=== PATIENT | male | born 1950 | race African-American/Black ===

== ENCOUNTER 2018-08-10 04:00 | Inpatient (IN) | payer MEDICARE, OTHER ==
[~2018-08-10] VITALS: Ht 167.6 cm; Wt 51.9 kg
[2018-08-10 04:01] VITALS: BP 105/83
--- NOTE | 2018-08-10 04:12 | NUR ---
ED Nurse Note: pt was brought in by [facility] from [facility] c/o decrease appetite, per ems, pt loss 5lbs in a month. pt neuro assessment is pt is alert and oriented times 1, however, pt is able to follow simple commands such as "Turn to side". pt pupiles are round and reactive to light and accomodating. pt cardicac assessment is within normal limits except for HR of 106 in initial assessment. S1 and S2 are noted. pulse and sensaton is noted on all 4 extremities. pt has both legs amputated. pt resperation assessment is within normal limits, all lung sounds are clear on ascultation, no SOB noted, pt O2 is 95 %.
[2018-08-10] MEDS ORDERED: DOCUSATE SODIU100 MG ORAL (04:43)
[2018-08-10] MEDS ORDERED: MEGESTROL ACETA40 MG PO (04:43)
[2018-08-10] MEDS ORDERED: PLAVIX75 MG ORAL (04:43)
[2018-08-10] MEDS ORDERED: EMERGEN-C 500500 MG PO (04:43)
[2018-08-10] MEDS ORDERED: ATORVASTATIN CA80 MG ORAL (04:43)
[2018-08-10] MEDS ORDERED: MILK OF MA2400 MG/10 ORAL (04:43)
[2018-08-10] MEDS ORDERED: ASPIR 8181 MG ORAL (04:43)
[2018-08-10] MEDS ORDERED: TRAMADOL HCL50 MG ORAL (04:43)
[2018-08-10] MEDS ORDERED: PRO-STAT LIQUID30 ML ORAL (04:43)
[2018-08-10] MEDS ORDERED: ACETAMINOPHEN325 M1 ORAL (04:43)
[2018-08-10] MEDS ORDERED: MELATONIN3 MG ORAL (04:43)
--- NOTE | 2018-08-10 05:14 | Emergency Room Report ---
History of Present Illness General Chief Complaint: General Complaint Source: Patient Present Illness HPI This is a 67-year-old male with a history of CVA, diabetes with bilateral BKA. He presents with altered mental status with decreased appetite. Also with a 5 pound weight loss in the last month. Unable to get any history because of patient condition. Allergies: Coded Allergies: No Known Allergies (Unverified , 08/10/18) Patient History Past Medical History: see triage record, old chart reviewed Past Surgical History: other - Bilateral AKA Pertinent Family History: none Social History: Denies: smoking Immunizations: other Reviewed Nursing Documentation: PMH: Agreed; PSxH: Agreed Nursing Documentation-PMH Hx Hypertension: Yes Hx Diabetes: Yes Review of Systems Constitutional: Reports: weakness All Other Systems: limited - Patient is nonverbal Physical Exam Vital Signs Date Time Temp Pulse Resp B/P (MAP) Pulse Ox O2 Delivery O2 Flow Rate FiO2 08/10/18 03:52 98.2 59 20 105/83 99 08/10/18 04:01 Room Air 98 vitals unremarkable Sp02 EP Interpretation: reviewed, normal General Appearance: cachetic, thin, Chronically Ill Head: normocephalic, atraumatic Eyes: bilateral eye PERRL, bilateral eye EOMI ENT: hearing grossly normal, dry mucus membranes Neck: full range of motion, supple, no meningismus Respiratory: chest non-tender, lungs clear, normal breath sounds Cardiovascular #1: regular rate, rhythm, no murmur Gastrointestinal: normal bowel sounds, non tender, no mass, no organomegaly, no bruit, non-distended Musculoskeletal: back normal, other - Contracted, bilateral AKA Psychiatric: mood/affect normal Skin: warm/dry Medical Decision Making Diagnostic Impression: Primary Impression: UTI (urinary tract infection) Qualified Codes: N30.00 - Acute cystitis without hematuria Additional Impressions: ARF (acute renal failure) Qualified Codes: N17.9 - Acute kidney failure, unspecified Severe dehydration FTT (failure to thrive) in adult Anemia, unspecified Qualified Codes: D64.9 - Anemia, unspecified Proteinuria Qualified Codes: R80.9 - Proteinuria, unspecified ER Course Patient presents with generalize weakness. He is very dehydrated. Urine was just very purulent-looking. Antibiotic started. IV fluid given. Patient is perking up more and more alert. Patient will be admitted for IV antibiotics and IV fluid. I discussed the case with Dr. Marshall who will admit. Lab Results Impression labs with leukocytosis and renal failure Last Vital Signs Date Time Temp Pulse Resp B/P (MAP) Pulse Ox O2 Delivery O2 Flow Rate FiO2 08/10/18 04:01 59 20 Room Air 98 08/10/18 04:01 98.2 105/83 99 Status: improved Disposition: ADMITTED INPATIENT Condition: Serious Konstantin Galdamez MD Aug 10, 2018 05:14
[2018-08-10] MEDS ORDERED: Cefepime HCl 1 GM in D5W 55 ML IVPB ONE (05:15)
[2018-08-10 05:33] LABS: HEMATOCRIT 36.9 % (42.0-52.0); HEMOGLOBIN 11.8 G/DL (14.2-18.0); MEAN CORPUSCULAR VOLUME 86 FL (80-99); PLATELET COUNT 434 K/UL (150-450); RED BLOOD COUNT 4.29 M/UL (4.70-6.10); RED CELL DISTRIBUTION WIDTH 15.5 % (11.6-14.8); WHITE BLOOD COUNT 18.5 K/UL (4.8-10.8)
[2018-08-10 05:34] LABS: APPEARANCE,URINE VERY CLOUDY; BILIRUBIN, URINE NEGATIVE (NEGATIVE); COLOR,URINE PALE YELLOW; GLUCOSE, URINE (UA) NEGATIVE (NEGATIVE); KETONES,URINE 1+ (NEGATIVE); LEUKOCYTE ESTERASE ,URINE 3+ (NEGATIVE); NITRITE,URINE NEGATIVE (NEGATIVE); PH,URINE 8 (4.5-8.0); PROTEIN,URINE 3+ (NEGATIVE); UROBILINOGEN,URINE 1 MG/DL (0.0-1.0)
[2018-08-10 05:48] LABS: ANION GAP 17 mmol/L (5-15); BLOOD UREA NITROGEN 107 mg/dL (7-18); CALCIUM 9.5 MG/DL (8.5-10.1); CARBON DIOXIDE 16 MMOL/L (21-32); CHLORIDE 110 MMOL/L (98-107); CREATININE 3.1 MG/DL (0.55-1.30); POTASSIUM 4.6 MMOL/L (3.5-5.1); SODIUM 143 MMOL/L (136-145)
[2018-08-10 05:58] LABS: ALANINE AMINOTRANSFERASE 13 U/L (12-78); ALBUMIN 2.4 G/DL (3.4-5.0); ALBUMIN/GLOBULIN RATIO 0.4 (1.0-2.7); ALKALINE PHOSPHATASE 91 U/L (46-116); ASPARTATE AMINO TRANSFERASE 14 U/L (15-37); BILIRUBIN,TOTAL 1.3 MG/DL (0.2-1.0)
[2018-08-10 06:00] VITALS: BP 142/75
[2018-08-10 06:00] LABS: BILIRUBIN,DIRECT 0.8 MG/DL (0.0-0.3)
--- NOTE | 2018-08-10 06:06 | NUR ---
ED Nurse Note: nurse on the snf phone number nurse maurisio [phone]. rehab address, [address] [place] [address]
--- NOTE | 2018-08-10 07:20 | NUR ---
HAND-OFF: Report given to EFFIE SMITH.
[2018-08-10 08:00] VITALS: BP 122/73
--- NOTE | 2018-08-10 08:46 | NUR ---
ED Nurse Note: Report given to Renetta SMITH of Med Surg unit.
[2018-08-10] MEDS ORDERED: D5 1/2NS 1,000 ML IV SCH (14:00)
--- NOTE | 2018-08-10 14:01 | Consultation ---
Consult Note Consult Note Asked to eval at the request of Dr Marshall for renal failure This is a 67-year-old male with a history of CVA, diabetes with bilateral BKA. He presents with altered mental status with decreased appetite. Also with a 5 pound weight loss in the last month. Unable to get any history because of patient condition. No Known Allergies (Unverified , 08/10/18) Past Surgical History: other - Bilateral AKA Hx Hypertension: Yes Hx Diabetes: Yes examined Poor historian data reviewed Assessment/Plan Acute Renal Failure Likely Underlying CKD Dehydration FTT , HypoAlbuminemia UTI Anemia DM , ? Nephropathy CAD Reocephin IV fluids Anemia jorge Monitor I&O and renal parameters Per orders Gennaro Cagle MD Aug 10, 2018 14:01
[2018-08-10 16:00] VITALS: BP 93/70
[2018-08-10] MEDS ORDERED: cefTRIAXone 1 GM in D5W 55 ML IVPB SCH (16:00)
[2018-08-10] MEDS: Pantoprazole Inj IVP SCH ×2 (16:15→21:12)
[2018-08-10] MEDS: Heparin 5000 units/ml inj SUBQ SCH ×2 (16:17→21:13)
[2018-08-10] MEDS ORDERED: traMADol 50mg tab ORAL PRN (16:30)
[2018-08-10] MEDS ORDERED: Acetaminophen 500mg (ES) tab ORAL PRN (16:30)
--- NOTE | 2018-08-10 16:31 | History & Physical ---
History and Physical History & Physicial JoB # [id number] Yannick Marshall MD Aug 10, 2018 16:31
--- NOTE | 2018-08-10 17:00 | NUR ---
NURSE NOTES: placed Pelayo catheter Fr 16, return of small amount of cloudy dark yellow urine noted.
--- NOTE | 2018-08-10 17:12 | Consultation ---
History of Present Illness General Date patient seen: Aug 10, 2018 Chief Complaint: General Complaint Present Illness HPI 67-year-old male with a history of CVA, diabetes with bilateral BKA, dementia, half-way resident brought in for evaluation of altered mental status with decreased appetite. . Unable to get any history because of patient condition. Pt was found to be in renal failure and septic. He is admitted for further management. Allergies: Coded Allergies: No Known Allergies (Unverified , 08/10/18) Medication History Scheduled Amino Acids/Protein Hydrolys (Pro-Stat Liquid), 30 ML ORAL TWICE A DAY, ( Reported) Aspirin* (Aspir 81*), 81 MG ORAL DAILY, (Reported) Atorvastatin Calcium* (Lipitor*), 80 MG ORAL BEDTIME, (Reported) Clopidogrel Bisulfate* (Plavix*), 75 MG ORAL DAILY, (Reported) Docusate Sodium* (Docusate Sodium*), 100 MG ORAL TWICE A DAY, (Reported) Magnesium Hydroxide* (Milk Of Magnesia*), 30 ML ORAL DAILY, (Reported) Scheduled PRN Acetaminophen* (Acetaminophen 325MG Tablet*), 500 MG ORAL Q4H PRN for Moderate Pain (Pain Scale 4-6), (Reported) Melatonin (Melatonin), 4 MG ORAL BEDTIME PRN for Insomnia, (Reported) Tramadol Hcl* (Ultram*), 50 MG ORAL Q6H PRN for For Pain, (Reported) Miscellaneous Medications Megestrol Acetate (Megestrol Acetate), 40 MG PO, (Reported) Vit C/Ascorb Sod/Multivit-Min (Emergen-C 500 mg Chewable Tab), 500 MG PO, ( Reported) Patient History Healthcare decision maker Resuscitation status Advanced Directive on File Past Medical/Surgical History Past Medical/Surgical History: (1) DM (2) CVA (cerebral vascular accident) (3) Proteinuria (4) S/P AKA (above knee amputation) bilateral Review of Systems All Other Systems: negative except mentioned in HPI Physical Exam General Appearance: cachetic Lines, tubes and drains: peripheral HEENT: normocephalic, atraumatic Neck: non-tender, supple Respiratory/Chest: chest wall non-tender, lungs clear Cardiovascular/Chest: normal peripheral pulses Abdomen: normal bowel sounds Genitourinary/Rectal: normal genital exam Extremities: normal range of motion Last 24 Hour Vital Signs Date Time Temp Pulse Resp B/P (MAP) Pulse Ox O2 Delivery O2 Flow Rate FiO2 08/10/18 08:55 98.5 113 16 122/73 100 Room Air 08/10/18 08:00 98.5 113 16 122/73 100 Room Air 08/10/18 06:00 98.2 65 16 142/75 99 08/10/18 04:01 59 20 Room Air 98 08/10/18 04:01 98.2 61 20 105/83 99 08/10/18 03:52 98.2 59 20 105/83 99 Laboratory Tests Test 08/10/18 05:01 White Blood Count 18.5 K/UL (4.8-10.8) H Red Blood Count 4.29 M/UL (4.70-6.10) L Hemoglobin 11.8 G/DL (14.2-18.0) L Hematocrit 36.9 % (42.0-52.0) L Mean Corpuscular Volume 86 FL (80-99) Mean Corpuscular Hemoglobin 27.5 PG (27.0-31.0) Mean Corpuscular Hemoglobin Concent 32.0 G/DL (32.0-36.0) Red Cell Distribution Width 15.5 % (11.6-14.8) H Platelet Count 434 K/UL (150-450) Mean Platelet Volume 5.5 FL (6.5-10.1) L Neutrophils (%) (Auto) % (45.0-75.0) Lymphocytes (%) (Auto) % (20.0-45.0) Monocytes (%) (Auto) % (1.0-10.0) Eosinophils (%) (Auto) % (0.0-3.0) Basophils (%) (Auto) % (0.0-2.0) Differential Total Cells Counted 100 Neutrophils % (Manual) 72 % (45-75) Lymphocytes % (Manual) 21 % (20-45) Monocytes % (Manual) 7 % (1-10) Eosinophils % (Manual) 0 % (0-3) Basophils % (Manual) 0 % (0-2) Band Neutrophils 0 % (0-8) Platelet Estimate Adequate Platelet Morphology Normal Red Blood Cell Morphology Normal Urine Color Pale yellow Urine Appearance Very cloudy Urine pH 8 (4.5-8.0) Urine Specific Garrison 1.010 (1.005-1.035) Urine Protein 3+ (NEGATIVE) H Urine Glucose (UA) Negative (NEGATIVE) Urine Ketones 1+ (NEGATIVE) H Urine Blood 5+ (NEGATIVE) H Urine Nitrite Negative (NEGATIVE) Urine Bilirubin Negative (NEGATIVE) Urine Urobilinogen 1 MG/DL (0.0-1.0) H Urine Leukocyte Esterase 3+ (NEGATIVE) H Urine RBC Tntc /HPF (0 - 0) H Urine WBC Tntc /HPF (0 - 0) H Urine Squamous Epithelial Cells Occasional /LPF Urine Bacteria Many /HPF (NONE) H Sodium Level 143 MMOL/L (136-145) Potassium Level 4.6 MMOL/L (3.5-5.1) Chloride Level 110 MMOL/L (98-107) H Carbon Dioxide Level 16 MMOL/L (21-32) L Anion Gap 17 mmol/L (5-15) H Blood Urea Nitrogen 107 mg/dL (7-18) H Creatinine 3.1 MG/DL (0.55-1.30) H Estimat Glomerular Filtration Rate 24.4 mL/min (>60) Glucose Level 123 MG/DL (74-106) H Calcium Level 9.5 MG/DL (8.5-10.1) Total Bilirubin 1.3 MG/DL (0.2-1.0) H Direct Bilirubin 0.8 MG/DL (0.0-0.3) H Aspartate Amino Transf (AST/SGOT) 14 U/L (15-37) L Alanine Aminotransferase (ALT/SGPT) 13 U/L (12-78) Alkaline Phosphatase 91 U/L (46-116) Troponin I 0.015 ng/mL (0.000-0.056) C-Reactive Protein, Quantitative 8.0 mg/dL (0.00-0.90) H Total Protein 9.2 G/DL (6.4-8.2) H Albumin 2.4 G/DL (3.4-5.0) L Globulin 6.8 g/dL Albumin/Globulin Ratio 0.4 (1.0-2.7) L Microbiology Date/Time Source Procedure Growth Status 08/10/18 07:12 Rectum Received Height (Feet): 4 Weight (Pounds): 123 Medications Current Medications Medications (Trade) Dose Ordered Sig/Jennifer Route PRN Reason Start Time Stop Time Status Last Admin Dose Admin Acetaminophen (Tylenol) 500 mg Q4H PRN ORAL Moderate Pain (Pain Scale 4-6) 08/10/18 16:30 09/09/18 16:29 Aspirin (Ecotrin) 81 mg DAILY ORAL 08/11/18 09:00 09/10/18 08:59 Atorvastatin Calcium (Lipitor) 80 mg BEDTIME ORAL 08/10/18 21:00 09/09/18 20:59 Ceftriaxone Sodium 1 gm/ Dextrose 55 ml @ 110 mls/hr Q24H IVPB 08/10/18 16:00 08/17/18 15:59 08/10/18 16:11 Clopidogrel Bisulfate (Plavix) 75 mg DAILY ORAL 08/11/18 09:00 09/10/18 08:59 Dextrose (Dextrose 50%) 25 ml Q30M PRN IV Hypoglycemia 08/10/18 16:30 09/09/18 16:29 Dextrose (Dextrose 50%) 50 ml Q30M PRN IV Hypoglycemia 08/10/18 16:30 09/09/18 16:29 Dextrose/Sodium Chloride 1,000 ml @ 150 mls/hr Q6H40M IV 08/11/18 14:00 09/09/18 13:59 UNV Heparin Sodium (Porcine) (Heparin 5000 units/ml) 5,000 units EVERY 8 HOURS SUBQ 08/10/18 14:00 09/09/18 13:59 08/10/18 16:17 Insulin Aspart (NovoLOG) BEFORE MEALS AND HS SUBQ 08/10/18 16:30 09/09/18 16:29 Magnesium Hydroxide (Mom) 30 ml DAILY ORAL 08/11/18 09:00 09/10/18 08:59 Megestrol Acetate (Megace) 40 mg BID ORAL 08/10/18 18:00 08/15/18 17:59 Pantoprazole (Protonix) 40 mg EVERY 12 HOURS IVP 08/10/18 14:00 09/09/18 13:59 08/10/18 16:15 Tramadol HCl (Ultram) 50 mg Q6H PRN ORAL severe pain 08/10/18 16:30 08/17/18 16:29 Assessment/Plan Problem List: (1) ARF (acute renal failure) ICD Codes: N17.9 - Acute kidney failure, unspecified SNOMED: 32638566 Qualifiers: Qualified Codes: N17.9 - Acute kidney failure, unspecified (2) Severe dehydration ICD Codes: E86.0 - Dehydration SNOMED: 840156606 (3) UTI (urinary tract infection) ICD Codes: N39.0 - Urinary tract infection, site not specified SNOMED: 77053104 Qualifiers: Qualified Codes: N30.00 - Acute cystitis without hematuria (4) FTT (failure to thrive) in adult ICD Codes: R62.7 - Adult failure to thrive SNOMED: 868649377 Assessment/Plan IV fluids check electrolytes renal studies urine electrolytes might need PEG. dvt prophylaxis Jaylin Dickson MD Aug 10, 2018 17:12
[2018-08-10] MEDS: D5 1/2NS 1,000 ML IV SCH ×2 (17:24→23:48)
[2018-08-10] MEDS: NovoLOG Insulin Flexpen SUBQ SCH ×2 (17:26→21:13)
--- NOTE | 2018-08-10 18:40 | Diagnostic Imaging Report ---
EXAM: XR Chest, 1 View CLINICAL HISTORY: Fatigue, shortness of breath. TECHNIQUE: Frontal view of the chest. COMPARISON: None available FINDINGS: Lungs: Right lung is clear. Left lung shows linear atelectatic changes in the setting of left diaphragmatic elevation. Pleural space: No pneumothorax or pleural effusion. Heart: Normal heart and mediastinal contours with mild tortuosity of the thoracic aorta are noted. No widening or shift. Mediastinum: Unremarkable. Bones/joints: No acute or aggressive osseous lesions. Soft tissues: Surgical clips in the right axilla are incidentally noted. IMPRESSION: Linear atelectasis at the left lung base and left diaphragmatic elevation.
--- NOTE | 2018-08-10 19:00 | NUR ---
HAND-OFF: Report given to SARAH Lee.
[2018-08-10 20:00] VITALS: BP 157/72
--- NOTE | 2018-08-10 20:00 | NUR ---
NURSE NOTES: Patient received in bed, awake. Bed is locked in low position. IV infusing on MAHNAZ. FC draining light ramesh urine via gravity. Will continue to monitor.
[2018-08-10] MEDS ORDERED: Atorvastatin 80mg tab ORAL SCH (21:00)
--- NOTE | 2018-08-10 22:00 | History and Physical Report ---
DATE OF ADMISSION: 08/10/2018 CHIEF COMPLAINT: Transferred from the nursing facility after decreased oral intake. 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 Shortly after initial evaluation, the patient was admitted to the hospital with acute kidney infection on chronic renal insufficiency as well as UTI, severe dehydration. PAST MEDICAL HISTORY/PAST SURGICAL HISTORY: As above. History of DVT of lower extremity, bilateral lower extremity AKA due to the severe infection, sepsis, diabetes type 2, hypertension, prior history of stroke x2, dysphagia, advanced dementia, history of chronic smoker in the past, alcohol abuse, and heroin abuse. MEDICATIONS: Please refer to medication reconciliation. ALLERGIES: No known drug allergies. SOCIAL HISTORY: The patient at this time is not smoking or alcohol abuse. longterm resident, however, history of smoking, alcohol abuse, and heroin abuse in the past. FAMILY HISTORY: Noncontributory. REVIEW OF SYSTEMS: Very limited secondary to the patient's status. The patient is nonverbal. Most of the history is taken from the custodial documentation as well as the ER note. No fever or chills was recorded. No loss of consciousness, however, decreased oral intake. PHYSICAL EXAMINATION: VITAL SIGNS: On admission, temperature 98.2, pulse of 59, respirations 20, and blood pressure 105/83. GENERAL: The patient is awake and responsive, but not verbal. HEAD AND NECK: Pupils equal and reactive to light. Extraocular movements intact. NECK: Supple. No JVD. LUNGS: air entry, poor inspiratory effort. No wheeze or rhonchi. HEART: S1, S2. Distant heart sounds. No murmur or gallops. ABDOMEN: Soft, nondistended, nontender. Positive bowel sounds. EXTREMITIES: No cyanosis or clubbing. The patient has bilateral AKA, contracted. NEUROLOGIC: Cranial nerves II through XII are grossly intact. The patient is moving all the extremities spontaneously. Gait was not assessed due to the patient's status. LABORATORY DATA: On admission from the ER, WBC of 18.5, hemoglobin 11, hematocrit 36, and platelet is 434,000. Sodium 143, potassium 4.6, chloride 110, bicarbonate 16, BUN 107, creatinine 3.1, GFR is 24, glucose is 123, AST of 14, ALT of 13. is 0.015. CRP is 8.0. Total protein is 9.2, albumin is 2.4. Urinalysis is +3 protein, +1 ketone, +5 blood, negative nitrite, +3 leukocyte tainted, rbc tainted, wbc , many bacteria. ASSESSMENT: 1. Acute kidney injury on chronic renal insufficiency. 2. Failure to thrive. 3. Severe dehydration. 4. Decreased oral intake. 5. Diabetes type 2. 6. Status post bilateral lower extremity AKA. 7. Hypertension, presently normotensive. 8. Advanced dementia. 9. Prior history of stroke x2. 10. Ex-smoker. 11. History of alcohol abuse. 12. History of heroin abuse. 13. Severe protein-calorie malnutrition. PLAN: We will continue broad-spectrum antibiotic, Rocephin. Follow up with cultures and laboratory. IV hydration. Accu-Chek with sliding scale. We will continue to get nutritional consultation. Code status at this time is Full Code and for DVT prophylaxis, heparin subcutaneous. Discussed with Dr. Dickson from Pulmonary/Critical Care and Dr. Cagle from Nephrology. Yannick Marshall M.D. DR: Hien JOB#: [id number] CC:
[2018-08-11] VITALS: BP 134/73
--- NOTE | 2018-08-11 02:13 | NUR ---
NURSE NOTES: Noted patient muro cath bag draining pinkish urine now from light ramesh urine earlier. Message left to Dr. Marshall.
[2018-08-11 04:00] VITALS: BP 145/78
[2018-08-11] MEDS: Heparin 5000 units/ml inj SUBQ SCH (05:15)
[2018-08-11] MEDS: D5 1/2NS 1,000 ML IV SCH ×3 (05:23→18:22)
[2018-08-11] MEDS: NovoLOG Insulin Flexpen SUBQ SCH ×4 (05:25→21:00)
[2018-08-11] MEDS ORDERED: cefTRIAXone 1 GM in D5W 55 ML IVPB SCH (06:00)
[2018-08-11 06:45] LABS: BASOPHILS % (AUTO) 0.2 % (0.0-2.0); EOSINOPHILS % (AUTO) 0.1 % (0.0-3.0); HEMATOCRIT 30.5 % (42.0-52.0); HEMOGLOBIN 9.7 G/DL (14.2-18.0); LYMPHOCYTES % (AUTO) 14.5 % (20.0-45.0); MEAN CORPUSCULAR VOLUME 87 FL (80-99); MONOCYTES % (AUTO) 7.6 % (1.0-10.0); NEUTROPHILS % (AUTO) 77.5 % (45.0-75.0); PLATELET COUNT 316 K/UL (150-450); RED BLOOD COUNT 3.53 M/UL (4.70-6.10); RED CELL DISTRIBUTION WIDTH 15.7 % (11.6-14.8); WHITE BLOOD COUNT 10.2 K/UL (4.8-10.8)
[2018-08-11 07:18] LABS: ALANINE AMINOTRANSFERASE 9 U/L (12-78); ALBUMIN 1.9 G/DL (3.4-5.0); ALBUMIN/GLOBULIN RATIO 0.3 (1.0-2.7); ALKALINE PHOSPHATASE 75 U/L (46-116); ANION GAP 13 mmol/L (5-15); ASPARTATE AMINO TRANSFERASE 17 U/L (15-37); BILIRUBIN,TOTAL 0.7 MG/DL (0.2-1.0); BLOOD UREA NITROGEN 80 mg/dL (7-18); CALCIUM 8.5 MG/DL (8.5-10.1); CARBON DIOXIDE 17 MMOL/L (21-32); CHLORIDE 119 MMOL/L (98-107); CHOLESTEROL 88 MG/DL (< 200); CREATININE 2.2 MG/DL (0.55-1.30); FERRITIN 1236 NG/ML (8-388); GAMMA GLUTAMYL TRANSPEPTIDASE 20 U/L (5-85); HDL CHOLESTEROL 30 MG/DL (40-60); PHOSPHORUS 3.2 MG/DL (2.5-4.9); POTASSIUM 3.1 MMOL/L (3.5-5.1); SODIUM 149 MMOL/L (136-145); TRIGLYCERIDES 68 MG/DL (30-150)
--- NOTE | 2018-08-11 07:18 | NUR ---
NURSE NOTES: Received call from Lab re critical troponin 0.201. Message left to Dr. Marshall.
--- NOTE | 2018-08-11 07:36 | NUR ---
HAND-OFF: Report given to Renetta SMITH. Addendum: 08/11/18 at 0739 by CESILIA BOWSER RN RN Endorsed re: critical lab troponin 0.201
[2018-08-11 07:46] LABS: % IRON SATURATION 12 % (15-50); IRON 13 ug/dL (50-175); TOTAL IRON BINDING CAPACITY 111 ug/dL (250-450)
--- NOTE | 2018-08-11 08:10 | NUR ---
NURSE NOTES: received pt in bed, awake, no sign of pain or discomfort. Patient is aphasic, unable to assess orientation but he complies when asked to turn to sides. Pelayo catheter in place, draining dark yellow urine. IV access at MAHNAZ, saline locked. Bed in the lowest position possible, call light within easy reach, siderails up x3. Will continue to monitor patient and follow up with the plan of care. Received call from dr. Marshall regarding Trop 0.201 and Pinkish urination following last night heparin administration. Got order of d/c heparin, order has been carried out. Addendum: 08/11/18 at 0835 by MONROE BOSCH RN MAHNAZ access, being infused IVF.
[2018-08-11] MEDS: Pantoprazole Inj IVP SCH ×2 (08:14→19:03)
[2018-08-11] MEDS: Milk of Magnesia 30ml Ud ORAL SCH ×2 (08:14→08:55)
[2018-08-11] MEDS: Aspirin EC 81mg tab ORAL SCH ×2 (08:15→08:54)
--- NOTE | 2018-08-11 08:55 | NUR ---
NURSE NOTES: nurse crushed pt's meds and tried to give it to patient with MOM liquid, but patient refused, with a sudden movement, almost hitting the nurse. Nurse explained the need for him to take those meds, pt still refused.
--- NOTE | 2018-08-11 09:19 | NUR ---
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 UTI VS: BP 142/75, P 113, T 98.3, RR 20, SpO2 99 WBC 18.5, RBC 4.29, Hgb 11.8, Hct 36.9, TROPONIN I 0.201, Urine Protein 3+, Urine Ketones 1+, Urine Blood 5+ CXR IMPRESSION: Linear atelectasis at the left lung base and left diaphragmatic elevation. IS:NS x1L IV CEFEPIME HCI 55ml IVPB HEPARIN SUBQ PROTONIX 40mg D5 NS x1L IV CEFTRIAXONE 55ml LIPITOR 80mg ADMITTED TO MED/SURG DC PLAN: RETURN TO [facility]
--- NOTE | 2018-08-11 11:00 | NUR ---
NURSE NOTES: patient refused am meds, only given Protonix IV. Dr. Marshall notified.
[2018-08-11 11:34] VITALS: BP 94/49
--- NOTE | 2018-08-11 12:13 | NUR ---
RD ASSESSMENT & RECOMMENDATIONS SEE CARE ACTIVITY FOR COMPLETE ASSESSMENT DAILY ESTIMATED NEEDS: Needs based on DM, renal 55.9kg 25-30 kcals/kg 7754-2402 total kcals 1-1.5 g protein/kg 56-84 g total protein 25-30 mL/kg 9977-2131 total fluid mLs NUTRITION DIAGNOSIS: Altered nutrition related lab values r/t clinical status as evidenced by elev NA (149), low K (3.1), elev BUN (80) and creat (2.2), elev BNP (3831). CURRENT DIET: NPO PO DIET RECOMMENDATIONS: W/ POOR PO INTAKE, rec LOW NA diet (texture per PICTURE ENLARGER) ADDITIONAL RECOMMENDATIONS: 1) PICTURE ENLARGER eval for appropriate texture 2) Pt adm w/ WT LOSS-> PLEASE TXR PT TO BED W/ SCALE 3) Monitor po intake and BG/ need for carb restriction 4) Add GLUCERNA 1 tetra tiago TID w/ all meals 5) Obtain weekly wts
--- NOTE | 2018-08-11 15:13 | Internal Med Progress Note ---
Subjective Physician Name Yannick Marshall Attending Physician Yannick Marshall MD Current Medications Medications (Trade) Dose Ordered Sig/Jennifer Route PRN Reason Start Time Stop Time Status Last Admin Dose Admin Acetaminophen (Tylenol) 500 mg Q4H PRN ORAL Moderate Pain (Pain Scale 4-6) 08/10/18 16:30 09/09/18 16:29 Aspirin (Ecotrin) 81 mg DAILY ORAL 08/11/18 09:00 09/10/18 08:59 Atorvastatin Calcium (Lipitor) 10 mg BEDTIME ORAL 08/11/18 21:00 09/09/18 20:59 Ceftriaxone Sodium 1 gm/ Dextrose 55 ml @ 110 mls/hr Q24H IVPB 08/10/18 16:00 08/17/18 15:59 08/10/18 16:11 Clopidogrel Bisulfate (Plavix) 75 mg DAILY ORAL 08/11/18 09:00 09/10/18 08:59 Dextrose (Dextrose 50%) 25 ml Q30M PRN IV Hypoglycemia 08/10/18 16:30 09/09/18 16:29 Dextrose (Dextrose 50%) 50 ml Q30M PRN IV Hypoglycemia 08/10/18 16:30 09/09/18 16:29 Dextrose/Sodium Chloride 1,000 ml @ 100 mls/hr Q10H IV 08/11/18 17:08 09/09/18 17:07 Insulin Aspart (NovoLOG) BEFORE MEALS AND HS SUBQ 08/10/18 16:30 09/09/18 16:29 08/11/18 13:53 Megestrol Acetate (Megace) 40 mg BID ORAL 08/10/18 18:00 08/15/18 17:59 08/10/18 17:24 Pantoprazole (Protonix) 40 mg EVERY 12 HOURS IVP 08/10/18 14:00 09/09/18 13:59 08/11/18 08:14 Tramadol HCl (Ultram) 50 mg Q6H PRN ORAL severe pain 08/10/18 16:30 08/17/18 16:29 Allergies: Coded Allergies: No Known Allergies (Unverified , 08/10/18) Subjective awake, responsive, not verbal. BUN/CR: 80/2.2.2 Objective Last Vital Signs Date Time Temp Pulse Resp B/P (MAP) Pulse Ox O2 Delivery O2 Flow Rate FiO2 08/11/18 11:34 98.0 91 18 94/49 (64) 98 08/10/18 12:00 Room Air 08/10/18 04:01 98 Laboratory Tests Test 08/11/18 05:45 White Blood Count 10.2 K/UL (4.8-10.8) Red Blood Count 3.53 M/UL (4.70-6.10) L Hemoglobin 9.7 G/DL (14.2-18.0) L Hematocrit 30.5 % (42.0-52.0) L Mean Corpuscular Volume 87 FL (80-99) Mean Corpuscular Hemoglobin 27.4 PG (27.0-31.0) Mean Corpuscular Hemoglobin Concent 31.7 G/DL (32.0-36.0) L Red Cell Distribution Width 15.7 % (11.6-14.8) H Platelet Count 316 K/UL (150-450) Mean Platelet Volume 6.1 FL (6.5-10.1) L Neutrophils (%) (Auto) 77.5 % (45.0-75.0) H Lymphocytes (%) (Auto) 14.5 % (20.0-45.0) L Monocytes (%) (Auto) 7.6 % (1.0-10.0) Eosinophils (%) (Auto) 0.1 % (0.0-3.0) Basophils (%) (Auto) 0.2 % (0.0-2.0) Sodium Level 149 MMOL/L (136-145) H Potassium Level 3.1 MMOL/L (3.5-5.1) L Chloride Level 119 MMOL/L (98-107) H Carbon Dioxide Level 17 MMOL/L (21-32) L Anion Gap 13 mmol/L (5-15) Blood Urea Nitrogen 80 mg/dL (7-18) H Creatinine 2.2 MG/DL (0.55-1.30) H Estimat Glomerular Filtration Rate 36.1 mL/min (>60) Glucose Level 141 MG/DL (74-106) H Hemoglobin A1c 5.5 % (4.3-6.0) Uric Acid 12.7 MG/DL (2.6-7.2) H Calcium Level 8.5 MG/DL (8.5-10.1) Phosphorus Level 3.2 MG/DL (2.5-4.9) Magnesium Level 2.1 MG/DL (1.8-2.4) Iron Level 13 ug/dL (50-175) L Total Iron Binding Capacity 111 ug/dL (250-450) L Percent Iron Saturation 12 % (15-50) L Unsaturated Iron Binding 98 ug/dL (112-346) L Ferritin 1236 NG/ML (8-388) H Total Bilirubin 0.7 MG/DL (0.2-1.0) Gamma Glutamyl Transpeptidase 20 U/L (5-85) Aspartate Amino Transf (AST/SGOT) 17 U/L (15-37) Alanine Aminotransferase (ALT/SGPT) 9 U/L (12-78) L Alkaline Phosphatase 75 U/L (46-116) Troponin I 0.201 ng/mL (0.000-0.056) Pro-B-Type Natriuretic Peptide 3831 pg/mL (0-125) H Total Protein 7.6 G/DL (6.4-8.2) Albumin 1.9 G/DL (3.4-5.0) L Globulin 5.7 g/dL Albumin/Globulin Ratio 0.3 (1.0-2.7) L Triglycerides Level 68 MG/DL (30-150) Cholesterol Level 88 MG/DL (< 200) LDL Cholesterol 47 mg/dL (<100) HDL Cholesterol 30 MG/DL (40-60) L Cholesterol/HDL Ratio 2.9 (3.3-4.4) L Lipase 150 U/L (73-393) Vitamin B12 Level 504 PG/ML (193-986) Folate 4.4 NG/ML (8.6-58.9) L Thyroid Stimulating Hormone (TSH) 0.525 uiU/mL (0.358-3.740) Cortisol AM Sample Pending Microbiology Date/Time Source Procedure Growth Status 08/10/18 05:01 Urine,Clean Catch Urine Culture - Preliminary Gram Negative Alin Resulted 08/10/18 07:12 Rectum Received Intake and Output 08/10/18 08/11/18 19:00 07:00 Intake Total 150 ml 1500 ml Output Total 900 ml Balance 150 ml 600 ml Intake IV Total 150 ml 1500 ml Output Urine Total 900 ml Objective GENERAL: The patient is awake and responsive, but not verbal. HEAD AND NECK: Pupils equal and reactive to light. Extraocular movements intact. NECK: Supple. No JVD. LUNGS: air entry, poor inspiratory effort. No wheeze or rhonchi. HEART: S1, S2. Distant heart sounds. No murmur or gallops. ABDOMEN: Soft, nondistended, nontender. Positive bowel sounds. : Pel[place]o cath EXTREMITIES: No cyanosis or clubbing. The patient has bilateral AKA, contracted. NEUROLOGIC: Cranial nerves II through XII are grossly intact. The patient is moving all the extremities spontaneously. Gait was not assessed due to the patient's status. Assessment/Plan Assessment/Plan ASSESSMENT: 1. Acute kidney injury on chronic renal insufficiency. 2. Failure to thrive. 3. Severe dehydration. 4. Decreased oral intake. 5. Diabetes type 2. 6. Status post bilateral lower extremity AKA. 7. Hypertension, presently normotensive. 8. Advanced dementia. 9. Prior history of stroke x2. 10. Ex-smoker. 11. History of alcohol abuse. 12. History of heroin abuse. 13. Severe protein-calorie malnutrition. 14. CNR UTI. PLAN: Broad-spectrum antibiotic: Rocephin. Monitor cultures and laboratory. IV hydration Accu-Chek with sliding scale. Code status: Full Code DVT prophylaxis: heparin subcutaneous. Discussed with Dr. Dickson from Pulmonary/Critical Care and Dr. Cagle from Nephrology. Consider GI consult for PEG placement due to severe malnutrition. Yannick Marshall MD Aug 11, 2018 15:13
--- NOTE | 2018-08-11 15:31 | Infectious Diseases Prog Note ---
Assessment/Plan Problems: (1) Sepsis Assessment & Plan: with leukocytosis , source most likely his UTI, will start cefepime empirically and send blood culture x2. stop ceftriaxone (2) UTI (urinary tract infection) Assessment & Plan: will start cefepime empirically pending cultures (3) FTT (failure to thrive) in adult Assessment & Plan: may benefit from PEG tube , dietitian consult (4) Severe dehydration Assessment & Plan: continue ivf (5) ARF (acute renal failure) Assessment & Plan: continue IVF for hydration (6) Anemia, unspecified Subjective Allergies: Coded Allergies: No Known Allergies (Unverified , 08/10/18) Objective Vital Signs Last 24 Hour Vital Signs Date Time Temp Pulse Resp B/P (MAP) Pulse Ox O2 Delivery O2 Flow Rate FiO2 08/11/18 11:34 98.0 91 18 94/49 (64) 98 08/11/18 04:00 98.5 101 17 145/78 (100) 98 08/11/18 00:00 98.5 110 15 134/73 (93) 98 08/10/18 20:00 98.0 111 16 157/72 (100) 96 08/10/18 16:00 97.9 101 20 93/70 (78) 99 Height (Feet): 4 Height (Inches): 0.00 Weight (Pounds): 123 Microbiology Date/Time Source Procedure Growth Status 08/10/18 05:01 Urine,Clean Catch Urine Culture - Preliminary Gram Negative Alin Resulted 08/10/18 07:12 Rectum Received Laboratory Tests Test 08/11/18 05:45 White Blood Count 10.2 K/UL (4.8-10.8) Red Blood Count 3.53 M/UL (4.70-6.10) L Hemoglobin 9.7 G/DL (14.2-18.0) L Hematocrit 30.5 % (42.0-52.0) L Mean Corpuscular Volume 87 FL (80-99) Mean Corpuscular Hemoglobin 27.4 PG (27.0-31.0) Mean Corpuscular Hemoglobin Concent 31.7 G/DL (32.0-36.0) L Red Cell Distribution Width 15.7 % (11.6-14.8) H Platelet Count 316 K/UL (150-450) Mean Platelet Volume 6.1 FL (6.5-10.1) L Neutrophils (%) (Auto) 77.5 % (45.0-75.0) H Lymphocytes (%) (Auto) 14.5 % (20.0-45.0) L Monocytes (%) (Auto) 7.6 % (1.0-10.0) Eosinophils (%) (Auto) 0.1 % (0.0-3.0) Basophils (%) (Auto) 0.2 % (0.0-2.0) Sodium Level 149 MMOL/L (136-145) H Potassium Level 3.1 MMOL/L (3.5-5.1) L Chloride Level 119 MMOL/L (98-107) H Carbon Dioxide Level 17 MMOL/L (21-32) L Anion Gap 13 mmol/L (5-15) Blood Urea Nitrogen 80 mg/dL (7-18) H Creatinine 2.2 MG/DL (0.55-1.30) H Estimat Glomerular Filtration Rate 36.1 mL/min (>60) Glucose Level 141 MG/DL (74-106) H Hemoglobin A1c 5.5 % (4.3-6.0) Uric Acid 12.7 MG/DL (2.6-7.2) H Calcium Level 8.5 MG/DL (8.5-10.1) Phosphorus Level 3.2 MG/DL (2.5-4.9) Magnesium Level 2.1 MG/DL (1.8-2.4) Iron Level 13 ug/dL (50-175) L Total Iron Binding Capacity 111 ug/dL (250-450) L Percent Iron Saturation 12 % (15-50) L Unsaturated Iron Binding 98 ug/dL (112-346) L Ferritin 1236 NG/ML (8-388) H Total Bilirubin 0.7 MG/DL (0.2-1.0) Gamma Glutamyl Transpeptidase 20 U/L (5-85) Aspartate Amino Transf (AST/SGOT) 17 U/L (15-37) Alanine Aminotransferase (ALT/SGPT) 9 U/L (12-78) L Alkaline Phosphatase 75 U/L (46-116) Troponin I 0.201 ng/mL (0.000-0.056) Pro-B-Type Natriuretic Peptide 3831 pg/mL (0-125) H Total Protein 7.6 G/DL (6.4-8.2) Albumin 1.9 G/DL (3.4-5.0) L Globulin 5.7 g/dL Albumin/Globulin Ratio 0.3 (1.0-2.7) L Triglycerides Level 68 MG/DL (30-150) Cholesterol Level 88 MG/DL (< 200) LDL Cholesterol 47 mg/dL (<100) HDL Cholesterol 30 MG/DL (40-60) L Cholesterol/HDL Ratio 2.9 (3.3-4.4) L Lipase 150 U/L (73-393) Vitamin B12 Level 504 PG/ML (193-986) Folate 4.4 NG/ML (8.6-58.9) L Thyroid Stimulating Hormone (TSH) 0.525 uiU/mL (0.358-3.740) Cortisol AM Sample Pending Current Medications Medications (Trade) Dose Ordered Sig/Jennifer Route PRN Reason Start Time Stop Time Status Last Admin Dose Admin Acetaminophen (Tylenol) 500 mg Q4H PRN ORAL Moderate Pain (Pain Scale 4-6) 08/10/18 16:30 09/09/18 16:29 Aspirin (Ecotrin) 81 mg DAILY ORAL 08/11/18 09:00 09/10/18 08:59 Atorvastatin Calcium (Lipitor) 10 mg BEDTIME ORAL 08/11/18 21:00 09/09/18 20:59 Ceftriaxone Sodium 1 gm/ Dextrose 55 ml @ 110 mls/hr Q24H IVPB 08/10/18 16:00 08/17/18 15:59 08/10/18 16:11 Clopidogrel Bisulfate (Plavix) 75 mg DAILY ORAL 08/11/18 09:00 09/10/18 08:59 Dextrose (Dextrose 50%) 25 ml Q30M PRN IV Hypoglycemia 08/10/18 16:30 09/09/18 16:29 Dextrose (Dextrose 50%) 50 ml Q30M PRN IV Hypoglycemia 08/10/18 16:30 09/09/18 16:29 Dextrose/Sodium Chloride 1,000 ml @ 100 mls/hr Q10H IV 08/11/18 17:08 09/09/18 17:07 Insulin Aspart (NovoLOG) BEFORE MEALS AND HS SUBQ 08/10/18 16:30 09/09/18 16:29 08/11/18 13:53 Megestrol Acetate (Megace) 40 mg BID ORAL 08/10/18 18:00 08/15/18 17:59 08/10/18 17:24 Pantoprazole (Protonix) 40 mg EVERY 12 HOURS IVP 08/10/18 14:00 09/09/18 13:59 08/11/18 08:14 Tramadol HCl (Ultram) 50 mg Q6H PRN ORAL severe pain 08/10/18 16:30 08/17/18 16:29 Robert Massey M.D. Aug 11, 2018 15:31
[2018-08-11 16:00] VITALS: BP 116/60
--- NOTE | 2018-08-11 17:04 | Pulmonology Progress Note ---
Assessment/Plan Problems: (1) ARF (acute renal failure) (2) Severe dehydration (3) UTI (urinary tract infection) (4) FTT (failure to thrive) in adult Assessment/Plan continue iv fluids check electrolytes psych evaluation check cultures dvt prophylaxis symptomatic treatment Subjective ROS Limited/Unobtainable: No Interval Events: not talking, looks awake Allergies: Coded Allergies: No Known Allergies (Unverified , 08/10/18) Objective Last 24 Hour Vital Signs Date Time Temp Pulse Resp B/P (MAP) Pulse Ox O2 Delivery O2 Flow Rate FiO2 08/11/18 11:34 98.0 91 18 94/49 (64) 98 08/11/18 04:00 98.5 101 17 145/78 (100) 98 08/11/18 00:00 98.5 110 15 134/73 (93) 98 08/10/18 20:00 98.0 111 16 157/72 (100) 96 Intake and Output 08/10/18 08/11/18 19:00 07:00 Intake Total 150 ml 1500 ml Output Total 900 ml Balance 150 ml 600 ml Intake IV Total 150 ml 1500 ml Output Urine Total 900 ml General Appearance: cachetic HEENT: normocephalic, atraumatic Respiratory/Chest: chest wall non-tender, lungs clear Cardiovascular: normal peripheral pulses, normal rate Abdomen: normal bowel sounds, no organomegaly Genitourinary: normal external genitalia Extremities: no clubbing Microbiology Date/Time Source Procedure Growth Status 08/10/18 05:01 Urine,Clean Catch Urine Culture - Preliminary Gram Negative Alin Resulted 08/10/18 07:12 Rectum Received Laboratory Tests 08/11/18 05:45: White Blood Count 10.2, Red Blood Count 3.53L, Hemoglobin 9.7L, Hematocrit 30.5L , Mean Corpuscular Volume 87, Mean Corpuscular Hemoglobin 27.4, Mean Corpuscular Hemoglobin Concent 31.7L, Red Cell Distribution Width 15.7H, Platelet Count 316, Mean Platelet Volume 6.1L, Neutrophils (%) (Auto) 77.5H, Lymphocytes (%) (Auto) 14.5L, Monocytes (%) (Auto) 7.6, Eosinophils (%) (Auto) 0.1, Basophils (%) (Auto) 0.2, Sodium Level 149H, Potassium Level 3.1L, Chloride Level 119H, Carbon Dioxide Level 17L, Anion Gap 13, Blood Urea Nitrogen 80H, Creatinine 2.2H, Estimat Glomerular Filtration Rate 36.1, Glucose Level 141H, Hemoglobin A1c 5.5, Uric Acid 12.7H, Calcium Level 8.5, Phosphorus Level 3.2, Magnesium Level 2.1, Iron Level 13L, Total Iron Binding Capacity 111L , Percent Iron Saturation 12L, Unsaturated Iron Binding 98L, Ferritin 1236H, Total Bilirubin 0.7, Gamma Glutamyl Transpeptidase 20, Aspartate Amino Transf ( AST/SGOT) 17, Alanine Aminotransferase (ALT/SGPT) 9L, Alkaline Phosphatase 75, Troponin I 0.201H, Pro-B-Type Natriuretic Peptide 3831H, Total Protein 7.6, Albumin 1.9L, Globulin 5.7, Albumin/Globulin Ratio 0.3L, Triglycerides Level 68 , Cholesterol Level 88, LDL Cholesterol 47, HDL Cholesterol 30L, Cholesterol/ HDL Ratio 2.9L, Lipase 150, Vitamin B12 Level 504, Folate 4.4L, Thyroid Stimulating Hormone (TSH) 0.525, Cortisol AM Sample [Pending] Current Medications Medications (Trade) Dose Ordered Sig/Jennifer Route PRN Reason Start Time Stop Time Status Last Admin Dose Admin Acetaminophen (Tylenol) 500 mg Q4H PRN ORAL Moderate Pain (Pain Scale 4-6) 08/10/18 16:30 09/09/18 16:29 Aspirin (Ecotrin) 81 mg DAILY ORAL 08/11/18 09:00 09/10/18 08:59 Atorvastatin Calcium (Lipitor) 10 mg BEDTIME ORAL 08/11/18 21:00 09/09/18 20:59 Clopidogrel Bisulfate (Plavix) 75 mg DAILY ORAL 08/11/18 09:00 09/10/18 08:59 Dextrose (Dextrose 50%) 25 ml Q30M PRN IV Hypoglycemia 08/10/18 16:30 09/09/18 16:29 Dextrose (Dextrose 50%) 50 ml Q30M PRN IV Hypoglycemia 08/10/18 16:30 09/09/18 16:29 Dextrose/Sodium Chloride 1,000 ml @ 100 mls/hr Q10H IV 08/11/18 17:08 09/09/18 17:07 Folic Acid (Folate) 2 mg DAILY ORAL 08/11/18 17:15 09/10/18 17:14 UNV Insulin Aspart (NovoLOG) BEFORE MEALS AND HS SUBQ 08/10/18 16:30 09/09/18 16:29 08/11/18 13:53 Megestrol Acetate (Megace) 40 mg BID ORAL 08/10/18 18:00 08/15/18 17:59 08/10/18 17:24 Pantoprazole (Protonix) 40 mg DAILY IVP 08/11/18 17:00 09/10/18 16:59 UNV Tramadol HCl (Ultram) 50 mg Q6H PRN ORAL severe pain 08/10/18 16:30 08/17/18 16:29 Jaylin Dickson MD Aug 11, 2018 17:04
--- NOTE | 2018-08-11 17:05 | Nephrology Progress Note ---
Assessment/Plan Problem List: (1) ARF (acute renal failure) (2) UTI (urinary tract infection) (3) FTT (failure to thrive) in adult (4) Anemia, unspecified (5) Severe dehydration (6) Proteinuria Assessment Acute Renal Failure Likely Underlying CKD Dehydration FTT , HypoAlbuminemia UTI Anemia DM , ? Nephropathy CAD Plan Reocephin IV fluids Anemia jorge Monitor I&O and renal parameters folic acid Per orders Subjective ROS Limited/Unobtainable: No Constitutional: Reports: malaise Objective Objective Last 24 Hour Vital Signs Date Time Temp Pulse Resp B/P (MAP) Pulse Ox O2 Delivery O2 Flow Rate FiO2 08/11/18 11:34 98.0 91 18 94/49 (64) 98 08/11/18 04:00 98.5 101 17 145/78 (100) 98 08/11/18 00:00 98.5 110 15 134/73 (93) 98 08/10/18 20:00 98.0 111 16 157/72 (100) 96 Intake and Output 08/10/18 08/11/18 19:00 07:00 Intake Total 150 ml 1500 ml Output Total 900 ml Balance 150 ml 600 ml Intake IV Total 150 ml 1500 ml Output Urine Total 900 ml Laboratory Tests 08/11/18 05:45: White Blood Count 10.2, Red Blood Count 3.53L, Hemoglobin 9.7L, Hematocrit 30.5L , Mean Corpuscular Volume 87, Mean Corpuscular Hemoglobin 27.4, Mean Corpuscular Hemoglobin Concent 31.7L, Red Cell Distribution Width 15.7H, Platelet Count 316, Mean Platelet Volume 6.1L, Neutrophils (%) (Auto) 77.5H, Lymphocytes (%) (Auto) 14.5L, Monocytes (%) (Auto) 7.6, Eosinophils (%) (Auto) 0.1, Basophils (%) (Auto) 0.2, Sodium Level 149H, Potassium Level 3.1L, Chloride Level 119H, Carbon Dioxide Level 17L, Anion Gap 13, Blood Urea Nitrogen 80H, Creatinine 2.2H, Estimat Glomerular Filtration Rate 36.1, Glucose Level 141H, Hemoglobin A1c 5.5, Uric Acid 12.7H, Calcium Level 8.5, Phosphorus Level 3.2, Magnesium Level 2.1, Iron Level 13L, Total Iron Binding Capacity 111L , Percent Iron Saturation 12L, Unsaturated Iron Binding 98L, Ferritin 1236H, Total Bilirubin 0.7, Gamma Glutamyl Transpeptidase 20, Aspartate Amino Transf ( AST/SGOT) 17, Alanine Aminotransferase (ALT/SGPT) 9L, Alkaline Phosphatase 75, Troponin I 0.201H, Pro-B-Type Natriuretic Peptide 3831H, Total Protein 7.6, Albumin 1.9L, Globulin 5.7, Albumin/Globulin Ratio 0.3L, Triglycerides Level 68 , Cholesterol Level 88, LDL Cholesterol 47, HDL Cholesterol 30L, Cholesterol/ HDL Ratio 2.9L, Lipase 150, Vitamin B12 Level 504, Folate 4.4L, Thyroid Stimulating Hormone (TSH) 0.525, Cortisol AM Sample [Pending] Height (Feet): 4 Height (Inches): 0.00 Weight (Pounds): 123 General Appearance: no apparent distress Cardiovascular: tachycardia Respiratory/Chest: decreased breath sounds Abdomen: soft Objective no change Gennaro Cagle MD Aug 11, 2018 17:04
[2018-08-11] MEDS ORDERED: Tubing IV Secondary IV ONE (17:10)
--- NOTE | 2018-08-11 17:30 | Consultation ---
DATE OF CONSULTATION: 08/11/2018 INFECTIOUS DISEASES CONSULTATION CONSULTING PHYSICIAN: Robert Massey M.D. REQUESTING PHYSICIAN: Yannick Marshall M.D. REASON FOR CONSULTATION: Urinary tract infection, possible sepsis with leukocytosis. Recommendation for antimicrobial treatment. HISTORY OF PRESENT ILLNESS: The patient is a 67-year-old male with past medical history of DVT of the lower extremity, bilateral lower extremity [id number] amputation due to infection, history of sepsis, diabetes type 2, hypertension, CVA, dysphagia, advanced dementia was sent to [facility] emergency room for weakness, poor oral intake, and dehydration. The patient was found to have worsening renal failure, significant leukocytosis, concerning for sepsis. Urinalysis showed evidence of infection so he was started on ceftriaxone empirically and Infectious Diseases consultation was requested for antibiotics treatment and further management. As of note, the patient is poor historian, cannot provide any history. History was mainly obtained from the medical record. REVIEW OF SYSTEMS: Unable to obtain. The patient is poor historian. PAST MEDICAL HISTORY: Significant for DVT of the lower extremity and bilateral lower extremity severe infection status post [id number] amputation, sepsis, diabetes, hypertension, CVA twice, dysphagia, advanced dementia. SOCIAL HISTORY: [place]. Former smoker, alcohol abuser, and heroin abuser but not any more. ALLERGIES: No known drug allergy. FAMILY HISTORY: Unable to obtain. MEDICATIONS: He is on ceftriaxone. For the rest of his medications, please refer to MAR. LABORATORY DATA: White count 18.5, hemoglobin 11.8, platelet count of 434. BUN of 80 and creatinine of 2.2. Urinalysis showed +3 leukocyte esterase, wbc's too numerous to count, and many bacteria. Microbiology, urine culture is growing more than 100,000 colony gram-negative rods. IMAGING: Chest x-ray showed linear atelectases at the left lung base and left diaphragmatic elevation. PHYSICAL EXAMINATION: VITAL SIGNS: Temperature 98, pulse 91, respirations 18, blood pressure 94/49. GENERAL: Elderly male, lying in bed, alert, unresponsive, does not follow commands, not in acute distress. HEENT: Normocephalic and atraumatic. Pupils are reactive to light. Pale sclerae. Unable to assess oral mucosa. NECK: Supple. No lymphadenopathy. CARDIOVASCULAR: Regular rate and rhythm. No murmur or gallop. LUNGS: Clear bilaterally. Diminished breathing sounds at the bases. ABDOMEN: Soft, nontender, and nondistended. Normal bowel sounds. No hepatosplenomegaly or ascites. EXTREMITIES: No edema or cyanosis. SKIN: No rash or hives. MUSCULOSKELETAL: He has muscle atrophy in the lower extremity. No joint swelling. SKIN: No rash. No hives. No ulceration. ASSESSMENT AND RECOMMENDATION: 1. Sepsis with leukocytosis, source suspect urine tract infection. We will send blood culture x2 and start the patient on cefepime empiric coverage, pending culture. 2. Urinary tract infection. We will start cefepime empiric coverage, pending urine culture. 3. Failure to thrive due to dysphagia and CVA, may benefit from PEG tube placement. Consult dietitian and GI. 4. Severe dehydration. Continue IV fluids. Replace electrolytes as needed. 5. Acute renal failure due to dehydration and poor oral intake. Continue IV fluid for hydration. 6. Monitor urine output and electrolytes. Thank you for the consult. ID will continue to follow. Please feel free to call with any question. Robert Massey M.D. DR: Jayla JOB#: [id number] CC:
[2018-08-11] MEDS ORDERED: Albumin Human 5% 250ml IV SCH (18:00)
--- NOTE | 2018-08-11 19:30 | NUR ---
HAND-OFF: Report given to SARAH Wagner.
[2018-08-11 20:16] VITALS: BP 117/63
--- NOTE | 2018-08-11 20:30 | NUR ---
NURSE NOTES: PATIENT IN BED, AWAKE, NONVERBAL. IV IN PLACE, PATENT. NO S/S DISTRESS OR PAIN PER FLACC SCALE NOTED. BED IN LOWEST POSITION, CALL LIGHT WITHIN REACH. WILL CONTINUE TO MONITOR.
--- NOTE | 2018-08-11 21:30 | NUR ---
NURSE NOTES: PATIENT REFUSED 2100 LIPITOR, WHEN NURSE OFFERED THE MEDICATION, PATIENT SHOOK HIS HEAD AND WOULD NOT OPEN HIS MOUTH.
[2018-08-12 00:22] VITALS: BP 106/60
[2018-08-12] MEDS: D5 1/2NS 1,000 ML IV SCH (03:08)
[2018-08-12 04:35] VITALS: BP 142/62
[2018-08-12] MEDS: NovoLOG Insulin Flexpen SUBQ SCH ×4 (05:27→21:00)
--- NOTE | 2018-08-12 06:00 | NUR ---
NURSE NOTES: PATIENT IV ACCESS ON LEFT UPPER ARM INFILTRATED AND PUFFY, IV REMOVED. CHARGE NURSE AND ANOTHER RN TRIED TO GET NEW IV ACCESS BUT WAS UNSUCCESSFUL. LEFT ARM ELEVATED AND ICE PACK PUT ON. WILL ENDORSE TO AM NURSE.
[2018-08-12 06:38] LABS: BASOPHILS % (AUTO) 0.3 % (0.0-2.0); EOSINOPHILS % (AUTO) 0.4 % (0.0-3.0); HEMATOCRIT 30.1 % (42.0-52.0); HEMOGLOBIN 9.4 G/DL (14.2-18.0); LYMPHOCYTES % (AUTO) 27.4 % (20.0-45.0); MEAN CORPUSCULAR VOLUME 88 FL (80-99); MONOCYTES % (AUTO) 6.7 % (1.0-10.0); NEUTROPHILS % (AUTO) 65.2 % (45.0-75.0); PLATELET COUNT 279 K/UL (150-450); RED BLOOD COUNT 3.41 M/UL (4.70-6.10); RED CELL DISTRIBUTION WIDTH 15.7 % (11.6-14.8); WHITE BLOOD COUNT 9.4 K/UL (4.8-10.8)
[2018-08-12 07:02] LABS: ALANINE AMINOTRANSFERASE 12 U/L (12-78); ALBUMIN 2.5 G/DL (3.4-5.0); ALBUMIN/GLOBULIN RATIO 0.5 (1.0-2.7); ALKALINE PHOSPHATASE 68 U/L (46-116); ANION GAP 14 mmol/L (5-15); ASPARTATE AMINO TRANSFERASE 25 U/L (15-37); BLOOD UREA NITROGEN 60 mg/dL (7-18); CALCIUM 9.3 MG/DL (8.5-10.1); CARBON DIOXIDE 19 MMOL/L (21-32); CHLORIDE 121 MMOL/L (98-107); PHOSPHORUS 2.6 MG/DL (2.5-4.9); POTASSIUM 3.8 MMOL/L (3.5-5.1); SODIUM 154 MMOL/L (136-145)
--- NOTE | 2018-08-12 07:27 | NUR ---
HAND-OFF: Report given to MONROE BOSCH RN. ENDORSED TO AM NURSE REGARDING PATIENT HAVING NO IV SITE.
--- NOTE | 2018-08-12 07:57 | NUR ---
NURSE NOTES: received patient in bed, no sign of pain or discomfort. No IV access on patient. Call light within easy reach, siderails up x3, bed locked at htee lowest position possible. Will continue to monitor patient and follow up with the POC.
[2018-08-12 08:00] VITALS: BP 139/78
[2018-08-12] MEDS: Aspirin EC 81mg tab ORAL SCH (09:00)
[2018-08-12] MEDS: Pantoprazole Inj IVP SCH (09:00)
--- NOTE | 2018-08-12 09:34 | NUR ---
ST NOTE: BEDSIDE SWALLOW EVAL/CONSULT RECEIVED BEDSIDE SWALLOW EVAL ORDER CHART REVIEWED PRIOR THE EVALUATION COMPLETED SWALLOW CONSULT. PT IS A 67-YEAR-OLD MALE WHO WAS ADMITTED DUE TO FAILURE TO THRIVE AND UTI. DYSPHAGIA RISK FACTORS: CVAs X 2, H/O DYSPHAGIA, DMII, ADVANCED DEMENTIA, UTI, RENAL FAILURE, H/O ALCOHOLIC ABUSE, HEROIN ABUSE AND FORMER SMOKER, BILATERAL LOWER EXTREMITY AMPUTATION. PER CXR: Linear atelectasis at the left lung base and left diaphragmatic elevation. PLOF: PT RESIDES AT SNF. PER CHART, PT IS ON CCHO REGULAR WITH THIN LIQUIDS DIET. PT IS FULL CODE. PER NOTE FROM SENIOR CARE, OKAY WITH TUBE FEEDING IF NEEDED(PER POA) NEEDS TO CONTACT THE SOCIAL SERVICE. CURRENT STATUS: PT SEEN AT BEDSIDE IN AM. ALERT, NONVERBAL, DID NOT FOLLOW DIRECTIONS. ATTEMPTED TO GIVE PO TRIALS. PT REFUSED BY PUSHING IT AWAY. 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 PT IS AT HIGH RISK FOR MALNUTRITION AND DEHYDRATION COMPOUNDED OF SIGNIFICANT COGNITIVE DEFICITS. RECOMMENDATIONS: 1. CONTINUE NPO 2. PT PROBABLY IS A GOOD CANDIDATE FOR LONG-TERM NONORAL FEEDING MEANS TO MEET NUTRITION AND HYDRATION NEEDS. 3. ORAL CARE IF ABLE. 4. SKILLED ST SERVICE X 2 TIMES RE POSSIBLE PO TRIALS. D/W RNMONROE AND INFORMED MD, DR. READ.
--- NOTE | 2018-08-12 09:36 | NUR ---
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 UTI VS: BP 142/62, P 107, T 98.8, RR 98, SpO2 95 RBC 3.41, Hgb 9.4, Hct 30.1, Na 154, BUN 60, CR 2.0 IS:INDIA-HEX 2% 1 APPLIC CEFTRIAXONE 55ml IVPB MED/SURG STATUS
--- NOTE | 2018-08-12 09:43 | General Progress Note ---
Assessment/Plan Problem List: (1) Iron deficiency anemia ICD Codes: D50.9 - Iron deficiency anemia, unspecified SNOMED: 72353352 (2) PVD (peripheral vascular disease) ICD Codes: I73.9 - Peripheral vascular disease, unspecified SNOMED: 731899682 (3) DM (4) CVA (cerebral vascular accident) ICD Codes: I63.9 - Cerebral infarction, unspecified SNOMED: 510244986 (5) S/P AKA (above knee amputation) bilateral ICD Codes: Z89.611 - Acquired absence of right leg above knee; Z89.612 - Acquired absence of left leg above knee SNOMED: 19897754, 031396433 (6) FTT (failure to thrive) in adult ICD Codes: R62.7 - Adult failure to thrive SNOMED: 577474829 (7) Anemia, unspecified ICD Codes: D64.9 - Anemia, unspecified SNOMED: 992698889 Qualifiers: Qualified Codes: D64.9 - Anemia, unspecified Assessment/Plan failed swallow evaluation pending consent for PEG iv iron fu labs Subjective ROS Limited/Unobtainable: No Allergies: Coded Allergies: No Known Allergies (Unverified , 08/10/18) Objective Last 24 Hour Vital Signs Date Time Temp Pulse Resp B/P (MAP) Pulse Ox O2 Delivery O2 Flow Rate FiO2 08/12/18 08:00 98.6 81 20 139/78 (98) 97 08/12/18 04:35 98.3 93 18 142/62 (88) 98 08/12/18 00:22 97.7 93 18 106/60 (75) 97 08/11/18 21:00 Room Air 08/11/18 20:16 97.9 83 18 117/63 (81) 99 08/11/18 16:00 97.6 96 19 116/60 (78) 99 08/11/18 11:34 98.0 91 18 94/49 (64) 98 Intake and Output 08/11/18 08/12/18 19:00 07:00 Intake Total 800 ml Output Total 850 ml Balance -850 ml 800 ml Intake IV Total 800 ml Output Urine Total 850 ml Laboratory Tests 08/12/18 05:50: White Blood Count 9.4, Red Blood Count 3.41L, Hemoglobin 9.4L, Hematocrit 30.1L , Mean Corpuscular Volume 88, Mean Corpuscular Hemoglobin 27.5, Mean Corpuscular Hemoglobin Concent 31.2L, Red Cell Distribution Width 15.7H, Platelet Count 279, Mean Platelet Volume 5.9L, Neutrophils (%) (Auto) 65.2, Lymphocytes (%) (Auto) 27.4, Monocytes (%) (Auto) 6.7, Eosinophils (%) (Auto) 0.4, Basophils (%) (Auto) 0.3, Sodium Level 154H, Potassium Level 3.8, Chloride Level 121H, Carbon Dioxide Level 19L, Anion Gap 14, Blood Urea Nitrogen 60H, Creatinine 2.0H, Estimat Glomerular Filtration Rate 40.4, Glucose Level 101, Uric Acid 11.4H, Calcium Level 9.3, Phosphorus Level 2.6, Magnesium Level 1.9, Total Bilirubin 1.0, Aspartate Amino Transf (AST/SGOT) 25, Alanine Aminotransferase (ALT/SGPT) 12, Alkaline Phosphatase 68, Total Protein 8.0, Albumin 2.5L, Globulin 5.5, Albumin/Globulin Ratio 0.5L Height (Feet): 4 Height (Inches): 0.00 Weight (Pounds): 123 General Appearance: confused EENT: normal ENT inspection Neck: supple Cardiovascular: normal rate Respiratory/Chest: decreased breath sounds Abdomen: normal bowel sounds, non tender, soft Extremities: non-tender Gallo Loya MD Aug 12, 2018 09:42
[2018-08-12 12:00] VITALS: BP 130/80
--- NOTE | 2018-08-12 12:00 | NUR ---
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 Patient has no IV access, and refused tyo let nurse start another IV access. Dr. Massey communicated to nurse that it's imperative that pt gets an IV access.
--- NOTE | 2018-08-12 12:43 | NUR ---
Social Work This SW received a consult to assist with decision making for patient (will need a new POLST). This Sw met with patient who is confused, non-verbal. This SW spoke with sister, Rere ([phone]) who requested full treatment, while stating she is not the primary decision maker. Cydney lukasz' is the decisions maker: Margaux ([phone] unable to leave a message, home home: [phone] gives busy signal with several attempts, [phone] left message). Awaiting return call from cydney lal at this time. This SW spoke with [facility] [address], who will fax an updated POLST.
--- NOTE | 2018-08-12 15:35 | NUR ---
*-* INSURANCE *--* ALL CLINICALS HAVE BEEN FAXED TO: JAZMIN RAHMAN: [place] P- [phone] X [phone] F- [phone]
[2018-08-12] MEDS ORDERED: Haloperidol 5mg/ml Inj IM PRN (16:00)
--- NOTE | 2018-08-12 16:02 | Nephrology Progress Note ---
Assessment/Plan Problem List: (1) ARF (acute renal failure) (2) UTI (urinary tract infection) (3) FTT (failure to thrive) in adult (4) Anemia, unspecified (5) Severe dehydration (6) Proteinuria Assessment Acute Renal Failure Likely Underlying CKD Dehydration FTT , HypoAlbuminemia UTI Anemia DM , ? Nephropathy CAD Plan uncooperative PRN Haldol PO Seroquel consider PEG Reocephin IV fluids- not been getting it due to being uncooperative Anemia jorge Monitor I&O and renal parameters folic acid Per orders Subjective ROS Limited/Unobtainable: No Constitutional: Reports: malaise, other - uncoaporative Objective Objective Last 24 Hour Vital Signs Date Time Temp Pulse Resp B/P (MAP) Pulse Ox O2 Delivery O2 Flow Rate FiO2 08/12/18 12:00 98.3 79 19 130/80 (97) 98 08/12/18 09:00 Room Air 08/12/18 08:00 98.6 81 20 139/78 (98) 97 08/12/18 04:35 98.3 93 18 142/62 (88) 98 08/12/18 00:22 97.7 93 18 106/60 (75) 97 08/11/18 21:00 Room Air 08/11/18 20:16 97.9 83 18 117/63 (81) 99 Intake and Output 08/11/18 08/12/18 19:00 07:00 Intake Total 800 ml Output Total 850 ml Balance -850 ml 800 ml Intake IV Total 800 ml Output Urine Total 850 ml Laboratory Tests 08/12/18 05:50: White Blood Count 9.4, Red Blood Count 3.41L, Hemoglobin 9.4L, Hematocrit 30.1L , Mean Corpuscular Volume 88, Mean Corpuscular Hemoglobin 27.5, Mean Corpuscular Hemoglobin Concent 31.2L, Red Cell Distribution Width 15.7H, Platelet Count 279, Mean Platelet Volume 5.9L, Neutrophils (%) (Auto) 65.2, Lymphocytes (%) (Auto) 27.4, Monocytes (%) (Auto) 6.7, Eosinophils (%) (Auto) 0.4, Basophils (%) (Auto) 0.3, Sodium Level 154H, Potassium Level 3.8, Chloride Level 121H, Carbon Dioxide Level 19L, Anion Gap 14, Blood Urea Nitrogen 60H, Creatinine 2.0H, Estimat Glomerular Filtration Rate 40.4, Glucose Level 101, Uric Acid 11.4H, Calcium Level 9.3, Phosphorus Level 2.6, Magnesium Level 1.9, Total Bilirubin 1.0, Aspartate Amino Transf (AST/SGOT) 25, Alanine Aminotransferase (ALT/SGPT) 12, Alkaline Phosphatase 68, Total Protein 8.0, Albumin 2.5L, Globulin 5.5, Albumin/Globulin Ratio 0.5L Height (Feet): 4 Height (Inches): 0.00 Weight (Pounds): 123 General Appearance: agitated Cardiovascular: normal rate Respiratory/Chest: decreased breath sounds Abdomen: soft Objective no change Gennaro Cagle MD Aug 12, 2018 16:02
[2018-08-12] MEDS ORDERED: Heparin1,000 units/500ml Premix(Conc:2 units/ml) IV PRN (17:00)
[2018-08-12] MEDS ORDERED: Lidocaine 1% Plain 30 ml INJ PRN (17:00)
--- NOTE | 2018-08-12 17:46 | Internal Med Progress Note ---
Subjective Physician Name Yannick Marshall Attending Physician Yannick Marshall MD Current Medications Medications (Trade) Dose Ordered Sig/Jennifer Route PRN Reason Start Time Stop Time Status Last Admin Dose Admin Acetaminophen (Tylenol) 500 mg Q4H PRN ORAL Moderate Pain (Pain Scale 4-6) 08/10/18 16:30 09/09/18 16:29 Aspirin (Ecotrin) 81 mg DAILY ORAL 08/11/18 09:00 09/10/18 08:59 Atorvastatin Calcium (Lipitor) 10 mg BEDTIME ORAL 08/11/18 21:00 09/09/18 20:59 Chlorhexidine Gluconate (Rani-Hex 2%) 1 applic DAILY@2000 TOPIC 08/12/18 20:00 09/11/18 19:59 Clopidogrel Bisulfate (Plavix) 75 mg DAILY ORAL 08/11/18 09:00 09/10/18 08:59 Dextrose 1,000 ml @ 100 mls/hr Q10H IV 08/12/18 10:30 09/11/18 10:29 Dextrose (Dextrose 50%) 25 ml Q30M PRN IV Hypoglycemia 08/10/18 16:30 09/09/18 16:29 Dextrose (Dextrose 50%) 50 ml Q30M PRN IV Hypoglycemia 08/10/18 16:30 09/09/18 16:29 Folic Acid (Folate) 2 mg DAILY ORAL 08/11/18 17:15 09/10/18 17:14 Haloperidol Lactate (Haldol) 2 mg Q4H PRN IM Agitation 08/12/18 16:00 09/11/18 15:59 Heparin Sodium/ Sodium Chloride (Heparin 1000 units/500ml Premix) 1,000 unit ONCE PRN IV PICC PLACEMENT 08/12/18 17:00 08/13/18 23:59 Insulin Aspart (NovoLOG) BEFORE MEALS AND HS SUBQ 08/10/18 16:30 09/09/18 16:29 08/12/18 05:27 Lidocaine HCl (Xylocaine 1% 30ml) 30 ml ONCE PRN INJ picc placement 08/12/18 17:00 08/13/18 23:59 Megestrol Acetate (Megace) 40 mg BID ORAL 08/10/18 18:00 08/15/18 17:59 08/10/18 17:24 Pantoprazole (Protonix) 40 mg DAILY IVP 08/11/18 17:00 09/10/18 16:59 08/11/18 19:03 Quetiapine Fumarate (SEROquel) 12.5 mg BID ORAL 08/12/18 16:00 09/11/18 15:59 Tramadol HCl (Ultram) 50 mg Q6H PRN ORAL severe pain 08/10/18 16:30 08/17/18 16:29 Allergies: Coded Allergies: No Known Allergies (Unverified , 08/10/18) Subjective awake, responsive, not verbal. BUN/CR: 60/2.2.0, refusing IVF, Objective Last Vital Signs Date Time Temp Pulse Resp B/P (MAP) Pulse Ox O2 Delivery O2 Flow Rate FiO2 08/12/18 12:00 98.3 79 19 130/80 (97) 98 08/12/18 09:00 Room Air 08/10/18 04:01 98 Laboratory Tests Test 08/12/18 05:50 White Blood Count 9.4 K/UL (4.8-10.8) Red Blood Count 3.41 M/UL (4.70-6.10) L Hemoglobin 9.4 G/DL (14.2-18.0) L Hematocrit 30.1 % (42.0-52.0) L Mean Corpuscular Volume 88 FL (80-99) Mean Corpuscular Hemoglobin 27.5 PG (27.0-31.0) Mean Corpuscular Hemoglobin Concent 31.2 G/DL (32.0-36.0) L Red Cell Distribution Width 15.7 % (11.6-14.8) H Platelet Count 279 K/UL (150-450) Mean Platelet Volume 5.9 FL (6.5-10.1) L Neutrophils (%) (Auto) 65.2 % (45.0-75.0) Lymphocytes (%) (Auto) 27.4 % (20.0-45.0) Monocytes (%) (Auto) 6.7 % (1.0-10.0) Eosinophils (%) (Auto) 0.4 % (0.0-3.0) Basophils (%) (Auto) 0.3 % (0.0-2.0) Sodium Level 154 MMOL/L (136-145) H Potassium Level 3.8 MMOL/L (3.5-5.1) Chloride Level 121 MMOL/L (98-107) H Carbon Dioxide Level 19 MMOL/L (21-32) L Anion Gap 14 mmol/L (5-15) Blood Urea Nitrogen 60 mg/dL (7-18) H Creatinine 2.0 MG/DL (0.55-1.30) H Estimat Glomerular Filtration Rate 40.4 mL/min (>60) Glucose Level 101 MG/DL (74-106) Uric Acid 11.4 MG/DL (2.6-7.2) H Calcium Level 9.3 MG/DL (8.5-10.1) Phosphorus Level 2.6 MG/DL (2.5-4.9) Magnesium Level 1.9 MG/DL (1.8-2.4) Total Bilirubin 1.0 MG/DL (0.2-1.0) Aspartate Amino Transf (AST/SGOT) 25 U/L (15-37) Alanine Aminotransferase (ALT/SGPT) 12 U/L (12-78) Alkaline Phosphatase 68 U/L (46-116) Total Protein 8.0 G/DL (6.4-8.2) Albumin 2.5 G/DL (3.4-5.0) L Globulin 5.5 g/dL Albumin/Globulin Ratio 0.5 (1.0-2.7) L Microbiology Date/Time Source Procedure Growth Status 08/10/18 05:01 Urine,Clean Catch Urine Culture - Final Proteus Mirabilis Complete 08/10/18 07:12 Rectum VRE Culture - Final Enterococcus Faecalis - Vre Complete Intake and Output 08/11/18 08/12/18 19:00 07:00 Intake Total 800 ml Output Total 850 ml Balance -850 ml 800 ml Intake IV Total 800 ml Output Urine Total 850 ml Objective GENERAL: The patient is awake and responsive, but not verbal. HEAD AND NECK: Pupils equal and reactive to light. Extraocular movements intact. NECK: Supple. No JVD. LUNGS: air entry, poor inspiratory effort. No wheeze or rhonchi. HEART: S1, S2. Distant heart sounds. No murmur or gallops. ABDOMEN: Soft, nondistended, nontender. Positive bowel sounds. : Pelayo cath EXTREMITIES: No cyanosis or clubbing. The patient has bilateral AKA, contracted. NEUROLOGIC: Cranial nerves II through XII are grossly intact. The patient is moving all the extremities spontaneously. Gait was not assessed due to the patient's status. Assessment/Plan Assessment/Plan ASSESSMENT: 1. Acute kidney injury on chronic renal insufficiency. 2. Failure to thrive. 3. Severe dehydration. 4. Decreased oral intake. 5. Diabetes type 2. 6. Status post bilateral lower extremity AKA. 7. Hypertension, presently normotensive. 8. Advanced dementia. 9. Prior history of stroke x2. 10. Ex-smoker. 11. History of alcohol abuse. 12. History of heroin abuse. 13. Severe protein-calorie malnutrition. 14. CNR UTI. PLAN: Broad-spectrum antibiotic: Rocephin. Monitor cultures and laboratory. IV hydration Accu-Chek with sliding scale. Code status: Full Code DVT prophylaxis: heparin subcutaneous. Discussed with Dr. Dickson from Pulmonary/Critical Care and Dr. Cagle from Nephrology. Consider GI consult for PEG placement after consent obtain. Yannick Marshall MD Aug 12, 2018 17:46
--- NOTE | 2018-08-12 19:09 | Infectious Diseases Prog Note ---
Assessment/Plan Problems: (1) Sepsis Assessment & Plan: with leukocytosis , source most likely his UTI due to proteus mirabilis , will start ceftriaxone and treat him for 7 days , await blood culture x2. (2) UTI (urinary tract infection) Assessment & Plan: will start ceftriaxone and treat him for 7 days (3) FTT (failure to thrive) in adult Assessment & Plan: may benefit from PEG tube , dietitian consult (4) Severe dehydration Assessment & Plan: continue ivf (5) ARF (acute renal failure) Assessment & Plan: continue IVF for hydration (6) Anemia, unspecified Subjective ROS Limited/Unobtainable: Yes Allergies: Coded Allergies: No Known Allergies (Unverified , 08/10/18) Subjective he was lying in bed, alert, not responsive, afebrile, not verbal Objective Vital Signs Last 24 Hour Vital Signs Date Time Temp Pulse Resp B/P (MAP) Pulse Ox O2 Delivery O2 Flow Rate FiO2 08/12/18 12:00 98.3 79 19 130/80 (97) 98 08/12/18 09:00 Room Air 08/12/18 08:00 98.6 81 20 139/78 (98) 97 08/12/18 04:35 98.3 93 18 142/62 (88) 98 08/12/18 00:22 97.7 93 18 106/60 (75) 97 08/11/18 21:00 Room Air 08/11/18 20:16 97.9 83 18 117/63 (81) 99 Height (Feet): 4 Height (Inches): 0.00 Weight (Pounds): 123 General Appearance: WD/WN, no acute distress HEENT: normocephalic, atraumatic, anicteric, mucous membranes moist, PERRL Respiratory/Chest: chest wall non-tender, lungs clear, normal breath sounds, no respiratory distress, no accessory muscle use Cardiovascular: normal peripheral pulses, normal rate, regular rhythm, no gallop/murmur, no JVD Abdomen: normal bowel sounds, soft, non tender, no organomegaly, non distended , no mass, no scars Genitourinary: normal external genitalia Extremities: no cyanosis, no clubbing Skin: no rash, no lesions, no ulcers Neurologic/Psychiatric: alert, unresponsiveness Lymphatic: no neck adenopathy, no groin adenopathy Musculoskeletal: normal muscle bulk, no effusion Microbiology Date/Time Source Procedure Growth Status 08/10/18 05:01 Urine,Clean Catch Urine Culture - Final Proteus Mirabilis Complete 08/10/18 07:12 Rectum VRE Culture - Final Enterococcus Faecalis - Vre Complete Laboratory Tests Test 08/12/18 05:50 White Blood Count 9.4 K/UL (4.8-10.8) Red Blood Count 3.41 M/UL (4.70-6.10) L Hemoglobin 9.4 G/DL (14.2-18.0) L Hematocrit 30.1 % (42.0-52.0) L Mean Corpuscular Volume 88 FL (80-99) Mean Corpuscular Hemoglobin 27.5 PG (27.0-31.0) Mean Corpuscular Hemoglobin Concent 31.2 G/DL (32.0-36.0) L Red Cell Distribution Width 15.7 % (11.6-14.8) H Platelet Count 279 K/UL (150-450) Mean Platelet Volume 5.9 FL (6.5-10.1) L Neutrophils (%) (Auto) 65.2 % (45.0-75.0) Lymphocytes (%) (Auto) 27.4 % (20.0-45.0) Monocytes (%) (Auto) 6.7 % (1.0-10.0) Eosinophils (%) (Auto) 0.4 % (0.0-3.0) Basophils (%) (Auto) 0.3 % (0.0-2.0) Sodium Level 154 MMOL/L (136-145) H Potassium Level 3.8 MMOL/L (3.5-5.1) Chloride Level 121 MMOL/L (98-107) H Carbon Dioxide Level 19 MMOL/L (21-32) L Anion Gap 14 mmol/L (5-15) Blood Urea Nitrogen 60 mg/dL (7-18) H Creatinine 2.0 MG/DL (0.55-1.30) H Estimat Glomerular Filtration Rate 40.4 mL/min (>60) Glucose Level 101 MG/DL (74-106) Uric Acid 11.4 MG/DL (2.6-7.2) H Calcium Level 9.3 MG/DL (8.5-10.1) Phosphorus Level 2.6 MG/DL (2.5-4.9) Magnesium Level 1.9 MG/DL (1.8-2.4) Total Bilirubin 1.0 MG/DL (0.2-1.0) Aspartate Amino Transf (AST/SGOT) 25 U/L (15-37) Alanine Aminotransferase (ALT/SGPT) 12 U/L (12-78) Alkaline Phosphatase 68 U/L (46-116) Total Protein 8.0 G/DL (6.4-8.2) Albumin 2.5 G/DL (3.4-5.0) L Globulin 5.5 g/dL Albumin/Globulin Ratio 0.5 (1.0-2.7) L Current Medications Medications (Trade) Dose Ordered Sig/Jennifer Route PRN Reason Start Time Stop Time Status Last Admin Dose Admin Acetaminophen (Tylenol) 500 mg Q4H PRN ORAL Moderate Pain (Pain Scale 4-6) 08/10/18 16:30 09/09/18 16:29 Aspirin (Ecotrin) 81 mg DAILY ORAL 08/11/18 09:00 09/10/18 08:59 Atorvastatin Calcium (Lipitor) 10 mg BEDTIME ORAL 08/11/18 21:00 09/09/18 20:59 Chlorhexidine Gluconate (Rani-Hex 2%) 1 applic DAILY@2000 TOPIC 08/12/18 20:00 09/11/18 19:59 Clopidogrel Bisulfate (Plavix) 75 mg DAILY ORAL 08/11/18 09:00 09/10/18 08:59 Dextrose 1,000 ml @ 100 mls/hr Q10H IV 08/12/18 10:30 09/11/18 10:29 Dextrose (Dextrose 50%) 25 ml Q30M PRN IV Hypoglycemia 08/10/18 16:30 09/09/18 16:29 Dextrose (Dextrose 50%) 50 ml Q30M PRN IV Hypoglycemia 08/10/18 16:30 09/09/18 16:29 Folic Acid (Folate) 2 mg DAILY ORAL 08/11/18 17:15 09/10/18 17:14 Haloperidol Lactate (Haldol) 2 mg Q4H PRN IM Agitation 08/12/18 16:00 09/11/18 15:59 Heparin Sodium/ Sodium Chloride (Heparin 1000 units/500ml Premix) 1,000 unit ONCE PRN IV PICC PLACEMENT 08/12/18 17:00 08/13/18 23:59 Insulin Aspart (NovoLOG) BEFORE MEALS AND HS SUBQ 08/10/18 16:30 09/09/18 16:29 08/12/18 05:27 Lidocaine HCl (Xylocaine 1% 30ml) 30 ml ONCE PRN INJ picc placement 08/12/18 17:00 08/13/18 23:59 Megestrol Acetate (Megace) 40 mg BID ORAL 08/10/18 18:00 08/15/18 17:59 08/10/18 17:24 Pantoprazole (Protonix) 40 mg DAILY IVP 08/11/18 17:00 09/10/18 16:59 08/11/18 19:03 Quetiapine Fumarate (SEROquel) 12.5 mg BID ORAL 08/12/18 16:00 09/11/18 15:59 Tramadol HCl (Ultram) 50 mg Q6H PRN ORAL severe pain 08/10/18 16:30 08/17/18 16:29 Robert Massey M.D. Aug 12, 2018 19:09
--- NOTE | 2018-08-12 19:30 | NUR ---
HAND-OFF: Report given to SARAH Winters.
[2018-08-12 20:00] VITALS: BP 101/62
[2018-08-12] MEDS: cefTRIAXone 1 GM in D5W 55 ML IVPB SCH ×2 (20:00→23:10)
--- NOTE | 2018-08-12 20:01 | NUR ---
NURSE NOTES: Patient in bed, awake, confused, nonverbal. Unable to make simple needs known. No s/s of distress noted. Kept clean and comfortable. Respiration is even and unlabored. Skin is warm and dry to touch. NO IV site noted, charge nurse made aware. Abdomen is soft. Renato light is at bedside.Kept clean and comfortable. Will attempt IV insertion. Will continue plan of care.
[2018-08-12] MEDS: Dyna-Hex 2% Top Sol 2oz TOPIC SCH (22:16)
--- NOTE | 2018-08-12 23:30 | NUR ---
NURSE NOTES: Patient in bed. IV site reinserted. Patent, iv fluid continued.
[2018-08-13] VITALS (8 sets, daily range): BP systolic 93–117; BP diastolic 54–75
[2018-08-13] MEDS: NovoLOG Insulin Flexpen SUBQ SCH ×4 (06:27→23:13)
[2018-08-13 06:42] LABS: BASOPHILS % (AUTO) 0.6 % (0.0-2.0); EOSINOPHILS % (AUTO) 0.3 % (0.0-3.0); HEMATOCRIT 35.2 % (42.0-52.0); HEMOGLOBIN 10.8 G/DL (14.2-18.0); LYMPHOCYTES % (AUTO) 30.8 % (20.0-45.0); MEAN CORPUSCULAR VOLUME 89 FL (80-99); MONOCYTES % (AUTO) 5.1 % (1.0-10.0); NEUTROPHILS % (AUTO) 63.2 % (45.0-75.0); PLATELET COUNT 325 K/UL (150-450); RED BLOOD COUNT 3.95 M/UL (4.70-6.10); RED CELL DISTRIBUTION WIDTH 16.4 % (11.6-14.8); WHITE BLOOD COUNT 10.8 K/UL (4.8-10.8)
[2018-08-13 06:50] LABS: INR 1.1 (0.9-1.1)
--- NOTE | 2018-08-13 07:07 | NUR ---
HAND-OFF: Report given to Phoebe Appiah.
[2018-08-13 07:16] LABS: ANION GAP 14 mmol/L (5-15); BLOOD UREA NITROGEN 52 mg/dL (7-18); CALCIUM 9.4 MG/DL (8.5-10.1); CARBON DIOXIDE 18 MMOL/L (21-32); CHLORIDE 121 MMOL/L (98-107); CREATININE 1.9 MG/DL (0.55-1.30); POTASSIUM 3.5 MMOL/L (3.5-5.1); SODIUM 153 MMOL/L (136-145)
[2018-08-13 07:17] LABS: ALANINE AMINOTRANSFERASE 8 U/L (12-78); ALBUMIN 2.5 G/DL (3.4-5.0); ALKALINE PHOSPHATASE 78 U/L (46-116); ASPARTATE AMINO TRANSFERASE 30 U/L (15-37); BILIRUBIN,DIRECT 0.4 MG/DL (0.0-0.3); BILIRUBIN,TOTAL 0.9 MG/DL (0.2-1.0); PHOSPHORUS 3.3 MG/DL (2.5-4.9)
--- NOTE | 2018-08-13 07:40 | NUR ---
NURSE NOTES: Received patient on bed, awake. Non verbal. IV site intact and patent. Bed in low and locked position, call light in reach. No signs of respiratory distres or pain. Room board updated, will continue to monitor.
--- NOTE | 2018-08-13 08:00 | NUR ---
NURSE NOTES: Patient refused vitals. Will attempt again.
[2018-08-13] MEDS: Pantoprazole Inj IVP SCH (08:34)
[2018-08-13] MEDS: Aspirin EC 81mg tab ORAL SCH (08:35)
--- NOTE | 2018-08-13 09:42 | NUR ---
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 UTI . SEVERE DEHYDRATION VS:BP 97/54, P 102, T 98.8, RR 20, SpO2 98 Na 153, BUN 52, CR 1.9 DIRECT BILIRUBIN 0.4, ALT 8, RBC 3.95, Hgb 10.8, Hct 35.2 IS:PATIENT IS REFUSING IV REINSERTION AND MEDICATIONS PEG CONSULT PENDING MED/SURG STATUS
--- NOTE | 2018-08-13 12:00 | NUR ---
NURSE NOTES: Patient refused 1200 vitals.
--- NOTE | 2018-08-13 12:10 | NUR ---
NURSE NOTES: Patient off floor for EGD/PEG placement.
--- NOTE | 2018-08-13 12:30 | NUR ---
*-* DISCHARGE PLANNING *-* PATIENT HAS BEEN REFERRED BACK TO: [facility] [address] P:[phone] F:EMAILED
--- NOTE | 2018-08-13 12:32 | Pre-Procedure Note/Attestation ---
Pre-Procedure Note/Attestation Complete Prior to Procedure Planned Procedure: not applicable Procedure Narrative: esophagogastroduodenoscopy/peg Indications for Procedure Pre-Operative Diagnosis: dysphagia Attestation I attest that I discussed the nature of the procedure; its benefits; risks and complications; and alternatives (and the risks and benefits of such alternatives ), prior to the procedure, with the patient (or the patient's legal agency service representative). I attest that, if there was a reasonable possibility of needing a blood transfusion, the patient (or the patient's legal agency service representative) was given the [facility] standardized written summary, pursuant to the [place] Blood Safety Act ([place] Health and Safety Code # 1645, as amended). I attest that I re-evaluated the patient just prior to the surgery and that there has been no change in the patient's H&P, except as documented below: Gallo Loya MD Aug 13, 2018 12:32
[2018-08-13] MEDS ORDERED: NS 500ML IVPB ONE (12:35)
--- NOTE | 2018-08-13 12:37 | Endoscopy Procedure Note ---
Endoscopy Procedure Note General Indication for Procedure: dysphagia Procedures Performed: EGD, PEG Operative Findings/Diagnosis: same Specimen: yes Pt Tolerated Procedure Well: Yes Estimated Blood Loss: none Anesthesia Anesthesiologist: tia Anesthesia: MAC Inserted Devices Implant(s) used?: No GI Core Measures 50 yrs or older w/o bx or poly: Not Applicable 10yrs. F/U not recommended: Not Applicable Gallo Loya MD Aug 13, 2018 12:37
--- NOTE | 2018-08-13 12:39 | Pulmonology Progress Note ---
Assessment/Plan Problems: (1) ARF (acute renal failure) (2) Severe dehydration (3) UTI (urinary tract infection) (4) FTT (failure to thrive) in adult Assessment/Plan NPO for PEG continue iv fluids check electrolytes psych evaluation check cultures dvt prophylaxis symptomatic treatment Subjective ROS Limited/Unobtainable: Yes Interval Events: late note for 08/12 Allergies: Coded Allergies: No Known Allergies (Unverified , 08/10/18) Objective Last 24 Hour Vital Signs Date Time Temp Pulse Resp B/P (MAP) Pulse Ox O2 Delivery O2 Flow Rate FiO2 08/13/18 09:00 Room Air 08/13/18 04:00 98.8 89 19 97/54 (68) 98 08/13/18 00:00 98.5 102 20 109/64 (79) 95 08/12/18 21:00 Room Air 08/12/18 20:00 98.5 107 20 101/62 (75) 95 Intake and Output 08/12/18 08/13/18 19:00 07:00 Intake Total 655 ml Output Total 1550 ml 1000 ml Balance -1550 ml -345 ml Intake IV Total 655 ml Output Urine Total 1550 ml 1000 ml # Voids 1 Objective General Appearance: cachetic HEENT: normocephalic, atraumatic Respiratory/Chest: chest wall non-tender, lungs clear Cardiovascular: normal peripheral pulses, normal rate Abdomen: normal bowel sounds, no organomegaly Genitourinary: normal external genitalia Extremities: no clubbing Microbiology Date/Time Source Procedure Growth Status 08/11/18 16:25 Blood Blood Culture - Preliminary NO GROWTH AFTER 24 HOURS Resulted 08/11/18 16:20 Blood Blood Culture - Preliminary NO GROWTH AFTER 24 HOURS Resulted Laboratory Tests 08/13/18 05:35: White Blood Count 10.8, Red Blood Count 3.95L, Hemoglobin 10.8L, Hematocrit 35.2L, Mean Corpuscular Volume 89, Mean Corpuscular Hemoglobin 27.5, Mean Corpuscular Hemoglobin Concent 30.8L, Red Cell Distribution Width 16.4H, Platelet Count 325, Mean Platelet Volume 6.1L, Neutrophils (%) (Auto) 63.2, Lymphocytes (%) (Auto) 30.8, Monocytes (%) (Auto) 5.1, Eosinophils (%) (Auto) 0.3, Basophils (%) (Auto) 0.6, Prothrombin Time 11.8H, Prothromb Time International Ratio 1.1, Activated Partial Thromboplast Time 28, Sodium Level 153H, Potassium Level 3.5, Chloride Level 121H, Carbon Dioxide Level 18L, Anion Gap 14, Blood Urea Nitrogen 52H, Creatinine 1.9H, Estimat Glomerular Filtration Rate 42.8, Glucose Level 103, Uric Acid 11.5H, Calcium Level 9.4, Phosphorus Level 3.3, Magnesium Level 2.0, Total Bilirubin 0.9, Direct Bilirubin 0.4H, Aspartate Amino Transf (AST/SGOT) 30, Alanine Aminotransferase (ALT/SGPT) 8L, Alkaline Phosphatase 78, Total Protein 9.0H, Albumin 2.5L Current Medications Medications (Trade) Dose Ordered Sig/Jennifer Route PRN Reason Start Time Stop Time Status Last Admin Dose Admin Acetaminophen (Tylenol) 500 mg Q4H PRN ORAL Moderate Pain (Pain Scale 4-6) 08/10/18 16:30 09/09/18 16:29 Aspirin (Ecotrin) 81 mg DAILY ORAL 08/11/18 09:00 09/10/18 08:59 Atorvastatin Calcium (Lipitor) 10 mg BEDTIME ORAL 08/11/18 21:00 09/09/18 20:59 Ceftriaxone Sodium 1 gm/ Dextrose 55 ml @ 110 mls/hr Q24H IVPB 08/12/18 20:00 08/19/18 19:59 08/12/18 23:10 Chlorhexidine Gluconate (Rani-Hex 2%) 1 applic DAILY@2000 TOPIC 08/12/18 20:00 09/11/18 19:59 08/12/18 22:16 Clopidogrel Bisulfate (Plavix) 75 mg DAILY ORAL 08/11/18 09:00 09/10/18 08:59 Dextrose 1,000 ml @ 100 mls/hr Q10H IV 08/12/18 10:30 09/11/18 10:29 08/13/18 10:44 Dextrose (Dextrose 50%) 25 ml Q30M PRN IV Hypoglycemia 08/10/18 16:30 09/09/18 16:29 Dextrose (Dextrose 50%) 50 ml Q30M PRN IV Hypoglycemia 08/10/18 16:30 09/09/18 16:29 Folic Acid (Folate) 2 mg DAILY ORAL 08/11/18 17:15 09/10/18 17:14 Haloperidol Lactate (Haldol) 2 mg Q4H PRN IM Agitation 08/12/18 16:00 09/11/18 15:59 Heparin Sodium/ Sodium Chloride (Heparin 1000 units/500ml Premix) 1,000 unit ONCE PRN IV PICC PLACEMENT 08/12/18 17:00 08/13/18 23:59 Insulin Aspart (NovoLOG) BEFORE MEALS AND HS SUBQ 08/10/18 16:30 09/09/18 16:29 08/12/18 05:27 Lidocaine HCl (Xylocaine 1% 30ml) 30 ml ONCE PRN INJ picc placement 08/12/18 17:00 08/13/18 23:59 Megestrol Acetate (Megace) 40 mg BID ORAL 08/10/18 18:00 08/15/18 17:59 08/10/18 17:24 Pantoprazole (Protonix) 40 mg DAILY IVP 08/11/18 17:00 09/10/18 16:59 08/11/18 19:03 Quetiapine Fumarate (SEROquel) 12.5 mg BID ORAL 08/12/18 16:00 09/11/18 15:59 Tramadol HCl (Ultram) 50 mg Q6H PRN ORAL severe pain 08/10/18 16:30 08/17/18 16:29 Jaylin Dickson MD Aug 13, 2018 12:39
[2018-08-13] MEDS ORDERED: fentaNYL 100 mcg/2 mL IV ONE (13:00)
[2018-08-13] MEDS ORDERED: Propofol 200mg/20ml IV ONE (13:00)
[2018-08-13] MEDS ORDERED: Midazolam 2mg/2ml Inj ONE (13:00)
[2018-08-13] MEDS ORDERED: LR 1000ml ONE (13:00)
--- NOTE | 2018-08-13 13:13 | Anethesia Preoperative Eval ---
Anesthesia Pre-op PMH/ROS General Date of Evaluation: Aug 13, 2018 Time of Evaluation: 12:40 Anesthesiologist: Janina ASA Score: ASA 4 Mallampati Score Class I : Soft palate, uvula, fauces, pillars visible Class II: Soft palate, uvula, fauces visible Class III: Soft palate, base of uvula visible Class IV: Only hard plate visible Mallampati Classification: Class III Surgeon: Shalini Diagnosis: Dysphagia Surgical Procedure: EGD PEG placement Anesthesia History: none Social History: smoking, alcohol use, drug use Family History: no anesthesia problems Allergies: Coded Allergies: No Known Allergies (Unverified , 08/10/18) Patient NPO?: Yes Past Medical History Cardiovascular: Reports: HTN, arrhythmia; Denies: CAD, AR, valve dz, other Pulmonary: Reports: COPD; Denies: asthma, ANDREE, other Gastrointestinal/Genitourinary: Reports: GERD, CRI, other - dysphagia; Denies: ESRD Neurologic/Psychiatric: Reports: dementia, CVA; Denies: depression/anxiety, TIA, other Endocrine: Denies: DM, hypothyroidism, steroids, other HEENT: Denies: cataract (L), cataract (R), glaucoma, [place] (L), [place] (R), other Hematology/Immune: Reports: anemia; Denies: DVT, bleeding disorder, other Musculoskeletal/Integumentary: Reports: DJD, other - s/p bilateral BKA; Denies: OA, RA, DDD, edema Other: other - malnourished PMH Narrative: as above PSxH Narrative: see H&P Anesthesia Pre-op Phys. Exam Physician Exam Last Vital Signs Date Time Temp Pulse Resp B/P (MAP) Pulse Ox O2 Delivery O2 Flow Rate FiO2 08/13/18 09:00 Room Air 08/13/18 04:00 98.8 89 19 97/54 (68) 98 08/10/18 04:01 98 Constitutional: NAD Neurologic: other - unable to obtaine Cardiovascular: RRR Gastrointestinal: S/NT/ND Airway Exam Mallampati Score: Class III MO: limited Neck: stiff ROM: limited Teeth: missing, broken Dentures: no upper, no lower Anesthesia Pre-op A/P Labs Hematology Test 08/13/18 05:35 White Blood Count 10.8 K/UL (4.8-10.8) Red Blood Count 3.95 M/UL (4.70-6.10) L Hemoglobin 10.8 G/DL (14.2-18.0) L Hematocrit 35.2 % (42.0-52.0) L Mean Corpuscular Volume 89 FL (80-99) Mean Corpuscular Hemoglobin 27.5 PG (27.0-31.0) Mean Corpuscular Hemoglobin Concent 30.8 G/DL (32.0-36.0) L Red Cell Distribution Width 16.4 % (11.6-14.8) H Platelet Count 325 K/UL (150-450) Mean Platelet Volume 6.1 FL (6.5-10.1) L Neutrophils (%) (Auto) 63.2 % (45.0-75.0) Lymphocytes (%) (Auto) 30.8 % (20.0-45.0) Monocytes (%) (Auto) 5.1 % (1.0-10.0) Eosinophils (%) (Auto) 0.3 % (0.0-3.0) Basophils (%) (Auto) 0.6 % (0.0-2.0) Coagulation Test 08/13/18 05:35 Prothrombin Time 11.8 SEC (9.30-11.50) H Prothromb Time International Ratio 1.1 (0.9-1.1) Activated Partial Thromboplast Time 28 SEC (23-33) Chemistry Test 08/13/18 05:35 Sodium Level 153 MMOL/L (136-145) H Potassium Level 3.5 MMOL/L (3.5-5.1) Chloride Level 121 MMOL/L (98-107) H Carbon Dioxide Level 18 MMOL/L (21-32) L Anion Gap 14 mmol/L (5-15) Blood Urea Nitrogen 52 mg/dL (7-18) H Creatinine 1.9 MG/DL (0.55-1.30) H Estimat Glomerular Filtration Rate 42.8 mL/min (>60) Glucose Level 103 MG/DL (74-106) Uric Acid 11.5 MG/DL (2.6-7.2) H Calcium Level 9.4 MG/DL (8.5-10.1) Phosphorus Level 3.3 MG/DL (2.5-4.9) Magnesium Level 2.0 MG/DL (1.8-2.4) Total Bilirubin 0.9 MG/DL (0.2-1.0) Direct Bilirubin 0.4 MG/DL (0.0-0.3) H Aspartate Amino Transf (AST/SGOT) 30 U/L (15-37) Alanine Aminotransferase (ALT/SGPT) 8 U/L (12-78) L Alkaline Phosphatase 78 U/L (46-116) Total Protein 9.0 G/DL (6.4-8.2) H Albumin 2.5 G/DL (3.4-5.0) L Risk Assessment & Plan Assessment: ASA 4 Plan: MAC Status Change Before Surgery: No Pre-Antibiotics Drug: Ancef 1gr Given Within 1 Hr of Incision: Yes Time Given: 13:02 Elder Roa MD Aug 13, 2018 13:13
--- NOTE | 2018-08-13 13:14 | Immediate Post-Op Evaluation ---
Immediate Post-Op Evalulation Immediate Post-Op Evalulation Procedure: EGD PEG tube placement Date of Evaluation: Aug 13, 2018 Time of Evaluation: 13:13 IV Fluids: 300 Blood Products: none Estimated Blood Loss: min Urinary Output: none Blood Pressure Systolic: 117 Blood Pressure Diastolic: 76 Pulse Rate: 86 Respiratory Rate: 16 O2 Sat by Pulse Oximetry: 98 Temperature (Fahrenheit): 97.5 Pain Score (1-10): 1 Nausea: No Vomiting: No Complications none Patient Status: reacts, patent, none Hydration Status: adequate lEder Roa MD Aug 13, 2018 13:14
--- NOTE | 2018-08-13 13:40 | NUR ---
NURSE NOTES: Patient back on floor from EGD/PEG placement.
--- NOTE | 2018-08-13 13:45 | NUR ---
NURSE NOTES: Patient off floor for PICC placement.
--- NOTE | 2018-08-13 14:55 | NUR ---
*-* INSURANCE *--* REVIEW HAVE BEEN FAXED TO: JAZMIN LESTER: [place] P- [phone] X [phone] F- [phone]
[2018-08-13] MEDS ORDERED: D5 1/2NS 1000ml IV ONE (14:58)
--- NOTE | 2018-08-13 15:08 | NUR ---
NURSE NOTES: Patient back on floor from PICC placement.
--- NOTE | 2018-08-13 15:12 | Diagnostic Imaging Report ---
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 The right upper extremity was prepped with alcohol. All elements of maximal sterile barrier technique were followed including usage of a cap, mask, sterile gown, sterile gloves, hand hygiene and a large sterile sheet. Sonographic evaluation of the upper extremity was performed demonstrating a patent and compressible basilic vein. Access was obtained under real-time ultrasound guidance (with utilization of sterile gel and sterile probe cover) and digital image was saved and archived. An .018 wire was introduced. Needle exchanged for a 5 [place] peel-away sheath. Measurements were obtained. A 5 [place] dual-lumen Power PICC line catheter was cut to 40 cm and introduced over the wire. Peel-away sheath and wire were removed.Catheter was secured to the skin using 2-0 Prolene suture. Both ports aspirate and flush easily. A single fluoroscopic image shows the distal tip in the superior vena cava. Fluoroscopic time is 108.6 seconds. Impression: Successful placement of an upper extremity PICC line catheter
--- NOTE | 2018-08-13 15:30 | NUR ---
NURSE NOTES: Started tube feeding. Vital AF 1.2 started at 10mL/hour, with a goal of 60ml/hour. Patient tolerated. Abdominal binder on patient.
--- NOTE | 2018-08-13 15:41 | Infectious Diseases Prog Note ---
Assessment/Plan Problems: (1) Sepsis Assessment & Plan: with leukocytosis , source most likely his UTI due to proteus mirabilis , continue ceftriaxone for 7 days , await blood culture x2. (2) UTI (urinary tract infection) Assessment & Plan: on ceftriaxone for 7 days (3) FTT (failure to thrive) in adult Assessment & Plan: may benefit from PEG tube , dietitian consult (4) Severe dehydration Assessment & Plan: continue ivf (5) ARF (acute renal failure) Assessment & Plan: continue IVF for hydration (6) Anemia, unspecified Subjective ROS Limited/Unobtainable: Yes Allergies: Coded Allergies: No Known Allergies (Unverified , 08/10/18) Subjective he was lying in bed, alert, not responsive, afebrile, not verbal , had PICC line in Objective Vital Signs Last 24 Hour Vital Signs Date Time Temp Pulse Resp B/P (MAP) Pulse Ox O2 Delivery O2 Flow Rate FiO2 08/13/18 13:31 97.8 89 15 104/64 100 Nasal Cannula 3 08/13/18 13:20 105 17 102/68 100 Nasal Cannula 3 08/13/18 13:15 105 24 106/75 100 Nasal Cannula 3 08/13/18 13:14 86 16 98 08/13/18 13:10 97.1 111 22 117/64 100 Nasal Cannula 3 08/13/18 09:00 Room Air 08/13/18 04:00 98.8 89 19 97/54 (68) 98 08/13/18 00:00 98.5 102 20 109/64 (79) 95 08/12/18 21:00 Room Air 08/12/18 20:00 98.5 107 20 101/62 (75) 95 Height (Feet): 5 Height (Inches): 6.00 Weight (Pounds): 130 General Appearance: WD/WN, no acute distress HEENT: normocephalic, atraumatic, anicteric, mucous membranes moist, PERRL Respiratory/Chest: chest wall non-tender, lungs clear, normal breath sounds, no respiratory distress, no accessory muscle use Cardiovascular: normal peripheral pulses, normal rate, regular rhythm, no gallop/murmur, no JVD Abdomen: normal bowel sounds, soft, non tender, no organomegaly, non distended , no mass, no scars Extremities: no cyanosis, no clubbing Skin: no rash, no lesions, no ulcers Neurologic/Psychiatric: alert, unresponsiveness Lymphatic: no neck adenopathy, no groin adenopathy Musculoskeletal: normal muscle bulk, no effusion Microbiology Date/Time Source Procedure Growth Status 08/11/18 16:25 Blood Blood Culture - Preliminary NO GROWTH AFTER 24 HOURS Resulted 08/11/18 16:20 Blood Blood Culture - Preliminary NO GROWTH AFTER 24 HOURS Resulted Laboratory Tests Test 08/13/18 05:35 White Blood Count 10.8 K/UL (4.8-10.8) Red Blood Count 3.95 M/UL (4.70-6.10) L Hemoglobin 10.8 G/DL (14.2-18.0) L Hematocrit 35.2 % (42.0-52.0) L Mean Corpuscular Volume 89 FL (80-99) Mean Corpuscular Hemoglobin 27.5 PG (27.0-31.0) Mean Corpuscular Hemoglobin Concent 30.8 G/DL (32.0-36.0) L Red Cell Distribution Width 16.4 % (11.6-14.8) H Platelet Count 325 K/UL (150-450) Mean Platelet Volume 6.1 FL (6.5-10.1) L Neutrophils (%) (Auto) 63.2 % (45.0-75.0) Lymphocytes (%) (Auto) 30.8 % (20.0-45.0) Monocytes (%) (Auto) 5.1 % (1.0-10.0) Eosinophils (%) (Auto) 0.3 % (0.0-3.0) Basophils (%) (Auto) 0.6 % (0.0-2.0) Prothrombin Time 11.8 SEC (9.30-11.50) H Prothromb Time International Ratio 1.1 (0.9-1.1) Activated Partial Thromboplast Time 28 SEC (23-33) Sodium Level 153 MMOL/L (136-145) H Potassium Level 3.5 MMOL/L (3.5-5.1) Chloride Level 121 MMOL/L (98-107) H Carbon Dioxide Level 18 MMOL/L (21-32) L Anion Gap 14 mmol/L (5-15) Blood Urea Nitrogen 52 mg/dL (7-18) H Creatinine 1.9 MG/DL (0.55-1.30) H Estimat Glomerular Filtration Rate 42.8 mL/min (>60) Glucose Level 103 MG/DL (74-106) Uric Acid 11.5 MG/DL (2.6-7.2) H Calcium Level 9.4 MG/DL (8.5-10.1) Phosphorus Level 3.3 MG/DL (2.5-4.9) Magnesium Level 2.0 MG/DL (1.8-2.4) Total Bilirubin 0.9 MG/DL (0.2-1.0) Direct Bilirubin 0.4 MG/DL (0.0-0.3) H Aspartate Amino Transf (AST/SGOT) 30 U/L (15-37) Alanine Aminotransferase (ALT/SGPT) 8 U/L (12-78) L Alkaline Phosphatase 78 U/L (46-116) Total Protein 9.0 G/DL (6.4-8.2) H Albumin 2.5 G/DL (3.4-5.0) L Current Medications Medications (Trade) Dose Ordered Sig/Jennifer Route PRN Reason Start Time Stop Time Status Last Admin Dose Admin Acetaminophen (Tylenol) 500 mg Q4H PRN ORAL Moderate Pain (Pain Scale 4-6) 08/10/18 16:30 09/09/18 16:29 Aspirin (Ecotrin) 81 mg DAILY ORAL 08/11/18 09:00 09/10/18 08:59 Atorvastatin Calcium (Lipitor) 10 mg BEDTIME ORAL 08/11/18 21:00 09/09/18 20:59 Ceftriaxone Sodium 1 gm/ Dextrose 55 ml @ 110 mls/hr Q24H IVPB 08/12/18 20:00 08/19/18 19:59 08/12/18 23:10 Chlorhexidine Gluconate (Rani-Hex 2%) 1 applic DAILY@2000 TOPIC 08/12/18 20:00 09/11/18 19:59 08/12/18 22:16 Clopidogrel Bisulfate (Plavix) 75 mg DAILY ORAL 08/11/18 09:00 09/10/18 08:59 Dextrose 1,000 ml @ 100 mls/hr Q10H IV 08/12/18 10:30 09/11/18 10:29 08/13/18 10:44 Dextrose (Dextrose 50%) 25 ml Q30M PRN IV Hypoglycemia 08/10/18 16:30 09/09/18 16:29 Dextrose (Dextrose 50%) 50 ml Q30M PRN IV Hypoglycemia 08/10/18 16:30 09/09/18 16:29 Folic Acid (Folate) 2 mg DAILY ORAL 08/11/18 17:15 09/10/18 17:14 Haloperidol Lactate (Haldol) 2 mg Q4H PRN IM Agitation 08/12/18 16:00 09/11/18 15:59 Heparin Sodium/ Sodium Chloride (Heparin 1000 units/500ml Premix) 1,000 unit ONCE PRN IV PICC PLACEMENT 08/12/18 17:00 08/13/18 23:59 Insulin Aspart (NovoLOG) BEFORE MEALS AND HS SUBQ 08/10/18 16:30 09/09/18 16:29 08/12/18 05:27 Lidocaine HCl (Xylocaine 1% 30ml) 30 ml ONCE PRN INJ picc placement 08/12/18 17:00 08/13/18 23:59 Megestrol Acetate (Megace) 40 mg BID ORAL 08/10/18 18:00 08/15/18 17:59 08/10/18 17:24 Pantoprazole (Protonix) 40 mg DAILY IVP 08/11/18 17:00 09/10/18 16:59 08/11/18 19:03 Quetiapine Fumarate (SEROquel) 12.5 mg BID ORAL 08/12/18 16:00 09/11/18 15:59 Tramadol HCl (Ultram) 50 mg Q6H PRN ORAL severe pain 08/10/18 16:30 08/17/18 16:29 Robert Massey M.D. Aug 13, 2018 15:41
[2018-08-13] MEDS ORDERED: Dextrose 10% 1,000 ML IV PRN (15:45)
--- NOTE | 2018-08-13 16:31 | Nephrology Progress Note ---
Assessment/Plan Problem List: (1) ARF (acute renal failure) (2) UTI (urinary tract infection) (3) FTT (failure to thrive) in adult (4) Anemia, unspecified (5) Severe dehydration (6) Proteinuria Assessment Acute Renal Failure Likely Underlying CKD Dehydration FTT , HypoAlbuminemia UTI Anemia DM , ? Nephropathy CAD Plan due PEG today uncooperative PRN Haldol PO Seroquel consider PEG Reocephin IV fluids- not been getting it due to being uncooperative Anemia jorge Monitor I&O and renal parameters folic acid Per orders Subjective ROS Limited/Unobtainable: No Constitutional: Reports: malaise Objective Objective Last 24 Hour Vital Signs Date Time Temp Pulse Resp B/P (MAP) Pulse Ox O2 Delivery O2 Flow Rate FiO2 08/13/18 13:31 97.8 89 15 104/64 100 Nasal Cannula 3 08/13/18 13:20 105 17 102/68 100 Nasal Cannula 3 08/13/18 13:15 105 24 106/75 100 Nasal Cannula 3 08/13/18 13:14 86 16 98 08/13/18 13:10 97.1 111 22 117/64 100 Nasal Cannula 3 08/13/18 09:00 Room Air 08/13/18 04:00 98.8 89 19 97/54 (68) 98 08/13/18 00:00 98.5 102 20 109/64 (79) 95 08/12/18 21:00 Room Air 08/12/18 20:00 98.5 107 20 101/62 (75) 95 Intake and Output 08/12/18 08/13/18 19:00 07:00 Intake Total 655 ml Output Total 1550 ml 1000 ml Balance -1550 ml -345 ml IV Total 655 ml Output Urine Total 1550 ml 1000 ml # Voids 1 Laboratory Tests 08/13/18 05:35: White Blood Count 10.8, Red Blood Count 3.95L, Hemoglobin 10.8L, Hematocrit 35.2L, Mean Corpuscular Volume 89, Mean Corpuscular Hemoglobin 27.5, Mean Corpuscular Hemoglobin Concent 30.8L, Red Cell Distribution Width 16.4H, Platelet Count 325, Mean Platelet Volume 6.1L, Neutrophils (%) (Auto) 63.2, Lymphocytes (%) (Auto) 30.8, Monocytes (%) (Auto) 5.1, Eosinophils (%) (Auto) 0.3, Basophils (%) (Auto) 0.6, Prothrombin Time 11.8H, Prothromb Time International Ratio 1.1, Activated Partial Thromboplast Time 28, Sodium Level 153H, Potassium Level 3.5, Chloride Level 121H, Carbon Dioxide Level 18L, Anion Gap 14, Blood Urea Nitrogen 52H, Creatinine 1.9H, Estimat Glomerular Filtration Rate 42.8, Glucose Level 103, Uric Acid 11.5H, Calcium Level 9.4, Phosphorus Level 3.3, Magnesium Level 2.0, Total Bilirubin 0.9, Direct Bilirubin 0.4H, Aspartate Amino Transf (AST/SGOT) 30, Alanine Aminotransferase (ALT/SGPT) 8L, Alkaline Phosphatase 78, Total Protein 9.0H, Albumin 2.5L Height (Feet): 5 Height (Inches): 6.00 Weight (Pounds): 130 General Appearance: no apparent distress Objective no change Gennaro Cagle MD Aug 13, 2018 16:31
--- NOTE | 2018-08-13 19:16 | NUR ---
HAND-OFF: Report given to SARAH Winters.
--- NOTE | 2018-08-13 20:00 | NUR ---
NURSE NOTES: Patient in bed, awake, unable to make needs known. Respiration is even and unlabored. NO s/s of pain or discomfort noted. GT feeding noted, patent. Will increase feeding rate. Kept clean and comfortable. Provide safe environment. Pelayo catheter noted. Skin is intact, warm and dry to touch. Bed in low and locked position. Provide safe environment.
[2018-08-13] MEDS: cefTRIAXone 1 GM in D5W 55 ML IVPB SCH (20:33)
[2018-08-13] MEDS: Dyna-Hex 2% Top Sol 2oz TOPIC SCH (20:33)
--- NOTE | 2018-08-13 22:45 | Procedure Note ---
DATE OF PROCEDURE: 08/13/2018 SURGEON: Gallo Loya M.D. ANESTHESIOLOGIST: Dr. Roa. REFERRING PHYSICIAN: Yannick Marshall M.D. PROCEDURE: Upper endoscopy with biopsy and PEG placement. ANESTHESIA: Per Dr. Roa. INSTRUMENT: Olympus adult flexible upper endoscope. INDICATION: Dysphagia. The procedure, risks, benefits, and possible consequences, including hemorrhage, aspiration, perforation and infection, and alternative treatments, were explained to the patient/legal guardian by Dr. Gallo Loya and the patient/legal guardian understood and accepted these risks. DESCRIPTION OF PROCEDURE: After informed consent was obtained and the patient was adequately sedated, Olympus upper endoscope was advanced from the mouth to the second portion of duodenum and retroflexion was performed in the stomach. The patient had evidence of diffuse gastritis. Random biopsy from antrum was obtained to rule out H. pylori infection. Then, under endoscopic guidance under sterile condition, a 20-Japanese pull type of G-tube was successfully placed in the epigastric area. The distance from the tip of the tube to skin was about 2.5 cm in size. The patient tolerated the procedure very well without any complication. SUMMARY OF FINDINGS: Status post successful PEG placement. RECOMMENDATIONS: Abdominal binder. Elevate the head of the bed at all times. G-tube flush. G-tube care. Start tube feeding later today. The patient received a dose of antibiotics prior to this procedure. I want to thank Dr. Yannick Marshall for this kind referral. Gallo Loya M.D. DR: Jayjay JOB#: [id number] CC: Yannick Marshall M.D.; Fax#: [phone]
--- NOTE | 2018-08-13 23:36 | Internal Med Progress Note ---
Subjective Physician Name Yannick Marshall Attending Physician Yannick Marshall MD Current Medications Medications (Trade) Dose Ordered Sig/Jennifer Route PRN Reason Start Time Stop Time Status Last Admin Dose Admin Acetaminophen (Tylenol) 500 mg Q4H PRN ORAL Moderate Pain (Pain Scale 4-6) 08/10/18 16:30 09/09/18 16:29 Allopurinol (Allopurinol) 300 mg DAILY GT 08/14/18 09:00 09/13/18 08:59 Aspirin (Ecotrin) 81 mg DAILY ORAL 08/11/18 09:00 09/10/18 08:59 Atorvastatin Calcium (Lipitor) 10 mg BEDTIME ORAL 08/11/18 21:00 09/09/18 20:59 08/13/18 20:33 Ceftriaxone Sodium 1 gm/ Dextrose 55 ml @ 110 mls/hr Q24H IVPB 08/12/18 20:00 08/19/18 19:59 08/13/18 20:33 Chlorhexidine Gluconate (Rani-Hex 2%) 1 applic DAILY@2000 TOPIC 08/12/18 20:00 09/11/18 19:59 08/13/18 20:33 Clopidogrel Bisulfate (Plavix) 75 mg DAILY ORAL 08/11/18 09:00 09/10/18 08:59 Dextrose 1,000 ml @ 50 mls/hr Q20H IV 08/13/18 16:30 09/12/18 16:29 08/13/18 16:40 Dextrose (Dextrose 50%) 25 ml Q30M PRN IV Hypoglycemia 08/13/18 15:45 09/12/18 15:44 Dextrose (Dextrose 50%) 50 ml Q30M PRN IV Hypoglycemia 08/13/18 15:45 09/12/18 15:44 Folic Acid (Folate) 2 mg DAILY ORAL 08/11/18 17:15 09/10/18 17:14 Haloperidol Lactate (Haldol) 2 mg Q4H PRN IM Agitation 08/12/18 16:00 09/11/18 15:59 Heparin Sodium/ Sodium Chloride (Heparin 1000 units/500ml Premix) 1,000 unit ONCE PRN IV PICC PLACEMENT 08/12/18 17:00 08/13/18 23:59 Insulin Aspart (NovoLOG) Q6HR SUBQ 08/13/18 18:00 09/12/18 17:59 08/13/18 23:13 Lidocaine HCl (Xylocaine 1% 30ml) 30 ml ONCE PRN INJ picc placement 08/12/18 17:00 08/13/18 23:59 Megestrol Acetate (Megace) 40 mg BID ORAL 08/10/18 18:00 08/15/18 17:59 08/13/18 18:11 Pantoprazole (Protonix) 40 mg DAILY IVP 08/11/18 17:00 09/10/18 16:59 08/11/18 19:03 Quetiapine Fumarate (SEROquel) 12.5 mg BID ORAL 08/12/18 16:00 09/11/18 15:59 08/13/18 18:11 Tramadol HCl (Ultram) 50 mg Q6H PRN ORAL severe pain 08/10/18 16:30 08/17/18 16:29 Allergies: Coded Allergies: No Known Allergies (Unverified , 08/10/18) Subjective awake, responsive, not verbal. BUN/CR: 52/1.9,renal function improving Objective Last Vital Signs Date Time Temp Pulse Resp B/P (MAP) Pulse Ox O2 Delivery O2 Flow Rate FiO2 08/13/18 21:00 Room Air 08/13/18 20:00 97.5 105 20 93/62 (72) 98 08/13/18 13:31 3 08/10/18 04:01 98 Laboratory Tests Test 08/13/18 05:35 White Blood Count 10.8 K/UL (4.8-10.8) Red Blood Count 3.95 M/UL (4.70-6.10) L Hemoglobin 10.8 G/DL (14.2-18.0) L Hematocrit 35.2 % (42.0-52.0) L Mean Corpuscular Volume 89 FL (80-99) Mean Corpuscular Hemoglobin 27.5 PG (27.0-31.0) Mean Corpuscular Hemoglobin Concent 30.8 G/DL (32.0-36.0) L Red Cell Distribution Width 16.4 % (11.6-14.8) H Platelet Count 325 K/UL (150-450) Mean Platelet Volume 6.1 FL (6.5-10.1) L Neutrophils (%) (Auto) 63.2 % (45.0-75.0) Lymphocytes (%) (Auto) 30.8 % (20.0-45.0) Monocytes (%) (Auto) 5.1 % (1.0-10.0) Eosinophils (%) (Auto) 0.3 % (0.0-3.0) Basophils (%) (Auto) 0.6 % (0.0-2.0) Prothrombin Time 11.8 SEC (9.30-11.50) H Prothromb Time International Ratio 1.1 (0.9-1.1) Activated Partial Thromboplast Time 28 SEC (23-33) Sodium Level 153 MMOL/L (136-145) H Potassium Level 3.5 MMOL/L (3.5-5.1) Chloride Level 121 MMOL/L (98-107) H Carbon Dioxide Level 18 MMOL/L (21-32) L Anion Gap 14 mmol/L (5-15) Blood Urea Nitrogen 52 mg/dL (7-18) H Creatinine 1.9 MG/DL (0.55-1.30) H Estimat Glomerular Filtration Rate 42.8 mL/min (>60) Glucose Level 103 MG/DL (74-106) Uric Acid 11.5 MG/DL (2.6-7.2) H Calcium Level 9.4 MG/DL (8.5-10.1) Phosphorus Level 3.3 MG/DL (2.5-4.9) Magnesium Level 2.0 MG/DL (1.8-2.4) Total Bilirubin 0.9 MG/DL (0.2-1.0) Direct Bilirubin 0.4 MG/DL (0.0-0.3) H Aspartate Amino Transf (AST/SGOT) 30 U/L (15-37) Alanine Aminotransferase (ALT/SGPT) 8 U/L (12-78) L Alkaline Phosphatase 78 U/L (46-116) Total Protein 9.0 G/DL (6.4-8.2) H Albumin 2.5 G/DL (3.4-5.0) L Microbiology Date/Time Source Procedure Growth Status 08/11/18 16:25 Blood Blood Culture - Preliminary NO GROWTH AFTER 24 HOURS Resulted 08/11/18 16:20 Blood Blood Culture - Preliminary NO GROWTH AFTER 24 HOURS Resulted Intake and Output 3/18/19 3/19/19 19:00 07:00 Intake Total 655 ml Output Total 1550 ml 1000 ml Balance -1550 ml -345 ml IV Total 655 ml Output Urine Total 1550 ml 1000 ml # Voids 1 Objective GENERAL: The patient is awake and responsive, but not verbal. HEAD AND NECK: Pupils equal and reactive to light. Extraocular movements intact. NECK: Supple. No JVD. LUNGS: air entry, poor inspiratory effort. No wheeze or rhonchi. HEART: S1, S2. Distant heart sounds. No murmur or gallops. ABDOMEN: Soft, nondistended, nontender. Positive bowel sounds. : Pelayo cath EXTREMITIES: No cyanosis or clubbing. The patient has bilateral AKA, contracted. NEUROLOGIC: Cranial nerves II through XII are grossly intact. The patient is moving all the extremities spontaneously. Gait was not assessed due to the patient's status. Assessment/Plan Assessment/Plan ASSESSMENT: 1. Acute kidney injury on chronic renal insufficiency. 2. Failure to thrive. 3. Severe dehydration. 4. Decreased oral intake. 5. Diabetes type 2. 6. Status post bilateral lower extremity AKA. 7. Hypertension, presently normotensive. 8. Advanced dementia. 9. Prior history of stroke x2. 10. Ex-smoker. 11. History of alcohol abuse. 12. History of heroin abuse. 13. Severe protein-calorie malnutrition. 14. Porteous mirabilis UTI. PLAN: Broad-spectrum antibiotic: Rocephin. Monitor cultures and laboratory. IV hydration Accu-Chek with sliding scale. Code status: Full Code DVT prophylaxis: heparin subcutaneous. Discussed with Dr. Dickson from Pulmonary/Critical Care and Dr. Cagle from Nephrology. Consider GI consult for PEG placement after consent obtain. Yannick Marshall MD Aug 13, 2018 23:35
[2018-08-14] VITALS: BP 90/60
[2018-08-14 04:00] VITALS: BP 99/54
[2018-08-14] MEDS: NovoLOG Insulin Flexpen SUBQ SCH ×3 (06:14→18:27)
[2018-08-14 06:54] LABS: BASOPHILS % (AUTO) 0.3 % (0.0-2.0); EOSINOPHILS % (AUTO) 0.5 % (0.0-3.0); HEMATOCRIT 29.6 % (42.0-52.0); HEMOGLOBIN 9.1 G/DL (14.2-18.0); MEAN CORPUSCULAR VOLUME 88 FL (80-99); MONOCYTES % (AUTO) 4.2 % (1.0-10.0); PLATELET COUNT 210 K/UL (150-450); RED BLOOD COUNT 3.35 M/UL (4.70-6.10); RED CELL DISTRIBUTION WIDTH 15.8 % (11.6-14.8); WHITE BLOOD COUNT 13.6 K/UL (4.8-10.8)
--- NOTE | 2018-08-14 07:19 | NUR ---
NURSE NOTES: Unable to attain weight, patient on regular mattress.
--- NOTE | 2018-08-14 07:20 | NUR ---
HAND-OFF: Report given to SARAH Saleem.
--- NOTE | 2018-08-14 07:28 | NUR ---
NURSE NOTES: Received report from SARAH Hernandez. patient in bed. alert, non verbal. no respiratory distress noted. no facial grimacing noted. GTF intact. F/C intact and draining. bed in the lowest position. alarm on. call light in place. will continue to monitor.
[2018-08-14 07:32] LABS: ALANINE AMINOTRANSFERASE 13 U/L (12-78); ALBUMIN 2.1 G/DL (3.4-5.0); ALBUMIN/GLOBULIN RATIO 0.4 (1.0-2.7); ALKALINE PHOSPHATASE 65 U/L (46-116); ANION GAP 14 mmol/L (5-15); ASPARTATE AMINO TRANSFERASE 23 U/L (15-37); BILIRUBIN,TOTAL 0.5 MG/DL (0.2-1.0); BLOOD UREA NITROGEN 42 mg/dL (7-18); CALCIUM 8.7 MG/DL (8.5-10.1); CARBON DIOXIDE 18 MMOL/L (21-32); CHLORIDE 119 MMOL/L (98-107); CREATININE 1.5 MG/DL (0.55-1.30); POTASSIUM 3.1 MMOL/L (3.5-5.1); SODIUM 151 MMOL/L (136-145)
[2018-08-14 08:00] VITALS: BP 105/61
[2018-08-14] MEDS: Aspirin EC 81mg tab ORAL SCH (08:17)
[2018-08-14] MEDS: Pantoprazole Inj IVP SCH (08:18)
[2018-08-14] MEDS ORDERED: Potassium Phosphate 30 MM in NS 275 ML IV ONE (10:00)
--- NOTE | 2018-08-14 11:48 | NUR ---
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 UTI . SEVERE DEHYDRATION VS:BP 90/60, P 110, T 97.4, RR 22, SpO2 98 Na 151, BUN 42, CR 1.5, WBC 13.6, Hgb 9.1, Hct 29.6 IS:POTASSIUM PHOSPHATE 285ml IV ALLOPURINOL 300mg GT MAGNESIUM SULFATE 100ml IVPB NOVOLOG SUBQ SEROQUEL 12.5 mg PROTONIX 40mgPLAVIX 75mg PICC LINE INSERTED Impression: Successful placement of an upper extremity PICC line catheter MED/SURG STATUS
[2018-08-14 12:00] VITALS: BP 91/41
--- NOTE | 2018-08-14 12:09 | GI Progress Note ---
Assessment/Plan Problems: (1) Severe dehydration ICD Codes: E86.0 - Dehydration SNOMED: 034658316 (2) Anemia, unspecified ICD Codes: D64.9 - Anemia, unspecified SNOMED: 058933403 Qualifiers: Qualified Codes: D64.9 - Anemia, unspecified (3) FTT (failure to thrive) in adult ICD Codes: R62.7 - Adult failure to thrive SNOMED: 090632702 (4) DM (5) S/P AKA (above knee amputation) bilateral ICD Codes: Z89.611 - Acquired absence of right leg above knee; Z89.612 - Acquired absence of left leg above knee SNOMED: 84161393, 887311691 Status: stable Status Narrative Discussed with Dr. Loya. Assessment/Plan SUMMARY OF FINDINGS: Status post successful PEG placement. RECOMMENDATIONS: Abdominal binder. Elevate the head of the bed at all times. G-tube flush. G-tube care. GTFs per RD reglan if needed prn transfusions ppi follow labs The patient was seen and examined at bedside and all new and available data was reviewed in the patients chart. I agree with the above findings, impression and plan. (Patient seen earlier today. Signature stamp does not reflect patient encounter time.). - Gallo Loya MD Subjective Subjective limited Objective Last 24 Hour Vital Signs Date Time Temp Pulse Resp B/P (MAP) Pulse Ox O2 Delivery O2 Flow Rate FiO2 08/14/18 09:00 Room Air 08/14/18 08:00 98.2 109 22 105/61 (76) 99 08/14/18 04:00 97.6 106 20 99/54 (69) 97 08/14/18 00:00 97.4 110 20 90/60 (70) 94 08/13/18 21:00 Room Air 08/13/18 20:00 97.5 105 20 93/62 (72) 98 08/13/18 16:00 98.0 109 18 109/68 (82) 95 08/13/18 13:31 97.8 89 15 104/64 100 Nasal Cannula 3 08/13/18 13:20 105 17 102/68 100 Nasal Cannula 3 08/13/18 13:15 105 24 106/75 100 Nasal Cannula 3 08/13/18 13:14 86 16 98 08/13/18 13:10 97.1 111 22 117/64 100 Nasal Cannula 3 Intake and Output 08/13/18 08/14/18 18:59 06:59 Intake Total 920 ml 785 ml Output Total 900 ml 500 ml Balance 20 ml 285 ml Intake Free Water 380 ml IV Total 500 ml 405 ml Tube Feeding 40 ml 380 ml Output Urine Total 900 ml 500 ml Laboratory Tests Test 08/14/18 05:30 White Blood Count 13.6 K/UL (4.8-10.8) H Red Blood Count 3.35 M/UL (4.70-6.10) L Hemoglobin 9.1 G/DL (14.2-18.0) L Hematocrit 29.6 % (42.0-52.0) L Mean Corpuscular Volume 88 FL (80-99) Mean Corpuscular Hemoglobin 27.2 PG (27.0-31.0) Mean Corpuscular Hemoglobin Concent 30.8 G/DL (32.0-36.0) L Red Cell Distribution Width 15.8 % (11.6-14.8) H Platelet Count 210 K/UL (150-450) Mean Platelet Volume 5.7 FL (6.5-10.1) L Neutrophils (%) (Auto) 73.0 % (45.0-75.0) Lymphocytes (%) (Auto) 22.0 % (20.0-45.0) Monocytes (%) (Auto) 4.2 % (1.0-10.0) Eosinophils (%) (Auto) 0.5 % (0.0-3.0) Basophils (%) (Auto) 0.3 % (0.0-2.0) Sodium Level 151 MMOL/L (136-145) H Potassium Level 3.1 MMOL/L (3.5-5.1) L Chloride Level 119 MMOL/L (98-107) H Carbon Dioxide Level 18 MMOL/L (21-32) L Anion Gap 14 mmol/L (5-15) Blood Urea Nitrogen 42 mg/dL (7-18) H Creatinine 1.5 MG/DL (0.55-1.30) H Estimat Glomerular Filtration Rate 56.2 mL/min (>60) Glucose Level 158 MG/DL (74-106) H Uric Acid 10.2 MG/DL (2.6-7.2) H Calcium Level 8.7 MG/DL (8.5-10.1) Phosphorus Level 2.0 MG/DL (2.5-4.9) L Magnesium Level 1.5 MG/DL (1.8-2.4) L Total Bilirubin 0.5 MG/DL (0.2-1.0) Aspartate Amino Transf (AST/SGOT) 23 U/L (15-37) Alanine Aminotransferase (ALT/SGPT) 13 U/L (12-78) Alkaline Phosphatase 65 U/L (46-116) Total Protein 7.5 G/DL (6.4-8.2) Albumin 2.1 G/DL (3.4-5.0) L Globulin 5.4 g/dL Albumin/Globulin Ratio 0.4 (1.0-2.7) L Folate 4.0 NG/ML (8.6-58.9) L Height (Feet): 5 Height (Inches): 6.00 Weight (Pounds): 130 General Appearance: WD/WN, no apparent distress, alert Cardiovascular: normal rate Respiratory/Chest: normal breath sounds, no respiratory distress Abdominal Exam: normal bowel sounds, non tender, soft, GT site - c/d/i Extremities: normal range of motion, non-tender Bo Galdamez NP Aug 14, 2018 12:09
--- NOTE | 2018-08-14 12:47 | Pulmonology Progress Note ---
Assessment/Plan Problems: (1) ARF (acute renal failure) (2) Severe dehydration (3) UTI (urinary tract infection) (4) FTT (failure to thrive) in adult Assessment/Plan Peg done, tolerating feeding continue iv fluids check electrolytes, renal function better psych evaluation check cultures dvt prophylaxis renal function improving symptomatic treatment Subjective ROS Limited/Unobtainable: No Constitutional: Reports: no symptoms HEENT: Repors: no symptoms Respiratory: Reports: no symptoms Allergies: Coded Allergies: No Known Allergies (Unverified , 08/10/18) Objective Last 24 Hour Vital Signs Date Time Temp Pulse Resp B/P (MAP) Pulse Ox O2 Delivery O2 Flow Rate FiO2 08/14/18 09:00 Room Air 08/14/18 08:00 98.2 109 22 105/61 (76) 99 08/14/18 04:00 97.6 106 20 99/54 (69) 97 08/14/18 00:00 97.4 110 20 90/60 (70) 94 08/13/18 21:00 Room Air 08/13/18 20:00 97.5 105 20 93/62 (72) 98 08/13/18 16:00 98.0 109 18 109/68 (82) 95 08/13/18 13:31 97.8 89 15 104/64 100 Nasal Cannula 3 08/13/18 13:20 105 17 102/68 100 Nasal Cannula 3 08/13/18 13:15 105 24 106/75 100 Nasal Cannula 3 08/13/18 13:14 86 16 98 08/13/18 13:10 97.1 111 22 117/64 100 Nasal Cannula 3 Intake and Output 08/13/18 08/14/18 18:59 06:59 Intake Total 920 ml 785 ml Output Total 900 ml 500 ml Balance 20 ml 285 ml Intake Free Water 380 ml IV Total 500 ml 405 ml Tube Feeding 40 ml 380 ml Output Urine Total 900 ml 500 ml Objective General Appearance: cachetic HEENT: normocephalic, atraumatic Respiratory/Chest: chest wall non-tender, lungs clear Cardiovascular: normal peripheral pulses, normal rate Abdomen: normal bowel sounds, no organomegaly Genitourinary: normal external genitalia Extremities: no clubbing Microbiology Date/Time Source Procedure Growth Status 08/11/18 16:25 Blood Blood Culture - Preliminary NO GROWTH AFTER 48 HOURS Resulted 08/11/18 16:20 Blood Blood Culture - Preliminary NO GROWTH AFTER 48 HOURS Resulted Laboratory Tests 08/14/18 05:30: White Blood Count 13.6H, Red Blood Count 3.35L, Hemoglobin 9.1L, Hematocrit 29.6L, Mean Corpuscular Volume 88, Mean Corpuscular Hemoglobin 27.2, Mean Corpuscular Hemoglobin Concent 30.8L, Red Cell Distribution Width 15.8H, Platelet Count 210, Mean Platelet Volume 5.7L, Neutrophils (%) (Auto) 73.0, Lymphocytes (%) (Auto) 22.0, Monocytes (%) (Auto) 4.2, Eosinophils (%) (Auto) 0.5, Basophils (%) (Auto) 0.3, Sodium Level 151H, Potassium Level 3.1L, Chloride Level 119H, Carbon Dioxide Level 18L, Anion Gap 14, Blood Urea Nitrogen 42H, Creatinine 1.5H, Estimat Glomerular Filtration Rate 56.2, Glucose Level 158H, Uric Acid 10.2H, Calcium Level 8.7, Phosphorus Level 2.0L, Magnesium Level 1.5L, Total Bilirubin 0.5, Aspartate Amino Transf (AST/SGOT) 23 , Alanine Aminotransferase (ALT/SGPT) 13, Alkaline Phosphatase 65, Total Protein 7.5, Albumin 2.1L, Globulin 5.4, Albumin/Globulin Ratio 0.4L, Folate 4.0L Current Medications Medications (Trade) Dose Ordered Sig/Jennifer Route PRN Reason Start Time Stop Time Status Last Admin Dose Admin Acetaminophen (Tylenol) 500 mg Q4H PRN ORAL Moderate Pain (Pain Scale 4-6) 08/10/18 16:30 09/09/18 16:29 Allopurinol (Allopurinol) 300 mg DAILY GT 08/14/18 09:00 09/13/18 08:59 08/14/18 08:17 Aspirin (Ecotrin) 81 mg DAILY ORAL 08/11/18 09:00 09/10/18 08:59 08/14/18 08:17 Atorvastatin Calcium (Lipitor) 10 mg BEDTIME ORAL 08/11/18 21:00 09/09/18 20:59 08/13/18 20:33 Ceftriaxone Sodium 1 gm/ Dextrose 55 ml @ 110 mls/hr Q24H IVPB 08/12/18 20:00 08/19/18 19:59 08/13/18 20:33 Chlorhexidine Gluconate (Rani-Hex 2%) 1 applic DAILY@2000 TOPIC 08/12/18 20:00 09/11/18 19:59 08/13/18 20:33 Clopidogrel Bisulfate (Plavix) 75 mg DAILY ORAL 08/11/18 09:00 09/10/18 08:59 08/14/18 08:17 Dextrose 1,000 ml @ 50 mls/hr Q20H IV 08/13/18 16:30 09/12/18 16:29 08/13/18 16:40 Dextrose (Dextrose 50%) 25 ml Q30M PRN IV Hypoglycemia 08/13/18 15:45 09/12/18 15:44 Dextrose (Dextrose 50%) 50 ml Q30M PRN IV Hypoglycemia 08/13/18 15:45 09/12/18 15:44 Folic Acid (Folate) 5 mg DAILY ORAL 08/15/18 09:00 09/14/18 08:59 Haloperidol Lactate (Haldol) 2 mg Q4H PRN IM Agitation 08/12/18 16:00 09/11/18 15:59 Insulin Aspart (NovoLOG) Q6HR SUBQ 08/13/18 18:00 09/12/18 17:59 08/14/18 06:14 Pantoprazole (Protonix) 40 mg DAILY IVP 08/11/18 17:00 09/10/18 16:59 08/14/18 08:18 Potassium Phosphate 30 mm/ Sodium Chloride 285 ml @ 47.5 mls/hr ONCE ONCE IV 08/14/18 10:00 08/14/18 15:59 08/14/18 11:15 Quetiapine Fumarate (SEROquel) 12.5 mg BID ORAL 08/12/18 16:00 09/11/18 15:59 08/14/18 08:17 Tramadol HCl (Ultram) 50 mg Q6H PRN ORAL severe pain 08/10/18 16:30 08/17/18 16:29 Jaylin Dickson MD Aug 14, 2018 12:47
[2018-08-14] MEDS ORDERED: Sterile Water Irrig 1000ml IRRIG ONE (13:11)
--- NOTE | 2018-08-14 13:38 | NUR ---
RD ASSESSMENT & RECOMMENDATIONS SEE CARE ACTIVITY FOR COMPLETE ASSESSMENT DAILY ESTIMATED NEEDS: Needs based on DM 55.9kg 25-30 kcals/kg 6774-1441 total kcals 1-1.5 g protein/kg 56-84 g total protein 25-30 mL/kg 6311-4451 total fluid mLs NUTRITION DIAGNOSIS: * Swallowing difficulty R/T dysphagia as evidenced by pt is now s/p PEG placement, on TF. * Altered nutrition related lab values r/t clinical status, h/o DM as evidenced by elev NA (151), low K (3.1), elev BUN (80->42) and creat (2.2->1.5), elev BNP (3831), elev POC glu ([phone]). CURRENT TF:Vital AF 1.2 @ 60ml/hr x 24 hrs ENTERAL NUTRITION RECOMMENDATIONS: Glucerna 1.2 @ 55ml/hr x 24 hrs to provide 1320ml, 1584kcal, 79g prot, 1062ml free water * Rec TF change to Glucerna 1.2 -> elemental formula of Vital AF is not indicated, h/o DM * Initiate Glucerna 1.2 @ 25ml/hr x 6 hrs, advance 10ml q 4-6 hrs as tolerated to goal rate * HOB over 30 degrees/ water flush per MD ADDITIONAL RECOMMENDATIONS: 1) TXR pt to bed with BEDSCALE -> NOW S/P PEG PLACEMENT, ADMITTED W/ WT LOSS -> Per SNF, pt was 123 lbs on 07/30/18 2) Weekly wt monitoring 3) Monitor lytes daily, replete as needed 4) Monitor BGs closely- on TF + D5 IVF -> consider DC D5 and increase water flushes instead for hypernatremia
[2018-08-14 16:00] VITALS: BP 90/53
--- NOTE | 2018-08-14 16:04 | Nephrology Progress Note ---
Assessment/Plan Problem List: (1) ARF (acute renal failure) (2) UTI (urinary tract infection) (3) FTT (failure to thrive) in adult (4) Anemia, unspecified (5) Severe dehydration (6) Proteinuria Assessment Acute Renal Failure Likely Underlying CKD Dehydration FTT , HypoAlbuminemia UTI Anemia DM , ? Nephropathy CAD Plan due PEG today uncooperative PRN Haldol PO Seroquel consider PEG Reocephin IV fluids- not been getting it due to being uncooperative Anemia jorge Monitor I&O and renal parameters folic acid Per orders Subjective ROS Limited/Unobtainable: No Constitutional: Reports: malaise, weakness Objective Objective Last 24 Hour Vital Signs Date Time Temp Pulse Resp B/P (MAP) Pulse Ox O2 Delivery O2 Flow Rate FiO2 08/14/18 12:00 98.3 108 24 91/41 (58) 97 08/14/18 09:00 Room Air 08/14/18 08:00 98.2 109 22 105/61 (76) 99 08/14/18 04:00 97.6 106 20 99/54 (69) 97 08/14/18 00:00 97.4 110 20 90/60 (70) 94 08/13/18 21:00 Room Air 08/13/18 20:00 97.5 105 20 93/62 (72) 98 Intake and Output 08/13/18 08/14/18 19:00 07:00 Intake Total 930 ml 835 ml Output Total 900 ml 500 ml Balance 30 ml 335 ml Intake Free Water 380 ml IV Total 500 ml 405 ml Tube Feeding 50 ml 430 ml Output Urine Total 900 ml 500 ml Laboratory Tests 08/14/18 05:30: White Blood Count 13.6H, Red Blood Count 3.35L, Hemoglobin 9.1L, Hematocrit 29.6L, Mean Corpuscular Volume 88, Mean Corpuscular Hemoglobin 27.2, Mean Corpuscular Hemoglobin Concent 30.8L, Red Cell Distribution Width 15.8H, Platelet Count 210, Mean Platelet Volume 5.7L, Neutrophils (%) (Auto) 73.0, Lymphocytes (%) (Auto) 22.0, Monocytes (%) (Auto) 4.2, Eosinophils (%) (Auto) 0.5, Basophils (%) (Auto) 0.3, Sodium Level 151H, Potassium Level 3.1L, Chloride Level 119H, Carbon Dioxide Level 18L, Anion Gap 14, Blood Urea Nitrogen 42H, Creatinine 1.5H, Estimat Glomerular Filtration Rate 56.2, Glucose Level 158H, Uric Acid 10.2H, Calcium Level 8.7, Phosphorus Level 2.0L, Magnesium Level 1.5L, Total Bilirubin 0.5, Aspartate Amino Transf (AST/SGOT) 23 , Alanine Aminotransferase (ALT/SGPT) 13, Alkaline Phosphatase 65, Total Protein 7.5, Albumin 2.1L, Globulin 5.4, Albumin/Globulin Ratio 0.4L, Folate 4.0L Height (Feet): 5 Height (Inches): 6.00 Weight (Pounds): 130 General Appearance: no apparent distress, lethargic Cardiovascular: tachycardia Respiratory/Chest: decreased breath sounds Abdomen: soft Objective no change Gennaro Cagle MD Aug 14, 2018 16:04
--- NOTE | 2018-08-14 17:16 | Infectious Diseases Prog Note ---
Assessment/Plan Problems: (1) Sepsis Assessment & Plan: with leukocytosis now worse due to recent procedure , source most likely his UTI due to proteus mirabilis , continue ceftriaxone for 7 days , blood culture x2 is negative . (2) UTI (urinary tract infection) Assessment & Plan: on ceftriaxone for 7 days (3) FTT (failure to thrive) in adult Assessment & Plan: S/P PEG tube placement , dietitian is following (4) Severe dehydration Assessment & Plan: continue ivf (5) ARF (acute renal failure) Assessment & Plan: improving, continue IVF for hydration (6) Anemia, unspecified Subjective ROS Limited/Unobtainable: Yes Allergies: Coded Allergies: No Known Allergies (Unverified , 08/10/18) Subjective he was lying in bed, alert, not responsive, afebrile, not verbal , had PICC line in and PEG tube yesterday Objective Vital Signs Last 24 Hour Vital Signs Date Time Temp Pulse Resp B/P (MAP) Pulse Ox O2 Delivery O2 Flow Rate FiO2 08/14/18 16:00 97.3 98 18 90/53 (65) 97 08/14/18 12:00 98.3 108 24 91/41 (58) 97 08/14/18 09:00 Room Air 08/14/18 08:00 98.2 109 22 105/61 (76) 99 08/14/18 04:00 97.6 106 20 99/54 (69) 97 08/14/18 00:00 97.4 110 20 90/60 (70) 94 08/13/18 21:00 Room Air 08/13/18 20:00 97.5 105 20 93/62 (72) 98 Height (Feet): 5 Height (Inches): 6.00 Weight (Pounds): 114 General Appearance: WD/WN, no acute distress HEENT: normocephalic, atraumatic, anicteric, mucous membranes moist, PERRL Respiratory/Chest: chest wall non-tender, lungs clear, normal breath sounds, no respiratory distress, no accessory muscle use Cardiovascular: normal peripheral pulses, normal rate, regular rhythm, no gallop/murmur, no JVD Abdomen: normal bowel sounds, soft, non tender, no organomegaly, non distended , no mass, no scars Extremities: no cyanosis, no clubbing Skin: no rash, no lesions Neurologic/Psychiatric: alert, oriented x 3, responsive Lymphatic: no neck adenopathy, no groin adenopathy Musculoskeletal: normal muscle bulk, no effusion Laboratory Tests Test 08/14/18 05:30 White Blood Count 13.6 K/UL (4.8-10.8) H Red Blood Count 3.35 M/UL (4.70-6.10) L Hemoglobin 9.1 G/DL (14.2-18.0) L Hematocrit 29.6 % (42.0-52.0) L Mean Corpuscular Volume 88 FL (80-99) Mean Corpuscular Hemoglobin 27.2 PG (27.0-31.0) Mean Corpuscular Hemoglobin Concent 30.8 G/DL (32.0-36.0) L Red Cell Distribution Width 15.8 % (11.6-14.8) H Platelet Count 210 K/UL (150-450) Mean Platelet Volume 5.7 FL (6.5-10.1) L Neutrophils (%) (Auto) 73.0 % (45.0-75.0) Lymphocytes (%) (Auto) 22.0 % (20.0-45.0) Monocytes (%) (Auto) 4.2 % (1.0-10.0) Eosinophils (%) (Auto) 0.5 % (0.0-3.0) Basophils (%) (Auto) 0.3 % (0.0-2.0) Sodium Level 151 MMOL/L (136-145) H Potassium Level 3.1 MMOL/L (3.5-5.1) L Chloride Level 119 MMOL/L (98-107) H Carbon Dioxide Level 18 MMOL/L (21-32) L Anion Gap 14 mmol/L (5-15) Blood Urea Nitrogen 42 mg/dL (7-18) H Creatinine 1.5 MG/DL (0.55-1.30) H Estimat Glomerular Filtration Rate 56.2 mL/min (>60) Glucose Level 158 MG/DL (74-106) H Uric Acid 10.2 MG/DL (2.6-7.2) H Calcium Level 8.7 MG/DL (8.5-10.1) Phosphorus Level 2.0 MG/DL (2.5-4.9) L Magnesium Level 1.5 MG/DL (1.8-2.4) L Total Bilirubin 0.5 MG/DL (0.2-1.0) Aspartate Amino Transf (AST/SGOT) 23 U/L (15-37) Alanine Aminotransferase (ALT/SGPT) 13 U/L (12-78) Alkaline Phosphatase 65 U/L (46-116) Total Protein 7.5 G/DL (6.4-8.2) Albumin 2.1 G/DL (3.4-5.0) L Globulin 5.4 g/dL Albumin/Globulin Ratio 0.4 (1.0-2.7) L Folate 4.0 NG/ML (8.6-58.9) L Current Medications Medications (Trade) Dose Ordered Sig/Jennifer Route PRN Reason Start Time Stop Time Status Last Admin Dose Admin Acetaminophen (Tylenol) 500 mg Q4H PRN ORAL Moderate Pain (Pain Scale 4-6) 08/10/18 16:30 09/09/18 16:29 Allopurinol (Allopurinol) 300 mg DAILY GT 08/14/18 09:00 09/13/18 08:59 08/14/18 08:17 Aspirin (Ecotrin) 81 mg DAILY ORAL 08/11/18 09:00 09/10/18 08:59 08/14/18 08:17 Atorvastatin Calcium (Lipitor) 10 mg BEDTIME ORAL 08/11/18 21:00 09/09/18 20:59 08/13/18 20:33 Ceftriaxone Sodium 1 gm/ Dextrose 55 ml @ 110 mls/hr Q24H IVPB 08/12/18 20:00 08/19/18 19:59 08/13/18 20:33 Chlorhexidine Gluconate (Rani-Hex 2%) 1 applic DAILY@2000 TOPIC 08/12/18 20:00 09/11/18 19:59 08/13/18 20:33 Clopidogrel Bisulfate (Plavix) 75 mg DAILY ORAL 08/11/18 09:00 09/10/18 08:59 08/14/18 08:17 Dextrose 1,000 ml @ 50 mls/hr Q20H IV 08/13/18 16:30 09/12/18 16:29 08/14/18 12:49 Dextrose (Dextrose 50%) 25 ml Q30M PRN IV Hypoglycemia 08/13/18 15:45 09/12/18 15:44 Dextrose (Dextrose 50%) 50 ml Q30M PRN IV Hypoglycemia 08/13/18 15:45 09/12/18 15:44 Folic Acid (Folate) 5 mg DAILY ORAL 08/15/18 09:00 09/14/18 08:59 Haloperidol Lactate (Haldol) 2 mg Q4H PRN IM Agitation 08/12/18 16:00 09/11/18 15:59 Insulin Aspart (NovoLOG) Q6HR SUBQ 08/13/18 18:00 09/12/18 17:59 08/14/18 12:44 Pantoprazole (Protonix) 40 mg DAILY IVP 08/11/18 17:00 09/10/18 16:59 08/14/18 08:18 Quetiapine Fumarate (SEROquel) 12.5 mg BID ORAL 08/12/18 16:00 09/11/18 15:59 08/14/18 08:17 Tramadol HCl (Ultram) 50 mg Q6H PRN ORAL severe pain 08/10/18 16:30 08/17/18 16:29 Robert Massey M.D. Aug 14, 2018 17:16
--- NOTE | 2018-08-14 18:15 | Internal Med Progress Note ---
Subjective Physician Name Yannick Marshall Attending Physician Yannick Marshall MD Current Medications Medications (Trade) Dose Ordered Sig/Jennifer Route PRN Reason Start Time Stop Time Status Last Admin Dose Admin Acetaminophen (Tylenol) 500 mg Q4H PRN ORAL Moderate Pain (Pain Scale 4-6) 08/10/18 16:30 09/09/18 16:29 Allopurinol (Allopurinol) 300 mg DAILY GT 08/14/18 09:00 09/13/18 08:59 08/14/18 08:17 Aspirin (Ecotrin) 81 mg DAILY ORAL 08/11/18 09:00 09/10/18 08:59 08/14/18 08:17 Atorvastatin Calcium (Lipitor) 10 mg BEDTIME ORAL 08/11/18 21:00 09/09/18 20:59 08/13/18 20:33 Ceftriaxone Sodium 1 gm/ Dextrose 55 ml @ 110 mls/hr Q24H IVPB 08/12/18 20:00 08/19/18 19:59 08/13/18 20:33 Chlorhexidine Gluconate (Rani-Hex 2%) 1 applic DAILY@2000 TOPIC 08/12/18 20:00 09/11/18 19:59 08/13/18 20:33 Clopidogrel Bisulfate (Plavix) 75 mg DAILY ORAL 08/11/18 09:00 09/10/18 08:59 08/14/18 08:17 Dextrose 1,000 ml @ 50 mls/hr Q20H IV 08/13/18 16:30 09/12/18 16:29 08/14/18 12:49 Dextrose (Dextrose 50%) 25 ml Q30M PRN IV Hypoglycemia 08/13/18 15:45 09/12/18 15:44 Dextrose (Dextrose 50%) 50 ml Q30M PRN IV Hypoglycemia 08/13/18 15:45 09/12/18 15:44 Folic Acid (Folate) 5 mg DAILY ORAL 08/15/18 09:00 09/14/18 08:59 Haloperidol Lactate (Haldol) 2 mg Q4H PRN IM Agitation 08/12/18 16:00 09/11/18 15:59 Insulin Aspart (NovoLOG) Q6HR SUBQ 08/13/18 18:00 09/12/18 17:59 08/14/18 12:44 Pantoprazole (Protonix) 40 mg DAILY IVP 08/11/18 17:00 09/10/18 16:59 08/14/18 08:18 Quetiapine Fumarate (SEROquel) 12.5 mg BID ORAL 08/12/18 16:00 09/11/18 15:59 08/14/18 08:17 Tramadol HCl (Ultram) 50 mg Q6H PRN ORAL severe pain 08/10/18 16:30 08/17/18 16:29 Allergies: Coded Allergies: No Known Allergies (Unverified , 08/10/18) Subjective awake, responsive, not verbal. BUN/CR: 42/1.5,renal function improving, S/P PEG yesterday Objective Last Vital Signs Date Time Temp Pulse Resp B/P (MAP) Pulse Ox O2 Delivery O2 Flow Rate FiO2 08/14/18 16:00 97.3 98 18 90/53 (65) 97 08/14/18 09:00 Room Air 08/13/18 13:31 3 08/10/18 04:01 98 Laboratory Tests Test 08/14/18 05:30 White Blood Count 13.6 K/UL (4.8-10.8) H Red Blood Count 3.35 M/UL (4.70-6.10) L Hemoglobin 9.1 G/DL (14.2-18.0) L Hematocrit 29.6 % (42.0-52.0) L Mean Corpuscular Volume 88 FL (80-99) Mean Corpuscular Hemoglobin 27.2 PG (27.0-31.0) Mean Corpuscular Hemoglobin Concent 30.8 G/DL (32.0-36.0) L Red Cell Distribution Width 15.8 % (11.6-14.8) H Platelet Count 210 K/UL (150-450) Mean Platelet Volume 5.7 FL (6.5-10.1) L Neutrophils (%) (Auto) 73.0 % (45.0-75.0) Lymphocytes (%) (Auto) 22.0 % (20.0-45.0) Monocytes (%) (Auto) 4.2 % (1.0-10.0) Eosinophils (%) (Auto) 0.5 % (0.0-3.0) Basophils (%) (Auto) 0.3 % (0.0-2.0) Sodium Level 151 MMOL/L (136-145) H Potassium Level 3.1 MMOL/L (3.5-5.1) L Chloride Level 119 MMOL/L (98-107) H Carbon Dioxide Level 18 MMOL/L (21-32) L Anion Gap 14 mmol/L (5-15) Blood Urea Nitrogen 42 mg/dL (7-18) H Creatinine 1.5 MG/DL (0.55-1.30) H Estimat Glomerular Filtration Rate 56.2 mL/min (>60) Glucose Level 158 MG/DL (74-106) H Uric Acid 10.2 MG/DL (2.6-7.2) H Calcium Level 8.7 MG/DL (8.5-10.1) Phosphorus Level 2.0 MG/DL (2.5-4.9) L Magnesium Level 1.5 MG/DL (1.8-2.4) L Total Bilirubin 0.5 MG/DL (0.2-1.0) Aspartate Amino Transf (AST/SGOT) 23 U/L (15-37) Alanine Aminotransferase (ALT/SGPT) 13 U/L (12-78) Alkaline Phosphatase 65 U/L (46-116) Total Protein 7.5 G/DL (6.4-8.2) Albumin 2.1 G/DL (3.4-5.0) L Globulin 5.4 g/dL Albumin/Globulin Ratio 0.4 (1.0-2.7) L Folate 4.0 NG/ML (8.6-58.9) L Intake and Output 08/13/18 08/14/18 19:00 07:00 Intake Total 930 ml 835 ml Output Total 900 ml 500 ml Balance 30 ml 335 ml Intake Free Water 380 ml IV Total 500 ml 405 ml Tube Feeding 50 ml 430 ml Output Urine Total 900 ml 500 ml Objective GENERAL: The patient is awake and responsive, but not verbal. HEAD AND NECK: Pupils equal and reactive to light. Extraocular movements intact. NECK: Supple. No JVD. LUNGS: air entry, poor inspiratory effort. No wheeze or rhonchi. HEART: S1, S2. Distant heart sounds. No murmur or gallops. ABDOMEN: Soft, nondistended, nontender. Positive bowel sounds. : Pelayo cath EXTREMITIES: No cyanosis or clubbing. The patient has bilateral AKA, contracted. NEUROLOGIC: Cranial nerves II through XII are grossly intact. The patient is moving all the extremities spontaneously. Gait was not assessed due to the patient's status. Assessment/Plan Assessment/Plan ASSESSMENT: 1. Acute kidney injury on chronic renal insufficiency. 2. Failure to thrive. 3. Severe dehydration. 4. Decreased oral intake s/p PEG (08/13/2017). 5. Diabetes type 2. 6. Status post bilateral lower extremity AKA. 7. Hypertension, presently normotensive. 8. Advanced dementia. 9. Prior history of stroke x2. 10. Ex-smoker. 11. History of alcohol abuse. 12. History of heroin abuse. 13. Severe protein-calorie malnutrition. 14. Porteous mirabilis UTI. PLAN: Broad-spectrum antibiotic: Rocephin. Monitor cultures and laboratory. IV hydration Accu-Chek with sliding scale. Code status: Full Code DVT prophylaxis: heparin subcutaneous. Discussed with Dr. Dickson from Pulmonary/Critical Care and Dr. Cagle from Nephrology. Continue on the tube feeding. Discharge planning to SNF. Yannick Marshall MD Aug 14, 2018 18:15
--- NOTE | 2018-08-14 19:30 | NUR ---
HAND-OFF: Report given to SARAH Orellana.
[2018-08-14 20:00] VITALS: BP 94/63
--- NOTE | 2018-08-14 20:15 | NUR ---
NURSE NOTES: RECEIVED PATIENT IN BED, RESTING AND RESPONSIVE TO LIGHT SHAKING. IV INTACT. NO SIGNS OF RESPIRATORY DISTRESS, PATIENT ON ROOM AIR. PICC NOTED. GARG CATH NOTED. G TUBE FEEDING NOTED. BED IN LOWEST POSITION, CALL LIGHT WITHIN REACH. WILL CONTINUE TO MONITOR.
[2018-08-14] MEDS: Dyna-Hex 2% Top Sol 2oz TOPIC SCH (20:27)
[2018-08-14] MEDS: cefTRIAXone 1 GM in D5W 55 ML IVPB SCH (20:28)
[2018-08-15] VITALS: BP 105/61
[2018-08-15] MEDS: NovoLOG Insulin Flexpen SUBQ SCH ×3 (00:05→13:21)
[2018-08-15 04:00] VITALS: BP 117/65
--- NOTE | 2018-08-15 07:11 | NUR ---
HAND-OFF: Report given to SARAH Saleem.
--- NOTE | 2018-08-15 07:30 | NUR ---
NURSE NOTES: received report from SARAH Orellana. patient in bed, no respiratory distress noted. no facial grimacing. Picc line on rt upper arm. intact. GTF running. F/c intact. draining. bed in the lowest position. alarm on. will continue to monitor.
[2018-08-15 08:00] VITALS: BP 98/56
[2018-08-15 08:01] LABS: BASOPHILS % (AUTO) 0.5 % (0.0-2.0); EOSINOPHILS % (AUTO) 0.8 % (0.0-3.0); HEMATOCRIT 26.8 % (42.0-52.0); HEMOGLOBIN 8.4 G/DL (14.2-18.0); LYMPHOCYTES % (AUTO) 24.3 % (20.0-45.0); MEAN CORPUSCULAR VOLUME 87 FL (80-99); MONOCYTES % (AUTO) 4.3 % (1.0-10.0); NEUTROPHILS % (AUTO) 70.2 % (45.0-75.0); PLATELET COUNT 208 K/UL (150-450); RED BLOOD COUNT 3.07 M/UL (4.70-6.10); RED CELL DISTRIBUTION WIDTH 15.2 % (11.6-14.8); WHITE BLOOD COUNT 13.3 K/UL (4.8-10.8)
[2018-08-15 08:07] LABS: ALANINE AMINOTRANSFERASE 9 U/L (12-78); ALBUMIN 1.9 G/DL (3.4-5.0); ALBUMIN/GLOBULIN RATIO 0.4 (1.0-2.7); ALKALINE PHOSPHATASE 80 U/L (46-116); ANION GAP 13 mmol/L (5-15); ASPARTATE AMINO TRANSFERASE 24 U/L (15-37); BILIRUBIN,TOTAL 0.5 MG/DL (0.2-1.0); BLOOD UREA NITROGEN 33 mg/dL (7-18); CALCIUM 8.2 MG/DL (8.5-10.1); CARBON DIOXIDE 19 MMOL/L (21-32); CHLORIDE 119 MMOL/L (98-107); CREATININE 1.2 MG/DL (0.55-1.30); PHOSPHORUS 2.5 MG/DL (2.5-4.9); POTASSIUM 3.5 MMOL/L (3.5-5.1); SODIUM 150 MMOL/L (136-145)
[2018-08-15] MEDS: Pantoprazole Inj IVP SCH (08:40)
[2018-08-15] MEDS: Aspirin EC 81mg tab ORAL SCH (08:40)
--- NOTE | 2018-08-15 10:20 | NUR ---
*-* INSURANCE *--* CLINICALS AND REVIEW HAVE BEEN FAXED TO: JAZMIN LESTER: [place] P- [phone] X [email or web address] F- [phone]
--- NOTE | 2018-08-15 11:34 | GI Progress Note ---
Assessment/Plan Problems: (1) Severe dehydration ICD Codes: E86.0 - Dehydration SNOMED: 502729780 (2) Anemia, unspecified ICD Codes: D64.9 - Anemia, unspecified SNOMED: 054492329 Qualifiers: Qualified Codes: D64.9 - Anemia, unspecified (3) FTT (failure to thrive) in adult ICD Codes: R62.7 - Adult failure to thrive SNOMED: 213759610 (4) DM (5) S/P AKA (above knee amputation) bilateral ICD Codes: Z89.611 - Acquired absence of right leg above knee; Z89.612 - Acquired absence of left leg above knee SNOMED: 56607995, 356333502 Status: stable Status Narrative Discussed with Dr. Loya Assessment/Plan SUMMARY OF FINDINGS: Status post successful PEG placement. RECOMMENDATIONS: Abdominal binder. Elevate the head of the bed at all times. G-tube flush. G-tube care. GTFs per RD reglan if needed prn transfusions ppi follow labs dc planning The patient was seen and examined at bedside and all new and available data was reviewed in the patients chart. I agree with the above findings, impression and plan. (Patient seen earlier today. Signature stamp does not reflect patient encounter time.). - Gallo Loya MD Subjective Subjective limited Objective Last 24 Hour Vital Signs Date Time Temp Pulse Resp B/P (MAP) Pulse Ox O2 Delivery O2 Flow Rate FiO2 08/15/18 09:00 Room Air 08/15/18 08:00 97.6 97 18 98/56 (70) 96 08/15/18 04:00 97.3 96 18 117/65 (82) 99 08/15/18 00:00 97.5 96 17 105/61 (76) 99 08/14/18 21:00 Room Air 08/14/18 20:00 97.6 105 18 94/63 (73) 99 08/14/18 16:00 97.3 98 18 90/53 (65) 97 08/14/18 12:00 98.3 108 24 91/41 (58) 97 Intake and Output 08/14/18 08/15/18 19:00 07:00 Intake Total 2125.0 ml 1205 ml Output Total 500 ml Balance 1625.0 ml 1205 ml Intake Free Water 300 ml 100 ml IV Total 1185.0 ml 500 ml Tube Feeding 640 ml 605 ml Output Urine Total 500 ml Laboratory Tests Test 08/15/18 06:15 White Blood Count 13.3 K/UL (4.8-10.8) H Red Blood Count 3.07 M/UL (4.70-6.10) L Hemoglobin 8.4 G/DL (14.2-18.0) L Hematocrit 26.8 % (42.0-52.0) L Mean Corpuscular Volume 87 FL (80-99) Mean Corpuscular Hemoglobin 27.3 PG (27.0-31.0) Mean Corpuscular Hemoglobin Concent 31.2 G/DL (32.0-36.0) L Red Cell Distribution Width 15.2 % (11.6-14.8) H Platelet Count 208 K/UL (150-450) Mean Platelet Volume 6.4 FL (6.5-10.1) L Neutrophils (%) (Auto) 70.2 % (45.0-75.0) Lymphocytes (%) (Auto) 24.3 % (20.0-45.0) Monocytes (%) (Auto) 4.3 % (1.0-10.0) Eosinophils (%) (Auto) 0.8 % (0.0-3.0) Basophils (%) (Auto) 0.5 % (0.0-2.0) Sodium Level 150 MMOL/L (136-145) H Potassium Level 3.5 MMOL/L (3.5-5.1) Chloride Level 119 MMOL/L (98-107) H Carbon Dioxide Level 19 MMOL/L (21-32) L Anion Gap 13 mmol/L (5-15) Blood Urea Nitrogen 33 mg/dL (7-18) H Creatinine 1.2 MG/DL (0.55-1.30) Estimat Glomerular Filtration Rate > 60 mL/min (>60) Glucose Level 118 MG/DL (74-106) H Uric Acid 7.1 MG/DL (2.6-7.2) Calcium Level 8.2 MG/DL (8.5-10.1) L Phosphorus Level 2.5 MG/DL (2.5-4.9) Magnesium Level 1.9 MG/DL (1.8-2.4) Total Bilirubin 0.5 MG/DL (0.2-1.0) Aspartate Amino Transf (AST/SGOT) 24 U/L (15-37) Alanine Aminotransferase (ALT/SGPT) 9 U/L (12-78) L Alkaline Phosphatase 80 U/L (46-116) Total Protein 7.1 G/DL (6.4-8.2) Albumin 1.9 G/DL (3.4-5.0) L Globulin 5.2 g/dL Albumin/Globulin Ratio 0.4 (1.0-2.7) L Height (Feet): 5 Height (Inches): 6.00 Weight (Pounds): 114 General Appearance: no apparent distress Cardiovascular: normal rate Respiratory/Chest: normal breath sounds, no respiratory distress Abdominal Exam: normal bowel sounds, non tender, soft, GT site - Clean dry and intact Extremities: non-tender Bo Galdamez NP Aug 15, 2018 11:34
--- NOTE | 2018-08-15 12:08 | Nephrology Progress Note ---
Assessment/Plan Problem List: (1) ARF (acute renal failure) (2) UTI (urinary tract infection) (3) FTT (failure to thrive) in adult (4) Anemia, unspecified (5) Severe dehydration (6) Proteinuria Assessment Acute Renal Failure Likely Underlying CKD Dehydration FTT , HypoAlbuminemia UTI Anemia DM , ? Nephropathy CAD Plan Has PEG start midodrin bolus albumin Recephin Monitor I&O and renal parameters folic acid Per orders Subjective ROS Limited/Unobtainable: No Constitutional: Reports: malaise, weakness Objective Objective Last 24 Hour Vital Signs Date Time Temp Pulse Resp B/P (MAP) Pulse Ox O2 Delivery O2 Flow Rate FiO2 08/15/18 09:00 Room Air 08/15/18 08:00 97.6 97 18 98/56 (70) 96 08/15/18 04:00 97.3 96 18 117/65 (82) 99 08/15/18 00:00 97.5 96 17 105/61 (76) 99 08/14/18 21:00 Room Air 08/14/18 20:00 97.6 105 18 94/63 (73) 99 08/14/18 16:00 97.3 98 18 90/53 (65) 97 Intake and Output 08/14/18 08/15/18 18:59 06:59 Intake Total 2185.0 ml 1205 ml Output Total 500 ml Balance 1685.0 ml 1205 ml Intake Free Water 300 ml 100 ml IV Total 1185.0 ml 500 ml Tube Feeding 700 ml 605 ml Output Urine Total 500 ml Laboratory Tests 08/15/18 06:15: White Blood Count 13.3H, Red Blood Count 3.07L, Hemoglobin 8.4L, Hematocrit 26.8L, Mean Corpuscular Volume 87, Mean Corpuscular Hemoglobin 27.3, Mean Corpuscular Hemoglobin Concent 31.2L, Red Cell Distribution Width 15.2H, Platelet Count 208, Mean Platelet Volume 6.4L, Neutrophils (%) (Auto) 70.2, Lymphocytes (%) (Auto) 24.3, Monocytes (%) (Auto) 4.3, Eosinophils (%) (Auto) 0.8, Basophils (%) (Auto) 0.5, Sodium Level 150H, Potassium Level 3.5, Chloride Level 119H, Carbon Dioxide Level 19L, Anion Gap 13, Blood Urea Nitrogen 33H, Creatinine 1.2, Estimat Glomerular Filtration Rate > 60, Glucose Level 118H, Uric Acid 7.1, Calcium Level 8.2L, Phosphorus Level 2.5, Magnesium Level 1.9, Total Bilirubin 0.5, Aspartate Amino Transf (AST/SGOT) 24, Alanine Aminotransferase (ALT/SGPT) 9L, Alkaline Phosphatase 80, Total Protein 7.1, Albumin 1.9L, Globulin 5.2, Albumin/Globulin Ratio 0.4L Height (Feet): 5 Height (Inches): 6.00 Weight (Pounds): 114 General Appearance: no apparent distress Cardiovascular: normal rate Abdomen: soft, other - GT Objective no change Gennaro Cagle MD Aug 15, 2018 12:08
--- NOTE | 2018-08-15 12:21 | NUR ---
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 UTI . SEVERE DEHYDRATION VS:BP 94/63, P 105, T 97.3, RR 17, SpO2 96 Na 151, BUN 42, CR 1.5, WBC 13.3, Hgb 8.4, Hct 26.8 IS: ALLOPURINOL 300mg GT NOVOLOG SUBQ SEROQUEL 12.5 mg MED/SURG STATUS
[2018-08-15] MEDS ORDERED: ALLOPURINOL100 M1 GT (12:47)
[2018-08-15] MEDS ORDERED: SEROQUEL25 MG ORAL (12:47)
[2018-08-15] MEDS ORDERED: CEFTRIAXON1 GM/50 ML IV (12:47)
--- NOTE | 2018-08-15 12:48 | Pulmonology Progress Note ---
Assessment/Plan Problems: (1) ARF (acute renal failure) (2) Severe dehydration (3) UTI (urinary tract infection) (4) FTT (failure to thrive) in adult Assessment/Plan Peg done, tolerating feeding continue iv fluids check electrolytes, renal function better bun /creatinine better psych evaluation check cultures dvt prophylaxis renal function improving symptomatic treatment dc with three days of ceftriaxone Subjective ROS Limited/Unobtainable: No Constitutional: Reports: no symptoms HEENT: Repors: no symptoms Respiratory: Reports: no symptoms Allergies: Coded Allergies: No Known Allergies (Unverified , 08/10/18) Objective Last 24 Hour Vital Signs Date Time Temp Pulse Resp B/P (MAP) Pulse Ox O2 Delivery O2 Flow Rate FiO2 08/15/18 09:00 Room Air 08/15/18 08:00 97.6 97 18 98/56 (70) 96 08/15/18 04:00 97.3 96 18 117/65 (82) 99 08/15/18 00:00 97.5 96 17 105/61 (76) 99 08/14/18 21:00 Room Air 08/14/18 20:00 97.6 105 18 94/63 (73) 99 08/14/18 16:00 97.3 98 18 90/53 (65) 97 Intake and Output 08/14/18 08/15/18 18:59 06:59 Intake Total 2185.0 ml 1205 ml Output Total 500 ml Balance 1685.0 ml 1205 ml Intake Free Water 300 ml 100 ml IV Total 1185.0 ml 500 ml Tube Feeding 700 ml 605 ml Output Urine Total 500 ml Objective General Appearance: cachetic HEENT: normocephalic, atraumatic Respiratory/Chest: chest wall non-tender, lungs clear Cardiovascular: normal peripheral pulses, normal rate Abdomen: normal bowel sounds, no organomegaly Genitourinary: normal external genitalia Extremities: no clubbing Laboratory Tests 08/15/18 06:15: White Blood Count 13.3H, Red Blood Count 3.07L, Hemoglobin 8.4L, Hematocrit 26.8L, Mean Corpuscular Volume 87, Mean Corpuscular Hemoglobin 27.3, Mean Corpuscular Hemoglobin Concent 31.2L, Red Cell Distribution Width 15.2H, Platelet Count 208, Mean Platelet Volume 6.4L, Neutrophils (%) (Auto) 70.2, Lymphocytes (%) (Auto) 24.3, Monocytes (%) (Auto) 4.3, Eosinophils (%) (Auto) 0.8, Basophils (%) (Auto) 0.5, Sodium Level 150H, Potassium Level 3.5, Chloride Level 119H, Carbon Dioxide Level 19L, Anion Gap 13, Blood Urea Nitrogen 33H, Creatinine 1.2, Estimat Glomerular Filtration Rate > 60, Glucose Level 118H, Uric Acid 7.1, Calcium Level 8.2L, Phosphorus Level 2.5, Magnesium Level 1.9, Total Bilirubin 0.5, Aspartate Amino Transf (AST/SGOT) 24, Alanine Aminotransferase (ALT/SGPT) 9L, Alkaline Phosphatase 80, Total Protein 7.1, Albumin 1.9L, Globulin 5.2, Albumin/Globulin Ratio 0.4L Current Medications Medications (Trade) Dose Ordered Sig/Jennifer Route PRN Reason Start Time Stop Time Status Last Admin Dose Admin Acetaminophen (Tylenol) 500 mg Q4H PRN ORAL Moderate Pain (Pain Scale 4-6) 08/10/18 16:30 09/09/18 16:29 Albumin Human (Albuminar-5) 500 ml ONCE ONCE IV 08/15/18 13:00 08/15/18 13:01 Allopurinol (Zyloprim) 100 mg DAILY GT 08/16/18 09:00 09/13/18 08:59 Aspirin (Ecotrin) 81 mg DAILY ORAL 08/11/18 09:00 09/10/18 08:59 08/15/18 08:40 Atorvastatin Calcium (Lipitor) 10 mg BEDTIME ORAL 08/11/18 21:00 09/09/18 20:59 08/14/18 20:27 Ceftriaxone Sodium 1 gm/ Dextrose 55 ml @ 110 mls/hr Q24H IVPB 08/12/18 20:00 08/19/18 19:59 08/14/18 20:28 Chlorhexidine Gluconate (Rani-Hex 2%) 1 applic DAILY@2000 TOPIC 08/12/18 20:00 09/11/18 19:59 08/14/18 20:27 Clopidogrel Bisulfate (Plavix) 75 mg DAILY ORAL 08/11/18 09:00 09/10/18 08:59 08/15/18 08:40 Dextrose (Dextrose 50%) 25 ml Q30M PRN IV Hypoglycemia 08/13/18 15:45 09/12/18 15:44 Dextrose (Dextrose 50%) 50 ml Q30M PRN IV Hypoglycemia 08/13/18 15:45 09/12/18 15:44 Folic Acid (Folate) 5 mg DAILY ORAL 08/15/18 09:00 09/14/18 08:59 08/15/18 08:50 Haloperidol Lactate (Haldol) 2 mg Q4H PRN IM Agitation 08/12/18 16:00 09/11/18 15:59 Insulin Aspart (NovoLOG) Q6HR SUBQ 08/13/18 18:00 09/12/18 17:59 08/15/18 05:53 Lansoprazole (Prevacid) 30 mg BID GT 08/15/18 18:00 09/14/18 17:59 Midodrine (Pro-Amatine) 2.5 mg THREE TIMES A DAY GT 08/15/18 13:00 09/14/18 12:59 Potassium Chloride (K-Dur) 20 meq TWICE A DAY GT 08/15/18 18:00 09/14/18 17:59 Quetiapine Fumarate (SEROquel) 12.5 mg BID ORAL 08/12/18 16:00 09/11/18 15:59 08/15/18 08:40 Tramadol HCl (Ultram) 50 mg Q6H PRN ORAL severe pain 08/10/18 16:30 08/17/18 16:29 Jaylin Dickson MD Aug 15, 2018 12:48
[2018-08-15] MEDS ORDERED: Albumin Human 5% 500ml IV ONE (13:00)
--- NOTE | 2018-08-15 14:40 | NUR ---
*-* DISCHARGE PLANNED *-* PATIENT IS DISCHARGED TO: [facility] ROOM# 42-B T:[phone] FOR NURSE TO NURSE REPORT [facility] HAS BEEN ARRANGED FOR ICE CREAM MAN AT [address] [id number]
--- NOTE | 2018-08-15 15:22 | Infectious Diseases Prog Note ---
Assessment/Plan Problems: (1) Sepsis Assessment & Plan: with leukocytosis worse due to recent procedure , source most likely his UTI due to proteus mirabilis , continue ceftriaxone for 7 days , blood culture x2 is negative . (2) UTI (urinary tract infection) Assessment & Plan: on ceftriaxone for 7 days (3) FTT (failure to thrive) in adult Assessment & Plan: S/P PEG tube placement , dietitian is following (4) ARF (acute renal failure) Assessment & Plan: improving, continue IVF for hydration (5) Anemia, unspecified Assessment & Plan: monitor H/H , transfused as needed Subjective ROS Limited/Unobtainable: Yes Allergies: Coded Allergies: No Known Allergies (Unverified , 08/10/18) Subjective he was lying in bed, alert, not responsive, afebrile, not verbal , tolerated PEG tube feeding Objective Vital Signs Last 24 Hour Vital Signs Date Time Temp Pulse Resp B/P (MAP) Pulse Ox O2 Delivery O2 Flow Rate FiO2 08/15/18 09:00 Room Air 08/15/18 08:00 97.6 97 18 98/56 (70) 96 08/15/18 04:00 97.3 96 18 117/65 (82) 99 08/15/18 00:00 97.5 96 17 105/61 (76) 99 08/14/18 21:00 Room Air 08/14/18 20:00 97.6 105 18 94/63 (73) 99 08/14/18 16:00 97.3 98 18 90/53 (65) 97 Height (Feet): 5 Height (Inches): 6.00 Weight (Pounds): 114 General Appearance: WD/WN, no acute distress HEENT: normocephalic, atraumatic, anicteric, mucous membranes moist, PERRL, EOMI, pharynx normal, supple, no JVD Respiratory/Chest: chest wall non-tender, lungs clear, normal breath sounds, no respiratory distress, no accessory muscle use Cardiovascular: normal peripheral pulses, normal rate, regular rhythm, regularly irregular, no gallop/murmur, no JVD Abdomen: normal bowel sounds, soft, non tender, no organomegaly, non distended , no mass, no scars, other - PEG tube site looks good Extremities: no cyanosis, no clubbing Skin: no rash, no lesions, no ulcers Neurologic/Psychiatric: alert, unresponsiveness Lymphatic: no neck adenopathy, no groin adenopathy Musculoskeletal: normal muscle bulk, no effusion Laboratory Tests Test 08/15/18 06:15 White Blood Count 13.3 K/UL (4.8-10.8) H Red Blood Count 3.07 M/UL (4.70-6.10) L Hemoglobin 8.4 G/DL (14.2-18.0) L Hematocrit 26.8 % (42.0-52.0) L Mean Corpuscular Volume 87 FL (80-99) Mean Corpuscular Hemoglobin 27.3 PG (27.0-31.0) Mean Corpuscular Hemoglobin Concent 31.2 G/DL (32.0-36.0) L Red Cell Distribution Width 15.2 % (11.6-14.8) H Platelet Count 208 K/UL (150-450) Mean Platelet Volume 6.4 FL (6.5-10.1) L Neutrophils (%) (Auto) 70.2 % (45.0-75.0) Lymphocytes (%) (Auto) 24.3 % (20.0-45.0) Monocytes (%) (Auto) 4.3 % (1.0-10.0) Eosinophils (%) (Auto) 0.8 % (0.0-3.0) Basophils (%) (Auto) 0.5 % (0.0-2.0) Sodium Level 150 MMOL/L (136-145) H Potassium Level 3.5 MMOL/L (3.5-5.1) Chloride Level 119 MMOL/L (98-107) H Carbon Dioxide Level 19 MMOL/L (21-32) L Anion Gap 13 mmol/L (5-15) Blood Urea Nitrogen 33 mg/dL (7-18) H Creatinine 1.2 MG/DL (0.55-1.30) Estimat Glomerular Filtration Rate > 60 mL/min (>60) Glucose Level 118 MG/DL (74-106) H Uric Acid 7.1 MG/DL (2.6-7.2) Calcium Level 8.2 MG/DL (8.5-10.1) L Phosphorus Level 2.5 MG/DL (2.5-4.9) Magnesium Level 1.9 MG/DL (1.8-2.4) Total Bilirubin 0.5 MG/DL (0.2-1.0) Aspartate Amino Transf (AST/SGOT) 24 U/L (15-37) Alanine Aminotransferase (ALT/SGPT) 9 U/L (12-78) L Alkaline Phosphatase 80 U/L (46-116) Total Protein 7.1 G/DL (6.4-8.2) Albumin 1.9 G/DL (3.4-5.0) L Globulin 5.2 g/dL Albumin/Globulin Ratio 0.4 (1.0-2.7) L Current Medications Medications (Trade) Dose Ordered Sig/Jennifer Route PRN Reason Start Time Stop Time Status Last Admin Dose Admin Acetaminophen (Tylenol) 500 mg Q4H PRN ORAL Moderate Pain (Pain Scale 4-6) 08/10/18 16:30 09/09/18 16:29 Allopurinol (Zyloprim) 100 mg DAILY GT 08/16/18 09:00 09/13/18 08:59 Aspirin (Ecotrin) 81 mg DAILY ORAL 08/11/18 09:00 09/10/18 08:59 08/15/18 08:40 Atorvastatin Calcium (Lipitor) 10 mg BEDTIME ORAL 08/11/18 21:00 09/09/18 20:59 08/14/18 20:27 Ceftriaxone Sodium 1 gm/ Dextrose 55 ml @ 110 mls/hr Q24H IVPB 08/12/18 20:00 08/19/18 19:59 08/14/18 20:28 Chlorhexidine Gluconate (Rani-Hex 2%) 1 applic DAILY@2000 TOPIC 08/12/18 20:00 09/11/18 19:59 08/14/18 20:27 Clopidogrel Bisulfate (Plavix) 75 mg DAILY ORAL 08/11/18 09:00 09/10/18 08:59 08/15/18 08:40 Dextrose (Dextrose 50%) 25 ml Q30M PRN IV Hypoglycemia 08/13/18 15:45 09/12/18 15:44 Dextrose (Dextrose 50%) 50 ml Q30M PRN IV Hypoglycemia 08/13/18 15:45 09/12/18 15:44 Folic Acid (Folate) 5 mg DAILY ORAL 08/15/18 09:00 09/14/18 08:59 3/21/19 08:50 Haloperidol Lactate (Haldol) 2 mg Q4H PRN IM Agitation 08/12/18 16:00 09/11/18 15:59 Insulin Aspart (NovoLOG) Q6HR SUBQ 08/13/18 18:00 09/12/18 17:59 08/15/18 13:21 Lansoprazole (Prevacid) 30 mg BID GT 08/15/18 18:00 09/14/18 17:59 Midodrine (Pro-Amatine) 2.5 mg THREE TIMES A DAY GT 08/15/18 13:00 09/14/18 12:59 08/15/18 14:22 Potassium Chloride (K-Dur) 20 meq TWICE A DAY GT 08/15/18 18:00 09/14/18 17:59 Quetiapine Fumarate (SEROquel) 12.5 mg BID ORAL 08/12/18 16:00 09/11/18 15:59 08/15/18 08:40 Tramadol HCl (Ultram) 50 mg Q6H PRN ORAL severe pain 08/10/18 16:30 08/17/18 16:29 Robert Massey M.D. Aug 15, 2018 15:22
--- NOTE | 2018-08-15 17:13 | NUR ---
NURSE NOTES: given report to [facility]. spoke to SARAH lopez. picker/puller time @1800.
--- NOTE | 2018-08-15 18:26 | NUR ---
NURSE NOTES: patient discharged to [facility] via ambulance with fair condition. no respiratory distress noted. no c/o pain at this time. keep picc line on rt upper arm d/t cont Atb treatment. keep F/C. SNF made aware. removed ID band. discharge packet provided
[2018-08-15] MEDS ORDERED: 1/2 NS 1000ml IV ONE (18:29)
[2018-08-15] MEDS ORDERED: Tubing IV Secondary IV ONE (18:29)
--- NOTE | 2018-08-15 18:44 | Internal Med Progress Note ---
Subjective Date of Service: Aug 15, 2018 Physician Name Darrick Stout Attending Physician Yannick Marshall MD Current Medications Medications (Trade) Dose Ordered Sig/Jennifer Route PRN Reason Start Time Stop Time Status Last Admin Dose Admin Acetaminophen (Tylenol) 500 mg Q4H PRN ORAL Moderate Pain (Pain Scale 4-6) 08/10/18 16:30 09/09/18 16:29 Allopurinol (Zyloprim) 100 mg DAILY GT 08/16/18 09:00 09/13/18 08:59 Aspirin (Ecotrin) 81 mg DAILY ORAL 08/11/18 09:00 09/10/18 08:59 08/15/18 08:40 Atorvastatin Calcium (Lipitor) 10 mg BEDTIME ORAL 08/11/18 21:00 09/09/18 20:59 08/14/18 20:27 Ceftriaxone Sodium 1 gm/ Dextrose 55 ml @ 110 mls/hr Q24H IVPB 08/12/18 20:00 08/19/18 19:59 08/14/18 20:28 Chlorhexidine Gluconate (Rani-Hex 2%) 1 applic DAILY@2000 TOPIC 08/12/18 20:00 09/11/18 19:59 08/14/18 20:27 Clopidogrel Bisulfate (Plavix) 75 mg DAILY ORAL 08/11/18 09:00 09/10/18 08:59 08/15/18 08:40 Dextrose (Dextrose 50%) 25 ml Q30M PRN IV Hypoglycemia 08/13/18 15:45 09/12/18 15:44 Dextrose (Dextrose 50%) 50 ml Q30M PRN IV Hypoglycemia 08/13/18 15:45 09/12/18 15:44 Folic Acid (Folate) 5 mg DAILY ORAL 08/15/18 09:00 09/14/18 08:59 08/15/18 08:50 Haloperidol Lactate (Haldol) 2 mg Q4H PRN IM Agitation 08/12/18 16:00 09/11/18 15:59 Insulin Aspart (NovoLOG) Q6HR SUBQ 08/13/18 18:00 09/12/18 17:59 08/15/18 13:21 Lansoprazole (Prevacid) 30 mg BID GT 08/15/18 18:00 09/14/18 17:59 Midodrine (Pro-Amatine) 2.5 mg THREE TIMES A DAY GT 08/15/18 13:00 09/14/18 12:59 08/15/18 14:22 Potassium Chloride (K-Dur) 20 meq TWICE A DAY GT 08/15/18 18:00 09/14/18 17:59 Quetiapine Fumarate (SEROquel) 12.5 mg BID ORAL 08/12/18 16:00 09/11/18 15:59 08/15/18 08:40 Tramadol HCl (Ultram) 50 mg Q6H PRN ORAL severe pain 08/10/18 16:30 08/17/18 16:29 Allergies: Coded Allergies: No Known Allergies (Unverified , 08/10/18) ROS Limited/Unobtainable: Yes Subjective 67 YO M admitted with decreased oral intake. Now acute renal failure and UTI. Cover for Int Med-Dr marshall Objective Last Vital Signs Date Time Temp Pulse Resp B/P (MAP) Pulse Ox O2 Delivery O2 Flow Rate FiO2 08/15/18 09:00 Room Air 08/15/18 08:00 97.6 97 18 98/56 (70) 96 08/13/18 13:31 3 08/10/18 04:01 98 Laboratory Tests Test 08/15/18 06:15 White Blood Count 13.3 K/UL (4.8-10.8) H Red Blood Count 3.07 M/UL (4.70-6.10) L Hemoglobin 8.4 G/DL (14.2-18.0) L Hematocrit 26.8 % (42.0-52.0) L Mean Corpuscular Volume 87 FL (80-99) Mean Corpuscular Hemoglobin 27.3 PG (27.0-31.0) Mean Corpuscular Hemoglobin Concent 31.2 G/DL (32.0-36.0) L Red Cell Distribution Width 15.2 % (11.6-14.8) H Platelet Count 208 K/UL (150-450) Mean Platelet Volume 6.4 FL (6.5-10.1) L Neutrophils (%) (Auto) 70.2 % (45.0-75.0) Lymphocytes (%) (Auto) 24.3 % (20.0-45.0) Monocytes (%) (Auto) 4.3 % (1.0-10.0) Eosinophils (%) (Auto) 0.8 % (0.0-3.0) Basophils (%) (Auto) 0.5 % (0.0-2.0) Sodium Level 150 MMOL/L (136-145) H Potassium Level 3.5 MMOL/L (3.5-5.1) Chloride Level 119 MMOL/L (98-107) H Carbon Dioxide Level 19 MMOL/L (21-32) L Anion Gap 13 mmol/L (5-15) Blood Urea Nitrogen 33 mg/dL (7-18) H Creatinine 1.2 MG/DL (0.55-1.30) Estimat Glomerular Filtration Rate > 60 mL/min (>60) Glucose Level 118 MG/DL (74-106) H Uric Acid 7.1 MG/DL (2.6-7.2) Calcium Level 8.2 MG/DL (8.5-10.1) L Phosphorus Level 2.5 MG/DL (2.5-4.9) Magnesium Level 1.9 MG/DL (1.8-2.4) Total Bilirubin 0.5 MG/DL (0.2-1.0) Aspartate Amino Transf (AST/SGOT) 24 U/L (15-37) Alanine Aminotransferase (ALT/SGPT) 9 U/L (12-78) L Alkaline Phosphatase 80 U/L (46-116) Total Protein 7.1 G/DL (6.4-8.2) Albumin 1.9 G/DL (3.4-5.0) L Globulin 5.2 g/dL Albumin/Globulin Ratio 0.4 (1.0-2.7) L Intake and Output 08/14/18 08/15/18 19:00 07:00 Intake Total 2125.0 ml 1205 ml Output Total 500 ml Balance 1625.0 ml 1205 ml Intake Free Water 300 ml 100 ml IV Total 1185.0 ml 500 ml Tube Feeding 640 ml 605 ml Output Urine Total 500 ml Objective Objective GENERAL: The patient is awake and responsive, but not verbal. HEAD AND NECK: Pupils equal and reactive to light. Extraocular movements intact. NECK: Supple. No JVD. LUNGS: air entry, poor inspiratory effort. No wheeze or rhonchi. HEART: S1, S2. Distant heart sounds. No murmur or gallops. ABDOMEN: Soft, nondistended, nontender. Positive bowel sounds. : Pelayo cath EXTREMITIES: No cyanosis or clubbing. The patient has bilateral AKA, contracted. NEUROLOGIC: Cranial nerves II through XII are grossly intact. The patient is moving all the extremities spontaneously. Gait was not assessed due to the patient's status. Assessment/Plan Assessment/Plan Assessment/Plan Assessment/Plan Assessment/Plan ASSESSMENT: 1. Acute kidney injury on chronic renal insufficiency. 2. Failure to thrive. 3. Severe dehydration. 4. Decreased oral intake s/p PEG (08/13/2017). 5. Diabetes type 2. 6. Status post bilateral lower extremity AKA. 7. Hypertension, presently normotensive. 8. Advanced dementia. 9. Prior history of stroke x2. 10. Ex-smoker. 11. History of alcohol abuse. 12. History of heroin abuse. 13. Severe protein-calorie malnutrition. 14. Porteous mirabilis UTI. PLAN: Broad-spectrum antibiotic: Rocephin. Monitor cultures and laboratory. IV hydration Accu-Chek with sliding scale. Code status: Full Code DVT prophylaxis: heparin subcutaneous. Discussed with Dr. Dickson from Pulmonary/Critical Care and Dr. Cagle from Nephrology. Continue on the tube feeding. Discharge planning to SNF. Darrick Stout MD Aug 15, 2018 18:44
[2018-08-16] MEDS ORDERED: Allopurinol 100mg Tab GT SCH (09:00)
--- NOTE | 2018-08-16 11:06 | Discharge Summary ---
Discharge Summary Discharge Summary _ DATE OF ADMISSION: 08/10/2018 DATE OF DISCHARGE: 08/15/2018 ATTENDING MD: Dr. Yannick Marshall DISCHARGED BY: Dr. Jaylin Dickson CONSULTANTS: Dr. Jaylin Loya [facility] COURSE: Patient is a 67-year-old -[place] gentleman, with past medical history significant for bilateral BKA due to gangrene and ulcer of the foot, history of DVT of the lower extremity, sepsis, diabetes type 2, hypertension, history of stroke twice in April 2016 as well as on October 2016, history of dysphasia, advanced dementia, prior history of smoking, alcohol abuse and heroin abuse, who presented to the hospital from [facility] after he was found to have worsening of renal function. He was noted to have altered mental status with decreased appetite. There was 5 pound weight loss in the last month. On evaluation at ED, vital signs were on the low side, although stable. Blood work showed CBC 18, hemoglobin 12, hematocrit 37. Sodium and potassium were normal. Chloride was elevated to 110, BUN 107, creatinine 3.1. Urinalysis showed 3+ protein, 5+ blood, negative nitrite, 3+ leukocyte esterase, too many to count WBC, too many to count RBC. He was given IV fluid. He was given IV cefepime. He was then admitted to medical floor for evaluation of acute kidney injury, failure to thrive, severe dehydration, and decreased oral intake. He was given IV hydration. He was continued on broad-spectrum antibiotic Rocephin, pending culture results. He was placed on heparin for DVT prophylaxis. ID was consulted. Ceftriaxone was switched to cefepime. Patient was uncooperative and was refusing IV. He was given Seroquel and was placed on Haldol as needed. Anemia workup showed low iron and percent saturation. Ferritin was elevated. He had normal B12 however, deficient folate. Patient failed swallow evaluation. On 08/13/2018, she underwent EGD with PEG tube placement. Urine culture showed growth of Proteus mirabilis, sensitive to Ceftriaxone. Culture did not isolate any growth. She was tolerating tube feeding. She was discharged back to longterm to continue with 3 more days of antibiotics. FINAL DIAGNOSES: Acute kidney injury on chronic renal insufficiency Failure to thrive with severe protein calorie malnutrition Proteus mirabilis UTI Severe dehydration Decreased p.o. intake status post PEG (08/13/2018) Type 2 diabetes Status post bilateral lower extremity AKA Hypertension Advanced dementia Old stroke Ex smoker History of alcohol abuse Sepsis with leukocytosis, source most likely UTI due to Proteus mirabilis Anemia, unspecified History of heroin abuse DISPOSITION: Patient was discharged to a SNF. DISCHARGE MEDICATIONS: Refer to Discharge Medication List. I have been assigned to complete a discharge summary on this account, I was not involved with the patient's management. Santa James NP Aug 16, 2018 11:06
== END 2018-08-15 18:30 | DRG 871 ==
LOC: EDBD 04:00 → EMR 05:22 → 4E 05:33 → EDBEDREQ 08:04 → 4E 08-12 12:08
PROC: 0DB78ZX Excision of Stomach, Pylorus, Via Natural or Artificial Opening Endoscopic, Diagnostic (ICD-10-PCS; principal; 2018-08-13 12:43)
PROC: 02HV33Z Insertion of Infusion Device into Superior Vena Cava, Percutaneous Approach (ICD-10-PCS; principal; 2018-08-13 12:43)
PROC: 0DH63UZ Insertion of Feeding Device into Stomach, Percutaneous Approach (ICD-10-PCS; principal; 2018-08-13 12:43)
DX: A41.9 Sepsis, unspecified organism (principal); E43 Unspecified severe protein-calorie malnutrition; N17.9 Acute kidney failure, unspecified; N39.0 Urinary tract infection, site not specified; I12.9 Hypertensive chronic kidney disease with stage 1 through stage 4 chronic kidney disease, or unspecified chronic kidney disease; N18.9 Chronic kidney disease, unspecified; E86.0 Dehydration; E11.21 Type 2 diabetes mellitus with diabetic nephropathy; Z86.73 Personal history of transient ischemic attack (TIA), and cerebral infarction without residual deficits; F03.90 Unspecified dementia, unspecified severity, without behavioral disturbance, psychotic disturbance, mood disturbance, and anxiety; Z87.891 Personal history of nicotine dependence; R62.7 Adult failure to thrive; F10.21 Alcohol dependence, in remission; F11.21 Opioid dependence, in remission; Z89.512 Acquired absence of left leg below knee; Z89.511 Acquired absence of right leg below knee; R13.10 Dysphagia, unspecified; D50.9 Iron deficiency anemia, unspecified; I73.9 Peripheral vascular disease, unspecified; B96.4 Proteus (mirabilis) (morganii) as the cause of diseases classified elsewhere; Z68.21 Body mass index [BMI] 21.0-21.9, adult
CPT/HCPCS: 36415; 36569; 71045; 76937; 80048; 80053; 80061; 80076; 81001; 82248; 82533; 82607; 82728; 82746; 82962; 82977; 83036; 83540; 83550; 83690; 83735; 83880; 84100; 84443; 84484; 84550; 85007; 85025; 85610; 85730; 86140; 87040; 87081; 87086; 87181; 94003; 94150; 96361; 96365; 99285; J1815; J2250

== ENCOUNTER 2018-09-23 17:09 | Inpatient (IN) | payer OTHER ==
[~2018-09-23] VITALS: Ht 121.9 cm; Wt 40.8 kg
[~2018-09-23 17:09] MED LIST: ACETAMINOPHEN325 M1 ORAL; ALLOPURINOL100 M1 GT; ASPIR 8181 MG ORAL; ATORVASTATIN CA80 MG ORAL; CEFTRIAXON1 GM/50 ML IV; DOCUSATE SODIU100 MG ORAL; EMERGEN-C 500500 MG PO; MEGESTROL ACETA40 MG PO; MELATONIN3 MG ORAL; MILK OF MA2400 MG/10 ORAL; PLAVIX75 MG ORAL; PRO-STAT LIQUID30 ML ORAL; SEROQUEL25 MG ORAL; TRAMADOL HCL50 MG ORAL
[2018-09-23 17:40] VITALS: BP 102/64
--- NOTE | 2018-09-23 17:40 | NUR ---
ED Nurse Note: pt brought in by ambulance from [facility], c/c abnormal lab, per EMS report wbc was elevated. Pt nonverbal, noted sinus tach, warm to touch, tachypnea, o2 =2L via NC, noted gtube, noted redness, possible stg 1 wound on sacral area, noted packed wound on left leg, noted NICOLETTE ambutation. rectal temp 101.5, ERMD notified, received order for 650mg tylenol rectal. will cont monitor.
[2018-09-23 18:00] LABS: BILIRUBIN, URINE NEGATIVE (NEGATIVE); COLOR,URINE PALE YELLOW; GLUCOSE, URINE (UA) NEGATIVE (NEGATIVE); KETONES,URINE NEGATIVE (NEGATIVE); LEUKOCYTE ESTERASE ,URINE 3+ (NEGATIVE); NITRITE,URINE NEGATIVE (NEGATIVE); PH,URINE 8 (4.5-8.0); PROTEIN,URINE 3+ (NEGATIVE); UROBILINOGEN,URINE NORMAL MG/DL (0.0-1.0)
[2018-09-23 18:02] LABS: HEMATOCRIT 43.7 % (42.0-52.0); HEMOGLOBIN 13.2 G/DL (14.2-18.0); MEAN CORPUSCULAR VOLUME 94 FL (80-99); PLATELET COUNT 365 K/UL (150-450); RED BLOOD COUNT 4.64 M/UL (4.70-6.10)
[2018-09-23 18:08] LABS: APPEARANCE,URINE SLIGHTLY CLOUDY
--- NOTE | 2018-09-23 18:17 | Emergency Room Report ---
History of Present Illness General Chief Complaint: Abnormal Labs Source: Patient Present Illness HPI Patient persist with complaints of abnormal blood work including elevated white blood cell count patient upon initial arrival is tachycardic patient also himself is nonverbal cannot provide any information and put patient has bilateral [id number] amputations well unknown regarding fever patient does not have any obvious cause here however no obvious reports as well History of present illness remains limited as the patient is not able to provide any history Allergies: Coded Allergies: No Known Allergies (Unverified , 08/10/18) Patient History Past Medical History: see triage record Pertinent Family History: none Reviewed Nursing Documentation: PMH: Agreed; PSxH: Agreed Nursing Documentation-PMH Past Medical History: No History, Except For Hx Cardiac Problems: Yes Hx Hypertension: Yes Hx Diabetes: Yes Hx Cancer: No Hx Gastrointestinal Problems: Yes - dysphagia Review of Systems All Other Systems: negative except mentioned in HPI Physical Exam Vital Signs Date Time Temp Pulse Resp B/P (MAP) Pulse Ox O2 Delivery O2 Flow Rate FiO2 09/23/18 17:10 97.7 118 20 103/69 98 Nasal Cannula 4.0 Sp02 EP Interpretation: reviewed, normal General Appearance: mild distress Head: normocephalic, atraumatic Eyes: bilateral eye PERRL, bilateral eye EOMI ENT: dry mucus membranes Neck: full range of motion, supple Respiratory: lungs clear, no respiratory distress, no retraction Cardiovascular #1: tachycardia Gastrointestinal: non tender, soft Musculoskeletal: other - Bilateral [id number] amputations moves both upper extremities without focal deficit, Neurologic: responsive Skin: other - Patient is multiple scarring in the inguinal region bilaterally, upper chest and neck area as well Lymphatic: no adenopathy Procedures Critical Care Time Critical Care Time 50 minutes for multiple re-evaluations initial critical presentation speaking to O physician concern for acute respiratory arrest not including any procedural time Medical Decision Making Diagnostic Impression: Primary Impression: Sepsis Additional Impression: UTI (urinary tract infection) ER Course Patient presents tachycardic and febrile Appears in critical condition IV hydration initiated antibiotics patient's white blood cell count is 22,000 Kidney function is also elevated with elevated potassium Patient maintaining appropriate blood pressure Please note that 2 different attempts were made at Central line placement patient has significant scarring in the right femoral region after 2 separate attempts in full sterile precaution the procedure was aborted. One attempt was made in the right internal jugular region however after cannulating the artery the needle was removed and pressure was applied with appropriate compression. The attempt at this area was also terminated patient had IV access established, At this time requires admission and further inpatient care Labs Test 09/23/18 17:35 09/23/18 19:53 White Blood Count 22.0 K/UL (4.8-10.8) Red Blood Count 4.64 M/UL (4.70-6.10) Hemoglobin 13.2 G/DL (14.2-18.0) Hematocrit 43.7 % (42.0-52.0) Mean Corpuscular Volume 94 FL (80-99) Mean Corpuscular Hemoglobin 28.5 PG (27.0-31.0) Mean Corpuscular Hemoglobin Concent 30.2 G/DL (32.0-36.0) Red Cell Distribution Width 17.0 % (11.6-14.8) Platelet Count 365 K/UL (150-450) Mean Platelet Volume 6.3 FL (6.5-10.1) Neutrophils (%) (Auto) % (45.0-75.0) Lymphocytes (%) (Auto) % (20.0-45.0) Monocytes (%) (Auto) % (1.0-10.0) Eosinophils (%) (Auto) % (0.0-3.0) Basophils (%) (Auto) % (0.0-2.0) Differential Total Cells Counted 100 Neutrophils % (Manual) 73 % (45-75) Lymphocytes % (Manual) 17 % (20-45) Monocytes % (Manual) 4 % (1-10) Eosinophils % (Manual) 0 % (0-3) Basophils % (Manual) 0 % (0-2) Band Neutrophils 6 % (0-8) Platelet Estimate Adequate Platelet Morphology Normal Red Blood Cell Morphology Normal Anisocytosis Urine Color Pale yellow Urine Appearance Slightly cloudy Urine pH 8 (4.5-8.0) Urine Specific [place] 1.010 (1.005-1.035) Urine Protein 3+ (NEGATIVE) Urine Glucose (UA) Negative (NEGATIVE) Urine Ketones Negative (NEGATIVE) Urine Blood 5+ (NEGATIVE) Urine Nitrite Negative (NEGATIVE) Urine Bilirubin Negative (NEGATIVE) Urine Urobilinogen Normal MG/DL (0.0-1.0) Urine Leukocyte Esterase 3+ (NEGATIVE) Urine RBC 10-15 /HPF (0 - 0) Urine WBC 20-30 /HPF (0 - 0) Urine Squamous Epithelial Cells None /LPF (NONE/OCC) Urine Amorphous Sediment Few /LPF (NONE) Urine Bacteria Moderate /HPF (NONE) Sodium Level 169 MMOL/L (136-145) Potassium Level 5.5 MMOL/L (3.5-5.1) Chloride Level 130 MMOL/L (98-107) Carbon Dioxide Level 31 MMOL/L (21-32) Anion Gap 8 mmol/L (5-15) Blood Urea Nitrogen 162 mg/dL (7-18) Creatinine 2.9 MG/DL (0.55-1.30) Estimat Glomerular Filtration Rate 26.3 mL/min (>60) Glucose Level 174 MG/DL (74-106) Lactic Acid Level 3.30 mmol/L (0.4-2.0) 2.90 mmol/L (0.66-2.22) Calcium Level 9.3 MG/DL (8.5-10.1) Total Bilirubin 0.2 MG/DL (0.2-1.0) Aspartate Amino Transf (AST/SGOT) 38 U/L (15-37) Alanine Aminotransferase (ALT/SGPT) 37 U/L (12-78) Alkaline Phosphatase 180 U/L (46-116) Total Creatine Kinase 45 U/L (26-308) Creatine Kinase MB 0.5 NG/ML (0.0-3.6) Creatine Kinase MB Relative Index 1.1 Troponin I 0.051 ng/mL (0.000-0.056) Pro-B-Type Natriuretic Peptide 2209 pg/mL (0-125) Total Protein 9.8 G/DL (6.4-8.2) Albumin 2.3 G/DL (3.4-5.0) Globulin 7.5 g/dL Albumin/Globulin Ratio 0.3 (1.0-2.7) Lipase 163 U/L (73-393) Rhythm Strip Diag. Results EP Interpretation: yes Rate: 110 Rhythm: no PVC's, no ectopy, other - Sinus tach Chest X-Ray Diagnostic Results Chest X-Ray Diagnostic Results : Chest X-Ray Ordered: Yes # of Views/Limited/Complete: 1 View Indication: Shortness of Breath EP Interpretation: Yes Interpretation: no consolidation, no effusion, no pneumothorax, other - Left lower atelectasis Impression: No acute disease Electronically Signed by: Marcelina Fuller DO Last Vital Signs Date Time Temp Pulse Resp B/P (MAP) Pulse Ox O2 Delivery O2 Flow Rate FiO2 09/23/18 17:10 97.7 118 20 103/69 98 Nasal Cannula 4.0 Status: improved Disposition: ADMITTED INPATIENT Condition: Critical Referrals: Yannick Marshall MD (PCP) Marcelina Fuller DO Sep 23, 2018 18:17
[2018-09-23 18:21] LABS: ALANINE AMINOTRANSFERASE 37 U/L (12-78); ALBUMIN 2.3 G/DL (3.4-5.0); ALBUMIN/GLOBULIN RATIO 0.3 (1.0-2.7); ALKALINE PHOSPHATASE 180 U/L (46-116); ANION GAP 8 mmol/L (5-15); ASPARTATE AMINO TRANSFERASE 38 U/L (15-37); BILIRUBIN,TOTAL 0.2 MG/DL (0.2-1.0); BLOOD UREA NITROGEN 162 mg/dL (7-18); CALCIUM 9.3 MG/DL (8.5-10.1); CARBON DIOXIDE 31 MMOL/L (21-32); CHLORIDE 130 MMOL/L (98-107); CKMB 0.5 NG/ML (0.0-3.6); CREATINE KINASE 45 U/L (26-308); CREATININE 2.9 MG/DL (0.55-1.30); POTASSIUM 5.5 MMOL/L (3.5-5.1)
[2018-09-23 18:27] LABS: SODIUM 169 MMOL/L (136-145)
[2018-09-23] MEDS ORDERED: cefTRIAXone 1 GM in NS 55 ML IVPB ONE ×2 (18:30→19:45)
[2018-09-23 18:40] VITALS: BP 121/77
--- NOTE | 2018-09-23 18:40 | NUR ---
ED Nurse Note: unable to insert iv after multiple attempts, ERMD notified.
[2018-09-23] MEDS ORDERED: Acetaminophen 650 MG SUPP RECTAL ONE ×2 (18:42→18:45)
--- NOTE | 2018-09-23 19:00 | NUR ---
ED Nurse Note: PT VOID X 1 AND BM X1, PT CLEANED AND CHANGED INTO NEW GOWN.
[2018-09-23] MEDS ORDERED: Lidocaine 1% 10mg/ml/Epi 0.005mg/ml 30ml vial INJ ONE (19:01)
--- NOTE | 2018-09-23 19:20 | NUR ---
ED Nurse Note: called lab for lactic reflex
[2018-09-23 19:40] VITALS: BP 107/71
[2018-09-23] MEDS ORDERED: Morphine Sulfate 4mg/ml Inj (IV USE ONLY) IVP PRN (20:00)
[2018-09-23] MEDS ORDERED: Nitroglycerin Subl 0.4mg tab SL PRN (20:00)
[2018-09-23] MEDS ORDERED: Miralax 17gm pkt ORAL PRN (20:00)
[2018-09-23] MEDS ORDERED: Albuterol/Ipratropium 3ml neb HHN PRN (20:00)
--- NOTE | 2018-09-23 20:00 | NUR ---
ED Nurse Note: received verbal order for iv insertion on left scalp, verified with ermd, 24g iv inserted left scal, patent and intact.
--- NOTE | 2018-09-23 20:30 | NUR ---
ED Nurse Note: PT CLEANED AND CHANGED INTO NEW GOWN.
[2018-09-23 20:40] VITALS: BP 109/77
[2018-09-23] MEDS: Heparin 5000 units/ml inj SUBQ SCH (21:00)
--- NOTE | 2018-09-23 21:24 | NUR ---
ED Nurse Note: REPORT GIVEN TO SARAH ROQUE.
--- NOTE | 2018-09-23 21:40 | NUR ---
ED Nurse Note: PT TRANSFERRED TO TELE, ALL BELONGINGS SENT W/ PT, ENDORSED CARE TO JUDE SMITH.
[2018-09-23] MEDS ORDERED: Vancomycin 750mg/NS 275ml IVPB SCH ×2 (22:00)
[2018-09-23] MEDS ORDERED: Cefepime HCl 2 GM in D5W 110 ML IV SCH (22:00)
--- NOTE | 2018-09-23 22:15 | NUR ---
NURSE NOTES: Received report from Kristi ED RN. Pt came via poonam w/o incident. Belonging checked and chlorine cell tender was applied. ST 110, w/ PVCs. Afebrile. IV is at L. Scalp 24G was applied in ED, patent. Dressing are applied on B. Knee, B. AKA. Redness noted in sacral area and L. Knee, the amputated site. Pt is non verbal, and is able to respond to Yes-No questions by nodding and shaking his head. No distress noted in 2L NC. Addendum: 09/23/18 at 2310 by JUDE SALCEDO RN Admission order was input by Dr. Dickson. Will follow plans of care.
[2018-09-23 22:20] VITALS: BP 99/62
[2018-09-23 23:00] VITALS: BP 99/62
--- NOTE | 2018-09-23 23:11 | NUR ---
NURSE NOTES: SVT 168 in the monitor and went back to SR 96 . BP 96/68, RR 18. T 96 AX. No SOB noted. CN made aware.
[2018-09-24] VITALS (7 sets, daily range): BP systolic 82–122; BP diastolic 42–68
[2018-09-24] MEDS ORDERED: Vancomycin 1 GM in D5W 275 ML IV SCH (00:30)
--- NOTE | 2018-09-24 03:29 | NUR ---
NURSE NOTES: Pt is resting w/o distress in 2L NC. SR in the monitor.
--- NOTE | 2018-09-24 07:55 | NUR ---
HAND-OFF: Report given to Jennifer Moulton RN. Endorsed that BP 88/59 in the morning was reported. Dr. Marshall ordered 1/2 NS @75ml/h, Insulin in sliding scale, GT feeding of Glucerna 1.5, 50ml/h. Also reported to Dr. Marshall for Na 169, K. 5.5, BUN 162, Cr. 2.9, WBC 22. Order were placed.
[2018-09-24 08:13] LABS: BASOPHILS % (AUTO) 0.3 % (0.0-2.0); EOSINOPHILS % (AUTO) 0.1 % (0.0-3.0); HEMATOCRIT 35.9 % (42.0-52.0); HEMOGLOBIN 10.7 G/DL (14.2-18.0); LYMPHOCYTES % (AUTO) 16.1 % (20.0-45.0); MEAN CORPUSCULAR VOLUME 96 FL (80-99); NEUTROPHILS % (AUTO) 79.6 % (45.0-75.0); PLATELET COUNT 319 K/UL (150-450); RED BLOOD COUNT 3.73 M/UL (4.70-6.10); RED CELL DISTRIBUTION WIDTH 17.9 % (11.6-14.8); WHITE BLOOD COUNT 17.2 K/UL (4.8-10.8)
[2018-09-24 08:45] LABS: ALANINE AMINOTRANSFERASE 34 U/L (12-78); ALBUMIN 1.9 G/DL (3.4-5.0); ALBUMIN/GLOBULIN RATIO 0.3 (1.0-2.7); ALKALINE PHOSPHATASE 137 U/L (46-116); ANION GAP 12 mmol/L (5-15); ASPARTATE AMINO TRANSFERASE 35 U/L (15-37); BILIRUBIN,TOTAL 0.2 MG/DL (0.2-1.0); BLOOD UREA NITROGEN 124 mg/dL (7-18); CALCIUM 8.6 MG/DL (8.5-10.1); CARBON DIOXIDE 27 MMOL/L (21-32); CHLORIDE 140 MMOL/L (98-107); CREATININE 1.9 MG/DL (0.55-1.30)
[2018-09-24 08:53] LABS: SODIUM 179 MMOL/L (136-145)
--- NOTE | 2018-09-24 08:57 | NUR ---
CASE MANAGEMENT:REVIEW 67 YR OLD MALE BIBA FROM [facility] CC: ABNORMAL LABS. K+5.9 WBC+20.7 PMH: OZZY AKA. HTN. DM. DYSPHAGIA SI: SEPSIS.UTI 101.5 118 20 103/69 98% ON 4L/NC WBC+22.0 NA+169 K+5.5 BUN+162 CR+2.9 IS: 1L NS BOLUS IV ROCEPHIN IV VANCOMYCIN IV CEFEPIME TYLENOL AK CHEST XRAY : TO TELEMETRY DCP: RETURN TO [facility] INTERQUAL CRITERIA MET
[2018-09-24] MEDS ORDERED: Allopurinol 100mg Tab GT SCH (09:00)
[2018-09-24] MEDS: Heparin 5000 units/ml inj SUBQ SCH ×2 (09:55→20:36)
[2018-09-24] MEDS ORDERED: Cefepime 500mg in D5W 55ml IVPB SCH (10:00)
--- NOTE | 2018-09-24 10:00 | NUR ---
NURSE NOTES: Dr. Cagle made a round. Bladder scan checked and 0 cc of residual urine check in bladder scan. Ordered to continue the condor cath.
--- NOTE | 2018-09-24 10:27 | Consultation ---
History of Present Illness General Date patient seen: Sep 24, 2018 Chief Complaint: Abnormal Labs Present Illness HPI 67 year old male with hx of dementia, bilateral AKA, Gtube, long-term resident brought in by paramedics b/o persistent elevated white blood cell count. He was upon initial in ER tachycardic. He is nonverbal cannot provide any information. He was febrile and was in ATN. Pt is admitted to telemetry for further management. Allergies: Coded Allergies: No Known Allergies (Unverified , 08/10/18) Medication History Scheduled Allopurinol* (Allopurinol*), 100 MG GT DAILY Amino Acids/Protein Hydrolys (Pro-Stat Liquid), 30 ML ORAL TWICE A DAY, ( Reported) Aspirin* (Aspir 81*), 81 MG ORAL DAILY, (Reported) Atorvastatin Calcium* (Lipitor*), 80 MG ORAL BEDTIME, (Reported) Ceftriaxone Na/Dextrose,Iso (Ceftriaxone 1 Gm Piggyback), 1 GM IV DAILY Clopidogrel Bisulfate* (Plavix*), 75 MG ORAL DAILY, (Reported) Docusate Sodium* (Docusate Sodium*), 100 MG ORAL TWICE A DAY, (Reported) Magnesium Hydroxide* (Milk Of Magnesia*), 30 ML ORAL DAILY, (Reported) Quetiapine Fumarate* (Seroquel*), 12.5 MG ORAL BID Scheduled PRN Acetaminophen* (Acetaminophen 325MG Tablet*), 500 MG ORAL Q4H PRN for Moderate Pain (Pain Scale 4-6), (Reported) Melatonin (Melatonin), 4 MG ORAL BEDTIME PRN for Insomnia, (Reported) Tramadol Hcl* (Ultram*), 50 MG ORAL Q6H PRN for For Pain, (Reported) Miscellaneous Medications Megestrol Acetate (Megestrol Acetate), 40 MG PO, (Reported) Vit C/Ascorb Sod/Multivit-Min (Emergen-C 500 mg Chewable Tab), 500 MG PO, ( Reported) Patient History Healthcare decision maker Resuscitation status Full Code Advanced Directive on File No Past Medical/Surgical History Past Medical/Surgical History: (1) Alzheimer's dementia (2) Feeding by G-tube (3) S/P AKA (above knee amputation) bilateral (4) DM (5) CVA (cerebral vascular accident) Review of Systems All Other Systems: negative except mentioned in HPI Physical Exam General Appearance: WD/WN Lines, tubes and drains: peripheral HEENT: normocephalic, atraumatic Neck: non-tender, normal alignment Respiratory/Chest: chest wall non-tender, lungs clear Breasts: no masses Cardiovascular/Chest: normal peripheral pulses, normal rate Abdomen: normal bowel sounds, non tender Skin Exam: normal pigmentation Last 24 Hour Vital Signs Date Time Temp Pulse Resp B/P (MAP) Pulse Ox O2 Delivery O2 Flow Rate FiO2 09/24/18 09:26 98 Nasal Cannula 2.0 28 09/24/18 09:26 73 18 Nasal Cannula 2.0 28 09/24/18 09:26 Nasal Cannula 2.0 28 09/24/18 08:00 96.8 20 88/55 (66) 97 09/24/18 04:18 83 09/24/18 04:00 96.6 85 18 88/59 (69) 95 09/24/18 02:33 Nasal Cannula 2.0 09/24/18 00:00 96.0 104 18 96/68 (77) 100 09/23/18 23:52 103 09/23/18 22:20 96.9 106 18 99/62 (74) 100 09/23/18 21:40 100.8 108 38 123/77 100 Nasal Cannula 2.0 09/23/18 20:40 100.8 108 38 109/77 100 Nasal Cannula 2.0 09/23/18 19:40 101.5 118 38 107/71 100 Nasal Cannula 2.0 09/23/18 19:15 100.8 09/23/18 18:40 101.5 116 38 121/77 100 Nasal Cannula 2.0 09/23/18 18:00 118 38 Nasal Cannula 2.0 09/23/18 17:40 101.5 118 38 102/64 100 Nasal Cannula 2.0 09/23/18 17:10 97.7 118 20 103/69 98 Nasal Cannula 4.0 Intake and Output 09/23/18 09/24/18 18:59 06:59 Output Total 550 ml Balance -550 ml Output Urine Total 550 ml # Voids 2 2 # Bowel Movements 1 Laboratory Tests Test 09/23/18 17:35 09/23/18 19:53 09/24/18 07:40 White Blood Count 22.0 K/UL (4.8-10.8) H 17.2 K/UL (4.8-10.8) H Red Blood Count 4.64 M/UL (4.70-6.10) L 3.73 M/UL (4.70-6.10) L Hemoglobin 13.2 G/DL (14.2-18.0) L 10.7 G/DL (14.2-18.0) L Hematocrit 43.7 % (42.0-52.0) 35.9 % (42.0-52.0) L Mean Corpuscular Volume 94 FL (80-99) 96 FL (80-99) Mean Corpuscular Hemoglobin 28.5 PG (27.0-31.0) 28.8 PG (27.0-31.0) Mean Corpuscular Hemoglobin Concent 30.2 G/DL (32.0-36.0) L 29.8 G/DL (32.0-36.0) L Red Cell Distribution Width 17.0 % (11.6-14.8) H 17.9 % (11.6-14.8) H Platelet Count 365 K/UL (150-450) 319 K/UL (150-450) Mean Platelet Volume 6.3 FL (6.5-10.1) L 7.5 FL (6.5-10.1) Neutrophils (%) (Auto) % (45.0-75.0) 79.6 % (45.0-75.0) H Lymphocytes (%) (Auto) % (20.0-45.0) 16.1 % (20.0-45.0) L Monocytes (%) (Auto) % (1.0-10.0) 4.0 % (1.0-10.0) Eosinophils (%) (Auto) % (0.0-3.0) 0.1 % (0.0-3.0) Basophils (%) (Auto) % (0.0-2.0) 0.3 % (0.0-2.0) Differential Total Cells Counted 100 Neutrophils % (Manual) 73 % (45-75) Lymphocytes % (Manual) 17 % (20-45) L Monocytes % (Manual) 4 % (1-10) Eosinophils % (Manual) 0 % (0-3) Basophils % (Manual) 0 % (0-2) Band Neutrophils 6 % (0-8) Platelet Estimate Adequate Platelet Morphology Normal Red Blood Cell Morphology Normal Anisocytosis Urine Color Pale yellow Urine Appearance Slightly cloudy Urine pH 8 (4.5-8.0) Urine Specific [place] 1.010 (1.005-1.035) Urine Protein 3+ (NEGATIVE) H Urine Glucose (UA) Negative (NEGATIVE) Urine Ketones Negative (NEGATIVE) Urine Blood 5+ (NEGATIVE) H Urine Nitrite Negative (NEGATIVE) Urine Bilirubin Negative (NEGATIVE) Urine Urobilinogen Normal MG/DL (0.0-1.0) Urine Leukocyte Esterase 3+ (NEGATIVE) H Urine RBC 10-15 /HPF (0 - 0) H Urine WBC 20-30 /HPF (0 - 0) H Urine Squamous Epithelial Cells None /LPF (NONE/OCC) Urine Amorphous Sediment Few /LPF (NONE) H Urine Bacteria Moderate /HPF (NONE) H Urine Eosinophils None seen (NONE SEEN) Urine Osmolality 503 mOsm/kg (429-449) H Urine Random Creatinine Pending Urine Random Microalbumin Pending Urine Random Sodium 48 mmol/L (20-110) Urine Random Chloride 74 mmol/L (55-125) Urine Creatinine 36.7 MG/DL (30.0-125.0) Urine Microalbumin/Creatinine Ratio Pending Urine Potassium Timed 48 mmol/L (12-62) Sodium Level 169 MMOL/L (136-145) *H 179 MMOL/L (136-145) #*H Potassium Level 5.5 MMOL/L (3.5-5.1) H 4.0 MMOL/L (3.5-5.1) Chloride Level 130 MMOL/L (98-107) H 140 MMOL/L (98-107) H Carbon Dioxide Level 31 MMOL/L (21-32) 27 MMOL/L (21-32) Anion Gap 8 mmol/L (5-15) 12 mmol/L (5-15) Blood Urea Nitrogen 162 mg/dL (7-18) H 124 mg/dL (7-18) H Creatinine 2.9 MG/DL (0.55-1.30) H 1.9 MG/DL (0.55-1.30) H Estimat Glomerular Filtration Rate 26.3 mL/min (>60) 42.8 mL/min (>60) Glucose Level 174 MG/DL (74-106) H 124 MG/DL (74-106) H Lactic Acid Level 3.30 mmol/L (0.4-2.0) H 2.90 mmol/L (0.66-2.22) H Calcium Level 9.3 MG/DL (8.5-10.1) 8.6 MG/DL (8.5-10.1) Total Bilirubin 0.2 MG/DL (0.2-1.0) 0.2 MG/DL (0.2-1.0) Aspartate Amino Transf (AST/SGOT) 38 U/L (15-37) H 35 U/L (15-37) Alanine Aminotransferase (ALT/SGPT) 37 U/L (12-78) 34 U/L (12-78) Alkaline Phosphatase 180 U/L (46-116) H 137 U/L (46-116) H Total Creatine Kinase 45 U/L (26-308) Creatine Kinase MB 0.5 NG/ML (0.0-3.6) Creatine Kinase MB Relative Index 1.1 Troponin I 0.051 ng/mL (0.000-0.056) Pro-B-Type Natriuretic Peptide 2209 pg/mL (0-125) H Total Protein 9.8 G/DL (6.4-8.2) H 8.4 G/DL (6.4-8.2) H Albumin 2.3 G/DL (3.4-5.0) L 1.9 G/DL (3.4-5.0) L Globulin 7.5 g/dL 6.5 g/dL Albumin/Globulin Ratio 0.3 (1.0-2.7) L 0.3 (1.0-2.7) L Lipase 163 U/L (73-393) Uric Acid 7.5 MG/DL (2.6-7.2) H Phosphorus Level 5.0 MG/DL (2.5-4.9) H Magnesium Level 4.0 MG/DL (1.8-2.4) H Free Thyroxine 1.24 NG/DL (0.76-1.46) Microbiology Date/Time Source Procedure Growth Status 09/23/18 21:27 Rectum Received Height (Feet): 4 Height (Inches): 0.00 Weight (Pounds): 90 Medications Current Medications Medications (Trade) Dose Ordered Sig/Jennifer Route PRN Reason Start Time Stop Time Status Last Admin Dose Admin Acetaminophen (Tylenol) 650 mg Q4H PRN ORAL fever 09/23/18 20:00 10/23/18 19:59 Albuterol/ Ipratropium (Albuterol/ Ipratropium) 3 ml Q4H PRN HHN Shortness of Breath 09/23/18 20:00 09/28/18 19:59 Allopurinol (Zyloprim) 100 mg DAILY GT 09/24/18 09:00 10/24/18 08:59 09/24/18 09:51 Cefepime HCl 500 mg/Dextrose 55 ml @ 110 mls/hr Q24H IVPB 09/24/18 10:00 10/01/18 09:59 Dextrose 1,000 ml @ 150 mls/hr Q6H40M IV 09/24/18 10:30 10/24/18 10:29 UNV Dextrose (Dextrose 50%) 25 ml Q30M PRN IV Hypoglycemia 09/24/18 08:00 10/24/18 07:59 Dextrose (Dextrose 50%) 50 ml Q30M PRN IV Hypoglycemia 09/24/18 08:00 10/24/18 07:59 Heparin Sodium (Porcine) (Heparin 5000 units/ml) 5,000 units EVERY 12 HOURS SUBQ 09/23/18 21:00 10/23/18 20:59 09/24/18 09:55 Insulin Aspart (NovoLOG) BEFORE MEALS AND HS SUBQ 09/24/18 11:30 10/24/18 11:29 Morphine Sulfate (Morphine Sulfate) 2 mg Q4H PRN IVP Moderate Pain (Pain Scale 4-6) 09/23/18 20:00 09/30/18 19:59 Nitroglycerin (Ntg) 0.4 mg Q5M PRN SL Prn Chest Pain 09/23/18 20:00 10/23/18 19:59 Ondansetron HCl (Zofran) 4 mg Q6H PRN IVP Nausea & Vomiting 09/23/18 20:00 10/23/18 19:59 Polyethylene Glycol (Miralax) 17 gm DAILYPRN PRN ORAL Constipation 09/23/18 20:00 10/23/18 19:59 Quetiapine Fumarate (SEROquel) 12.5 mg BID ORAL 09/24/18 09:00 10/24/18 08:59 09/24/18 09:51 Sodium Chloride 1,000 ml @ 100 mls/hr Q10H IVLG 09/24/18 19:47 10/24/18 19:46 Temazepam (Restoril) 15 mg HSPRN PRN ORAL Insomnia 09/23/18 20:00 09/30/18 19:59 Vancomycin HCl (Vanco rx to dose) 1 ea DAILY PRN MISC Per rx protocol 09/23/18 21:30 10/23/18 21:29 Assessment/Plan Problem List: (1) Sepsis ICD Codes: A41.9 - Sepsis, unspecified organism SNOMED: 24463366 (2) ATN (acute tubular necrosis) ICD Codes: N17.0 - Acute kidney failure with tubular necrosis SNOMED: 02074770 (3) Hypernatremia ICD Codes: E87.0 - Hyperosmolality and hypernatremia (4) PVD (peripheral vascular disease) ICD Codes: I73.9 - Peripheral vascular disease, unspecified SNOMED: 547767304 (5) CVA (cerebral vascular accident) ICD Codes: I63.9 - Cerebral infarction, unspecified SNOMED: 712534962 (6) Feeding by G-tube ICD Codes: Z93.1 - Gastrostomy status SNOMED: 228433221, 239245980, 183725515 (7) Alzheimer's dementia ICD Codes: G30.9 - Alzheimer's disease, unspecified; F02.80 - Dementia in other diseases classified elsewhere without behavioral disturbance SNOMED: 59529696 (8) DM (9) S/P AKA (above knee amputation) bilateral ICD Codes: Z89.611 - Acquired absence of right leg above knee; Z89.612 - Acquired absence of left leg above knee SNOMED: 23053107, 123115406 Assessment/Plan: huggins cultures iv hydration check electrolytes iv abx ID evaluation renal studies dvt prophylaxis. Jaylin iDckson MD Sep 24, 2018 10:27
--- NOTE | 2018-09-24 10:59 | NUR ---
RD ASSESSMENT & RECOMMENDATIONS SEE CARE ACTIVITY FOR COMPLETE ASSESSMENT DAILY ESTIMATED NEEDS: Needs based on Wt loss, suspected wound/ 49kg 30-35 kcals/kg 7940-0246 total kcals 1.25-1.5 g protein/kg 61-73 g total protein 25-30 mL/kg 8388-6677 total fluid mLs NUTRITION DIAGNOSIS: * Swallowing difficulty R/T dysphagia as evidenced by pt is PEG dep. * Increased kcal/prot needs R/T wt loss, wound healing as evidenced by significant wt loss of 16lbs/ 13% in 8 weeks, possible sacral wound, pending eval. * Altered nutrition related lab values R/T dehydration, clinical condition as evidenced by critically elev Na (179), elev BUN (124), elev phos (5.0), elev mag (4.0). CURRENT TF:Glucerna 1.5 @ 50ml/hr x 20 hrs ENTERAL NUTRITION RECOMMENDATIONS: Glucerna 1.2 @ 55ml/hr x 24 hrs to provide 1320ml, 1584kcal, 79g prot, 1062ml free water * Rec TF change to Glucerna 1.2 for increased free water * Initiate Glucerna 1.2 @ 25ml/hr x 6 hrs, advance 10ml q 4-6 hrs as tolerated to goal rate * HOB over 30 degrees/ water flush per MD ADDITIONAL RECOMMENDATIONS: 1) CALIBRATED bedscale wt, weekly wt monitoring- +wt loss 2) Per SNF, pts wt= 107lbs (obtained 09/23) 3) Monitor lytes, replete as needed 4) F/up wound evaluation -> Rec Wally 1pkt BID for skin integrity .
--- NOTE | 2018-09-24 11:11 | Diagnostic Imaging Report ---
Indication: Chest pain Comparison: None A single view chest radiograph was obtained. Findings: Left hemidiaphragm is elevated which is unchanged. Heart size is normal. Aorta is calcified and mildly enlarged. Surgical clips are seen in the right upper chest. IMPRESSION: Chronic left basilar volume loss and atelectasis
[2018-09-24] MEDS ORDERED: Pantoprazole Inj IVP SCH (12:30)
--- NOTE | 2018-09-24 12:31 | Consultation ---
Consult Note Consult Note asked to eval for renal failure Patient persist with complaints of abnormal blood work including elevated white blood cell count patient upon initial arrival is tachycardic patient also himself is nonverbal cannot provide any information and put patient has bilateral ezxti-nho-aiwm amputations well unknown regarding fever patient does not have any obvious cause here however no obvious reports as well History of present illness remains limited as the patient is not able to provide any history No Known Allergies (Unverified , 08/10/18) Past Medical History: No History, Except For Hx Cardiac Problems: Yes Hx Hypertension: Yes Hx Diabetes: Yes Hx Gastrointestinal Problems: Yes - dysphagia examined data reviewed Assessment/Plan Acute renal failure ?Underlying chronic renal failure severe dehydration hypernatremia, free water deficit Anemia UTI PVD s/p AKAs Dementia PEG s/p CVA DM D5W IV fluid Anemia jorge monitor lytes and renal parameters per orders Gennaro Cagle MD Sep 24, 2018 12:31
[2018-09-24] MEDS: NovoLOG Insulin Flexpen SUBQ SCH ×3 (12:35→20:55)
--- NOTE | 2018-09-24 13:00 | NUR ---
NURSE NOTES: Telephone Report given to Daria SMITH at [facility].
--- NOTE | 2018-09-24 13:30 | NUR ---
NURSE NOTES: Dr. Marshall notified for open wound with slough around Left BKA area. A Consult of Dr. Martinez ordered for wound management.
--- NOTE | 2018-09-24 13:50 | NUR ---
NURSE NOTES: Pt transferred to [facility] and bedside report given to Daria RN. Pt remains stable
--- NOTE | 2018-09-24 15:39 | NUR ---
*-* INSURANCE *-* CLINICALS AND REVIEWS HAVE BEEN FAXED TO: ANGELA RACHEL: ROQUE P:[phone] EXT*[id number] F: [phone] TRACKING# [id number]
--- NOTE | 2018-09-24 15:41 | NUR ---
NURSE NOTES:WOUND CARE NOTES:Pt with Hx. of Chele ÁLVAREZ presented on admission with multiple wounds. Non-blanchable erythema with a small area of induration L sacrum. #2 small partial thickness wounds (R) sacrum (proximal)0.4cm x (W)0.5cm,(Inferior) (L)0.5cm x (W)0.3cm . Both wounds are moist and viable. Erythema noted to base of scrotum. NBE noted to R R hip /R trochanteric. At distal/dorsal aspect of L AKA an area of non-blanchable erythema with purulent head centrally over bony prominence. No elevation in skin temp noted. Full thickness wound noted at base of L AKA along Historical incision line.Wound exuding moderate amts of purulent exudate. Erythema noted along borders. No odor noted. Pt exhibits pain when wound is minimally palpated. Tx.Plan: Cleanse L AKA wound with Saline. Pack wound with Iodoform 1/2 packing strip. Cover with ABD Pad. Wrap with Kerlix Daily and prn. Apply Betadine to Wound dorsal aspect of L AKA. Cover with Optifoam drsg. Change every 3 days and prn. Apply Triad Paste to Sacrum. Cover with Optifoam drsg. Change every 3 days and prn. Apply Triad Paste to groin areas,Ischial areas and scrotum with each perineal care. APM/KEZIA Mattress overlay. Reposition at least every 2hours or as tolerated.
--- NOTE | 2018-09-24 15:57 | Cardiology Report ---
APPROVED REPORT EKG Measurement Heart [id number] Sinus tachycardia with occasional premature ventricular complexes Right atrial enlargement Nonspecific T wave abnormality Abnormal ECG
--- NOTE | 2018-09-24 19:10 | Consultation ---
Consult Note Consult Note [id number] Percy Connors MD Sep 24, 2018 19:10
[2018-09-24] MEDS ORDERED: Gadavist 7.5mMol/7.5ml vial IV PRN (19:15)
--- NOTE | 2018-09-24 19:22 | NUR ---
HAND-OFF: Report given to Dana SMITH.
--- NOTE | 2018-09-24 19:36 | History & Physical ---
History and Physical History & Physicial Dictated for Int Med-Dr Marshall no. [id number]. Darrick Stout MD Sep 24, 2018 19:36
--- NOTE | 2018-09-24 20:01 | NUR ---
NURSE NOTES: Received patient in bed, a/o x1, able to follow simple commands, no acute distress noted, VSS stable, afebrile, on Gtube feeding, tolerating well. Call light is within reach, bed is in low position,locked and alarm is on. Will continue to monitor for safety and comfort.
[2018-09-24] MEDS: Pantoprazole Inj IVP SCH (20:36)
[2018-09-25] VITALS: BP 94/55
--- NOTE | 2018-09-25 03:30 | History and Physical Report ---
DATE OF ADMISSION: 09/23/2018 CHIEF COMPLAINT: The patient is a 67-year-old male, who presents with a chief complaint of "abnormal laboratories." HISTORY OF PRESENT ILLNESS: The patient was admitted to [facility] from 08/10/2018 to 08/15/2018. The patient is status post PEG placement on 08/13/2018. The patient was discharged to [facility] [place] [facility]. According to staff at [facility], the patient has "abnormal laboratories." The patient was sent to [facility] for evaluation. The patient was found to have leukocytosis. The patient was admitted for leukocytosis to rule out sepsis. REVIEW OF SYSTEMS: Unable to assess secondary to the patient's mental status. PAST MEDICAL HISTORY: Significant for, 1. Deep venous thrombosis of the lower extremity. 2. Diabetes type 2. 3. Hypertension. 4. Cerebrovascular disease, status post cerebrovascular accident x2. 5. Dysphagia. 6. Alzheimer's dementia. 7. History of alcohol abuse. 8. History of heroin abuse. PAST SURGICAL HISTORY: Significant for, 1. Bilateral lower extremity [id number] amputation. 2. PEG placement on 08/13/2018 as above. CURRENT MEDICATIONS: 1. Tylenol 650 mg per G-tube q.4 hours p.r.n. 2. Allopurinol 100 mg per G-tube daily. 3. Aspirin 81 mg per G-tube daily. 4. Atorvastatin 80 mg per G-tube at bedtime. 5. Plavix 75 mg per G-tube daily. 6. Megace 40 mg per G-tube twice daily. 7. Melatonin 3 mg per G-tube at bedtime. 8. Seroquel 12.5 mg per G-tube twice daily. 9. Tramadol 50 mg per G-tube q.6 hours p.r.n. ALLERGIES: No known drug allergies. SOCIAL HISTORY: The patient is single and is a resident of [facility]. The patient denies tobacco or alcohol use. PHYSICAL EXAMINATION: VITAL SIGNS: Temperature 97.7, respirations 20, pulse 118, and blood pressure 103/69. GENERAL: The patient is a well-developed and well-nourished male in no apparent distress. HEENT: Eyes, pupils are equal and responsive to light and accommodation. Extraocular movements are intact. NECK: Supple without lymphadenopathy. CHEST: Lungs are clear to auscultation bilaterally without wheezes or rales. CARDIOVASCULAR: Tachycardic, regular rate and rhythm . S1 and S2 are normal without murmurs, rubs, or gallops. ABDOMEN: Soft, nontender, and nondistended. Positive bowel sounds. No evidence of hepatosplenomegaly. Currently, no rebound or guarding noted. EXTREMITIES: Bilateral mnxgf-zys-xwat amputation. Otherwise, without cyanosis. NEUROLOGIC: Cranial nerves II through XII are grossly intact without focal deficits. LABORATORY STUDIES: WBC 22.0, hemoglobin 13.2, hematocrit 43.7, and platelets 365,000. Sodium 169, potassium 5.5, chloride 130, CO2 31, BUN 162, creatinine 2.9, and glucose 174. BNP elevated at 2209. Urinalysis showed 3+ protein, 5+ blood, 3+ leukocyte esterase with 20 to 30 wbc's, and 10 to 15 rbc's. A chest x-ray was reported as chronic left basilar volume loss and atelectasis. ASSESSMENT: This is a 67-year-old male. 1. Leukocytosis. 2. Probable sepsis. 3. Diabetes type 2. 4. Hypertension. 5. Cerebrovascular disease. 6. Alzheimer's dementia. 7. History of polysubstance abuse. TREATMENT: 1. Leukocytosis/probable sepsis. An Infectious Disease consultation has been obtained with Dr. Connors. The patient has been placed empirically on intravenous cefepime. The patient has also been placed empirically on vancomycin for MRSA coverage. Urine and blood cultures are pending. We will follow recommendations of Infectious Disease. 2. Diabetes type 2. The patient has been placed on a NovoLog sliding scale. 3. Hypertension. The patient is currently hypotensive. Hold anti-hypertensive medication. 4. History of cerebrovascular disease. Continue aspirin as above. 5. Bilateral okovd-nvj-[id number] amputation. Darrick Stout M.D. DR: MARTA JOB#: [id number] CC:
--- NOTE | 2018-09-25 03:45 | Consultation ---
DATE OF CONSULTATION: 09/24/2018 INFECTIOUS DISEASES CONSULTATION CONSULTING PHYSICIAN: Percy Connors M.D. REFERRING PHYSICIANS: 1. Jaylin Dickson M.D. 2. Yannick Marshall M.D. REASON FOR CONSULTATION: Evaluation of the patient for sepsis, leukocytosis, and antibiotic management. HISTORY OF PRESENT ILLNESS: The patient is a 67-year-old male with multiple medical problems, who was brought to this hospital with leukocytosis and probable sepsis. The patient was found to have purulent discharge from the right lower extremity amputation site. Infectious Disease consultation has been requested for further evaluation of the patient. The patient is not able to provide information. Much of the information is gathered through the chart and speaking to staff. According to nurse, the patient has significant purulent drainage from the site of amputation of the left lower extremity. PAST MEDICAL HISTORY: 1. History of bilateral BKA. 2. History of DVT. 3. History of diabetes. 4. Hypertension. 5. History of CVA. 6. History of dysphagia. 7. Dementia. 8. History of alcohol and tobacco and heroin abuse. MEDICATIONS: The patient on IV cefepime and vancomycin. ALLERGIES: No known drug allergies. SOCIAL HISTORY: The patient is single. FAMILY HISTORY: Unavailable. REVIEW OF SYSTEMS: Unobtainable. PHYSICAL EXAMINATION: VITAL SIGNS: Temperature 97.8, blood pressure 122/59, pulse 99, and respiratory rate 18. T-max 101. HEENT: No pale conjunctivae. No icterus. NECK: No lymphadenopathy. CHEST: Coarse breathing sounds. ABDOMEN: Soft. G-tube in place. EXTREMITY: The patient has bilateral lower extremity amputation site, the patient has site of drainage over the left lower extremity amputee site. reveals no purulent discharge. NEUROLOGIC: Nonverbal. SKIN: No rash. LABORATORY AND DIAGNOSTIC DATA: White blood cells 17, hemoglobin 10, and platelets 319,000. UA, 20 to 30 white blood cells. BUN 124 and creatinine 1.9. ALT and AST are unremarkable. Alkaline phosphatase 139. Blood cultures growing gram variable rods. Chest x-ray, left base atelectasis. ASSESSMENT: The patient is a 67-year-old male with, 1. Fever. 2. Leukocytosis. 3. Bacteremia (gram-variable rods). 4. Left lower extremity amputee site wound infection, probable osteomyelitis. 5. Probable pneumonia. 6. Probable urinary tract infection. PLAN: 1. We will continue the patient on IV vancomycin and cefepime. 2. Monitor CBC. 3. Monitor BMP. 4. Monitor cultures (blood, urine, sputum, and wound). 5. MRA of the lower extremity. 6. Monitor chest x-ray. 7. We will follow surgical recommendations regarding wound care. 8. Based on the patient's clinical course and labs, we will do further recommendations. Thank you, Dr. Marshall and Dr. Dickson, for allowing me to participate in the care of this patient. I will follow the patient with you during this hospitalization. Percy Connors M.D. DR: LOCO JOB#: [id number] CC:
[2018-09-25 04:58] VITALS: BP 92/52
[2018-09-25 05:45] LABS: BASOPHILS % (AUTO) 0.6 % (0.0-2.0); EOSINOPHILS % (AUTO) 0.3 % (0.0-3.0); HEMATOCRIT 28.7 % (42.0-52.0); HEMOGLOBIN 8.5 G/DL (14.2-18.0); LYMPHOCYTES % (AUTO) 29.8 % (20.0-45.0); MEAN CORPUSCULAR VOLUME 98 FL (80-99); MONOCYTES % (AUTO) 4.3 % (1.0-10.0); NEUTROPHILS % (AUTO) 65.1 % (45.0-75.0); PLATELET COUNT 308 K/UL (150-450); RED BLOOD COUNT 2.95 M/UL (4.70-6.10); RED CELL DISTRIBUTION WIDTH 17.4 % (11.6-14.8); WHITE BLOOD COUNT 17.3 K/UL (4.8-10.8)
[2018-09-25 06:09] LABS: AMMONIA 29 umol/L (11-32)
[2018-09-25 06:10] LABS: % IRON SATURATION 27 % (15-50); IRON 32 ug/dL (50-175); TOTAL IRON BINDING CAPACITY 118 ug/dL (250-450)
[2018-09-25 06:20] LABS: CREATINE KINASE 69 U/L (26-308); GAMMA GLUTAMYL TRANSPEPTIDASE 37 U/L (5-85); PHOSPHORUS 3.8 MG/DL (2.5-4.9)
[2018-09-25 06:25] LABS: ALANINE AMINOTRANSFERASE 27 U/L (12-78); ALBUMIN 2.6 G/DL (3.4-5.0); ALBUMIN/GLOBULIN RATIO 0.4 (1.0-2.7); ALKALINE PHOSPHATASE 124 U/L (46-116); ANION GAP 10 mmol/L (5-15); ASPARTATE AMINO TRANSFERASE 35 U/L (15-37); BILIRUBIN,TOTAL 0.3 MG/DL (0.2-1.0); BLOOD UREA NITROGEN 84 mg/dL (7-18); CALCIUM 9.1 MG/DL (8.5-10.1); CARBON DIOXIDE 26 MMOL/L (21-32); CHLORIDE 137 MMOL/L (98-107); CHOLESTEROL 101 MG/DL (< 200); CREATININE 1.6 MG/DL (0.55-1.30); HDL CHOLESTEROL 30 MG/DL (40-60); TRIGLYCERIDES 127 MG/DL (30-150)
[2018-09-25 06:27] LABS: SODIUM 173 MMOL/L (136-145)
[2018-09-25] MEDS: NovoLOG Insulin Flexpen SUBQ SCH ×4 (06:30→20:50)
--- NOTE | 2018-09-25 07:11 | NUR ---
HAND-OFF: Report given to Dilip SMITH.
--- NOTE | 2018-09-25 07:30 | NUR ---
NURSE NOTES: MD is aware of NA value reported by the lab, 173, endorsed it to am nurse
--- NOTE | 2018-09-25 07:31 | NUR ---
NURSE NOTES: Patient alert x1, on nasal cannula at 2 liter, no sign of distress and shortness of breath; Tube feeding Glucerna 1.5, will continue to run it at 9 am; IV L-upper arm, D5W running at 150cc. will keep monitoring.
[2018-09-25 07:39] LABS: FERRITIN 1856 NG/ML (8-388)
[2018-09-25 08:00] VITALS: BP 91/50
[2018-09-25] MEDS: Pantoprazole Inj IVP SCH ×2 (08:48→20:41)
[2018-09-25] MEDS: Heparin 5000 units/ml inj SUBQ SCH ×2 (08:51→20:42)
[2018-09-25] MEDS ORDERED: Vancomycin 1gm/D5W 275ml IVPB ONE ×2 (09:00)
--- NOTE | 2018-09-25 10:22 | Nephrology Progress Note ---
Assessment/Plan Problem List: (1) Renal failure (ARF), acute on chronic (2) Dehydration (3) Hypernatremia (4) PVD (peripheral vascular disease) (5) DM (6) Alzheimer's dementia (7) Feeding by G-tube (8) CVA (cerebral vascular accident) Assessment Acute renal failure ?Underlying chronic renal failure severe dehydration hypernatremia, free water deficit Anemia UTI PVD s/p AKAs Dementia PEG s/p CVA DM Plan D5W IV fluid Anemia jorge monitor lytes and renal parameters antibiotics avoid nephrotoxics per orders Subjective ROS Limited/Unobtainable: No Constitutional: Reports: malaise Objective Objective Last 24 Hour Vital Signs Date Time Temp Pulse Resp B/P (MAP) Pulse Ox O2 Delivery O2 Flow Rate FiO2 09/25/18 04:58 98.3 87 20 92/52 (65) 87 09/25/18 00:00 98.1 85 20 94/55 (68) 85 09/24/18 21:50 98.3 94 24 82/42 (55) 94 09/24/18 21:00 Nasal Cannula 2.0 09/24/18 20:00 98.9 87 24 95/55 (68) 87 09/24/18 19:51 99 Nasal Cannula 2.0 28 09/24/18 19:51 Nasal Cannula 2.0 28 09/24/18 19:51 87 18 Nasal Cannula 2.0 28 09/24/18 16:00 97.8 91 18 122/59 (80) 100 09/24/18 12:00 97.1 18 96/62 (73) 96 Intake and Output 09/24/18 09/25/18 18:59 06:59 Intake Total 355 ml Output Total 1400 ml 1400 ml Balance -1045 ml -1400 ml Intake IV Total 355 ml Output Urine Total 1400 ml 1400 ml # Voids 2 # Bowel Movements 1 Laboratory Tests 09/25/18 05:00: Urine Eosinophils None seen, Urine Random Sodium 48 09/25/18 05:30: White Blood Count 17.3H, Red Blood Count 2.95L, Hemoglobin 8.5L, Hematocrit 28.7L, Mean Corpuscular Volume 98, Mean Corpuscular Hemoglobin 28.8, Mean Corpuscular Hemoglobin Concent 29.5L, Red Cell Distribution Width 17.4H, Platelet Count 308, Mean Platelet Volume 7.4, Neutrophils (%) (Auto) 65.1, Lymphocytes (%) (Auto) 29.8, Monocytes (%) (Auto) 4.3, Eosinophils (%) (Auto) 0.3, Basophils (%) (Auto) 0.6, Sodium Level 173*H, Potassium Level 4.0, Chloride Level 137H, Carbon Dioxide Level 26, Anion Gap 10, Blood Urea Nitrogen 84H, Creatinine 1.6H, Estimat Glomerular Filtration Rate 52.2, Glucose Level 92 , Hemoglobin A1c 5.7, Uric Acid 7.0, Calcium Level 9.1, Phosphorus Level 3.8, Magnesium Level 3.6H, Iron Level 32L, Total Iron Binding Capacity 118L, Percent Iron Saturation 27, Unsaturated Iron Binding 86L, Ferritin 1856H, Total Bilirubin 0.3, Gamma Glutamyl Transpeptidase 37, Aspartate Amino Transf (AST/ SGOT) 35, Alanine Aminotransferase (ALT/SGPT) 27, Alkaline Phosphatase 124H, Ammonia 29, Total Creatine Kinase 69, Troponin I 0.044, C-Reactive Protein, Quantitative 10.0H, Pro-B-Type Natriuretic Peptide 1225H, Total Protein 9.3H, Albumin 2.6L, Globulin 6.7, Albumin/Globulin Ratio 0.4L, Triglycerides Level 127 , Cholesterol Level 101, LDL Cholesterol 51, HDL Cholesterol 30L, Cholesterol/ HDL Ratio 3.4, Vitamin B12 Level 719, Folate 17.6, Thyroid Stimulating Hormone ( TSH) 1.137, Random Vancomycin Level 7.8 Height (Feet): 4 Height (Inches): 0.00 Weight (Pounds): 90 General Appearance: no apparent distress, lethargic Neck: limited range of motion Respiratory/Chest: decreased breath sounds Abdomen: soft, other - PEG Extremities: other - Gennaro Portillo MD September 25, 2018 10:22
[2018-09-25] MEDS ORDERED: LORazepam Inj 2mg/ml 1ml IV SCH ×2 (11:00→13:45)
[2018-09-25] MEDS: Cefepime HCl 1 GM in D5W 55 ML IVPB SCH (11:20)
[2018-09-25 12:00] VITALS: BP 90/50
--- NOTE | 2018-09-25 12:56 | Internal Med Progress Note ---
Subjective Date of Service: September 25, 2018 Physician Name Darrick Stout Attending Physician Yannick Marshall MD Current Medications Medications (Trade) Dose Ordered Sig/Jennifer Route PRN Reason Start Time Stop Time Status Last Admin Dose Admin Acetaminophen (Tylenol) 650 mg Q4H PRN ORAL fever 09/23/18 20:00 10/23/18 19:59 Albuterol/ Ipratropium (Albuterol/ Ipratropium) 3 ml Q4H PRN HHN Shortness of Breath 09/23/18 20:00 09/28/18 19:59 09/25/18 04:16 Cefepime HCl 1 gm/ Dextrose 55 ml @ 110 mls/hr Q24H IVPB 09/25/18 10:00 10/02/18 09:59 09/25/18 11:20 Dextrose 1,000 ml @ 150 mls/hr Q6H40M IV 09/24/18 10:30 10/24/18 10:29 09/25/18 06:01 Dextrose (Dextrose 50%) 25 ml Q30M PRN IV Hypoglycemia 09/24/18 08:00 10/24/18 07:59 Dextrose (Dextrose 50%) 50 ml Q30M PRN IV Hypoglycemia 09/24/18 08:00 10/24/18 07:59 Gadobutrol (Gadavist) 7.5 mmol NOW PRN IV Radiology Procedure 09/24/18 19:15 09/28/18 19:10 Heparin Sodium (Porcine) (Heparin 5000 units/ml) 5,000 units EVERY 12 HOURS SUBQ 09/23/18 21:00 10/23/18 20:59 09/25/18 08:51 Insulin Aspart (NovoLOG) BEFORE MEALS AND HS SUBQ 09/24/18 11:30 10/24/18 11:29 09/24/18 20:55 Lorazepam (Ativan 2mg/ml 1ml) 0.5 mg ONCE IV 09/25/18 11:00 09/25/18 13:00 Morphine Sulfate (Morphine Sulfate) 2 mg Q4H PRN IVP Moderate Pain (Pain Scale 4-6) 09/23/18 20:00 09/30/18 19:59 Nitroglycerin (Ntg) 0.4 mg Q5M PRN SL Prn Chest Pain 09/23/18 20:00 10/23/18 19:59 Ondansetron HCl (Zofran) 4 mg Q6H PRN IVP Nausea & Vomiting 09/23/18 20:00 10/23/18 19:59 Pantoprazole (Protonix) 40 mg EVERY 12 HOURS IVP 09/24/18 21:00 10/24/18 20:59 09/25/18 08:48 Polyethylene Glycol (Miralax) 17 gm DAILYPRN PRN ORAL Constipation 09/23/18 20:00 10/23/18 19:59 Quetiapine Fumarate (SEROquel) 12.5 mg BID ORAL 09/24/18 09:00 10/24/18 08:59 09/25/18 08:47 Temazepam (Restoril) 15 mg HSPRN PRN ORAL Insomnia 09/23/18 20:00 09/30/18 19:59 Vancomycin HCl (Vanco rx to dose) 1 ea DAILY PRN MISC Per rx protocol 09/23/18 21:30 10/23/18 21:29 Allergies: Coded Allergies: No Known Allergies (Unverified , 08/10/18) ROS Limited/Unobtainable: No Constitutional: Reports: no symptoms HEENT: Reports: no symptoms Cardiovascular: Reports: no symptoms Respiratory: Reports: no symptoms Gastrointestinal/Abdominal: Reports: no symptoms Genitourinary: Reports: no symptoms Neurologic/Psychiatric: Reports: no symptoms Subjective 67 YO M admitted with leukocytosis. Now UTI. Cover for Int isabella-DR Marshall Objective Last Vital Signs Date Time Temp Pulse Resp B/P (MAP) Pulse Ox O2 Delivery O2 Flow Rate FiO2 09/25/18 12:00 97.7 70 20 90/50 (63) 95 70 09/25/18 09:00 Nasal Cannula 2.0 09/24/18 19:51 28 Laboratory Tests Test 09/25/18 05:00 09/25/18 05:30 Urine Eosinophils None seen (NONE SEEN) Urine Random Sodium 48 mmol/L (20-110) White Blood Count 17.3 K/UL (4.8-10.8) H Red Blood Count 2.95 M/UL (4.70-6.10) L Hemoglobin 8.5 G/DL (14.2-18.0) L Hematocrit 28.7 % (42.0-52.0) L Mean Corpuscular Volume 98 FL (80-99) Mean Corpuscular Hemoglobin 28.8 PG (27.0-31.0) Mean Corpuscular Hemoglobin Concent 29.5 G/DL (32.0-36.0) L Red Cell Distribution Width 17.4 % (11.6-14.8) H Platelet Count 308 K/UL (150-450) Mean Platelet Volume 7.4 FL (6.5-10.1) Neutrophils (%) (Auto) 65.1 % (45.0-75.0) Lymphocytes (%) (Auto) 29.8 % (20.0-45.0) Monocytes (%) (Auto) 4.3 % (1.0-10.0) Eosinophils (%) (Auto) 0.3 % (0.0-3.0) Basophils (%) (Auto) 0.6 % (0.0-2.0) Sodium Level 173 MMOL/L (136-145) *H Potassium Level 4.0 MMOL/L (3.5-5.1) Chloride Level 137 MMOL/L (98-107) H Carbon Dioxide Level 26 MMOL/L (21-32) Anion Gap 10 mmol/L (5-15) Blood Urea Nitrogen 84 mg/dL (7-18) H Creatinine 1.6 MG/DL (0.55-1.30) H Estimat Glomerular Filtration Rate 52.2 mL/min (>60) Glucose Level 92 MG/DL (74-106) Hemoglobin A1c 5.7 % (4.3-6.0) Uric Acid 7.0 MG/DL (2.6-7.2) Calcium Level 9.1 MG/DL (8.5-10.1) Phosphorus Level 3.8 MG/DL (2.5-4.9) Magnesium Level 3.6 MG/DL (1.8-2.4) H Iron Level 32 ug/dL (50-175) L Total Iron Binding Capacity 118 ug/dL (250-450) L Percent Iron Saturation 27 % (15-50) Unsaturated Iron Binding 86 ug/dL (112-346) L Ferritin 1856 NG/ML (8-388) H Total Bilirubin 0.3 MG/DL (0.2-1.0) Gamma Glutamyl Transpeptidase 37 U/L (5-85) Aspartate Amino Transf (AST/SGOT) 35 U/L (15-37) Alanine Aminotransferase (ALT/SGPT) 27 U/L (12-78) Alkaline Phosphatase 124 U/L (46-116) H Ammonia 29 umol/L (11-32) Total Creatine Kinase 69 U/L (26-308) Troponin I 0.044 ng/mL (0.000-0.056) C-Reactive Protein, Quantitative 10.0 mg/dL (0.00-0.90) H Pro-B-Type Natriuretic Peptide 1225 pg/mL (0-125) H Total Protein 9.3 G/DL (6.4-8.2) H Albumin 2.6 G/DL (3.4-5.0) L Globulin 6.7 g/dL Albumin/Globulin Ratio 0.4 (1.0-2.7) L Triglycerides Level 127 MG/DL (30-150) Cholesterol Level 101 MG/DL (< 200) LDL Cholesterol 51 mg/dL (<100) HDL Cholesterol 30 MG/DL (40-60) L Cholesterol/HDL Ratio 3.4 (3.3-4.4) Vitamin B12 Level 719 PG/ML (193-986) Folate 17.6 NG/ML (8.6-58.9) Thyroid Stimulating Hormone (TSH) 1.137 uiU/mL (0.358-3.740) Random Vancomycin Level 7.8 ug/mL Microbiology Date/Time Source Procedure Growth Status 09/23/18 17:35 Blood Blood Culture - Preliminary Gram Negative Alin Resulted 09/23/18 17:30 Blood Blood Culture - Preliminary Gram Negative Alin Resulted 09/23/18 21:27 Rectum Received Intake and Output 09/24/18 09/25/18 18:59 06:59 Intake Total 355 ml Output Total 1400 ml 1400 ml Balance -1045 ml -1400 ml Intake IV Total 355 ml Output Urine Total 1400 ml 1400 ml # Voids 2 # Bowel Movements 1 Objective PHYSICAL EXAMINATION: GENERAL: The patient is a well-developed and well-nourished male in no apparent distress. HEENT: Eyes, pupils are equal and responsive to light and accommodation. Extraocular movements are intact. NECK: Supple without lymphadenopathy. CHEST: Lungs are clear to auscultation bilaterally without wheezes or rales. CARDIOVASCULAR: Tachycardic, regular rate and rhythm . S1 and S2 are normal without murmurs, rubs, or gallops. ABDOMEN: Soft, nontender, and nondistended. Positive bowel sounds. No evidence of hepatosplenomegaly. Currently, no rebound or guarding noted. EXTREMITIES: Bilateral eblpi-[id number] amputation. Otherwise, without cyanosis. NEUROLOGIC: Cranial nerves II through XII are grossly intact without focal deficits. Assessment/Plan Assessment/Plan ASSESSMENT: This is a 67-year-old male. 1. Leukocytosis. 2. sepsis=gram neg alin. 3. Diabetes type 2. 4. Hypertension. 5. Cerebrovascular disease. 6. Alzheimer's dementia. 7. History of polysubstance abuse. TREATMENT: 1. Leukocytosis/sepsis. An Infectious Disease consultation has been obtained with Dr. Connors. The patient has been placed empirically on intravenous cefepime. The patient has also been placed empirically on vancomycin for MRSA coverage. Urine culture=gram neg alin. Blood cultures are pending. We will follow recommendations of Infectious Disease. 2. Diabetes type 2. The patient has been placed on a NovoLog sliding scale. 3. Hypertension. The patient is currently hypotensive. Hold anti-hypertensive medication. 4. History of cerebrovascular disease. Continue aspirin as above. 5. Bilateral acrwn-[id number] amputation. Darrick Stout MD September 25, 2018 12:56
--- NOTE | 2018-09-25 13:39 | NUR ---
NURSE NOTES: Ativan 05. mg wasn't given at 1100 and order fall off. Pharmacy said re-enter the order.
--- NOTE | 2018-09-25 14:08 | Pulmonology Progress Note ---
Assessment/Plan Problems: (1) Sepsis (2) ATN (acute tubular necrosis) (3) Hypernatremia (4) PVD (peripheral vascular disease) (5) CVA (cerebral vascular accident) (6) Feeding by G-tube (7) Alzheimer's dementia (8) DM (9) S/P AKA (above knee amputation) bilateral Assessment/Plan BC have GNR wbc decreasing afebrile now Na slightly better continue d5w at 150 cc/hour feeding by Gtube consider end of life care Subjective ROS Limited/Unobtainable: No Constitutional: Reports: no symptoms HEENT: Repors: no symptoms Respiratory: Reports: no symptoms Allergies: Coded Allergies: No Known Allergies (Unverified , 08/10/18) Objective Last 24 Hour Vital Signs Date Time Temp Pulse Resp B/P (MAP) Pulse Ox O2 Delivery O2 Flow Rate FiO2 09/25/18 12:00 97.7 70 20 90/50 (63) 95 70 09/25/18 09:00 Nasal Cannula 2.0 09/25/18 08:00 97.9 79 20 91/50 (64) 79 09/25/18 04:58 98.3 87 20 92/52 (65) 87 09/25/18 00:00 98.1 85 20 94/55 (68) 85 09/24/18 21:50 98.3 94 24 82/42 (55) 94 09/24/18 21:00 Nasal Cannula 2.0 09/24/18 20:00 98.9 87 24 95/55 (68) 87 09/24/18 19:51 99 Nasal Cannula 2.0 28 09/24/18 19:51 Nasal Cannula 2.0 28 09/24/18 19:51 87 18 Nasal Cannula 2.0 28 09/24/18 16:00 97.8 91 18 122/59 (80) 100 Intake and Output 09/24/18 09/25/18 18:59 06:59 Intake Total 355 ml Output Total 1400 ml 1400 ml Balance -1045 ml -1400 ml Intake IV Total 355 ml Output Urine Total 1400 ml 1400 ml # Voids 2 # Bowel Movements 1 General Appearance: WD/WN HEENT: normocephalic, atraumatic Respiratory/Chest: chest wall non-tender, lungs clear Cardiovascular: normal peripheral pulses, normal rate Abdomen: soft, non tender, non distended Extremities: no clubbing Skin: no lesions Microbiology Date/Time Source Procedure Growth Status 09/23/18 17:35 Blood Blood Culture - Preliminary Gram Negative Alin Resulted 09/23/18 17:30 Blood Blood Culture - Preliminary Gram Negative Alin Resulted 09/23/18 21:27 Rectum Received Laboratory Tests 09/25/18 05:00: Urine Eosinophils None seen, Urine Random Sodium 48 09/25/18 05:30: White Blood Count 17.3H, Red Blood Count 2.95L, Hemoglobin 8.5L, Hematocrit 28.7L, Mean Corpuscular Volume 98, Mean Corpuscular Hemoglobin 28.8, Mean Corpuscular Hemoglobin Concent 29.5L, Red Cell Distribution Width 17.4H, Platelet Count 308, Mean Platelet Volume 7.4, Neutrophils (%) (Auto) 65.1, Lymphocytes (%) (Auto) 29.8, Monocytes (%) (Auto) 4.3, Eosinophils (%) (Auto) 0.3, Basophils (%) (Auto) 0.6, Sodium Level 173*H, Potassium Level 4.0, Chloride Level 137H, Carbon Dioxide Level 26, Anion Gap 10, Blood Urea Nitrogen 84H, Creatinine 1.6H, Estimat Glomerular Filtration Rate 52.2, Glucose Level 92 , Hemoglobin A1c 5.7, Uric Acid 7.0, Calcium Level 9.1, Phosphorus Level 3.8, Magnesium Level 3.6H, Iron Level 32L, Total Iron Binding Capacity 118L, Percent Iron Saturation 27, Unsaturated Iron Binding 86L, Ferritin 1856H, Total Bilirubin 0.3, Gamma Glutamyl Transpeptidase 37, Aspartate Amino Transf (AST/ SGOT) 35, Alanine Aminotransferase (ALT/SGPT) 27, Alkaline Phosphatase 124H, Ammonia 29, Total Creatine Kinase 69, Troponin I 0.044, C-Reactive Protein, Quantitative 10.0H, Pro-B-Type Natriuretic Peptide 1225H, Total Protein 9.3H, Albumin 2.6L, Globulin 6.7, Albumin/Globulin Ratio 0.4L, Triglycerides Level 127 , Cholesterol Level 101, LDL Cholesterol 51, HDL Cholesterol 30L, Cholesterol/ HDL Ratio 3.4, Vitamin B12 Level 719, Folate 17.6, Thyroid Stimulating Hormone ( TSH) 1.137, Random Vancomycin Level 7.8 Current Medications Medications (Trade) Dose Ordered Sig/Jennifer Route PRN Reason Start Time Stop Time Status Last Admin Dose Admin Acetaminophen (Tylenol) 650 mg Q4H PRN ORAL fever 09/23/18 20:00 10/23/18 19:59 Albuterol/ Ipratropium (Albuterol/ Ipratropium) 3 ml Q4H PRN HHN Shortness of Breath 09/23/18 20:00 09/28/18 19:59 09/25/18 04:16 Cefepime HCl 1 gm/ Dextrose 55 ml @ 110 mls/hr Q24H IVPB 09/25/18 10:00 10/02/18 09:59 09/25/18 11:20 Dextrose 1,000 ml @ 150 mls/hr Q6H40M IV 09/24/18 10:30 10/24/18 10:29 09/25/18 13:28 Dextrose (Dextrose 50%) 25 ml Q30M PRN IV Hypoglycemia 09/24/18 08:00 10/24/18 07:59 Dextrose (Dextrose 50%) 50 ml Q30M PRN IV Hypoglycemia 09/24/18 08:00 10/24/18 07:59 Gadobutrol (Gadavist) 7.5 mmol NOW PRN IV Radiology Procedure 09/24/18 19:15 09/28/18 19:10 Heparin Sodium (Porcine) (Heparin 5000 units/ml) 5,000 units EVERY 12 HOURS SUBQ 09/23/18 21:00 10/23/18 20:59 09/25/18 08:51 Insulin Aspart (NovoLOG) BEFORE MEALS AND HS SUBQ 09/24/18 11:30 10/24/18 11:29 09/25/18 13:19 Lorazepam (Ativan 2mg/ml 1ml) 0.5 mg ONCE IV 09/25/18 13:45 09/25/18 15:00 09/25/18 13:52 Morphine Sulfate (Morphine Sulfate) 2 mg Q4H PRN IVP Moderate Pain (Pain Scale 4-6) 09/23/18 20:00 09/30/18 19:59 Nitroglycerin (Ntg) 0.4 mg Q5M PRN SL Prn Chest Pain 09/23/18 20:00 10/23/18 19:59 Ondansetron HCl (Zofran) 4 mg Q6H PRN IVP Nausea & Vomiting 09/23/18 20:00 10/23/18 19:59 Pantoprazole (Protonix) 40 mg EVERY 12 HOURS IVP 09/24/18 21:00 10/24/18 20:59 09/25/18 08:48 Polyethylene Glycol (Miralax) 17 gm DAILYPRN PRN ORAL Constipation 09/23/18 20:00 10/23/18 19:59 Quetiapine Fumarate (SEROquel) 12.5 mg BID ORAL 09/24/18 09:00 10/24/18 08:59 09/25/18 08:47 Temazepam (Restoril) 15 mg HSPRN PRN ORAL Insomnia 09/23/18 20:00 09/30/18 19:59 Vancomycin HCl (Vanco rx to dose) 1 ea DAILY PRN MISC Per rx protocol 09/23/18 21:30 10/23/18 21:29 Jaylin Dickson MD September 25, 2018 14:08
--- NOTE | 2018-09-25 14:24 | NUR ---
*-* INSURANCE *-* UPDATED CLINICALS HAVE BEEN FAXED TO: ANGELA RACHEL: ROQUE P:[phone] EXT*[id number] F: [phone] TRACKING# [id number]
[2018-09-25 16:00] VITALS: BP 104/56
--- NOTE | 2018-09-25 16:53 | Diagnostic Imaging Report ---
Indication: Septic patient, left knee wound near amputation site, possibly similar line is Technique: Sagittal, coronal, and axial T1 and STIR images obtained of the femur Comparison: none Findings: Patient is status post [id number]-lkr-[id number] amputation. Amputation margins appear clean. No marrow signal abnormality demonstrated to suggest acute osteomyelitis. In the soft tissues adjacent to the anteromedial border of the stump, there is a tiny fluid collection seen only on the sagittal STIR images. This measures approximately 8 mm in diameter. There is a rectangular fluid collection in the lateral distal thigh which measures approximately 12 x 11 mm. This extends to the skin surface This is located in the lateral superficial fat slightly posterior to the bone. This appears to be in communication with a long fluid collection that extends anterior and cephalad from the rectangular collection, wraps around anterior to the anterior musculature within the subcutaneous fat, and then extends cephalad medially all the way to the level of the inguinal ligament. A few gas bubbles are seen within this collection at the inferior anteromedial aspect. The short axis dimensions of this collection average 5 mm inferiorly, and up to 10 x 15 mm as it approaches the groin. This collection extends for a length of approximately 22 cm. A Pelayo catheter is seen within the bladder. Impression: No evidence of osteomyelitis Evidence of a sinus tract extending from the lateral medial thigh anterior to the anterior thigh musculature and then cephalad in the medial thigh to the groin. There gas bubbles within it. This may reflect prior instrumentation or could indicate infection with gas-forming organism. Questionable tiny abscess in the distal medial stump, seen on only one image Findings discussed by phone with Dr. Connors at the time of interpretation
--- NOTE | 2018-09-25 16:58 | Infectious Diseases Prog Note ---
Assessment/Plan Assessment/Plan ASSESSMENT: The patient is a 67-year-old male with, Fever Leukocytosis. Bacteremia (gram-variable rods). Left lower extremity amputee site wound infection, probable osteomyelitis. Probable pneumonia Probable urinary tract infection. History of bilateral BKA History of DVT History of diabetes Hypertension History of CVA History of dysphagia Dementia History of alcohol and tobacco and heroin abuse PLAN: Cont the patient on IV vancomycin and cefepime d# 2 Monitor CBC Monitor BMP. Monitor cultures (blood, urine, sputum, and wound). MRA of the lower extremity. Monitor chest x-ray. Surgical fup Subjective Constitutional: Denies: no symptoms, fever, chills, fatigue, anorexia, drenching sweats, other Allergies: Coded Allergies: No Known Allergies (Unverified , 08/10/18) Subjective Fever improving Objective Vital Signs Last 24 Hour Vital Signs Date Time Temp Pulse Resp B/P (MAP) Pulse Ox O2 Delivery O2 Flow Rate FiO2 09/25/18 12:00 97.7 70 20 90/50 (63) 95 70 09/25/18 09:00 Nasal Cannula 2.0 09/25/18 08:00 97.9 79 20 91/50 (64) 79 09/25/18 04:58 98.3 87 20 92/52 (65) 87 09/25/18 00:00 98.1 85 20 94/55 (68) 85 09/24/18 21:50 98.3 94 24 82/42 (55) 94 09/24/18 21:00 Nasal Cannula 2.0 09/24/18 20:00 98.9 87 24 95/55 (68) 87 09/24/18 19:51 99 Nasal Cannula 2.0 28 09/24/18 19:51 Nasal Cannula 2.0 28 09/24/18 19:51 87 18 Nasal Cannula 2.0 28 Height (Feet): 4 Height (Inches): 0.00 Weight (Pounds): 90 HEENT: anicteric Respiratory/Chest: no respiratory distress Cardiovascular: regular rhythm Abdomen: no organomegaly Microbiology Date/Time Source Procedure Growth Status 09/23/18 17:35 Blood Blood Culture - Preliminary Gram Negative Alin Resulted 09/23/18 17:30 Blood Blood Culture - Preliminary Gram Negative Alin Resulted 09/23/18 21:27 Rectum Received Laboratory Tests Test 09/25/18 05:00 09/25/18 05:30 Urine Eosinophils None seen (NONE SEEN) Urine Random Sodium 48 mmol/L (20-110) White Blood Count 17.3 K/UL (4.8-10.8) H Red Blood Count 2.95 M/UL (4.70-6.10) L Hemoglobin 8.5 G/DL (14.2-18.0) L Hematocrit 28.7 % (42.0-52.0) L Mean Corpuscular Volume 98 FL (80-99) Mean Corpuscular Hemoglobin 28.8 PG (27.0-31.0) Mean Corpuscular Hemoglobin Concent 29.5 G/DL (32.0-36.0) L Red Cell Distribution Width 17.4 % (11.6-14.8) H Platelet Count 308 K/UL (150-450) Mean Platelet Volume 7.4 FL (6.5-10.1) Neutrophils (%) (Auto) 65.1 % (45.0-75.0) Lymphocytes (%) (Auto) 29.8 % (20.0-45.0) Monocytes (%) (Auto) 4.3 % (1.0-10.0) Eosinophils (%) (Auto) 0.3 % (0.0-3.0) Basophils (%) (Auto) 0.6 % (0.0-2.0) Sodium Level 173 MMOL/L (136-145) *H Potassium Level 4.0 MMOL/L (3.5-5.1) Chloride Level 137 MMOL/L (98-107) H Carbon Dioxide Level 26 MMOL/L (21-32) Anion Gap 10 mmol/L (5-15) Blood Urea Nitrogen 84 mg/dL (7-18) H Creatinine 1.6 MG/DL (0.55-1.30) H Estimat Glomerular Filtration Rate 52.2 mL/min (>60) Glucose Level 92 MG/DL (74-106) Hemoglobin A1c 5.7 % (4.3-6.0) Uric Acid 7.0 MG/DL (2.6-7.2) Calcium Level 9.1 MG/DL (8.5-10.1) Phosphorus Level 3.8 MG/DL (2.5-4.9) Magnesium Level 3.6 MG/DL (1.8-2.4) H Iron Level 32 ug/dL (50-175) L Total Iron Binding Capacity 118 ug/dL (250-450) L Percent Iron Saturation 27 % (15-50) Unsaturated Iron Binding 86 ug/dL (112-346) L Ferritin 1856 NG/ML (8-388) H Total Bilirubin 0.3 MG/DL (0.2-1.0) Gamma Glutamyl Transpeptidase 37 U/L (5-85) Aspartate Amino Transf (AST/SGOT) 35 U/L (15-37) Alanine Aminotransferase (ALT/SGPT) 27 U/L (12-78) Alkaline Phosphatase 124 U/L (46-116) H Ammonia 29 umol/L (11-32) Total Creatine Kinase 69 U/L (26-308) Troponin I 0.044 ng/mL (0.000-0.056) C-Reactive Protein, Quantitative 10.0 mg/dL (0.00-0.90) H Pro-B-Type Natriuretic Peptide 1225 pg/mL (0-125) H Total Protein 9.3 G/DL (6.4-8.2) H Albumin 2.6 G/DL (3.4-5.0) L Globulin 6.7 g/dL Albumin/Globulin Ratio 0.4 (1.0-2.7) L Triglycerides Level 127 MG/DL (30-150) Cholesterol Level 101 MG/DL (< 200) LDL Cholesterol 51 mg/dL (<100) HDL Cholesterol 30 MG/DL (40-60) L Cholesterol/HDL Ratio 3.4 (3.3-4.4) Vitamin B12 Level 719 PG/ML (193-986) Folate 17.6 NG/ML (8.6-58.9) Thyroid Stimulating Hormone (TSH) 1.137 uiU/mL (0.358-3.740) Random Vancomycin Level 7.8 ug/mL Current Medications Medications (Trade) Dose Ordered Sig/Jennifer Route PRN Reason Start Time Stop Time Status Last Admin Dose Admin Acetaminophen (Tylenol) 650 mg Q4H PRN ORAL fever 09/23/18 20:00 10/23/18 19:59 Albuterol/ Ipratropium (Albuterol/ Ipratropium) 3 ml Q4H PRN HHN Shortness of Breath 09/23/18 20:00 09/28/18 19:59 09/25/18 04:16 Cefepime HCl 1 gm/ Dextrose 55 ml @ 110 mls/hr Q24H IVPB 09/25/18 10:00 10/02/18 09:59 09/25/18 11:20 Dextrose 1,000 ml @ 150 mls/hr Q6H40M IV 09/24/18 10:30 10/24/18 10:29 09/25/18 13:28 Dextrose (Dextrose 50%) 25 ml Q30M PRN IV Hypoglycemia 09/24/18 08:00 10/24/18 07:59 Dextrose (Dextrose 50%) 50 ml Q30M PRN IV Hypoglycemia 09/24/18 08:00 10/24/18 07:59 Gadobutrol (Gadavist) 7.5 mmol NOW PRN IV Radiology Procedure 09/24/18 19:15 09/28/18 19:10 Heparin Sodium (Porcine) (Heparin 5000 units/ml) 5,000 units EVERY 12 HOURS SUBQ 09/23/18 21:00 10/23/18 20:59 09/25/18 08:51 Insulin Aspart (NovoLOG) BEFORE MEALS AND HS SUBQ 09/24/18 11:30 10/24/18 11:29 09/25/18 13:19 Morphine Sulfate (Morphine Sulfate) 2 mg Q4H PRN IVP Moderate Pain (Pain Scale 4-6) 09/23/18 20:00 09/30/18 19:59 Nitroglycerin (Ntg) 0.4 mg Q5M PRN SL Prn Chest Pain 09/23/18 20:00 10/23/18 19:59 Ondansetron HCl (Zofran) 4 mg Q6H PRN IVP Nausea & Vomiting 09/23/18 20:00 10/23/18 19:59 Pantoprazole (Protonix) 40 mg EVERY 12 HOURS IVP 09/24/18 21:00 10/24/18 20:59 09/25/18 08:48 Polyethylene Glycol (Miralax) 17 gm DAILYPRN PRN ORAL Constipation 09/23/18 20:00 10/23/18 19:59 Quetiapine Fumarate (SEROquel) 12.5 mg BID ORAL 09/24/18 09:00 10/24/18 08:59 09/25/18 08:47 Temazepam (Restoril) 15 mg HSPRN PRN ORAL Insomnia 09/23/18 20:00 09/30/18 19:59 Vancomycin HCl (Vanco rx to dose) 1 ea DAILY PRN MISC Per rx protocol 09/23/18 21:30 10/23/18 21:29 Percy Connors MD September 25, 2018 16:58
--- NOTE | 2018-09-25 19:41 | NUR ---
NURSE NOTES: Received patient in bed, non verbal, follows simple commands, NC at 2 liters/min, no acute distress noted, VSS, afebrile. Call light is within reach, bed is in low position, locked alarm is on. Will continue to monitor for safety and comfort.
--- NOTE | 2018-09-25 19:48 | NUR ---
HAND-OFF: Report given to SARAH Chin.
[2018-09-25 20:00] VITALS: BP 94/53
--- NOTE | 2018-09-25 22:39 | Consultation ---
History of Present Illness General Date patient seen: September 25, 2018 Chief Complaint: Abnormal Labs Reason for Consultation: AKA wound / abscess Present Illness HPI 67 M with multiple medical comorbidities presented for medical care and management. noted to have multiple wounds on admission and abnormal wound on left AKA. surgery called to evaluate and assist with care. patient seen, chart reviewed, patient examined. 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 removed and sent for path and cultures Allergies: Coded Allergies: No Known Allergies (Unverified , 08/10/18) Medication History Scheduled Allopurinol* (Allopurinol*), 100 MG GT DAILY Amino Acids/Protein Hydrolys (Pro-Stat Liquid), 30 ML ORAL TWICE A DAY, ( Reported) Aspirin* (Aspir 81*), 81 MG ORAL DAILY, (Reported) Atorvastatin Calcium* (Lipitor*), 80 MG ORAL BEDTIME, (Reported) Ceftriaxone Na/Dextrose,Iso (Ceftriaxone 1 Gm Piggyback), 1 GM IV DAILY Clopidogrel Bisulfate* (Plavix*), 75 MG ORAL DAILY, (Reported) Docusate Sodium* (Docusate Sodium*), 100 MG ORAL TWICE A DAY, (Reported) Magnesium Hydroxide* (Milk Of Magnesia*), 30 ML ORAL DAILY, (Reported) Quetiapine Fumarate* (Seroquel*), 12.5 MG ORAL BID Scheduled PRN Acetaminophen* (Acetaminophen 325MG Tablet*), 500 MG ORAL Q4H PRN for Moderate Pain (Pain Scale 4-6), (Reported) Melatonin (Melatonin), 4 MG ORAL BEDTIME PRN for Insomnia, (Reported) Tramadol Hcl* (Ultram*), 50 MG ORAL Q6H PRN for For Pain, (Reported) Miscellaneous Medications Megestrol Acetate (Megestrol Acetate), 40 MG PO, (Reported) Vit C/Ascorb Sod/Multivit-Min (Emergen-C 500 mg Chewable Tab), 500 MG PO, ( Reported) Patient History Limited by: medical condition History Provided By: Medical Record, PMD Healthcare decision maker Resuscitation status Full Code Advanced Directive on File No Past Medical/Surgical History Past Medical/Surgical History: (1) Iron deficiency anemia (2) CVA (cerebral vascular accident) (3) Feeding by G-tube (4) Alzheimer's dementia (5) DM (6) Hypernatremia (7) ATN (acute tubular necrosis) (8) PVD (peripheral vascular disease) (9) Sepsis (10) UTI (urinary tract infection) (11) Renal failure (ARF), acute on chronic (12) Dehydration (13) Hypernatremia Review of Systems ROS Narrative cannot obtain given medical condition Physical Exam General Appearance: no apparent distress Lines, tubes and drains: peripheral HEENT: normocephalic, atraumatic Neck: normal inspection Respiratory/Chest: decreased breath sounds Cardiovascular/Chest: regular rhythm Abdomen: soft, no organomegaly, no mass, feeding tube Extremities: other - AKA. left as below Neurologic: unresponsiveness Last 24 Hour Vital Signs Date Time Temp Pulse Resp B/P (MAP) Pulse Ox O2 Delivery O2 Flow Rate FiO2 09/25/18 21:47 97 Nasal Cannula 2.0 28 09/25/18 21:47 Nasal Cannula 2.0 28 09/25/18 21:45 106 20 Nasal Cannula 2.0 28 09/25/18 21:00 Nasal Cannula 2.0 09/25/18 20:00 99.0 95 20 94/53 (67) 09/25/18 16:00 97.3 99 20 104/56 (72) 99 99 09/25/18 12:00 97.7 70 20 90/50 (63) 95 70 09/25/18 09:00 Nasal Cannula 2.0 09/25/18 08:00 97.9 79 20 91/50 (64) 79 09/25/18 04:58 98.3 87 20 92/52 (65) 87 09/25/18 00:00 98.1 85 20 94/55 (68) 85 Intake and Output 09/24/18 09/25/18 19:00 07:00 Intake Total 355 ml 300 ml Output Total 1400 ml 1400 ml Balance -1045 ml -1100 ml Intake Free Water 100 ml IV Total 355 ml 150 ml Tube Feeding 50 ml Output Urine Total 1400 ml 1400 ml # Voids 2 # Bowel Movements 1 Laboratory Tests Test 09/25/18 05:00 09/25/18 05:30 Urine Eosinophils None seen (NONE SEEN) Urine Random Sodium 48 mmol/L (20-110) White Blood Count 17.3 K/UL (4.8-10.8) H Red Blood Count 2.95 M/UL (4.70-6.10) L Hemoglobin 8.5 G/DL (14.2-18.0) L Hematocrit 28.7 % (42.0-52.0) L Mean Corpuscular Volume 98 FL (80-99) Mean Corpuscular Hemoglobin 28.8 PG (27.0-31.0) Mean Corpuscular Hemoglobin Concent 29.5 G/DL (32.0-36.0) L Red Cell Distribution Width 17.4 % (11.6-14.8) H Platelet Count 308 K/UL (150-450) Mean Platelet Volume 7.4 FL (6.5-10.1) Neutrophils (%) (Auto) 65.1 % (45.0-75.0) Lymphocytes (%) (Auto) 29.8 % (20.0-45.0) Monocytes (%) (Auto) 4.3 % (1.0-10.0) Eosinophils (%) (Auto) 0.3 % (0.0-3.0) Basophils (%) (Auto) 0.6 % (0.0-2.0) Sodium Level 173 MMOL/L (136-145) *H Potassium Level 4.0 MMOL/L (3.5-5.1) Chloride Level 137 MMOL/L (98-107) H Carbon Dioxide Level 26 MMOL/L (21-32) Anion Gap 10 mmol/L (5-15) Blood Urea Nitrogen 84 mg/dL (7-18) H Creatinine 1.6 MG/DL (0.55-1.30) H Estimat Glomerular Filtration Rate 52.2 mL/min (>60) Glucose Level 92 MG/DL (74-106) Hemoglobin A1c 5.7 % (4.3-6.0) Uric Acid 7.0 MG/DL (2.6-7.2) Calcium Level 9.1 MG/DL (8.5-10.1) Phosphorus Level 3.8 MG/DL (2.5-4.9) Magnesium Level 3.6 MG/DL (1.8-2.4) H Iron Level 32 ug/dL (50-175) L Total Iron Binding Capacity 118 ug/dL (250-450) L Percent Iron Saturation 27 % (15-50) Unsaturated Iron Binding 86 ug/dL (112-346) L Ferritin 1856 NG/ML (8-388) H Total Bilirubin 0.3 MG/DL (0.2-1.0) Gamma Glutamyl Transpeptidase 37 U/L (5-85) Aspartate Amino Transf (AST/SGOT) 35 U/L (15-37) Alanine Aminotransferase (ALT/SGPT) 27 U/L (12-78) Alkaline Phosphatase 124 U/L (46-116) H Ammonia 29 umol/L (11-32) Total Creatine Kinase 69 U/L (26-308) Troponin I 0.044 ng/mL (0.000-0.056) C-Reactive Protein, Quantitative 10.0 mg/dL (0.00-0.90) H Pro-B-Type Natriuretic Peptide 1225 pg/mL (0-125) H Total Protein 9.3 G/DL (6.4-8.2) H Albumin 2.6 G/DL (3.4-5.0) L Globulin 6.7 g/dL Albumin/Globulin Ratio 0.4 (1.0-2.7) L Triglycerides Level 127 MG/DL (30-150) Cholesterol Level 101 MG/DL (< 200) LDL Cholesterol 51 mg/dL (<100) HDL Cholesterol 30 MG/DL (40-60) L Cholesterol/HDL Ratio 3.4 (3.3-4.4) Vitamin B12 Level 719 PG/ML (193-986) Folate 17.6 NG/ML (8.6-58.9) Thyroid Stimulating Hormone (TSH) 1.137 uiU/mL (0.358-3.740) Random Vancomycin Level 7.8 ug/mL Height (Feet): 4 Height (Inches): 0.00 Weight (Pounds): 90 Medications Current Medications Medications (Trade) Dose Ordered Sig/Jennifer Route PRN Reason Start Time Stop Time Status Last Admin Dose Admin Acetaminophen (Tylenol) 650 mg Q4H PRN ORAL fever 09/23/18 20:00 10/23/18 19:59 Albuterol/ Ipratropium (Albuterol/ Ipratropium) 3 ml Q4H PRN HHN Shortness of Breath 09/23/18 20:00 09/28/18 19:59 09/25/18 04:16 Cefepime HCl 1 gm/ Dextrose 55 ml @ 110 mls/hr Q24H IVPB 09/25/18 10:00 10/02/18 09:59 09/25/18 11:20 Dextrose 1,000 ml @ 150 mls/hr Q6H40M IV 09/24/18 10:30 10/24/18 10:29 09/25/18 17:55 Dextrose (Dextrose 50%) 25 ml Q30M PRN IV Hypoglycemia 09/24/18 08:00 10/24/18 07:59 Dextrose (Dextrose 50%) 50 ml Q30M PRN IV Hypoglycemia 09/24/18 08:00 10/24/18 07:59 Gadobutrol (Gadavist) 7.5 mmol NOW PRN IV Radiology Procedure 09/24/18 19:15 09/28/18 19:10 Heparin Sodium (Porcine) (Heparin 5000 units/ml) 5,000 units EVERY 12 HOURS SUBQ 09/23/18 21:00 10/23/18 20:59 09/25/18 20:42 Insulin Aspart (NovoLOG) BEFORE MEALS AND HS SUBQ 09/24/18 11:30 10/24/18 11:29 09/25/18 20:50 Morphine Sulfate (Morphine Sulfate) 2 mg Q4H PRN IVP Moderate Pain (Pain Scale 4-6) 09/23/18 20:00 09/30/18 19:59 Nitroglycerin (Ntg) 0.4 mg Q5M PRN SL Prn Chest Pain 09/23/18 20:00 10/23/18 19:59 Ondansetron HCl (Zofran) 4 mg Q6H PRN IVP Nausea & Vomiting 09/23/18 20:00 10/23/18 19:59 Pantoprazole (Protonix) 40 mg EVERY 12 HOURS IVP 09/24/18 21:00 10/24/18 20:59 09/25/18 20:41 Polyethylene Glycol (Miralax) 17 gm DAILYPRN PRN ORAL Constipation 09/23/18 20:00 10/23/18 19:59 Quetiapine Fumarate (SEROquel) 12.5 mg BID ORAL 09/24/18 09:00 10/24/18 08:59 09/25/18 17:14 Temazepam (Restoril) 15 mg HSPRN PRN ORAL Insomnia 09/23/18 20:00 09/30/18 19:59 Vancomycin HCl (Vanco rx to dose) 1 ea DAILY PRN MISC Per rx protocol 09/23/18 21:30 10/23/18 21:29 Assessment/Plan Problem List: (1) CVA (cerebral vascular accident) ICD Codes: I63.9 - Cerebral infarction, unspecified SNOMED: 295103708 (2) Feeding by G-tube ICD Codes: Z93.1 - Gastrostomy status SNOMED: 376856572, 979160704, 615636362 (3) Alzheimer's dementia ICD Codes: G30.9 - Alzheimer's disease, unspecified; F02.80 - Dementia in other diseases classified elsewhere without behavioral disturbance SNOMED: 76077669 (4) DM (5) Hypernatremia ICD Codes: E87.0 - Hyperosmolality and hypernatremia (6) ATN (acute tubular necrosis) ICD Codes: N17.0 - Acute kidney failure with tubular necrosis SNOMED: 28230805 (7) PVD (peripheral vascular disease) ICD Codes: I73.9 - Peripheral vascular disease, unspecified SNOMED: 712109506 (8) Sepsis ICD Codes: A41.9 - Sepsis, unspecified organism SNOMED: 49129069 (9) UTI (urinary tract infection) ICD Codes: N39.0 - Urinary tract infection, site not specified SNOMED: 56640557 (10) Renal failure (ARF), acute on chronic ICD Codes: N17.9 - Acute kidney failure, unspecified; N18.9 - Chronic kidney disease, unspecified SNOMED: 788839342 (11) Dehydration ICD Codes: E86.0 - Dehydration SNOMED: 74742989 (12) Hypernatremia ICD Codes: E87.0 - Hyperosmolality and hypernatremia (13) Iron deficiency anemia ICD Codes: D50.9 - Iron deficiency anemia, unspecified SNOMED: 03457749 (14) Foreign body (FB) in soft tissue ICD Codes: M79.5 - Residual foreign body in soft tissue SNOMED: 908874270 (15) Decubitus skin ulcer Assessment & Plan: Hx. of Bilat AKViji presented on admission with multiple wounds. Non-blanchable erythema with a small area of induration L sacrum. #2 small partial thickness wounds (R) sacrum (proximal)0.4cm x (W)0.5cm,(Inferior) (L)0.5cm x (W)0.3cm . Both wounds are moist and viable. Erythema noted to base of scrotum. NBE noted to R R hip /R trochanteric. At distal/dorsal aspect of L AKA an area of non-blanchable erythema with purulent head centrally over bony prominence. No elevation in skin temp noted. Full thickness wound noted at base of L AKA along Historical incision line.Wound exuding moderate amts of purulent exudate. Erythema noted along borders. No odor noted. Pt exhibits pain when wound is minimally palpated. long piece of prior bypass graft noted in wound on Left AKA. >30cm graft removed from wound and pus evacuated. wound cleaned and packing and dressing applied. specimen sent for path. cultures taken Tx.Plan: Cleanse L AKA wound with Saline. Pack wound with Iodoform 1/2 packing strip. Cover with ABD Pad. Wrap with Kerlix Daily and prn. Apply Betadine to Wound dorsal aspect of L AKA. Cover with Optifoam drsg. Change every 3 days and prn. Apply Triad Paste to Sacrum. Cover with Optifoam drsg. Change every 3 days and prn. Apply Triad Paste to groin areas,Ischial areas and scrotum with each perineal care. APM/KEZIA Mattress overlay. Reposition at least every 2hours or as tolerated. ICD Codes: L89.90 - Pressure ulcer of unspecified site, unspecified stage SNOMED: 552310520 Emiliano Martinez September 25, 2018 22:39
[2018-09-26] VITALS: BP 122/61
[2018-09-26 04:00] VITALS: BP 116/68
[2018-09-26] MEDS: NovoLOG Insulin Flexpen SUBQ SCH ×4 (06:02→21:00)
[2018-09-26 06:50] LABS: BASOPHILS % (AUTO) 0.4 % (0.0-2.0); EOSINOPHILS % (AUTO) 0.7 % (0.0-3.0); HEMATOCRIT 33.8 % (42.0-52.0); HEMOGLOBIN 10.3 G/DL (14.2-18.0); LYMPHOCYTES % (AUTO) 27.1 % (20.0-45.0); MEAN CORPUSCULAR VOLUME 96 FL (80-99); MONOCYTES % (AUTO) 4.3 % (1.0-10.0); NEUTROPHILS % (AUTO) 67.5 % (45.0-75.0); PLATELET COUNT 293 K/UL (150-450); RED BLOOD COUNT 3.52 M/UL (4.70-6.10); RED CELL DISTRIBUTION WIDTH 17.7 % (11.6-14.8); WHITE BLOOD COUNT 11.2 K/UL (4.8-10.8)
[2018-09-26 07:06] LABS: ALANINE AMINOTRANSFERASE 31 U/L (12-78); ALBUMIN 2.3 G/DL (3.4-5.0); ALBUMIN/GLOBULIN RATIO 0.3 (1.0-2.7); ALKALINE PHOSPHATASE 126 U/L (46-116); ANION GAP 12 mmol/L (5-15); ASPARTATE AMINO TRANSFERASE 33 U/L (15-37); BILIRUBIN,TOTAL 0.2 MG/DL (0.2-1.0); BLOOD UREA NITROGEN 60 mg/dL (7-18); CALCIUM 8.9 MG/DL (8.5-10.1); CARBON DIOXIDE 26 MMOL/L (21-32); CHLORIDE 130 MMOL/L (98-107); CREATININE 1.4 MG/DL (0.55-1.30); POTASSIUM 3.3 MMOL/L (3.5-5.1)
--- NOTE | 2018-09-26 07:14 | NUR ---
HAND-OFF: Report given to Dilip SMITH.
[2018-09-26 07:23] LABS: SODIUM 167 MMOL/L (136-145)
--- NOTE | 2018-09-26 07:49 | NUR ---
NURSE NOTES: Patient non-verbal; on nasal cannula at 2 liter, no sign of distress and shortness of breath; no sing of chest pain; Left-Upper arm D5W running 150 cc; patient on tube feeding will run the feeding at 0900, flushes well, no residual; will check blood sugar as schedules; patient's lab for Md Rolando Osuna notified, waiting for order. will keep monitoring.
[2018-09-26 08:00] VITALS: BP 118/71
--- NOTE | 2018-09-26 08:02 | NUR ---
NURSE NOTES: MD Marshall respond back regarding Na 167 result, no order received.
--- NOTE | 2018-09-26 08:12 | NUR ---
CASE MANAGEMENT:REVIEW 09/25/18 SI: SEPSIS.UTI. BACTEREMIA 97.3 99 20 104/56 99% ON 2L/NC WBC+17.3 H/H-8.5/28.7 NA+173 BUN+84 CR+1.6 IS: IV VANCOMYCIN X1 IV ATIVAN X1 IVF@150/HR IV CEFEPIME Q24 : MED/SURG STATUS PLAN: MRI OF FEMUR 09/26/18 SI: SEPSIS. BACTEREMIA. UTI 99.1 HR~113 THEN 53 22 116/68 93% ON RA WBC+11.2 NA+167 K-3.3 BUN+60 CR+1.4 IS: IV CEFEPIME Q24 IV PROTONIX Q12 IVF@150/HR SEROQUEL PO BID HEPARIN SQ Q12 DUONEB HHN Q4HRS PRN : MED/SURG STATUS 4 EAST DCP: FROM [facility]
[2018-09-26 08:39] LABS: CREATINE KINASE 188 U/L (26-308); GAMMA GLUTAMYL TRANSPEPTIDASE 18 U/L (5-85); PHOSPHORUS 2.2 MG/DL (2.5-4.9)
--- NOTE | 2018-09-26 08:46 | NUR ---
NURSE NOTES: Received a call from [employer] regarding patient is positive for MRSA Nares. MD Marshall and MD Connors notified. Waiting for order.
[2018-09-26] MEDS: Pantoprazole Inj IVP SCH ×2 (09:06→21:00)
[2018-09-26] MEDS: Heparin 5000 units/ml inj SUBQ SCH ×2 (09:07→21:25)
[2018-09-26] MEDS: Cefepime HCl 1 GM in D5W 55 ML IVPB SCH (09:08)
[2018-09-26] MEDS ORDERED: Vancomycin 1gm/D5W 275ml IVPB SCH ×2 (10:00)
[2018-09-26] MEDS ORDERED: Potassium Phosphate 20 MM in NS 275 ML IV SCH (10:00)
--- NOTE | 2018-09-26 10:00 | NUR ---
NURSE NOTES: Patient's IV on the left hand was infiltrated, the hand was swollen and will try to get an IV on the right had and couldn't succeed.
--- NOTE | 2018-09-26 10:30 | NUR ---
NURSE NOTES: Patient doesn't have IV access, I, charge nurse Arsalan and Jory tried but couldn't succeeded. I communicated MD Dickson and Terra at [facility] [place] office, if MD's can change the IV bags to PO. Waiting for order.
--- NOTE | 2018-09-26 10:34 | NUR ---
NURSE NOTES: I communicated MD Marshall, to get an order for PICC line, waiting for order.
--- NOTE | 2018-09-26 11:29 | Nephrology Progress Note ---
Assessment/Plan Problem List: (1) Renal failure (ARF), acute on chronic (2) Dehydration (3) Hypernatremia (4) PVD (peripheral vascular disease) (5) DM (6) Alzheimer's dementia (7) Feeding by G-tube (8) CVA (cerebral vascular accident) Assessment Acute renal failure ?Underlying chronic renal failure severe dehydration hypernatremia, free water deficit Anemia UTI PVD s/p AKAs Dementia PEG s/p CVA DM Plan HAS NO IV ACCESS ! discussed with RN Picc if PMD agreeable D5W IV fluid Anemia jorge monitor lytes and renal parameters antibiotics avoid nephrotoxics per orders Subjective ROS Limited/Unobtainable: No Constitutional: Reports: malaise Objective Objective Last 24 Hour Vital Signs Date Time Temp Pulse Resp B/P (MAP) Pulse Ox O2 Delivery O2 Flow Rate FiO2 09/26/18 09:00 Nasal Cannula 2.0 09/26/18 08:00 98.7 100 19 118/71 (87) 98 100 09/26/18 07:39 53 22 Room Air 21 09/26/18 07:38 93 Room Air 21 09/26/18 07:38 Room Air 21 09/26/18 04:00 99.1 113 20 116/68 (84) 113 09/26/18 00:00 98.9 97 20 122/61 (81) 97 09/25/18 21:47 97 Nasal Cannula 2.0 28 09/25/18 21:47 Nasal Cannula 2.0 28 09/25/18 21:45 106 20 Nasal Cannula 2.0 28 09/25/18 21:00 Nasal Cannula 2.0 09/25/18 20:00 99.0 95 20 94/53 (67) 09/25/18 16:00 97.3 99 20 104/56 (72) 99 99 09/25/18 12:00 97.7 70 20 90/50 (63) 95 70 Intake and Output 09/25/18 09/26/18 19:00 07:00 Intake Total 2555 ml 400 ml Output Total 275 ml 275 ml Balance 2280 ml 125 ml Intake Free Water 100 ml 100 ml IV Total 1855 ml 150 ml Tube Feeding 600 ml 150 ml Output Urine Total 275 ml 275 ml # Voids 2 # Bowel Movements 1 Laboratory Tests 09/26/18 05:25: White Blood Count 11.2H, Red Blood Count 3.52L, Hemoglobin 10.3L, Hematocrit 33.8L, Mean Corpuscular Volume 96, Mean Corpuscular Hemoglobin 29.1, Mean Corpuscular Hemoglobin Concent 30.4L, Red Cell Distribution Width 17.7H, Platelet Count 293, Mean Platelet Volume 7.7, Neutrophils (%) (Auto) 67.5, Lymphocytes (%) (Auto) 27.1, Monocytes (%) (Auto) 4.3, Eosinophils (%) (Auto) 0.7, Basophils (%) (Auto) 0.4, Sodium Level 167*H, Potassium Level 3.3L, Chloride Level 130H, Carbon Dioxide Level 26, Anion Gap 12, Blood Urea Nitrogen 60H, Creatinine 1.4H, Estimat Glomerular Filtration Rate > 60, Glucose Level 165H, Uric Acid 6.0, Calcium Level 8.9, Phosphorus Level 2.2L, Magnesium Level 3.3H, Total Bilirubin 0.2, Gamma Glutamyl Transpeptidase 18, Aspartate Amino Transf (AST/SGOT) 33, Alanine Aminotransferase (ALT/SGPT) 31, Alkaline Phosphatase 126H, Total Creatine Kinase 188, C-Reactive Protein, Quantitative 5.9H, Pro-B-Type Natriuretic Peptide 2363H, Total Protein 9.0H, Albumin 2.3L, Globulin 6.7, Albumin/Globulin Ratio 0.3L, Cortisol AM Sample [Pending], Random Vancomycin Level 12.7 Height (Feet): 4 Height (Inches): 0.00 Weight (Pounds): 90 General Appearance: lethargic Cardiovascular: tachycardia Respiratory/Chest: decreased breath sounds Abdomen: soft Extremities: other - LUE swollen Gennaro Cagle MD September 26, 2018 11:29
[2018-09-26 12:00] VITALS: BP 123/75
[2018-09-26] MEDS ORDERED: Heparin1,000 units/500ml Premix(Conc:2 units/ml) IV PRN (12:26)
[2018-09-26] MEDS ORDERED: Lidocaine 1% Plain 30 ml INJ PRN (12:26)
--- NOTE | 2018-09-26 12:35 | NUR ---
NURSE NOTES: I received an order for placement of PICC line. I tried to get consent for the PICC line and called Donte Mcarthur, the next of kin of patient on [phone] and left a call back number and my name. The other alternative number of the next of kin it rings once and stops. Will keep trying.
--- NOTE | 2018-09-26 12:53 | NUR ---
NURSE NOTES: I tried to get a consent for PICC line and Sera Storm, she is not answering her phone. I will keep trying.
--- NOTE | 2018-09-26 13:04 | NUR ---
*-* INSURANCE *-* UPDATED CLINICALS HAVE BEEN FAXED TO: ANGELA RACHEL: ROQUE P:[phone] EXT*[id number] F: [phone] TRACKING# [id number]
--- NOTE | 2018-09-26 13:18 | Pulmonology Progress Note ---
Assessment/Plan Problems: (1) Sepsis (2) ATN (acute tubular necrosis) (3) Hypernatremia (4) PVD (peripheral vascular disease) (5) CVA (cerebral vascular accident) (6) Feeding by G-tube (7) Alzheimer's dementia (8) DM (9) S/P AKA (above knee amputation) bilateral Assessment/Plan better wbc decreasing afebrile now Na slightly better continue d5w at 150 cc/hour feeding by Gtube consider end of life care Subjective ROS Limited/Unobtainable: No Constitutional: Reports: no symptoms HEENT: Repors: no symptoms Allergies: Coded Allergies: No Known Allergies (Unverified , 08/10/18) Objective Last 24 Hour Vital Signs Date Time Temp Pulse Resp B/P (MAP) Pulse Ox O2 Delivery O2 Flow Rate FiO2 09/26/18 12:00 98.9 99 20 123/75 (91) 99 99 09/26/18 09:00 Nasal Cannula 2.0 09/26/18 08:00 98.7 100 19 118/71 (87) 98 100 09/26/18 07:39 53 22 Room Air 21 09/26/18 07:38 93 Room Air 21 09/26/18 07:38 Room Air 21 09/26/18 04:00 99.1 113 20 116/68 (84) 113 09/26/18 00:00 98.9 97 20 122/61 (81) 97 09/25/18 21:47 97 Nasal Cannula 2.0 28 09/25/18 21:47 Nasal Cannula 2.0 28 09/25/18 21:45 106 20 Nasal Cannula 2.0 28 09/25/18 21:00 Nasal Cannula 2.0 09/25/18 20:00 99.0 95 20 94/53 (67) 09/25/18 16:00 97.3 99 20 104/56 (72) 99 99 Intake and Output 09/25/18 09/26/18 18:59 06:59 Intake Total 2805 ml 300 ml Output Total 275 ml 275 ml Balance 2530 ml 25 ml Intake Free Water 200 ml 100 ml IV Total 2005 ml Tube Feeding 600 ml 200 ml Output Urine Total 275 ml 275 ml # Voids 2 # Bowel Movements 1 General Appearance: cachetic HEENT: normocephalic, atraumatic Respiratory/Chest: chest wall non-tender, lungs clear Cardiovascular: normal peripheral pulses, normal rate Abdomen: normal bowel sounds, soft, non tender Genitourinary: normal external genitalia Extremities: no cyanosis Neurologic/Psychiatric: no motor/sensory deficits Lymphatic: no neck adenopathy Microbiology Date/Time Source Procedure Growth Status 09/23/18 17:35 Blood Blood Culture - Final Proteus Mirabilis Complete 09/23/18 17:30 Blood Blood Culture - Final Proteus Mirabilis Complete 09/23/18 21:27 Nasal Nares MRSA Culture - Final Staphylococcus Aureus - Mrsa Complete 09/25/18 05:00 Urine,Clean Catch Urine Culture - Preliminary Gram Negative Alin Resulted 09/23/18 17:35 Urine,Clean Catch Urine Culture - Final Proteus Mirabilis Complete 09/25/18 06:00 Leg Left Gram Stain - Final Resulted 09/25/18 06:00 Leg Left Wound Culture Pending Resulted 09/25/18 05:00 Leg Left Gram Stain - Final Resulted 09/25/18 05:00 Wound Culture - Preliminary Staphylococcus Aureus Resulted 09/24/18 21:27 Rectum - Final NO CARBAPENEM-RESISTANT ENTEROBACTERI... Complete 09/23/18 21:27 Rectum VRE Culture - Final NO VANCOMYCIN RESISTANT ENTEROCOCCUS ... Complete Laboratory Tests 09/26/18 05:25: White Blood Count 11.2H, Red Blood Count 3.52L, Hemoglobin 10.3L, Hematocrit 33.8L, Mean Corpuscular Volume 96, Mean Corpuscular Hemoglobin 29.1, Mean Corpuscular Hemoglobin Concent 30.4L, Red Cell Distribution Width 17.7H, Platelet Count 293, Mean Platelet Volume 7.7, Neutrophils (%) (Auto) 67.5, Lymphocytes (%) (Auto) 27.1, Monocytes (%) (Auto) 4.3, Eosinophils (%) (Auto) 0.7, Basophils (%) (Auto) 0.4, Sodium Level 167*H, Potassium Level 3.3L, Chloride Level 130H, Carbon Dioxide Level 26, Anion Gap 12, Blood Urea Nitrogen 60H, Creatinine 1.4H, Estimat Glomerular Filtration Rate > 60, Glucose Level 165H, Uric Acid 6.0, Calcium Level 8.9, Phosphorus Level 2.2L, Magnesium Level 3.3H, Total Bilirubin 0.2, Gamma Glutamyl Transpeptidase 18, Aspartate Amino Transf (AST/SGOT) 33, Alanine Aminotransferase (ALT/SGPT) 31, Alkaline Phosphatase 126H, Total Creatine Kinase 188, C-Reactive Protein, Quantitative 5.9H, Pro-B-Type Natriuretic Peptide 2363H, Total Protein 9.0H, Albumin 2.3L, Globulin 6.7, Albumin/Globulin Ratio 0.3L, Cortisol AM Sample [Pending], Random Vancomycin Level 12.7 Current Medications Medications (Trade) Dose Ordered Sig/Jennifer Route PRN Reason Start Time Stop Time Status Last Admin Dose Admin Acetaminophen (Tylenol) 650 mg Q4H PRN ORAL fever 09/23/18 20:00 10/23/18 19:59 Albuterol/ Ipratropium (Albuterol/ Ipratropium) 3 ml Q4H PRN HHN Shortness of Breath 09/23/18 20:00 09/28/18 19:59 09/25/18 04:16 Cefepime HCl 1 gm/ Dextrose 55 ml @ 110 mls/hr Q24H IVPB 09/25/18 10:00 10/02/18 09:59 09/26/18 09:08 Chlorhexidine Gluconate (Rani-Hex 2%) 1 applic DAILY@2000 TOPIC 09/26/18 20:00 10/26/18 19:59 Dextrose 1,000 ml @ 150 mls/hr Q6H40M IV 09/24/18 10:30 10/24/18 10:29 09/26/18 09:09 Dextrose (Dextrose 50%) 25 ml Q30M PRN IV Hypoglycemia 09/24/18 08:00 10/24/18 07:59 Dextrose (Dextrose 50%) 50 ml Q30M PRN IV Hypoglycemia 09/24/18 08:00 10/24/18 07:59 Gadobutrol (Gadavist) 7.5 mmol NOW PRN IV Radiology Procedure 09/24/18 19:15 09/28/18 19:10 Heparin Sodium (Porcine) (Heparin 5000 units/ml) 5,000 units EVERY 12 HOURS SUBQ 09/23/18 21:00 10/23/18 20:59 09/26/18 09:07 Heparin Sodium/ Sodium Chloride (Heparin 1000 units/500ml Premix) 1,000 unit ONCE PRN IV PICC 09/26/18 12:26 09/26/18 23:59 Insulin Aspart (NovoLOG) BEFORE MEALS AND HS SUBQ 09/24/18 11:30 10/24/18 11:29 09/26/18 11:57 Lidocaine HCl (Xylocaine 1% 30ml) 30 ml ONCE PRN INJ picc 09/26/18 12:26 09/26/18 23:59 Morphine Sulfate (Morphine Sulfate) 2 mg Q4H PRN IVP Moderate Pain (Pain Scale 4-6) 09/23/18 20:00 09/30/18 19:59 Nitroglycerin (Ntg) 0.4 mg Q5M PRN SL Prn Chest Pain 09/23/18 20:00 10/23/18 19:59 Ondansetron HCl (Zofran) 4 mg Q6H PRN IVP Nausea & Vomiting 09/23/18 20:00 10/23/18 19:59 Pantoprazole (Protonix) 40 mg EVERY 12 HOURS IVP 09/24/18 21:00 10/24/18 20:59 09/26/18 09:06 Polyethylene Glycol (Miralax) 17 gm DAILYPRN PRN ORAL Constipation 09/23/18 20:00 10/23/18 19:59 Potassium Phosphate 20 mm/ Sodium Chloride 281.6667 ml @ 46.944 m... ONCE IV 09/26/18 10:00 09/26/18 16:00 Quetiapine Fumarate (SEROquel) 12.5 mg BID ORAL 09/24/18 09:00 10/24/18 08:59 09/26/18 09:06 Temazepam (Restoril) 15 mg HSPRN PRN ORAL Insomnia 09/23/18 20:00 09/30/18 19:59 Vancomycin HCl (Vanco rx to dose) 1 ea DAILY PRN MISC Per rx protocol 09/23/18 21:30 10/23/18 21:29 Jaylin Dickson MD September 26, 2018 13:18
--- NOTE | 2018-09-26 13:55 | Surgery Progress Note ---
Surgery Progress Note Subjective Additional Comments no acute events. resting comfortable. no n/v/f/c. no complaints Objective Last 24 Hour Vital Signs Date Time Temp Pulse Resp B/P (MAP) Pulse Ox O2 Delivery O2 Flow Rate FiO2 09/26/18 12:00 98.9 99 20 123/75 (91) 99 99 09/26/18 09:00 Nasal Cannula 2.0 09/26/18 08:00 98.7 100 19 118/71 (87) 98 100 09/26/18 07:39 53 22 Room Air 21 09/26/18 07:38 93 Room Air 21 09/26/18 07:38 Room Air 21 09/26/18 04:00 99.1 113 20 116/68 (84) 113 09/26/18 00:00 98.9 97 20 122/61 (81) 97 09/25/18 21:47 97 Nasal Cannula 2.0 28 09/25/18 21:47 Nasal Cannula 2.0 28 09/25/18 21:45 106 20 Nasal Cannula 2.0 28 09/25/18 21:00 Nasal Cannula 2.0 09/25/18 20:00 99.0 95 20 94/53 (67) 09/25/18 16:00 97.3 99 20 104/56 (72) 99 99 I&O Intake and Output 09/25/18 09/26/18 18:59 06:59 Intake Total 2805 ml 300 ml Output Total 275 ml 275 ml Balance 2530 ml 25 ml Intake Free Water 200 ml 100 ml IV Total 2005 ml Tube Feeding 600 ml 200 ml Output Urine Total 275 ml 275 ml # Voids 2 # Bowel Movements 1 Dressing: saturated Wound: clean Drains: other Cardiovascular: RSR Respiratory: clear Abdomen: soft, flat, non-tender, present bowel sounds, non-distended Extremities: no tenderness, no cyanosis Laboratory Tests Test 09/26/18 05:25 White Blood Count 11.2 K/UL (4.8-10.8) H Red Blood Count 3.52 M/UL (4.70-6.10) L Hemoglobin 10.3 G/DL (14.2-18.0) L Hematocrit 33.8 % (42.0-52.0) L Mean Corpuscular Volume 96 FL (80-99) Mean Corpuscular Hemoglobin 29.1 PG (27.0-31.0) Mean Corpuscular Hemoglobin Concent 30.4 G/DL (32.0-36.0) L Red Cell Distribution Width 17.7 % (11.6-14.8) H Platelet Count 293 K/UL (150-450) Mean Platelet Volume 7.7 FL (6.5-10.1) Neutrophils (%) (Auto) 67.5 % (45.0-75.0) Lymphocytes (%) (Auto) 27.1 % (20.0-45.0) Monocytes (%) (Auto) 4.3 % (1.0-10.0) Eosinophils (%) (Auto) 0.7 % (0.0-3.0) Basophils (%) (Auto) 0.4 % (0.0-2.0) Sodium Level 167 MMOL/L (136-145) *H Potassium Level 3.3 MMOL/L (3.5-5.1) L Chloride Level 130 MMOL/L (98-107) H Carbon Dioxide Level 26 MMOL/L (21-32) Anion Gap 12 mmol/L (5-15) Blood Urea Nitrogen 60 mg/dL (7-18) H Creatinine 1.4 MG/DL (0.55-1.30) H Estimat Glomerular Filtration Rate > 60 mL/min (>60) Glucose Level 165 MG/DL (74-106) H Uric Acid 6.0 MG/DL (2.6-7.2) Calcium Level 8.9 MG/DL (8.5-10.1) Phosphorus Level 2.2 MG/DL (2.5-4.9) L Magnesium Level 3.3 MG/DL (1.8-2.4) H Total Bilirubin 0.2 MG/DL (0.2-1.0) Gamma Glutamyl Transpeptidase 18 U/L (5-85) Aspartate Amino Transf (AST/SGOT) 33 U/L (15-37) Alanine Aminotransferase (ALT/SGPT) 31 U/L (12-78) Alkaline Phosphatase 126 U/L (46-116) H Total Creatine Kinase 188 U/L (26-308) C-Reactive Protein, Quantitative 5.9 mg/dL (0.00-0.90) H Pro-B-Type Natriuretic Peptide 2363 pg/mL (0-125) H Total Protein 9.0 G/DL (6.4-8.2) H Albumin 2.3 G/DL (3.4-5.0) L Globulin 6.7 g/dL Albumin/Globulin Ratio 0.3 (1.0-2.7) L Cortisol AM Sample Pending Random Vancomycin Level 12.7 ug/mL Plan Problems: (1) CVA (cerebral vascular accident) (2) Feeding by G-tube (3) Alzheimer's dementia (4) DM (5) Hypernatremia (6) ATN (acute tubular necrosis) (7) PVD (peripheral vascular disease) (8) Sepsis (9) UTI (urinary tract infection) (10) Renal failure (ARF), acute on chronic (11) Dehydration (12) Hypernatremia (13) Iron deficiency anemia (14) Foreign body (FB) in soft tissue Assessment & Plan: reviewed and sent to path cont with local wound care as below (15) Decubitus skin ulcer Assessment & Plan: Hx. of Chele ÁLVAREZ presented on admission with multiple wounds. Non-blanchable erythema with a small area of induration L sacrum. #2 small partial thickness wounds (R) sacrum (proximal)0.4cm x (W)0.5cm,(Inferior) (L)0.5cm x (W)0.3cm . Both wounds are moist and viable. Erythema noted to base of scrotum. NBE noted to R R hip /R trochanteric. At distal/dorsal aspect of L AKA an area of non-blanchable erythema with purulent head centrally over bony prominence. No elevation in skin temp noted. Full thickness wound noted at base of L AKA along Historical incision line.Wound exuding moderate amts of purulent exudate. Erythema noted along borders. No odor noted. Pt exhibits pain when wound is minimally palpated. long piece of prior bypass graft noted in wound on Left AKA. >30cm graft removed from wound and pus evacuated. wound cleaned and packing and dressing applied. specimen sent for path. cultures taken Tx.Plan: Cleanse L AKA wound with Saline. Pack wound with Iodoform 1/2 packing strip. Cover with ABD Pad. Wrap with Kerlix Daily and prn. Apply Betadine to Wound dorsal aspect of L AKA. Cover with Optifoam drsg. Change every 3 days and prn. Apply Triad Paste to Sacrum. Cover with Optifoam drsg. Change every 3 days and prn. Apply Triad Paste to groin areas,Ischial areas and scrotum with each perineal care. APM/KEZIA Mattress overlay. Reposition at least every 2hours or as tolerated. Emiliano Martinez September 26, 2018 13:55
--- NOTE | 2018-09-26 14:14 | NUR ---
RD ASSESSMENT & RECOMMENDATIONS SEE CARE ACTIVITY FOR COMPLETE ASSESSMENT DAILY ESTIMATED NEEDS: Needs based on Wt loss, sepsis, wounds/ 49kg 30-35 kcals/kg 8081-6574 total kcals 1.25-2 g protein/kg 61-798 g total protein 25-30 mL/kg 2742-1731 total fluid mLs NUTRITION DIAGNOSIS: * Swallowing difficulty R/T dysphagia as evidenced by pt is PEG dep. * Increased kcal/prot needs R/T wt loss, wound healing as evidenced by significant wt loss of 16lbs/ 13% in 8 weeks, partial thickness sacral and full thickness L AKA wound. * Altered nutrition related lab values R/T dehydration, clinical condition as evidenced by critically elev Na (179-> 167), elev BUN (124-> 60), elev phos (5.0-> 2.2), elev mag (3.3). CURRENT TF:Glucerna 1.5 @ 50ml/hr x 20 hrs ENTERAL NUTRITION RECOMMENDATIONS: Glucerna 1.2 @ 55ml/hr x 24 hrs to provide 1320ml, 1584kcal, 79g prot, 1062ml free water * Rec TF CHANGE Glucerna 1.2 for increased free water * Initiate Glucerna 1.2 @ 25ml/hr x 6 hrs, advance 10ml q 4-6 hrs as tolerated to goal rate * HOB over 30 degrees/ water flush per MD ADDITIONAL RECOMMENDATIONS: 1) CALIBRATED bedscale wt, weekly wt monitoring +wt loss 2) Per SNF, pts wt= 107lbs (obtained 09/23) 3) Monitor lytes, replete as needed 4) WC: BENOIT BID + Vit C 250mg BID + ZnSO4 220mg daily x10 days 5) REC increase water flushes for water deficits/ dehydration .
--- NOTE | 2018-09-26 14:18 | Infectious Diseases Prog Note ---
Assessment/Plan Assessment/Plan ASSESSMENT: The patient is a 67-year-old male with, Fever, Sp Leukocytosis, improving Bacteremia: P Mirabilis Left lower extremity amputee site wound infection, no evid of osteomyelitis. Wnd CX : Staph A 09/25 SP removal of prior bypass graft noted in wound on Left AKA. >30cm graft removed from wound and pus evacuated. 09/25 MRI : No evidence of osteomyelitis Evidence of a sinus tract extending from the lateral medial thigh anterior to the anterior thigh musculature and then cephalad in the medial thigh to the groin. There gas bubbles within it. This may reflect prior instrumentation or could indicate infection with gas-forming organism. Probable pneumonia Probable urinary tract infection, P. Mirabilis History of bilateral BKA History of DVT History of diabetes Hypertension History of CVA History of dysphagia Dementia History of alcohol and tobacco and heroin abuse PLAN: Cont the patient on IV vancomycin and cefepime d# 2 Monitor CBC Monitor BMP. Monitor cultures (blood, urine, sputum, and wound). MRA of the lower extremity. Monitor chest x-ray. Surgical fup Subjective Allergies: Coded Allergies: No Known Allergies (Unverified , 08/10/18) Subjective .no new complain afebrile Objective Vital Signs Last 24 Hour Vital Signs Date Time Temp Pulse Resp B/P (MAP) Pulse Ox O2 Delivery O2 Flow Rate FiO2 09/26/18 12:00 98.9 99 20 123/75 (91) 99 99 09/26/18 09:00 Nasal Cannula 2.0 09/26/18 08:00 98.7 100 19 118/71 (87) 98 100 09/26/18 07:39 53 22 Room Air 21 09/26/18 07:38 93 Room Air 21 09/26/18 07:38 Room Air 21 09/26/18 04:00 99.1 113 20 116/68 (84) 113 09/26/18 00:00 98.9 97 20 122/61 (81) 97 09/25/18 21:47 97 Nasal Cannula 2.0 28 09/25/18 21:47 Nasal Cannula 2.0 28 09/25/18 21:45 106 20 Nasal Cannula 2.0 28 09/25/18 21:00 Nasal Cannula 2.0 09/25/18 20:00 99.0 95 20 94/53 (67) 09/25/18 16:00 97.3 99 20 104/56 (72) 99 99 Height (Feet): 4 Height (Inches): 0.00 Weight (Pounds): 90 HEENT: anicteric Respiratory/Chest: no respiratory distress Cardiovascular: regular rhythm Abdomen: non distended Microbiology Date/Time Source Procedure Growth Status 09/23/18 17:35 Blood Blood Culture - Final Proteus Mirabilis Complete 09/23/18 17:30 Blood Blood Culture - Final Proteus Mirabilis Complete 09/23/18 21:27 Nasal Nares MRSA Culture - Final Staphylococcus Aureus - Mrsa Complete 09/25/18 05:00 Urine,Clean Catch Urine Culture - Preliminary Gram Negative Alin Resulted 09/23/18 17:35 Urine,Clean Catch Urine Culture - Final Proteus Mirabilis Complete 09/25/18 06:00 Leg Left Gram Stain - Final Resulted 09/25/18 06:00 Leg Left Wound Culture Pending Resulted 09/25/18 05:00 Leg Left Gram Stain - Final Resulted 09/25/18 05:00 Wound Culture - Preliminary Staphylococcus Aureus Resulted 09/24/18 21:27 Rectum - Final NO CARBAPENEM-RESISTANT ENTEROBACTERI... Complete 09/23/18 21:27 Rectum VRE Culture - Final NO VANCOMYCIN RESISTANT ENTEROCOCCUS ... Complete Laboratory Tests Test 09/26/18 05:25 White Blood Count 11.2 K/UL (4.8-10.8) H Red Blood Count 3.52 M/UL (4.70-6.10) L Hemoglobin 10.3 G/DL (14.2-18.0) L Hematocrit 33.8 % (42.0-52.0) L Mean Corpuscular Volume 96 FL (80-99) Mean Corpuscular Hemoglobin 29.1 PG (27.0-31.0) Mean Corpuscular Hemoglobin Concent 30.4 G/DL (32.0-36.0) L Red Cell Distribution Width 17.7 % (11.6-14.8) H Platelet Count 293 K/UL (150-450) Mean Platelet Volume 7.7 FL (6.5-10.1) Neutrophils (%) (Auto) 67.5 % (45.0-75.0) Lymphocytes (%) (Auto) 27.1 % (20.0-45.0) Monocytes (%) (Auto) 4.3 % (1.0-10.0) Eosinophils (%) (Auto) 0.7 % (0.0-3.0) Basophils (%) (Auto) 0.4 % (0.0-2.0) Sodium Level 167 MMOL/L (136-145) *H Potassium Level 3.3 MMOL/L (3.5-5.1) L Chloride Level 130 MMOL/L (98-107) H Carbon Dioxide Level 26 MMOL/L (21-32) Anion Gap 12 mmol/L (5-15) Blood Urea Nitrogen 60 mg/dL (7-18) H Creatinine 1.4 MG/DL (0.55-1.30) H Estimat Glomerular Filtration Rate > 60 mL/min (>60) Glucose Level 165 MG/DL (74-106) H Uric Acid 6.0 MG/DL (2.6-7.2) Calcium Level 8.9 MG/DL (8.5-10.1) Phosphorus Level 2.2 MG/DL (2.5-4.9) L Magnesium Level 3.3 MG/DL (1.8-2.4) H Total Bilirubin 0.2 MG/DL (0.2-1.0) Gamma Glutamyl Transpeptidase 18 U/L (5-85) Aspartate Amino Transf (AST/SGOT) 33 U/L (15-37) Alanine Aminotransferase (ALT/SGPT) 31 U/L (12-78) Alkaline Phosphatase 126 U/L (46-116) H Total Creatine Kinase 188 U/L (26-308) C-Reactive Protein, Quantitative 5.9 mg/dL (0.00-0.90) H Pro-B-Type Natriuretic Peptide 2363 pg/mL (0-125) H Total Protein 9.0 G/DL (6.4-8.2) H Albumin 2.3 G/DL (3.4-5.0) L Globulin 6.7 g/dL Albumin/Globulin Ratio 0.3 (1.0-2.7) L Cortisol AM Sample Pending Random Vancomycin Level 12.7 ug/mL Current Medications Medications (Trade) Dose Ordered Sig/Jennifer Route PRN Reason Start Time Stop Time Status Last Admin Dose Admin Acetaminophen (Tylenol) 650 mg Q4H PRN ORAL fever 09/23/18 20:00 10/23/18 19:59 Albuterol/ Ipratropium (Albuterol/ Ipratropium) 3 ml Q4H PRN HHN Shortness of Breath 09/23/18 20:00 09/28/18 19:59 09/25/18 04:16 Cefepime HCl 1 gm/ Dextrose 55 ml @ 110 mls/hr Q24H IVPB 09/25/18 10:00 10/02/18 09:59 09/26/18 09:08 Chlorhexidine Gluconate (Rani-Hex 2%) 1 applic DAILY@2000 TOPIC 09/26/18 20:00 10/26/18 19:59 Dextrose 1,000 ml @ 150 mls/hr Q6H40M IV 09/24/18 10:30 10/24/18 10:29 09/26/18 09:09 Dextrose (Dextrose 50%) 25 ml Q30M PRN IV Hypoglycemia 09/24/18 08:00 10/24/18 07:59 Dextrose (Dextrose 50%) 50 ml Q30M PRN IV Hypoglycemia 09/24/18 08:00 10/24/18 07:59 Gadobutrol (Gadavist) 7.5 mmol NOW PRN IV Radiology Procedure 09/24/18 19:15 09/28/18 19:10 Heparin Sodium (Porcine) (Heparin 5000 units/ml) 5,000 units EVERY 12 HOURS SUBQ 09/23/18 21:00 10/23/18 20:59 09/26/18 09:07 Heparin Sodium/ Sodium Chloride (Heparin 1000 units/500ml Premix) 1,000 unit ONCE PRN IV PICC 09/26/18 12:26 09/26/18 23:59 Insulin Aspart (NovoLOG) BEFORE MEALS AND HS SUBQ 09/24/18 11:30 10/24/18 11:29 09/26/18 11:57 Lidocaine HCl (Xylocaine 1% 30ml) 30 ml ONCE PRN INJ picc 09/26/18 12:26 09/26/18 23:59 Morphine Sulfate (Morphine Sulfate) 2 mg Q4H PRN IVP Moderate Pain (Pain Scale 4-6) 09/23/18 20:00 09/30/18 19:59 Nitroglycerin (Ntg) 0.4 mg Q5M PRN SL Prn Chest Pain 09/23/18 20:00 10/23/18 19:59 Ondansetron HCl (Zofran) 4 mg Q6H PRN IVP Nausea & Vomiting 09/23/18 20:00 10/23/18 19:59 Pantoprazole (Protonix) 40 mg EVERY 12 HOURS IVP 09/24/18 21:00 10/24/18 20:59 09/26/18 09:06 Polyethylene Glycol (Miralax) 17 gm DAILYPRN PRN ORAL Constipation 09/23/18 20:00 10/23/18 19:59 Potassium Phosphate 20 mm/ Sodium Chloride 281.6667 ml @ 46.944 m... ONCE IV 09/26/18 10:00 09/26/18 16:00 Quetiapine Fumarate (SEROquel) 12.5 mg BID ORAL 09/24/18 09:00 10/24/18 08:59 09/26/18 09:06 Temazepam (Restoril) 15 mg HSPRN PRN ORAL Insomnia 09/23/18 20:00 09/30/18 19:59 Vancomycin HCl (Vanco rx to dose) 1 ea DAILY PRN MISC Per rx protocol 09/23/18 21:30 10/23/18 21:29 Percy Connors MD September 26, 2018 14:18
--- NOTE | 2018-09-26 15:10 | NUR ---
NURSE NOTES: Sera Storm called back to give consent for PICC line, witnessed by SARAH Mock. Consent on file, and I called Radiology that consent is ready.
[2018-09-26 16:00] VITALS: BP 94/60
[2018-09-26] MEDS: cefTRIAXone 1 GM in D5W 55 ML IVPB SCH (16:00)
[2018-09-26] MEDS: Ascorbic Acid 500mg tab ORAL SCH (17:26)
--- NOTE | 2018-09-26 18:21 | Internal Med Progress Note ---
Subjective Date of Service: September 26, 2018 Physician Name Darrick Stout Attending Physician Yannick Marshall MD Current Medications Medications (Trade) Dose Ordered Sig/Jennifer Route PRN Reason Start Time Stop Time Status Last Admin Dose Admin Acetaminophen (Tylenol) 650 mg Q4H PRN ORAL fever 09/23/18 20:00 10/23/18 19:59 Albuterol/ Ipratropium (Albuterol/ Ipratropium) 3 ml Q4H PRN HHN Shortness of Breath 09/23/18 20:00 09/28/18 19:59 09/25/18 04:16 Ascorbic Acid (Vitamin C) 250 mg TWICE A DAY ORAL 09/26/18 18:00 10/26/18 17:59 09/26/18 17:26 Ceftriaxone Sodium 1 gm/ Dextrose 55 ml @ 110 mls/hr Q24H IVPB 09/26/18 16:00 10/03/18 15:59 Chlorhexidine Gluconate (Rani-Hex 2%) 1 applic DAILY@2000 TOPIC 09/26/18 20:00 10/26/18 19:59 Dextrose 1,000 ml @ 150 mls/hr Q6H40M IV 09/24/18 10:30 10/24/18 10:29 09/26/18 09:09 Dextrose (Dextrose 50%) 25 ml Q30M PRN IV Hypoglycemia 09/24/18 08:00 10/24/18 07:59 Dextrose (Dextrose 50%) 50 ml Q30M PRN IV Hypoglycemia 09/24/18 08:00 10/24/18 07:59 Gadobutrol (Gadavist) 7.5 mmol NOW PRN IV Radiology Procedure 09/24/18 19:15 09/28/18 19:10 Heparin Sodium (Porcine) (Heparin 5000 units/ml) 5,000 units EVERY 12 HOURS SUBQ 09/23/18 21:00 10/23/18 20:59 09/26/18 09:07 Heparin Sodium/ Sodium Chloride (Heparin 1000 units/500ml Premix) 1,000 unit ONCE PRN IV PICC 09/26/18 12:26 09/26/18 23:59 Insulin Aspart (NovoLOG) BEFORE MEALS AND HS SUBQ 09/24/18 11:30 10/24/18 11:29 09/26/18 17:28 Lidocaine HCl (Xylocaine 1% 30ml) 30 ml ONCE PRN INJ picc 09/26/18 12:26 09/26/18 23:59 Morphine Sulfate (Morphine Sulfate) 2 mg Q4H PRN IVP Moderate Pain (Pain Scale 4-6) 09/23/18 20:00 09/30/18 19:59 Nitroglycerin (Ntg) 0.4 mg Q5M PRN SL Prn Chest Pain 09/23/18 20:00 10/23/18 19:59 Ondansetron HCl (Zofran) 4 mg Q6H PRN IVP Nausea & Vomiting 09/23/18 20:00 10/23/18 19:59 Pantoprazole (Protonix) 40 mg EVERY 12 HOURS IVP 09/24/18 21:00 10/24/18 20:59 09/26/18 09:06 Polyethylene Glycol (Miralax) 17 gm DAILYPRN PRN ORAL Constipation 09/23/18 20:00 10/23/18 19:59 Quetiapine Fumarate (SEROquel) 12.5 mg BID ORAL 09/24/18 09:00 10/24/18 08:59 09/26/18 17:26 Temazepam (Restoril) 15 mg HSPRN PRN ORAL Insomnia 09/23/18 20:00 09/30/18 19:59 Vancomycin HCl (Vanco rx to dose) 1 ea DAILY PRN MISC Per rx protocol 09/23/18 21:30 10/23/18 21:29 Allergies: Coded Allergies: No Known Allergies (Unverified , 08/10/18) ROS Limited/Unobtainable: No Constitutional: Reports: no symptoms HEENT: Reports: no symptoms Cardiovascular: Reports: no symptoms Respiratory: Reports: no symptoms Gastrointestinal/Abdominal: Reports: no symptoms Genitourinary: Reports: no symptoms Subjective 67 YO M admitted with leukocytosis. Now UTI and sepsis. Cover for Int isabella-DR Marshall Objective Last Vital Signs Date Time Temp Pulse Resp B/P (MAP) Pulse Ox O2 Delivery O2 Flow Rate FiO2 09/26/18 16:00 97.5 99 20 94/60 (71) 99 99 09/26/18 09:00 Nasal Cannula 2.0 09/26/18 07:39 21 Laboratory Tests Test 09/26/18 05:25 White Blood Count 11.2 K/UL (4.8-10.8) H Red Blood Count 3.52 M/UL (4.70-6.10) L Hemoglobin 10.3 G/DL (14.2-18.0) L Hematocrit 33.8 % (42.0-52.0) L Mean Corpuscular Volume 96 FL (80-99) Mean Corpuscular Hemoglobin 29.1 PG (27.0-31.0) Mean Corpuscular Hemoglobin Concent 30.4 G/DL (32.0-36.0) L Red Cell Distribution Width 17.7 % (11.6-14.8) H Platelet Count 293 K/UL (150-450) Mean Platelet Volume 7.7 FL (6.5-10.1) Neutrophils (%) (Auto) 67.5 % (45.0-75.0) Lymphocytes (%) (Auto) 27.1 % (20.0-45.0) Monocytes (%) (Auto) 4.3 % (1.0-10.0) Eosinophils (%) (Auto) 0.7 % (0.0-3.0) Basophils (%) (Auto) 0.4 % (0.0-2.0) Sodium Level 167 MMOL/L (136-145) *H Potassium Level 3.3 MMOL/L (3.5-5.1) L Chloride Level 130 MMOL/L (98-107) H Carbon Dioxide Level 26 MMOL/L (21-32) Anion Gap 12 mmol/L (5-15) Blood Urea Nitrogen 60 mg/dL (7-18) H Creatinine 1.4 MG/DL (0.55-1.30) H Estimat Glomerular Filtration Rate > 60 mL/min (>60) Glucose Level 165 MG/DL (74-106) H Uric Acid 6.0 MG/DL (2.6-7.2) Calcium Level 8.9 MG/DL (8.5-10.1) Phosphorus Level 2.2 MG/DL (2.5-4.9) L Magnesium Level 3.3 MG/DL (1.8-2.4) H Total Bilirubin 0.2 MG/DL (0.2-1.0) Gamma Glutamyl Transpeptidase 18 U/L (5-85) Aspartate Amino Transf (AST/SGOT) 33 U/L (15-37) Alanine Aminotransferase (ALT/SGPT) 31 U/L (12-78) Alkaline Phosphatase 126 U/L (46-116) H Total Creatine Kinase 188 U/L (26-308) C-Reactive Protein, Quantitative 5.9 mg/dL (0.00-0.90) H Pro-B-Type Natriuretic Peptide 2363 pg/mL (0-125) H Total Protein 9.0 G/DL (6.4-8.2) H Albumin 2.3 G/DL (3.4-5.0) L Globulin 6.7 g/dL Albumin/Globulin Ratio 0.3 (1.0-2.7) L Cortisol AM Sample Pending Random Vancomycin Level 12.7 ug/mL Microbiology Date/Time Source Procedure Growth Status 09/23/18 21:27 Nasal Nares MRSA Culture - Final Staphylococcus Aureus - Mrsa Complete 09/25/18 05:00 Urine,Clean Catch Urine Culture - Preliminary Gram Negative Alin Resulted 09/25/18 06:00 Leg Left Gram Stain - Final Resulted 09/25/18 06:00 Leg Left Wound Culture Pending Resulted 09/25/18 05:00 Leg Left Gram Stain - Final Resulted 09/25/18 05:00 Wound Culture - Preliminary Staphylococcus Aureus Resulted 09/24/18 21:27 Rectum - Final NO CARBAPENEM-RESISTANT ENTEROBACTERI... Complete 09/23/18 21:27 Rectum VRE Culture - Final NO VANCOMYCIN RESISTANT ENTEROCOCCUS ... Complete Intake and Output 09/25/18 09/26/18 18:59 06:59 Intake Total 2805 ml 300 ml Output Total 275 ml 275 ml Balance 2530 ml 25 ml Intake Free Water 200 ml 100 ml IV Total 2005 ml Tube Feeding 600 ml 200 ml Output Urine Total 275 ml 275 ml # Voids 2 # Bowel Movements 1 Objective PHYSICAL EXAMINATION: GENERAL: The patient is a well-developed and well-nourished male in no apparent distress. HEENT: Eyes, pupils are equal and responsive to light and accommodation. Extraocular movements are intact. NECK: Supple without lymphadenopathy. CHEST: Lungs are clear to auscultation bilaterally without wheezes or rales. CARDIOVASCULAR: Tachycardic, regular rate and rhythm . S1 and S2 are normal without murmurs, rubs, or gallops. ABDOMEN: Soft, nontender, and nondistended. Positive bowel sounds. No evidence of hepatosplenomegaly. Currently, no rebound or guarding noted. EXTREMITIES: Bilateral [id number]-dpm-[id number] amputation. Otherwise, without cyanosis. NEUROLOGIC: Cranial nerves II through XII are grossly intact without focal deficits. Assessment/Plan Assessment/Plan ASSESSMENT: This is a 67-year-old male. 1. Leukocytosis. 2. sepsis=Proteus Mirabilis 3. Diabetes type 2. 4. Hypertension. 5. Cerebrovascular disease. 6. Alzheimer's dementia. 7. History of polysubstance abuse. 8. UTI=Proteus mirabilis TREATMENT: 1. Leukocytosis/sepsis/UTI An Infectious Disease consultation has been obtained with Dr. Connors. abx=ceftriaxone D/C vancomycin Urine culture=Proteus Blood cultures=Proteus We will follow recommendations of Infectious Disease. 2. Diabetes type 2. The patient has been placed on a NovoLog sliding scale. 3. Hypertension. The patient is currently hypotensive. Hold anti-hypertensive medication. 4. History of cerebrovascular disease. Continue aspirin as above. 5. Bilateral [id number]-[id number] amputation. Darrick Stout MD September 26, 2018 18:21
--- NOTE | 2018-09-26 19:30 | NUR ---
NURSE NOTES: RECEIVED PATIENT LYING IN BED, AWAKE, ALERT/ORIENTED TO SELF, REALITY ORIENTATION DURING ASSESSMENT. APHASIC, ALL NEEDS ANTICIPATED AND MET BY NURSING STAFF, ABLE TO FOLLOW DIRECTIONS. NO SIGNS AND SYMPTOMS OF ACUTE CARDIO RESPIRATORY DISTRESS/SHORTNESS OF BREATH, NO EDEMA NOTED. BILATERAL AKA, DRESSING DRY AND INTACT TO LEFT STUMP. INCONTINENT OF URINE, CARE PROVIDED, REPOSITIONED FOR COMFORT/PRESSURE RELIEF, TOLERATED WELL. SIDE RAILS UP X3, BED IN LOWEST POSITION FOR SAFETY. CALL LIGHT WITHIN REACH. NAD.
--- NOTE | 2018-09-26 19:49 | NUR ---
HAND-OFF: Report given to SARAH Ramirez.
[2018-09-26 20:00] VITALS: BP 90/56
[2018-09-26] MEDS: Dyna-Hex 2% Top Sol 2oz TOPIC SCH (20:00)
[2018-09-27] VITALS: BP 95/60
[2018-09-27 04:00] VITALS: BP 96/58
[2018-09-27] MEDS: NovoLOG Insulin Flexpen SUBQ SCH ×4 (06:16→21:00)
--- NOTE | 2018-09-27 06:38 | NUR ---
NURSE NOTES: MONITORED BLOOD GLUCOSE LEVEL VIA GLUCOMETER WITH RESULT 155MG/DL, ASYMPTOMATIC, ADM. 4 UNITS NOVOLOG INSULIN SUBCUT, TOLERATED WELL, NO ADVERSE REACTION NOTED AFTER 15 MINUTES. NAD.
[2018-09-27 06:59] LABS: BASOPHILS % (AUTO) 0.3 % (0.0-2.0); EOSINOPHILS % (AUTO) 1.4 % (0.0-3.0); HEMATOCRIT 37.3 % (42.0-52.0); HEMOGLOBIN 11.1 G/DL (14.2-18.0); MEAN CORPUSCULAR VOLUME 96 FL (80-99); MONOCYTES % (AUTO) 3.9 % (1.0-10.0); NEUTROPHILS % (AUTO) 65.5 % (45.0-75.0); PLATELET COUNT 220 K/UL (150-450); RED BLOOD COUNT 3.88 M/UL (4.70-6.10); RED CELL DISTRIBUTION WIDTH 17.6 % (11.6-14.8); WHITE BLOOD COUNT 8.5 K/UL (4.8-10.8)
[2018-09-27 07:21] LABS: ANION GAP 10 mmol/L (5-15); BLOOD UREA NITROGEN 55 mg/dL (7-18); CALCIUM 8.5 MG/DL (8.5-10.1); CARBON DIOXIDE 26 MMOL/L (21-32); CHLORIDE 127 MMOL/L (98-107); CREATININE 1.1 MG/DL (0.55-1.30); POTASSIUM 3.5 MMOL/L (3.5-5.1)
[2018-09-27 07:24] LABS: SODIUM 162 MMOL/L (136-145)
[2018-09-27 08:00] VITALS: BP 97/58
--- NOTE | 2018-09-27 08:22 | NUR ---
NURSE NOTES: Patient received resting in bed. No signs of respiratory distress or pain observed. Respirations unlabored. G-tube placed on temporary hold per orders until 0900. Scheduled for PICC line placement today for IV access. Bed locked in low position. Call light placed within reach, will continue to monitor.
[2018-09-27] MEDS ORDERED: Heparin1,000 units/500ml Premix(Conc:2 units/ml) IV PRN (08:45)
[2018-09-27] MEDS ORDERED: Lidocaine 1% Plain 30 ml INJ PRN (08:45)
[2018-09-27] MEDS: Heparin 5000 units/ml inj SUBQ SCH ×2 (09:00→21:09)
[2018-09-27] MEDS: Pantoprazole Inj IVP SCH ×2 (09:01→09:10)
[2018-09-27 09:02] LABS: ALANINE AMINOTRANSFERASE 25 U/L (12-78); ALBUMIN 2.1 G/DL (3.4-5.0); ALKALINE PHOSPHATASE 120 U/L (46-116); ASPARTATE AMINO TRANSFERASE 36 U/L (15-37); BILIRUBIN,DIRECT < 0.1 MG/DL (0.0-0.3); BILIRUBIN,TOTAL 0.2 MG/DL (0.2-1.0); PHOSPHORUS 2.3 MG/DL (2.5-4.9)
[2018-09-27] MEDS: Ascorbic Acid 500mg tab ORAL SCH ×2 (09:05→17:30)
[2018-09-27] MEDS ORDERED: Vancomycin 750mg/NS 275ml IVPB ONE ×2 (10:00)
[2018-09-27 12:00] VITALS: BP 103/62
--- NOTE | 2018-09-27 12:29 | Infectious Diseases Prog Note ---
Assessment/Plan Assessment/Plan ASSESSMENT: The patient is a 67-year-old male with, Fever, Sp Leukocytosis, Sp Bacteremia/ UTI P Mirabilis Left lower extremity amputee site wound infection, no evid of osteomyelitis. Wnd CX : MRSA 09/25 SP removal of prior bypass graft noted in wound on Left AKA. >30cm graft removed from wound and pus evacuated. 09/25 MRI : No evidence of osteomyelitis Evidence of a sinus tract extending from the lateral medial thigh anterior to the anterior thigh musculature and then cephalad in the medial thigh to the groin. There gas bubbles within it. This may reflect prior instrumentation or could indicate infection with gas-forming organism. Probable pneumonia History of bilateral BKA History of DVT History of diabetes Hypertension History of CVA History of dysphagia Dementia History of alcohol and tobacco and heroin abuse PLAN: Cont the patient on IV vancomycin d# 3 and Rocephin d# 2 09/27 Sp cefepime d# 2 Monitor CBC Monitor BMP. Monitor cultures ( wound). Monitor chest x-ray Surgical fup Subjective Constitutional: Denies: no symptoms, fever, chills, fatigue, anorexia, drenching sweats, other Allergies: Coded Allergies: No Known Allergies (Unverified , 08/10/18) Subjective .no new complain afebrile Objective Vital Signs Last 24 Hour Vital Signs Date Time Temp Pulse Resp B/P (MAP) Pulse Ox O2 Delivery O2 Flow Rate FiO2 09/27/18 12:00 97.6 76 18 103/62 (76) 100 09/27/18 09:20 98 Room Air 21 09/27/18 09:20 Room Air 21 09/27/18 09:20 84 20 Room Air 21 09/27/18 09:00 Room Air 09/27/18 08:00 97.5 83 18 97/58 (71) 98 09/27/18 04:00 97.0 85 18 96/58 (71) 95 09/27/18 00:00 98.1 86 18 95/60 (72) 97 09/26/18 21:05 97 Room Air 21 09/26/18 21:05 82 20 Room Air 21 09/26/18 21:05 Room Air 21 09/26/18 21:00 Room Air 09/26/18 20:00 98.3 92 18 90/56 (67) 97 92 09/26/18 16:00 97.5 99 20 94/60 (71) 99 99 Height (Feet): 4 Height (Inches): 0.00 Weight (Pounds): 90 HEENT: anicteric Respiratory/Chest: no respiratory distress Cardiovascular: no gallop/murmur Abdomen: no organomegaly Microbiology Date/Time Source Procedure Growth Status 09/25/18 05:00 Urine,Clean Catch Urine Culture - Final Gram Negative Alin Complete 09/25/18 06:00 Leg Left Gram Stain - Final Resulted 09/25/18 06:00 Leg Left Wound Culture Pending Resulted 09/25/18 05:00 Leg Left Gram Stain - Final Complete 09/25/18 05:00 Wound Culture - Final Staphylococcus Aureus - Mrsa Complete 09/24/18 21:27 Rectum - Final NO CARBAPENEM-RESISTANT ENTEROBACTERI... Complete Laboratory Tests Test 09/27/18 05:32 White Blood Count 8.5 K/UL (4.8-10.8) Red Blood Count 3.88 M/UL (4.70-6.10) L Hemoglobin 11.1 G/DL (14.2-18.0) L Hematocrit 37.3 % (42.0-52.0) L Mean Corpuscular Volume 96 FL (80-99) Mean Corpuscular Hemoglobin 28.6 PG (27.0-31.0) Mean Corpuscular Hemoglobin Concent 29.7 G/DL (32.0-36.0) L Red Cell Distribution Width 17.6 % (11.6-14.8) H Platelet Count 220 K/UL (150-450) Mean Platelet Volume 8.4 FL (6.5-10.1) Neutrophils (%) (Auto) 65.5 % (45.0-75.0) Lymphocytes (%) (Auto) 29.0 % (20.0-45.0) Monocytes (%) (Auto) 3.9 % (1.0-10.0) Eosinophils (%) (Auto) 1.4 % (0.0-3.0) Basophils (%) (Auto) 0.3 % (0.0-2.0) Sodium Level 162 MMOL/L (136-145) *H Potassium Level 3.5 MMOL/L (3.5-5.1) Chloride Level 127 MMOL/L (98-107) H Carbon Dioxide Level 26 MMOL/L (21-32) Anion Gap 10 mmol/L (5-15) Blood Urea Nitrogen 55 mg/dL (7-18) H Creatinine 1.1 MG/DL (0.55-1.30) Estimat Glomerular Filtration Rate > 60 mL/min (>60) Glucose Level 149 MG/DL (74-106) H Uric Acid 5.2 MG/DL (2.6-7.2) Calcium Level 8.5 MG/DL (8.5-10.1) Phosphorus Level 2.3 MG/DL (2.5-4.9) L Total Bilirubin 0.2 MG/DL (0.2-1.0) Direct Bilirubin < 0.1 MG/DL (0.0-0.3) Aspartate Amino Transf (AST/SGOT) 36 U/L (15-37) Alanine Aminotransferase (ALT/SGPT) 25 U/L (12-78) Alkaline Phosphatase 120 U/L (46-116) H Total Protein 8.0 G/DL (6.4-8.2) Albumin 2.1 G/DL (3.4-5.0) L Random Vancomycin Level 7.0 ug/mL Current Medications Medications (Trade) Dose Ordered Sig/Jennifer Route PRN Reason Start Time Stop Time Status Last Admin Dose Admin Acetaminophen (Tylenol) 650 mg Q4H PRN ORAL fever 09/23/18 20:00 10/23/18 19:59 Albuterol/ Ipratropium (Albuterol/ Ipratropium) 3 ml Q4H PRN HHN Shortness of Breath 09/23/18 20:00 09/28/18 19:59 09/25/18 04:16 Ascorbic Acid (Vitamin C) 250 mg TWICE A DAY ORAL 09/26/18 18:00 10/26/18 17:59 09/27/18 09:05 Ceftriaxone Sodium 1 gm/ Dextrose 55 ml @ 110 mls/hr Q24H IVPB 09/26/18 16:00 10/03/18 15:59 Chlorhexidine Gluconate (Rani-Hex 2%) 1 applic DAILY@2000 TOPIC 09/26/18 20:00 10/26/18 19:59 Dextrose 1,000 ml @ 150 mls/hr Q6H40M IV 09/24/18 10:30 10/24/18 10:29 09/26/18 09:09 Dextrose (Dextrose 50%) 25 ml Q30M PRN IV Hypoglycemia 09/24/18 08:00 10/24/18 07:59 Dextrose (Dextrose 50%) 50 ml Q30M PRN IV Hypoglycemia 09/24/18 08:00 10/24/18 07:59 Gadobutrol (Gadavist) 7.5 mmol NOW PRN IV Radiology Procedure 09/24/18 19:15 09/28/18 19:10 Heparin Sodium (Porcine) (Heparin 5000 units/ml) 5,000 units EVERY 12 HOURS SUBQ 09/23/18 21:00 10/23/18 20:59 09/26/18 21:25 Heparin Sodium/ Sodium Chloride (Heparin 1000 units/500ml Premix) 1,000 unit ONCE PRN IV PICC LINE 09/27/18 08:45 09/29/18 08:44 Insulin Aspart (NovoLOG) BEFORE MEALS AND HS SUBQ 09/24/18 11:30 10/24/18 11:29 09/27/18 06:16 Lidocaine HCl (Xylocaine 1% 30ml) 30 ml ONCE PRN INJ PICC LINE 09/27/18 08:45 09/29/18 08:44 Morphine Sulfate (Morphine Sulfate) 2 mg Q4H PRN IVP Moderate Pain (Pain Scale 4-6) 09/23/18 20:00 09/30/18 19:59 Nitroglycerin (Ntg) 0.4 mg Q5M PRN SL Prn Chest Pain 09/23/18 20:00 10/23/18 19:59 Ondansetron HCl (Zofran) 4 mg Q6H PRN IVP Nausea & Vomiting 09/23/18 20:00 10/23/18 19:59 Pantoprazole (Protonix) 40 mg EVERY 12 HOURS IVP 09/24/18 21:00 10/24/18 20:59 09/26/18 09:06 Polyethylene Glycol (Miralax) 17 gm DAILYPRN PRN ORAL Constipation 09/23/18 20:00 10/23/18 19:59 Quetiapine Fumarate (SEROquel) 12.5 mg BID ORAL 09/24/18 09:00 10/24/18 08:59 09/27/18 09:02 Temazepam (Restoril) 15 mg HSPRN PRN ORAL Insomnia 09/23/18 20:00 09/30/18 19:59 Vancomycin HCl (Vanco rx to dose) 1 ea DAILY PRN MISC Per rx protocol 09/23/18 21:30 10/23/18 21:29 Vancomycin HCl 500 mg/Dextrose 110 ml @ 110 mls/hr Q24H IVPB 09/28/18 10:00 10/03/18 09:59 Percy Connors MD September 27, 2018 12:29
--- NOTE | 2018-09-27 13:28 | Pulmonology Progress Note ---
Assessment/Plan Problems: (1) Sepsis (2) ATN (acute tubular necrosis) (3) Hypernatremia (4) PVD (peripheral vascular disease) (5) CVA (cerebral vascular accident) (6) Feeding by G-tube (7) Alzheimer's dementia (8) DM (9) S/P AKA (above knee amputation) bilateral Assessment/Plan better wbc decreasing afebrile now Na slightly better continue d5w at 150 cc/hour feeding by Gtube consider end of life care Subjective ROS Limited/Unobtainable: No Constitutional: Reports: no symptoms HEENT: Repors: no symptoms Allergies: Coded Allergies: No Known Allergies (Unverified , 08/10/18) Objective Last 24 Hour Vital Signs Date Time Temp Pulse Resp B/P (MAP) Pulse Ox O2 Delivery O2 Flow Rate FiO2 09/27/18 12:00 97.6 76 18 103/62 (76) 100 09/27/18 09:20 98 Room Air 21 09/27/18 09:20 Room Air 21 09/27/18 09:20 84 20 Room Air 21 09/27/18 09:00 Room Air 09/27/18 08:00 97.5 83 18 97/58 (71) 98 09/27/18 04:00 97.0 85 18 96/58 (71) 95 09/27/18 00:00 98.1 86 18 95/60 (72) 97 09/26/18 21:05 97 Room Air 21 09/26/18 21:05 82 20 Room Air 21 09/26/18 21:05 Room Air 21 09/26/18 21:00 Room Air 09/26/18 20:00 98.3 92 18 90/56 (67) 97 92 09/26/18 16:00 97.5 99 20 94/60 (71) 99 99 Intake and Output 09/26/18 09/27/18 19:00 07:00 Intake Total 700 ml 760 ml Balance 700 ml 760 ml Intake Free Water 260 ml IV Total 150 ml Tube Feeding 550 ml 500 ml # Voids 4 General Appearance: WD/WN HEENT: normocephalic, atraumatic Respiratory/Chest: chest wall non-tender, lungs clear, chest wall tender Cardiovascular: normal peripheral pulses, normal rate Abdomen: normal bowel sounds, soft, non tender Genitourinary: normal external genitalia Skin: no rash Microbiology Date/Time Source Procedure Growth Status 09/25/18 05:00 Urine,Clean Catch Urine Culture - Final Gram Negative Alin Complete 09/25/18 06:00 Leg Left Gram Stain - Final Resulted 09/25/18 06:00 Wound Culture - Preliminary Staphylococcus Aureus - Mrsa Resulted 09/25/18 05:00 Leg Left Gram Stain - Final Complete 09/25/18 05:00 Wound Culture - Final Staphylococcus Aureus - Mrsa Complete 09/24/18 21:27 Rectum - Final NO CARBAPENEM-RESISTANT ENTEROBACTERI... Complete Laboratory Tests 09/27/18 05:32: White Blood Count 8.5, Red Blood Count 3.88L, Hemoglobin 11.1L, Hematocrit 37.3L , Mean Corpuscular Volume 96, Mean Corpuscular Hemoglobin 28.6, Mean Corpuscular Hemoglobin Concent 29.7L, Red Cell Distribution Width 17.6H, Platelet Count 220, Mean Platelet Volume 8.4, Neutrophils (%) (Auto) 65.5, Lymphocytes (%) (Auto) 29.0, Monocytes (%) (Auto) 3.9, Eosinophils (%) (Auto) 1.4, Basophils (%) (Auto) 0.3, Sodium Level 162*H, Potassium Level 3.5, Chloride Level 127H, Carbon Dioxide Level 26, Anion Gap 10, Blood Urea Nitrogen 55H, Creatinine 1.1, Estimat Glomerular Filtration Rate > 60, Glucose Level 149H , Uric Acid 5.2, Calcium Level 8.5, Phosphorus Level 2.3L, Total Bilirubin 0.2, Direct Bilirubin < 0.1, Aspartate Amino Transf (AST/SGOT) 36, Alanine Aminotransferase (ALT/SGPT) 25, Alkaline Phosphatase 120H, Total Protein 8.0, Albumin 2.1L, Random Vancomycin Level 7.0 Current Medications Medications (Trade) Dose Ordered Sig/Jennifer Route PRN Reason Start Time Stop Time Status Last Admin Dose Admin Acetaminophen (Tylenol) 650 mg Q4H PRN ORAL fever 09/23/18 20:00 10/23/18 19:59 Albuterol/ Ipratropium (Albuterol/ Ipratropium) 3 ml Q4H PRN HHN Shortness of Breath 09/23/18 20:00 09/28/18 19:59 09/25/18 04:16 Ascorbic Acid (Vitamin C) 250 mg TWICE A DAY ORAL 5/2/19 18:00 10/26/18 17:59 09/27/18 09:05 Ceftriaxone Sodium 1 gm/ Dextrose 55 ml @ 110 mls/hr Q24H IVPB 09/26/18 16:00 10/03/18 15:59 Chlorhexidine Gluconate (Rani-Hex 2%) 1 applic DAILY@2000 TOPIC 09/26/18 20:00 10/26/18 19:59 Dextrose 1,000 ml @ 150 mls/hr Q6H40M IV 09/24/18 10:30 10/24/18 10:29 09/26/18 09:09 Dextrose (Dextrose 50%) 25 ml Q30M PRN IV Hypoglycemia 09/24/18 08:00 10/24/18 07:59 Dextrose (Dextrose 50%) 50 ml Q30M PRN IV Hypoglycemia 09/24/18 08:00 10/24/18 07:59 Gadobutrol (Gadavist) 7.5 mmol NOW PRN IV Radiology Procedure 09/24/18 19:15 09/28/18 19:10 Heparin Sodium (Porcine) (Heparin 5000 units/ml) 5,000 units EVERY 12 HOURS SUBQ 09/23/18 21:00 10/23/18 20:59 09/26/18 21:25 Heparin Sodium/ Sodium Chloride (Heparin 1000 units/500ml Premix) 1,000 unit ONCE PRN IV PICC LINE 09/27/18 08:45 09/29/18 08:44 Insulin Aspart (NovoLOG) BEFORE MEALS AND HS SUBQ 09/24/18 11:30 10/24/18 11:29 09/27/18 06:16 Lidocaine HCl (Xylocaine 1% 30ml) 30 ml ONCE PRN INJ PICC LINE 09/27/18 08:45 09/29/18 08:44 Morphine Sulfate (Morphine Sulfate) 2 mg Q4H PRN IVP Moderate Pain (Pain Scale 4-6) 09/23/18 20:00 09/30/18 19:59 Nitroglycerin (Ntg) 0.4 mg Q5M PRN SL Prn Chest Pain 09/23/18 20:00 10/23/18 19:59 Ondansetron HCl (Zofran) 4 mg Q6H PRN IVP Nausea & Vomiting 09/23/18 20:00 10/23/18 19:59 Pantoprazole (Protonix) 40 mg EVERY 12 HOURS IVP 09/24/18 21:00 10/24/18 20:59 09/26/18 09:06 Polyethylene Glycol (Miralax) 17 gm DAILYPRN PRN ORAL Constipation 09/23/18 20:00 10/23/18 19:59 Quetiapine Fumarate (SEROquel) 12.5 mg BID ORAL 09/24/18 09:00 10/24/18 08:59 09/27/18 09:02 Temazepam (Restoril) 15 mg HSPRN PRN ORAL Insomnia 09/23/18 20:00 09/30/18 19:59 Vancomycin HCl (Vanco rx to dose) 1 ea DAILY PRN MISC Per rx protocol 09/23/18 21:30 10/23/18 21:29 Vancomycin HCl 500 mg/Dextrose 110 ml @ 110 mls/hr Q24H IVPB 09/28/18 10:00 10/03/18 09:59 Jaylin Dickson MD September 27, 2018 13:28
--- NOTE | 2018-09-27 13:39 | Surgery Progress Note ---
Surgery Progress Note Subjective Additional Comments no acute events. comfortable. stable. Objective Last 24 Hour Vital Signs Date Time Temp Pulse Resp B/P (MAP) Pulse Ox O2 Delivery O2 Flow Rate FiO2 09/27/18 12:00 97.6 76 18 103/62 (76) 100 09/27/18 09:20 98 Room Air 21 09/27/18 09:20 Room Air 21 09/27/18 09:20 84 20 Room Air 21 09/27/18 09:00 Room Air 09/27/18 08:00 97.5 83 18 97/58 (71) 98 09/27/18 04:00 97.0 85 18 96/58 (71) 95 09/27/18 00:00 98.1 86 18 95/60 (72) 97 09/26/18 21:05 97 Room Air 21 09/26/18 21:05 82 20 Room Air 21 09/26/18 21:05 Room Air 21 09/26/18 21:00 Room Air 09/26/18 20:00 98.3 92 18 90/56 (67) 97 92 09/26/18 16:00 97.5 99 20 94/60 (71) 99 99 I&O Intake and Output 09/26/18 09/27/18 19:00 07:00 Intake Total 700 ml 760 ml Balance 700 ml 760 ml Intake Free Water 260 ml IV Total 150 ml Tube Feeding 550 ml 500 ml # Voids 4 Dressing: dry Wound: clean Drains: other Cardiovascular: RSR Respiratory: clear Abdomen: soft, present bowel sounds, non-distended Extremities: no tenderness, no cyanosis Laboratory Tests Test 09/27/18 05:32 White Blood Count 8.5 K/UL (4.8-10.8) Red Blood Count 3.88 M/UL (4.70-6.10) L Hemoglobin 11.1 G/DL (14.2-18.0) L Hematocrit 37.3 % (42.0-52.0) L Mean Corpuscular Volume 96 FL (80-99) Mean Corpuscular Hemoglobin 28.6 PG (27.0-31.0) Mean Corpuscular Hemoglobin Concent 29.7 G/DL (32.0-36.0) L Red Cell Distribution Width 17.6 % (11.6-14.8) H Platelet Count 220 K/UL (150-450) Mean Platelet Volume 8.4 FL (6.5-10.1) Neutrophils (%) (Auto) 65.5 % (45.0-75.0) Lymphocytes (%) (Auto) 29.0 % (20.0-45.0) Monocytes (%) (Auto) 3.9 % (1.0-10.0) Eosinophils (%) (Auto) 1.4 % (0.0-3.0) Basophils (%) (Auto) 0.3 % (0.0-2.0) Sodium Level 162 MMOL/L (136-145) *H Potassium Level 3.5 MMOL/L (3.5-5.1) Chloride Level 127 MMOL/L (98-107) H Carbon Dioxide Level 26 MMOL/L (21-32) Anion Gap 10 mmol/L (5-15) Blood Urea Nitrogen 55 mg/dL (7-18) H Creatinine 1.1 MG/DL (0.55-1.30) Estimat Glomerular Filtration Rate > 60 mL/min (>60) Glucose Level 149 MG/DL (74-106) H Uric Acid 5.2 MG/DL (2.6-7.2) Calcium Level 8.5 MG/DL (8.5-10.1) Phosphorus Level 2.3 MG/DL (2.5-4.9) L Total Bilirubin 0.2 MG/DL (0.2-1.0) Direct Bilirubin < 0.1 MG/DL (0.0-0.3) Aspartate Amino Transf (AST/SGOT) 36 U/L (15-37) Alanine Aminotransferase (ALT/SGPT) 25 U/L (12-78) Alkaline Phosphatase 120 U/L (46-116) H Total Protein 8.0 G/DL (6.4-8.2) Albumin 2.1 G/DL (3.4-5.0) L Random Vancomycin Level 7.0 ug/mL Plan Problems: (1) CVA (cerebral vascular accident) (2) Feeding by G-tube (3) Alzheimer's dementia (4) DM (5) Hypernatremia (6) ATN (acute tubular necrosis) (7) PVD (peripheral vascular disease) (8) Sepsis (9) UTI (urinary tract infection) (10) Renal failure (ARF), acute on chronic (11) Dehydration (12) Hypernatremia (13) Iron deficiency anemia (14) Foreign body (FB) in soft tissue Assessment & Plan: reviewed and sent to path cont with local wound care as below (15) Decubitus skin ulcer Assessment & Plan: Hx. of Chele ÁLVAREZ presented on admission with multiple wounds. Non-blanchable erythema with a small area of induration L sacrum. #2 small partial thickness wounds (R) sacrum (proximal)0.4cm x (W)0.5cm,(Inferior) (L)0.5cm x (W)0.3cm . Both wounds are moist and viable. Erythema noted to base of scrotum. NBE noted to R R hip /R trochanteric. At distal/dorsal aspect of L AKA an area of non-blanchable erythema with purulent head centrally over bony prominence. No elevation in skin temp noted. Full thickness wound noted at base of L AKA along Historical incision line.Wound exuding moderate amts of purulent exudate. Erythema noted along borders. No odor noted. Pt exhibits pain when wound is minimally palpated. long piece of prior bypass graft noted in wound on Left AKA. >30cm graft removed from wound and pus evacuated. wound cleaned and packing and dressing applied. specimen sent for path. cultures taken Tx.Plan: Cleanse L AKA wound with Saline. Pack wound with Iodoform 1/2 packing strip. Cover with ABD Pad. Wrap with Kerlix Daily and prn. Apply Betadine to Wound dorsal aspect of L AKA. Cover with Optifoam drsg. Change every 3 days and prn. Apply Triad Paste to Sacrum. Cover with Optifoam drsg. Change every 3 days and prn. Apply Triad Paste to groin areas,Ischial areas and scrotum with each perineal care. APM/KEZIA Mattress overlay. Reposition at least every 2hours or as tolerated. Emiliano Martinez September 27, 2018 13:39
--- NOTE | 2018-09-27 14:03 | NUR ---
*-* INSURANCE *-* UPDATED CLINICALS HAVE BEEN FAXED TO: ANGELA RACHEL: ROQUE P:[phone] EXT*[id number] F: [phone] TRACKING# [id number]
--- NOTE | 2018-09-27 14:53 | Internal Med Progress Note ---
Subjective Physician Name Yannick Marshall Attending Physician Yannick Marshall MD Current Medications Medications (Trade) Dose Ordered Sig/Jennifer Route PRN Reason Start Time Stop Time Status Last Admin Dose Admin Acetaminophen (Tylenol) 650 mg Q4H PRN ORAL fever 09/23/18 20:00 10/23/18 19:59 Albuterol/ Ipratropium (Albuterol/ Ipratropium) 3 ml Q4H PRN HHN Shortness of Breath 09/23/18 20:00 09/28/18 19:59 09/25/18 04:16 Ascorbic Acid (Vitamin C) 250 mg TWICE A DAY ORAL 09/26/18 18:00 10/26/18 17:59 09/27/18 09:05 Ceftriaxone Sodium 1 gm/ Dextrose 55 ml @ 110 mls/hr Q24H IVPB 09/26/18 16:00 10/03/18 15:59 Chlorhexidine Gluconate (Rani-Hex 2%) 1 applic DAILY@2000 TOPIC 09/26/18 20:00 10/26/18 19:59 Dextrose 1,000 ml @ 150 mls/hr Q6H40M IV 09/24/18 10:30 10/24/18 10:29 09/26/18 09:09 Dextrose (Dextrose 50%) 25 ml Q30M PRN IV Hypoglycemia 09/24/18 08:00 10/24/18 07:59 Dextrose (Dextrose 50%) 50 ml Q30M PRN IV Hypoglycemia 09/24/18 08:00 10/24/18 07:59 Gadobutrol (Gadavist) 7.5 mmol NOW PRN IV Radiology Procedure 09/24/18 19:15 09/28/18 19:10 Heparin Sodium (Porcine) (Heparin 5000 units/ml) 5,000 units EVERY 12 HOURS SUBQ 09/23/18 21:00 10/23/18 20:59 09/26/18 21:25 Heparin Sodium/ Sodium Chloride (Heparin 1000 units/500ml Premix) 1,000 unit ONCE PRN IV PICC LINE 09/27/18 08:45 09/29/18 08:44 Insulin Aspart (NovoLOG) BEFORE MEALS AND HS SUBQ 09/24/18 11:30 10/24/18 11:29 09/27/18 06:16 Lidocaine HCl (Xylocaine 1% 30ml) 30 ml ONCE PRN INJ PICC LINE 09/27/18 08:45 09/29/18 08:44 Morphine Sulfate (Morphine Sulfate) 2 mg Q4H PRN IVP Moderate Pain (Pain Scale 4-6) 09/23/18 20:00 09/30/18 19:59 Nitroglycerin (Ntg) 0.4 mg Q5M PRN SL Prn Chest Pain 09/23/18 20:00 10/23/18 19:59 Ondansetron HCl (Zofran) 4 mg Q6H PRN IVP Nausea & Vomiting 09/23/18 20:00 10/23/18 19:59 Pantoprazole (Protonix) 40 mg EVERY 12 HOURS IVP 09/24/18 21:00 10/24/18 20:59 09/26/18 09:06 Polyethylene Glycol (Miralax) 17 gm DAILYPRN PRN ORAL Constipation 09/23/18 20:00 10/23/18 19:59 Quetiapine Fumarate (SEROquel) 12.5 mg BID ORAL 09/24/18 09:00 10/24/18 08:59 09/27/18 09:02 Temazepam (Restoril) 15 mg HSPRN PRN ORAL Insomnia 09/23/18 20:00 09/30/18 19:59 Vancomycin HCl (Vanco rx to dose) 1 ea DAILY PRN MISC Per rx protocol 09/23/18 21:30 10/23/18 21:29 Vancomycin HCl 500 mg/Dextrose 110 ml @ 110 mls/hr Q24H IVPB 09/28/18 10:00 10/03/18 09:59 Allergies: Coded Allergies: No Known Allergies (Unverified , 08/10/18) Subjective Patient is awake, responsive to simple commands, open his eyes, moving his hands and extremities. Objective Last Vital Signs Date Time Temp Pulse Resp B/P (MAP) Pulse Ox O2 Delivery O2 Flow Rate FiO2 09/27/18 12:00 97.6 76 18 103/62 (76) 100 09/27/18 09:20 Room Air 21 09/26/18 09:00 2.0 Laboratory Tests Test 09/27/18 05:32 White Blood Count 8.5 K/UL (4.8-10.8) Red Blood Count 3.88 M/UL (4.70-6.10) L Hemoglobin 11.1 G/DL (14.2-18.0) L Hematocrit 37.3 % (42.0-52.0) L Mean Corpuscular Volume 96 FL (80-99) Mean Corpuscular Hemoglobin 28.6 PG (27.0-31.0) Mean Corpuscular Hemoglobin Concent 29.7 G/DL (32.0-36.0) L Red Cell Distribution Width 17.6 % (11.6-14.8) H Platelet Count 220 K/UL (150-450) Mean Platelet Volume 8.4 FL (6.5-10.1) Neutrophils (%) (Auto) 65.5 % (45.0-75.0) Lymphocytes (%) (Auto) 29.0 % (20.0-45.0) Monocytes (%) (Auto) 3.9 % (1.0-10.0) Eosinophils (%) (Auto) 1.4 % (0.0-3.0) Basophils (%) (Auto) 0.3 % (0.0-2.0) Sodium Level 162 MMOL/L (136-145) *H Potassium Level 3.5 MMOL/L (3.5-5.1) Chloride Level 127 MMOL/L (98-107) H Carbon Dioxide Level 26 MMOL/L (21-32) Anion Gap 10 mmol/L (5-15) Blood Urea Nitrogen 55 mg/dL (7-18) H Creatinine 1.1 MG/DL (0.55-1.30) Estimat Glomerular Filtration Rate > 60 mL/min (>60) Glucose Level 149 MG/DL (74-106) H Uric Acid 5.2 MG/DL (2.6-7.2) Calcium Level 8.5 MG/DL (8.5-10.1) Phosphorus Level 2.3 MG/DL (2.5-4.9) L Total Bilirubin 0.2 MG/DL (0.2-1.0) Direct Bilirubin < 0.1 MG/DL (0.0-0.3) Aspartate Amino Transf (AST/SGOT) 36 U/L (15-37) Alanine Aminotransferase (ALT/SGPT) 25 U/L (12-78) Alkaline Phosphatase 120 U/L (46-116) H Total Protein 8.0 G/DL (6.4-8.2) Albumin 2.1 G/DL (3.4-5.0) L Random Vancomycin Level 7.0 ug/mL Microbiology Date/Time Source Procedure Growth Status 09/25/18 05:00 Urine,Clean Catch Urine Culture - Final Gram Negative Alin Complete 09/25/18 06:00 Leg Left Gram Stain - Final Resulted 09/25/18 06:00 Wound Culture - Preliminary Staphylococcus Aureus - Mrsa Resulted 09/25/18 05:00 Leg Left Gram Stain - Final Complete 09/25/18 05:00 Wound Culture - Final Staphylococcus Aureus - Mrsa Complete 09/24/18 21:27 Rectum - Final NO CARBAPENEM-RESISTANT ENTEROBACTERI... Complete Intake and Output 09/26/18 09/27/18 18:59 06:59 Intake Total 800 ml 810 ml Balance 800 ml 810 ml Intake Free Water 260 ml IV Total 300 ml Tube Feeding 500 ml 550 ml # Voids 4 Objective General: No acute distress, awake and responsive. HEENT: NCAT, sclera anicteric, PERRL, EOMI. Neck: Supple, no significant jugular venous distention, Lungs: Fair inspiratory effort, clear to auscultation bilaterally, no Wheeze or Rales. Heart: Regular rate and rhythm, normal S1/S2, no murmur. Abdomen: soft, nontender, nondistended. Normoactive bowel sounds, PEG site intact. : Condom catheter. Extremities: No Cyanosis , clubbing or edema. Lateral lower extremities AKA. Neuro: CN 2-12 intact, Able to move all extremities Assessment/Plan Assessment/Plan ASSESSMENT: This is a 67-year-old male. 1. Bacteremia. 2. sepsis most likely secondary to acute UTI Proteus Mirabilis 3. Diabetes type 2. 4. Hypertension. 5. Cerebrovascular disease. 6. Alzheimer's dementia. 7. History of polysubstance abuse. 8. Peripheral vascular disease status post of bilateral lower extremities AKA. 9. Acute renal insufficiency on chronic renal disease. TREATMENT: 1. Leukocytosis/sepsis/UTI An Infectious Disease consultation has been obtained with Dr. Connors. abx=ceftriaxone and vancomycin IV Urine culture=Proteus Blood cultures=Proteus We will follow recommendations of Infectious Disease. 2. Diabetes type 2. The patient has been placed on a NovoLog sliding scale. 3. Hypertension. The patient is currently hypotensive. Hold anti-hypertensive medication. 4. History of cerebrovascular disease. Continue aspirin as above. 5. Continue on tube feeding. Wound care. Yannick Marshall MD September 27, 2018 14:52
--- NOTE | 2018-09-27 15:46 | Diagnostic Imaging Report ---
Indications: Needs long-term IV access Technique: Ultrasound confirms patent compressible right basilic vein. Total sterile technique, including sterile probe cover and sterile gel, hat, mask, sterile gown, large sterile drape, and preparation with 2% chlorhexidine utilized. Local anesthesia with 1% lidocaine. Under real-time ultrasound guidance, puncture right basilic vein using 21-gauge needle, documented and archived, passage 0.018 guidewire under direct fluoroscopy, which was used to determine appropriate catheter length, exchange for 4 Chinese peel-away sheath. 4 Chinese Bard dual-lumen power PICC cut to 47 cm. It was inserted through the peel-away sheath. Peel-away sheath and guidewire removed. Catheter fixed to the skin. Both catheter ports aspirated and flushed. Patient tolerated procedure well, without immediate complication. Digital radiograph documents satisfactory catheter tip position, at the cavoatrial junction. Total fluoroscopy time 10.3 seconds. Total dose area product 0.07739 mGym2 Total number of images: 1 Impression: Successful placement of right arm PICC under sonographic and fluoroscopic guidance, as described above.
[2018-09-27 16:00] VITALS: BP 100/59
[2018-09-27] MEDS: cefTRIAXone 1 GM in D5W 55 ML IVPB SCH (16:30)
--- NOTE | 2018-09-27 17:26 | NUR ---
NURSE NOTES: RN changed dressing on patient's left AKA. Morphine administered 15 minutes prior for comfort measures. Patient grabbed RN's hand and grimaced when changing the dressing. RN tried to comfort the patient by explaining procedure, assuring the patient, and using distraction measures. When attempting to pack the wound with iodoform, patient hit the RN's hand. RN attempted to perform dressing change swiftly and thoroughly within the patient's comfort level.
--- NOTE | 2018-09-27 17:42 | Nephrology Progress Note ---
Assessment/Plan Problem List: (1) Renal failure (ARF), acute on chronic (2) Dehydration (3) Hypernatremia (4) PVD (peripheral vascular disease) (5) DM (6) Alzheimer's dementia (7) Feeding by G-tube (8) CVA (cerebral vascular accident) Assessment Acute renal failure ?Underlying chronic renal failure severe dehydration hypernatremia, free water deficit Anemia UTI PVD s/p AKAs Dementia PEG s/p CVA DM Plan HAS IV ACCESS NOW discussed with SARAH Baird IV D5W IV fluid Anemia jorge monitor lytes and renal parameters antibiotics avoid nephrotoxics per orders Subjective ROS Limited/Unobtainable: No Constitutional: Reports: malaise Objective Objective Last 24 Hour Vital Signs Date Time Temp Pulse Resp B/P (MAP) Pulse Ox O2 Delivery O2 Flow Rate FiO2 09/27/18 16:00 98.2 100 18 100/59 (73) 98 09/27/18 12:00 97.6 76 18 103/62 (76) 100 09/27/18 09:20 98 Room Air 21 09/27/18 09:20 Room Air 21 09/27/18 09:20 84 20 Room Air 21 09/27/18 09:00 Room Air 09/27/18 08:00 97.5 83 18 97/58 (71) 98 09/27/18 04:00 97.0 85 18 96/58 (71) 95 09/27/18 00:00 98.1 86 18 95/60 (72) 97 09/26/18 21:05 97 Room Air 21 09/26/18 21:05 82 20 Room Air 21 09/26/18 21:05 Room Air 21 09/26/18 21:00 Room Air 09/26/18 20:00 98.3 92 18 90/56 (67) 97 92 Intake and Output 09/26/18 09/27/18 18:59 06:59 Intake Total 800 ml 810 ml Balance 800 ml 810 ml Intake Free Water 260 ml IV Total 300 ml Tube Feeding 500 ml 550 ml # Voids 4 Laboratory Tests 09/27/18 05:32: White Blood Count 8.5, Red Blood Count 3.88L, Hemoglobin 11.1L, Hematocrit 37.3L , Mean Corpuscular Volume 96, Mean Corpuscular Hemoglobin 28.6, Mean Corpuscular Hemoglobin Concent 29.7L, Red Cell Distribution Width 17.6H, Platelet Count 220, Mean Platelet Volume 8.4, Neutrophils (%) (Auto) 65.5, Lymphocytes (%) (Auto) 29.0, Monocytes (%) (Auto) 3.9, Eosinophils (%) (Auto) 1.4, Basophils (%) (Auto) 0.3, Sodium Level 162*H, Potassium Level 3.5, Chloride Level 127H, Carbon Dioxide Level 26, Anion Gap 10, Blood Urea Nitrogen 55H, Creatinine 1.1, Estimat Glomerular Filtration Rate > 60, Glucose Level 149H , Uric Acid 5.2, Calcium Level 8.5, Phosphorus Level 2.3L, Total Bilirubin 0.2, Direct Bilirubin < 0.1, Aspartate Amino Transf (AST/SGOT) 36, Alanine Aminotransferase (ALT/SGPT) 25, Alkaline Phosphatase 120H, Total Protein 8.0, Albumin 2.1L, Random Vancomycin Level 7.0 Height (Feet): 4 Height (Inches): 0.00 Weight (Pounds): 90 General Appearance: no apparent distress Cardiovascular: tachycardia Respiratory/Chest: decreased breath sounds Abdomen: soft Gennaro Cagle MD September 27, 2018 17:42
[2018-09-27] MEDS ORDERED: Potassium Phosphate 20 MM in NS 275 ML IV SCH (18:30)
--- NOTE | 2018-09-27 19:34 | NUR ---
HAND-OFF: Report given to Ivonne SMIHT.
--- NOTE | 2018-09-27 19:45 | NUR ---
NURSE NOTES: Pt received in bed with head of bed elevated, Gtube feeding in place, Potassium(IV) running, condom catheter in place and draining urine, picc line inserted 09/27/18, pt non verbal, no signs of pain or distress at the moment, will continue to monitor.
[2018-09-27 20:00] VITALS: BP 107/61
[2018-09-27] MEDS: Dyna-Hex 2% Top Sol 2oz TOPIC SCH (21:07)
[2018-09-28] VITALS (7 sets, daily range): BP systolic 85–117; BP diastolic 51–63
[2018-09-28 04:18] LABS: BASOPHILS % (AUTO) 0.3 % (0.0-2.0); EOSINOPHILS % (AUTO) 1.8 % (0.0-3.0); HEMATOCRIT 30.7 % (42.0-52.0); HEMOGLOBIN 9.2 G/DL (14.2-18.0); LYMPHOCYTES % (AUTO) 30.5 % (20.0-45.0); MEAN CORPUSCULAR VOLUME 94 FL (80-99); MONOCYTES % (AUTO) 3.3 % (1.0-10.0); NEUTROPHILS % (AUTO) 64.2 % (45.0-75.0); PLATELET COUNT 194 K/UL (150-450); RED BLOOD COUNT 3.25 M/UL (4.70-6.10); RED CELL DISTRIBUTION WIDTH 16.9 % (11.6-14.8); WHITE BLOOD COUNT 9.2 K/UL (4.8-10.8)
[2018-09-28 04:35] LABS: ALANINE AMINOTRANSFERASE 24 U/L (12-78); ALBUMIN 1.8 G/DL (3.4-5.0); ALBUMIN/GLOBULIN RATIO 0.3 (1.0-2.7); ALKALINE PHOSPHATASE 103 U/L (46-116); ANION GAP 8 mmol/L (5-15); ASPARTATE AMINO TRANSFERASE 26 U/L (15-37); BILIRUBIN,TOTAL 0.2 MG/DL (0.2-1.0); BLOOD UREA NITROGEN 39 mg/dL (7-18); CALCIUM 8.1 MG/DL (8.5-10.1); CARBON DIOXIDE 27 MMOL/L (21-32); CHLORIDE 126 MMOL/L (98-107); CREATININE 0.9 MG/DL (0.55-1.30); PHOSPHORUS 3.4 MG/DL (2.5-4.9); POTASSIUM 3.5 MMOL/L (3.5-5.1)
[2018-09-28 04:38] LABS: SODIUM 161 MMOL/L (136-145)
[2018-09-28] MEDS: NovoLOG Insulin Flexpen SUBQ SCH ×4 (05:59→21:56)
--- NOTE | 2018-09-28 07:36 | NUR ---
HAND-OFF: Report given to SARAH Ortiz.
--- NOTE | 2018-09-28 08:00 | NUR ---
NURSE NOTES: Patient opens eyes when name called but nonverbal,respirations unlabored.IV fluids infusing as ordered.G-tube feedings noted as ordered.No residual noted,abdomen is soft.Pelayo catheter is in place and draining ramesh color urine.HOB is elevated.Noted bilateral AKA,elevated on pillows , dressing Left AKA intact optiform dressing intact.Bed alarm is on.
--- NOTE | 2018-09-28 08:02 | Pulmonology Progress Note ---
Assessment/Plan Assessment/Plan ASSESSMENT Sepsis with Proteus bacteremia 2 to UTI Proteus UTI ATN/acute on chronic renal failure 2 to dehydration Dehydration Hyper Na Hypotension with hx of HTN PVD Bilateral AKA with infected wounds DM Feeding by G tube Hx of CVA Hx of DVT Alzheimer dementia PLAN OF CARE MS floor IVF with D5W monitor renal parameters, lytes, correct lytes as needed, avoid nephrotoxic creat down to normal abx as per ID recs BCX + Proteus, UCX + Proteus, WCX + MRSA s/p 09/25 removal large piece of prior bypass over 30 cm from left AKA wound MRI L femur - no osteo wound care as per surgeon recs leukocytosis resolved O2 HHN prn BP management, off anti-HTN, on Midodrine, hemodynamically stable pain management DVT GI prophylaxis bowel regimen aspir precautions, GT feeding case discussed and evaluated by supervising physician Subjective Allergies: Coded Allergies: No Known Allergies (Unverified , 08/10/18) Subjective leuk resolved, afebrile, no signs of resp distress still high Na Objective Last 24 Hour Vital Signs Date Time Temp Pulse Resp B/P (MAP) Pulse Ox O2 Delivery O2 Flow Rate FiO2 09/28/18 04:00 98.1 87 18 90/56 (67) 96 09/28/18 00:00 98.1 90 18 85/53 (64) 97 09/27/18 21:00 Room Air 09/27/18 20:31 88 18 Room Air 21 09/27/18 20:00 99.4 85 15 107/61 (76) 96 09/27/18 16:00 98.2 100 18 100/59 (73) 98 09/27/18 12:00 97.6 76 18 103/62 (76) 100 09/27/18 09:20 98 Room Air 21 09/27/18 09:20 Room Air 21 09/27/18 09:20 84 20 Room Air 21 09/27/18 09:00 Room Air Intake and Output 09/27/18 09/28/18 19:00 07:00 Output Total 200 ml 800 ml Balance -200 ml -800 ml Output Urine Total 200 ml 800 ml # Voids 4 # Bowel Movements 2 General Appearance: no acute distress, other - chronically ill looking AA male , bedridden HEENT: normocephalic, atraumatic, anicteric Respiratory/Chest: lungs clear Cardiovascular: normal rate, other - RUE PICC intact Abdomen: normal bowel sounds, soft, non tender, other - G tubwe Genitourinary: other - Pelayo Extremities: other - lala AKA with wound Neurologic/Psychiatric: abnormal gait Musculoskeletal: other - lala AKA Laboratory Tests 09/28/18 04:00: White Blood Count 9.2, Red Blood Count 3.25L, Hemoglobin 9.2L, Hematocrit 30.7L , Mean Corpuscular Volume 94, Mean Corpuscular Hemoglobin 28.2, Mean Corpuscular Hemoglobin Concent 29.9L, Red Cell Distribution Width 16.9H, Platelet Count 194, Mean Platelet Volume 8.2, Neutrophils (%) (Auto) 64.2, Lymphocytes (%) (Auto) 30.5, Monocytes (%) (Auto) 3.3, Eosinophils (%) (Auto) 1.8, Basophils (%) (Auto) 0.3, Sodium Level 161*H, Potassium Level 3.5, Chloride Level 126H, Carbon Dioxide Level 27, Anion Gap 8, Blood Urea Nitrogen 39H, Creatinine 0.9, Estimat Glomerular Filtration Rate > 60, Glucose Level 162H , Calcium Level 8.1L, Phosphorus Level 3.4, Magnesium Level 2.3, Total Bilirubin 0.2, Aspartate Amino Transf (AST/SGOT) 26, Alanine Aminotransferase ( ALT/SGPT) 24, Alkaline Phosphatase 103, C-Reactive Protein, Quantitative 2.4H, Pro-B-Type Natriuretic Peptide 1611H, Total Protein 7.0, Albumin 1.8L, Globulin 5.2, Albumin/Globulin Ratio 0.3L Current Medications Medications (Trade) Dose Ordered Sig/Jennifer Route PRN Reason Start Time Stop Time Status Last Admin Dose Admin Acetaminophen (Tylenol) 650 mg Q4H PRN ORAL fever 09/23/18 20:00 10/23/18 19:59 Albuterol/ Ipratropium (Albuterol/ Ipratropium) 3 ml Q4H PRN HHN Shortness of Breath 09/23/18 20:00 09/28/18 19:59 09/25/18 04:16 Ascorbic Acid (Vitamin C) 250 mg TWICE A DAY ORAL 09/26/18 18:00 10/26/18 17:59 09/27/18 17:30 Ceftriaxone Sodium 1 gm/ Dextrose 55 ml @ 110 mls/hr Q24H IVPB 09/26/18 16:00 10/03/18 15:59 09/27/18 16:30 Chlorhexidine Gluconate (Rani-Hex 2%) 1 applic DAILY@2000 TOPIC 09/26/18 20:00 10/26/18 19:59 09/27/18 21:07 Dextrose 1,000 ml @ 100 mls/hr Q10H IV 09/27/18 17:40 10/27/18 17:39 09/27/18 18:06 Dextrose (Dextrose 50%) 25 ml Q30M PRN IV Hypoglycemia 09/24/18 08:00 10/24/18 07:59 Dextrose (Dextrose 50%) 50 ml Q30M PRN IV Hypoglycemia 09/24/18 08:00 10/24/18 07:59 Gadobutrol (Gadavist) 7.5 mmol NOW PRN IV Radiology Procedure 09/24/18 19:15 09/28/18 19:10 Heparin Sodium (Porcine) (Heparin 5000 units/ml) 5,000 units EVERY 12 HOURS SUBQ 09/23/18 21:00 10/23/18 20:59 09/27/18 21:09 Heparin Sodium/ Sodium Chloride (Heparin 1000 units/500ml Premix) 1,000 unit ONCE PRN IV PICC LINE 09/27/18 08:45 09/29/18 08:44 Insulin Aspart (NovoLOG) BEFORE MEALS AND HS SUBQ 09/24/18 11:30 10/24/18 11:29 09/28/18 05:59 Lidocaine HCl (Xylocaine 1% 30ml) 30 ml ONCE PRN INJ PICC LINE 09/27/18 08:45 09/29/18 08:44 Morphine Sulfate (Morphine Sulfate) 2 mg Q4H PRN IVP Moderate Pain (Pain Scale 4-6) 09/23/18 20:00 09/30/18 19:59 09/27/18 17:30 Nitroglycerin (Ntg) 0.4 mg Q5M PRN SL Prn Chest Pain 09/23/18 20:00 10/23/18 19:59 Ondansetron HCl (Zofran) 4 mg Q6H PRN IVP Nausea & Vomiting 09/23/18 20:00 10/23/18 19:59 Pantoprazole (Protonix) 40 mg EVERY 12 HOURS IVP 09/24/18 21:00 10/24/18 20:59 09/26/18 09:06 Polyethylene Glycol (Miralax) 17 gm DAILYPRN PRN ORAL Constipation 09/23/18 20:00 10/23/18 19:59 Quetiapine Fumarate (SEROquel) 12.5 mg BID ORAL 09/24/18 09:00 10/24/18 08:59 09/27/18 17:30 Temazepam (Restoril) 15 mg HSPRN PRN ORAL Insomnia 09/23/18 20:00 09/30/18 19:59 Vancomycin HCl (Vanco rx to dose) 1 ea DAILY PRN MISC Per rx protocol 09/23/18 21:30 10/23/18 21:29 Vancomycin HCl 500 mg/Dextrose 110 ml @ 110 mls/hr Q24H IVPB 09/28/18 10:00 10/03/18 09:59 Stephanie Jessica NP September 28, 2018 08:02
[2018-09-28] MEDS: Ascorbic Acid 500mg tab ORAL SCH ×2 (10:08→18:31)
[2018-09-28] MEDS: Pantoprazole Inj IVP SCH (10:08)
[2018-09-28] MEDS: Vancomycin 500mg/D5W 110ml IVPB SCH ×2 (10:09)
[2018-09-28] MEDS: Heparin 5000 units/ml inj SUBQ SCH ×2 (10:10→21:48)
--- NOTE | 2018-09-28 11:15 | NUR ---
NURSE NOTES: DR Cagle here to see patient,Dr notified of patient low blood pressure,DR state he will write order ,will followup.
--- NOTE | 2018-09-28 11:31 | Infectious Diseases Prog Note ---
Assessment/Plan Assessment/Plan ASSESSMENT: The patient is a 67-year-old male with, Fever, Sp Leukocytosis, Sp Bacteremia/ UTI P Mirabilis Left lower extremity amputee site wound infection, no evid of osteomyelitis. Wnd CX : MRSA 09/25 SP removal of prior bypass graft noted in wound on Left AKA. >30cm graft removed from wound and pus evacuated. 09/25 MRI : No evidence of osteomyelitis Evidence of a sinus tract extending from the lateral medial thigh anterior to the anterior thigh musculature and then cephalad in the medial thigh to the groin. There gas bubbles within it. This may reflect prior instrumentation or could indicate infection with gas-forming organism. Probable pneumonia History of bilateral BKA History of DVT History of diabetes Hypertension History of CVA History of dysphagia Dementia History of alcohol and tobacco and heroin abuse PLAN: Cont the patient on IV vancomycin d# 4/ (upon DC will change to Bactrim PO to complete the course) Cont Rocephin d# 3/ ( upon DC will change to po Keflex to complete the course) 09/27 Sp cefepime d# 2 Monitor CBC Monitor BMP Monitor chest x-ray Surgical fup Subjective Allergies: Coded Allergies: No Known Allergies (Unverified , 08/10/18) Subjective comfortable afebrile Objective Vital Signs Last 24 Hour Vital Signs Date Time Temp Pulse Resp B/P (MAP) Pulse Ox O2 Delivery O2 Flow Rate FiO2 09/28/18 11:10 87 89/51 (64) 09/28/18 08:00 97.6 89 18 86/53 (64) 97 09/28/18 04:00 98.1 87 18 90/56 (67) 96 09/28/18 00:00 98.1 90 18 85/53 (64) 97 09/27/18 21:00 Room Air 09/27/18 20:31 88 18 Room Air 21 09/27/18 20:00 99.4 85 15 107/61 (76) 96 09/27/18 16:00 98.2 100 18 100/59 (73) 98 09/27/18 12:00 97.6 76 18 103/62 (76) 100 Height (Feet): 4 Height (Inches): 0.00 Weight (Pounds): 90 HEENT: atraumatic Respiratory/Chest: no respiratory distress Cardiovascular: regular rhythm Abdomen: no organomegaly Laboratory Tests Test 09/28/18 04:00 White Blood Count 9.2 K/UL (4.8-10.8) Red Blood Count 3.25 M/UL (4.70-6.10) L Hemoglobin 9.2 G/DL (14.2-18.0) L Hematocrit 30.7 % (42.0-52.0) L Mean Corpuscular Volume 94 FL (80-99) Mean Corpuscular Hemoglobin 28.2 PG (27.0-31.0) Mean Corpuscular Hemoglobin Concent 29.9 G/DL (32.0-36.0) L Red Cell Distribution Width 16.9 % (11.6-14.8) H Platelet Count 194 K/UL (150-450) Mean Platelet Volume 8.2 FL (6.5-10.1) Neutrophils (%) (Auto) 64.2 % (45.0-75.0) Lymphocytes (%) (Auto) 30.5 % (20.0-45.0) Monocytes (%) (Auto) 3.3 % (1.0-10.0) Eosinophils (%) (Auto) 1.8 % (0.0-3.0) Basophils (%) (Auto) 0.3 % (0.0-2.0) Sodium Level 161 MMOL/L (136-145) *H Potassium Level 3.5 MMOL/L (3.5-5.1) Chloride Level 126 MMOL/L (98-107) H Carbon Dioxide Level 27 MMOL/L (21-32) Anion Gap 8 mmol/L (5-15) Blood Urea Nitrogen 39 mg/dL (7-18) H Creatinine 0.9 MG/DL (0.55-1.30) Estimat Glomerular Filtration Rate > 60 mL/min (>60) Glucose Level 162 MG/DL (74-106) H Calcium Level 8.1 MG/DL (8.5-10.1) L Phosphorus Level 3.4 MG/DL (2.5-4.9) Magnesium Level 2.3 MG/DL (1.8-2.4) Total Bilirubin 0.2 MG/DL (0.2-1.0) Aspartate Amino Transf (AST/SGOT) 26 U/L (15-37) Alanine Aminotransferase (ALT/SGPT) 24 U/L (12-78) Alkaline Phosphatase 103 U/L (46-116) C-Reactive Protein, Quantitative 2.4 mg/dL (0.00-0.90) H Pro-B-Type Natriuretic Peptide 1611 pg/mL (0-125) H Total Protein 7.0 G/DL (6.4-8.2) Albumin 1.8 G/DL (3.4-5.0) L Globulin 5.2 g/dL Albumin/Globulin Ratio 0.3 (1.0-2.7) L Current Medications Medications (Trade) Dose Ordered Sig/Jennifer Route PRN Reason Start Time Stop Time Status Last Admin Dose Admin Acetaminophen (Tylenol) 650 mg Q4H PRN ORAL fever 09/23/18 20:00 10/23/18 19:59 Albuterol/ Ipratropium (Albuterol/ Ipratropium) 3 ml Q4H PRN HHN Shortness of Breath 09/23/18 20:00 09/28/18 19:59 09/25/18 04:16 Ascorbic Acid (Vitamin C) 250 mg TWICE A DAY ORAL 09/26/18 18:00 10/26/18 17:59 09/28/18 10:08 Ceftriaxone Sodium 1 gm/ Dextrose 55 ml @ 110 mls/hr Q24H IVPB 09/26/18 16:00 10/03/18 15:59 09/27/18 16:30 Chlorhexidine Gluconate (Rani-Hex 2%) 1 applic DAILY@2000 TOPIC 09/26/18 20:00 10/26/18 19:59 09/27/18 21:07 Dextrose 1,000 ml @ 100 mls/hr Q10H IV 09/27/18 17:40 10/27/18 17:39 09/27/18 18:06 Dextrose (Dextrose 50%) 25 ml Q30M PRN IV Hypoglycemia 09/24/18 08:00 10/24/18 07:59 Dextrose (Dextrose 50%) 50 ml Q30M PRN IV Hypoglycemia 09/24/18 08:00 10/24/18 07:59 Gadobutrol (Gadavist) 7.5 mmol NOW PRN IV Radiology Procedure 09/24/18 19:15 09/28/18 19:10 Heparin Sodium (Porcine) (Heparin 5000 units/ml) 5,000 units EVERY 12 HOURS SUBQ 09/23/18 21:00 10/23/18 20:59 09/28/18 10:10 Heparin Sodium/ Sodium Chloride (Heparin 1000 units/500ml Premix) 1,000 unit ONCE PRN IV PICC LINE 09/27/18 08:45 09/29/18 08:44 Insulin Aspart (NovoLOG) BEFORE MEALS AND HS SUBQ 09/24/18 11:30 10/24/18 11:29 09/28/18 05:59 Lidocaine HCl (Xylocaine 1% 30ml) 30 ml ONCE PRN INJ PICC LINE 09/27/18 08:45 09/29/18 08:44 Morphine Sulfate (Morphine Sulfate) 2 mg Q4H PRN IVP Moderate Pain (Pain Scale 4-6) 09/23/18 20:00 09/30/18 19:59 09/27/18 17:30 Nitroglycerin (Ntg) 0.4 mg Q5M PRN SL Prn Chest Pain 09/23/18 20:00 10/23/18 19:59 Ondansetron HCl (Zofran) 4 mg Q6H PRN IVP Nausea & Vomiting 09/23/18 20:00 10/23/18 19:59 Pantoprazole (Protonix) 40 mg EVERY 12 HOURS IVP 09/24/18 21:00 10/24/18 20:59 09/28/18 10:08 Polyethylene Glycol (Miralax) 17 gm DAILYPRN PRN ORAL Constipation 09/23/18 20:00 10/23/18 19:59 Quetiapine Fumarate (SEROquel) 12.5 mg BID ORAL 09/24/18 09:00 10/24/18 08:59 09/28/18 10:08 Temazepam (Restoril) 15 mg HSPRN PRN ORAL Insomnia 09/23/18 20:00 09/30/18 19:59 Vancomycin HCl (Vanco rx to dose) 1 ea DAILY PRN MISC Per rx protocol 09/23/18 21:30 10/23/18 21:29 Vancomycin HCl 500 mg/Dextrose 110 ml @ 110 mls/hr Q24H IVPB 09/28/18 10:00 10/03/18 09:59 09/28/18 10:09 Percy Connors MD September 28, 2018 11:31
--- NOTE | 2018-09-28 12:13 | Nephrology Progress Note ---
Assessment/Plan Problem List: (1) Renal failure (ARF), acute on chronic (2) Dehydration (3) Hypernatremia (4) PVD (peripheral vascular disease) (5) DM (6) Alzheimer's dementia (7) Feeding by G-tube (8) CVA (cerebral vascular accident) Assessment Acute renal failure ?Underlying chronic renal failure severe dehydration hypernatremia, free water deficit Anemia UTI PVD s/p AKAs Dementia PEG s/p CVA DM Plan HAS IV ACCESS NOW discussed with SARAH Patterson for low bp K Phos IV as needed D5W IV fluid as needed Anemia jorge monitor lytes and renal parameters antibiotics avoid nephrotoxics per orders Subjective ROS Limited/Unobtainable: No Constitutional: Reports: malaise Objective Objective Last 24 Hour Vital Signs Date Time Temp Pulse Resp B/P (MAP) Pulse Ox O2 Delivery O2 Flow Rate FiO2 09/28/18 11:10 87 89/51 (64) 09/28/18 09:00 Room Air 09/28/18 08:00 97.6 89 18 86/53 (64) 97 09/28/18 04:00 98.1 87 18 90/56 (67) 96 09/28/18 00:00 98.1 90 18 85/53 (64) 97 09/27/18 21:00 Room Air 09/27/18 20:31 88 18 Room Air 21 09/27/18 20:00 99.4 85 15 107/61 (76) 96 09/27/18 16:00 98.2 100 18 100/59 (73) 98 Intake and Output 09/27/18 09/28/18 19:00 07:00 Output Total 200 ml 800 ml Balance -200 ml -800 ml Output Urine Total 200 ml 800 ml # Voids 4 # Bowel Movements 2 Laboratory Tests 09/28/18 04:00: White Blood Count 9.2, Red Blood Count 3.25L, Hemoglobin 9.2L, Hematocrit 30.7L , Mean Corpuscular Volume 94, Mean Corpuscular Hemoglobin 28.2, Mean Corpuscular Hemoglobin Concent 29.9L, Red Cell Distribution Width 16.9H, Platelet Count 194, Mean Platelet Volume 8.2, Neutrophils (%) (Auto) 64.2, Lymphocytes (%) (Auto) 30.5, Monocytes (%) (Auto) 3.3, Eosinophils (%) (Auto) 1.8, Basophils (%) (Auto) 0.3, Sodium Level 161*H, Potassium Level 3.5, Chloride Level 126H, Carbon Dioxide Level 27, Anion Gap 8, Blood Urea Nitrogen 39H, Creatinine 0.9, Estimat Glomerular Filtration Rate > 60, Glucose Level 162H , Calcium Level 8.1L, Phosphorus Level 3.4, Magnesium Level 2.3, Total Bilirubin 0.2, Aspartate Amino Transf (AST/SGOT) 26, Alanine Aminotransferase ( ALT/SGPT) 24, Alkaline Phosphatase 103, C-Reactive Protein, Quantitative 2.4H, Pro-B-Type Natriuretic Peptide 1611H, Total Protein 7.0, Albumin 1.8L, Globulin 5.2, Albumin/Globulin Ratio 0.3L Height (Feet): 4 Height (Inches): 0.00 Weight (Pounds): 90 General Appearance: no apparent distress Cardiovascular: normal rate Respiratory/Chest: decreased breath sounds Abdomen: soft Gennaro Cagle MD September 28, 2018 12:13
--- NOTE | 2018-09-28 12:57 | Surgery Progress Note ---
Surgery Progress Note Subjective Additional Comments no acute events comfortable stable pain improved tolerating feeds Objective Last 24 Hour Vital Signs Date Time Temp Pulse Resp B/P (MAP) Pulse Ox O2 Delivery O2 Flow Rate FiO2 09/28/18 11:10 87 89/51 (64) 09/28/18 09:00 Room Air 09/28/18 08:00 97.6 89 18 86/53 (64) 97 09/28/18 04:00 98.1 87 18 90/56 (67) 96 09/28/18 00:00 98.1 90 18 85/53 (64) 97 09/27/18 21:00 Room Air 09/27/18 20:31 88 18 Room Air 21 09/27/18 20:00 99.4 85 15 107/61 (76) 96 09/27/18 16:00 98.2 100 18 100/59 (73) 98 I&O Intake and Output 09/27/18 09/28/18 19:00 07:00 Output Total 200 ml 800 ml Balance -200 ml -800 ml Output Urine Total 200 ml 800 ml # Voids 4 # Bowel Movements 2 Dressing: saturated, other Wound: clean Drains: other Cardiovascular: RSR Respiratory: clear Abdomen: soft, flat, present bowel sounds, non-distended Extremities: no tenderness, no cyanosis Laboratory Tests Test 09/28/18 04:00 White Blood Count 9.2 K/UL (4.8-10.8) Red Blood Count 3.25 M/UL (4.70-6.10) L Hemoglobin 9.2 G/DL (14.2-18.0) L Hematocrit 30.7 % (42.0-52.0) L Mean Corpuscular Volume 94 FL (80-99) Mean Corpuscular Hemoglobin 28.2 PG (27.0-31.0) Mean Corpuscular Hemoglobin Concent 29.9 G/DL (32.0-36.0) L Red Cell Distribution Width 16.9 % (11.6-14.8) H Platelet Count 194 K/UL (150-450) Mean Platelet Volume 8.2 FL (6.5-10.1) Neutrophils (%) (Auto) 64.2 % (45.0-75.0) Lymphocytes (%) (Auto) 30.5 % (20.0-45.0) Monocytes (%) (Auto) 3.3 % (1.0-10.0) Eosinophils (%) (Auto) 1.8 % (0.0-3.0) Basophils (%) (Auto) 0.3 % (0.0-2.0) Sodium Level 161 MMOL/L (136-145) *H Potassium Level 3.5 MMOL/L (3.5-5.1) Chloride Level 126 MMOL/L (98-107) H Carbon Dioxide Level 27 MMOL/L (21-32) Anion Gap 8 mmol/L (5-15) Blood Urea Nitrogen 39 mg/dL (7-18) H Creatinine 0.9 MG/DL (0.55-1.30) Estimat Glomerular Filtration Rate > 60 mL/min (>60) Glucose Level 162 MG/DL (74-106) H Calcium Level 8.1 MG/DL (8.5-10.1) L Phosphorus Level 3.4 MG/DL (2.5-4.9) Magnesium Level 2.3 MG/DL (1.8-2.4) Total Bilirubin 0.2 MG/DL (0.2-1.0) Aspartate Amino Transf (AST/SGOT) 26 U/L (15-37) Alanine Aminotransferase (ALT/SGPT) 24 U/L (12-78) Alkaline Phosphatase 103 U/L (46-116) C-Reactive Protein, Quantitative 2.4 mg/dL (0.00-0.90) H Pro-B-Type Natriuretic Peptide 1611 pg/mL (0-125) H Total Protein 7.0 G/DL (6.4-8.2) Albumin 1.8 G/DL (3.4-5.0) L Globulin 5.2 g/dL Albumin/Globulin Ratio 0.3 (1.0-2.7) L Plan Problems: (1) CVA (cerebral vascular accident) (2) Feeding by G-tube (3) Alzheimer's dementia (4) DM (5) Hypernatremia (6) ATN (acute tubular necrosis) (7) PVD (peripheral vascular disease) (8) Sepsis (9) UTI (urinary tract infection) (10) Renal failure (ARF), acute on chronic (11) Dehydration (12) Hypernatremia (13) Iron deficiency anemia (14) Foreign body (FB) in soft tissue Assessment & Plan: reviewed and sent to path cont with local wound care as below (15) Decubitus skin ulcer Assessment & Plan: Hx. of Chele ÁLVAREZ presented on admission with multiple wounds. Non-blanchable erythema with a small area of induration L sacrum. #2 small partial thickness wounds (R) sacrum (proximal)0.4cm x (W)0.5cm,(Inferior) (L)0.5cm x (W)0.3cm . Both wounds are moist and viable. Erythema noted to base of scrotum. NBE noted to R R hip /R trochanteric. At distal/dorsal aspect of L AKA an area of non-blanchable erythema with purulent head centrally over bony prominence. No elevation in skin temp noted. Full thickness wound noted at base of L AKA along Historical incision line.Wound exuding moderate amts of purulent exudate. Erythema noted along borders. No odor noted. Pt exhibits pain when wound is minimally palpated. long piece of prior bypass graft noted in wound on Left AKA. >30cm graft removed from wound and pus evacuated. wound cleaned and packing and dressing applied. specimen sent for path. cultures taken Tx.Plan: Cleanse L AKA wound with Saline. Pack wound with Iodoform 1/2 packing strip. Cover with ABD Pad. Wrap with Kerlix Daily and prn. Apply Betadine to Wound dorsal aspect of L AKA. Cover with Optifoam drsg. Change every 3 days and prn. Apply Triad Paste to Sacrum. Cover with Optifoam drsg. Change every 3 days and prn. Apply Triad Paste to groin areas,Ischial areas and scrotum with each perineal care. APM/KEZIA Mattress overlay. Reposition at least every 2hours or as tolerated. Emiliano Martinez September 28, 2018 12:57
[2018-09-28] MEDS ORDERED: Albuterol/Ipratropium 3ml neb HHN PRN (13:24)
--- NOTE | 2018-09-28 14:51 | Internal Med Progress Note ---
Subjective Date of Service: September 28, 2018 Physician Name Darrick Stout Attending Physician Yannick Marshall MD Current Medications Medications (Trade) Dose Ordered Sig/Jennifer Route PRN Reason Start Time Stop Time Status Last Admin Dose Admin Acetaminophen (Tylenol) 650 mg Q4H PRN ORAL fever 09/23/18 20:00 10/23/18 19:59 Albuterol/ Ipratropium (Albuterol/ Ipratropium) 3 ml Q4H PRN HHN Shortness of Breath 09/28/18 13:24 10/03/18 13:23 Ascorbic Acid (Vitamin C) 250 mg TWICE A DAY ORAL 09/26/18 18:00 10/26/18 17:59 09/28/18 10:08 Ceftriaxone Sodium 1 gm/ Dextrose 55 ml @ 110 mls/hr Q24H IVPB 09/26/18 16:00 10/03/18 15:59 09/27/18 16:30 Chlorhexidine Gluconate (Rani-Hex 2%) 1 applic DAILY@2000 TOPIC 09/26/18 20:00 10/26/18 19:59 09/27/18 21:07 Dextrose 1,000 ml @ 100 mls/hr Q10H IV 09/27/18 17:40 10/27/18 17:39 09/28/18 13:01 Dextrose (Dextrose 50%) 25 ml Q30M PRN IV Hypoglycemia 09/24/18 08:00 10/24/18 07:59 Dextrose (Dextrose 50%) 50 ml Q30M PRN IV Hypoglycemia 09/24/18 08:00 10/24/18 07:59 Gadobutrol (Gadavist) 7.5 mmol NOW PRN IV Radiology Procedure 09/24/18 19:15 09/28/18 19:10 Heparin Sodium (Porcine) (Heparin 5000 units/ml) 5,000 units EVERY 12 HOURS SUBQ 09/23/18 21:00 10/23/18 20:59 09/28/18 10:10 Heparin Sodium/ Sodium Chloride (Heparin 1000 units/500ml Premix) 1,000 unit ONCE PRN IV PICC LINE 09/27/18 08:45 09/29/18 08:44 Insulin Aspart (NovoLOG) BEFORE MEALS AND HS SUBQ 09/24/18 11:30 10/24/18 11:29 09/28/18 12:57 Lansoprazole (Prevacid) 30 mg BID GT 09/28/18 18:00 10/28/18 17:59 Lidocaine HCl (Xylocaine 1% 30ml) 30 ml ONCE PRN INJ PICC LINE 09/27/18 08:45 09/29/18 08:44 Midodrine (Pro-Amatine) 2.5 mg THREE TIMES A DAY GT 09/28/18 13:00 10/28/18 12:59 09/28/18 13:01 Morphine Sulfate (Morphine Sulfate) 2 mg Q4H PRN IVP Moderate Pain (Pain Scale 4-6) 09/23/18 20:00 09/30/18 19:59 09/27/18 17:30 Nitroglycerin (Ntg) 0.4 mg Q5M PRN SL Prn Chest Pain 09/23/18 20:00 10/23/18 19:59 Ondansetron HCl (Zofran) 4 mg Q6H PRN IVP Nausea & Vomiting 09/23/18 20:00 10/23/18 19:59 Polyethylene Glycol (Miralax) 17 gm DAILYPRN PRN ORAL Constipation 09/23/18 20:00 10/23/18 19:59 Quetiapine Fumarate (SEROquel) 12.5 mg BID ORAL 09/24/18 09:00 10/24/18 08:59 09/28/18 10:08 Temazepam (Restoril) 15 mg HSPRN PRN ORAL Insomnia 09/23/18 20:00 09/30/18 19:59 Vancomycin HCl (Vanco rx to dose) 1 ea DAILY PRN MISC Per rx protocol 09/23/18 21:30 10/23/18 21:29 Vancomycin HCl 500 mg/Dextrose 110 ml @ 110 mls/hr Q24H IVPB 09/28/18 10:00 10/03/18 09:59 09/28/18 10:09 Allergies: Coded Allergies: No Known Allergies (Unverified , 08/10/18) ROS Limited/Unobtainable: Yes Subjective 67 YO M admitted with leukocytosis. Now UTI and sepsis. Cover for Int isabella-DR Marshall Objective Last Vital Signs Date Time Temp Pulse Resp B/P (MAP) Pulse Ox O2 Delivery O2 Flow Rate FiO2 09/28/18 12:00 98.6 84 17 99/55 (70) 97 09/28/18 09:00 Room Air 09/27/18 20:31 21 09/26/18 09:00 2.0 Laboratory Tests Test 09/28/18 04:00 White Blood Count 9.2 K/UL (4.8-10.8) Red Blood Count 3.25 M/UL (4.70-6.10) L Hemoglobin 9.2 G/DL (14.2-18.0) L Hematocrit 30.7 % (42.0-52.0) L Mean Corpuscular Volume 94 FL (80-99) Mean Corpuscular Hemoglobin 28.2 PG (27.0-31.0) Mean Corpuscular Hemoglobin Concent 29.9 G/DL (32.0-36.0) L Red Cell Distribution Width 16.9 % (11.6-14.8) H Platelet Count 194 K/UL (150-450) Mean Platelet Volume 8.2 FL (6.5-10.1) Neutrophils (%) (Auto) 64.2 % (45.0-75.0) Lymphocytes (%) (Auto) 30.5 % (20.0-45.0) Monocytes (%) (Auto) 3.3 % (1.0-10.0) Eosinophils (%) (Auto) 1.8 % (0.0-3.0) Basophils (%) (Auto) 0.3 % (0.0-2.0) Sodium Level 161 MMOL/L (136-145) *H Potassium Level 3.5 MMOL/L (3.5-5.1) Chloride Level 126 MMOL/L (98-107) H Carbon Dioxide Level 27 MMOL/L (21-32) Anion Gap 8 mmol/L (5-15) Blood Urea Nitrogen 39 mg/dL (7-18) H Creatinine 0.9 MG/DL (0.55-1.30) Estimat Glomerular Filtration Rate > 60 mL/min (>60) Glucose Level 162 MG/DL (74-106) H Calcium Level 8.1 MG/DL (8.5-10.1) L Phosphorus Level 3.4 MG/DL (2.5-4.9) Magnesium Level 2.3 MG/DL (1.8-2.4) Total Bilirubin 0.2 MG/DL (0.2-1.0) Aspartate Amino Transf (AST/SGOT) 26 U/L (15-37) Alanine Aminotransferase (ALT/SGPT) 24 U/L (12-78) Alkaline Phosphatase 103 U/L (46-116) C-Reactive Protein, Quantitative 2.4 mg/dL (0.00-0.90) H Pro-B-Type Natriuretic Peptide 1611 pg/mL (0-125) H Total Protein 7.0 G/DL (6.4-8.2) Albumin 1.8 G/DL (3.4-5.0) L Globulin 5.2 g/dL Albumin/Globulin Ratio 0.3 (1.0-2.7) L Intake and Output 09/27/18 09/28/18 19:00 07:00 Output Total 200 ml 800 ml Balance -200 ml -800 ml Output Urine Total 200 ml 800 ml # Voids 4 # Bowel Movements 2 Objective PHYSICAL EXAMINATION: GENERAL: The patient is a well-developed and well-nourished male in no apparent distress. HEENT: Eyes, pupils are equal and responsive to light and accommodation. Extraocular movements are intact. NECK: Supple without lymphadenopathy. CHEST: Lungs are clear to auscultation bilaterally without wheezes or rales. CARDIOVASCULAR: Tachycardic, regular rate and rhythm . S1 and S2 are normal without murmurs, rubs, or gallops. ABDOMEN: Soft, nontender, and nondistended. Positive bowel sounds. No evidence of hepatosplenomegaly. Currently, no rebound or guarding noted. EXTREMITIES: Bilateral [id number]-[id number]-exny amputation. Otherwise, without cyanosis. NEUROLOGIC: Cranial nerves II through XII are grossly intact without focal deficits. Assessment/Plan Assessment/Plan ASSESSMENT: This is a 67-year-old male. 1. Leukocytosis. 2. sepsis=Proteus Mirabilis 3. Diabetes type 2. 4. Hypertension. 5. Cerebrovascular disease. 6. Alzheimer's dementia. 7. History of polysubstance abuse. 8. UTI=Proteus mirabilis 9. bilateral above the knee amputation TREATMENT: 1. Leukocytosis/sepsis/UTI An Infectious Disease consultation has been obtained with Dr. Connors. abx=ceftriaxone D/C vancomycin Urine culture=Proteus Blood cultures=Proteus We will follow recommendations of Infectious Disease. 2. Diabetes type 2. The patient has been placed on a NovoLog sliding scale. 3. Hypertension. The patient is currently hypotensive. Hold anti-hypertensive medication. 4. History of cerebrovascular disease. Continue aspirin as above. 5. Bilateral [id number] amputation-see surgery note. Darrick Stout MD September 28, 2018 14:51
[2018-09-28] MEDS: cefTRIAXone 1 GM in D5W 55 ML IVPB SCH (18:31)
--- NOTE | 2018-09-28 19:00 | NUR ---
NURSE NOTES: Patient continue to tolerate G_tube feedings,patient had soft brown BM,skin care given,bed alarm on HOB is elevated.
--- NOTE | 2018-09-28 19:40 | NUR ---
HAND-OFF: Report given to Ivonne SMITH.
--- NOTE | 2018-09-28 20:08 | NUR ---
NURSE NOTES: Pt received in bed with head of bed elevated, Gtube feeding running, IV fluids running, condom catheter in place and draining urine, will continue to monitor.
[2018-09-28] MEDS: Dyna-Hex 2% Top Sol 2oz TOPIC SCH (21:47)
[2018-09-29] VITALS: BP 88/51
[2018-09-29 04:00] VITALS: BP 102/55
[2018-09-29] MEDS: NovoLOG Insulin Flexpen SUBQ SCH ×4 (06:25→20:35)
[2018-09-29 07:13] LABS: ALANINE AMINOTRANSFERASE 20 U/L (12-78); ALBUMIN 1.5 G/DL (3.4-5.0); ALBUMIN/GLOBULIN RATIO 0.3 (1.0-2.7); ALKALINE PHOSPHATASE 99 U/L (46-116); ANION GAP 7 mmol/L (5-15); ASPARTATE AMINO TRANSFERASE 25 U/L (15-37); BILIRUBIN,TOTAL 0.2 MG/DL (0.2-1.0); BLOOD UREA NITROGEN 27 mg/dL (7-18); CALCIUM 7.9 MG/DL (8.5-10.1); CARBON DIOXIDE 27 MMOL/L (21-32); CHLORIDE 123 MMOL/L (98-107); CREATININE 0.7 MG/DL (0.55-1.30); PHOSPHORUS 1.7 MG/DL (2.5-4.9); POTASSIUM 3.2 MMOL/L (3.5-5.1); SODIUM 157 MMOL/L (136-145)
--- NOTE | 2018-09-29 07:26 | NUR ---
NURSE NOTES: Patient is awake and alert to name,respiration unlabored.G-tube feeding as ordered,IV fluids infusing as ordered.Condom catheter with yellow urine.HOB is elevated.Bed alarm is on.
[2018-09-29 07:29] LABS: BASOPHILS % (AUTO) 0.4 % (0.0-2.0); EOSINOPHILS % (AUTO) 1.3 % (0.0-3.0); HEMATOCRIT 27.7 % (42.0-52.0); HEMOGLOBIN 8.4 G/DL (14.2-18.0); LYMPHOCYTES % (AUTO) 32.9 % (20.0-45.0); MEAN CORPUSCULAR VOLUME 94 FL (80-99); MONOCYTES % (AUTO) 4.1 % (1.0-10.0); NEUTROPHILS % (AUTO) 61.3 % (45.0-75.0); PLATELET COUNT 174 K/UL (150-450); RED BLOOD COUNT 2.94 M/UL (4.70-6.10); RED CELL DISTRIBUTION WIDTH 16.8 % (11.6-14.8); WHITE BLOOD COUNT 8.8 K/UL (4.8-10.8)
--- NOTE | 2018-09-29 07:36 | NUR ---
HAND-OFF: Report given to SARAH Ortiz.
[2018-09-29 08:00] VITALS: BP 101/55
--- NOTE | 2018-09-29 08:02 | Pulmonology Progress Note ---
Assessment/Plan Assessment/Plan ASSESSMENT Sepsis with Proteus bacteremia 2 to UTI Proteus UTI ATN/acute on chronic renal failure 2 to dehydration Dehydration Hyper Na Hypotension with hx of HTN PVD Bilateral AKA with infected wounds DM Feeding by G tube Hx of CVA Hx of DVT Alzheimer dementia PLAN OF CARE MS floor IVF with D5W monitor renal parameters, lytes, correct lytes as needed, avoid nephrotoxic creat down to normal abx as per ID recs BCX + Proteus, UCX + Proteus, WCX + MRSA s/p 09/25 removal large piece of prior bypass over 30 cm from left AKA wound MRI L femur - no osteo wound care as per surgeon recs leukocytosis resolved O2 HHN prn BP management, off anti-HTN, on Midodrine, hemodynamically stable pain management DVT GI prophylaxis bowel regimen aspir precautions, GT feeding case discussed and evaluated by supervising physician Subjective Allergies: Coded Allergies: No Known Allergies (Unverified , 08/10/18) Subjective leuk resolved, afebrile, no signs of resp distress still high Na but with trend down Objective Last 24 Hour Vital Signs Date Time Temp Pulse Resp B/P (MAP) Pulse Ox O2 Delivery O2 Flow Rate FiO2 09/29/18 04:00 99.5 83 24 102/55 (71) 99 09/29/18 00:00 99.2 87 24 88/51 (63) 96 09/28/18 21:00 Room Air 09/28/18 20:00 98.6 78 24 117/63 (81) 97 09/28/18 19:54 68 18 Room Air 21 09/28/18 16:00 98.6 66 18 88/55 (66) 99 09/28/18 12:00 98.6 84 17 99/55 (70) 97 09/28/18 11:10 87 89/51 (64) 09/28/18 09:00 Room Air Intake and Output 09/28/18 09/29/18 19:00 07:00 Intake Total 1750 ml 1250 ml Output Total 2100 ml 1350 ml Balance -350 ml -100 ml Intake Free Water 150 ml 250 ml IV Total 1100 ml 500 ml Tube Feeding 500 ml 500 ml Output Urine Total 2100 ml 1350 ml Objective General Appearance: no acute distress, chronically ill looking AA male , bedridden HEENT: normocephalic, atraumatic, anicteric Respiratory/Chest: lungs clear Cardiovascular: normal rate, RUE PICC intact Abdomen: normal bowel sounds, soft, non tender, G tube Genitourinary: Pel[place]o Extremities: lala AKA with wounds Neurologic/Psychiatric: abnormal gait Musculoskeletal: lala AKA Laboratory Tests 09/29/18 04:50: White Blood Count 8.8, Red Blood Count 2.94L, Hemoglobin 8.4L, Hematocrit 27.7L , Mean Corpuscular Volume 94, Mean Corpuscular Hemoglobin 28.5, Mean Corpuscular Hemoglobin Concent 30.3L, Red Cell Distribution Width 16.8H, Platelet Count 174, Mean Platelet Volume 10.0, Neutrophils (%) (Auto) 61.3, Lymphocytes (%) (Auto) 32.9, Monocytes (%) (Auto) 4.1, Eosinophils (%) (Auto) 1.3, Basophils (%) (Auto) 0.4, Sodium Level 157H, Potassium Level 3.2L, Chloride Level 123H, Carbon Dioxide Level 27, Anion Gap 7, Blood Urea Nitrogen 27H, Creatinine 0.7, Estimat Glomerular Filtration Rate > 60, Glucose Level 123H , Uric Acid 3.0, Calcium Level 7.9L, Phosphorus Level 1.7L, Magnesium Level 1.9 , Total Bilirubin 0.2, Aspartate Amino Transf (AST/SGOT) 25, Alanine Aminotransferase (ALT/SGPT) 20, Alkaline Phosphatase 99, Total Protein 6.6, Albumin 1.5L, Globulin 5.1, Albumin/Globulin Ratio 0.3L Current Medications Medications (Trade) Dose Ordered Sig/Jennifer Route PRN Reason Start Time Stop Time Status Last Admin Dose Admin Acetaminophen (Tylenol) 650 mg Q4H PRN ORAL fever 09/23/18 20:00 10/23/18 19:59 Albuterol/ Ipratropium (Albuterol/ Ipratropium) 3 ml Q4H PRN HHN Shortness of Breath 09/28/18 13:24 10/03/18 13:23 Ascorbic Acid (Vitamin C) 250 mg TWICE A DAY ORAL 09/26/18 18:00 10/26/18 17:59 09/28/18 18:31 Ceftriaxone Sodium 1 gm/ Dextrose 55 ml @ 110 mls/hr Q24H IVPB 09/26/18 16:00 10/03/18 15:59 09/28/18 18:31 Chlorhexidine Gluconate (Rani-Hex 2%) 1 applic DAILY@2000 TOPIC 09/26/18 20:00 10/26/18 19:59 09/28/18 21:47 Dextrose 1,000 ml @ 100 mls/hr Q10H IV 09/27/18 17:40 10/27/18 17:39 09/29/18 00:08 Dextrose (Dextrose 50%) 25 ml Q30M PRN IV Hypoglycemia 09/24/18 08:00 10/24/18 07:59 Dextrose (Dextrose 50%) 50 ml Q30M PRN IV Hypoglycemia 09/24/18 08:00 10/24/18 07:59 Heparin Sodium (Porcine) (Heparin 5000 units/ml) 5,000 units EVERY 12 HOURS SUBQ 09/23/18 21:00 10/23/18 20:59 09/28/18 21:48 Heparin Sodium/ Sodium Chloride (Heparin 1000 units/500ml Premix) 1,000 unit ONCE PRN IV PICC LINE 09/27/18 08:45 09/29/18 08:44 Insulin Aspart (NovoLOG) BEFORE MEALS AND HS SUBQ 09/24/18 11:30 10/24/18 11:29 09/29/18 06:25 Lansoprazole (Prevacid) 30 mg BID GT 09/28/18 18:00 10/28/18 17:59 09/28/18 18:31 Lidocaine HCl (Xylocaine 1% 30ml) 30 ml ONCE PRN INJ PICC LINE 09/27/18 08:45 09/29/18 08:44 Midodrine (Pro-Amatine) 2.5 mg THREE TIMES A DAY GT 09/28/18 13:00 10/28/18 12:59 09/28/18 18:30 Morphine Sulfate (Morphine Sulfate) 2 mg Q4H PRN IVP Moderate Pain (Pain Scale 4-6) 09/23/18 20:00 09/30/18 19:59 09/27/18 17:30 Nitroglycerin (Ntg) 0.4 mg Q5M PRN SL Prn Chest Pain 09/23/18 20:00 10/23/18 19:59 Ondansetron HCl (Zofran) 4 mg Q6H PRN IVP Nausea & Vomiting 09/23/18 20:00 10/23/18 19:59 Polyethylene Glycol (Miralax) 17 gm DAILYPRN PRN ORAL Constipation 09/23/18 20:00 10/23/18 19:59 Quetiapine Fumarate (SEROquel) 12.5 mg BID ORAL 09/24/18 09:00 10/24/18 08:59 09/28/18 18:30 Temazepam (Restoril) 15 mg HSPRN PRN ORAL Insomnia 09/23/18 20:00 09/30/18 19:59 Vancomycin HCl (Vanco rx to dose) 1 ea DAILY PRN MISC Per rx protocol 09/23/18 21:30 10/23/18 21:29 Vancomycin HCl 500 mg/Dextrose 110 ml @ 110 mls/hr Q24H IVPB 09/28/18 10:00 10/03/18 09:59 09/28/18 10:09 Stephanie Jessica NP September 29, 2018 08:02
[2018-09-29] MEDS: Ascorbic Acid 500mg tab ORAL SCH ×2 (09:22→18:26)
[2018-09-29] MEDS: Heparin 5000 units/ml inj SUBQ SCH ×3 (09:23→20:36)
[2018-09-29] MEDS ORDERED: Potassium Phosphate 15 MM in NS 275 ML IV SCH (10:00)
[2018-09-29] MEDS: Vancomycin 500mg/D5W 110ml IVPB SCH ×2 (10:17)
[2018-09-29 12:00] VITALS: BP 100/71
--- NOTE | 2018-09-29 13:35 | Surgery Progress Note ---
Surgery Progress Note Subjective Additional Comments no acute events. stable. comfortable. Objective Last 24 Hour Vital Signs Date Time Temp Pulse Resp B/P (MAP) Pulse Ox O2 Delivery O2 Flow Rate FiO2 09/29/18 12:00 98.7 76 18 100/71 (81) 97 09/29/18 09:00 Room Air 09/29/18 08:00 97.8 83 18 101/55 (70) 95 09/29/18 07:43 73 18 Room Air 21 09/29/18 04:00 99.5 83 24 102/55 (71) 99 09/29/18 00:00 99.2 87 24 88/51 (63) 96 09/28/18 21:00 Room Air 09/28/18 20:00 98.6 78 24 117/63 (81) 97 09/28/18 19:54 68 18 Room Air 21 09/28/18 16:00 98.6 66 18 88/55 (66) 99 I&O Intake and Output 09/28/18 09/29/18 19:00 07:00 Intake Total 1750 ml 1250 ml Output Total 2100 ml 1350 ml Balance -350 ml -100 ml Intake Free Water 150 ml 250 ml IV Total 1100 ml 500 ml Tube Feeding 500 ml 500 ml Output Urine Total 2100 ml 1350 ml Dressing: other Wound: other Drains: other Cardiovascular: RSR Respiratory: clear Abdomen: soft, flat, non-tender, present bowel sounds, non-distended Extremities: no tenderness, no cyanosis Laboratory Tests Test 09/29/18 04:50 White Blood Count 8.8 K/UL (4.8-10.8) Red Blood Count 2.94 M/UL (4.70-6.10) L Hemoglobin 8.4 G/DL (14.2-18.0) L Hematocrit 27.7 % (42.0-52.0) L Mean Corpuscular Volume 94 FL (80-99) Mean Corpuscular Hemoglobin 28.5 PG (27.0-31.0) Mean Corpuscular Hemoglobin Concent 30.3 G/DL (32.0-36.0) L Red Cell Distribution Width 16.8 % (11.6-14.8) H Platelet Count 174 K/UL (150-450) Mean Platelet Volume 10.0 FL (6.5-10.1) Neutrophils (%) (Auto) 61.3 % (45.0-75.0) Lymphocytes (%) (Auto) 32.9 % (20.0-45.0) Monocytes (%) (Auto) 4.1 % (1.0-10.0) Eosinophils (%) (Auto) 1.3 % (0.0-3.0) Basophils (%) (Auto) 0.4 % (0.0-2.0) Sodium Level 157 MMOL/L (136-145) H Potassium Level 3.2 MMOL/L (3.5-5.1) L Chloride Level 123 MMOL/L (98-107) H Carbon Dioxide Level 27 MMOL/L (21-32) Anion Gap 7 mmol/L (5-15) Blood Urea Nitrogen 27 mg/dL (7-18) H Creatinine 0.7 MG/DL (0.55-1.30) Estimat Glomerular Filtration Rate > 60 mL/min (>60) Glucose Level 123 MG/DL (74-106) H Uric Acid 3.0 MG/DL (2.6-7.2) Calcium Level 7.9 MG/DL (8.5-10.1) L Phosphorus Level 1.7 MG/DL (2.5-4.9) L Magnesium Level 1.9 MG/DL (1.8-2.4) Total Bilirubin 0.2 MG/DL (0.2-1.0) Aspartate Amino Transf (AST/SGOT) 25 U/L (15-37) Alanine Aminotransferase (ALT/SGPT) 20 U/L (12-78) Alkaline Phosphatase 99 U/L (46-116) Total Protein 6.6 G/DL (6.4-8.2) Albumin 1.5 G/DL (3.4-5.0) L Globulin 5.1 g/dL Albumin/Globulin Ratio 0.3 (1.0-2.7) L Plan Problems: (1) CVA (cerebral vascular accident) (2) Feeding by G-tube (3) Alzheimer's dementia (4) DM (5) Hypernatremia (6) ATN (acute tubular necrosis) (7) PVD (peripheral vascular disease) (8) Sepsis (9) UTI (urinary tract infection) (10) Renal failure (ARF), acute on chronic (11) Dehydration (12) Hypernatremia (13) Iron deficiency anemia (14) Foreign body (FB) in soft tissue Assessment & Plan: reviewed and sent to path cont with local wound care as below (15) Decubitus skin ulcer Assessment & Plan: Hx. of Chele ÁLVAREZ presented on admission with multiple wounds. Non-blanchable erythema with a small area of induration L sacrum. #2 small partial thickness wounds (R) sacrum (proximal)0.4cm x (W)0.5cm,(Inferior) (L)0.5cm x (W)0.3cm . Both wounds are moist and viable. Erythema noted to base of scrotum. NBE noted to R R hip /R trochanteric. At distal/dorsal aspect of L AKA an area of non-blanchable erythema with purulent head centrally over bony prominence. No elevation in skin temp noted. Full thickness wound noted at base of L AKA along Historical incision line.Wound exuding moderate amts of purulent exudate. Erythema noted along borders. No odor noted. Pt exhibits pain when wound is minimally palpated. long piece of prior bypass graft noted in wound on Left AKA. >30cm graft removed from wound and pus evacuated. wound cleaned and packing and dressing applied. specimen sent for path. cultures taken Tx.Plan: Cleanse L AKA wound with Saline. Pack wound with Iodoform 1/2 packing strip. Cover with ABD Pad. Wrap with Kerlix Daily and prn. Apply Betadine to Wound dorsal aspect of L AKA. Cover with Optifoam drsg. Change every 3 days and prn. Apply Triad Paste to Sacrum. Cover with Optifoam drsg. Change every 3 days and prn. Apply Triad Paste to groin areas,Ischial areas and scrotum with each perineal care. APM/KEZIA Mattress overlay. Reposition at least every 2hours or as tolerated. Emiliano Martinez September 29, 2018 13:35
--- NOTE | 2018-09-29 15:42 | Internal Med Progress Note ---
Subjective Date of Service: September 29, 2018 Physician Name Darrick Stout Attending Physician Yannick Marshall MD Current Medications Medications (Trade) Dose Ordered Sig/Jennifer Route PRN Reason Start Time Stop Time Status Last Admin Dose Admin Acetaminophen (Tylenol) 650 mg Q4H PRN ORAL fever 09/23/18 20:00 10/23/18 19:59 Albuterol/ Ipratropium (Albuterol/ Ipratropium) 3 ml Q4H PRN HHN Shortness of Breath 09/28/18 13:24 10/03/18 13:23 Ascorbic Acid (Vitamin C) 250 mg TWICE A DAY ORAL 09/26/18 18:00 10/26/18 17:59 09/29/18 09:22 Ceftriaxone Sodium 1 gm/ Dextrose 55 ml @ 110 mls/hr Q24H IVPB 09/26/18 16:00 10/03/18 15:59 09/28/18 18:31 Chlorhexidine Gluconate (Rani-Hex 2%) 1 applic DAILY@2000 TOPIC 09/26/18 20:00 10/26/18 19:59 09/28/18 21:47 Dextrose 1,000 ml @ 100 mls/hr Q10H IV 09/27/18 17:40 10/27/18 17:39 09/29/18 10:17 Dextrose (Dextrose 50%) 25 ml Q30M PRN IV Hypoglycemia 09/24/18 08:00 10/24/18 07:59 Dextrose (Dextrose 50%) 50 ml Q30M PRN IV Hypoglycemia 09/24/18 08:00 10/24/18 07:59 Heparin Sodium (Porcine) (Heparin 5000 units/ml) 5,000 units EVERY 12 HOURS SUBQ 09/23/18 21:00 10/23/18 20:59 09/29/18 09:23 Insulin Aspart (NovoLOG) BEFORE MEALS AND HS SUBQ 09/24/18 11:30 10/24/18 11:29 09/29/18 12:19 Lansoprazole (Prevacid) 30 mg BID GT 09/28/18 18:00 10/28/18 17:59 09/29/18 09:21 Midodrine (Pro-Amatine) 2.5 mg THREE TIMES A DAY GT 09/28/18 13:00 10/28/18 12:59 09/29/18 13:21 Morphine Sulfate (Morphine Sulfate) 2 mg Q4H PRN IVP Moderate Pain (Pain Scale 4-6) 09/23/18 20:00 09/30/18 19:59 09/27/18 17:30 Nitroglycerin (Ntg) 0.4 mg Q5M PRN SL Prn Chest Pain 09/23/18 20:00 10/23/18 19:59 Ondansetron HCl (Zofran) 4 mg Q6H PRN IVP Nausea & Vomiting 09/23/18 20:00 10/23/18 19:59 Polyethylene Glycol (Miralax) 17 gm DAILYPRN PRN ORAL Constipation 09/23/18 20:00 10/23/18 19:59 Potassium Phosphate 15 mm/ Sodium Chloride 280 ml @ 46.67 mls/ hr ONCE IV 09/29/18 10:00 09/29/18 16:00 09/29/18 11:11 Quetiapine Fumarate (SEROquel) 12.5 mg BID ORAL 09/24/18 09:00 10/24/18 08:59 09/29/18 09:22 Temazepam (Restoril) 15 mg HSPRN PRN ORAL Insomnia 09/23/18 20:00 09/30/18 19:59 Vancomycin HCl (Vanco rx to dose) 1 ea DAILY PRN MISC Per rx protocol 09/23/18 21:30 10/23/18 21:29 Vancomycin HCl 500 mg/Dextrose 110 ml @ 110 mls/hr Q24H IVPB 09/28/18 10:00 10/03/18 09:59 09/29/18 10:17 Allergies: Coded Allergies: No Known Allergies (Unverified , 08/10/18) ROS Limited/Unobtainable: No Constitutional: Reports: no symptoms HEENT: Reports: no symptoms Cardiovascular: Reports: no symptoms Respiratory: Reports: no symptoms Gastrointestinal/Abdominal: Reports: no symptoms Genitourinary: Reports: no symptoms Neurologic/Psychiatric: Reports: no symptoms Subjective 67 YO M admitted with leukocytosis. Now UTI and sepsis. Cover for Int isabella-DR Marshall Objective Last Vital Signs Date Time Temp Pulse Resp B/P (MAP) Pulse Ox O2 Delivery O2 Flow Rate FiO2 09/29/18 12:00 98.7 76 18 100/71 (81) 97 09/29/18 09:00 Room Air 09/29/18 07:43 21 09/26/18 09:00 2.0 Laboratory Tests Test 09/29/18 04:50 White Blood Count 8.8 K/UL (4.8-10.8) Red Blood Count 2.94 M/UL (4.70-6.10) L Hemoglobin 8.4 G/DL (14.2-18.0) L Hematocrit 27.7 % (42.0-52.0) L Mean Corpuscular Volume 94 FL (80-99) Mean Corpuscular Hemoglobin 28.5 PG (27.0-31.0) Mean Corpuscular Hemoglobin Concent 30.3 G/DL (32.0-36.0) L Red Cell Distribution Width 16.8 % (11.6-14.8) H Platelet Count 174 K/UL (150-450) Mean Platelet Volume 10.0 FL (6.5-10.1) Neutrophils (%) (Auto) 61.3 % (45.0-75.0) Lymphocytes (%) (Auto) 32.9 % (20.0-45.0) Monocytes (%) (Auto) 4.1 % (1.0-10.0) Eosinophils (%) (Auto) 1.3 % (0.0-3.0) Basophils (%) (Auto) 0.4 % (0.0-2.0) Sodium Level 157 MMOL/L (136-145) H Potassium Level 3.2 MMOL/L (3.5-5.1) L Chloride Level 123 MMOL/L (98-107) H Carbon Dioxide Level 27 MMOL/L (21-32) Anion Gap 7 mmol/L (5-15) Blood Urea Nitrogen 27 mg/dL (7-18) H Creatinine 0.7 MG/DL (0.55-1.30) Estimat Glomerular Filtration Rate > 60 mL/min (>60) Glucose Level 123 MG/DL (74-106) H Uric Acid 3.0 MG/DL (2.6-7.2) Calcium Level 7.9 MG/DL (8.5-10.1) L Phosphorus Level 1.7 MG/DL (2.5-4.9) L Magnesium Level 1.9 MG/DL (1.8-2.4) Total Bilirubin 0.2 MG/DL (0.2-1.0) Aspartate Amino Transf (AST/SGOT) 25 U/L (15-37) Alanine Aminotransferase (ALT/SGPT) 20 U/L (12-78) Alkaline Phosphatase 99 U/L (46-116) Total Protein 6.6 G/DL (6.4-8.2) Albumin 1.5 G/DL (3.4-5.0) L Globulin 5.1 g/dL Albumin/Globulin Ratio 0.3 (1.0-2.7) L Intake and Output 09/28/18 09/29/18 19:00 07:00 Intake Total 1750 ml 1250 ml Output Total 2100 ml 1350 ml Balance -350 ml -100 ml Intake Free Water 150 ml 250 ml IV Total 1100 ml 500 ml Tube Feeding 500 ml 500 ml Output Urine Total 2100 ml 1350 ml Objective PHYSICAL EXAMINATION: GENERAL: The patient is a well-developed and well-nourished male in no apparent distress. HEENT: Eyes, pupils are equal and responsive to light and accommodation. Extraocular movements are intact. NECK: Supple without lymphadenopathy. CHEST: Lungs are clear to auscultation bilaterally without wheezes or rales. CARDIOVASCULAR: Tachycardic, regular rate and rhythm . S1 and S2 are normal without murmurs, rubs, or gallops. ABDOMEN: Soft, nontender, and nondistended. Positive bowel sounds. No evidence of hepatosplenomegaly. Currently, no rebound or guarding noted. EXTREMITIES: Bilateral gdbvl-lgs-[id number] amputation. Otherwise, without cyanosis. NEUROLOGIC: Cranial nerves II through XII are grossly intact without focal deficits. Assessment/Plan Assessment/Plan ASSESSMENT: This is a 67-year-old male. 1. Leukocytosis. 2. sepsis=Proteus Mirabilis 3. Diabetes type 2. 4. Hypertension. 5. Cerebrovascular disease. 6. Alzheimer's dementia. 7. History of polysubstance abuse. 8. UTI=Proteus mirabilis 9. bilateral above the knee amputation TREATMENT: 1. Leukocytosis/sepsis/UTI An Infectious Disease consultation has been obtained with Dr. Connors. abx=ceftriaxone D/C vancomycin Urine culture=Proteus Blood cultures=Proteus We will follow recommendations of Infectious Disease. 2. Diabetes type 2. The patient has been placed on a NovoLog sliding scale. 3. Hypertension. The patient is currently hypotensive. Hold anti-hypertensive medication. 4. History of cerebrovascular disease. Continue aspirin as above. 5. Bilateral rktsp-egp-lhsa amputation-see surgery note. Darrick Stout MD September 29, 2018 15:42
[2018-09-29 16:00] VITALS: BP 90/58
--- NOTE | 2018-09-29 17:04 | Nephrology Progress Note ---
Assessment/Plan Problem List: (1) Renal failure (ARF), acute on chronic (2) Dehydration (3) Hypernatremia (4) PVD (peripheral vascular disease) (5) DM (6) Alzheimer's dementia (7) Feeding by G-tube (8) CVA (cerebral vascular accident) Assessment Acute renal failure ?Underlying chronic renal failure severe dehydration hypernatremia, free water deficit Anemia UTI PVD s/p AKAs Dementia PEG s/p CVA DM Plan HAS IV ACCESS NOW discussed with SARAH Patterson for low bp K Phos IV as needed D5W IV fluid as needed Anemia jorge monitor lytes and renal parameters antibiotics avoid nephrotoxics per orders Subjective ROS Limited/Unobtainable: No Constitutional: Reports: malaise Objective Objective Last 24 Hour Vital Signs Date Time Temp Pulse Resp B/P (MAP) Pulse Ox O2 Delivery O2 Flow Rate FiO2 09/29/18 16:00 98.9 82 28 90/58 (69) 99 09/29/18 12:00 98.7 76 18 100/71 (81) 97 09/29/18 09:00 Room Air 09/29/18 08:00 97.8 83 18 101/55 (70) 95 09/29/18 07:43 73 18 Room Air 21 09/29/18 04:00 99.5 83 24 102/55 (71) 99 09/29/18 00:00 99.2 87 24 88/51 (63) 96 09/28/18 21:00 Room Air 09/28/18 20:00 98.6 78 24 117/63 (81) 97 09/28/18 19:54 68 18 Room Air 21 Intake and Output 09/28/18 09/29/18 19:00 07:00 Intake Total 1750 ml 1250 ml Output Total 2100 ml 1350 ml Balance -350 ml -100 ml Intake Free Water 150 ml 250 ml IV Total 1100 ml 500 ml Tube Feeding 500 ml 500 ml Output Urine Total 2100 ml 1350 ml Laboratory Tests 09/29/18 04:50: White Blood Count 8.8, Red Blood Count 2.94L, Hemoglobin 8.4L, Hematocrit 27.7L , Mean Corpuscular Volume 94, Mean Corpuscular Hemoglobin 28.5, Mean Corpuscular Hemoglobin Concent 30.3L, Red Cell Distribution Width 16.8H, Platelet Count 174, Mean Platelet Volume 10.0, Neutrophils (%) (Auto) 61.3, Lymphocytes (%) (Auto) 32.9, Monocytes (%) (Auto) 4.1, Eosinophils (%) (Auto) 1.3, Basophils (%) (Auto) 0.4, Sodium Level 157H, Potassium Level 3.2L, Chloride Level 123H, Carbon Dioxide Level 27, Anion Gap 7, Blood Urea Nitrogen 27H, Creatinine 0.7, Estimat Glomerular Filtration Rate > 60, Glucose Level 123H , Uric Acid 3.0, Calcium Level 7.9L, Phosphorus Level 1.7L, Magnesium Level 1.9 , Total Bilirubin 0.2, Aspartate Amino Transf (AST/SGOT) 25, Alanine Aminotransferase (ALT/SGPT) 20, Alkaline Phosphatase 99, Total Protein 6.6, Albumin 1.5L, Globulin 5.1, Albumin/Globulin Ratio 0.3L Height (Feet): 4 Height (Inches): 0.00 Weight (Pounds): 90 General Appearance: no apparent distress Cardiovascular: normal rate Respiratory/Chest: decreased breath sounds Objective no change Gennaro Cagle MD September 29, 2018 17:04
[2018-09-29] MEDS: cefTRIAXone 1 GM in D5W 55 ML IVPB SCH (18:19)
--- NOTE | 2018-09-29 18:30 | NUR ---
NURSE NOTES: Patient resting,turned and position, dressings changed today.Bed alarm on.
--- NOTE | 2018-09-29 19:32 | NUR ---
HAND-OFF: Report given to Ivonne SMITH.
--- NOTE | 2018-09-29 19:34 | NUR ---
NURSE NOTES: Pt received in bed head of bed elevated, Gtube running, no residual, PICC line in place IV fluids running, no signs of pain or distress at the moment, condom catheter in place, will continue to monitor.
[2018-09-29 20:00] VITALS: BP 97/55
[2018-09-29] MEDS: Dyna-Hex 2% Top Sol 2oz TOPIC SCH (20:31)
[2018-09-30] VITALS: BP 102/61
[2018-09-30 04:00] VITALS: BP 105/55
[2018-09-30 05:23] LABS: BASOPHILS % (AUTO) 0.5 % (0.0-2.0); EOSINOPHILS % (AUTO) 1.1 % (0.0-3.0); HEMATOCRIT 29.4 % (42.0-52.0); HEMOGLOBIN 9.1 G/DL (14.2-18.0); LYMPHOCYTES % (AUTO) 35.4 % (20.0-45.0); MEAN CORPUSCULAR VOLUME 93 FL (80-99); MONOCYTES % (AUTO) 4.1 % (1.0-10.0); NEUTROPHILS % (AUTO) 58.9 % (45.0-75.0); PLATELET COUNT 171 K/UL (150-450); RED BLOOD COUNT 3.17 M/UL (4.70-6.10); RED CELL DISTRIBUTION WIDTH 16.2 % (11.6-14.8); WHITE BLOOD COUNT 8.9 K/UL (4.8-10.8)
[2018-09-30 05:36] LABS: ALANINE AMINOTRANSFERASE 18 U/L (12-78); ALBUMIN 1.6 G/DL (3.4-5.0); ALBUMIN/GLOBULIN RATIO 0.3 (1.0-2.7); ALKALINE PHOSPHATASE 104 U/L (46-116); ANION GAP 6 mmol/L (5-15); ASPARTATE AMINO TRANSFERASE 27 U/L (15-37); BILIRUBIN,TOTAL 0.1 MG/DL (0.2-1.0); BLOOD UREA NITROGEN 21 mg/dL (7-18); CALCIUM 7.7 MG/DL (8.5-10.1); CARBON DIOXIDE 27 MMOL/L (21-32); CHLORIDE 115 MMOL/L (98-107); CREATININE 0.7 MG/DL (0.55-1.30); POTASSIUM 3.5 MMOL/L (3.5-5.1); SODIUM 148 MMOL/L (136-145)
[2018-09-30] MEDS: NovoLOG Insulin Flexpen SUBQ SCH ×3 (06:30→16:30)
--- NOTE | 2018-09-30 07:24 | NUR ---
HAND-OFF: Report given to SARAH Ortiz.
[2018-09-30 08:00] VITALS: BP 100/63
--- NOTE | 2018-09-30 08:00 | NUR ---
Nurses Notes Patient alert to name,respiration unlabored.HOB is elevated,G-tube feedings as ordered,off at this time,per order will resume feeding as ordered. IV fluids infusing as ordered.Dressing to left amputee is intact.Condom catheter is in place and draining clear ramesh color urine.Call light within reach,bed alarm is on.
[2018-09-30] MEDS: Ascorbic Acid 500mg tab ORAL SCH ×2 (09:01→18:36)
[2018-09-30] MEDS: Heparin 5000 units/ml inj SUBQ SCH (09:04)
[2018-09-30] MEDS ORDERED: Vancomycin 750mg/NS 275ml IVPB SCH ×2 (11:00)
[2018-09-30] MEDS ORDERED: Potassium Phosphate 30 MM in NS 275 ML IV ONE (11:00)
--- NOTE | 2018-09-30 11:39 | NUR ---
RD ASSESSMENT & RECOMMENDATIONS SEE CARE ACTIVITY FOR COMPLETE ASSESSMENT DAILY ESTIMATED NEEDS: Needs based on Wt loss, sepsis, wounds/ 49kg 30-35 kcals/kg 7377-3115 total kcals 1.25-2 g protein/kg 61-798 g total protein 25-30 mL/kg 4796-0167 total fluid mLs NUTRITION DIAGNOSIS: * Swallowing difficulty R/T dysphagia as evidenced by pt is PEG dep. * Increased kcal/prot needs R/T wt loss, wound healing as evidenced by significant wt loss of 16lbs/ 13% in 8 weeks, partial thickness sacral and full thickness L AKA wound. * Altered nutrition related lab values R/T dehydration, clinical condition as evidenced by critically elev Na (179-> 148), elev BUN (124-> 21), elev phos (5.0-> 2.0), elev mag (3.3 -> 1.7). CURRENT TF:Glucerna 1.5 @ 50ml/hr x 20 hrs ENTERAL NUTRITION RECOMMENDATIONS: Glucerna 1.2 @ 55ml/hr x 24 hrs to provide 1320ml, 1584kcal, 79g prot, 1062ml free water * Rec TF CHANGE Glucerna 1.2 for increased free water * Initiate Glucerna 1.2 @ 25ml/hr x 6 hrs, advance 10ml q 4-6 hrs as tolerated to goal rate * HOB over 30 degrees/ water flush per MD ADDITIONAL RECOMMENDATIONS: 1) CALIBRATED bedscale wt, weekly wt monitoring- +wt loss 2) Per SNF, pts wt= 107lbs (obtained 09/23) 3) Monitor lytes, replete as needed 4) WC: BENOIT BID + ZnSO4 220mg daily x10 days/ continue Vit C 5) REC increase water flushes for water deficits/ dehydration .
[2018-09-30 12:00] VITALS: BP 101/66
--- NOTE | 2018-09-30 12:56 | Surgery Progress Note ---
Surgery Progress Note Subjective Additional Comments no acute events. comfortable stable. puts up thumb when asked how he is doing no n/v/f/c labs slowly improving micro noted. Objective Last 24 Hour Vital Signs Date Time Temp Pulse Resp B/P (MAP) Pulse Ox O2 Delivery O2 Flow Rate FiO2 09/30/18 09:00 Room Air 09/30/18 08:00 98.1 88 19 100/63 (75) 99 09/30/18 07:37 64 18 Room Air 21 09/30/18 04:00 97.8 84 18 105/55 (72) 96 09/30/18 00:00 97.9 90 18 102/61 (75) 95 09/29/18 21:00 Room Air 09/29/18 20:00 98.2 92 19 97/55 (69) 97 09/29/18 18:45 88 20 Room Air 21 09/29/18 16:00 98.9 82 28 90/58 (69) 99 I&O Intake and Output 09/29/18 09/30/18 19:00 07:00 Intake Total 1850 ml 150 ml Output Total 400 ml 3700 ml Balance 1450 ml -3550 ml Intake Free Water 200 ml 100 ml IV Total 1200 ml Tube Feeding 450 ml 50 ml Output Urine Total 400 ml 3700 ml # Voids 2 # Bowel Movements 2 Dressing: dry Wound: clean Drains: other Cardiovascular: RSR Respiratory: clear Abdomen: soft, flat, non-tender, present bowel sounds, non-distended Extremities: no cyanosis Laboratory Tests Test 09/30/18 05:00 09/30/18 09:15 White Blood Count 8.9 K/UL (4.8-10.8) Red Blood Count 3.17 M/UL (4.70-6.10) L Hemoglobin 9.1 G/DL (14.2-18.0) L Hematocrit 29.4 % (42.0-52.0) L Mean Corpuscular Volume 93 FL (80-99) Mean Corpuscular Hemoglobin 28.9 PG (27.0-31.0) Mean Corpuscular Hemoglobin Concent 31.2 G/DL (32.0-36.0) L Red Cell Distribution Width 16.2 % (11.6-14.8) H Platelet Count 171 K/UL (150-450) Mean Platelet Volume 8.8 FL (6.5-10.1) Neutrophils (%) (Auto) 58.9 % (45.0-75.0) Lymphocytes (%) (Auto) 35.4 % (20.0-45.0) Monocytes (%) (Auto) 4.1 % (1.0-10.0) Eosinophils (%) (Auto) 1.1 % (0.0-3.0) Basophils (%) (Auto) 0.5 % (0.0-2.0) Sodium Level 148 MMOL/L (136-145) H Potassium Level 3.5 MMOL/L (3.5-5.1) Chloride Level 115 MMOL/L (98-107) H Carbon Dioxide Level 27 MMOL/L (21-32) Anion Gap 6 mmol/L (5-15) Blood Urea Nitrogen 21 mg/dL (7-18) H Creatinine 0.7 MG/DL (0.55-1.30) Estimat Glomerular Filtration Rate > 60 mL/min (>60) Glucose Level 115 MG/DL (74-106) H Calcium Level 7.7 MG/DL (8.5-10.1) L Phosphorus Level 2.0 MG/DL (2.5-4.9) L Magnesium Level 1.7 MG/DL (1.8-2.4) L Total Bilirubin 0.1 MG/DL (0.2-1.0) L Aspartate Amino Transf (AST/SGOT) 27 U/L (15-37) Alanine Aminotransferase (ALT/SGPT) 18 U/L (12-78) Alkaline Phosphatase 104 U/L (46-116) C-Reactive Protein, Quantitative 1.4 mg/dL (0.00-0.90) H Pro-B-Type Natriuretic Peptide 1631 pg/mL (0-125) H Total Protein 6.7 G/DL (6.4-8.2) Albumin 1.6 G/DL (3.4-5.0) L Globulin 5.1 g/dL Albumin/Globulin Ratio 0.3 (1.0-2.7) L Vancomycin Level Trough 6.8 ug/mL (5.0-12.0) Plan Problems: (1) CVA (cerebral vascular accident) (2) Feeding by G-tube (3) Alzheimer's dementia (4) DM (5) Hypernatremia (6) ATN (acute tubular necrosis) (7) PVD (peripheral vascular disease) (8) Sepsis (9) UTI (urinary tract infection) (10) Renal failure (ARF), acute on chronic (11) Dehydration (12) Hypernatremia (13) Iron deficiency anemia (14) Foreign body (FB) in soft tissue Assessment & Plan: reviewed and sent to path cont with local wound care as below (15) Decubitus skin ulcer Assessment & Plan: Hx. of Chele ÁLVAREZ presented on admission with multiple wounds. Non-blanchable erythema with a small area of induration L sacrum. #2 small partial thickness wounds (R) sacrum (proximal)0.4cm x (W)0.5cm,(Inferior) (L)0.5cm x (W)0.3cm . Both wounds are moist and viable. Erythema noted to base of scrotum. NBE noted to R R hip /R trochanteric. At distal/dorsal aspect of L AKA an area of non-blanchable erythema with purulent head centrally over bony prominence. No elevation in skin temp noted. Full thickness wound noted at base of L AKA along Historical incision line.Wound exuding moderate amts of purulent exudate. Erythema noted along borders. No odor noted. Pt exhibits pain when wound is minimally palpated. long piece of prior bypass graft noted in wound on Left AKA. >30cm graft removed from wound and pus evacuated. wound cleaned and packing and dressing applied. specimen sent for path. cultures taken Tx.Plan: Cleanse L AKA wound with Saline. Pack wound with Iodoform 1/2 packing strip. Cover with ABD Pad. Wrap with Kerlix Daily and prn. Apply Betadine to Wound dorsal aspect of L AKA. Cover with Optifoam drsg. Change every 3 days and prn. Apply Triad Paste to Sacrum. Cover with Optifoam drsg. Change every 3 days and prn. Apply Triad Paste to groin areas,Ischial areas and scrotum with each perineal care. APM/KEZIA Mattress overlay. Reposition at least every 2hours or as tolerated. Emiliano Martinez September 30, 2018 12:56
--- NOTE | 2018-09-30 13:17 | NUR ---
*-* INSURANCE *-* UPDATED CLINICALS AND REVIEW HAVE BEEN FAXED TO: ANGELA WAYNEM: ROQUE P:[phone] EXT*[id number] F: [phone] TRACKING# [id number]
[2018-09-30] MEDS ORDERED: CEPHALEXIN500 MG ORAL (13:33)
[2018-09-30] MEDS ORDERED: BACTRIM SINGLE S1 EA ORAL (13:33)
--- NOTE | 2018-09-30 13:34 | Pulmonology Progress Note ---
Assessment/Plan Problems: (1) Sepsis (2) ATN (acute tubular necrosis) (3) Hypernatremia (4) PVD (peripheral vascular disease) (5) CVA (cerebral vascular accident) (6) Feeding by G-tube (7) Alzheimer's dementia (8) DM (9) S/P AKA (above knee amputation) bilateral Assessment/Plan no new event better wbc decreasing afebrile now Na better continue d5w at 150 cc/hour feeding by Gtube consider end of life care Subjective ROS Limited/Unobtainable: No Constitutional: Reports: no symptoms HEENT: Repors: no symptoms Respiratory: Reports: no symptoms Allergies: Coded Allergies: No Known Allergies (Unverified , 08/10/18) Objective Last 24 Hour Vital Signs Date Time Temp Pulse Resp B/P (MAP) Pulse Ox O2 Delivery O2 Flow Rate FiO2 09/30/18 09:00 Room Air 09/30/18 08:00 98.1 88 19 100/63 (75) 99 09/30/18 07:37 64 18 Room Air 21 09/30/18 04:00 97.8 84 18 105/55 (72) 96 09/30/18 00:00 97.9 90 18 102/61 (75) 95 09/29/18 21:00 Room Air 09/29/18 20:00 98.2 92 19 97/55 (69) 97 09/29/18 18:45 88 20 Room Air 21 09/29/18 16:00 98.9 82 28 90/58 (69) 99 Intake and Output 09/29/18 09/30/18 19:00 07:00 Intake Total 1850 ml 150 ml Output Total 400 ml 3700 ml Balance 1450 ml -3550 ml Intake Free Water 200 ml 100 ml IV Total 1200 ml Tube Feeding 450 ml 50 ml Output Urine Total 400 ml 3700 ml # Voids 2 # Bowel Movements 2 General Appearance: cachetic HEENT: normocephalic, atraumatic Respiratory/Chest: chest wall non-tender, normal breath sounds Cardiovascular: normal peripheral pulses, regular rhythm Genitourinary: normal external genitalia Skin: no rash, no lesions Laboratory Tests 09/30/18 05:00: White Blood Count 8.9, Red Blood Count 3.17L, Hemoglobin 9.1L, Hematocrit 29.4L , Mean Corpuscular Volume 93, Mean Corpuscular Hemoglobin 28.9, Mean Corpuscular Hemoglobin Concent 31.2L, Red Cell Distribution Width 16.2H, Platelet Count 171, Mean Platelet Volume 8.8, Neutrophils (%) (Auto) 58.9, Lymphocytes (%) (Auto) 35.4, Monocytes (%) (Auto) 4.1, Eosinophils (%) (Auto) 1.1, Basophils (%) (Auto) 0.5, Sodium Level 148H, Potassium Level 3.5, Chloride Level 115H, Carbon Dioxide Level 27, Anion Gap 6, Blood Urea Nitrogen 21H, Creatinine 0.7, Estimat Glomerular Filtration Rate > 60, Glucose Level 115H, Calcium Level 7.7L, Phosphorus Level 2.0L, Magnesium Level 1.7L, Total Bilirubin 0.1L, Aspartate Amino Transf (AST/SGOT) 27, Alanine Aminotransferase ( ALT/SGPT) 18, Alkaline Phosphatase 104, C-Reactive Protein, Quantitative 1.4H, Pro-B-Type Natriuretic Peptide 1631H, Total Protein 6.7, Albumin 1.6L, Globulin 5.1, Albumin/Globulin Ratio 0.3L 09/30/18 09:15: Vancomycin Level Trough 6.8 Current Medications Medications (Trade) Dose Ordered Sig/Jennifer Route PRN Reason Start Time Stop Time Status Last Admin Dose Admin Acetaminophen (Tylenol) 650 mg Q4H PRN ORAL fever 09/23/18 20:00 10/23/18 19:59 Albuterol/ Ipratropium (Albuterol/ Ipratropium) 3 ml Q4H PRN HHN Shortness of Breath 09/28/18 13:24 10/03/18 13:23 Ascorbic Acid (Vitamin C) 250 mg TWICE A DAY ORAL 09/26/18 18:00 10/26/18 17:59 09/30/18 09:01 Ceftriaxone Sodium 1 gm/ Dextrose 55 ml @ 110 mls/hr Q24H IVPB 09/26/18 16:00 10/03/18 15:59 09/29/18 18:19 Chlorhexidine Gluconate (Rani-Hex 2%) 1 applic DAILY@2000 TOPIC 09/26/18 20:00 10/26/18 19:59 09/29/18 20:31 Dextrose 1,000 ml @ 60 mls/hr [id number] IV 09/30/18 10:00 10/27/18 09:59 09/30/18 11:19 Dextrose (Dextrose 50%) 25 ml Q30M PRN IV Hypoglycemia 09/24/18 08:00 10/24/18 07:59 Dextrose (Dextrose 50%) 50 ml Q30M PRN IV Hypoglycemia 09/24/18 08:00 10/24/18 07:59 Heparin Sodium (Porcine) (Heparin 5000 units/ml) 5,000 units EVERY 12 HOURS SUBQ 09/23/18 21:00 10/23/18 20:59 09/30/18 09:04 Insulin Aspart (NovoLOG) BEFORE MEALS AND HS SUBQ 09/24/18 11:30 10/24/18 11:29 09/30/18 06:30 Lansoprazole (Prevacid) 30 mg BID GT 09/28/18 18:00 10/28/18 17:59 09/30/18 09:01 Magnesium Sulfate 100 ml @ 100 mls/hr Q1H IVPB 09/30/18 10:00 09/30/18 13:59 09/30/18 12:27 Midodrine (Pro-Amatine) 2.5 mg THREE TIMES A DAY GT 09/28/18 13:00 10/28/18 12:59 09/30/18 09:01 Morphine Sulfate (Morphine Sulfate) 2 mg Q4H PRN IVP Moderate Pain (Pain Scale 4-6) 09/23/18 20:00 09/30/18 19:59 09/27/18 17:30 Nitroglycerin (Ntg) 0.4 mg Q5M PRN SL Prn Chest Pain 09/23/18 20:00 10/23/18 19:59 Ondansetron HCl (Zofran) 4 mg Q6H PRN IVP Nausea & Vomiting 09/23/18 20:00 10/23/18 19:59 Polyethylene Glycol (Miralax) 17 gm DAILYPRN PRN ORAL Constipation 09/23/18 20:00 10/23/18 19:59 Potassium Phosphate 30 mm/ Sodium Chloride 285 ml @ 47.5 mls/hr ONCE ONCE IV 09/30/18 11:00 09/30/18 16:59 Quetiapine Fumarate (SEROquel) 12.5 mg BID ORAL 09/24/18 09:00 10/24/18 08:59 09/30/18 09:01 Temazepam (Restoril) 15 mg HSPRN PRN ORAL Insomnia 09/23/18 20:00 09/30/18 19:59 Vancomycin HCl (Vanco rx to dose) 1 ea DAILY PRN MISC Per rx protocol 09/23/18 21:30 10/23/18 21:29 Vancomycin HCl 750 mg/Sodium Chloride 275 ml @ 183.333 mls/hr Q24H IVPB 09/30/18 11:00 10/05/18 10:59 09/30/18 11:30 Jaylin Dickson MD September 30, 2018 13:34
--- NOTE | 2018-09-30 13:50 | NUR ---
8DISCHARGE PLANNING DISCHARGE ORDER NOTED FAXED CLINICALS TO [facility] [address] WAITING FOR ASSIGNED BED
--- NOTE | 2018-09-30 15:25 | NUR ---
DISCHARGE PLANNED PATIENT WILL DISCHARGE TO [facility] ROOM [facility] T": [phone] FOR NURSE TO NURSE REPORT [facility] HAS BEEN ARRANGED FOR 1800 [employer] SINCE SARAH WARD HAS TO GIVE A BOLUS ATTEMPTED TO CONTACT SIGNIFICANT OTHER TWICE HOWEVER SOMEONE PICKED UP THE PHONE THEN HUNG UP Addendum: 09/30/18 at 1529 by ANDI ESPINO LVN LVN DETENTION
--- NOTE | 2018-09-30 15:30 | Nephrology Progress Note ---
Assessment/Plan Problem List: (1) Renal failure (ARF), acute on chronic (2) Dehydration (3) Hypernatremia (4) PVD (peripheral vascular disease) (5) DM (6) Alzheimer's dementia (7) Feeding by G-tube (8) CVA (cerebral vascular accident) Assessment Acute renal failure ?Underlying chronic renal failure severe dehydration hypernatremia, free water deficit Anemia UTI PVD s/p AKAs Dementia PEG s/p CVA DM Plan HAS IV ACCESS NOW discussed with SARAH Patterson for low bp K Phos IV as needed D5W IV fluid as needed Anemia jorge monitor lytes and renal parameters antibiotics avoid nephrotoxics per orders Subjective ROS Limited/Unobtainable: No Objective Objective Last 24 Hour Vital Signs Date Time Temp Pulse Resp B/P (MAP) Pulse Ox O2 Delivery O2 Flow Rate FiO2 09/30/18 12:00 98.3 91 20 101/66 (78) 99 09/30/18 09:00 Room Air 09/30/18 08:00 98.1 88 19 100/63 (75) 99 09/30/18 07:37 64 18 Room Air 21 09/30/18 04:00 97.8 84 18 105/55 (72) 96 09/30/18 00:00 97.9 90 18 102/61 (75) 95 09/29/18 21:00 Room Air 09/29/18 20:00 98.2 92 19 97/55 (69) 97 09/29/18 18:45 88 20 Room Air 21 09/29/18 16:00 98.9 82 28 90/58 (69) 99 Intake and Output 09/29/18 09/30/18 19:00 07:00 Intake Total 1850 ml 150 ml Output Total 400 ml 3700 ml Balance 1450 ml -3550 ml Intake Free Water 200 ml 100 ml IV Total 1200 ml Tube Feeding 450 ml 50 ml Output Urine Total 400 ml 3700 ml # Voids 2 # Bowel Movements 2 Laboratory Tests 09/30/18 05:00: White Blood Count 8.9, Red Blood Count 3.17L, Hemoglobin 9.1L, Hematocrit 29.4L , Mean Corpuscular Volume 93, Mean Corpuscular Hemoglobin 28.9, Mean Corpuscular Hemoglobin Concent 31.2L, Red Cell Distribution Width 16.2H, Platelet Count 171, Mean Platelet Volume 8.8, Neutrophils (%) (Auto) 58.9, Lymphocytes (%) (Auto) 35.4, Monocytes (%) (Auto) 4.1, Eosinophils (%) (Auto) 1.1, Basophils (%) (Auto) 0.5, Sodium Level 148H, Potassium Level 3.5, Chloride Level 115H, Carbon Dioxide Level 27, Anion Gap 6, Blood Urea Nitrogen 21H, Creatinine 0.7, Estimat Glomerular Filtration Rate > 60, Glucose Level 115H, Calcium Level 7.7L, Phosphorus Level 2.0L, Magnesium Level 1.7L, Total Bilirubin 0.1L, Aspartate Amino Transf (AST/SGOT) 27, Alanine Aminotransferase ( ALT/SGPT) 18, Alkaline Phosphatase 104, C-Reactive Protein, Quantitative 1.4H, Pro-B-Type Natriuretic Peptide 1631H, Total Protein 6.7, Albumin 1.6L, Globulin 5.1, Albumin/Globulin Ratio 0.3L 09/30/18 09:15: Vancomycin Level Trough 6.8 Height (Feet): 4 Height (Inches): 0.00 Weight (Pounds): 90 General Appearance: no apparent distress Cardiovascular: normal rate Respiratory/Chest: decreased breath sounds Abdomen: soft Objective no change Gennaro Cagle MD September 30, 2018 15:30
[2018-09-30 16:06] VITALS: BP 110/69
--- NOTE | 2018-09-30 16:13 | Infectious Diseases Prog Note ---
Assessment/Plan Assessment/Plan ASSESSMENT: The patient is a 67-year-old male with, Fever, Sp Leukocytosis, Sp Bacteremia/ UTI P Mirabilis Left lower extremity amputee site wound infection, no evid of osteomyelitis. Wnd CX : MRSA 09/25 SP removal of prior bypass graft noted in wound on Left AKA. >30cm graft removed from wound and pus evacuated. 09/25 MRI : No evidence of osteomyelitis Evidence of a sinus tract extending from the lateral medial thigh anterior to the anterior thigh musculature and then cephalad in the medial thigh to the groin. There gas bubbles within it. This may reflect prior instrumentation or could indicate infection with gas- forming organism. Probable pneumonia History of bilateral BKA History of DVT History of diabetes Hypertension History of CVA History of dysphagia Dementia History of alcohol and tobacco and heroin abuse PLAN: Cont the patient on IV vancomycin d# 6/ (upon DC will change to Bactrim PO to complete the course) Cont Rocephin d# /10 ( upon DC will change to po Keflex to complete the course) -09/27 Sp cefepime d# 2 Monitor CBC Monitor BMP Monitor chest x-ray Surgical fup Bcx x2 Subjective Allergies: Coded Allergies: No Known Allergies (Unverified , 08/10/18) Subjective afebrile no leuokocytosis Objective Vital Signs Last 24 Hour Vital Signs Date Time Temp Pulse Resp B/P (MAP) Pulse Ox O2 Delivery O2 Flow Rate FiO2 09/30/18 12:00 98.3 91 20 101/66 (78) 99 09/30/18 09:00 Room Air 09/30/18 08:00 98.1 88 19 100/63 (75) 99 09/30/18 07:37 64 18 Room Air 21 09/30/18 04:00 97.8 84 18 105/55 (72) 96 09/30/18 00:00 97.9 90 18 102/61 (75) 95 09/29/18 21:00 Room Air 09/29/18 20:00 98.2 92 19 97/55 (69) 97 09/29/18 18:45 88 20 Room Air 21 Height (Feet): 4 Height (Inches): 0.00 Weight (Pounds): 90 Objective General Appearance: no acute distress, chronically ill looking AA male , bedridden HEENT: normocephalic, atraumatic, anicteric Respiratory/Chest: lungs clear Cardiovascular: normal rate, RUE PICC intact Abdomen: normal bowel sounds, soft, non tender, G tube Genitourinary: Pel[place]o Extremities: lala AKA with wounds Neurologic/Psychiatric: abnormal gait Musculoskeletal: lala AKA Laboratory Tests Test 09/30/18 05:00 09/30/18 09:15 White Blood Count 8.9 K/UL (4.8-10.8) Red Blood Count 3.17 M/UL (4.70-6.10) L Hemoglobin 9.1 G/DL (14.2-18.0) L Hematocrit 29.4 % (42.0-52.0) L Mean Corpuscular Volume 93 FL (80-99) Mean Corpuscular Hemoglobin 28.9 PG (27.0-31.0) Mean Corpuscular Hemoglobin Concent 31.2 G/DL (32.0-36.0) L Red Cell Distribution Width 16.2 % (11.6-14.8) H Platelet Count 171 K/UL (150-450) Mean Platelet Volume 8.8 FL (6.5-10.1) Neutrophils (%) (Auto) 58.9 % (45.0-75.0) Lymphocytes (%) (Auto) 35.4 % (20.0-45.0) Monocytes (%) (Auto) 4.1 % (1.0-10.0) Eosinophils (%) (Auto) 1.1 % (0.0-3.0) Basophils (%) (Auto) 0.5 % (0.0-2.0) Sodium Level 148 MMOL/L (136-145) H Potassium Level 3.5 MMOL/L (3.5-5.1) Chloride Level 115 MMOL/L (98-107) H Carbon Dioxide Level 27 MMOL/L (21-32) Anion Gap 6 mmol/L (5-15) Blood Urea Nitrogen 21 mg/dL (7-18) H Creatinine 0.7 MG/DL (0.55-1.30) Estimat Glomerular Filtration Rate > 60 mL/min (>60) Glucose Level 115 MG/DL (74-106) H Calcium Level 7.7 MG/DL (8.5-10.1) L Phosphorus Level 2.0 MG/DL (2.5-4.9) L Magnesium Level 1.7 MG/DL (1.8-2.4) L Total Bilirubin 0.1 MG/DL (0.2-1.0) L Aspartate Amino Transf (AST/SGOT) 27 U/L (15-37) Alanine Aminotransferase (ALT/SGPT) 18 U/L (12-78) Alkaline Phosphatase 104 U/L (46-116) C-Reactive Protein, Quantitative 1.4 mg/dL (0.00-0.90) H Pro-B-Type Natriuretic Peptide 1631 pg/mL (0-125) H Total Protein 6.7 G/DL (6.4-8.2) Albumin 1.6 G/DL (3.4-5.0) L Globulin 5.1 g/dL Albumin/Globulin Ratio 0.3 (1.0-2.7) L Vancomycin Level Trough 6.8 ug/mL (5.0-12.0) Current Medications Medications (Trade) Dose Ordered Sig/Jennifer Route PRN Reason Start Time Stop Time Status Last Admin Dose Admin Acetaminophen (Tylenol) 650 mg Q4H PRN ORAL fever 09/23/18 20:00 10/23/18 19:59 Albuterol/ Ipratropium (Albuterol/ Ipratropium) 3 ml Q4H PRN HHN Shortness of Breath 09/28/18 13:24 10/03/18 13:23 Ascorbic Acid (Vitamin C) 250 mg TWICE A DAY ORAL 09/26/18 18:00 10/26/18 17:59 09/30/18 09:01 Ceftriaxone Sodium 1 gm/ Dextrose 55 ml @ 110 mls/hr Q24H IVPB 09/26/18 16:00 10/03/18 15:59 09/29/18 18:19 Chlorhexidine Gluconate (Rani-Hex 2%) 1 applic DAILY@2000 TOPIC 09/26/18 20:00 10/26/18 19:59 09/29/18 20:31 Dextrose (Dextrose 50%) 25 ml Q30M PRN IV Hypoglycemia 09/24/18 08:00 10/24/18 07:59 Dextrose (Dextrose 50%) 50 ml Q30M PRN IV Hypoglycemia 09/24/18 08:00 10/24/18 07:59 Heparin Sodium (Porcine) (Heparin 5000 units/ml) 5,000 units EVERY 12 HOURS SUBQ 09/23/18 21:00 10/23/18 20:59 09/30/18 09:04 Insulin Aspart (NovoLOG) BEFORE MEALS AND HS SUBQ 09/24/18 11:30 10/24/18 11:29 09/30/18 06:30 Lansoprazole (Prevacid) 30 mg BID GT 09/28/18 18:00 10/28/18 17:59 09/30/18 09:01 Midodrine (Pro-Amatine) 2.5 mg THREE TIMES A DAY GT 09/28/18 13:00 10/28/18 12:59 09/30/18 13:41 Morphine Sulfate (Morphine Sulfate) 2 mg Q4H PRN IVP Moderate Pain (Pain Scale 4-6) 09/23/18 20:00 09/30/18 19:59 09/27/18 17:30 Nitroglycerin (Ntg) 0.4 mg Q5M PRN SL Prn Chest Pain 09/23/18 20:00 10/23/18 19:59 Ondansetron HCl (Zofran) 4 mg Q6H PRN IVP Nausea & Vomiting 09/23/18 20:00 10/23/18 19:59 Polyethylene Glycol (Miralax) 17 gm DAILYPRN PRN ORAL Constipation 09/23/18 20:00 10/23/18 19:59 Potassium Phosphate 30 mm/ Sodium Chloride 285 ml @ 47.5 mls/hr ONCE ONCE IV 09/30/18 11:00 09/30/18 16:59 09/30/18 14:56 Quetiapine Fumarate (SEROquel) 12.5 mg BID ORAL 09/24/18 09:00 10/24/18 08:59 09/30/18 09:01 Temazepam (Restoril) 15 mg HSPRN PRN ORAL Insomnia 09/23/18 20:00 09/30/18 19:59 Vancomycin HCl (Vanco rx to dose) 1 ea DAILY PRN MISC Per rx protocol 09/23/18 21:30 10/23/18 21:29 Vancomycin HCl 750 mg/Sodium Chloride 275 ml @ 183.333 mls/hr Q24H IVPB 09/30/18 11:00 10/05/18 10:59 09/30/18 11:30 Deepti Connolly M.D. 6, 2019 16:13
--- NOTE | 2018-09-30 17:29 | NUR ---
NURSE NOTES: Report given to Jerry SMITH at [facility].
--- NOTE | 2018-09-30 19:00 | NUR ---
NURSE NOTES: Patient resting,watching TV,patient continue to tolerate G-tube feedings,HOB Is elevated.
--- NOTE | 2018-09-30 19:25 | Internal Med Progress Note ---
Subjective Date of Service: September 30, 2018 Physician Name Stout,Darrick Attending Physician Yannick Marshall MD Current Medications Medications (Trade) Dose Ordered Sig/Jennifer Route PRN Reason Start Time Stop Time Status Last Admin Dose Admin Acetaminophen (Tylenol) 650 mg Q4H PRN ORAL fever 09/23/18 20:00 10/23/18 19:59 Albuterol/ Ipratropium (Albuterol/ Ipratropium) 3 ml Q4H PRN HHN Shortness of Breath 09/28/18 13:24 10/03/18 13:23 Ascorbic Acid (Vitamin C) 250 mg TWICE A DAY ORAL 09/26/18 18:00 10/26/18 17:59 09/30/18 18:36 Ceftriaxone Sodium 1 gm/ Dextrose 55 ml @ 110 mls/hr Q24H IVPB 09/26/18 16:00 10/03/18 15:59 09/29/18 18:19 Chlorhexidine Gluconate (Rani-Hex 2%) 1 applic DAILY@2000 TOPIC 09/26/18 20:00 10/26/18 19:59 09/29/18 20:31 Dextrose (Dextrose 50%) 25 ml Q30M PRN IV Hypoglycemia 09/24/18 08:00 10/24/18 07:59 Dextrose (Dextrose 50%) 50 ml Q30M PRN IV Hypoglycemia 09/24/18 08:00 10/24/18 07:59 Heparin Sodium (Porcine) (Heparin 5000 units/ml) 5,000 units EVERY 12 HOURS SUBQ 09/23/18 21:00 10/23/18 20:59 09/30/18 09:04 Insulin Aspart (NovoLOG) BEFORE MEALS AND HS SUBQ 09/24/18 11:30 10/24/18 11:29 09/30/18 06:30 Lansoprazole (Prevacid) 30 mg BID GT 09/28/18 18:00 10/28/18 17:59 09/30/18 18:36 Midodrine (Pro-Amatine) 2.5 mg THREE TIMES A DAY GT 09/28/18 13:00 10/28/18 12:59 09/30/18 18:36 Morphine Sulfate (Morphine Sulfate) 2 mg Q4H PRN IVP Moderate Pain (Pain Scale 4-6) 09/23/18 20:00 09/30/18 19:59 09/27/18 17:30 Nitroglycerin (Ntg) 0.4 mg Q5M PRN SL Prn Chest Pain 09/23/18 20:00 10/23/18 19:59 Ondansetron HCl (Zofran) 4 mg Q6H PRN IVP Nausea & Vomiting 09/23/18 20:00 10/23/18 19:59 Polyethylene Glycol (Miralax) 17 gm DAILYPRN PRN ORAL Constipation 09/23/18 20:00 10/23/18 19:59 Quetiapine Fumarate (SEROquel) 12.5 mg BID ORAL 09/24/18 09:00 10/24/18 08:59 09/30/18 18:35 Temazepam (Restoril) 15 mg HSPRN PRN ORAL Insomnia 09/23/18 20:00 09/30/18 19:59 Vancomycin HCl (Vanco rx to dose) 1 ea DAILY PRN MISC Per rx protocol 09/23/18 21:30 10/23/18 21:29 Vancomycin HCl 750 mg/Sodium Chloride 275 ml @ 183.333 mls/hr Q24H IVPB 09/30/18 11:00 10/05/18 10:59 09/30/18 11:30 Allergies: Coded Allergies: No Known Allergies (Unverified , 08/10/18) ROS Limited/Unobtainable: Yes Subjective 67 YO M admitted with leukocytosis. Now UTI and sepsis. Cover for Int isabella-DR Marshall Objective Last Vital Signs Date Time Temp Pulse Resp B/P (MAP) Pulse Ox O2 Delivery O2 Flow Rate FiO2 09/30/18 16:06 98.1 88 19 110/69 (83) 98 09/30/18 09:00 Room Air 09/30/18 07:37 21 09/26/18 09:00 2.0 Laboratory Tests Test 09/30/18 05:00 09/30/18 09:15 White Blood Count 8.9 K/UL (4.8-10.8) Red Blood Count 3.17 M/UL (4.70-6.10) L Hemoglobin 9.1 G/DL (14.2-18.0) L Hematocrit 29.4 % (42.0-52.0) L Mean Corpuscular Volume 93 FL (80-99) Mean Corpuscular Hemoglobin 28.9 PG (27.0-31.0) Mean Corpuscular Hemoglobin Concent 31.2 G/DL (32.0-36.0) L Red Cell Distribution Width 16.2 % (11.6-14.8) H Platelet Count 171 K/UL (150-450) Mean Platelet Volume 8.8 FL (6.5-10.1) Neutrophils (%) (Auto) 58.9 % (45.0-75.0) Lymphocytes (%) (Auto) 35.4 % (20.0-45.0) Monocytes (%) (Auto) 4.1 % (1.0-10.0) Eosinophils (%) (Auto) 1.1 % (0.0-3.0) Basophils (%) (Auto) 0.5 % (0.0-2.0) Sodium Level 148 MMOL/L (136-145) H Potassium Level 3.5 MMOL/L (3.5-5.1) Chloride Level 115 MMOL/L (98-107) H Carbon Dioxide Level 27 MMOL/L (21-32) Anion Gap 6 mmol/L (5-15) Blood Urea Nitrogen 21 mg/dL (7-18) H Creatinine 0.7 MG/DL (0.55-1.30) Estimat Glomerular Filtration Rate > 60 mL/min (>60) Glucose Level 115 MG/DL (74-106) H Calcium Level 7.7 MG/DL (8.5-10.1) L Phosphorus Level 2.0 MG/DL (2.5-4.9) L Magnesium Level 1.7 MG/DL (1.8-2.4) L Total Bilirubin 0.1 MG/DL (0.2-1.0) L Aspartate Amino Transf (AST/SGOT) 27 U/L (15-37) Alanine Aminotransferase (ALT/SGPT) 18 U/L (12-78) Alkaline Phosphatase 104 U/L (46-116) C-Reactive Protein, Quantitative 1.4 mg/dL (0.00-0.90) H Pro-B-Type Natriuretic Peptide 1631 pg/mL (0-125) H Total Protein 6.7 G/DL (6.4-8.2) Albumin 1.6 G/DL (3.4-5.0) L Globulin 5.1 g/dL Albumin/Globulin Ratio 0.3 (1.0-2.7) L Vancomycin Level Trough 6.8 ug/mL (5.0-12.0) Intake and Output 09/29/18 09/30/18 19:00 07:00 Intake Total 1850 ml 150 ml Output Total 400 ml 3700 ml Balance 1450 ml -3550 ml Intake Free Water 200 ml 100 ml IV Total 1200 ml Tube Feeding 450 ml 50 ml Output Urine Total 400 ml 3700 ml # Voids 2 # Bowel Movements 2 Objective PHYSICAL EXAMINATION: GENERAL: The patient is a well-developed and well-nourished male in no apparent distress. HEENT: Eyes, pupils are equal and responsive to light and accommodation. Extraocular movements are intact. NECK: Supple without lymphadenopathy. CHEST: Lungs are clear to auscultation bilaterally without wheezes or rales. CARDIOVASCULAR: Tachycardic, regular rate and rhythm . S1 and S2 are normal without murmurs, rubs, or gallops. ABDOMEN: Soft, nontender, and nondistended. Positive bowel sounds. No evidence of hepatosplenomegaly. Currently, no rebound or guarding noted. EXTREMITIES: Bilateral euadb-mwx-fupl amputation. Otherwise, without cyanosis. NEUROLOGIC: Cranial nerves II through XII are grossly intact without focal deficits. Assessment/Plan Assessment/Plan ASSESSMENT: This is a 67-year-old male. 1. Leukocytosis. 2. sepsis=Proteus Mirabilis 3. Diabetes type 2. 4. Hypertension. 5. Cerebrovascular disease. 6. Alzheimer's dementia. 7. History of polysubstance abuse. 8. UTI=Proteus mirabilis 9. bilateral above the knee amputation TREATMENT: 1. Leukocytosis/sepsis/UTI An Infectious Disease consultation has been obtained with Dr. Connors. abx=ceftriaxone D/C vancomycin Urine culture=Proteus Blood cultures=Proteus We will follow recommendations of Infectious Disease. 2. Diabetes type 2. The patient has been placed on a NovoLog sliding scale. 3. Hypertension. The patient is currently hypotensive. Hold anti-hypertensive medication. 4. History of cerebrovascular disease. Continue aspirin as above. 5. Bilateral lwwdl-pba-jxji amputation-see surgery note. 6. Discharge to [facility] today Darrick Stout MD September 30, 2018 19:25
--- NOTE | 2018-09-30 19:30 | NUR ---
HAND-OFF: Report given to Lulu SMITH.
[2018-09-30] MEDS: cefTRIAXone 1 GM in D5W 55 ML IVPB SCH (19:59)
--- NOTE | 2018-09-30 20:15 | NUR ---
NURSE NOTES: patient family member Sera Storm aware of patient discharge back to [facility],unable to get in touch with [facility].DR Stout awar that patient has Picc LIne ,DR Stout state to keep Picc Line in place,okay to tranfer patient back to facility with Picc Line,will notify [facility].
--- NOTE | 2018-09-30 20:48 | NUR ---
NURSE NOTES: Patient is being picked up by the ambulance to be transported to [facility], report is given to ambulance staff, Patient will be transported with PICC line in place, OK by , facility was made aware. Patient is stable at time of discharge.
--- NOTE | 2018-10-02 14:49 | Discharge Summary ---
Discharge Summary Discharge Summary _ DATE OF ADMISSION: 09/23/2018 DATE OF DISCHARGE: 09/30/2018 DISCHARGED BY: Dr. Marshall REASON FOR ADMISSION: 68 years old male with past medical history of bilateral AKA, dysphagia, G-tube , dementia, diabetes mellitus, hypertension, history of CVA, resident of care home facility, was brought for evaluation due to persistent leukocytosis. Upon initial evaluation patient was tachycardic, WBC 22 , stable hemoglobin and hematocrit Urinalysis revealed possible UTI. Sodium 169, potassium 5.5. BUN 162 9, creatinine 2.9. Lactic acid -3.3. Troponin 0.051, pro BNP 2209. Total CK 45 . Albumin 2.3. EKG revealed sinus tachycardia, no acute ischemic changes. Chest x-ray demonstrated left lower lobe atelectasis. In the emergency department septic work-up initiated , patient pancultured and started on empiric antibiotics. CONSULTANTS: pulmonary Dr. Dickson ID specialist Dr. Connors marketing pr intern Dr. Cagle surgery Dr. Martinez [facility] COURSE: Patient started on the IV hydration and empiric antibiotic. ID consult requested. Blood culture revealed Proteus mirabilis. Urine culture revealed growth of Proteus mirabilis as well. Patient had bilateral AKA with infected wounds. Surgeon closely follow. Upon evaluation long piece of prior bypass graft was removed from left AKA wound. Wound was cleaned, packed and dressing was applied. Specimen was sent for pathology and was consistent with the stated origin. Wound culture revealed MRSA. Left femur MRI revealed no evidence of osteomyelitis Antibiotic regimen was optimized as per ID specialist recommendation. Patient was on IV antibiotic while in the hospital and changed to oral antibiotics upon discharge to complete the course. Fevers and leukocytosis resolved. CRP from 10 down to 1.4. Wound care provided as per surgeon recommendation. Continue wound care at the facility. Patient was on the IV fluids with D5 water. Renal parameters and electrolytes were closely monitored, electrolytes corrected as needed , and nephrotoxins were avoided. Comptometrist followed. Creatinine prior to discharge 0.7, BUN 21 . Sodium down to 148. Free water via G-tube increased. Pain management was addressed, and pain was controlled. DVT and GI prophylaxis provided. Strict aspiration precautions were maintained. G-tube feeding provided. Patient was able to tolerate G-tube feeding. Bowel regimen instituted. Supportive care provided. All antihypertensive medications were on hold due to hypotension. Patient started on midodrine Blood pressure stabilized. Blood sugar was closely monitored and managed with sliding scale of insulin as needed. Hemoglobin A1c at goal -5.7. Anemia work-up was consistent with anemia of chronic disease. Ferritin 1856. Hemoglobin and hematocrit where closely monitored with goal to keep hemoglobin above 7. Prior to discharge hemoglobin 9.1, hematocrit 29.4. Patient was clinically stabilized and ready for transfer back to care home facility for continuation of care. Patient need to complete antibiotic course and continue with wound care as per surgeon recommendation. FINAL DIAGNOSES: Sepsis with Proteus bacteremia secondary to UTI Proteus UTI PVD with bilateral AKA with infected wounds Left AKA wound with MRSA, s/p removal of large piece of prior bypass graft Acute tubular necrosis secondary to dehydration, sepsis , hypotensioon - resolved Hypotension with history of hypertension Dehydration Hypernatremia History of CVA Dysphasia , feeding by G-tube Diabetes mellitus History of DVT Alzheimer's dementia DISCHARGE MEDICATIONS: See Medication Reconciliation list. DISCHARGE INSTRUCTIONS: Patient was discharged to the care home facility. Follow up with medical doctor at the facility. I have been assigned to dictate discharge summary for this account. I was not involved in the patient's management. Stephanie Jessica NP October 02, 2018 14:49
== END 2018-09-30 21:00 | disposition short-term general hospital (02) | DRG 871 ==
LOC: EDBD 17:09 → EMR 18:12 → 2E 20:23 → EDBEDREQ 21:05 → 4E 09-24 14:01
DX: A41.50 Gram-negative sepsis, unspecified (principal); N17.0 Acute kidney failure with tubular necrosis; I63.9 Cerebral infarction, unspecified; E87.0 Hyperosmolality and hypernatremia; N39.0 Urinary tract infection, site not specified; T87.44 Infection of amputation stump, left lower extremity; I12.9 Hypertensive chronic kidney disease with stage 1 through stage 4 chronic kidney disease, or unspecified chronic kidney disease; Z86.718 Personal history of other venous thrombosis and embolism; G30.9 Alzheimer's disease, unspecified; F02.80 Dementia in other diseases classified elsewhere, unspecified severity, without behavioral disturbance, psychotic disturbance, mood disturbance, and anxiety; Z79.02 Long term (current) use of antithrombotics/antiplatelets; Z79.82 Long term (current) use of aspirin; B96.4 Proteus (mirabilis) (morganii) as the cause of diseases classified elsewhere; E11.22 Type 2 diabetes mellitus with diabetic chronic kidney disease; N18.9 Chronic kidney disease, unspecified; Z89.612 Acquired absence of left leg above knee; Z89.611 Acquired absence of right leg above knee; R13.10 Dysphagia, unspecified; I73.9 Peripheral vascular disease, unspecified; F10.10 Alcohol abuse, uncomplicated; F11.11 Opioid abuse, in remission; B95.62 Methicillin resistant Staphylococcus aureus infection as the cause of diseases classified elsewhere
CPT/HCPCS: 36415; 36569; 71045; 76937; 80048; 80053; 80061; 80076; 80202; 81003; 82043; 82140; 82436; 82533; 82550; 82553; 82570; 82607; 82728; 82746; 82962; 82977; 83036; 83540; 83550; 83605; 83690; 83735; 83880; 83935; 84100; 84133; 84300; 84439; 84443; 84484; 84550; 85007; 85025; 86140; 87040; 87070; 87081; 87086; 87181; 87205; 89050; 93005; 94664; 94760; 96361; 96365; 99291; J1815; J7620

== ENCOUNTER 2018-12-23 06:37 | Inpatient (IN) | payer OTHER ==
[~2018-12-23] VITALS: Ht 101.6 cm; Wt 37.7 kg
[~2018-12-23 06:37] MED LIST changes: +ACETAMINOPHEN325 M1 GT; -ACETAMINOPHEN325 M1 ORAL; +BACTRIM SINGLE S1 EA ORAL; +CEPHALEXIN500 MG ORAL; +EMERGEN-C 500500 MG GT; -EMERGEN-C 500500 MG PO; +PRO-STAT LIQUID30 ML GT; -PRO-STAT LIQUID30 ML ORAL
--- NOTE | 2018-12-23 07:06 | Emergency Room Report ---
History of Present Illness General Chief Complaint: Dyspnea/Respdistress Source: Medical Record Present Illness HPI Patient is a 68-year-old male brought in by [facility] ambulance after increased respiratory distress. Patient had been noticed to have increased shortness of breath on bedside rounds this morning approximately 5 AM. He had been noted to be somewhat less responsive than usual. Patient is normally oriented x1 and somewhat responsive. He had prior history of bilateral ayqlw-lnx-fvvl amputations. Patient was noted to be G-tube dependent and nonverbal at baseline. He had been receiving tube feeds Glucerna. He was noted to be somewhat tachycardic. Patient was noted to have temperature up to 99 degrees at the nursing facility. Patient was sent in from [facility]. Per patient' s POLST is full code. Patient had prior history of dementia as well as peripheral vascular disease as well as history of CVA. Primary care physician is Dr. Marshall. Allergies: Coded Allergies: No Known Allergies (Unverified , 08/10/18) Patient History Past Medical History: see triage record Reviewed Nursing Documentation: PMH: Agreed; PSxH: Agreed Nursing Documentation-PMH Hx Hypertension: Yes Hx Diabetes: Yes Hx Cancer: No Hx Cerebrovascular Accident: Yes - cerebral infarction Review of Systems All Other Systems: limited - by poor historian Physical Exam Vital Signs Date Time Temp Pulse Resp B/P (MAP) Pulse Ox O2 Delivery O2 Flow Rate FiO2 12/23/18 06:28 97.2 76 20 98/58 (71) 92 Nasal Cannula 4.0 General Appearance: alert, thin, Chronically Ill Eyes: bilateral eye PERRL ENT: dry mucus membranes Neck: limited range of motion Respiratory: lungs clear, normal breath sounds, other - tachypnea Cardiovascular #1: other - bilateral aka Gastrointestinal: normal inspection, non tender, soft Musculoskeletal: other - bilateral aka Neurologic: alert, aphasia, other - responsive Psychiatric: anxious Skin: no rash Procedures Critical Care Time Critical Care Time Patient had a critical medical condition which untreated could potentially result in life or limb threatening injury. Total critical care time excluding procedures approximately 45 minutes. Medical Decision Making Diagnostic Impression: Primary Impression: Renal failure (ARF), acute on chronic Additional Impressions: Severe sepsis Urinary tract infection Encephalopathy ER Course Patient presented for increased shortness of breath. Differential diagnosis include was not limited to sepsis, anemia, metabolic acidosis, pneumonia among others. Because of complexity of patient's case laboratory testing and imaging studies were ordered. EKG interpreted by me showed normal sinus rhythm with a rate of 138 with multiple premature ventricular beats. QTc was noted to be prolonged at 554. Laboratory testing was ordered and patient was started on IV fluids as well as IV antibiotics. Arterial blood gas was ordered.Patient noted to have a markedly elevated white blood count. Patient was given broad- spectrum antibiotics. Started on IV fluids. Patient was noted to be hyponatremic as well as hyperchloremic. Arterial blood gas showed normal pH with metabolic acidosis. Dr. Yannick Marshall was contacted for inpatient management Labs Test 12/23/18 07:01 12/23/18 07:06 12/23/18 07:07 White Blood Count 23.1 K/UL (4.8-10.8) Red Blood Count 5.78 M/UL (4.70-6.10) Hemoglobin 15.9 G/DL (14.2-18.0) Hematocrit 52.0 % (42.0-52.0) Mean Corpuscular Volume 90 FL (80-99) Mean Corpuscular Hemoglobin 27.5 PG (27.0-31.0) Mean Corpuscular Hemoglobin Concent 30.6 G/DL (32.0-36.0) Red Cell Distribution Width 14.6 % (11.6-14.8) Platelet Count 249 K/UL (150-450) Mean Platelet Volume 6.9 FL (6.5-10.1) Neutrophils (%) (Auto) % (45.0-75.0) Lymphocytes (%) (Auto) % (20.0-45.0) Monocytes (%) (Auto) % (1.0-10.0) Eosinophils (%) (Auto) % (0.0-3.0) Basophils (%) (Auto) % (0.0-2.0) Sodium Level 157 MMOL/L (136-145) Potassium Level 3.4 MMOL/L (3.5-5.1) Chloride Level 121 MMOL/L (98-107) Carbon Dioxide Level 25 MMOL/L (21-32) Anion Gap 11 mmol/L (5-15) Blood Urea Nitrogen 47 mg/dL (7-18) Creatinine 0.9 MG/DL (0.55-1.30) Estimat Glomerular Filtration Rate > 60 mL/min (>60) Glucose Level 143 MG/DL (74-106) Calcium Level 9.2 MG/DL (8.5-10.1) Arterial Blood pH 7.415 (7.350-7.450) Arterial Blood Partial Pressure CO2 32.9 mmHg (35.0-45.0) Arterial Blood Partial Pressure O2 90.8 mmHg (75.0-100.0) Arterial Blood HCO3 20.6 mmol/L (22.0-26.0) Arterial Blood Oxygen Saturation 97.0 % (95-100) Arterial Blood Base Excess -3.0 (-2-2) Sudheer Test Positive EKG Diagnostic Results Rate: tachycardiac Rhythm: NSR ST Segments: other - pvcs Last Vital Signs Date Time Temp Pulse Resp B/P (MAP) Pulse Ox O2 Delivery O2 Flow Rate FiO2 12/23/18 06:28 97.2 76 20 98/58 (71) 92 Nasal Cannula 4.0 Status: unchanged Disposition: ADMITTED INPATIENT Condition: Serious Ralph De Anda MD Dec 23, 2018 07:06
--- NOTE | 2018-12-23 07:11 | NUR ---
ED Nurse Note: RT CALLED FOR ABG.
[2018-12-23] MEDS ORDERED: Cefepime HCl 2 GM in NS 110 ML IV SCH (07:15)
[2018-12-23] MEDS ORDERED: Vancomycin 1 GM in NS 275 ML IV ONE (07:15)
[2018-12-23 07:18] LABS: HEMOGLOBIN 15.9 G/DL (14.2-18.0); MEAN CORPUSCULAR VOLUME 90 FL (80-99); PLATELET COUNT 249 K/UL (150-450); RED BLOOD COUNT 5.78 M/UL (4.70-6.10); RED CELL DISTRIBUTION WIDTH 14.6 % (11.6-14.8)
--- NOTE | 2018-12-23 07:18 | NUR ---
ED Nurse Note: RT AT BEDSIDE FOR ABG.
--- NOTE | 2018-12-23 07:22 | NUR ---
ER Nurse Note: Pt WILMER RIBEIRO from [facility] presents with lethargy, AMS, SOB since 0500. Per EMS, pt was found during morning rounds at [facility] with a&ox0, on 4L NC. Skin intact expect amputation of BLE. Pt has g-tube, clamped. All labs collected and sent; awaiting results. Pending x-ray. IV estbalished by second RN; patent and infusing NS. Endored care to oncoming [facility] for continuity of care.
[2018-12-23 07:23] VITALS: BP 116/63
[2018-12-23 07:23] LABS: WHITE BLOOD COUNT 23.1 K/UL (4.8-10.8)
--- NOTE | 2018-12-23 07:23 | NUR ---
ED Nurse Note: REPORT RECEIVED FROM SARAH RIVAS. PT NONVERBAL. PT PRESENTS WITH GTUBE TO MEDIAL UPPER ABDOMEN. BILATERAL ABOVE THE KNEE AMPUTATIONS. PT TACHYCARDIC ON MONITOR - HR: 123, TACHYPNEIC - RR: 37, O2 SAT 97% ON 6L O2 VIA NASAL CANNULA. DR SANTANA AWARE. GARG CATHETER PLACED BY SARAH RIVAS FROM PREVIOUS SHIFT. GARG DRAINING CLOUDY YELLOW URINE. IV PLACED BY PREVIOUS SHIFT - RIGHT HAND 22G AND LEFT HAND 20G.
[2018-12-23 07:27] LABS: ANION GAP 11 mmol/L (5-15); BLOOD UREA NITROGEN 47 mg/dL (7-18); CALCIUM 9.2 MG/DL (8.5-10.1); CARBON DIOXIDE 25 MMOL/L (21-32); CHLORIDE 121 MMOL/L (98-107); CREATININE 0.9 MG/DL (0.55-1.30); POTASSIUM 3.4 MMOL/L (3.5-5.1); SODIUM 157 MMOL/L (136-145)
[2018-12-23 07:40] LABS: ALANINE AMINOTRANSFERASE 110 U/L (12-78); ALBUMIN 2.4 G/DL (3.4-5.0); ALBUMIN/GLOBULIN RATIO 0.4 (1.0-2.7); ALKALINE PHOSPHATASE 102 U/L (46-116); ASPARTATE AMINO TRANSFERASE 109 U/L (15-37); BILIRUBIN,TOTAL 0.5 MG/DL (0.2-1.0); CKMB < 0.5 NG/ML (0.0-3.6); CREATINE KINASE 26 U/L (26-308); PHOSPHORUS 2.4 MG/DL (2.5-4.9)
--- NOTE | 2018-12-23 07:45 | NUR ---
ED Nurse Note: RECTAL TEMP TAKEN - 100.4F. DR SANTANA NOTIFIED.
[2018-12-23 07:50] LABS: APPEARANCE,URINE CLOUDY; BILIRUBIN, URINE NEGATIVE (NEGATIVE); COLOR,URINE YELLOW; GLUCOSE, URINE (UA) NEGATIVE (NEGATIVE); KETONES,URINE NEGATIVE (NEGATIVE); LEUKOCYTE ESTERASE ,URINE 3+ (NEGATIVE); NITRITE,URINE POSITIVE (NEGATIVE); PH,URINE 7 (4.5-8.0); PROTEIN,URINE 3+ (NEGATIVE); UROBILINOGEN,URINE 1 MG/DL (0.0-1.0)
--- NOTE | 2018-12-23 07:52 | NUR ---
ED Nurse Note: XRAY AT BEDSIDE.
[2018-12-23] MEDS ORDERED: Acetaminophen 650 MG SUPP RECTAL ONE (08:00)
--- NOTE | 2018-12-23 08:47 | NUR ---
ED Nurse Note: LACTIC REFLEX SENT TO LAB.
--- NOTE | 2018-12-23 09:41 | NUR ---
ED Nurse Note: SDU CALLED FOR PT REPORT. SARAH BUCKLEY WILL CALL BACK SHORTLY TO RECEIVE REPORT.
[2018-12-23 09:45] VITALS: BP 98/64
--- NOTE | 2018-12-23 09:52 | NUR ---
ED Nurse Note: SDU CALLED AGAIN FOR PT REPORT. SARAH BUCKLEY STILL NOT READY. PER SDU CHARGE NURSE, MARCIO WILL CALL BACK SHORTLY.
--- NOTE | 2018-12-23 10:03 | Diagnostic Imaging Report ---
Indication: Shortness of breath Technique: One view of the chest Comparison: 09/23/2018 Findings: There is persistent elevation left hemidiaphragm and left basilar atelectasis. The lungs and pleural spaces are otherwise clear. The heart size is normal. There is torturous ectatic and calcified. The upper mediastinum is unremarkable. There are degenerative changes of the right shoulder again noted. Surgical clips are seen in the right upper axillary region Impression: No definite acute process. Findings as noted
--- NOTE | 2018-12-23 10:04 | NUR ---
ED Nurse Note: SDU CALLED FOR PT REPORT. REPORT GIVEN TO SARAH BUCKLEY. SARAH BUCKLEY READY TO ACCEPT PT. PT TAKEN UP TO SDU VIA GURNEY ON HYDROELECTRIC OPERATOR WITH ALL BELONGINGS RUNNING IV ABX ACCOMPANIED BY PRIMARY RN AND EMT. VSS.
--- NOTE | 2018-12-23 10:10 | NUR ---
NURSE NOTES: received patient report from niall nur from ER. patient came in via gurney. patient is noted to be non-verbal but able to follow simple commands. noted B AKA. sacral ST2 noted and small wound on the L stump.broker initiated. vitals taken and recorded. no belongings found. called facility for additional info.under the care of dr marques. will follow plan of care.
[2018-12-23] MEDS ORDERED: Albuterol/Ipratropium 3ml neb HHN PRN (11:00)
[2018-12-23] MEDS ORDERED: Nitroglycerin Subl 0.4mg tab SL PRN (11:00)
[2018-12-23] MEDS ORDERED: Miralax 17gm pkt ORAL PRN (11:00)
--- NOTE | 2018-12-23 11:11 | Consultation ---
History of Present Illness General Chief Complaint: Dyspnea/Respdistress Present Illness HPI 68-year-old male with advanced dementia, DM, bilatera AKA, chronic Gtube feeding , on the verge of life, brought in by ambulance with cc of respiratory distress, and shortness of breath. He was less responsive than usual. Patient is normally oriented x1 and somewhat responsive. He was somewhat tachycardic in ER and had temperature to 99 degrees. Per patient's POLST is full code. Allergies: Coded Allergies: No Known Allergies (Unverified , 08/10/18) Medication History Scheduled Allopurinol* (Allopurinol*), 100 MG GT DAILY Amino Acids/Protein Hydrolys (Pro-Stat Liquid), 30 ML ORAL TWICE A DAY, ( Reported) Aspirin* (Aspir 81*), 81 MG ORAL DAILY, (Reported) Atorvastatin Calcium* (Lipitor*), 80 MG ORAL BEDTIME, (Reported) Ceftriaxone Na/Dextrose,Iso (Ceftriaxone 1 Gm Piggyback), 1 GM IV DAILY Cephalexin* (Keflex*), 500 MG ORAL EVERY 12 HOURS Clopidogrel Bisulfate* (Plavix*), 75 MG ORAL DAILY, (Reported) Docusate Sodium* (Docusate Sodium*), 100 MG ORAL TWICE A DAY, (Reported) Magnesium Hydroxide* (Milk Of Magnesia*), 30 ML ORAL DAILY, (Reported) Quetiapine Fumarate* (Seroquel*), 12.5 MG ORAL BID Trimethoprim/Sulfamethoxazole (Bactrim 400-80 mg Tablet), 1 TAB ORAL TWICE A DAY Scheduled PRN Acetaminophen* (Acetaminophen 325MG Tablet*), 500 MG ORAL Q4H PRN for Moderate Pain (Pain Scale 4-6), (Reported) Melatonin (Melatonin), 4 MG ORAL BEDTIME PRN for Insomnia, (Reported) Tramadol Hcl* (Ultram*), 50 MG ORAL Q6H PRN for For Pain, (Reported) Miscellaneous Medications Megestrol Acetate (Megestrol Acetate), 40 MG PO, (Reported) Vit C/Ascorb Sod/Multivit-Min (Emergen-C 500 mg Chewable Tab), 500 MG PO, ( Reported) Patient History Healthcare decision maker Resuscitation status Advanced Directive on File Past Medical/Surgical History Past Medical/Surgical History: (1) CVA (cerebral vascular accident) (2) Feeding by G-tube (3) Alzheimer's dementia (4) Decubitus skin ulcer (5) S/P AKA (above knee amputation) bilateral Review of Systems All Other Systems: negative except mentioned in HPI Physical Exam General Appearance: WD/WN, no apparent distress Lines, tubes and drains: peripheral HEENT: normocephalic, atraumatic Neck: non-tender, supple Respiratory/Chest: chest wall non-tender, lungs clear, normal breath sounds Breasts: no masses Cardiovascular/Chest: normal peripheral pulses Abdomen: normal bowel sounds, non tender Last 24 Hour Vital Signs Date Time Temp Pulse Resp B/P (MAP) Pulse Ox O2 Delivery O2 Flow Rate FiO2 12/23/18 10:04 99.0 107 24 100/59 96 Nasal Cannula 6.0 12/23/18 09:45 99.0 108 26 98/64 97 Nasal Cannula 6.0 12/23/18 09:39 99.0 12/23/18 07:23 100.4 123 37 116/63 97 Nasal Cannula 6.0 12/23/18 07:23 123 37 Nasal Cannula 6.0 12/23/18 06:28 97.2 76 20 98/58 (71) 92 Nasal Cannula 4.0 Laboratory Tests Test 12/23/18 07:01 12/23/18 07:06 12/23/18 07:07 12/23/18 09:25 White Blood Count 23.1 K/UL (4.8-10.8) *H Red Blood Count 5.78 M/UL (4.70-6.10) Hemoglobin 15.9 G/DL (14.2-18.0) Hematocrit 52.0 % (42.0-52.0) Mean Corpuscular Volume 90 FL (80-99) Mean Corpuscular Hemoglobin 27.5 PG (27.0-31.0) Mean Corpuscular Hemoglobin Concent 30.6 G/DL (32.0-36.0) L Red Cell Distribution Width 14.6 % (11.6-14.8) Platelet Count 249 K/UL (150-450) Mean Platelet Volume 6.9 FL (6.5-10.1) Neutrophils (%) (Auto) % (45.0-75.0) Lymphocytes (%) (Auto) % (20.0-45.0) Monocytes (%) (Auto) % (1.0-10.0) Eosinophils (%) (Auto) % (0.0-3.0) Basophils (%) (Auto) % (0.0-2.0) Differential Total Cells Counted 100 Neutrophils % (Manual) 73 % (45-75) Lymphocytes % (Manual) 15 % (20-45) L Monocytes % (Manual) 8 % (1-10) Eosinophils % (Manual) 0 % (0-3) Basophils % (Manual) 0 % (0-2) Band Neutrophils 4 % (0-8) Platelet Estimate Adequate Platelet Morphology Normal Red Blood Cell Morphology Normal Sodium Level 157 MMOL/L (136-145) H Potassium Level 3.4 MMOL/L (3.5-5.1) L Chloride Level 121 MMOL/L (98-107) H Carbon Dioxide Level 25 MMOL/L (21-32) Anion Gap 11 mmol/L (5-15) Blood Urea Nitrogen 47 mg/dL (7-18) H Creatinine 0.9 MG/DL (0.55-1.30) Estimat Glomerular Filtration Rate > 60 mL/min (>60) Glucose Level 143 MG/DL (74-106) H Lactic Acid Level 2.30 mmol/L (0.4-2.0) H 1.80 mmol/L (0.66-2.22) Calcium Level 9.2 MG/DL (8.5-10.1) Phosphorus Level 2.4 MG/DL (2.5-4.9) L Magnesium Level 2.5 MG/DL (1.8-2.4) H Total Bilirubin 0.5 MG/DL (0.2-1.0) Aspartate Amino Transf (AST/SGOT) 109 U/L (15-37) H Alanine Aminotransferase (ALT/SGPT) 110 U/L (12-78) H Alkaline Phosphatase 102 U/L (46-116) Total Creatine Kinase 26 U/L (26-308) Creatine Kinase MB < 0.5 NG/ML (0.0-3.6) Creatine Kinase MB Relative Index Troponin I 0.020 ng/mL (0.000-0.056) Pro-B-Type Natriuretic Peptide 2259 pg/mL (0-125) H Total Protein 9.1 G/DL (6.4-8.2) H Albumin 2.4 G/DL (3.4-5.0) L Globulin 6.7 g/dL Albumin/Globulin Ratio 0.4 (1.0-2.7) L Lipase 62 U/L (73-393) L Arterial Blood pH 7.415 (7.350-7.450) Arterial Blood Partial Pressure CO2 32.9 mmHg (35.0-45.0) L Arterial Blood Partial Pressure O2 90.8 mmHg (75.0-100.0) Arterial Blood HCO3 20.6 mmol/L (22.0-26.0) L Arterial Blood Oxygen Saturation 97.0 % (95-100) Arterial Blood Base Excess -3.0 (-2-2) L Sudheer Test Positive Urine Color Yellow Urine Appearance Cloudy Urine pH 7 (4.5-8.0) Urine Specific [place] 1.010 (1.005-1.035) Urine Protein 3+ (NEGATIVE) H Urine Glucose (UA) Negative (NEGATIVE) Urine Ketones Negative (NEGATIVE) Urine Blood 4+ (NEGATIVE) H Urine Nitrite Positive (NEGATIVE) H Urine Bilirubin Negative (NEGATIVE) Urine Urobilinogen 1 MG/DL (0.0-1.0) H Urine Leukocyte Esterase 3+ (NEGATIVE) H Urine RBC 15-20 /HPF (0 - 0) H Urine WBC Tntc /HPF (0 - 0) H Urine Squamous Epithelial Cells Few /LPF (NONE/OCC) Urine Bacteria Many /HPF (NONE) H Microbiology Date/Time Source Procedure Growth Status 12/23/18 07:46 Rectum Received Height (Feet): 3 Height (Inches): 4.00 Weight (Pounds): 90 Medications Current Medications Medications (Trade) Dose Ordered Sig/Jennifer Route PRN Reason Start Time Stop Time Status Last Admin Dose Admin Acetaminophen (Tylenol) 650 mg Q4H PRN ORAL fever 12/23/18 11:00 01/22/19 10:59 UNV Albuterol/ Ipratropium (Albuterol/ Ipratropium) 3 ml EVERY 4 HOURS PRN HHN Shortness of Breath 12/23/18 11:00 12/28/18 10:59 UNV Allopurinol (Zyloprim) 100 mg DAILY ORAL 12/24/18 09:00 01/23/19 08:59 Cefepime HCl 2 gm/ Dextrose 110 ml @ 220 mls/hr EVERY 12 HOURS IV 12/23/18 21:00 12/30/18 20:59 UNV Cefepime HCl 2 gm/ Sodium Chloride 110 ml @ 220 mls/hr Q12H IV 12/23/18 07:15 12/24/18 07:14 12/23/18 07:23 Clopidogrel Bisulfate (Plavix) 75 mg DAILY ORAL 12/24/18 09:00 01/23/19 08:59 Dextrose (Dextrose 50%) STAT PRN IV Hypoglycemia 12/23/18 11:00 01/22/19 10:59 UNV Heparin Sodium (Porcine) (Heparin 5000 units/ml) 5,000 units EVERY 12 HOURS SUBQ 12/23/18 21:00 01/22/19 20:59 UNV Insulin Aspart (NovoLOG) BEFORE MEALS AND HS SUBQ 12/23/18 11:30 01/22/19 11:29 UNV Metronidazole 100 ml @ 100 mls/hr Q6H IV 12/23/18 07:15 12/24/18 07:14 12/23/18 07:58 Nitroglycerin (Ntg) 0.4 mg Every 5 Minutes PRN SL Prn Chest Pain 12/23/18 11:00 01/22/19 10:59 UNV Ondansetron HCl (Zofran) 4 mg Q6H PRN IVP Nausea & Vomiting 12/23/18 11:00 01/22/19 10:59 UNV Polyethylene Glycol (Miralax) 17 gm DAILYPRN PRN ORAL Constipation 12/23/18 11:00 01/22/19 10:59 UNV Quetiapine Fumarate (SEROquel) 12.5 mg BID ORAL 12/23/18 18:00 01/22/19 17:59 Sodium Chloride 1,000 ml @ 100 mls/hr Q10H IVLG 12/24/18 10:46 01/23/19 10:45 UNV Vancomycin HCl 1 gm/Dextrose 275 ml @ 183.3 mls/ hr Q24H IV 12/24/18 00:30 12/29/18 00:29 UNV Assessment/Plan Problem List: (1) Acute encephalopathy ICD Codes: G93.40 - Encephalopathy, unspecified SNOMED: 04772629, 419320993 (2) Sepsis ICD Codes: A41.9 - Sepsis, unspecified organism SNOMED: 29145798 (3) ATN (acute tubular necrosis) ICD Codes: N17.0 - Acute kidney failure with tubular necrosis SNOMED: 91908037 (4) UTI (urinary tract infection) ICD Codes: N39.0 - Urinary tract infection, site not specified SNOMED: 45501726 (5) Alzheimer's dementia ICD Codes: G30.9 - Alzheimer's disease, unspecified; F02.80 - Dementia in other diseases classified elsewhere without behavioral disturbance SNOMED: 75734354 (6) Decubitus skin ulcer ICD Codes: L89.90 - Pressure ulcer of unspecified site, unspecified stage SNOMED: 780517052 (7) CVA (cerebral vascular accident) ICD Codes: I63.9 - Cerebral infarction, unspecified SNOMED: 304601374 (8) Feeding by G-tube ICD Codes: Z93.1 - Gastrostomy status SNOMED: 416581003, 502331075, 144324053 (9) S/P AKA (above knee amputation) bilateral ICD Codes: Z89.611 - Acquired absence of right leg above knee; Z89.612 - Acquired absence of left leg above knee SNOMED: 35610366, 155384188 Assessment/Plan: huggins culture iv abx iv fluids stool for C-diff aspiration precaution dvt prophylaxis Jaylin Dickson MD Dec 23, 2018 11:10
[2018-12-23] MEDS: NovoLOG Insulin Flexpen SUBQ SCH ×3 (11:30→21:31)
--- NOTE | 2018-12-23 11:54 | NUR ---
Social Work This Sw received a consult to discuss end of life decision making with family. Donte Mcarthur ([phone]) signed a POLST on chart requesting full code, full treatment, with feeding tubes as needed. This SW left a message with Donte; awaiting call back at this time.
--- NOTE | 2018-12-23 12:04 | Consultation ---
History of Present Illness General Date patient seen: Dec 23, 2018 Chief Complaint: Dyspnea/Respdistress Present Illness HPI 68 y/o M with hx of advanced dementia, PVD, CVA, HTN, non verbal, Dm2, b/l AKA, dysphagia s/p GT, NH resident presents to ED on 12/23 with respiratory distress, SOB, less responsive than usual Allergies: Coded Allergies: No Known Allergies (Unverified , 08/10/18) Medication History Scheduled Allopurinol* (Allopurinol*), 100 MG GT DAILY Amino Acids/Protein Hydrolys (Pro-Stat Liquid), 30 ML ORAL TWICE A DAY, ( Reported) Aspirin* (Aspir 81*), 81 MG ORAL DAILY, (Reported) Atorvastatin Calcium* (Lipitor*), 80 MG ORAL BEDTIME, (Reported) Ceftriaxone Na/Dextrose,Iso (Ceftriaxone 1 Gm Piggyback), 1 GM IV DAILY Cephalexin* (Keflex*), 500 MG ORAL EVERY 12 HOURS Clopidogrel Bisulfate* (Plavix*), 75 MG ORAL DAILY, (Reported) Docusate Sodium* (Docusate Sodium*), 100 MG ORAL TWICE A DAY, (Reported) Magnesium Hydroxide* (Milk Of Magnesia*), 30 ML ORAL DAILY, (Reported) Quetiapine Fumarate* (Seroquel*), 12.5 MG ORAL BID Trimethoprim/Sulfamethoxazole (Bactrim 400-80 mg Tablet), 1 TAB ORAL TWICE A DAY Scheduled PRN Acetaminophen* (Acetaminophen 325MG Tablet*), 500 MG ORAL Q4H PRN for Moderate Pain (Pain Scale 4-6), (Reported) Melatonin (Melatonin), 4 MG ORAL BEDTIME PRN for Insomnia, (Reported) Tramadol Hcl* (Ultram*), 50 MG ORAL Q6H PRN for For Pain, (Reported) Miscellaneous Medications Megestrol Acetate (Megestrol Acetate), 40 MG PO, (Reported) Vit C/Ascorb Sod/Multivit-Min (Emergen-C 500 mg Chewable Tab), 500 MG PO, ( Reported) Patient History Healthcare decision maker Resuscitation status Full Code Advanced Directive on File Patient History Narrative Pmhx: as above Shx: reviewed Fhx: non contributory Review of Systems All Other Systems: negative except mentioned in HPI Physical Exam Physical Exam Narrative General Appearance: alert, thin, Chronically Ill Eyes: bilateral eye PERRL ENT: dry mucus membranes Neck: limited range of motion Respiratory: lungs clear, normal breath sounds, other - tachypnea Cardiovascular #1: other - bilateral aka Gastrointestinal: normal inspection, non tender, soft Musculoskeletal: other - bilateral aka Neurologic: alert, aphasia, other - responsive Psychiatric: anxious Skin: no rash Last 24 Hour Vital Signs Date Time Temp Pulse Resp B/P (MAP) Pulse Ox O2 Delivery O2 Flow Rate FiO2 12/23/18 10:51 Nasal Cannula 6.0 12/23/18 10:04 99.0 107 24 100/59 96 Nasal Cannula 6.0 12/23/18 09:45 99.0 108 26 98/64 97 Nasal Cannula 6.0 12/23/18 09:39 99.0 12/23/18 07:23 100.4 123 37 116/63 97 Nasal Cannula 6.0 12/23/18 07:23 123 37 Nasal Cannula 6.0 12/23/18 06:28 97.2 76 20 98/58 (71) 92 Nasal Cannula 4.0 Laboratory Tests Test 12/23/18 07:01 12/23/18 07:06 12/23/18 07:07 12/23/18 09:25 White Blood Count 23.1 K/UL (4.8-10.8) *H Red Blood Count 5.78 M/UL (4.70-6.10) Hemoglobin 15.9 G/DL (14.2-18.0) Hematocrit 52.0 % (42.0-52.0) Mean Corpuscular Volume 90 FL (80-99) Mean Corpuscular Hemoglobin 27.5 PG (27.0-31.0) Mean Corpuscular Hemoglobin Concent 30.6 G/DL (32.0-36.0) L Red Cell Distribution Width 14.6 % (11.6-14.8) Platelet Count 249 K/UL (150-450) Mean Platelet Volume 6.9 FL (6.5-10.1) Neutrophils (%) (Auto) % (45.0-75.0) Lymphocytes (%) (Auto) % (20.0-45.0) Monocytes (%) (Auto) % (1.0-10.0) Eosinophils (%) (Auto) % (0.0-3.0) Basophils (%) (Auto) % (0.0-2.0) Differential Total Cells Counted 100 Neutrophils % (Manual) 73 % (45-75) Lymphocytes % (Manual) 15 % (20-45) L Monocytes % (Manual) 8 % (1-10) Eosinophils % (Manual) 0 % (0-3) Basophils % (Manual) 0 % (0-2) Band Neutrophils 4 % (0-8) Platelet Estimate Adequate Platelet Morphology Normal Red Blood Cell Morphology Normal Sodium Level 157 MMOL/L (136-145) H Potassium Level 3.4 MMOL/L (3.5-5.1) L Chloride Level 121 MMOL/L (98-107) H Carbon Dioxide Level 25 MMOL/L (21-32) Anion Gap 11 mmol/L (5-15) Blood Urea Nitrogen 47 mg/dL (7-18) H Creatinine 0.9 MG/DL (0.55-1.30) Estimat Glomerular Filtration Rate > 60 mL/min (>60) Glucose Level 143 MG/DL (74-106) H Lactic Acid Level 2.30 mmol/L (0.4-2.0) H 1.80 mmol/L (0.66-2.22) Uric Acid 9.5 MG/DL (2.6-7.2) H Calcium Level 9.2 MG/DL (8.5-10.1) Phosphorus Level 2.4 MG/DL (2.5-4.9) L Magnesium Level 2.5 MG/DL (1.8-2.4) H Total Bilirubin 0.5 MG/DL (0.2-1.0) Aspartate Amino Transf (AST/SGOT) 109 U/L (15-37) H Alanine Aminotransferase (ALT/SGPT) 110 U/L (12-78) H Alkaline Phosphatase 102 U/L (46-116) Total Creatine Kinase 26 U/L (26-308) Creatine Kinase MB < 0.5 NG/ML (0.0-3.6) Creatine Kinase MB Relative Index Troponin I 0.020 ng/mL (0.000-0.056) Pro-B-Type Natriuretic Peptide 2259 pg/mL (0-125) H Total Protein 9.1 G/DL (6.4-8.2) H Albumin 2.4 G/DL (3.4-5.0) L Globulin 6.7 g/dL Albumin/Globulin Ratio 0.4 (1.0-2.7) L Lipase 62 U/L (73-393) L Free Thyroxine 1.49 NG/DL (0.76-1.46) H Arterial Blood pH 7.415 (7.350-7.450) Arterial Blood Partial Pressure CO2 32.9 mmHg (35.0-45.0) L Arterial Blood Partial Pressure O2 90.8 mmHg (75.0-100.0) Arterial Blood HCO3 20.6 mmol/L (22.0-26.0) L Arterial Blood Oxygen Saturation 97.0 % (95-100) Arterial Blood Base Excess -3.0 (-2-2) L Sudheer Test Positive Urine Color Yellow Urine Appearance Cloudy Urine pH 7 (4.5-8.0) Urine Specific [place] 1.010 (1.005-1.035) Urine Protein 3+ (NEGATIVE) H Urine Glucose (UA) Negative (NEGATIVE) Urine Ketones Negative (NEGATIVE) Urine Blood 4+ (NEGATIVE) H Urine Nitrite Positive (NEGATIVE) H Urine Bilirubin Negative (NEGATIVE) Urine Urobilinogen 1 MG/DL (0.0-1.0) H Urine Leukocyte Esterase 3+ (NEGATIVE) H Urine RBC 15-20 /HPF (0 - 0) H Urine WBC Tntc /HPF (0 - 0) H Urine Squamous Epithelial Cells Few /LPF (NONE/OCC) Urine Bacteria Many /HPF (NONE) H Microbiology Date/Time Source Procedure Growth Status 12/23/18 07:46 Rectum Received Height (Feet): 3 Height (Inches): 4.00 Weight (Pounds): 90 Medications Current Medications Medications (Trade) Dose Ordered Sig/Jennifer Route PRN Reason Start Time Stop Time Status Last Admin Dose Admin Acetaminophen (Tylenol) 650 mg Q4H PRN ORAL fever 12/23/18 11:00 01/22/19 10:59 Albuterol/ Ipratropium (Albuterol/ Ipratropium) 3 ml Q4H PRN HHN Shortness of Breath 12/23/18 11:00 12/28/18 10:59 Allopurinol (Zyloprim) 100 mg DAILY ORAL 12/24/18 09:00 01/23/19 08:59 Cefepime HCl 2 gm/ Dextrose 110 ml @ 220 mls/hr Q24H IV 12/23/18 20:00 12/30/18 19:59 Clopidogrel Bisulfate (Plavix) 75 mg DAILY ORAL 12/24/18 09:00 01/23/19 08:59 Dextrose (Dextrose 50%) 25 ml Q30M PRN IV Hypoglycemia 12/23/18 11:00 01/22/19 10:59 Dextrose (Dextrose 50%) 50 ml Q30M PRN IV Hypoglycemia 12/23/18 11:00 01/22/19 10:59 Heparin Sodium (Porcine) (Heparin 5000 units/ml) 5,000 units EVERY 12 HOURS SUBQ 12/23/18 21:00 01/22/19 20:59 Insulin Aspart (NovoLOG) BEFORE MEALS AND HS SUBQ 12/23/18 11:30 01/22/19 11:29 Metronidazole 100 ml @ 100 mls/hr Q6H IV 12/23/18 07:15 12/24/18 07:14 12/23/18 07:58 Nitroglycerin (Ntg) 0.4 mg Q5M PRN SL Prn Chest Pain 12/23/18 11:00 01/22/19 10:59 Ondansetron HCl (Zofran) 4 mg Q6H PRN IVP Nausea & Vomiting 12/23/18 11:00 01/22/19 10:59 Polyethylene Glycol (Miralax) 17 gm DAILYPRN PRN ORAL Constipation 12/23/18 11:00 01/22/19 10:59 Quetiapine Fumarate (SEROquel) 12.5 mg BID ORAL 12/23/18 18:00 01/22/19 17:59 Sodium Chloride 1,000 ml @ 100 mls/hr Q10H IVLG 12/24/18 10:46 01/23/19 10:45 Vancomycin HCl (Vanco rx to dose) 1 ea DAILY PRN MISC Per rx protocol 12/23/18 11:00 01/22/19 10:59 Vancomycin HCl 750 mg/Sodium Chloride 275 ml @ 183.333 mls/hr Q24H IVPB 12/24/18 09:00 12/29/18 08:59 Assessment/Plan Assessment/Plan: Abx: IV Vancomycin 12/23- Cefepime 12/23- Flagyl 12/23- Assessment: Sepsis- likely 2ry to UTI- r.o bacteremia -Bcx p -CXR: No definite acute process. Findings as noted -u/a wbc tnct, nit+, leuk +3; ucx p Low grade fever x1 Leukocytosis Acute on chronic Encephalopathy advanced dementia PVD CVA HTN non verbal Dm2 b/l AKA dysphagia s/p GT NH resident Plan: -Continue empiric Cefepime #1 for UTI pending ucx -Continue empiric IV Vancomycin #1 for now pending Bcx -if BCx with no gram positive growth, will d.c -Dc empiric Flagyl #1 -f/u cx -Monitor CBC/CMP, temperatures -aspiration precautions -cdiff if diarrhea Thank you for this consultation. Will continue to follow along with you. Discussed with SARAH. Deepti Connolly M.D. Dec 23, 2018 12:04
[2018-12-23 13:44] LABS: APPEARANCE,URINE CLOUDY; BILIRUBIN, URINE NEGATIVE (NEGATIVE); COLOR,URINE YELLOW; GLUCOSE, URINE (UA) NEGATIVE (NEGATIVE); KETONES,URINE 1+ (NEGATIVE); LEUKOCYTE ESTERASE ,URINE 3+ (NEGATIVE); NITRITE,URINE POSITIVE (NEGATIVE); PH,URINE 7 (4.5-8.0); PROTEIN,URINE 3+ (NEGATIVE); UROBILINOGEN,URINE NORMAL MG/DL (0.0-1.0)
--- NOTE | 2018-12-23 18:53 | NUR ---
CASE MANAGEMENT: REVIEW 68Y/M [facility]ILMER FROM [facility] CC: DYSPNEA/RESP DISTRESS SI: SEPSIS . ENCEPHALOPATHY . UTI . T 99.0 HR 121 RR 24 BP 100/59 SAT 96% NC/3L WBC 23.1 NA 157 BUN 47 AST 109 ALT 110 BNP 2259 UA: PROTEIN 3+ KETONE 1+ NITRIT + LEUKO ESTERASE 3+ IS: TYLENOL RECTAL X1 VANCO IV X1 CEFEPIME IV X1 FLAGYL IV X1 NS IVF BOLUS X1 PATIENT ADMITTED TO STEP DOWN UNIT 12/23/2018 DCP: PATIENT IS FROM [facility]
--- NOTE | 2018-12-23 19:28 | NUR ---
NURSE NOTES: Received patient from SARAH Urbina. patient is observed resting in bed, nonverbal; no s/sx of pain noted at this time. patient is on 3 L O2 via NC. no s/sx of respiratory distress ntoed at this time. G-tube site is patent and intact, running feeding at 30 cc/hr at this time. HOB elevated, no residual noted. F/C is patent and intact, draining well. No IV access at this time. bed in lowest position and locked, siderails up X2, call light within reach. will continue to monitor.
--- NOTE | 2018-12-23 19:29 | History & Physical ---
History and Physical History & Physicial Dictated for Int Med-Dr Marshall no. [id number]. Darrick Stout MD Dec 23, 2018 19:29
--- NOTE | 2018-12-23 19:29 | NUR ---
HAND-OFF: Report given to kirk nur.
[2018-12-23 20:00] VITALS: BP 100/65
[2018-12-23] MEDS: Cefepime HCl 2 GM in D5W 110 ML IV SCH (20:00)
--- NOTE | 2018-12-23 20:00 | NUR ---
NURSE NOTES: increased patient's feeding to 40 cc/hr. no residual noted, HOB elevated.
--- NOTE | 2018-12-23 21:01 | NUR ---
NURSE NOTES: left message for Dr. Dickson regarding patient's heart rates of 110-130 and cardiac rhythm showing sinus tachycardia, PVCs, and BBB. awaiting reply.
[2018-12-23] MEDS: Heparin 5000 units/ml inj SUBQ SCH (21:28)
[2018-12-24] VITALS: BP 115/72
[2018-12-24] MEDS ORDERED: Vancomycin 1 GM in D5W 275 ML IV SCH (00:30)
--- NOTE | 2018-12-24 00:30 | History and Physical Report ---
DATE OF ADMISSION: 12/23/2018 CHIEF COMPLAINT: The patient is a 68-year-old male, who presents with a chief complaint of respiratory distress. HISTORY OF PRESENT ILLNESS: The patient was admitted to [facility] from 09/23/2018 to 09/30/2018. Please see history and physical and discharge summary dictated at that time. The patient is a resident of [facility]. The patient is nonverbal at baseline. The patient receives G-tube feeding. The patient was noted to have increased shortness of breath early this morning at [facility]. The patient is Full Code. The patient was transferred to [facility] emergency room for evaluation. The patient was admitted for shortness of breath to rule out pneumonia. PAST MEDICAL HISTORY: Significant for, 1. Diabetes type 2. 2. Hypertension. 3. Cerebrovascular disease, status post cerebrovascular accident x2. 4. Dysphagia, status post PEG placement. 5. Alzheimer's dementia. 6. History of alcohol abuse. 7. History of heroin abuse. PAST SURGICAL HISTORY: Significant for, 1. Bilateral lower extremity [id number] amputation. 2. PEG placement in July of 2018 at [facility]. CURRENT MEDICATIONS: 1. Tylenol 650 mg per G-tube q.4 hours p.r.n. 2. Allopurinol 100 mg per G-tube daily. 3. Aspirin 81 mg per G-tube daily. 4. Atorvastatin 80 mg per G-tube at bedtime. 5. Plavix 75 mg per G-tube daily. 6. Megace 40 mg per G-tube twice daily. 7. Seroquel 12.5 mg per G-tube twice daily. 8. Tramadol 50 mg per G-tube q.6 hours p.r.n. 9. Vitamin C 500 mg per G-tube daily. ALLERGIES: No known drug allergies. SOCIAL HISTORY: The patient is single. He is a resident of [facility] as above. The patient denies tobacco or alcohol use. REVIEW OF SYSTEMS: Unable to assess secondary to the patient's mental status. PHYSICAL EXAMINATION: VITAL SIGNS: Temperature 97.2, respirations 20, pulse 76, blood pressure 98/58, and oxygen saturation 92% on 4 liters per nasal cannula. GENERAL: The patient is a well-developed and well-nourished slightly obese male, in no apparent distress. HEENT: Eyes, pupils are equal and responsive to light and accommodation. Extraocular movements are intact. NECK: Supple without lymphadenopathy. CHEST: Decreased breath sounds at bilateral bases. Otherwise, without wheezes or rales. CARDIOVASCULAR: Regular rhythm and rate. S1 and S2 normal without murmurs, rubs, or gallops. ABDOMINAL: Soft, nontender, and nondistended. Positive bowel sounds. No evidence of hepatosplenomegaly. Currently, no rebound or guarding noted. EXTREMITIES: Negative for clubbing, cyanosis, or edema. RECTAL/GENITAL: Not performed. NEUROLOGIC: Cranial nerves II through XII are grossly intact without focal deficits. LABORATORY STUDIES: WBC 23.1, hemoglobin 15.9, hematocrit 52.0, and platelets 249,000. Sodium 157, potassium 3.4, chloride 121, CO2 25, BUN 47, creatinine 0.9, and glucose 143. AST elevated at 109. ALT elevated at 110. BNP elevated at 2259. Troponin normal at 0.02. The chest x-ray is reported as no acute disease. ASSESSMENT: This is a 68-year-old male. 1. Respiratory distress. 2. Shortness of breath. 3. Leukocytosis. 4. Probable sepsis. 5. Diabetes type 2. 6. Hypertension. 7. Cerebrovascular disease. 8. Dysphagia. 9. Alzheimer's dementia. TREATMENT: 1. Respiratory distress/shortness of breath. A Pulmonary consultation has been obtained with Dr. Jaylin Dickson. An initial chest x-ray is reported as no acute disease. We will follow recommendation of Pulmonary. 2. Urinary tract infection. Initial urine showed wbc too numerous to count. A urine culture is pending. The patient has been started empirically on vancomycin and cefepime. Await urine and blood cultures. 3. Probable sepsis. As above, the patient has been started on vancomycin and cefepime. Urine and blood cultures are pending. 4. Diabetes type 2. NovoLog sliding scale has been instituted. 5. Hypertension. The patient is currently hypotensive. 6. Cerebrovascular disease. Continue Plavix and aspirin as above. 7. Dysphagia. Continue tube feeds as above. 8. Alzheimer's dementia. Darrick Stout, M.D. DR: MARTA JOB#: [id number] CC:
[2018-12-24 04:00] VITALS: BP 104/70
[2018-12-24 04:34] LABS: HEMATOCRIT 44.1 % (42.0-52.0); HEMOGLOBIN 13.6 G/DL (14.2-18.0); MEAN CORPUSCULAR VOLUME 91 FL (80-99); PLATELET COUNT 243 K/UL (150-450); RED BLOOD COUNT 4.85 M/UL (4.70-6.10); RED CELL DISTRIBUTION WIDTH 14.9 % (11.6-14.8)
[2018-12-24 04:50] LABS: ALANINE AMINOTRANSFERASE 136 U/L (12-78); ALBUMIN 2.1 G/DL (3.4-5.0); ALBUMIN/GLOBULIN RATIO 0.4 (1.0-2.7); ALKALINE PHOSPHATASE 94 U/L (46-116); ANION GAP 8 mmol/L (5-15); ASPARTATE AMINO TRANSFERASE 106 U/L (15-37); BILIRUBIN,TOTAL 0.4 MG/DL (0.2-1.0); BLOOD UREA NITROGEN 42 mg/dL (7-18); CALCIUM 8.7 MG/DL (8.5-10.1); CARBON DIOXIDE 24 MMOL/L (21-32); CHLORIDE 128 MMOL/L (98-107); CREATININE 0.7 MG/DL (0.55-1.30); POTASSIUM 3.2 MMOL/L (3.5-5.1); SODIUM 160 MMOL/L (136-145)
--- NOTE | 2018-12-24 05:15 | NUR ---
NURSE NOTES: left message for Dr. Dickson regarding patient's abnormal troponin, sodium, and potassium lab values. awaiting call back.
[2018-12-24] MEDS: NovoLOG Insulin Flexpen SUBQ SCH ×4 (06:04→20:13)
--- NOTE | 2018-12-24 07:35 | NUR ---
HAND-OFF: Report given to SARAH Madden. patient is in stable condition. endorsed to day shift nurse to follow up with MD regarding abnormal labs.
[2018-12-24 08:00] VITALS: BP 111/55
[2018-12-24] MEDS ORDERED: Vancomycin 750mg/NS 275ml IVPB SCH ×4 (09:00→20:00)
[2018-12-24] MEDS: Allopurinol 100mg Tab ORAL SCH (09:15)
[2018-12-24] MEDS: Heparin 5000 units/ml inj SUBQ SCH ×2 (09:17→20:11)
--- NOTE | 2018-12-24 09:46 | Pulmonology Progress Note ---
Assessment/Plan Problems: (1) Acute encephalopathy (2) Sepsis (3) ATN (acute tubular necrosis) (4) UTI (urinary tract infection) (5) Alzheimer's dementia (6) Decubitus skin ulcer (7) CVA (cerebral vascular accident) (8) Feeding by G-tube (9) S/P AKA (above knee amputation) bilateral Assessment/Plan improving VS stable iv fluids check K and bun Urine has GNR, f/u ID continue Gtube feeding Subjective ROS Limited/Unobtainable: No Constitutional: Reports: no symptoms HEENT: Repors: no symptoms Respiratory: Reports: no symptoms Allergies: Coded Allergies: No Known Allergies (Unverified , 08/10/18) Objective Last 24 Hour Vital Signs Date Time Temp Pulse Resp B/P (MAP) Pulse Ox O2 Delivery O2 Flow Rate FiO2 12/24/18 08:00 98.1 98 24 111/55 (73) 97 12/24/18 04:00 Nasal Cannula 3.0 12/24/18 04:00 97.7 95 28 104/70 (81) 100 12/24/18 03:24 97 12/24/18 00:00 Nasal Cannula 3.0 12/24/18 00:00 97.5 112 26 115/72 (86) 100 12/24/18 00:00 112 12/23/18 21:43 97 Nasal Cannula 3.0 32 12/23/18 21:43 82 16 97 Nasal Cannula 3.0 32 12/23/18 20:00 3.0 12/23/18 20:00 Nasal Cannula 3.0 12/23/18 20:00 129 12/23/18 20:00 97.5 129 26 100/65 (77) 95 12/23/18 16:00 3.0 12/23/18 16:00 Nasal Cannula 3.0 12/23/18 16:00 121 12/23/18 12:07 3.0 12/23/18 12:00 Nasal Cannula 3.0 12/23/18 11:42 106 12/23/18 10:51 Nasal Cannula 6.0 12/23/18 10:04 99.0 107 24 100/59 96 Nasal Cannula 6.0 Intake and Output 12/23/18 12/24/18 19:00 07:00 Intake Total 1350 ml 860 ml Output Total 400 ml 500 ml Balance 950 ml 360 ml Intake Free Water 60 ml 150 ml IV Total 1110 ml 220 ml Tube Feeding 180 ml 490 ml Output Urine Total 400 ml 500 ml # Voids 1 # Bowel Movements 1 General Appearance: WD/WN HEENT: normocephalic, atraumatic Respiratory/Chest: chest wall non-tender, normal breath sounds Cardiovascular: normal rate, regular rhythm Abdomen: soft, non tender, non distended Microbiology Date/Time Source Procedure Growth Status 12/23/18 07:46 Nasal Nares MRSA Culture - Final Staphylococcus Aureus - Mrsa Complete 12/23/18 12:15 Urine,Clean Catch Urine Culture - Preliminary NO GROWTH Resulted 12/23/18 07:07 Urine,Clean Catch Urine Culture - Preliminary Gram Negative Bacillus 1 Resulted 12/23/18 07:46 Rectum Received Laboratory Tests 12/23/18 12:15: Urine Color Yellow, Urine Appearance Cloudy, Urine pH 7, Urine Specific [place] 1.005, Urine Protein 3+H, Urine Glucose (UA) Negative, Urine Ketones 1+H, Urine Blood 4+H, Urine Nitrite PositiveH, Urine Bilirubin Negative, Urine Urobilinogen Normal, Urine Leukocyte Esterase 3+H, Urine RBC 10-15H, Urine WBC TntcH, Urine Squamous Epithelial Cells Occasional, Urine Bacteria ModerateH, Urine Eosinophils None seen, Urine Random Sodium 21, Urine Random Chloride 41L, Urine Potassium Timed 42 12/24/18 03:35: White Blood Count 18.0H, Red Blood Count 4.85, Hemoglobin 13.6L, Hematocrit 44.1 , Mean Corpuscular Volume 91, Mean Corpuscular Hemoglobin 27.9, Mean Corpuscular Hemoglobin Concent 30.8L, Red Cell Distribution Width 14.9H, Platelet Count 243, Mean Platelet Volume 6.8, Neutrophils (%) (Auto) , Lymphocytes (%) (Auto) , Monocytes (%) (Auto) , Eosinophils (%) (Auto) , Basophils (%) (Auto) , Differential Total Cells Counted 100, Neutrophils % ( Manual) 71, Lymphocytes % (Manual) 21, Monocytes % (Manual) 8, Eosinophils % ( Manual) 0, Basophils % (Manual) 0, Band Neutrophils 0, Platelet Estimate Adequate, Platelet Morphology Normal, Sodium Level 160H, Potassium Level 3.2L, Chloride Level 128H, Carbon Dioxide Level 24, Anion Gap 8, Blood Urea Nitrogen 42H, Creatinine 0.7, Estimat Glomerular Filtration Rate > 60, Glucose Level 125H , Calcium Level 8.7, Total Bilirubin 0.4, Aspartate Amino Transf (AST/SGOT) 106H , Alanine Aminotransferase (ALT/SGPT) 136H, Alkaline Phosphatase 94, Troponin I 0.132H, Pro-B-Type Natriuretic Peptide 1761H, Total Protein 7.6, Albumin 2.1L, Globulin 5.5, Albumin/Globulin Ratio 0.4L Current Medications Medications (Trade) Dose Ordered Sig/Jennifer Route PRN Reason Start Time Stop Time Status Last Admin Dose Admin Acetaminophen (Tylenol) 650 mg Q4H PRN ORAL Mild Pain/Temp > 100.5 12/23/18 23:00 01/22/19 10:59 12/23/18 22:12 Albuterol/ Ipratropium (Albuterol/ Ipratropium) 3 ml Q4H PRN HHN Shortness of Breath 12/23/18 11:00 12/28/18 10:59 Allopurinol (Zyloprim) 100 mg DAILY ORAL 12/24/18 09:00 01/23/19 08:59 12/24/18 09:15 Cefepime HCl 2 gm/ Dextrose 110 ml @ 220 mls/hr Q24H IV 12/23/18 20:00 12/30/18 19:59 12/23/18 20:00 Clopidogrel Bisulfate (Plavix) 75 mg DAILY ORAL 12/24/18 09:00 01/23/19 08:59 12/24/18 09:15 Dextrose (Dextrose 50%) 25 ml Q30M PRN IV Hypoglycemia 12/23/18 11:00 01/22/19 10:59 Dextrose (Dextrose 50%) 50 ml Q30M PRN IV Hypoglycemia 12/23/18 11:00 01/22/19 10:59 Heparin Sodium (Porcine) (Heparin 5000 units/ml) 5,000 units EVERY 12 HOURS SUBQ 12/23/18 21:00 01/22/19 20:59 12/24/18 09:17 Insulin Aspart (NovoLOG) BEFORE MEALS AND HS SUBQ 12/23/18 11:30 01/22/19 11:29 12/24/18 06:04 Nitroglycerin (Ntg) 0.4 mg Q5M PRN SL Prn Chest Pain 12/23/18 11:00 01/22/19 10:59 Ondansetron HCl (Zofran) 4 mg Q6H PRN IVP Nausea & Vomiting 12/23/18 11:00 01/22/19 10:59 Polyethylene Glycol (Miralax) 17 gm DAILYPRN PRN ORAL Constipation 12/23/18 11:00 01/22/19 10:59 Quetiapine Fumarate (SEROquel) 12.5 mg BID ORAL 12/23/18 18:00 01/22/19 17:59 12/24/18 09:15 Sodium Chloride 1,000 ml @ 100 mls/hr Q10H IVLG 12/24/18 10:46 01/23/19 10:45 Vancomycin HCl (Vanco rx to dose) 1 ea DAILY PRN MISC Per rx protocol 12/23/18 11:00 01/22/19 10:59 Vancomycin HCl 750 mg/Sodium Chloride 275 ml @ 183.333 mls/hr Q24H IVPB 12/24/18 09:00 12/29/18 08:59 12/24/18 09:15 Jaylin Dickson MD Dec 24, 2018 09:46
[2018-12-24] MEDS ORDERED: Heparin1,000 units/500ml Premix(Conc:2 units/ml) IV PRN (11:00)
[2018-12-24] MEDS ORDERED: Lidocaine 1% Plain 30 ml INJ PRN (11:00)
--- NOTE | 2018-12-24 11:19 | NUR ---
*-* INSURANCE *-* ALL CLINICALS AND REVIEW HAVE BEEN FAXED TO: IPA: [id number] P: [phone] F: [phone] (FAX CLINICALS)
[2018-12-24 12:00] VITALS: BP 107/68
--- NOTE | 2018-12-24 12:00 | Infectious Diseases Prog Note ---
Assessment/Plan Assessment/Plan Assessment: Sepsis- likely 2ry to UTI- r.o bacteremia -Bcx p -CXR: No definite acute process. Findings as noted -u/a wbc tnct, nit+, leuk +3; ucx >100k GNR Low grade fever x1 Leukocytosis; improving Lactic acidosis, SP Acute on chronic Encephalopathy advanced dementia PVD CVA HTN non verbal Dm2 b/l AKA dysphagia s/p [facility] resident Plan: -Continue empiric Cefepime #2 for UTI pending ucx -Continue empiric IV Vancomycin #2 for now pending Bcx -if BCx with no gram positive growth, will d.c -12/23 SP Flagyl #1 -f/u cx -Monitor CBC/CMP, temperatures -aspiration precautions -cdiff if diarrhea Thank you for this consultation. Will continue to follow along with you. Discussed with RN. Subjective Allergies: Coded Allergies: No Known Allergies (Unverified , 08/10/18) Subjective afebrile .24hrs leukocytosis improving Objective Vital Signs Last 24 Hour Vital Signs Date Time Temp Pulse Resp B/P (MAP) Pulse Ox O2 Delivery O2 Flow Rate FiO2 12/24/18 08:00 98.1 98 24 111/55 (73) 97 12/24/18 08:00 114 12/24/18 08:00 Nasal Cannula 3.0 12/24/18 04:00 Nasal Cannula 3.0 12/24/18 04:00 97.7 95 28 104/70 (81) 100 12/24/18 03:24 97 12/24/18 00:00 Nasal Cannula 3.0 12/24/18 00:00 97.5 112 26 115/72 (86) 100 12/24/18 00:00 112 12/23/18 21:43 97 Nasal Cannula 3.0 32 12/23/18 21:43 82 16 97 Nasal Cannula 3.0 32 12/23/18 20:00 3.0 12/23/18 20:00 Nasal Cannula 3.0 12/23/18 20:00 129 12/23/18 20:00 97.5 129 26 100/65 (77) 95 12/23/18 16:00 3.0 12/23/18 16:00 Nasal Cannula 3.0 12/23/18 16:00 121 12/23/18 12:07 3.0 12/23/18 12:00 Nasal Cannula 3.0 Height (Feet): 3 Height (Inches): 4.00 Weight (Pounds): 90 Objective General Appearance: alert, thin, Chronically Ill Eyes: bilateral eye PERRL ENT: dry mucus membranes Neck: limited range of motion Respiratory: lungs clear, normal breath sounds, other - tachypnea Cardiovascular #1: other - bilateral aka Gastrointestinal: normal inspection, non tender, soft Musculoskeletal: other - bilateral aka Neurologic: alert, aphasia, other - responsive Psychiatric: anxious Skin: no rash Microbiology Date/Time Source Procedure Growth Status 12/23/18 07:46 Nasal Nares MRSA Culture - Final Staphylococcus Aureus - Mrsa Complete 12/23/18 12:15 Urine,Clean Catch Urine Culture - Preliminary NO GROWTH Resulted 12/23/18 07:07 Urine,Clean Catch Urine Culture - Preliminary Gram Negative Bacillus 1 Resulted 12/23/18 07:46 Rectum Received Laboratory Tests Test 12/23/18 12:15 12/24/18 03:35 Urine Color Yellow Urine Appearance Cloudy Urine pH 7 (4.5-8.0) Urine Specific [place] 1.005 (1.005-1.035) Urine Protein 3+ (NEGATIVE) H Urine Glucose (UA) Negative (NEGATIVE) Urine Ketones 1+ (NEGATIVE) H Urine Blood 4+ (NEGATIVE) H Urine Nitrite Positive (NEGATIVE) H Urine Bilirubin Negative (NEGATIVE) Urine Urobilinogen Normal MG/DL (0.0-1.0) Urine Leukocyte Esterase 3+ (NEGATIVE) H Urine RBC 10-15 /HPF (0 - 0) H Urine WBC Tntc /HPF (0 - 0) H Urine Squamous Epithelial Cells Occasional /LPF Urine Bacteria Moderate /HPF (NONE) H Urine Eosinophils None seen (NONE SEEN) Urine Random Sodium 21 mmol/L (20-110) Urine Random Chloride 41 mmol/L (55-125) L Urine Potassium Timed 42 mmol/L (12-62) White Blood Count 18.0 K/UL (4.8-10.8) H Red Blood Count 4.85 M/UL (4.70-6.10) Hemoglobin 13.6 G/DL (14.2-18.0) L Hematocrit 44.1 % (42.0-52.0) Mean Corpuscular Volume 91 FL (80-99) Mean Corpuscular Hemoglobin 27.9 PG (27.0-31.0) Mean Corpuscular Hemoglobin Concent 30.8 G/DL (32.0-36.0) L Red Cell Distribution Width 14.9 % (11.6-14.8) H Platelet Count 243 K/UL (150-450) Mean Platelet Volume 6.8 FL (6.5-10.1) Neutrophils (%) (Auto) % (45.0-75.0) Lymphocytes (%) (Auto) % (20.0-45.0) Monocytes (%) (Auto) % (1.0-10.0) Eosinophils (%) (Auto) % (0.0-3.0) Basophils (%) (Auto) % (0.0-2.0) Differential Total Cells Counted 100 Neutrophils % (Manual) 71 % (45-75) Lymphocytes % (Manual) 21 % (20-45) Monocytes % (Manual) 8 % (1-10) Eosinophils % (Manual) 0 % (0-3) Basophils % (Manual) 0 % (0-2) Band Neutrophils 0 % (0-8) Platelet Estimate Adequate Platelet Morphology Normal Sodium Level 160 MMOL/L (136-145) H Potassium Level 3.2 MMOL/L (3.5-5.1) L Chloride Level 128 MMOL/L (98-107) H Carbon Dioxide Level 24 MMOL/L (21-32) Anion Gap 8 mmol/L (5-15) Blood Urea Nitrogen 42 mg/dL (7-18) H Creatinine 0.7 MG/DL (0.55-1.30) Estimat Glomerular Filtration Rate > 60 mL/min (>60) Glucose Level 125 MG/DL (74-106) H Calcium Level 8.7 MG/DL (8.5-10.1) Total Bilirubin 0.4 MG/DL (0.2-1.0) Aspartate Amino Transf (AST/SGOT) 106 U/L (15-37) H Alanine Aminotransferase (ALT/SGPT) 136 U/L (12-78) H Alkaline Phosphatase 94 U/L (46-116) Troponin I 0.132 ng/mL (0.000-0.056) Pro-B-Type Natriuretic Peptide 1761 pg/mL (0-125) H Total Protein 7.6 G/DL (6.4-8.2) Albumin 2.1 G/DL (3.4-5.0) L Globulin 5.5 g/dL Albumin/Globulin Ratio 0.4 (1.0-2.7) L Current Medications Medications (Trade) Dose Ordered Sig/Jennifer Route PRN Reason Start Time Stop Time Status Last Admin Dose Admin Acetaminophen (Tylenol) 650 mg Q4H PRN ORAL Mild Pain/Temp > 100.5 12/23/18 23:00 01/22/19 10:59 12/23/18 22:12 Albuterol/ Ipratropium (Albuterol/ Ipratropium) 3 ml Q4H PRN HHN Shortness of Breath 12/23/18 11:00 12/28/18 10:59 Allopurinol (Zyloprim) 100 mg DAILY ORAL 12/24/18 09:00 01/23/19 08:59 12/24/18 09:15 Cefepime HCl 2 gm/ Dextrose 110 ml @ 220 mls/hr Q24H IV 12/23/18 20:00 12/30/18 19:59 12/23/18 20:00 Chlorhexidine Gluconate (Rani-Hex 2%) 1 applic DAILY@2000 TOPIC 12/24/18 20:00 01/23/19 19:59 Clopidogrel Bisulfate (Plavix) 75 mg DAILY ORAL 12/24/18 09:00 01/23/19 08:59 12/24/18 09:15 Dextrose 1,000 ml @ 150 mls/hr Q6H40M IV 12/24/18 10:00 01/23/19 09:59 Dextrose (Dextrose 50%) 25 ml Q30M PRN IV Hypoglycemia 12/23/18 11:00 01/22/19 10:59 Dextrose (Dextrose 50%) 50 ml Q30M PRN IV Hypoglycemia 12/23/18 11:00 01/22/19 10:59 Heparin Sodium (Porcine) (Heparin 5000 units/ml) 5,000 units EVERY 12 HOURS SUBQ 12/23/18 21:00 01/22/19 20:59 12/24/18 09:17 Heparin Sodium/ Sodium Chloride (Heparin 1000 units/500ml Premix) 1,000 unit ONCE PRN IV picc line placement 12/24/18 11:00 12/26/18 10:59 Insulin Aspart (NovoLOG) BEFORE MEALS AND HS SUBQ 12/23/18 11:30 01/22/19 11:29 12/24/18 06:04 Lidocaine HCl (Xylocaine 1% 30ml) 30 ml ONCE PRN INJ picc line placement 12/24/18 11:00 12/26/18 10:59 Nitroglycerin (Ntg) 0.4 mg Q5M PRN SL Prn Chest Pain 12/23/18 11:00 01/22/19 10:59 Ondansetron HCl (Zofran) 4 mg Q6H PRN IVP Nausea & Vomiting 12/23/18 11:00 01/22/19 10:59 Polyethylene Glycol (Miralax) 17 gm DAILYPRN PRN ORAL Constipation 12/23/18 11:00 01/22/19 10:59 Potassium Chloride (K-Dur) 40 meq Q4H ORAL 12/24/18 10:00 12/24/18 14:01 Quetiapine Fumarate (SEROquel) 12.5 mg BID ORAL 12/23/18 18:00 01/22/19 17:59 12/24/18 09:15 Sodium Chloride 1,000 ml @ 100 mls/hr Q10H IVLG 12/24/18 10:46 01/23/19 10:45 Vancomycin HCl (Vanco rx to dose) 1 ea DAILY PRN MISC Per rx protocol 12/23/18 11:00 01/22/19 10:59 Vancomycin HCl 750 mg/Sodium Chloride 275 ml @ 183.333 mls/hr Q24H IVPB 12/24/18 09:00 12/29/18 08:59 12/24/18 09:15 Deepti Connolly M.D. Dec 24, 2018 12:00
--- NOTE | 2018-12-24 12:11 | NUR ---
RD ASSESSMENT & RECOMMENDATIONS SEE CARE ACTIVITY FOR COMPLETE ASSESSMENT DAILY ESTIMATED NEEDS: Needs based on Wounds, sepsis/ 54.2kg 25-30 kcals/kg 7951-1890 total kcals 1.25-2 g protein/kg 67-108 g total protein 25-30 mL/kg 9113-7763 total fluid mLs NUTRITION DIAGNOSIS: * Swallowing difficulty R/T dysphagia as evidenced by pt is PEG dep. * Increased kcal/prot needs R/T wound healing as evidenced by admitted w/ sacral and lt stump wounds, pending evaluation. * Altered nutrition related lab values R/T dehydration, clinical condition as evidenced by elev Na (160), elev BUN (42). CURRENT TF:Glucerna 1.5 @ 50ml/hr x 24 hrs ENTERAL NUTRITION RECOMMENDATIONS: Glucerna 1.2 @ 55ml/hr x 24 hrs to provide 1320ml, 1584kcal, 79g prot, 1062ml free water * Rec TF CHANGE Glucerna 1.2 for increased free water * Initiate Glucerna 1.2 @ 35ml/hr x 6 hrs, advance 10ml q 4-6 hrs as tolerated to goal rate * HOB over 30 degrees/ water flush per MD ADDITIONAL RECOMMENDATIONS: 1) CALIBRATED bedscale wt, weekly wt monitoring 2) Wound healing: add Vit C 500mg QD : add Wally 1pkt BID 3) Monitor lytes, replete as needed (low K, phos, mag) . .
--- NOTE | 2018-12-24 12:12 | NUR ---
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 97.5 HR 112 RR 28 B/P 111/55 3L NC O2 SAT @ 98% WBC 18.0 NA 160 K 3.2 CHL 128 BUN 42 TROP 0.132 BNP 1761 AST 180 ALT 156 IS: IVF NS @ 100ML/HR VANCO IV CEFEPIME IV K-DUR HEPARIN SUBC. ALB HHN STEP DOWN STATUS
--- NOTE | 2018-12-24 12:15 | NUR ---
[employer] NOTES SPOKE WITH ROQUE FROM [email or web address], TELEPHONE REVIEW GIVEN. ROQUE [phone] [phone] (P) (F) [phone]
--- NOTE | 2018-12-24 12:34 | Consultation ---
History of Present Illness General Date patient seen: Dec 24, 2018 Chief Complaint: Dyspnea/Respdistress Present Illness HPI This is a 68-year-old male well-known to me from prior admissions who was covering a senior living but was identified to have respiratory distress, shortness of breath, decreased level consciousness as compared to prior and was transferred to [facility] for further evaluation work-up. On arrival patient was identified a significant leukocytosis, abnormal LFTs, abnormal labs. Patient was admitted for further work-up care and management. On admission continues to have multiple wounds requiring care and management. Patient seen, patient [place], chart reviewed. Allergies: Coded Allergies: No Known Allergies (Unverified , 08/10/18) Medication History Scheduled Allopurinol* (Allopurinol*), 100 MG GT DAILY Amino Acids/Protein Hydrolys (Pro-Stat Liquid), 30 ML ORAL TWICE A DAY, ( Reported) Aspirin* (Aspir 81*), 81 MG ORAL DAILY, (Reported) Atorvastatin Calcium* (Lipitor*), 80 MG ORAL BEDTIME, (Reported) Ceftriaxone Na/Dextrose,Iso (Ceftriaxone 1 Gm Piggyback), 1 GM IV DAILY Cephalexin* (Keflex*), 500 MG ORAL EVERY 12 HOURS Clopidogrel Bisulfate* (Plavix*), 75 MG ORAL DAILY, (Reported) Docusate Sodium* (Docusate Sodium*), 100 MG ORAL TWICE A DAY, (Reported) Magnesium Hydroxide* (Milk Of Magnesia*), 30 ML ORAL DAILY, (Reported) Quetiapine Fumarate* (Seroquel*), 12.5 MG ORAL BID Trimethoprim/Sulfamethoxazole (Bactrim 400-80 mg Tablet), 1 TAB ORAL TWICE A DAY Scheduled PRN Acetaminophen* (Acetaminophen 325MG Tablet*), 500 MG ORAL Q4H PRN for Moderate Pain (Pain Scale 4-6), (Reported) Melatonin (Melatonin), 4 MG ORAL BEDTIME PRN for Insomnia, (Reported) Tramadol Hcl* (Ultram*), 50 MG ORAL Q6H PRN for For Pain, (Reported) Miscellaneous Medications Megestrol Acetate (Megestrol Acetate), 40 MG PO, (Reported) Vit C/Ascorb Sod/Multivit-Min (Emergen-C 500 mg Chewable Tab), 500 MG PO, ( Reported) Patient History Limited by: medical condition History Provided By: Medical Record, PMD Healthcare decision maker Resuscitation status Full Code Advanced Directive on File Past Medical/Surgical History Past Medical/Surgical History: (1) Acute encephalopathy (2) Urinary tract infection (3) Encephalopathy (4) Severe sepsis (5) CVA (cerebral vascular accident) (6) Feeding by G-tube (7) Alzheimer's dementia (8) Hypernatremia (9) ATN (acute tubular necrosis) (10) PVD (peripheral vascular disease) (11) Dehydration (12) Hypernatremia (13) Iron deficiency anemia (14) Decubitus skin ulcer (15) Renal failure (ARF), acute on chronic (16) Sepsis (17) UTI (urinary tract infection) Review of Systems ROS Narrative Cannot obtain given patient's current medical condition Physical Exam General Appearance: no apparent distress Lines, tubes and drains: peripheral HEENT: mucous membranes moist Neck: normal inspection Respiratory/Chest: no respiratory distress, decreased breath sounds Cardiovascular/Chest: regular rhythm Abdomen: soft, no organomegaly, no mass, other Extremities: non-tender Skin Exam: warm/dry Neurologic: other Last 24 Hour Vital Signs Date Time Temp Pulse Resp B/P (MAP) Pulse Ox O2 Delivery O2 Flow Rate FiO2 12/24/18 12:00 Nasal Cannula 3.0 12/24/18 12:00 97.5 94 22 107/68 (81) 98 12/24/18 08:00 98.1 98 24 111/55 (73) 97 12/24/18 08:00 114 12/24/18 08:00 Nasal Cannula 3.0 12/24/18 04:00 Nasal Cannula 3.0 12/24/18 04:00 97.7 95 28 104/70 (81) 100 12/24/18 03:24 97 12/24/18 00:00 Nasal Cannula 3.0 12/24/18 00:00 97.5 112 26 115/72 (86) 100 12/24/18 00:00 112 12/23/18 21:43 97 Nasal Cannula 3.0 32 12/23/18 21:43 82 16 97 Nasal Cannula 3.0 32 12/23/18 20:00 3.0 12/23/18 20:00 Nasal Cannula 3.0 12/23/18 20:00 129 12/23/18 20:00 97.5 129 26 100/65 (77) 95 12/23/18 16:00 3.0 12/23/18 16:00 Nasal Cannula 3.0 12/23/18 16:00 121 Intake and Output 12/23/18 12/24/18 19:00 07:00 Intake Total 1350 ml 860 ml Output Total 400 ml 500 ml Balance 950 ml 360 ml Intake Free Water 60 ml 150 ml IV Total 1110 ml 220 ml Tube Feeding 180 ml 490 ml Output Urine Total 400 ml 500 ml # Voids 1 # Bowel Movements 1 Laboratory Tests Test 12/24/18 03:35 White Blood Count 18.0 K/UL (4.8-10.8) H Red Blood Count 4.85 M/UL (4.70-6.10) Hemoglobin 13.6 G/DL (14.2-18.0) L Hematocrit 44.1 % (42.0-52.0) Mean Corpuscular Volume 91 FL (80-99) Mean Corpuscular Hemoglobin 27.9 PG (27.0-31.0) Mean Corpuscular Hemoglobin Concent 30.8 G/DL (32.0-36.0) L Red Cell Distribution Width 14.9 % (11.6-14.8) H Platelet Count 243 K/UL (150-450) Mean Platelet Volume 6.8 FL (6.5-10.1) Neutrophils (%) (Auto) % (45.0-75.0) Lymphocytes (%) (Auto) % (20.0-45.0) Monocytes (%) (Auto) % (1.0-10.0) Eosinophils (%) (Auto) % (0.0-3.0) Basophils (%) (Auto) % (0.0-2.0) Differential Total Cells Counted 100 Neutrophils % (Manual) 71 % (45-75) Lymphocytes % (Manual) 21 % (20-45) Monocytes % (Manual) 8 % (1-10) Eosinophils % (Manual) 0 % (0-3) Basophils % (Manual) 0 % (0-2) Band Neutrophils 0 % (0-8) Platelet Estimate Adequate Platelet Morphology Normal Sodium Level 160 MMOL/L (136-145) H Potassium Level 3.2 MMOL/L (3.5-5.1) L Chloride Level 128 MMOL/L (98-107) H Carbon Dioxide Level 24 MMOL/L (21-32) Anion Gap 8 mmol/L (5-15) Blood Urea Nitrogen 42 mg/dL (7-18) H Creatinine 0.7 MG/DL (0.55-1.30) Estimat Glomerular Filtration Rate > 60 mL/min (>60) Glucose Level 125 MG/DL (74-106) H Calcium Level 8.7 MG/DL (8.5-10.1) Total Bilirubin 0.4 MG/DL (0.2-1.0) Aspartate Amino Transf (AST/SGOT) 106 U/L (15-37) H Alanine Aminotransferase (ALT/SGPT) 136 U/L (12-78) H Alkaline Phosphatase 94 U/L (46-116) Troponin I 0.132 ng/mL (0.000-0.056) Pro-B-Type Natriuretic Peptide 1761 pg/mL (0-125) H Total Protein 7.6 G/DL (6.4-8.2) Albumin 2.1 G/DL (3.4-5.0) L Globulin 5.5 g/dL Albumin/Globulin Ratio 0.4 (1.0-2.7) L Height (Feet): 3 Height (Inches): 4.00 Weight (Pounds): 90 Medications Current Medications Medications (Trade) Dose Ordered Sig/Jennifer Route PRN Reason Start Time Stop Time Status Last Admin Dose Admin Acetaminophen (Tylenol) 650 mg Q4H PRN ORAL Mild Pain/Temp > 100.5 12/23/18 23:00 01/22/19 10:59 12/23/18 22:12 Albuterol/ Ipratropium (Albuterol/ Ipratropium) 3 ml Q4H PRN HHN Shortness of Breath 12/23/18 11:00 12/28/18 10:59 Allopurinol (Zyloprim) 100 mg DAILY ORAL 12/24/18 09:00 01/23/19 08:59 12/24/18 09:15 Cefepime HCl 2 gm/ Dextrose 110 ml @ 220 mls/hr Q24H IV 12/23/18 20:00 12/30/18 19:59 12/23/18 20:00 Chlorhexidine Gluconate (Rani-Hex 2%) 1 applic DAILY@2000 TOPIC 12/24/18 20:00 01/23/19 19:59 Clopidogrel Bisulfate (Plavix) 75 mg DAILY ORAL 12/24/18 09:00 01/23/19 08:59 12/24/18 09:15 Dextrose 1,000 ml @ 150 mls/hr Q6H40M IV 12/24/18 10:00 01/23/19 09:59 Dextrose (Dextrose 50%) 25 ml Q30M PRN IV Hypoglycemia 12/23/18 11:00 01/22/19 10:59 Dextrose (Dextrose 50%) 50 ml Q30M PRN IV Hypoglycemia 12/23/18 11:00 01/22/19 10:59 Heparin Sodium (Porcine) (Heparin 5000 units/ml) 5,000 units EVERY 12 HOURS SUBQ 12/23/18 21:00 01/22/19 20:59 12/24/18 09:17 Heparin Sodium/ Sodium Chloride (Heparin 1000 units/500ml Premix) 1,000 unit ONCE PRN IV picc line placement 12/24/18 11:00 12/26/18 10:59 Insulin Aspart (NovoLOG) BEFORE MEALS AND HS SUBQ 12/23/18 11:30 01/22/19 11:29 12/24/18 12:21 Lidocaine HCl (Xylocaine 1% 30ml) 30 ml ONCE PRN INJ picc line placement 12/24/18 11:00 12/26/18 10:59 Nitroglycerin (Ntg) 0.4 mg Q5M PRN SL Prn Chest Pain 12/23/18 11:00 01/22/19 10:59 Ondansetron HCl (Zofran) 4 mg Q6H PRN IVP Nausea & Vomiting 12/23/18 11:00 01/22/19 10:59 Polyethylene Glycol (Miralax) 17 gm DAILYPRN PRN ORAL Constipation 12/23/18 11:00 01/22/19 10:59 Potassium Chloride (K-Dur) 40 meq Q4H ORAL 12/24/18 10:00 12/24/18 14:01 12/24/18 12:02 Quetiapine Fumarate (SEROquel) 12.5 mg BID ORAL 12/23/18 18:00 01/22/19 17:59 12/24/18 09:15 Sodium Chloride 1,000 ml @ 100 mls/hr Q10H IVLG 12/24/18 10:46 01/23/19 10:45 Vancomycin HCl (Vanco rx to dose) 1 ea DAILY PRN MISC Per rx protocol 12/23/18 11:00 01/22/19 10:59 Vancomycin HCl 750 mg/Sodium Chloride 275 ml @ 183.333 mls/hr Q24H IVPB 12/24/18 09:00 12/29/18 08:59 12/24/18 09:15 Assessment/Plan Problem List: (1) Acute encephalopathy ICD Codes: G93.40 - Encephalopathy, unspecified SNOMED: 89391166, 422169806 (2) Urinary tract infection ICD Codes: N39.0 - Urinary tract infection, site not specified SNOMED: 15863699 (3) Encephalopathy ICD Codes: G93.40 - Encephalopathy, unspecified; R65.20 - Severe sepsis without septic shock SNOMED: 91587720 (4) Severe sepsis ICD Codes: A41.9 - Sepsis, unspecified organism; R65.20 - Severe sepsis without septic shock SNOMED: 75228796 (5) CVA (cerebral vascular accident) ICD Codes: I63.9 - Cerebral infarction, unspecified SNOMED: 695026239 (6) Feeding by G-tube Assessment & Plan: DAILY ESTIMATED NEEDS: Needs based on Wounds, sepsis/ 54.2kg 25-30 kcals/kg 6911-6044 total kcals 1.25-2 g protein/kg 67-108 g total protein 25-30 mL/kg 0014-4113 total fluid mLs NUTRITION DIAGNOSIS: * Swallowing difficulty R/T dysphagia as evidenced by pt is PEG dep. * Increased kcal/prot needs R/T wound healing as evidenced by admitted w/ sacral and lt stump wounds, pending evaluation. * Altered nutrition related lab values R/T dehydration, clinical condition as evidenced by elev Na (160), elev BUN (42). CURRENT TF:Glucerna 1.5 @ 50ml/hr x 24 hrs ENTERAL NUTRITION RECOMMENDATIONS: Glucerna 1.2 @ 55ml/hr x 24 hrs to provide 1320ml, 1584kcal, 79g prot, 1062ml free water * Rec TF CHANGE Glucerna 1.2 for increased free water * Initiate Glucerna 1.2 @ 35ml/hr x 6 hrs, advance 10ml q 4-6 hrs as tolerated to goal rate * HOB over 30 degrees/ water flush per MD ADDITIONAL RECOMMENDATIONS: 1) CALIBRATED bedscale wt, weekly wt monitoring 2) Wound healing: add Vit C 500mg QD : add Wally 1pkt BID 3) Monitor lytes, replete as needed (low K, phos, mag) ICD Codes: Z93.1 - Gastrostomy status SNOMED: 888126202, 517934646, 049087877 (7) Alzheimer's dementia ICD Codes: G30.9 - Alzheimer's disease, unspecified; F02.80 - Dementia in other diseases classified elsewhere without behavioral disturbance SNOMED: 84561254 (8) Hypernatremia ICD Codes: E87.0 - Hyperosmolality and hypernatremia (9) ATN (acute tubular necrosis) ICD Codes: N17.0 - Acute kidney failure with tubular necrosis SNOMED: 61572081 (10) PVD (peripheral vascular disease) ICD Codes: I73.9 - Peripheral vascular disease, unspecified SNOMED: 694389748 (11) Dehydration ICD Codes: E86.0 - Dehydration SNOMED: 52176995 (12) Hypernatremia ICD Codes: E87.0 - Hyperosmolality and hypernatremia (13) Iron deficiency anemia ICD Codes: D50.9 - Iron deficiency anemia, unspecified SNOMED: 49816258 (14) Decubitus skin ulcer Assessment & Plan: Pt presented on admission with Bilat AKA. Stable dry eschar without erythema or elevation in skin temp noted to Base of L AKA stump. (L)1cm x (W)0.8cm. Unstageable pressure injury noted to sacrum. Base of wound is necrotic , partially opened with surrounding maroon borders that are fluctuant. Pt exhibited agitation when area minimally palpated. (L)4cm x (W)5.5cm. Non- blanchable erythema periwound. Scrotal erythema noted. Tx.Plan: Cleanse Sacrum with Saline. Apply Therahoney. Apply Triad paste periwound. Cover with Optifoam drsg daily and prn. Cleanse wound L AKA with Saline. Apply Therahoney. Apply Cavilon Skin Barrier periwound. Cover with Optifoam every 3 days and prn. Apply Moisture Barrier paste to scrotal and groin areas with each incontinence care. APM/KEZIA Mattress overlay. Reposition at least every 2hours or as tolerated. ICD Codes: L89.90 - Pressure ulcer of unspecified site, unspecified stage SNOMED: 528709482 (15) Renal failure (ARF), acute on chronic ICD Codes: N17.9 - Acute kidney failure, unspecified; N18.9 - Chronic kidney disease, unspecified SNOMED: 593192642 (16) Sepsis ICD Codes: A41.9 - Sepsis, unspecified organism SNOMED: 35376488 (17) UTI (urinary tract infection) ICD Codes: N39.0 - Urinary tract infection, site not specified SNOMED: 33642941 (18) Abnormal LFTs Assessment & Plan: Patient presents with sepsis, leukocytosis, tachycardia, change in mental status, abnormal LFTs, abnormal labs. Ultrasound of abdomen ordered Trend labs IV fluids IV antibiotics as per infectious disease We will follow with recommendations as work-up continues ICD Codes: R94.5 - Abnormal results of liver function studies SNOMED: 715540088 Emiliano Martinez Dec 24, 2018 12:34
--- NOTE | 2018-12-24 13:28 | NUR ---
NURSE NOTES:WOUND CARE NOTES:Pt presented on admission with Bilat AKA. Stable dry eschar without erythema or elevation in skin temp noted to Base of L AKA stump. (L)1cm x (W)0.8cm. Unstageable pressure injury noted to sacrum. Base of wound is necrotic ,partially opened with surrounding maroon borders that are fluctuant. Pt exhibited agitation when area minimally palpated. (L)4cm x (W)5.5cm. Non-blanchable erythema periwound. Scrotal erythema noted. Tx.Plan: Cleanse Sacrum with Saline. Apply Therahoney. Apply Triad paste periwound. Cover with Optifoam drsg daily and prn. Cleanse wound L AKA with Saline. Apply Therahoney. Apply Cavilon Skin Barrier periwound. Cover with Optifoam every 3 days and prn. Apply Moisture Barrier paste to scrotal and groin areas with each incontinence care. APM/KEZIA Mattress overlay. Reposition at least every 2hours or as tolerated.
--- NOTE | 2018-12-24 13:47 | General Progress Note ---
Progress Note Progress Note pt needs lots of iv abx and iv fluids. Doesn't have any iv access. He doesn't have anybody to sign for his consents. Jaylin Dickson MD Dec 24, 2018 13:47
--- NOTE | 2018-12-24 15:00 | NUR ---
NURSE NOTES: PT HAVING PICC-LINE INSERTION BY DR CARMELINA MARTINO.PT TOLERATING WELL PROCEDURE.WILL CONT TO MONITOR.
[2018-12-24] MEDS ORDERED: Tubing IV Secondary IV ONE (15:01)
--- NOTE | 2018-12-24 15:55 | Diagnostic Imaging Report ---
Indication: termination clerk venous access Findings: After the indications, procedure, risks, complications, and alternatives of the procedure were explained, written informed consent was obtained. The left upper extremity was prepped with alcohol. All elements of maximal sterile barrier technique were followed including usage of a cap, mask, sterile gown, sterile gloves, hand hygiene and a large sterile sheet. Sonographic evaluation of the upper extremity was performed demonstrating a patent and compressible basilic vein. Access was obtained under real-time ultrasound guidance (with utilization of sterile gel and sterile probe cover) and digital image was saved and archived. An .018 wire was introduced. Needle exchanged for a 5 [place]ian peel-away sheath. Measurements were obtained. A 5 [place]ian dual-lumen Power PICC line catheter was cut to 40 cm and introduced over the wire. Peel-away sheath and wire were removed.Catheter was secured to the skin using 2-0 Prolene suture. Both ports aspirate and flush easily. Post procedure chest x-ray demonstrates good position of the PICC line catheter within the SVC. Impression: Successful placement of an upper extremity PICC line catheter
[2018-12-24 16:00] VITALS: BP 103/65
--- NOTE | 2018-12-24 17:07 | Internal Med Progress Note ---
Subjective Date of Service: Dec 24, 2018 Physician Name Darrick Stout Attending Physician Yannick Marshall MD Current Medications Medications (Trade) Dose Ordered Sig/Jennifer Route PRN Reason Start Time Stop Time Status Last Admin Dose Admin Acetaminophen (Tylenol) 650 mg Q4H PRN ORAL Mild Pain/Temp > 100.5 12/23/18 23:00 01/22/19 10:59 12/23/18 22:12 Albuterol/ Ipratropium (Albuterol/ Ipratropium) 3 ml Q4H PRN HHN Shortness of Breath 12/23/18 11:00 12/28/18 10:59 Allopurinol (Zyloprim) 100 mg DAILY ORAL 12/24/18 09:00 01/23/19 08:59 12/24/18 09:15 Ascorbic Acid (Vitamin C) 500 mg DAILY ORAL 12/25/18 09:00 01/24/19 08:59 Cefepime HCl 2 gm/ Dextrose 110 ml @ 220 mls/hr Q24H IV 12/23/18 20:00 12/30/18 19:59 12/23/18 20:00 Chlorhexidine Gluconate (Rani-Hex 2%) 1 applic DAILY@2000 TOPIC 12/24/18 20:00 01/23/19 19:59 Clopidogrel Bisulfate (Plavix) 75 mg DAILY ORAL 12/24/18 09:00 01/23/19 08:59 12/24/18 09:15 Dextrose 1,000 ml @ 150 mls/hr Q6H40M IV 12/24/18 10:00 01/23/19 09:59 Dextrose (Dextrose 50%) 25 ml Q30M PRN IV Hypoglycemia 12/23/18 11:00 01/22/19 10:59 Dextrose (Dextrose 50%) 50 ml Q30M PRN IV Hypoglycemia 12/23/18 11:00 01/22/19 10:59 Heparin Sodium (Porcine) (Heparin 5000 units/ml) 5,000 units EVERY 12 HOURS SUBQ 12/23/18 21:00 01/22/19 20:59 12/24/18 09:17 Heparin Sodium/ Sodium Chloride (Heparin 1000 units/500ml Premix) 1,000 unit ONCE PRN IV picc line placement 12/24/18 11:00 12/26/18 10:59 Insulin Aspart (NovoLOG) BEFORE MEALS AND HS SUBQ 12/23/18 11:30 01/22/19 11:29 12/24/18 12:21 Lidocaine HCl (Xylocaine 1% 30ml) 30 ml ONCE PRN INJ picc line placement 12/24/18 11:00 12/26/18 10:59 Nitroglycerin (Ntg) 0.4 mg Q5M PRN SL Prn Chest Pain 12/23/18 11:00 01/22/19 10:59 Ondansetron HCl (Zofran) 4 mg Q6H PRN IVP Nausea & Vomiting 12/23/18 11:00 01/22/19 10:59 Polyethylene Glycol (Miralax) 17 gm DAILYPRN PRN ORAL Constipation 12/23/18 11:00 01/22/19 10:59 Quetiapine Fumarate (SEROquel) 12.5 mg BID ORAL 12/23/18 18:00 01/22/19 17:59 12/24/18 09:15 Sodium Chloride 1,000 ml @ 100 mls/hr Q10H IVLG 12/24/18 10:46 01/23/19 10:45 Vancomycin HCl (Vanco rx to dose) 1 ea DAILY PRN MISC Per rx protocol 12/23/18 11:00 01/22/19 10:59 Vancomycin HCl 750 mg/Sodium Chloride 275 ml @ 183.333 mls/hr Q24H IVPB 12/24/18 09:00 12/29/18 08:59 12/24/18 09:15 Allergies: Coded Allergies: No Known Allergies (Unverified , 08/10/18) ROS Limited/Unobtainable: Yes Subjective 68 YO M admitted with shortness of breath. Now UTI. Cover for Int [facility]-DR Marshall Objective Last Vital Signs Date Time Temp Pulse Resp B/P (MAP) Pulse Ox O2 Delivery O2 Flow Rate FiO2 12/24/18 16:05 102 12/24/18 12:00 Nasal Cannula 3.0 12/24/18 12:00 97.5 22 107/68 (81) 98 12/23/18 21:43 32 Laboratory Tests Test 12/24/18 03:35 White Blood Count 18.0 K/UL (4.8-10.8) H Red Blood Count 4.85 M/UL (4.70-6.10) Hemoglobin 13.6 G/DL (14.2-18.0) L Hematocrit 44.1 % (42.0-52.0) Mean Corpuscular Volume 91 FL (80-99) Mean Corpuscular Hemoglobin 27.9 PG (27.0-31.0) Mean Corpuscular Hemoglobin Concent 30.8 G/DL (32.0-36.0) L Red Cell Distribution Width 14.9 % (11.6-14.8) H Platelet Count 243 K/UL (150-450) Mean Platelet Volume 6.8 FL (6.5-10.1) Neutrophils (%) (Auto) % (45.0-75.0) Lymphocytes (%) (Auto) % (20.0-45.0) Monocytes (%) (Auto) % (1.0-10.0) Eosinophils (%) (Auto) % (0.0-3.0) Basophils (%) (Auto) % (0.0-2.0) Differential Total Cells Counted 100 Neutrophils % (Manual) 71 % (45-75) Lymphocytes % (Manual) 21 % (20-45) Monocytes % (Manual) 8 % (1-10) Eosinophils % (Manual) 0 % (0-3) Basophils % (Manual) 0 % (0-2) Band Neutrophils 0 % (0-8) Platelet Estimate Adequate Platelet Morphology Normal Sodium Level 160 MMOL/L (136-145) H Potassium Level 3.2 MMOL/L (3.5-5.1) L Chloride Level 128 MMOL/L (98-107) H Carbon Dioxide Level 24 MMOL/L (21-32) Anion Gap 8 mmol/L (5-15) Blood Urea Nitrogen 42 mg/dL (7-18) H Creatinine 0.7 MG/DL (0.55-1.30) Estimat Glomerular Filtration Rate > 60 mL/min (>60) Glucose Level 125 MG/DL (74-106) H Calcium Level 8.7 MG/DL (8.5-10.1) Total Bilirubin 0.4 MG/DL (0.2-1.0) Aspartate Amino Transf (AST/SGOT) 106 U/L (15-37) H Alanine Aminotransferase (ALT/SGPT) 136 U/L (12-78) H Alkaline Phosphatase 94 U/L (46-116) Troponin I 0.132 ng/mL (0.000-0.056) Pro-B-Type Natriuretic Peptide 1761 pg/mL (0-125) H Total Protein 7.6 G/DL (6.4-8.2) Albumin 2.1 G/DL (3.4-5.0) L Globulin 5.5 g/dL Albumin/Globulin Ratio 0.4 (1.0-2.7) L Microbiology Date/Time Source Procedure Growth Status 12/23/18 07:46 Nasal Nares MRSA Culture - Final Staphylococcus Aureus - Mrsa Complete 12/23/18 12:15 Urine,Clean Catch Urine Culture - Preliminary NO GROWTH Resulted 12/23/18 07:07 Urine,Clean Catch Urine Culture - Preliminary Gram Negative Bacillus 1 Resulted 12/23/18 07:46 Rectum Received Intake and Output 12/23/18 12/24/18 19:00 07:00 Intake Total 1350 ml 860 ml Output Total 400 ml 500 ml Balance 950 ml 360 ml Intake Free Water 60 ml 150 ml IV Total 1110 ml 220 ml Tube Feeding 180 ml 490 ml Output Urine Total 400 ml 500 ml # Voids 1 # Bowel Movements 1 Objective PHYSICAL EXAMINATION: GENERAL: The patient is a well-developed and well-nourished slightly obese male, in no apparent distress. HEENT: Eyes, pupils are equal and responsive to light and accommodation. Extraocular movements are intact. NECK: Supple without lymphadenopathy. CHEST: Decreased breath sounds at bilateral bases. Otherwise, without wheezes or rales. CARDIOVASCULAR: Regular rhythm and rate. S1 and S2 normal without murmurs, rubs, or gallops. ABDOMINAL: Soft, nontender, and nondistended. Positive bowel sounds. No evidence of hepatosplenomegaly. Currently, no rebound or guarding noted. EXTREMITIES: Negative for clubbing, cyanosis, or edema. RECTAL/GENITAL: Not performed. NEUROLOGIC: Cranial nerves II through XII are grossly intact without focal deficits. Assessment/Plan Assessment/Plan ASSESSMENT: This is a 68-year-old male. 1. Respiratory distress. 2. Shortness of breath. 3. Leukocytosis. 4. Probable sepsis. 5. Diabetes type 2. 6. Hypertension. 7. Cerebrovascular disease. 8. Dysphagia. 9. Alzheimer's dementia. 10. Urinary tract infection=gram neg maggie TREATMENT: 1. Respiratory distress/shortness of breath. A Pulmonary consultation has been obtained with Dr. Jaylin Dickson. An initial chest x-ray is reported as no acute disease. We will follow recommendation of Pulmonary. 2. Urinary tract infection. Initial urine showed wbc too numerous to count. A urine culture is pending. The patient has been started empirically on vancomycin and cefepime. Await urine and blood cultures. 3. Probable sepsis. As above, the patient has been started on vancomycin and cefepime. Urine and blood cultures are pending. 4. Diabetes type 2. NovoLog sliding scale has been instituted. 5. Hypertension. The patient is currently hypotensive. 6. Cerebrovascular disease. Continue Plavix and aspirin as above. 7. Dysphagia. Continue tube feeds as above. 8. Alzheimer's dementia. Darrick Stout MD Dec 24, 2018 17:07
--- NOTE | 2018-12-24 19:10 | NUR ---
NURSE NOTES: Pt report received from Marcelina RN VELASQUEZ. pt appears to be obtunded, neuro moran. pt pupiles are round and reactive to light and accommodating bilaterally. pt has a cardiac rehab nurse placed, able to Show ST with BBB, however no other acute signs symptoms of acute cardiac distress noted. pt is on 3L NC and is currently saturating at 85%, no other abnormalities resp moran. will endorse to Resp Therapist to give breathing treatment. Addendum: 12/24/18 at 2254 by YONNY SHORT RN NURSE NOTES: Pt report received from Marcelina SMITH VELASQUEZ. pt appears to be obtunded, neuro moran. pt pupiles are round and reactive to light and accommodating bilaterally. pt has a cardiac rehab nurse placed, able to Show ST with BBB, however no other acute signs symptoms of acute cardiac distress noted. pt is on 3L NC and is currently saturating at 85%, no other abnormalities resp moran. will endorse to Resp Therapist to give breathing treatment. pt has foly patent and draining to gravity, pt has a L upper PICC able to flush, no abnormalities noted. bed locked and low, call light is within reach, bed rails up times 3, bed armed. will continue plan of care.
[2018-12-24] MEDS ORDERED: ZINC SULFATE220 M1 GT (19:12)
--- NOTE | 2018-12-24 19:15 | NUR ---
HAND-OFF: Report given to NURY SALVADOR.
[2018-12-24] MEDS: Dyna-Hex 2% Top Sol 2oz TOPIC SCH (19:56)
[2018-12-24] MEDS: Cefepime HCl 2 GM in D5W 110 ML IV SCH (19:56)
[2018-12-24 20:00] VITALS: BP 114/74
[2018-12-24] MEDS ORDERED: Ipratropium 0.02% Inh Soln 2.5ml UD HHN PRN (22:15)
[2018-12-25] VITALS: BP 111/68
[2018-12-25 04:00] VITALS: BP 98/62
[2018-12-25 04:40] LABS: BASOPHILS % (AUTO) 0.6 % (0.0-2.0); EOSINOPHILS % (AUTO) 0.4 % (0.0-3.0); HEMATOCRIT 39.8 % (42.0-52.0); HEMOGLOBIN 12.1 G/DL (14.2-18.0); LYMPHOCYTES % (AUTO) 34.8 % (20.0-45.0); MEAN CORPUSCULAR VOLUME 90 FL (80-99); MONOCYTES % (AUTO) 7.3 % (1.0-10.0); NEUTROPHILS % (AUTO) 56.8 % (45.0-75.0); PLATELET COUNT 194 K/UL (150-450); RED BLOOD COUNT 4.41 M/UL (4.70-6.10); RED CELL DISTRIBUTION WIDTH 15.3 % (11.6-14.8); WHITE BLOOD COUNT 10.2 K/UL (4.8-10.8)
[2018-12-25 04:50] LABS: ALANINE AMINOTRANSFERASE 117 U/L (12-78); ALBUMIN 1.8 G/DL (3.4-5.0); ALBUMIN/GLOBULIN RATIO 0.3 (1.0-2.7); ALKALINE PHOSPHATASE 88 U/L (46-116); ANION GAP 7 mmol/L (5-15); ASPARTATE AMINO TRANSFERASE 63 U/L (15-37); BILIRUBIN,TOTAL 0.3 MG/DL (0.2-1.0); BLOOD UREA NITROGEN 35 mg/dL (7-18); CALCIUM 8.8 MG/DL (8.5-10.1); CARBON DIOXIDE 24 MMOL/L (21-32); CHLORIDE 128 MMOL/L (98-107); CREATININE 0.7 MG/DL (0.55-1.30); PHOSPHORUS 1.2 MG/DL (2.5-4.9); SODIUM 158 MMOL/L (136-145)
[2018-12-25] MEDS: NovoLOG Insulin Flexpen SUBQ SCH ×4 (05:40→20:56)
--- NOTE | 2018-12-25 07:20 | NUR ---
HAND-OFF: Report given to SRIRAM SMITH pt is in stable condition.
[2018-12-25 08:00] VITALS: BP 151/77
--- NOTE | 2018-12-25 08:00 | NUR ---
NURSE NOTES: RECEIVED BED SIDE REPORT FROM NURY CLINICAL TRIAL MANAGER OF NOC SHIFT . RECEIVED PT WITH HOB ELEVATED 45 DEGREE.PT VERY CONFUSED BUT ABLE TO FALLOWS SIMPLE COMMANDS.PT TOLERATING WELL GTF ,NO RESIDUAL NOTED AT THIS TIME.PICC-LINE ON LT UA PATENT AND INTACT.FULL BODY ASSESSMENT DONE.PT REPOSITIONED Q 2HRS TO PROVIDE COMFORT AND TO PREVENT FURTHER SKIN BREAK DOWN.SX,D ORALLY LG AMT OF YELLOWISH TICK SECRETIONS NOTE.NO ACUTE DISTRESS NOTED AT THIS TIME. WILL CONT TO MONITOR.
--- NOTE | 2018-12-25 09:16 | NUR ---
SS note This SW left a message with decision maker, Donte Mcarthur ([phone]) to discuss end of life decision making; awaiting call return at this time.
[2018-12-25] MEDS: Ascorbic Acid 500mg tab ORAL SCH (10:23)
[2018-12-25] MEDS: Allopurinol 100mg Tab ORAL SCH (10:23)
--- NOTE | 2018-12-25 10:23 | Pulmonology Progress Note ---
Assessment/Plan Problems: (1) Acute encephalopathy (2) Sepsis (3) ATN (acute tubular necrosis) (4) UTI (urinary tract infection) (5) Alzheimer's dementia (6) Decubitus skin ulcer (7) CVA (cerebral vascular accident) (8) Feeding by G-tube (9) S/P AKA (above knee amputation) bilateral Assessment/Plan improving VS stable iv fluids, decrease to 75 cc/hour check K and bun Urine has GNR, f/u ID, Sensitivity are available. continue Gtube feeding Subjective ROS Limited/Unobtainable: No Constitutional: Reports: no symptoms HEENT: Repors: no symptoms Respiratory: Reports: no symptoms Allergies: Coded Allergies: No Known Allergies (Unverified , 08/10/18) Objective Last 24 Hour Vital Signs Date Time Temp Pulse Resp B/P (MAP) Pulse Ox O2 Delivery O2 Flow Rate FiO2 12/25/18 07:03 97 Room Air 21 12/25/18 07:03 93 24 97 Room Air 21 12/25/18 04:00 Nasal Cannula 3.0 12/25/18 04:00 98.4 102 24 98/62 (74) 98 12/25/18 03:53 101 12/25/18 00:00 98.6 106 24 111/68 (82) 98 12/25/18 00:00 Nasal Cannula 3.0 12/24/18 23:25 117 12/24/18 21:00 92 22 99 Venturi Mask 6.0 35 12/24/18 20:52 102 24 88 Room Air 21 12/24/18 20:51 88 Room Air 21 12/24/18 20:50 104 24 88 Room Air 21 12/24/18 20:00 Nasal Cannula 3.0 12/24/18 20:00 98.2 107 23 114/74 (87) 98 12/24/18 19:37 106 12/24/18 16:05 102 12/24/18 16:00 Nasal Cannula 3.0 12/24/18 16:00 97.7 82 23 103/65 (78) 96 12/24/18 12:00 100 12/24/18 12:00 Nasal Cannula 3.0 12/24/18 12:00 97.5 94 22 107/68 (81) 98 Intake and Output 12/24/18 12/25/18 19:00 07:00 Intake Total 1100 ml 2785 ml Output Total 501 ml 650 ml Balance 599 ml 2135 ml Intake Free Water 350 ml 200 ml IV Total 150 ml 2035 ml Tube Feeding 600 ml 550 ml Output Urine Total 500 ml 650 ml Stool Total 1 ml # Bowel Movements 3 General Appearance: cachetic HEENT: normocephalic, atraumatic Respiratory/Chest: chest wall non-tender, lungs clear Cardiovascular: normal peripheral pulses, normal rate Abdomen: soft, non tender, no organomegaly Genitourinary: normal external genitalia Skin: no rash Microbiology Date/Time Source Procedure Growth Status 12/23/18 07:01 Blood Blood Culture - Preliminary NO GROWTH AFTER 24 HOURS Resulted 12/23/18 06:40 Blood Blood Culture - Preliminary NO GROWTH AFTER 24 HOURS Resulted 12/23/18 07:46 Nasal Nares MRSA Culture - Final Staphylococcus Aureus - Mrsa Complete 12/23/18 12:15 Urine,Clean Catch Urine Culture - Preliminary Gram Negative Bacillus 1 Resulted 12/23/18 07:07 Urine,Clean Catch Urine Culture - Final Proteus Mirabilis Complete 12/23/18 07:46 Rectum VRE Culture - Final NO VANCOMYCIN RESISTANT ENTEROCOCCUS ... Complete 12/23/18 07:46 Rectum - Final NO CARBAPENEM-RESISTANT ENTEROBACTERI... Complete Laboratory Tests 12/25/18 04:00: White Blood Count 10.2, Red Blood Count 4.41L, Hemoglobin 12.1L, Hematocrit 39.8L, Mean Corpuscular Volume 90, Mean Corpuscular Hemoglobin 27.5, Mean Corpuscular Hemoglobin Concent 30.5L, Red Cell Distribution Width 15.3H, Platelet Count 194, Mean Platelet Volume 7.2, Neutrophils (%) (Auto) 56.8, Lymphocytes (%) (Auto) 34.8, Monocytes (%) (Auto) 7.3, Eosinophils (%) (Auto) 0.4, Basophils (%) (Auto) 0.6, Erythrocyte Sedimentation Rate 100H, Sodium Level 158H, Potassium Level 4.0, Chloride Level 128H, Carbon Dioxide Level 24, Anion Gap 7, Blood Urea Nitrogen 35H, Creatinine 0.7, Estimat Glomerular Filtration Rate > 60, Glucose Level 126H, Calcium Level 8.8, Phosphorus Level 1.2L, Magnesium Level 2.4, Total Bilirubin 0.3, Aspartate Amino Transf (AST/SGOT ) 63H, Alanine Aminotransferase (ALT/SGPT) 117H, Alkaline Phosphatase 88, C- Reactive Protein, Quantitative 9.9H, Total Protein 7.6, Albumin 1.8L, Globulin 5.8, Albumin/Globulin Ratio 0.3L Current Medications Medications (Trade) Dose Ordered Sig/Jennifer Route PRN Reason Start Time Stop Time Status Last Admin Dose Admin Acetaminophen (Tylenol) 650 mg Q4H PRN ORAL Mild Pain/Temp > 100.5 12/23/18 23:00 01/22/19 10:59 12/23/18 22:12 Allopurinol (Zyloprim) 100 mg DAILY ORAL 12/24/18 09:00 01/23/19 08:59 12/24/18 09:15 Ascorbic Acid (Vitamin C) 500 mg DAILY ORAL 12/25/18 09:00 01/24/19 08:59 Cefepime HCl 2 gm/ Dextrose 110 ml @ 220 mls/hr Q24H IV 12/23/18 20:00 12/30/18 19:59 12/24/18 19:56 Chlorhexidine Gluconate (Rani-Hex 2%) 1 applic DAILY@2000 TOPIC 12/24/18 20:00 01/23/19 19:59 12/24/18 19:56 Clopidogrel Bisulfate (Plavix) 75 mg DAILY ORAL 12/24/18 09:00 01/23/19 08:59 12/24/18 09:15 Dextrose 1,000 ml @ 150 mls/hr Q6H40M IV 12/24/18 10:00 01/23/19 09:59 12/25/18 05:38 Dextrose (Dextrose 50%) 25 ml Q30M PRN IV Hypoglycemia 12/23/18 11:00 01/22/19 10:59 Dextrose (Dextrose 50%) 50 ml Q30M PRN IV Hypoglycemia 12/23/18 11:00 01/22/19 10:59 Heparin Sodium (Porcine) (Heparin 5000 units/ml) 5,000 units EVERY 12 HOURS SUBQ 12/23/18 21:00 01/22/19 20:59 12/24/18 20:11 Heparin Sodium/ Sodium Chloride (Heparin 1000 units/500ml Premix) 1,000 unit ONCE PRN IV picc line placement 12/24/18 11:00 12/26/18 10:59 Insulin Aspart (NovoLOG) BEFORE MEALS AND HS SUBQ 12/23/18 11:30 01/22/19 11:29 12/25/18 05:40 Ipratropium [place] (Atrovent) 500 mcg Q4H PRN HHN Shortness of Breath 12/24/18 22:15 12/29/18 22:14 Lidocaine HCl (Xylocaine 1% 30ml) 30 ml ONCE PRN INJ picc line placement 12/24/18 11:00 12/26/18 10:59 Nitroglycerin (Ntg) 0.4 mg Q5M PRN SL Prn Chest Pain 12/23/18 11:00 01/22/19 10:59 Ondansetron HCl (Zofran) 4 mg Q6H PRN IVP Nausea & Vomiting 12/23/18 11:00 01/22/19 10:59 Polyethylene Glycol (Miralax) 17 gm DAILYPRN PRN ORAL Constipation 12/23/18 11:00 01/22/19 10:59 Quetiapine Fumarate (SEROquel) 12.5 mg BID ORAL 12/23/18 18:00 01/22/19 17:59 12/24/18 17:50 Jaylin Dickson MD Dec 25, 2018 10:23
[2018-12-25] MEDS: Heparin 5000 units/ml inj SUBQ SCH ×2 (10:25→20:55)
--- NOTE | 2018-12-25 10:55 | Infectious Diseases Prog Note ---
Assessment/Plan Assessment/Plan Assessment: Sepsis- likely 2ry to UTI- r.o bacteremia -Bcx NTD -CXR: No definite acute process. Findings as noted -u/a wbc tnct, nit+, leuk +3; ucx >100k P. mirabilis (S Ceftriaxone, Ertapenem , Zosyn) Low grade fever x1 Leukocytosis; SP Lactic acidosis, SP Acute on chronic Encephalopathy advanced dementia PVD CVA HTN non verbal Dm2 b/l AKA dysphagia s/p [facility] resident Plan: -Switch empiric Cefepime #08/01 to Ceftriaxone for UTI -D/c empiric IV Vancomycin # -12/23 SP Flagyl #1 -f/u cx -Monitor CBC/CMP, temperatures -aspiration precautions -cdiff if diarrhea Thank you for this consultation. Will continue to follow along with you. Discussed with RN. Subjective Allergies: Coded Allergies: No Known Allergies (Unverified , 08/10/18) Subjective afebrile >48hrs leukocytosis resolved Bcx NTD Objective Vital Signs Last 24 Hour Vital Signs Date Time Temp Pulse Resp B/P (MAP) Pulse Ox O2 Delivery O2 Flow Rate FiO2 12/25/18 07:03 97 Room Air 21 12/25/18 07:03 93 24 97 Room Air 21 12/25/18 04:00 Nasal Cannula 3.0 12/25/18 04:00 98.4 102 24 98/62 (74) 98 12/25/18 03:53 101 12/25/18 00:00 98.6 106 24 111/68 (82) 98 12/25/18 00:00 Nasal Cannula 3.0 12/24/18 23:25 117 12/24/18 21:00 92 22 99 Venturi Mask 6.0 35 12/24/18 20:52 102 24 88 Room Air 21 12/24/18 20:51 88 Room Air 21 12/24/18 20:50 104 24 88 Room Air 21 12/24/18 20:00 Nasal Cannula 3.0 12/24/18 20:00 98.2 107 23 114/74 (87) 98 12/24/18 19:37 106 12/24/18 16:05 102 12/24/18 16:00 Nasal Cannula 3.0 12/24/18 16:00 97.7 82 23 103/65 (78) 96 12/24/18 12:00 100 7/30/19 12:00 Nasal Cannula 3.0 12/24/18 12:00 97.5 94 22 107/68 (81) 98 Height (Feet): 3 Height (Inches): 4.00 Weight (Pounds): 83 Objective General Appearance: alert, thin, Chronically Ill Eyes: bilateral eye PERRL ENT: dry mucus membranes Neck: limited range of motion Respiratory: lungs clear, normal breath sounds, other - tachypnea Cardiovascular #1: other - bilateral aka Gastrointestinal: normal inspection, non tender, soft Musculoskeletal: other - bilateral aka Neurologic: alert, aphasia, other - responsive Psychiatric: anxious Skin: no rash Microbiology Date/Time Source Procedure Growth Status 12/23/18 07:01 Blood Blood Culture - Preliminary NO GROWTH AFTER 24 HOURS Resulted 12/23/18 06:40 Blood Blood Culture - Preliminary NO GROWTH AFTER 24 HOURS Resulted 12/23/18 07:46 Nasal Nares MRSA Culture - Final Staphylococcus Aureus - Mrsa Complete 12/23/18 12:15 Urine,Clean Catch Urine Culture - Preliminary Gram Negative Bacillus 1 Resulted 12/23/18 07:07 Urine,Clean Catch Urine Culture - Final Proteus Mirabilis Complete 12/23/18 07:46 Rectum VRE Culture - Final NO VANCOMYCIN RESISTANT ENTEROCOCCUS ... Complete 12/23/18 07:46 Rectum - Final NO CARBAPENEM-RESISTANT ENTEROBACTERI... Complete Laboratory Tests Test 12/25/18 04:00 White Blood Count 10.2 K/UL (4.8-10.8) Red Blood Count 4.41 M/UL (4.70-6.10) L Hemoglobin 12.1 G/DL (14.2-18.0) L Hematocrit 39.8 % (42.0-52.0) L Mean Corpuscular Volume 90 FL (80-99) Mean Corpuscular Hemoglobin 27.5 PG (27.0-31.0) Mean Corpuscular Hemoglobin Concent 30.5 G/DL (32.0-36.0) L Red Cell Distribution Width 15.3 % (11.6-14.8) H Platelet Count 194 K/UL (150-450) Mean Platelet Volume 7.2 FL (6.5-10.1) Neutrophils (%) (Auto) 56.8 % (45.0-75.0) Lymphocytes (%) (Auto) 34.8 % (20.0-45.0) Monocytes (%) (Auto) 7.3 % (1.0-10.0) Eosinophils (%) (Auto) 0.4 % (0.0-3.0) Basophils (%) (Auto) 0.6 % (0.0-2.0) Erythrocyte Sedimentation Rate 100 MM/HR (0-20) H Sodium Level 158 MMOL/L (136-145) H Potassium Level 4.0 MMOL/L (3.5-5.1) Chloride Level 128 MMOL/L (98-107) H Carbon Dioxide Level 24 MMOL/L (21-32) Anion Gap 7 mmol/L (5-15) Blood Urea Nitrogen 35 mg/dL (7-18) H Creatinine 0.7 MG/DL (0.55-1.30) Estimat Glomerular Filtration Rate > 60 mL/min (>60) Glucose Level 126 MG/DL (74-106) H Calcium Level 8.8 MG/DL (8.5-10.1) Phosphorus Level 1.2 MG/DL (2.5-4.9) L Magnesium Level 2.4 MG/DL (1.8-2.4) Total Bilirubin 0.3 MG/DL (0.2-1.0) Aspartate Amino Transf (AST/SGOT) 63 U/L (15-37) H Alanine Aminotransferase (ALT/SGPT) 117 U/L (12-78) H Alkaline Phosphatase 88 U/L (46-116) C-Reactive Protein, Quantitative 9.9 mg/dL (0.00-0.90) H Total Protein 7.6 G/DL (6.4-8.2) Albumin 1.8 G/DL (3.4-5.0) L Globulin 5.8 g/dL Albumin/Globulin Ratio 0.3 (1.0-2.7) L Current Medications Medications (Trade) Dose Ordered Sig/Jennifer Route PRN Reason Start Time Stop Time Status Last Admin Dose Admin Acetaminophen (Tylenol) 650 mg Q4H PRN ORAL Mild Pain/Temp > 100.5 12/23/18 23:00 01/22/19 10:59 12/23/18 22:12 Allopurinol (Zyloprim) 100 mg DAILY ORAL 12/24/18 09:00 01/23/19 08:59 12/25/18 10:23 Ascorbic Acid (Vitamin C) 500 mg DAILY ORAL 12/25/18 09:00 01/24/19 08:59 12/25/18 10:23 Cefepime HCl 2 gm/ Dextrose 110 ml @ 220 mls/hr Q24H IV 12/23/18 20:00 12/30/18 19:59 12/24/18 19:56 Chlorhexidine Gluconate (Rani-Hex 2%) 1 applic DAILY@2000 TOPIC 12/24/18 20:00 01/23/19 19:59 12/24/18 19:56 Clopidogrel Bisulfate (Plavix) 75 mg DAILY ORAL 12/24/18 09:00 01/23/19 08:59 12/25/18 10:24 Dextrose 1,000 ml @ 75 mls/hr [id number] IV 12/26/18 10:00 01/23/19 09:59 Dextrose (Dextrose 50%) 25 ml Q30M PRN IV Hypoglycemia 12/23/18 11:00 01/22/19 10:59 Dextrose (Dextrose 50%) 50 ml Q30M PRN IV Hypoglycemia 12/23/18 11:00 01/22/19 10:59 Heparin Sodium (Porcine) (Heparin 5000 units/ml) 5,000 units EVERY 12 HOURS SUBQ 12/23/18 21:00 01/22/19 20:59 12/25/18 10:25 Heparin Sodium/ Sodium Chloride (Heparin 1000 units/500ml Premix) 1,000 unit ONCE PRN IV picc line placement 12/24/18 11:00 12/26/18 10:59 Insulin Aspart (NovoLOG) BEFORE MEALS AND HS SUBQ 12/23/18 11:30 01/22/19 11:29 12/25/18 05:40 Ipratropium [place] (Atrovent) 500 mcg Q4H PRN HHN Shortness of Breath 12/24/18 22:15 12/29/18 22:14 Lidocaine HCl (Xylocaine 1% 30ml) 30 ml ONCE PRN INJ picc line placement 12/24/18 11:00 12/26/18 10:59 Nitroglycerin (Ntg) 0.4 mg Q5M PRN SL Prn Chest Pain 12/23/18 11:00 01/22/19 10:59 Ondansetron HCl (Zofran) 4 mg Q6H PRN IVP Nausea & Vomiting 12/23/18 11:00 01/22/19 10:59 Polyethylene Glycol (Miralax) 17 gm DAILYPRN PRN ORAL Constipation 12/23/18 11:00 01/22/19 10:59 Quetiapine Fumarate (SEROquel) 12.5 mg BID ORAL 12/23/18 18:00 01/22/19 17:59 12/25/18 10:23 Deepti Connolly M.D. Dec 25, 2018 10:55
--- NOTE | 2018-12-25 11:00 | NUR ---
SS note This Sw received a bioethics consult; according to [facility], patient has a decision maker to assist with decision making: Donte Mcarthur: [phone] (awaiting call back at this time).
[2018-12-25 12:00] VITALS: BP 112/100
--- NOTE | 2018-12-25 12:02 | Internal Med Progress Note ---
Subjective Date of Service: Dec 25, 2018 Physician Name Darrick Stout Attending Physician Yannick Marshall MD Current Medications Medications (Trade) Dose Ordered Sig/Jennifer Route PRN Reason Start Time Stop Time Status Last Admin Dose Admin Acetaminophen (Tylenol) 650 mg Q4H PRN ORAL Mild Pain/Temp > 100.5 12/23/18 23:00 01/22/19 10:59 12/23/18 22:12 Allopurinol (Zyloprim) 100 mg DAILY ORAL 12/24/18 09:00 01/23/19 08:59 12/25/18 10:23 Ascorbic Acid (Vitamin C) 500 mg DAILY ORAL 12/25/18 09:00 01/24/19 08:59 12/25/18 10:23 Ceftriaxone Sodium 1 gm/ Dextrose 55 ml @ 110 mls/hr DAILY IVPB 12/25/18 13:00 01/01/19 12:59 Chlorhexidine Gluconate (Rani-Hex 2%) 1 applic DAILY@2000 TOPIC 12/24/18 20:00 01/23/19 19:59 12/24/18 19:56 Clopidogrel Bisulfate (Plavix) 75 mg DAILY ORAL 12/24/18 09:00 01/23/19 08:59 12/25/18 10:24 Dextrose 1,000 ml @ 75 mls/hr [id number] IV 12/26/18 10:00 01/23/19 09:59 Dextrose (Dextrose 50%) 25 ml Q30M PRN IV Hypoglycemia 12/23/18 11:00 01/22/19 10:59 Dextrose (Dextrose 50%) 50 ml Q30M PRN IV Hypoglycemia 12/23/18 11:00 01/22/19 10:59 Heparin Sodium (Porcine) (Heparin 5000 units/ml) 5,000 units EVERY 12 HOURS SUBQ 12/23/18 21:00 01/22/19 20:59 12/25/18 10:25 Heparin Sodium/ Sodium Chloride (Heparin 1000 units/500ml Premix) 1,000 unit ONCE PRN IV picc line placement 12/24/18 11:00 12/26/18 10:59 Insulin Aspart (NovoLOG) BEFORE MEALS AND HS SUBQ 12/23/18 11:30 01/22/19 11:29 12/25/18 05:40 Ipratropium [place] (Atrovent) 500 mcg Q4H PRN HHN Shortness of Breath 12/24/18 22:15 12/29/18 22:14 Lidocaine HCl (Xylocaine 1% 30ml) 30 ml ONCE PRN INJ picc line placement 12/24/18 11:00 12/26/18 10:59 Nitroglycerin (Ntg) 0.4 mg Q5M PRN SL Prn Chest Pain 12/23/18 11:00 01/22/19 10:59 Ondansetron HCl (Zofran) 4 mg Q6H PRN IVP Nausea & Vomiting 12/23/18 11:00 01/22/19 10:59 Polyethylene Glycol (Miralax) 17 gm DAILYPRN PRN ORAL Constipation 12/23/18 11:00 01/22/19 10:59 Quetiapine Fumarate (SEROquel) 12.5 mg BID ORAL 12/23/18 18:00 01/22/19 17:59 12/25/18 10:23 Allergies: Coded Allergies: No Known Allergies (Unverified , 08/10/18) ROS Limited/Unobtainable: Yes Subjective 68 YO M admitted with shortness of breath. Now UTI. Cover for Int Med-DR Marshall. Nonverbal Objective Last Vital Signs Date Time Temp Pulse Resp B/P (MAP) Pulse Ox O2 Delivery O2 Flow Rate FiO2 12/25/18 08:00 Nasal Cannula 3.0 12/25/18 08:00 104 12/25/18 08:00 97.7 22 151/77 (101) 98 12/25/18 07:03 21 Laboratory Tests Test 12/25/18 04:00 White Blood Count 10.2 K/UL (4.8-10.8) Red Blood Count 4.41 M/UL (4.70-6.10) L Hemoglobin 12.1 G/DL (14.2-18.0) L Hematocrit 39.8 % (42.0-52.0) L Mean Corpuscular Volume 90 FL (80-99) Mean Corpuscular Hemoglobin 27.5 PG (27.0-31.0) Mean Corpuscular Hemoglobin Concent 30.5 G/DL (32.0-36.0) L Red Cell Distribution Width 15.3 % (11.6-14.8) H Platelet Count 194 K/UL (150-450) Mean Platelet Volume 7.2 FL (6.5-10.1) Neutrophils (%) (Auto) 56.8 % (45.0-75.0) Lymphocytes (%) (Auto) 34.8 % (20.0-45.0) Monocytes (%) (Auto) 7.3 % (1.0-10.0) Eosinophils (%) (Auto) 0.4 % (0.0-3.0) Basophils (%) (Auto) 0.6 % (0.0-2.0) Erythrocyte Sedimentation Rate 100 MM/HR (0-20) H Sodium Level 158 MMOL/L (136-145) H Potassium Level 4.0 MMOL/L (3.5-5.1) Chloride Level 128 MMOL/L (98-107) H Carbon Dioxide Level 24 MMOL/L (21-32) Anion Gap 7 mmol/L (5-15) Blood Urea Nitrogen 35 mg/dL (7-18) H Creatinine 0.7 MG/DL (0.55-1.30) Estimat Glomerular Filtration Rate > 60 mL/min (>60) Glucose Level 126 MG/DL (74-106) H Calcium Level 8.8 MG/DL (8.5-10.1) Phosphorus Level 1.2 MG/DL (2.5-4.9) L Magnesium Level 2.4 MG/DL (1.8-2.4) Total Bilirubin 0.3 MG/DL (0.2-1.0) Aspartate Amino Transf (AST/SGOT) 63 U/L (15-37) H Alanine Aminotransferase (ALT/SGPT) 117 U/L (12-78) H Alkaline Phosphatase 88 U/L (46-116) C-Reactive Protein, Quantitative 9.9 mg/dL (0.00-0.90) H Total Protein 7.6 G/DL (6.4-8.2) Albumin 1.8 G/DL (3.4-5.0) L Globulin 5.8 g/dL Albumin/Globulin Ratio 0.3 (1.0-2.7) L Microbiology Date/Time Source Procedure Growth Status 12/23/18 07:01 Blood Blood Culture - Preliminary NO GROWTH AFTER 24 HOURS Resulted 12/23/18 06:40 Blood Blood Culture - Preliminary NO GROWTH AFTER 24 HOURS Resulted 12/23/18 07:46 Nasal Nares MRSA Culture - Final Staphylococcus Aureus - Mrsa Complete 12/23/18 12:15 Urine,Clean Catch Urine Culture - Preliminary Gram Negative Bacillus 1 Resulted 12/23/18 07:07 Urine,Clean Catch Urine Culture - Final Proteus Mirabilis Complete 12/23/18 07:46 Rectum VRE Culture - Final NO VANCOMYCIN RESISTANT ENTEROCOCCUS ... Complete 12/23/18 07:46 Rectum - Final NO CARBAPENEM-RESISTANT ENTEROBACTERI... Complete Intake and Output 12/24/18 12/25/18 19:00 07:00 Intake Total 1100 ml 2785 ml Output Total 501 ml 650 ml Balance 599 ml 2135 ml Intake Free Water 350 ml 200 ml IV Total 150 ml 2035 ml Tube Feeding 600 ml 550 ml Output Urine Total 500 ml 650 ml Stool Total 1 ml # Bowel Movements 3 Objective PHYSICAL EXAMINATION: GENERAL: The patient is a well-developed and well-nourished slightly obese male, in no apparent distress. HEENT: Eyes, pupils are equal and responsive to light and accommodation. Extraocular movements are intact. NECK: Supple without lymphadenopathy. CHEST: Decreased breath sounds at bilateral bases. Otherwise, without wheezes or rales. CARDIOVASCULAR: Regular rhythm and rate. S1 and S2 normal without murmurs, rubs, or gallops. ABDOMINAL: Soft, nontender, and nondistended. Positive bowel sounds. No evidence of hepatosplenomegaly. Currently, no rebound or guarding noted. EXTREMITIES: Negative for clubbing, cyanosis, or edema. RECTAL/GENITAL: Not performed. NEUROLOGIC: Cranial nerves II through XII are grossly intact without focal deficits. Assessment/Plan Assessment/Plan ASSESSMENT: This is a 68-year-old male. 1. Respiratory distress. 2. Shortness of breath. 3. Leukocytosis. 4. Probable sepsis. 5. Diabetes type 2. 6. Hypertension. 7. Cerebrovascular disease. 8. Dysphagia. 9. Alzheimer's dementia. 10. Urinary tract infection=Proteus Mirabilis TREATMENT: 1. Respiratory distress/shortness of breath. A Pulmonary consultation has been obtained with Dr. Jaylin Dickson. An initial chest x-ray is reported as no acute disease. We will follow recommendation of Pulmonary. 2. Urinary tract infection. Initial urine showed wbc too numerous to count. A urine culture is pending. Continue ceftriaxone per ID-Dr Connolly 3. Probable sepsis. As above, the patient has been started on vancomycin and cefepime. Urine and blood cultures are pending. 4. Diabetes type 2. NovoLog sliding scale has been instituted. 5. Hypertension. The patient is currently hypotensive. 6. Cerebrovascular disease. Continue Plavix and aspirin as above. 7. Dysphagia. Continue tube feeds as above. 8. Alzheimer's dementia. Darrick Stout MD Dec 25, 2018 12:02
--- NOTE | 2018-12-25 12:36 | NUR ---
NURSE NOTES: PLACED A TELEPHONE CALL TO DR VARELA AND MADE AWARE AND NOTIFIED REGARDING PHOSPHOROUS LEVEL IS 1.2. MESSAGE LEFT ON VOICE MAIL. WILL CONT TO MONITOR.
--- NOTE | 2018-12-25 13:17 | NUR ---
[facility] SI: RESP INSUFFICIENCY,SEPSIS T. 97.7 HR 104 RR 20 B/P 112/60 VM 35% IS: IVF D5@ 75ML/HR [id number] IV HEPARIN SUBC STEP DOWN STATUS
--- NOTE | 2018-12-25 13:19 | NUR ---
HUMAN PROJECTILE NOTES SPOKE WITH ROQUE FROM [facility], TELEPHONE REVIEW COMPLETED. WILL DISCUSS WITH MD THE PLAN OF CARE.
--- NOTE | 2018-12-25 13:42 | NUR ---
SS note This SW spoke with patients decisions maker (who is the significant other) son, Chepe @ [phone] who explains he will let his mother know that we are trying to locate her. Son informed this SW will need to discuss end of life decision making for patient. Son explains Donte, decision maker will call this SW as soon as possible.
[2018-12-25] MEDS: cefTRIAXone 1 GM in D5W 55 ML IVPB SCH (13:50)
--- NOTE | 2018-12-25 13:58 | Surgery Progress Note ---
Surgery Progress Note Subjective Additional Comments leukocytosis resolved picc line placed esr elevated exam unchanged. Objective Last 24 Hour Vital Signs Date Time Temp Pulse Resp B/P (MAP) Pulse Ox O2 Delivery O2 Flow Rate FiO2 12/25/18 12:00 108 12/25/18 12:00 Nasal Cannula 3.0 12/25/18 12:00 97.7 100 20 112/100 (104) 69 12/25/18 08:00 Nasal Cannula 3.0 12/25/18 08:00 104 12/25/18 08:00 97.7 104 22 151/77 (101) 98 12/25/18 07:03 97 Room Air 21 12/25/18 07:03 93 24 97 Room Air 21 12/25/18 04:00 Nasal Cannula 3.0 12/25/18 04:00 98.4 102 24 98/62 (74) 98 12/25/18 03:53 101 12/25/18 00:00 98.6 106 24 111/68 (82) 98 12/25/18 00:00 Nasal Cannula 3.0 12/24/18 23:25 117 12/24/18 21:00 92 22 99 Venturi Mask 6.0 35 12/24/18 20:52 102 24 88 Room Air 21 12/24/18 20:51 88 Room Air 21 12/24/18 20:50 104 24 88 Room Air 21 12/24/18 20:00 Nasal Cannula 3.0 12/24/18 20:00 98.2 107 23 114/74 (87) 98 12/24/18 19:37 106 12/24/18 16:05 102 12/24/18 16:00 Nasal Cannula 3.0 12/24/18 16:00 97.7 82 23 103/65 (78) 96 I&O Intake and Output 12/24/18 12/25/18 19:00 07:00 Intake Total 1100 ml 2785 ml Output Total 501 ml 650 ml Balance 599 ml 2135 ml Intake Free Water 350 ml 200 ml IV Total 150 ml 2035 ml Tube Feeding 600 ml 550 ml Output Urine Total 500 ml 650 ml Stool Total 1 ml # Bowel Movements 3 Dressing: saturated Wound: clean Cardiovascular: RSR Respiratory: clear Abdomen: soft, present bowel sounds, non-distended Extremities: no cyanosis, other Laboratory Tests Test 12/25/18 04:00 White Blood Count 10.2 K/UL (4.8-10.8) Red Blood Count 4.41 M/UL (4.70-6.10) L Hemoglobin 12.1 G/DL (14.2-18.0) L Hematocrit 39.8 % (42.0-52.0) L Mean Corpuscular Volume 90 FL (80-99) Mean Corpuscular Hemoglobin 27.5 PG (27.0-31.0) Mean Corpuscular Hemoglobin Concent 30.5 G/DL (32.0-36.0) L Red Cell Distribution Width 15.3 % (11.6-14.8) H Platelet Count 194 K/UL (150-450) Mean Platelet Volume 7.2 FL (6.5-10.1) Neutrophils (%) (Auto) 56.8 % (45.0-75.0) Lymphocytes (%) (Auto) 34.8 % (20.0-45.0) Monocytes (%) (Auto) 7.3 % (1.0-10.0) Eosinophils (%) (Auto) 0.4 % (0.0-3.0) Basophils (%) (Auto) 0.6 % (0.0-2.0) Erythrocyte Sedimentation Rate 100 MM/HR (0-20) H Sodium Level 158 MMOL/L (136-145) H Potassium Level 4.0 MMOL/L (3.5-5.1) Chloride Level 128 MMOL/L (98-107) H Carbon Dioxide Level 24 MMOL/L (21-32) Anion Gap 7 mmol/L (5-15) Blood Urea Nitrogen 35 mg/dL (7-18) H Creatinine 0.7 MG/DL (0.55-1.30) Estimat Glomerular Filtration Rate > 60 mL/min (>60) Glucose Level 126 MG/DL (74-106) H Calcium Level 8.8 MG/DL (8.5-10.1) Phosphorus Level 1.2 MG/DL (2.5-4.9) L Magnesium Level 2.4 MG/DL (1.8-2.4) Total Bilirubin 0.3 MG/DL (0.2-1.0) Aspartate Amino Transf (AST/SGOT) 63 U/L (15-37) H Alanine Aminotransferase (ALT/SGPT) 117 U/L (12-78) H Alkaline Phosphatase 88 U/L (46-116) C-Reactive Protein, Quantitative 9.9 mg/dL (0.00-0.90) H Total Protein 7.6 G/DL (6.4-8.2) Albumin 1.8 G/DL (3.4-5.0) L Globulin 5.8 g/dL Albumin/Globulin Ratio 0.3 (1.0-2.7) L Plan Problems: (1) Acute encephalopathy (2) Urinary tract infection (3) Encephalopathy (4) Severe sepsis (5) CVA (cerebral vascular accident) (6) Feeding by G-tube Assessment & Plan: DAILY ESTIMATED NEEDS: Needs based on Wounds, sepsis/ 54.2kg 25-30 kcals/kg 5848-9758 total kcals 1.25-2 g protein/kg 67-108 g total protein 25-30 mL/kg 9834-0719 total fluid mLs NUTRITION DIAGNOSIS: * Swallowing difficulty R/T dysphagia as evidenced by pt is PEG dep. * Increased kcal/prot needs R/T wound healing as evidenced by admitted w/ sacral and lt stump wounds, pending evaluation. * Altered nutrition related lab values R/T dehydration, clinical condition as evidenced by elev Na (160), elev BUN (42). CURRENT TF:Glucerna 1.5 @ 50ml/hr x 24 hrs ENTERAL NUTRITION RECOMMENDATIONS: Glucerna 1.2 @ 55ml/hr x 24 hrs to provide 1320ml, 1584kcal, 79g prot, 1062ml free water * Rec TF CHANGE Glucerna 1.2 for increased free water * Initiate Glucerna 1.2 @ 35ml/hr x 6 hrs, advance 10ml q 4-6 hrs as tolerated to goal rate * HOB over 30 degrees/ water flush per MD ADDITIONAL RECOMMENDATIONS: 1) CALIBRATED bedscale wt, weekly wt monitoring 2) Wound healing: add Vit C 500mg QD : add Wally 1pkt BID 3) Monitor lytes, replete as needed (low K, phos, mag) (7) Alzheimer's dementia (8) Hypernatremia (9) ATN (acute tubular necrosis) (10) PVD (peripheral vascular disease) (11) Dehydration (12) Hypernatremia (13) Iron deficiency anemia (14) Decubitus skin ulcer Assessment & Plan: Pt presented on admission with Bilat AKA. Stable dry eschar without erythema or elevation in skin temp noted to Base of L AKA stump. (L)1cm x (W)0.8cm. Unstageable pressure injury noted to sacrum. Base of wound is necrotic , partially opened with surrounding maroon borders that are fluctuant. Pt exhibited agitation when area minimally palpated. (L)4cm x (W)5.5cm. Non- blanchable erythema periwound. Scrotal erythema noted. Tx.Plan: Cleanse Sacrum with Saline. Apply Therahoney. Apply Triad paste periwound. Cover with Optifoam drsg daily and prn. Cleanse wound L AKA with Saline. Apply Therahoney. Apply Cavilon Skin Barrier periwound. Cover with Optifoam every 3 days and prn. Apply Moisture Barrier paste to scrotal and groin areas with each incontinence care. APM/KEZIA Mattress overlay. Reposition at least every 2hours or as tolerated. (15) Renal failure (ARF), acute on chronic (16) Sepsis (17) UTI (urinary tract infection) (18) Abnormal LFTs Assessment & Plan: Patient presents with sepsis, leukocytosis, tachycardia, change in mental status, abnormal LFTs, abnormal labs. Ultrasound of abdomen ordered Trend labs IV fluids IV antibiotics as per infectious disease We will follow with recommendations as work-up continues Emiliano Martinez Dec 25, 2018 13:58
--- NOTE | 2018-12-25 15:05 | NUR ---
*-* INSURANCE *-* ALL CLINICALS AND REVIEW HAVE BEEN FAXED TO: IPA: [id number] P: [phone] F: [phone] (FAX CLINICALS)
[2018-12-25 16:00] VITALS: BP 106/59
--- NOTE | 2018-12-25 17:00 | NUR ---
NURSE NOTES: PT HR 115 TO 120 RN IN CHARGE PLACED A TELEPHONE CALL TO DR VARELA AND MADE AWARE AND NOTIFIED REGARDING PT HR [address]D VARELA ORDER TO HOLD TRANSFER TO [facility].WILL CONT TO MONITOR.
--- NOTE | 2018-12-25 19:05 | NUR ---
NURSE NOTES: Pt report received from SRIRAM SMITH VELASQUEZ. pt appears to be stable resting in bed. pt is obtunded neuro moran, however, pt pupils are round and reactive to light and accommodating bilaterally. pt has a site monitor attached, showing ST, no other signs symptoms of acute cardiac distress noted. muro is patent draining to gravity, no abnormalities noted. PICC line appears to be asymptomatic. pt is on a nasal canula able to run 3L, able to sat at 98%, no acute signs symptoms of resp distress noted. pt bed is locked and low, bed armed, bed rails in place times 3, call light within reach. will continue plan of care.
--- NOTE | 2018-12-25 19:18 | NUR ---
HAND-OFF: Report given to .NURY SMITH.
--- NOTE | 2018-12-25 19:43 | NUR ---
NURSE NOTES: Messaged MD Dickson about Pt phosphorus 1.2. recommended to give phosphorus. awaiting new orders.
[2018-12-25 20:00] VITALS: BP 106/61
[2018-12-25] MEDS: Dyna-Hex 2% Top Sol 2oz TOPIC SCH (20:55)
[2018-12-26] VITALS: BP 113/67
--- NOTE | 2018-12-26 01:24 | NUR ---
NURSE NOTES: called MD Marshall and left a message regarding Pt 1 MIN episode of SVT. awaiting new orders. pt is stable as of now.
[2018-12-26 04:00] VITALS: BP 106/62
[2018-12-26 05:33] LABS: BASOPHILS % (AUTO) 0.9 % (0.0-2.0); EOSINOPHILS % (AUTO) 0.8 % (0.0-3.0); HEMATOCRIT 37.4 % (42.0-52.0); HEMOGLOBIN 11.5 G/DL (14.2-18.0); LYMPHOCYTES % (AUTO) 53.7 % (20.0-45.0); MEAN CORPUSCULAR VOLUME 90 FL (80-99); MONOCYTES % (AUTO) 5.8 % (1.0-10.0); NEUTROPHILS % (AUTO) 38.8 % (45.0-75.0); PLATELET COUNT 165 K/UL (150-450); RED BLOOD COUNT 4.15 M/UL (4.70-6.10); WHITE BLOOD COUNT 9.9 K/UL (4.8-10.8)
[2018-12-26 06:11] LABS: ALANINE AMINOTRANSFERASE 91 U/L (12-78); ALBUMIN 1.7 G/DL (3.4-5.0); ALBUMIN/GLOBULIN RATIO 0.3 (1.0-2.7); ALKALINE PHOSPHATASE 78 U/L (46-116); ANION GAP 6 mmol/L (5-15); ASPARTATE AMINO TRANSFERASE 45 U/L (15-37); BILIRUBIN,TOTAL 0.3 MG/DL (0.2-1.0); BLOOD UREA NITROGEN 22 mg/dL (7-18); CALCIUM 8.4 MG/DL (8.5-10.1); CARBON DIOXIDE 26 MMOL/L (21-32); CHLORIDE 116 MMOL/L (98-107); CREATININE 0.6 MG/DL (0.55-1.30); POTASSIUM 3.9 MMOL/L (3.5-5.1); SODIUM 148 MMOL/L (136-145)
[2018-12-26] MEDS: NovoLOG Insulin Flexpen SUBQ SCH ×4 (06:14→20:25)
--- NOTE | 2018-12-26 07:30 | NUR ---
HAND-OFF: Report given to Carolyne ENG.
[2018-12-26 08:00] VITALS: BP 99/61
--- NOTE | 2018-12-26 08:00 | NUR ---
NURSE NOTES: received pt in the bed, nonverbal, vital signs stable, no co pain, no SOB, skin warm and dry to touch, dressing on sacral area dry and intact, PICC line on left upper arm, dressing dry and intact, Pelayo catheter with yellow urine, tolerate GT feeding well, bed in low position, HOB elevated.
--- NOTE | 2018-12-26 08:55 | Diagnostic Imaging Report ---
Indication: Dyspnea Technique: One view of the chest Comparison: 12/23/2018 Findings: There is persistent elevation left hemidiaphragm with minimal atelectasis at the left lung base noted. The lungs and pleural spaces are otherwise clear. The heart size is probably normal although the heart borders appeared. There is torturous ectatic and calcified. There are right supraclavicular fossa surgical clips. There are degenerative changes of the right shoulder. Findings are unchanged Impression: Unchanged, over 3 days, findings as above.
--- NOTE | 2018-12-26 09:00 | NUR ---
RADIOLOGY DEPT., CHEST X-RAY DONE.-P.DYE
[2018-12-26] MEDS: Ascorbic Acid 500mg tab ORAL SCH (09:12)
[2018-12-26] MEDS: Allopurinol 100mg Tab ORAL SCH (09:12)
[2018-12-26] MEDS: cefTRIAXone 1 GM in D5W 55 ML IVPB SCH (09:13)
[2018-12-26] MEDS: Heparin 5000 units/ml inj SUBQ SCH ×2 (09:14→20:27)
--- NOTE | 2018-12-26 10:45 | Surgery Progress Note ---
Surgery Progress Note Subjective Additional Comments cxr okay urine micro noted on IV abx exam stable labs stable no leukocytosis h/h okay electrolytes being replaced Objective Last 24 Hour Vital Signs Date Time Temp Pulse Resp B/P (MAP) Pulse Ox O2 Delivery O2 Flow Rate FiO2 12/26/18 08:00 102 12/26/18 08:00 96.6 95 20 99/61 (74) 97 12/26/18 08:00 Nasal Cannula 3.0 12/26/18 07:55 97 Room Air 21 12/26/18 04:00 98.6 100 21 106/62 (77) 99 12/26/18 04:00 Nasal Cannula 3.0 12/26/18 03:26 115 12/26/18 00:54 189 12/26/18 00:00 99.0 68 21 113/67 (82) 98 12/26/18 00:00 Nasal Cannula 3.0 12/25/18 23:27 121 12/25/18 20:41 99 21 97 Room Air 21 12/25/18 20:41 97 Room Air 21 12/25/18 20:00 Nasal Cannula 3.0 12/25/18 20:00 98.3 102 21 106/61 (76) 98 12/25/18 19:22 106 12/25/18 16:00 99 12/25/18 16:00 Nasal Cannula 3.0 12/25/18 16:00 98.1 106 21 106/59 (75) 12/25/18 12:00 108 12/25/18 12:00 Nasal Cannula 3.0 12/25/18 12:00 97.7 100 20 112/100 (104) 69 I&O Intake and Output 12/25/18 12/26/18 19:00 07:00 Intake Total 1730 ml 1275 ml Output Total 950 ml 800 ml Balance 780 ml 475 ml Intake Free Water 400 ml 100 ml IV Total 730 ml 675 ml Tube Feeding 600 ml 500 ml Output Urine Total 950 ml 800 ml Dressing: saturated Wound: clean Cardiovascular: RSR Respiratory: clear Abdomen: soft, present bowel sounds, non-distended Extremities: no cyanosis, other Laboratory Tests Test 12/26/18 03:00 White Blood Count 9.9 K/UL (4.8-10.8) Red Blood Count 4.15 M/UL (4.70-6.10) L Hemoglobin 11.5 G/DL (14.2-18.0) L Hematocrit 37.4 % (42.0-52.0) L Mean Corpuscular Volume 90 FL (80-99) Mean Corpuscular Hemoglobin 27.8 PG (27.0-31.0) Mean Corpuscular Hemoglobin Concent 30.8 G/DL (32.0-36.0) L Red Cell Distribution Width 15.0 % (11.6-14.8) H Platelet Count 165 K/UL (150-450) Mean Platelet Volume 6.8 FL (6.5-10.1) Neutrophils (%) (Auto) 38.8 % (45.0-75.0) L Lymphocytes (%) (Auto) 53.7 % (20.0-45.0) H Monocytes (%) (Auto) 5.8 % (1.0-10.0) Eosinophils (%) (Auto) 0.8 % (0.0-3.0) Basophils (%) (Auto) 0.9 % (0.0-2.0) Sodium Level 148 MMOL/L (136-145) #H Potassium Level 3.9 MMOL/L (3.5-5.1) Chloride Level 116 MMOL/L (98-107) H Carbon Dioxide Level 26 MMOL/L (21-32) Anion Gap 6 mmol/L (5-15) Blood Urea Nitrogen 22 mg/dL (7-18) H Creatinine 0.6 MG/DL (0.55-1.30) Estimat Glomerular Filtration Rate > 60 mL/min (>60) Glucose Level 97 MG/DL (74-106) Calcium Level 8.4 MG/DL (8.5-10.1) L Total Bilirubin 0.3 MG/DL (0.2-1.0) Aspartate Amino Transf (AST/SGOT) 45 U/L (15-37) H Alanine Aminotransferase (ALT/SGPT) 91 U/L (12-78) H Alkaline Phosphatase 78 U/L (46-116) Pro-B-Type Natriuretic Peptide 724 pg/mL (0-125) H Total Protein 7.4 G/DL (6.4-8.2) Albumin 1.7 G/DL (3.4-5.0) L Globulin 5.7 g/dL Albumin/Globulin Ratio 0.3 (1.0-2.7) L Plan Problems: (1) Acute encephalopathy (2) Urinary tract infection (3) Encephalopathy (4) Severe sepsis (5) CVA (cerebral vascular accident) (6) Feeding by G-tube Assessment & Plan: DAILY ESTIMATED NEEDS: Needs based on Wounds, sepsis/ 54.2kg 25-30 kcals/kg 4895-6544 total kcals 1.25-2 g protein/kg 67-108 g total protein 25-30 mL/kg 1631-4526 total fluid mLs NUTRITION DIAGNOSIS: * Swallowing difficulty R/T dysphagia as evidenced by pt is PEG dep. * Increased kcal/prot needs R/T wound healing as evidenced by admitted w/ sacral and lt stump wounds, pending evaluation. * Altered nutrition related lab values R/T dehydration, clinical condition as evidenced by elev Na (160), elev BUN (42). CURRENT TF:Glucerna 1.5 @ 50ml/hr x 24 hrs ENTERAL NUTRITION RECOMMENDATIONS: Glucerna 1.2 @ 55ml/hr x 24 hrs to provide 1320ml, 1584kcal, 79g prot, 1062ml free water * Rec TF CHANGE Glucerna 1.2 for increased free water * Initiate Glucerna 1.2 @ 35ml/hr x 6 hrs, advance 10ml q 4-6 hrs as tolerated to goal rate * HOB over 30 degrees/ water flush per MD ADDITIONAL RECOMMENDATIONS: 1) CALIBRATED bedscale wt, weekly wt monitoring 2) Wound healing: add Vit C 500mg QD : add Wally 1pkt BID 3) Monitor lytes, replete as needed (low K, phos, mag) (7) Alzheimer's dementia (8) Hypernatremia (9) ATN (acute tubular necrosis) (10) PVD (peripheral vascular disease) (11) Dehydration (12) Hypernatremia (13) Iron deficiency anemia (14) Decubitus skin ulcer Assessment & Plan: Pt presented on admission with Bilat AKA. Stable dry eschar without erythema or elevation in skin temp noted to Base of L AKA stump. (L)1cm x (W)0.8cm. Unstageable pressure injury noted to sacrum. Base of wound is necrotic , partially opened with surrounding maroon borders that are fluctuant. Pt exhibited agitation when area minimally palpated. (L)4cm x (W)5.5cm. Non- blanchable erythema periwound. Scrotal erythema noted. Tx.Plan: Cleanse Sacrum with Saline. Apply Therahoney. Apply Triad paste periwound. Cover with Optifoam drsg daily and prn. Cleanse wound L AKA with Saline. Apply Therahoney. Apply Cavilon Skin Barrier periwound. Cover with Optifoam every 3 days and prn. Apply Moisture Barrier paste to scrotal and groin areas with each incontinence care. APM/KEZIA Mattress overlay. Reposition at least every 2hours or as tolerated. (15) Renal failure (ARF), acute on chronic (16) Sepsis (17) UTI (urinary tract infection) (18) Abnormal LFTs Assessment & Plan: Patient presents with sepsis, leukocytosis, tachycardia, change in mental status, abnormal LFTs, abnormal labs. - improved Trend labs IV fluids IV antibiotics as per infectious disease We will follow with recommendations as work-up continues Emiliano Martinez Dec 26, 2018 10:45
[2018-12-26] MEDS ORDERED: Tubing IV Secondary IV ONE (10:57)
--- NOTE | 2018-12-26 11:00 | NUR ---
NURSE NOTES: pt had episode of SVT HR 180, last night, asymptomatic, dr. Dickson notified.
--- NOTE | 2018-12-26 11:10 | Pulmonology Progress Note ---
Assessment/Plan Problems: (1) Acute encephalopathy (2) Sepsis (3) ATN (acute tubular necrosis) (4) UTI (urinary tract infection) (5) Alzheimer's dementia (6) Decubitus skin ulcer (7) CVA (cerebral vascular accident) (8) Feeding by G-tube (9) S/P AKA (above knee amputation) bilateral Assessment/Plan improving VS stable iv fluids, decrease to 75 cc/hour check K and bun Urine has GNR, f/u ID, Sensitivity are available. on Ceftriaxone. continue Gtube feeding Subjective ROS Limited/Unobtainable: No Constitutional: Reports: no symptoms HEENT: Repors: no symptoms Respiratory: Reports: no symptoms Allergies: Coded Allergies: No Known Allergies (Unverified , 08/10/18) Objective Last 24 Hour Vital Signs Date Time Temp Pulse Resp B/P (MAP) Pulse Ox O2 Delivery O2 Flow Rate FiO2 12/26/18 08:00 102 12/26/18 08:00 96.6 95 20 99/61 (74) 97 12/26/18 08:00 Nasal Cannula 3.0 12/26/18 07:55 97 Room Air 21 12/26/18 04:00 98.6 100 21 106/62 (77) 99 12/26/18 04:00 Nasal Cannula 3.0 12/26/18 03:26 115 12/26/18 00:54 189 12/26/18 00:00 99.0 68 21 113/67 (82) 98 12/26/18 00:00 Nasal Cannula 3.0 12/25/18 23:27 121 12/25/18 20:41 99 21 97 Room Air 21 12/25/18 20:41 97 Room Air 21 12/25/18 20:00 Nasal Cannula 3.0 12/25/18 20:00 98.3 102 21 106/61 (76) 98 12/25/18 19:22 106 12/25/18 16:00 99 12/25/18 16:00 Nasal Cannula 3.0 12/25/18 16:00 98.1 106 21 106/59 (75) 12/25/18 12:00 108 12/25/18 12:00 Nasal Cannula 3.0 12/25/18 12:00 97.7 100 20 112/100 (104) 69 Intake and Output 12/25/18 12/26/18 19:00 07:00 Intake Total 1730 ml 1275 ml Output Total 950 ml 800 ml Balance 780 ml 475 ml Intake Free Water 400 ml 100 ml IV Total 730 ml 675 ml Tube Feeding 600 ml 500 ml Output Urine Total 950 ml 800 ml General Appearance: WD/WN HEENT: normocephalic, atraumatic Respiratory/Chest: chest wall non-tender, lungs clear Cardiovascular: normal peripheral pulses, normal rate Abdomen: normal bowel sounds, soft, non tender Genitourinary: normal external genitalia Extremities: no clubbing 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 Lymphatic: no groin adenopathy Microbiology Date/Time Source Procedure Growth Status 12/23/18 12:15 Urine,Clean Catch Urine Culture - Final Proteus Mirabilis Complete Laboratory Tests 12/26/18 03:00: White Blood Count 9.9, Red Blood Count 4.15L, Hemoglobin 11.5L, Hematocrit 37.4L , Mean Corpuscular Volume 90, Mean Corpuscular Hemoglobin 27.8, Mean Corpuscular Hemoglobin Concent 30.8L, Red Cell Distribution Width 15.0H, Platelet Count 165, Mean Platelet Volume 6.8, Neutrophils (%) (Auto) 38.8L, Lymphocytes (%) (Auto) 53.7H, Monocytes (%) (Auto) 5.8, Eosinophils (%) (Auto) 0.8, Basophils (%) (Auto) 0.9, Sodium Level 148#H, Potassium Level 3.9, Chloride Level 116H, Carbon Dioxide Level 26, Anion Gap 6, Blood Urea Nitrogen 22H, Creatinine 0.6, Estimat Glomerular Filtration Rate > 60, Glucose Level 97, Calcium Level 8.4L, Total Bilirubin 0.3, Aspartate Amino Transf (AST/SGOT) 45H, Alanine Aminotransferase (ALT/SGPT) 91H, Alkaline Phosphatase 78, Pro-B-Type Natriuretic Peptide 724H, Total Protein 7.4, Albumin 1.7L, Globulin 5.7, Albumin /Globulin Ratio 0.3L Current Medications Medications (Trade) Dose Ordered Sig/Jennifer Route PRN Reason Start Time Stop Time Status Last Admin Dose Admin Acetaminophen (Tylenol) 650 mg Q4H PRN ORAL Mild Pain/Temp > 100.5 12/23/18 23:00 01/22/19 10:59 12/23/18 22:12 Allopurinol (Zyloprim) 100 mg DAILY ORAL 12/24/18 09:00 01/23/19 08:59 12/26/18 09:12 Ascorbic Acid (Vitamin C) 500 mg DAILY ORAL 12/25/18 09:00 01/24/19 08:59 12/26/18 09:12 Ceftriaxone Sodium 1 gm/ Dextrose 55 ml @ 110 mls/hr DAILY IVPB 12/25/18 13:00 01/01/19 12:59 12/26/18 09:13 Chlorhexidine Gluconate (Rani-Hex 2%) 1 applic DAILY@2000 TOPIC 12/24/18 20:00 01/23/19 19:59 12/25/18 20:55 Clopidogrel Bisulfate (Plavix) 75 mg DAILY ORAL 12/24/18 09:00 01/23/19 08:59 12/26/18 09:12 Dextrose 1,000 ml @ 75 mls/hr [id number] IV 12/26/18 10:00 01/23/19 09:59 12/26/18 09:15 Dextrose (Dextrose 50%) 25 ml Q30M PRN IV Hypoglycemia 12/23/18 11:00 01/22/19 10:59 Dextrose (Dextrose 50%) 50 ml Q30M PRN IV Hypoglycemia 12/23/18 11:00 01/22/19 10:59 Heparin Sodium (Porcine) (Heparin 5000 units/ml) 5,000 units EVERY 12 HOURS SUBQ 12/23/18 21:00 01/22/19 20:59 12/26/18 09:14 Insulin Aspart (NovoLOG) BEFORE MEALS AND HS SUBQ 12/23/18 11:30 01/22/19 11:29 12/25/18 20:56 Ipratropium Wallace (Atrovent) 500 mcg Q4H PRN HHN Shortness of Breath 12/24/18 22:15 12/29/18 22:14 Nitroglycerin (Ntg) 0.4 mg Q5M PRN SL Prn Chest Pain 12/23/18 11:00 01/22/19 10:59 Ondansetron HCl (Zofran) 4 mg Q6H PRN IVP Nausea & Vomiting 12/23/18 11:00 01/22/19 10:59 Polyethylene Glycol (Miralax) 17 gm DAILYPRN PRN ORAL Constipation 12/23/18 11:00 01/22/19 10:59 Quetiapine Fumarate (SEROquel) 12.5 mg BID ORAL 12/23/18 18:00 01/22/19 17:59 12/26/18 09:12 Sodium Phosphate 30 mm/Sodium Chloride 285 ml @ 47.5 mls/hr ONCE ONCE IV 12/26/18 12:30 12/26/18 18:29 Jaylin Dickson MD Dec 26, 2018 11:10
[2018-12-26 12:00] VITALS: BP 105/53
[2018-12-26] MEDS ORDERED: Sodium Phosphate 30 MM in NS 275 ML IV ONE (12:30)
--- NOTE | 2018-12-26 12:36 | NUR ---
[employer] PILOT SI: SEVERE SEPSIS T. 96.6 HR 115 RR 16 B/P 99/61 NA 148 AST 45 ALT 91 ALK PHOS 724 IS: NA PHOS IV IVF D5 @ 75ML/HR CEFTRIAXONE IV HEPARIN SUBC SEROQUEL PO BIOETHICS STEP DOWN STATUS
--- NOTE | 2018-12-26 13:22 | Infectious Diseases Prog Note ---
Assessment/Plan Assessment/Plan Assessment: Sepsis- likely 2ry to UTI -Bcx NTD -CXR: No definite acute process. Findings as noted -u/a wbc tnct, nit+, leuk +3; ucx >100k P. mirabilis (S Ceftriaxone, Ertapenem , Zosyn) Low grade fever x1 Leukocytosis; SP Lactic acidosis, SP Acute on chronic Encephalopathy advanced dementia PVD CVA HTN non verbal Dm2 b/l AKA dysphagia s/p [facility] resident Plan: -Continue Ceftriaxone #2 (abx d#/) for UTI -12/25 SP IV Vancomycin #3, Cefepime #3 -12/23 SP Flagyl #1 -f/u cx -Monitor CBC/CMP, temperatures -aspiration precautions -cdiff if diarrhea Thank you for this consultation. Will continue to follow along with you. Discussed with RN. Subjective Allergies: Coded Allergies: No Known Allergies (Unverified , 08/10/18) Subjective afebrile >72hrs no leukocytosis Bcx NTD Objective Vital Signs Last 24 Hour Vital Signs Date Time Temp Pulse Resp B/P (MAP) Pulse Ox O2 Delivery O2 Flow Rate FiO2 12/26/18 12:00 Nasal Cannula 3.0 12/26/18 12:00 97.9 95 22 105/53 (70) 98 12/26/18 08:00 102 12/26/18 08:00 96.6 95 20 99/61 (74) 97 12/26/18 08:00 Nasal Cannula 3.0 12/26/18 07:55 97 Room Air 21 12/26/18 04:00 98.6 100 21 106/62 (77) 99 12/26/18 04:00 Nasal Cannula 3.0 12/26/18 03:26 115 12/26/18 00:54 189 12/26/18 00:00 99.0 68 21 113/67 (82) 98 12/26/18 00:00 Nasal Cannula 3.0 12/25/18 23:27 121 12/25/18 20:41 99 21 97 Room Air 21 12/25/18 20:41 97 Room Air 21 12/25/18 20:00 Nasal Cannula 3.0 12/25/18 20:00 98.3 102 21 106/61 (76) 98 12/25/18 19:22 106 12/25/18 16:00 99 12/25/18 16:00 Nasal Cannula 3.0 12/25/18 16:00 98.1 106 21 106/59 (75) Height (Feet): 3 Height (Inches): 4.00 Weight (Pounds): 83 Objective General Appearance: alert, thin, Chronically Ill Eyes: bilateral eye PERRL ENT: dry mucus membranes Neck: limited range of motion Respiratory: lungs clear, normal breath sounds, other - tachypnea Cardiovascular #1: other - bilateral aka Gastrointestinal: normal inspection, non tender, soft Musculoskeletal: other - bilateral aka Neurologic: alert, aphasia, other - responsive Psychiatric: anxious Skin: no rash Laboratory Tests Test 12/26/18 03:00 White Blood Count 9.9 K/UL (4.8-10.8) Red Blood Count 4.15 M/UL (4.70-6.10) L Hemoglobin 11.5 G/DL (14.2-18.0) L Hematocrit 37.4 % (42.0-52.0) L Mean Corpuscular Volume 90 FL (80-99) Mean Corpuscular Hemoglobin 27.8 PG (27.0-31.0) Mean Corpuscular Hemoglobin Concent 30.8 G/DL (32.0-36.0) L Red Cell Distribution Width 15.0 % (11.6-14.8) H Platelet Count 165 K/UL (150-450) Mean Platelet Volume 6.8 FL (6.5-10.1) Neutrophils (%) (Auto) 38.8 % (45.0-75.0) L Lymphocytes (%) (Auto) 53.7 % (20.0-45.0) H Monocytes (%) (Auto) 5.8 % (1.0-10.0) Eosinophils (%) (Auto) 0.8 % (0.0-3.0) Basophils (%) (Auto) 0.9 % (0.0-2.0) Sodium Level 148 MMOL/L (136-145) #H Potassium Level 3.9 MMOL/L (3.5-5.1) Chloride Level 116 MMOL/L (98-107) H Carbon Dioxide Level 26 MMOL/L (21-32) Anion Gap 6 mmol/L (5-15) Blood Urea Nitrogen 22 mg/dL (7-18) H Creatinine 0.6 MG/DL (0.55-1.30) Estimat Glomerular Filtration Rate > 60 mL/min (>60) Glucose Level 97 MG/DL (74-106) Calcium Level 8.4 MG/DL (8.5-10.1) L Total Bilirubin 0.3 MG/DL (0.2-1.0) Aspartate Amino Transf (AST/SGOT) 45 U/L (15-37) H Alanine Aminotransferase (ALT/SGPT) 91 U/L (12-78) H Alkaline Phosphatase 78 U/L (46-116) Pro-B-Type Natriuretic Peptide 724 pg/mL (0-125) H Total Protein 7.4 G/DL (6.4-8.2) Albumin 1.7 G/DL (3.4-5.0) L Globulin 5.7 g/dL Albumin/Globulin Ratio 0.3 (1.0-2.7) L Current Medications Medications (Trade) Dose Ordered Sig/Jennifer Route PRN Reason Start Time Stop Time Status Last Admin Dose Admin Acetaminophen (Tylenol) 650 mg Q4H PRN ORAL Mild Pain/Temp > 100.5 12/23/18 23:00 01/22/19 10:59 12/23/18 22:12 Allopurinol (Zyloprim) 100 mg DAILY ORAL 12/24/18 09:00 01/23/19 08:59 12/26/18 09:12 Ascorbic Acid (Vitamin C) 500 mg DAILY ORAL 12/25/18 09:00 01/24/19 08:59 12/26/18 09:12 Ceftriaxone Sodium 1 gm/ Dextrose 55 ml @ 110 mls/hr DAILY IVPB 12/25/18 13:00 01/01/19 12:59 12/26/18 09:13 Chlorhexidine Gluconate (Rani-Hex 2%) 1 applic DAILY@2000 TOPIC 12/24/18 20:00 01/23/19 19:59 12/25/18 20:55 Clopidogrel Bisulfate (Plavix) 75 mg DAILY ORAL 12/24/18 09:00 01/23/19 08:59 12/26/18 09:12 Dextrose 1,000 ml @ 75 mls/hr [id number] IV 12/26/18 10:00 01/23/19 09:59 12/26/18 09:15 Dextrose (Dextrose 50%) 25 ml Q30M PRN IV Hypoglycemia 12/23/18 11:00 01/22/19 10:59 Dextrose (Dextrose 50%) 50 ml Q30M PRN IV Hypoglycemia 12/23/18 11:00 01/22/19 10:59 Heparin Sodium (Porcine) (Heparin 5000 units/ml) 5,000 units EVERY 12 HOURS SUBQ 12/23/18 21:00 01/22/19 20:59 12/26/18 09:14 Insulin Aspart (NovoLOG) BEFORE MEALS AND HS SUBQ 12/23/18 11:30 01/22/19 11:29 12/26/18 12:46 Ipratropium [place] (Atrovent) 500 mcg Q4H PRN HHN Shortness of Breath 12/24/18 22:15 12/29/18 22:14 Nitroglycerin (Ntg) 0.4 mg Q5M PRN SL Prn Chest Pain 12/23/18 11:00 01/22/19 10:59 Ondansetron HCl (Zofran) 4 mg Q6H PRN IVP Nausea & Vomiting 12/23/18 11:00 01/22/19 10:59 Polyethylene Glycol (Miralax) 17 gm DAILYPRN PRN ORAL Constipation 12/23/18 11:00 01/22/19 10:59 Quetiapine Fumarate (SEROquel) 12.5 mg BID ORAL 12/23/18 18:00 01/22/19 17:59 12/26/18 09:12 Sodium Phosphate 30 mm/Sodium Chloride 285 ml @ 47.5 mls/hr ONCE ONCE IV 12/26/18 12:30 12/26/18 18:29 12/26/18 12:45 Deepti Connolly M.D. Dec 26, 2018 13:22
--- NOTE | 2018-12-26 14:32 | NUR ---
*-* INSURANCE *-* ALL CLINICALS AND REVIEW HAVE BEEN FAXED TO: IPA: [id number] P: [phone] F: [phone] (FAX CLINICALS)
--- NOTE | 2018-12-26 14:37 | NUR ---
NURSE NOTES: vital signs stable, no co pain, tolerate feeding well,repositioned, continue monitoring.
[2018-12-26 16:00] VITALS: BP 113/58
--- NOTE | 2018-12-26 17:37 | Internal Med Progress Note ---
Subjective Date of Service: Dec 26, 2018 Physician Name Darrick Stout Attending Physician Yannick Marshall MD Current Medications Medications (Trade) Dose Ordered Sig/Jennifer Route PRN Reason Start Time Stop Time Status Last Admin Dose Admin Acetaminophen (Tylenol) 650 mg Q4H PRN ORAL Mild Pain/Temp > 100.5 12/23/18 23:00 01/22/19 10:59 12/23/18 22:12 Allopurinol (Zyloprim) 100 mg DAILY ORAL 12/24/18 09:00 01/23/19 08:59 12/26/18 09:12 Ascorbic Acid (Vitamin C) 500 mg DAILY ORAL 12/25/18 09:00 01/24/19 08:59 12/26/18 09:12 Ceftriaxone Sodium 1 gm/ Dextrose 55 ml @ 110 mls/hr DAILY IVPB 12/25/18 13:00 01/01/19 12:59 12/26/18 09:13 Chlorhexidine Gluconate (Rani-Hex 2%) 1 applic DAILY@2000 TOPIC 12/24/18 20:00 01/23/19 19:59 12/25/18 20:55 Clopidogrel Bisulfate (Plavix) 75 mg DAILY ORAL 12/24/18 09:00 01/23/19 08:59 12/26/18 09:12 Dextrose 1,000 ml @ 75 mls/hr [id number] IV 12/26/18 10:00 01/23/19 09:59 12/26/18 09:15 Dextrose (Dextrose 50%) 25 ml Q30M PRN IV Hypoglycemia 12/23/18 11:00 01/22/19 10:59 Dextrose (Dextrose 50%) 50 ml Q30M PRN IV Hypoglycemia 12/23/18 11:00 01/22/19 10:59 Heparin Sodium (Porcine) (Heparin 5000 units/ml) 5,000 units EVERY 12 HOURS SUBQ 12/23/18 21:00 01/22/19 20:59 12/26/18 09:14 Insulin Aspart (NovoLOG) BEFORE MEALS AND HS SUBQ 12/23/18 11:30 01/22/19 11:29 12/26/18 12:46 Ipratropium [place] (Atrovent) 500 mcg Q4H PRN HHN Shortness of Breath 12/24/18 22:15 12/29/18 22:14 Nitroglycerin (Ntg) 0.4 mg Q5M PRN SL Prn Chest Pain 12/23/18 11:00 01/22/19 10:59 Ondansetron HCl (Zofran) 4 mg Q6H PRN IVP Nausea & Vomiting 12/23/18 11:00 01/22/19 10:59 Polyethylene Glycol (Miralax) 17 gm DAILYPRN PRN ORAL Constipation 12/23/18 11:00 01/22/19 10:59 Quetiapine Fumarate (SEROquel) 12.5 mg BID ORAL 12/23/18 18:00 01/22/19 17:59 12/26/18 17:17 Sodium Phosphate 30 mm/Sodium Chloride 285 ml @ 47.5 mls/hr ONCE ONCE IV 12/26/18 12:30 12/26/18 18:29 12/26/18 12:45 Allergies: Coded Allergies: No Known Allergies (Unverified , 08/10/18) ROS Limited/Unobtainable: Yes Subjective 68 YO M admitted with shortness of breath. Now UTI. Cover for Int Med-DR Marshall. Nonverbal Objective Last Vital Signs Date Time Temp Pulse Resp B/P (MAP) Pulse Ox O2 Delivery O2 Flow Rate FiO2 12/26/18 16:00 98 12/26/18 16:00 Nasal Cannula 3.0 12/26/18 16:00 97.7 20 113/58 (76) 96 12/26/18 07:55 21 Laboratory Tests Test 12/26/18 03:00 White Blood Count 9.9 K/UL (4.8-10.8) Red Blood Count 4.15 M/UL (4.70-6.10) L Hemoglobin 11.5 G/DL (14.2-18.0) L Hematocrit 37.4 % (42.0-52.0) L Mean Corpuscular Volume 90 FL (80-99) Mean Corpuscular Hemoglobin 27.8 PG (27.0-31.0) Mean Corpuscular Hemoglobin Concent 30.8 G/DL (32.0-36.0) L Red Cell Distribution Width 15.0 % (11.6-14.8) H Platelet Count 165 K/UL (150-450) Mean Platelet Volume 6.8 FL (6.5-10.1) Neutrophils (%) (Auto) 38.8 % (45.0-75.0) L Lymphocytes (%) (Auto) 53.7 % (20.0-45.0) H Monocytes (%) (Auto) 5.8 % (1.0-10.0) Eosinophils (%) (Auto) 0.8 % (0.0-3.0) Basophils (%) (Auto) 0.9 % (0.0-2.0) Sodium Level 148 MMOL/L (136-145) #H Potassium Level 3.9 MMOL/L (3.5-5.1) Chloride Level 116 MMOL/L (98-107) H Carbon Dioxide Level 26 MMOL/L (21-32) Anion Gap 6 mmol/L (5-15) Blood Urea Nitrogen 22 mg/dL (7-18) H Creatinine 0.6 MG/DL (0.55-1.30) Estimat Glomerular Filtration Rate > 60 mL/min (>60) Glucose Level 97 MG/DL (74-106) Calcium Level 8.4 MG/DL (8.5-10.1) L Total Bilirubin 0.3 MG/DL (0.2-1.0) Aspartate Amino Transf (AST/SGOT) 45 U/L (15-37) H Alanine Aminotransferase (ALT/SGPT) 91 U/L (12-78) H Alkaline Phosphatase 78 U/L (46-116) Pro-B-Type Natriuretic Peptide 724 pg/mL (0-125) H Total Protein 7.4 G/DL (6.4-8.2) Albumin 1.7 G/DL (3.4-5.0) L Globulin 5.7 g/dL Albumin/Globulin Ratio 0.3 (1.0-2.7) L Intake and Output 12/25/18 12/26/18 19:00 07:00 Intake Total 1730 ml 1375 ml Output Total 950 ml 800 ml Balance 780 ml 575 ml Intake Free Water 400 ml 100 ml IV Total 730 ml 675 ml Tube Feeding 600 ml 600 ml Output Urine Total 950 ml 800 ml Objective PHYSICAL EXAMINATION: GENERAL: The patient is a well-developed and well-nourished slightly obese male, in no apparent distress. HEENT: Eyes, pupils are equal and responsive to light and accommodation. Extraocular movements are intact. NECK: Supple without lymphadenopathy. CHEST: Decreased breath sounds at bilateral bases. Otherwise, without wheezes or rales. CARDIOVASCULAR: Regular rhythm and rate. S1 and S2 normal without murmurs, rubs, or gallops. ABDOMINAL: Soft, nontender, and nondistended. Positive bowel sounds. No evidence of hepatosplenomegaly. Currently, no rebound or guarding noted. EXTREMITIES: Negative for clubbing, cyanosis, or edema. RECTAL/GENITAL: Not performed. NEUROLOGIC: Cranial nerves II through XII are grossly intact without focal deficits. Assessment/Plan Assessment/Plan ASSESSMENT: This is a 68-year-old male. 1. Respiratory distress. 2. Shortness of breath. 3. Leukocytosis. 4. Probable sepsis. 5. Diabetes type 2. 6. Hypertension. 7. Cerebrovascular disease. 8. Dysphagia. 9. Alzheimer's dementia. 10. Urinary tract infection=Proteus Mirabilis 11. Hypernatremia TREATMENT: 1. Respiratory distress/shortness of breath. A Pulmonary consultation has been obtained with Dr. Jaylin Dickson. An initial chest x-ray is reported as no acute disease. We will follow recommendation of Pulmonary. 2. Urinary tract infection. Initial urine showed wbc too numerous to count. A urine culture is pending. Continue ceftriaxone per ID-Dr Connolly 3. Probable sepsis. As above, the patient has been started on vancomycin and cefepime. Urine and blood cultures are pending. 4. Diabetes type 2. NovoLog sliding scale has been instituted. 5. Hypertension. The patient is currently hypotensive. 6. Cerebrovascular disease. Continue Plavix and aspirin as above. 7. Dysphagia. Continue tube feeds as above. 8. Alzheimer's dementia. 9. Continue D5W for hypernatremia Darrick Stout MD Dec 26, 2018 17:37
--- NOTE | 2018-12-26 19:32 | NUR ---
HAND-OFF: Report given to CELESTE SMITH.
--- NOTE | 2018-12-26 19:33 | NUR ---
NURSE NOTES: Received bedside report from SARAH Montes.Patient stable,non-verbal,SR-ST with episodes of SVT,MD notified by previous nurse,no new orders received,no s/sof pain,no respiratory distress noted,tolerated N/C with 2 L/min well,BS active in all quadrants,GT running with Glucerna 1.2 @ 50 ml/hr flush 200 ml every shift,PICC line inserted on 12/24 on MAHNAZ asymptomatic,intact running with D 5 1/2 NS @ 75 ml/hr,bed secured in a low safety position,call light within a reach,will continue to monitor and follow POC.
[2018-12-26 20:00] VITALS: BP 96/55
[2018-12-26] MEDS: Dyna-Hex 2% Top Sol 2oz TOPIC SCH (20:25)
[2018-12-27] VITALS: BP 106/60
[2018-12-27 04:00] VITALS: BP 108/59
[2018-12-27 04:54] LABS: BASOPHILS % (AUTO) 1.9 % (0.0-2.0); EOSINOPHILS % (AUTO) 0.8 % (0.0-3.0); HEMATOCRIT 37.2 % (42.0-52.0); HEMOGLOBIN 11.5 G/DL (14.2-18.0); LYMPHOCYTES % (AUTO) 52.4 % (20.0-45.0); MEAN CORPUSCULAR VOLUME 89 FL (80-99); MONOCYTES % (AUTO) 5.3 % (1.0-10.0); NEUTROPHILS % (AUTO) 39.7 % (45.0-75.0); PLATELET COUNT 156 K/UL (150-450); RED BLOOD COUNT 4.15 M/UL (4.70-6.10); RED CELL DISTRIBUTION WIDTH 15.2 % (11.6-14.8); WHITE BLOOD COUNT 10.2 K/UL (4.8-10.8)
[2018-12-27 05:19] LABS: ALANINE AMINOTRANSFERASE 69 U/L (12-78); ALBUMIN 1.8 G/DL (3.4-5.0); ALBUMIN/GLOBULIN RATIO 0.3 (1.0-2.7); ALKALINE PHOSPHATASE 75 U/L (46-116); ANION GAP 6 mmol/L (5-15); ASPARTATE AMINO TRANSFERASE 35 U/L (15-37); BILIRUBIN,TOTAL 0.4 MG/DL (0.2-1.0); BLOOD UREA NITROGEN 18 mg/dL (7-18); CALCIUM 8.2 MG/DL (8.5-10.1); CARBON DIOXIDE 27 MMOL/L (21-32); CHLORIDE 113 MMOL/L (98-107); CREATININE 0.7 MG/DL (0.55-1.30); PHOSPHORUS 2.7 MG/DL (2.5-4.9); POTASSIUM 3.7 MMOL/L (3.5-5.1); SODIUM 146 MMOL/L (136-145)
[2018-12-27] MEDS: NovoLOG Insulin Flexpen SUBQ SCH ×2 (05:22→11:58)
--- NOTE | 2018-12-27 06:55 | NUR ---
HAND-OFF: Report given to SARAH Carson.Patient stable.
--- NOTE | 2018-12-27 07:00 | NUR ---
NURSE NOTES: Received pt from SARAH Jackson in stable condition with no cardiopulmonary distress noted. Pt is asleep in bed, non-verbal but arousable to name on 2L O2 via NC. Pt hooked to bedspread inspector currently 85 bpm. GT noted running Glucerna 1.5 at 50cc/hr. Condom cath noted draining yellow urine. Skin alterations noted. MAHNAZ PICC line noted w/ dry and intact dressing. Bed is in lowest position with alarm on, side rails up x 2, call light within reach. Will continue to monitor pt.
[2018-12-27 08:00] VITALS: BP 106/60
[2018-12-27] MEDS: Ascorbic Acid 500mg tab ORAL SCH (08:26)
[2018-12-27] MEDS: cefTRIAXone 1 GM in D5W 55 ML IVPB SCH (08:26)
[2018-12-27] MEDS: Allopurinol 100mg Tab ORAL SCH (08:27)
[2018-12-27] MEDS: Heparin 5000 units/ml inj SUBQ SCH (08:39)
[2018-12-27 12:00] VITALS: BP 102/98
--- NOTE | 2018-12-27 13:01 | NUR ---
CERTIFIED NURSING ASSISTANT INSTRUCTOR NOTES PT ACCEPTED BACK TO [facility] [address]. AWAITING OFFICIAL DC ORDER.
--- NOTE | 2018-12-27 13:19 | Infectious Diseases Prog Note ---
Assessment/Plan Assessment/Plan Assessment: Sepsis- likely 2ry to UTI -Bcx NTD -CXR: No definite acute process. Findings as noted -u/a wbc tnct, nit+, leuk +3; ucx >100k P. mirabilis (S Ceftriaxone, Ertapenem , Zosyn) Low grade fever x1 Leukocytosis; SP Lactic acidosis, SP Acute on chronic Encephalopathy advanced dementia PVD CVA HTN non verbal Dm2 b/l AKA dysphagia s/p GT [facility] resident Plan: -Continue Ceftriaxone #3 (abx d#/) for UTI -12/25 SP IV Vancomycin #3, Cefepime #3 -12/23 SP Flagyl #1 -f/u cx -Monitor CBC/CMP, temperatures -aspiration precautions -cdiff if diarrhea Thank you for this consultation. Will continue to follow along with you. Discussed with RN. Subjective Allergies: Coded Allergies: No Known Allergies (Unverified , 08/10/18) Subjective afebrile no leukocytosis Bcx NTD Objective Vital Signs Last 24 Hour Vital Signs Date Time Temp Pulse Resp B/P (MAP) Pulse Ox O2 Delivery O2 Flow Rate FiO2 12/27/18 11:54 99 Room Air 21 12/27/18 08:00 98.8 90 20 106/60 (75) 99 12/27/18 08:00 Nasal Cannula 2.0 12/27/18 08:00 86 12/27/18 04:00 97.2 95 22 108/59 (75) 98 12/27/18 04:00 Nasal Cannula 2.0 12/27/18 03:33 102 12/27/18 00:00 Nasal Cannula 2.0 12/27/18 00:00 97.7 92 28 106/60 (75) 96 12/26/18 23:33 92 12/26/18 20:00 Nasal Cannula 3.0 12/26/18 20:00 97.5 66 22 96/55 (69) 98 12/26/18 19:45 97 Room Air 21 12/26/18 19:31 96 12/26/18 16:00 98 12/26/18 16:00 Nasal Cannula 3.0 12/26/18 16:00 97.7 91 20 113/58 (76) 96 Height (Feet): 3 Height (Inches): 4.00 Weight (Pounds): 83 Objective General Appearance: alert, thin, Chronically Ill Eyes: bilateral eye PERRL ENT: dry mucus membranes Neck: limited range of motion Respiratory: lungs clear, normal breath sounds, other - tachypnea Cardiovascular #1: other - bilateral aka Gastrointestinal: normal inspection, non tender, soft Musculoskeletal: other - bilateral aka Neurologic: alert, aphasia, other - responsive Psychiatric: anxious Skin: no rash Laboratory Tests Test 12/27/18 04:00 White Blood Count 10.2 K/UL (4.8-10.8) Red Blood Count 4.15 M/UL (4.70-6.10) L Hemoglobin 11.5 G/DL (14.2-18.0) L Hematocrit 37.2 % (42.0-52.0) L Mean Corpuscular Volume 89 FL (80-99) Mean Corpuscular Hemoglobin 27.6 PG (27.0-31.0) Mean Corpuscular Hemoglobin Concent 30.9 G/DL (32.0-36.0) L Red Cell Distribution Width 15.2 % (11.6-14.8) H Platelet Count 156 K/UL (150-450) Mean Platelet Volume 6.7 FL (6.5-10.1) Neutrophils (%) (Auto) 39.7 % (45.0-75.0) L Lymphocytes (%) (Auto) 52.4 % (20.0-45.0) H Monocytes (%) (Auto) 5.3 % (1.0-10.0) Eosinophils (%) (Auto) 0.8 % (0.0-3.0) Basophils (%) (Auto) 1.9 % (0.0-2.0) Sodium Level 146 MMOL/L (136-145) H Potassium Level 3.7 MMOL/L (3.5-5.1) Chloride Level 113 MMOL/L (98-107) H Carbon Dioxide Level 27 MMOL/L (21-32) Anion Gap 6 mmol/L (5-15) Blood Urea Nitrogen 18 mg/dL (7-18) Creatinine 0.7 MG/DL (0.55-1.30) Estimat Glomerular Filtration Rate > 60 mL/min (>60) Glucose Level 111 MG/DL (74-106) H Calcium Level 8.2 MG/DL (8.5-10.1) L Phosphorus Level 2.7 MG/DL (2.5-4.9) Magnesium Level 2.0 MG/DL (1.8-2.4) Total Bilirubin 0.4 MG/DL (0.2-1.0) Aspartate Amino Transf (AST/SGOT) 35 U/L (15-37) Alanine Aminotransferase (ALT/SGPT) 69 U/L (12-78) Alkaline Phosphatase 75 U/L (46-116) Total Protein 7.4 G/DL (6.4-8.2) Albumin 1.8 G/DL (3.4-5.0) L Globulin 5.6 g/dL Albumin/Globulin Ratio 0.3 (1.0-2.7) L Current Medications Medications (Trade) Dose Ordered Sig/Jennifer Route PRN Reason Start Time Stop Time Status Last Admin Dose Admin Acetaminophen (Tylenol) 650 mg Q4H PRN ORAL Mild Pain/Temp > 100.5 12/23/18 23:00 01/22/19 10:59 12/23/18 22:12 Allopurinol (Zyloprim) 100 mg DAILY ORAL 12/24/18 09:00 01/23/19 08:59 12/27/18 08:27 Ascorbic Acid (Vitamin C) 500 mg DAILY ORAL 12/25/18 09:00 01/24/19 08:59 12/27/18 08:26 Ceftriaxone Sodium 1 gm/ Dextrose 55 ml @ 110 mls/hr DAILY IVPB 12/25/18 13:00 01/01/19 12:59 12/27/18 08:26 Chlorhexidine Gluconate (Rani-Hex 2%) 1 applic DAILY@2000 TOPIC 12/24/18 20:00 01/23/19 19:59 12/26/18 20:25 Clopidogrel Bisulfate (Plavix) 75 mg DAILY ORAL 12/24/18 09:00 01/23/19 08:59 12/27/18 08:27 Dextrose 1,000 ml @ 75 mls/hr [id number] IV 12/26/18 10:00 01/23/19 09:59 12/27/18 03:54 Dextrose (Dextrose 50%) 25 ml Q30M PRN IV Hypoglycemia 12/23/18 11:00 01/22/19 10:59 Dextrose (Dextrose 50%) 50 ml Q30M PRN IV Hypoglycemia 12/23/18 11:00 01/22/19 10:59 Heparin Sodium (Porcine) (Heparin 5000 units/ml) 5,000 units EVERY 12 HOURS SUBQ 12/23/18 21:00 01/22/19 20:59 12/27/18 08:39 Insulin Aspart (NovoLOG) BEFORE MEALS AND HS SUBQ 12/23/18 11:30 01/22/19 11:29 12/27/18 11:58 Ipratropium [place] (Atrovent) 500 mcg Q4H PRN HHN Shortness of Breath 12/24/18 22:15 12/29/18 22:14 Nitroglycerin (Ntg) 0.4 mg Q5M PRN SL Prn Chest Pain 12/23/18 11:00 01/22/19 10:59 Ondansetron HCl (Zofran) 4 mg Q6H PRN IVP Nausea & Vomiting 12/23/18 11:00 01/22/19 10:59 Polyethylene Glycol (Miralax) 17 gm DAILYPRN PRN ORAL Constipation 12/23/18 11:00 01/22/19 10:59 Quetiapine Fumarate (SEROquel) 12.5 mg BID ORAL 12/23/18 18:00 01/22/19 17:59 12/27/18 08:27 Deepti Connolly M.D. Dec 27, 2018 13:19
--- NOTE | 2018-12-27 13:28 | NUR ---
RD ASSESSMENT & RECOMMENDATIONS SEE CARE ACTIVITY FOR COMPLETE ASSESSMENT DAILY ESTIMATED NEEDS: Needs based on Wounds, sepsis/ 54.2kg 25-30 kcals/kg 4125-0599 total kcals 1.25-2 g protein/kg 67-108 g total protein 25-30 mL/kg 3278-0013 total fluid mLs NUTRITION DIAGNOSIS: * Swallowing difficulty R/T dysphagia as evidenced by pt is PEG dep. * Increased kcal/prot needs R/T wound healing as evidenced by admitted w/ sacral unstageable wound and lt stump w/ dry eschar. * Altered nutrition related lab values R/T dehydration, clinical condition as evidenced by elev Na (160->146), elev BUN (42-> wnl). CURRENT TF:Glucerna 1.5 @ 50ml/hr x 24 hrs ENTERAL NUTRITION RECOMMENDATIONS: Glucerna 1.2 @ 55ml/hr x 24 hrs to provide 1320ml, 1584kcal, 79g prot, 1062ml free water * Rec TF CHANGE Glucerna 1.2 for increased free water * Initiate Glucerna 1.2 @ 35ml/hr x 6 hrs, advance 10ml q 4-6 hrs as tolerated to goal rate * HOB over 30 degrees/ water flush per MD ADDITIONAL RECOMMENDATIONS: 1) CALIBRATED bedscale wt, weekly wt monitoring 2) Wound healing: Continue Vit C 500mg QD : add Wally 1pkt BID 3) Monitor lytes, replete as needed . .
--- NOTE | 2018-12-27 13:49 | Internal Med Progress Note ---
Subjective Physician Name Yannick Marshall Attending Physician Yannick Marsahll MD Current Medications Medications (Trade) Dose Ordered Sig/Jennifer Route PRN Reason Start Time Stop Time Status Last Admin Dose Admin Acetaminophen (Tylenol) 650 mg Q4H PRN ORAL Mild Pain/Temp > 100.5 12/23/18 23:00 01/22/19 10:59 12/23/18 22:12 Allopurinol (Zyloprim) 100 mg DAILY ORAL 12/24/18 09:00 01/23/19 08:59 12/27/18 08:27 Ascorbic Acid (Vitamin C) 500 mg DAILY ORAL 12/25/18 09:00 01/24/19 08:59 12/27/18 08:26 Ceftriaxone Sodium 1 gm/ Dextrose 55 ml @ 110 mls/hr DAILY IVPB 12/25/18 13:00 01/01/19 12:59 12/27/18 08:26 Chlorhexidine Gluconate (Rani-Hex 2%) 1 applic DAILY@2000 TOPIC 12/24/18 20:00 01/23/19 19:59 12/26/18 20:25 Clopidogrel Bisulfate (Plavix) 75 mg DAILY ORAL 12/24/18 09:00 01/23/19 08:59 12/27/18 08:27 Dextrose 1,000 ml @ 75 mls/hr [id number] IV 12/26/18 10:00 01/23/19 09:59 12/27/18 03:54 Dextrose (Dextrose 50%) 25 ml Q30M PRN IV Hypoglycemia 12/23/18 11:00 01/22/19 10:59 Dextrose (Dextrose 50%) 50 ml Q30M PRN IV Hypoglycemia 12/23/18 11:00 01/22/19 10:59 Heparin Sodium (Porcine) (Heparin 5000 units/ml) 5,000 units EVERY 12 HOURS SUBQ 12/23/18 21:00 01/22/19 20:59 12/27/18 08:39 Insulin Aspart (NovoLOG) BEFORE MEALS AND HS SUBQ 12/23/18 11:30 01/22/19 11:29 12/27/18 11:58 Ipratropium [place] (Atrovent) 500 mcg Q4H PRN HHN Shortness of Breath 12/24/18 22:15 12/29/18 22:14 Nitroglycerin (Ntg) 0.4 mg Q5M PRN SL Prn Chest Pain 12/23/18 11:00 01/22/19 10:59 Ondansetron HCl (Zofran) 4 mg Q6H PRN IVP Nausea & Vomiting 12/23/18 11:00 01/22/19 10:59 Polyethylene Glycol (Miralax) 17 gm DAILYPRN PRN ORAL Constipation 12/23/18 11:00 01/22/19 10:59 Quetiapine Fumarate (SEROquel) 12.5 mg BID ORAL 12/23/18 18:00 01/22/19 17:59 12/27/18 08:27 Allergies: Coded Allergies: No Known Allergies (Unverified , 08/10/18) Subjective awake, open eyes, responsive with moving left upper extremity. Objective Last Vital Signs Date Time Temp Pulse Resp B/P (MAP) Pulse Ox O2 Delivery O2 Flow Rate FiO2 12/27/18 12:00 Nasal Cannula 2.0 12/27/18 11:54 99 21 12/27/18 08:00 98.8 90 20 106/60 (75) Laboratory Tests Test 12/27/18 04:00 White Blood Count 10.2 K/UL (4.8-10.8) Red Blood Count 4.15 M/UL (4.70-6.10) L Hemoglobin 11.5 G/DL (14.2-18.0) L Hematocrit 37.2 % (42.0-52.0) L Mean Corpuscular Volume 89 FL (80-99) Mean Corpuscular Hemoglobin 27.6 PG (27.0-31.0) Mean Corpuscular Hemoglobin Concent 30.9 G/DL (32.0-36.0) L Red Cell Distribution Width 15.2 % (11.6-14.8) H Platelet Count 156 K/UL (150-450) Mean Platelet Volume 6.7 FL (6.5-10.1) Neutrophils (%) (Auto) 39.7 % (45.0-75.0) L Lymphocytes (%) (Auto) 52.4 % (20.0-45.0) H Monocytes (%) (Auto) 5.3 % (1.0-10.0) Eosinophils (%) (Auto) 0.8 % (0.0-3.0) Basophils (%) (Auto) 1.9 % (0.0-2.0) Sodium Level 146 MMOL/L (136-145) H Potassium Level 3.7 MMOL/L (3.5-5.1) Chloride Level 113 MMOL/L (98-107) H Carbon Dioxide Level 27 MMOL/L (21-32) Anion Gap 6 mmol/L (5-15) Blood Urea Nitrogen 18 mg/dL (7-18) Creatinine 0.7 MG/DL (0.55-1.30) Estimat Glomerular Filtration Rate > 60 mL/min (>60) Glucose Level 111 MG/DL (74-106) H Calcium Level 8.2 MG/DL (8.5-10.1) L Phosphorus Level 2.7 MG/DL (2.5-4.9) Magnesium Level 2.0 MG/DL (1.8-2.4) Total Bilirubin 0.4 MG/DL (0.2-1.0) Aspartate Amino Transf (AST/SGOT) 35 U/L (15-37) Alanine Aminotransferase (ALT/SGPT) 69 U/L (12-78) Alkaline Phosphatase 75 U/L (46-116) Total Protein 7.4 G/DL (6.4-8.2) Albumin 1.8 G/DL (3.4-5.0) L Globulin 5.6 g/dL Albumin/Globulin Ratio 0.3 (1.0-2.7) L Intake and Output 12/26/18 12/27/18 19:00 07:00 Intake Total 2065.0 ml 1832.5 ml Output Total 850 ml 300 ml Balance 1215.0 ml 1532.5 ml Intake Free Water 600 ml 450 ml IV Total 565.0 ml 832.5 ml Tube Feeding 900 ml 550 ml Output Urine Total 850 ml 300 ml # Bowel Movements 1 2 Objective General: No acute distress, awake and responsive. HEENT: NCAT, sclera anicteric, PERRL, EOMI. Neck: Supple, no significant jugular venous distention, Lungs: Fair inspiratory effort, clear to auscultation bilaterally, no Wheeze or Rales. Heart: Regular rate and rhythm, normal S1/S2, no murmurs Abdomen: soft, nontender, nondistended. Normoactive bowel sounds, + PEG. Extremities: Bilateral LE's AKA, Left stump tenderness with dressing. Neuro: awake, limited, Right side weakness, Skin: warm, no rash. Assessment/Plan Assessment/Plan 1. Acute Respiratory distress. 2. Shortness of breath. 3. Leukocytosis. 4. Probable sepsis. 5. Diabetes type 2. 6. Hypertension. 7. Cerebrovascular disease. 8. Dysphagia. 9. Alzheimer's dementia. 10. Urinary tract infection=Proteus Mirabilis 11. Hypernatremia TREATMENT: 1. Respiratory distress/shortness of breath. A Pulmonary consultation has been obtained with Dr. Jaylin Dickson. An initial chest x-ray is reported as no acute disease. We will follow recommendation of Pulmonary. 2. Urinary tract infection. Initial urine showed wbc too numerous to count. A urine culture is pending. Continue ceftriaxone per ID-Dr Connolly 3. Probable sepsis. As above, the patient has been started on vancomycin and cefepime. Urine and blood cultures are pending. 4. Diabetes type 2. NovoLog sliding scale has been instituted. 5. Hypertension. The patient is currently hypotensive. 6. Cerebrovascular disease. Continue Plavix and aspirin as above. 7. Dysphagia. Continue tube feeds as above. 8. Alzheimer's dementia. 9. Continue D5W for hypernatremia DC planning to SNF with hospice. Yannick Marshall MD Dec 27, 2018 13:49
--- NOTE | 2018-12-27 15:00 | NUR ---
*-* INSURANCE *-* ALL CLINICALS AND REVIEW HAVE BEEN FAXED TO: IPA: [id number] P: [phone] F: [phone] (FAX CLINICALS)
--- NOTE | 2018-12-27 15:19 | NUR ---
NURSE NOTES: Report given to SARAH Edwards from [facility]
--- NOTE | 2018-12-27 15:44 | Surgery Progress Note ---
Surgery Progress Note Subjective Symptoms: improved Objective Last 24 Hour Vital Signs Date Time Temp Pulse Resp B/P (MAP) Pulse Ox O2 Delivery O2 Flow Rate FiO2 12/27/18 12:00 Nasal Cannula 2.0 12/27/18 12:00 108 12/27/18 12:00 98.1 99 24 102/98 (99) 97 12/27/18 11:54 99 Room Air 21 12/27/18 08:00 98.8 90 20 106/60 (75) 99 12/27/18 08:00 Nasal Cannula 2.0 12/27/18 08:00 86 12/27/18 04:00 97.2 95 22 108/59 (75) 98 12/27/18 04:00 Nasal Cannula 2.0 12/27/18 03:33 102 12/27/18 00:00 Nasal Cannula 2.0 12/27/18 00:00 97.7 92 28 106/60 (75) 96 12/26/18 23:33 92 12/26/18 20:00 Nasal Cannula 3.0 12/26/18 20:00 97.5 66 22 96/55 (69) 98 12/26/18 19:45 97 Room Air 21 12/26/18 19:31 96 12/26/18 16:00 98 12/26/18 16:00 Nasal Cannula 3.0 12/26/18 16:00 97.7 91 20 113/58 (76) 96 I&O Intake and Output 12/26/18 12/27/18 19:00 07:00 Intake Total 2065.0 ml 1832.5 ml Output Total 850 ml 300 ml Balance 1215.0 ml 1532.5 ml Intake Free Water 600 ml 450 ml IV Total 565.0 ml 832.5 ml Tube Feeding 900 ml 550 ml Output Urine Total 850 ml 300 ml # Bowel Movements 1 2 Dressing: saturated Wound: clean Cardiovascular: RSR Respiratory: clear Abdomen: soft, non-tender, present bowel sounds Extremities: no cyanosis Laboratory Tests Test 12/27/18 04:00 White Blood Count 10.2 K/UL (4.8-10.8) Red Blood Count 4.15 M/UL (4.70-6.10) L Hemoglobin 11.5 G/DL (14.2-18.0) L Hematocrit 37.2 % (42.0-52.0) L Mean Corpuscular Volume 89 FL (80-99) Mean Corpuscular Hemoglobin 27.6 PG (27.0-31.0) Mean Corpuscular Hemoglobin Concent 30.9 G/DL (32.0-36.0) L Red Cell Distribution Width 15.2 % (11.6-14.8) H Platelet Count 156 K/UL (150-450) Mean Platelet Volume 6.7 FL (6.5-10.1) Neutrophils (%) (Auto) 39.7 % (45.0-75.0) L Lymphocytes (%) (Auto) 52.4 % (20.0-45.0) H Monocytes (%) (Auto) 5.3 % (1.0-10.0) Eosinophils (%) (Auto) 0.8 % (0.0-3.0) Basophils (%) (Auto) 1.9 % (0.0-2.0) Sodium Level 146 MMOL/L (136-145) H Potassium Level 3.7 MMOL/L (3.5-5.1) Chloride Level 113 MMOL/L (98-107) H Carbon Dioxide Level 27 MMOL/L (21-32) Anion Gap 6 mmol/L (5-15) Blood Urea Nitrogen 18 mg/dL (7-18) Creatinine 0.7 MG/DL (0.55-1.30) Estimat Glomerular Filtration Rate > 60 mL/min (>60) Glucose Level 111 MG/DL (74-106) H Calcium Level 8.2 MG/DL (8.5-10.1) L Phosphorus Level 2.7 MG/DL (2.5-4.9) Magnesium Level 2.0 MG/DL (1.8-2.4) Total Bilirubin 0.4 MG/DL (0.2-1.0) Aspartate Amino Transf (AST/SGOT) 35 U/L (15-37) Alanine Aminotransferase (ALT/SGPT) 69 U/L (12-78) Alkaline Phosphatase 75 U/L (46-116) Total Protein 7.4 G/DL (6.4-8.2) Albumin 1.8 G/DL (3.4-5.0) L Globulin 5.6 g/dL Albumin/Globulin Ratio 0.3 (1.0-2.7) L Plan Problems: (1) Acute encephalopathy (2) Urinary tract infection (3) Encephalopathy (4) Severe sepsis (5) CVA (cerebral vascular accident) (6) Feeding by G-tube Assessment & Plan: DAILY ESTIMATED NEEDS: Needs based on Wounds, sepsis/ 54.2kg 25-30 kcals/kg 2425-5481 total kcals 1.25-2 g protein/kg 67-108 g total protein 25-30 mL/kg 5030-0778 total fluid mLs NUTRITION DIAGNOSIS: * Swallowing difficulty R/T dysphagia as evidenced by pt is PEG dep. * Increased kcal/prot needs R/T wound healing as evidenced by admitted w/ sacral and lt stump wounds, pending evaluation. * Altered nutrition related lab values R/T dehydration, clinical condition as evidenced by elev Na (160), elev BUN (42). CURRENT TF:Glucerna 1.5 @ 50ml/hr x 24 hrs ENTERAL NUTRITION RECOMMENDATIONS: Glucerna 1.2 @ 55ml/hr x 24 hrs to provide 1320ml, 1584kcal, 79g prot, 1062ml free water * Rec TF CHANGE Glucerna 1.2 for increased free water * Initiate Glucerna 1.2 @ 35ml/hr x 6 hrs, advance 10ml q 4-6 hrs as tolerated to goal rate * HOB over 30 degrees/ water flush per MD ADDITIONAL RECOMMENDATIONS: 1) CALIBRATED bedscale wt, weekly wt monitoring 2) Wound healing: add Vit C 500mg QD : add Wally 1pkt BID 3) Monitor lytes, replete as needed (low K, phos, mag) (7) Alzheimer's dementia (8) Hypernatremia (9) ATN (acute tubular necrosis) (10) PVD (peripheral vascular disease) (11) Dehydration (12) Hypernatremia (13) Iron deficiency anemia (14) Decubitus skin ulcer Assessment & Plan: Pt presented on admission with Bilat AKA. Stable dry eschar without erythema or elevation in skin temp noted to Base of L AKA stump. (L)1cm x (W)0.8cm. Unstageable pressure injury noted to sacrum. Base of wound is necrotic , partially opened with surrounding maroon borders that are fluctuant. Pt exhibited agitation when area minimally palpated. (L)4cm x (W)5.5cm. Non- blanchable erythema periwound. Scrotal erythema noted. Tx.Plan: Cleanse Sacrum with Saline. Apply Therahoney. Apply Triad paste periwound. Cover with Optifoam drsg daily and prn. Cleanse wound L AKA with Saline. Apply Therahoney. Apply Cavilon Skin Barrier periwound. Cover with Optifoam every 3 days and prn. Apply Moisture Barrier paste to scrotal and groin areas with each incontinence care. APM/KEZIA Mattress overlay. Reposition at least every 2hours or as tolerated. (15) Renal failure (ARF), acute on chronic (16) Sepsis (17) UTI (urinary tract infection) (18) Abnormal LFTs Assessment & Plan: Patient presents with sepsis, leukocytosis, tachycardia, change in mental status, abnormal LFTs, abnormal labs. - improved Trend labs IV fluids IV antibiotics as per infectious disease We will follow with recommendations as work-up continues Emiliano Martinez Dec 27, 2018 15:44
[2018-12-27 16:00] VITALS: BP 110/88
--- NOTE | 2018-12-27 16:20 | NUR ---
HAND-OFF: Report given to EMT personnel. Pt discharged in stable condition via ambulance bed and O2 tank on 2L NC. Tele box removed and returned to tele floor. Pt has no belongings. Pt d/c w/ PICC line per Dr. Rolando Lanier.
[2018-12-27] MEDS ORDERED: Tubing IV Secondary IV ONE (16:29)
[2018-12-27] MEDS ORDERED: NS 275ml ONE (16:29)
--- NOTE | 2018-12-27 17:51 | Pulmonology Progress Note ---
Assessment/Plan Problems: (1) Acute encephalopathy (2) Sepsis (3) ATN (acute tubular necrosis) (4) UTI (urinary tract infection) (5) Alzheimer's dementia (6) Decubitus skin ulcer (7) CVA (cerebral vascular accident) (8) Feeding by G-tube (9) S/P AKA (above knee amputation) bilateral Assessment/Plan improving VS stable iv fluids, decrease to 75 cc/hour check K and bun continue Gtube feeding dc planning Subjective ROS Limited/Unobtainable: No Constitutional: Reports: no symptoms HEENT: Repors: no symptoms Respiratory: Reports: no symptoms Allergies: Coded Allergies: No Known Allergies (Unverified , 08/10/18) Objective Last 24 Hour Vital Signs Date Time Temp Pulse Resp B/P (MAP) Pulse Ox O2 Delivery O2 Flow Rate FiO2 12/27/18 16:00 98.4 102 20 110/88 (95) 99 12/27/18 16:00 88 12/27/18 16:00 Nasal Cannula 2.0 12/27/18 12:00 Nasal Cannula 2.0 12/27/18 12:00 108 12/27/18 12:00 98.1 99 24 102/98 (99) 97 12/27/18 11:54 99 Room Air 21 12/27/18 08:00 98.8 90 20 106/60 (75) 99 12/27/18 08:00 Nasal Cannula 2.0 12/27/18 08:00 86 12/27/18 04:00 97.2 95 22 108/59 (75) 98 12/27/18 04:00 Nasal Cannula 2.0 12/27/18 03:33 102 12/27/18 00:00 Nasal Cannula 2.0 12/27/18 00:00 97.7 92 28 106/60 (75) 96 12/26/18 23:33 92 12/26/18 20:00 Nasal Cannula 3.0 12/26/18 20:00 97.5 66 22 96/55 (69) 98 12/26/18 19:45 97 Room Air 21 12/26/18 19:31 96 Intake and Output 12/26/18 12/27/18 19:00 07:00 Intake Total 2065.0 ml 1932.5 ml Output Total 850 ml 300 ml Balance 1215.0 ml 1632.5 ml Intake Free Water 600 ml 500 ml IV Total 565.0 ml 832.5 ml Tube Feeding 900 ml 600 ml Output Urine Total 850 ml 300 ml # Bowel Movements 1 2 General Appearance: WD/WN HEENT: normocephalic, atraumatic Respiratory/Chest: chest wall non-tender, lungs clear Cardiovascular: normal rate, regular rhythm Abdomen: normal bowel sounds, no organomegaly Neurologic/Psychiatric: orthopedic shoe maker II-XII grossly normal Laboratory Tests 12/27/18 04:00: White Blood Count 10.2, Red Blood Count 4.15L, Hemoglobin 11.5L, Hematocrit 37.2L, Mean Corpuscular Volume 89, Mean Corpuscular Hemoglobin 27.6, Mean Corpuscular Hemoglobin Concent 30.9L, Red Cell Distribution Width 15.2H, Platelet Count 156, Mean Platelet Volume 6.7, Neutrophils (%) (Auto) 39.7L, Lymphocytes (%) (Auto) 52.4H, Monocytes (%) (Auto) 5.3, Eosinophils (%) (Auto) 0.8, Basophils (%) (Auto) 1.9, Sodium Level 146H, Potassium Level 3.7, Chloride Level 113H, Carbon Dioxide Level 27, Anion Gap 6, Blood Urea Nitrogen 18, Creatinine 0.7, Estimat Glomerular Filtration Rate > 60, Glucose Level 111H, Calcium Level 8.2L, Phosphorus Level 2.7, Magnesium Level 2.0, Total Bilirubin 0.4, Aspartate Amino Transf (AST/SGOT) 35, Alanine Aminotransferase (ALT/SGPT) 69, Alkaline Phosphatase 75, Total Protein 7.4, Albumin 1.8L, Globulin 5.6, Albumin/Globulin Ratio 0.3L Jaylin Dickson MD Dec 27, 2018 17:51
--- NOTE | 2018-12-28 15:25 | Cardiology Report ---
APPROVED REPORT EKG Measurement Heart [id number] Sinus tachycardia with frequent PACs and PVCs or fusion complexes T wave abnormality, consider lateral ischemia Abnormal ECG
--- NOTE | 2018-12-29 07:59 | Discharge Summary ---
Discharge Summary Discharge Summary _ DATE OF ADMISSION: 12/23/2018 DATE OF DISCHARGE: 12/27/2018 DISCHARGED BY: Dr. Yannick Marshall CONSULTANTS: Dr. Jaylin Connolly BRIEF HOSPITAL COURSE: Patient is a 68-year-old -[place] male, who presented with chief complaint of respiratory distress. Patient is a resident of [facility]. Patient was nonverbal at baseline patient she has a G-tube. He was noted to have increased shortness of breath. He was noted to be less responsive than usual. He was normally oriented x1 and was somewhat responsive. POLST's was full code. He was then transferred to [facility] emergency room for evaluation. He has medical history significant for type 2 diabetes, hypertension, cerebrovascular disease, dysphagia status post PEG, Alzheimer's dementia, history of alcohol abuse and history of heroine abuse. On evaluation at ED, blood pressure was 98/58, heart rate 76. He was saturating 92% on 4 L nasal. He was febrile, rectal temperature was 100.4 F. Blood work showed WBC elevated to 23. Hemoglobin and hematocrit were stable. Sodium was elevated to 157, potassium 3.4, chloride 121. Phosphorus 2.4. BUN was 47, creatinine 0.9. Glucose 143. LFTs were elevated. Troponin was negative, proBNP > 2000. ABG done showed pH of 7.4, CO2 33, bicarb 20. Lactic acid was elevated to 2.3. Urinalysis showed +3 protein, +4 blood, positive nitrite, +3 leukocyte esterase, 15-20 urine RBC and many to count urine WBC. EKG showed normal sinus rhythm with multiple premature ventricular beats. QTc noted to be prolonged at 554. Chest x-ray showed persistent elevation left hemidiaphragm and left basilar atelectasis. Lungs and pleural space otherwise clear. No definite acute process. He was given IV hydration. He was started empirically on IV antibiotics. He was given rectal acetaminophen. He was then admitted for evaluation of respiratory distress/shortness of breath, leukocytosis, probable sepsis. He was admitted to stepdown unit. He was continued on O2 support. He was placed on nebulizer therapy. Surgical Garment Assembly Supervisor was consulted. ID was consulted. He was continued empirically on IV vancomycin and cefepime. Flagyl was discontinued. Patient was hard stick. PICC line was inserted to the left upper extremity. Patient came in with wounds on admission. Surgical consult was done. Patient had bilateral AKA. He had a stable dry eschar without erythema or elevation in skin noted to the base of the left AKA stump. He had an unstageable pressure injury to the sacrum and scrotal erythema noted. He was provided with local wound care. Advised moisture barrier to scrotal area and groin. He was placed on APM/KEZIA mattress overlay with frequent repositioning and offloading. Nutrition was optimized to aid with routine healing. Urine culture showed growth of Proteus mirabilis. Blood culture did not isolate any growth. IV vancomycin was discontinued. Cefepime was switched to ceftriaxone. Social service was consulted to discuss end-of-life decision-making with family. Family was notified. Leukocytosis resolved. Electrolytes improved. LFTs normalized. He was eventually discharged back to [facility] to complete antibiotic treatment. FINAL DIAGNOSES: Sepsis likely secondary to Proteus UTI Acute on chronic encephalopathy Lactic acidosis Advanced dementia Peripheral vascular disease CVA with dysphagia status post G-tube Bilateral AKA DM type II Hypertension Unstageable pressure injury to the sacrum, present on admission DISPOSITION: Patient was discharged to a SNF. I have been assigned to complete a discharge summary on this account, I was not involved with the patient's management.--AMARILIS Davidson Jacqueline Robles NP Dec 29, 2018 07:59
== END 2018-12-27 16:30 | DRG 871 ==
LOC: EDBD 06:37 → EMR 07:14 → EDBEDREQ 07:36 → 2W 08:39 → EDBEDREQ 09:33
PROC: 02HV33Z Insertion of Infusion Device into Superior Vena Cava, Percutaneous Approach (ICD-10-PCS; principal; 2018-12-24)
DX: A41.9 Sepsis, unspecified organism (principal); N17.0 Acute kidney failure with tubular necrosis; N39.0 Urinary tract infection, site not specified; E87.0 Hyperosmolality and hypernatremia; Z43.1 Encounter for attention to gastrostomy; G93.40 Encephalopathy, unspecified; L89.150 Pressure ulcer of sacral region, unstageable; R65.20 Severe sepsis without septic shock; G30.9 Alzheimer's disease, unspecified; F02.80 Dementia in other diseases classified elsewhere, unspecified severity, without behavioral disturbance, psychotic disturbance, mood disturbance, and anxiety; B96.4 Proteus (mirabilis) (morganii) as the cause of diseases classified elsewhere; I73.9 Peripheral vascular disease, unspecified; I69.391 Dysphagia following cerebral infarction; R13.10 Dysphagia, unspecified; Z89.612 Acquired absence of left leg above knee; Z89.611 Acquired absence of right leg above knee; E11.9 Type 2 diabetes mellitus without complications; I10 Essential (primary) hypertension; F10.11 Alcohol abuse, in remission; F11.10 Opioid abuse, uncomplicated; Z79.02 Long term (current) use of antithrombotics/antiplatelets; Z79.82 Long term (current) use of aspirin
CPT/HCPCS: 36415; 36569; 36600; 71045; 76937; 80053; 81001; 81003; 82436; 82550; 82553; 82803; 82962; 83605; 83690; 83735; 83880; 84100; 84133; 84300; 84439; 84484; 84550; 85007; 85025; 85651; 86140; 86850; 86900; 86901; 87040; 87081; 87086; 87181; 89050; 93005; 94640; 94664; 96361; 96365; 99291; J1815; J7620; J8499

== ENCOUNTER 2019-03-07 05:45 | Inpatient (IN) | payer OTHER ==
[~2019-03-07] VITALS: Ht 106.7 cm; Wt 64.0 kg
[2019-03-07] VITALS (20 sets, daily range): BP systolic 77–112; BP diastolic 44–85
[~2019-03-07 05:45] MED LIST changes: +ZINC SULFATE220 M1 GT
[2019-03-07] MEDS ORDERED: Lidocaine 1% Plain 30 ml INJ ONE (05:58)
--- NOTE | 2019-03-07 06:10 | NUR ---
ED Nurse Note: Patient was BIBA from [facility] due to SOB. Per staff patient more altered today than usualy. Patient presented anxious, with labored breathing, hypotensive, hypothermic. AAO 4, VS unstable. Patient has 1 preassure ulcer on his sacral area. Folley catheter was placed 16 F.
[2019-03-07 06:17] LABS: BASOPHILS % (AUTO) 0.3 % (0.0-2.0); HEMATOCRIT 46.7 % (42.0-52.0); HEMOGLOBIN 14.2 G/DL (14.2-18.0); LYMPHOCYTES % (AUTO) 17.5 % (20.0-45.0); MEAN CORPUSCULAR VOLUME 93 FL (80-99); MONOCYTES % (AUTO) 6.5 % (1.0-10.0); NEUTROPHILS % (AUTO) 75.7 % (45.0-75.0); PLATELET COUNT 185 K/UL (150-450); RED BLOOD COUNT 5.04 M/UL (4.70-6.10); RED CELL DISTRIBUTION WIDTH 15.8 % (11.6-14.8); WHITE BLOOD COUNT 13.1 K/UL (4.8-10.8)
--- NOTE | 2019-03-07 06:28 | Emergency Room Report ---
History of Present Illness General Chief Complaint: Dyspnea/Respdistress Source: Medical Record (Marcelina Fuller DO) Present Illness HPI Patient was brought in by paramedics with reports of low blood pressure and tachycardia upon arrival the patient is found to be hypotensive and tachycardic patient has multiple comorbidities and Has bilateral gwbng-bjr-jhul amputations unknown regarding recent fevers There was no reports of vomiting or diarrhea patient himself is nonverbal this does limit the history of present illness significantly (Marcelina Fuller DO) Allergies: Coded Allergies: No Known Allergies (Unverified , 03/07/19) Patient History Limited by: medical condition Past Medical History: see triage record Reviewed Nursing Documentation: PMH: Agreed; PSxH: Agreed (Marcelina Fuller DO) Nursing Documentation-PMH Hx Hypertension: Yes Hx Diabetes: Yes Hx Cancer: No Hx Cerebrovascular Accident: Yes - cerebral infarction (Marcelina Fuller DO) Review of Systems All Other Systems: limited - Other than the ones mentioned in the history of present illness all others are reviewed however they do stay limited due to the patient's mental status (Marcelina Fuller DO) Physical Exam Vital Signs Date Time Temp Pulse Resp B/P (MAP) Pulse Ox O2 Delivery O2 Flow Rate FiO2 03/07/19 05:50 98.1 123 50 86/44 (58) 90 Room Air Sp02 EP Interpretation: reviewed, normal General Appearance: moderate distress - Appears diaphoretic and is tachycardic Head: normocephalic, atraumatic Eyes: bilateral eye PERRL, bilateral eye EOMI ENT: dry mucus membranes Neck: supple Respiratory: no retraction, no accessory muscle use, crackles - Bilaterally Cardiovascular #1: tachycardia Gastrointestinal: non tender, soft, other - Feeding tube in place Musculoskeletal: other - Bilateral [id number] amputations does not follow commands, right upper extremity paralysis Neurologic: other - Patient has eyes open however does not follow commands is not verbal Psychiatric: normal inspection Skin: other - Scars formations bilateral femoral area Lymphatic: no adenopathy (Marcelina Fuller DO) Procedures Critical Care Time Critical Care Time 50 minutes for multiple re-evaluations initial critical presentation concern for lethargy pathology not including any procedural time (Marcelina Fuller DO) Critical Care Time Patient had a critical medical condition which untreated could potentially result in life or limb threatening injury. Total critical care time excluding procedures approximately 35 minutes. (Ralph De Anda MD) Central Line Central Line : Consent: Emergent Central Line Lumen: triple Maximal Sterile Barrier Tech: yes cap, yes mask, yes sterile gown, yes sterile gloves, yes large sterile sheet, yes hand hygiene, yes chlorhexidine prep Central Line Postion: subclavian (R), femoral (R) Anesthesia: Lidocaine cc's of anesthesia: 5 Attempts: Other Patient Tolerated: Well Progress Initially the right femoral region was prepped and cleansed, total of 3 cc of 1 % lidocaine were used for local sedation, we were able to cannulate the femoral vein with appropriate dark blood cannulated, however unable to feed the guidewire as there appears to be significant chronic changes. This attempt was aborted after the second attempt The right subclavian vein was identified cleansed and prepped, again after cannulation of the vein with dark blood on drawback, I was again unable to feed the guidewire. This attempt was also aborted. Dr. De Anda will attempt access please refer to his note for full specific X-ray imaging is being done as well (Marcelina Fuller DO) Central Line : Central Line Lumen: triple Maximal Sterile Barrier Tech: yes cap, yes mask, yes sterile gown, yes sterile gloves, yes large sterile sheet, yes hand hygiene, yes chlorhexidine prep No Max Barrier Tech Because: emergency insertion Central Line Postion: subclavian (R) Anesthesia: local Complications: none Central Line Post Position: sutured, good blood return, position confirmed w / CXR Attempts: One Patient Tolerated: Well Complications: None (Ralph De Anda MD) Medical Decision Making Diagnostic Impression: Primary Impression: Dyspnea Additional Impressions: Sepsis Dehydration S/P AKA (above knee amputation) bilateral Hypernatremia Metabolic acidosis ER Course Patient presents in critical fashion hypotensive and tachycardic No peripheral IV access is available patient had attempt of central line in the right Femoral in the subclavian as noted X-ray imaging will follow after Dr. De Anda attempt please refer to the note for the follow-up and further interventions patient requiring aggressive hydration antibiotics and further inpatient care (Marcelina Fuller DO) ER Course . Patient endorsed me by Dr. Fuller pending laboratory testing. Patient was noted to have hypotension as well as increased difficulty with respirations. Chest x-ray one view interpreted by me showed adequate line placement with a left lower lung infiltrate there is no evident pneumothorax and surgical clips to the right side of the chest aorta is calcific. Patient be given IV fluids as well as IV antibiotics. He was noted to be hypernatremic. EKG showed irregular rhythm which appears to be multifocal atrial tachycardia patient was noted to be initially hypotensive. A central venous catheter was placed emergently due to lack of IV access. Patient is reportedly a full code. Dr. Yannick Marshall was contacted for inpatient management (Ralph De Anda MD) Rhythm Strip Diag. Results EP Interpretation: yes Rate: 121 Rhythm: no PVC's, no ectopy, other - Sinus tach (Marcelina Fuller DO) Last Vital Signs Date Time Temp Pulse Resp B/P (MAP) Pulse Ox O2 Delivery O2 Flow Rate FiO2 03/07/19 05:50 98.1 123 50 86/44 (58) 90 Room Air (Marcelina Fuller DO) Disposition: ADMITTED INPATIENT Condition: Critical Referrals: Yannick Marshall MD (PCP) Marcelina Fuller DO Mar 07, 2019 06:28 Ralph De Anda MD Mar 07, 2019 06:54
[2019-03-07 06:44] LABS: ALANINE AMINOTRANSFERASE 28 U/L (12-78); ALBUMIN 2.3 G/DL (3.4-5.0); ALBUMIN/GLOBULIN RATIO 0.4 (1.0-2.7); ALKALINE PHOSPHATASE 99 U/L (46-116); ANION GAP 13 mmol/L (5-15); ASPARTATE AMINO TRANSFERASE 24 U/L (15-37); BILIRUBIN,TOTAL 0.5 MG/DL (0.2-1.0); BLOOD UREA NITROGEN 118 mg/dL (7-18); CALCIUM 8.7 MG/DL (8.5-10.1); CARBON DIOXIDE 25 MMOL/L (21-32); CHLORIDE 127 MMOL/L (98-107); CKMB 0.5 NG/ML (0.0-3.6); CREATINE KINASE 58 U/L (26-308); CREATININE 1.6 MG/DL (0.55-1.30); POTASSIUM 3.3 MMOL/L (3.5-5.1); SODIUM 165 MMOL/L (136-145)
[2019-03-07] MEDS ORDERED: Vancomycin 1 GM in NS 275 ML IVPB ONE (06:45)
[2019-03-07] MEDS ORDERED: Piperacillin/Tazobactam 3.375 GM in NS 110 ML IVPB ONE (06:45)
--- NOTE | 2019-03-07 07:05 | NUR ---
ED Nurse Note: Received patient in bed, patient is on a quality assurance monitor body, see vitals sign flowsheet. patient is awake, alert x1, at this time, patient is able to follow command to turn. bilateral AKA noted. right subclavian tlc noted, dressing intact, dry, IVF infusing as ordered. lactic reflex specimen sent to lab.
[2019-03-07 07:25] LABS: APPEARANCE,URINE CLOUDY; BILIRUBIN, URINE NEGATIVE (NEGATIVE); GLUCOSE, URINE (UA) NEGATIVE (NEGATIVE); KETONES,URINE NEGATIVE (NEGATIVE); LEUKOCYTE ESTERASE ,URINE 3+ (NEGATIVE); NITRITE,URINE NEGATIVE (NEGATIVE); PH,URINE 7 (4.5-8.0); PROTEIN,URINE 3+ (NEGATIVE); UROBILINOGEN,URINE 4 MG/DL (0.0-1.0)
[2019-03-07 07:27] LABS: COLOR,URINE YELLOW
[2019-03-07] MEDS ORDERED: Albuterol/Ipratropium 3ml neb HHN PRN (07:30)
[2019-03-07] MEDS ORDERED: Morphine Sulfate 4mg/ml Inj (IV USE ONLY) IVP PRN ×2 (07:30→09:00)
[2019-03-07] MEDS ORDERED: Miralax 17gm pkt ORAL PRN (07:30)
--- NOTE | 2019-03-07 08:01 | NUR ---
ED Nurse Note: report given to Rhonda SMITH, endorsed all plan of care to Rhonda SMITH.
--- NOTE | 2019-03-07 08:05 | NUR ---
ED Nurse Note: patient transferred to ICU on ACLS protocol.
--- NOTE | 2019-03-07 08:30 | NUR ---
NURSE NOTES: Report received from Leola SMITH. Pt awake, alert and oriented x 1, pt non-verbal, follows simple commands. Pt ST 100s on monitor. Pt on 2 L O2 via simple mask, saturating 100%. GT noted and intact, clamped for now. Pelayo noted and intact with clear yellow urine for gravity. Bilateral AKA noted. Stage II on left stump and sacral area, pictures taken and optifoam applied. Right subclavian central lines noted and intact. Safety measures in place with bed locked and in lowest position, side rails x3 up and bed alarm on. Will continue to monitor and continue plan of care.
[2019-03-07] MEDS ORDERED: Heparin 5000 units/ml inj SUBQ SCH (09:00)
[2019-03-07] MEDS ORDERED: Pantoprazole Inj IVP SCH ×2 (09:00)
--- NOTE | 2019-03-07 09:40 | NUR ---
Sera ( Sister) called from [place]- updated with patient's condition- aware patient admitted to ICU
--- NOTE | 2019-03-07 10:00 | NUR ---
NURSE NOTES: Echo techs here to do echo. Dr Cagle here to see pt. Will continue to monitor.
[2019-03-07] MEDS ORDERED: Amikacin Rx to dose MISC PRN (10:30)
[2019-03-07] MEDS: Heparin 5000 units/ml inj SUBQ SCH ×2 (10:43→20:34)
--- NOTE | 2019-03-07 10:52 | NUR ---
RD ASSESSMENT & RECOMMENDATIONS SEE CARE ACTIVITY FOR COMPLETE ASSESSMENT DAILY ESTIMATED NEEDS: Needs based on Sepsis, wound/ 51.3 kg 25-35 kcals/kg 1283- 1796 total kcals 1.25-2 g protein/kg 64-103 g total protein 25-30 mL/kg 8202-8327 total fluid mLs NUTRITION DIAGNOSIS: * Increased kcal and pro needs r/t sepsis and wound healing AEB pt w/ elev WBC (13.1), BG (205), elev respiratory rate (25), elev pulse (105), low BP, w/ sacral wound (stage 2 per RN). * Swallowing difficulty R/T dysphagia as evidenced by pt is PEG dep. * Altered nutrition related lab values R/T dehydration as evidenced by elev Na (165*), elev BUN (118). CURRENT TF:NPO ENTERAL NUTRITION RECOMMENDATIONS: Glucerna 1.2 @ 50ml/hr x 24 hrs to provide 1200ml, 1440kcal, 72g prot, 966ml free water * As medically able, with hemodynamic stability, rec to start GT feeds of Glucerna 1.2 @20ml/hr for 6 hrs. * Advance as tolerated 10ml/hr q4-6 hrs to goal * HOB over 30 degrees/ water flush per MD --- Trophic feeds w/ prolonged NPO status on pressor support to maintain gut integrity ADDITIONAL RECOMMENDATIONS: 1) CALIBRATED bedscale wt, weekly wt monitoring ([facility] WT: 113#) 2) Monitor lytes, replete as needed (K 3.3) W/ D5 hydration (Na 165*) rec accuchecks + niss for coverage 3) WOUND CARE: w/ GT feeds, add BENOIT BID + Vit C 250mg daily F/up w/ WC eval 4) F/up w/ H&P
--- NOTE | 2019-03-07 10:53 | Pulmonolgy Critical Care Note ---
Critical Care - Asmt/Plan Problems: (1) Severe sepsis (2) Renal failure (ARF), acute on chronic (3) Alzheimer's dementia (4) Feeding by G-tube (5) CVA (cerebral vascular accident) (6) S/P AKA (above knee amputation) bilateral (7) Decubitus skin ulcer Respiratory: monitor respiratory rate, adjust FIO2, CXR - Left lower lobe pneumonia Cardiac: continue to monitor HR/BP Renal: F/U I&O, keep IV fluid, check electrolytes Infectious Disease: check cultures, continue antibiotics Gastrointestinal: continue feedings/current rate Endocrine: monitor blood sugar, continue sliding scale insulin Hematologic: transfuse if hgb<8.5 Neurologic: keep patient comfortable Affect: PRN ativan Prophylaxis: Protonix Disposition: keep in ICU Notes Reviewed: detailer Discussed with: nurses, consultants, casey saw operatormanager architecture - Objective Last 24 Hour Vital Signs Date Time Temp Pulse Resp B/P (MAP) Pulse Ox O2 Delivery O2 Flow Rate FiO2 03/07/19 10:39 84/51 03/07/19 09:00 102 25 84/51 100 Simple Mask 10.0 03/07/19 08:34 98.5 102 110/70 Nasal Cannula 10.0 03/07/19 08:33 Ambu-Bag 10.0 03/07/19 08:05 97.8 102 29 112/45 100 Simple Mask 10.0 03/07/19 08:01 97.8 102 29 112/45 100 Simple Mask 10.0 03/07/19 07:22 97.8 111 35 110/85 100 Simple Mask 10.0 03/07/19 06:10 123 50 Simple Mask 10.0 03/07/19 06:10 97.4 135 36 86/44 93 Simple Mask 10.0 03/07/19 05:50 98.1 123 50 86/44 (58) 90 Room Air Status: awake Condition: critical HEENT: atraumatic Neck: full ROM Lungs: clear Heart: HR/BP unstable Abdomen: soft, active bowel sounds Extremities: no C/C/E Micro: Microbiology Date/Time Source Procedure Growth Status 03/07/19 09:00 Rectum Received Critical Care - Subjective ROS Limited/Unobtainable: Yes Interval Events: 68-year-old male with advanced dementia, DM, bilatera AKA, chronic Gtube feeding , on the verge of life, brought in by ambulance with cc of Low BP He was less responsive than usual. Patient is normally oriented x1 and somewhat responsive. He was somewhat tachycardic in ER and had temperature to 99 degrees. Per patient's POLST is full code. Drips: Levophed I&O: Intake and Output 03/06/19 03/07/19 18:59 06:59 Output Total 200 ml Balance -200 ml Output Urine Total 200 ml Labs: Laboratory Tests Test 03/07/19 06:00 03/07/19 06:40 03/07/19 07:08 White Blood Count 13.1 K/UL (4.8-10.8) H Red Blood Count 5.04 M/UL (4.70-6.10) Hemoglobin 14.2 G/DL (14.2-18.0) Hematocrit 46.7 % (42.0-52.0) Mean Corpuscular Volume 93 FL (80-99) Mean Corpuscular Hemoglobin 28.2 PG (27.0-31.0) Mean Corpuscular Hemoglobin Concent 30.4 G/DL (32.0-36.0) L Red Cell Distribution Width 15.8 % (11.6-14.8) H Platelet Count 185 K/UL (150-450) Mean Platelet Volume 7.2 FL (6.5-10.1) Neutrophils (%) (Auto) 75.7 % (45.0-75.0) H Lymphocytes (%) (Auto) 17.5 % (20.0-45.0) L Monocytes (%) (Auto) 6.5 % (1.0-10.0) Eosinophils (%) (Auto) 0.0 % (0.0-3.0) Basophils (%) (Auto) 0.3 % (0.0-2.0) Sodium Level 165 MMOL/L (136-145) *H Potassium Level 3.3 MMOL/L (3.5-5.1) L Chloride Level 127 MMOL/L (98-107) H Carbon Dioxide Level 25 MMOL/L (21-32) Anion Gap 13 mmol/L (5-15) Blood Urea Nitrogen 118 mg/dL (7-18) H Creatinine 1.6 MG/DL (0.55-1.30) H Estimat Glomerular Filtration Rate 52.0 mL/min (>60) Glucose Level 205 MG/DL (74-106) H Lactic Acid Level 3.00 mmol/L (0.4-2.0) H 3.50 mmol/L (0.66-2.22) H Calcium Level 8.7 MG/DL (8.5-10.1) Total Bilirubin 0.5 MG/DL (0.2-1.0) Aspartate Amino Transf (AST/SGOT) 24 U/L (15-37) Alanine Aminotransferase (ALT/SGPT) 28 U/L (12-78) Alkaline Phosphatase 99 U/L (46-116) Total Creatine Kinase 58 U/L (26-308) Creatine Kinase MB 0.5 NG/ML (0.0-3.6) Creatine Kinase MB Relative Index 0.8 Troponin I 0.112 ng/mL (0.000-0.056) Pro-B-Type Natriuretic Peptide 2391 pg/mL (0-125) H Total Protein 8.7 G/DL (6.4-8.2) H Albumin 2.3 G/DL (3.4-5.0) L Globulin 6.4 g/dL Albumin/Globulin Ratio 0.4 (1.0-2.7) L Lipase 85 U/L (73-393) Urine Color Yellow Urine Appearance Cloudy Urine pH 7 (4.5-8.0) Urine Specific [place] 1.010 (1.005-1.035) Urine Protein 3+ (NEGATIVE) H Urine Glucose (UA) Negative (NEGATIVE) Urine Ketones Negative (NEGATIVE) Urine Blood 5+ (NEGATIVE) H Urine Nitrite Negative (NEGATIVE) Urine Bilirubin Negative (NEGATIVE) Urine Urobilinogen 4 MG/DL (0.0-1.0) H Urine Leukocyte Esterase 3+ (NEGATIVE) H Urine RBC 15-20 /HPF (0 - 0) H Urine WBC Tntc /HPF (0 - 0) H Urine Squamous Epithelial Cells Occasional /LPF Urine Amorphous Sediment Many /LPF (NONE) H Urine Bacteria Moderate /HPF (NONE) H Jaylin Dickson MD Mar 07, 2019 10:53
--- NOTE | 2019-03-07 10:58 | Diagnostic Imaging Report ---
Indication: Line placement Comparison: 03/07/2019 one hour earlier A single view chest radiograph was obtained. Findings: There is no Identified. There is a right subclavian central venous catheter again noted projected over the SVC. There is volume loss at the left lung base again noted unchanged. Left hemidiaphragm is elevated. Heart size is stable. No pneumothorax seen. IMPRESSION: No change from one hour earlier
--- NOTE | 2019-03-07 11:01 | Diagnostic Imaging Report ---
Indication: Dyspnea Comparison: 12/26/2018 A single view chest radiograph was obtained. Findings: Persistent elevation of the left hemidiaphragm again demonstrated with platelike atelectasis. Surgical clips in the right axilla noted. A right subclavian line has been placed with the tip projected over the SVC right atrial junction. No pneumothorax identified. IMPRESSION: Line placement. No pneumothorax.
[2019-03-07] MEDS ORDERED: Amikacin 350 MG in NS 110 ML IV SCH ×3 (11:15→16:00)
--- NOTE | 2019-03-07 11:27 | NUR ---
NURSE NOTES: Dr Dickson here to see pt. ordered 2 L bolus. Will continue to monitor.
[2019-03-07] MEDS ORDERED: Amikacin 750 MG in NS 110 ML IV SCH (12:00)
--- NOTE | 2019-03-07 12:02 | Consultation ---
History of Present Illness General Date patient seen: Mar 07, 2019 Chief Complaint: Dyspnea/Respdistress Present Illness HPI 68 y/o M with hx of HTN, advanced dementia, PVD, CVA, dysphagia s/p GT, Dm2, b/ l AKA, non verbal, [place] resident presented to ED on 03/07 with hypotension and tachycardia. No report of vomiting, diarrhea OF note, patient was admitted here on Late November- December 2018 for sepsis 2ry to UTI Allergies: Coded Allergies: No Known Allergies (Unverified , 03/07/19) Medication History Scheduled Allopurinol* (Allopurinol*), 100 MG GT DAILY Amino Acids/Protein Hydrolys (Pro-Stat Liquid), 30 ML GT TWICE A DAY, (Reported) Clopidogrel Bisulfate* (Plavix*), 75 MG ORAL DAILY, (Reported) Quetiapine Fumarate* (Seroquel*), 12.5 MG ORAL BID Zinc Sulfate (Zinc Sulfate*), 220 MG GT DAILY, (Reported) Scheduled PRN Acetaminophen* (Acetaminophen 325MG Tablet*), 500 MG GT Q4H PRN for Moderate Pain (Pain Scale 4-6), (Reported) Miscellaneous Medications Vit C/Ascorb Sod/Multivit-Min (Emergen-C 500 mg Chewable Tab), 500 MG GT, ( Reported) Patient History Healthcare decision maker Resuscitation status Full Code Advanced Directive on File Patient History Narrative Pmhx: as above Shx: reviewed Fhx: non contributory Review of Systems All Other Systems: negative except mentioned in HPI Physical Exam Physical Exam Narrative General Appearance: moderate distress - Appears diaphoretic and is tachycardic Head: normocephalic, atraumatic Eyes: bilateral eye PERRL, bilateral eye EOMI ENT: dry mucus membranes Neck: supple Respiratory: no retraction, no accessory muscle use, crackles - Bilaterally Cardiovascular: tachycardia Gastrointestinal: non tender, soft, other - Feeding tube in place Musculoskeletal: other - Bilateral kzuzl-hum-ohob amputations does not follow commands, right upper extremity paralysis Neurologic: other - Patient has eyes open however does not follow commands is not verbal Psychiatric: normal inspection Skin: other - Scars formations bilateral femoral area Last 24 Hour Vital Signs Date Time Temp Pulse Resp B/P (MAP) Pulse Ox O2 Delivery O2 Flow Rate FiO2 03/07/19 11:00 93 31 102/57 97 Simple Mask 10.0 03/07/19 10:39 84/51 03/07/19 10:00 96 31 77/50 96 Simple Mask 10.0 03/07/19 09:00 102 25 84/51 100 Simple Mask 10.0 03/07/19 08:34 98.5 102 110/70 Nasal Cannula 10.0 03/07/19 08:33 Ambu-Bag 10.0 03/07/19 08:05 97.8 102 29 112/45 100 Simple Mask 10.0 03/07/19 08:01 97.8 102 29 112/45 100 Simple Mask 10.0 03/07/19 07:22 97.8 111 35 110/85 100 Simple Mask 10.0 03/07/19 06:10 123 50 Simple Mask 10.0 03/07/19 06:10 97.4 135 36 86/44 93 Simple Mask 10.0 03/07/19 05:50 98.1 123 50 86/44 (58) 90 Room Air Intake and Output 03/06/19 03/07/19 18:59 06:59 Output Total 200 ml Balance -200 ml Output Urine Total 200 ml Laboratory Tests Test 03/07/19 06:00 03/07/19 06:40 03/07/19 07:08 White Blood Count 13.1 K/UL (4.8-10.8) H Red Blood Count 5.04 M/UL (4.70-6.10) Hemoglobin 14.2 G/DL (14.2-18.0) Hematocrit 46.7 % (42.0-52.0) Mean Corpuscular Volume 93 FL (80-99) Mean Corpuscular Hemoglobin 28.2 PG (27.0-31.0) Mean Corpuscular Hemoglobin Concent 30.4 G/DL (32.0-36.0) L Red Cell Distribution Width 15.8 % (11.6-14.8) H Platelet Count 185 K/UL (150-450) Mean Platelet Volume 7.2 FL (6.5-10.1) Neutrophils (%) (Auto) 75.7 % (45.0-75.0) H Lymphocytes (%) (Auto) 17.5 % (20.0-45.0) L Monocytes (%) (Auto) 6.5 % (1.0-10.0) Eosinophils (%) (Auto) 0.0 % (0.0-3.0) Basophils (%) (Auto) 0.3 % (0.0-2.0) Sodium Level 165 MMOL/L (136-145) *H Potassium Level 3.3 MMOL/L (3.5-5.1) L Chloride Level 127 MMOL/L (98-107) H Carbon Dioxide Level 25 MMOL/L (21-32) Anion Gap 13 mmol/L (5-15) Blood Urea Nitrogen 118 mg/dL (7-18) H Creatinine 1.6 MG/DL (0.55-1.30) H Estimat Glomerular Filtration Rate 52.0 mL/min (>60) Glucose Level 205 MG/DL (74-106) H Lactic Acid Level 3.00 mmol/L (0.4-2.0) H 3.50 mmol/L (0.66-2.22) H Uric Acid 8.9 MG/DL (2.6-7.2) H Calcium Level 8.7 MG/DL (8.5-10.1) Total Bilirubin 0.5 MG/DL (0.2-1.0) Aspartate Amino Transf (AST/SGOT) 24 U/L (15-37) Alanine Aminotransferase (ALT/SGPT) 28 U/L (12-78) Alkaline Phosphatase 99 U/L (46-116) Total Creatine Kinase 58 U/L (26-308) Creatine Kinase MB 0.5 NG/ML (0.0-3.6) Creatine Kinase MB Relative Index 0.8 Troponin I 0.112 ng/mL (0.000-0.056) Pro-B-Type Natriuretic Peptide 2391 pg/mL (0-125) H Total Protein 8.7 G/DL (6.4-8.2) H Albumin 2.3 G/DL (3.4-5.0) L Globulin 6.4 g/dL Albumin/Globulin Ratio 0.4 (1.0-2.7) L Lipase 85 U/L (73-393) Urine Color Yellow Urine Appearance Cloudy Urine pH 7 (4.5-8.0) Urine Specific [place] 1.010 (1.005-1.035) Urine Protein 3+ (NEGATIVE) H Urine Glucose (UA) Negative (NEGATIVE) Urine Ketones Negative (NEGATIVE) Urine Blood 5+ (NEGATIVE) H Urine Nitrite Negative (NEGATIVE) Urine Bilirubin Negative (NEGATIVE) Urine Urobilinogen 4 MG/DL (0.0-1.0) H Urine Leukocyte Esterase 3+ (NEGATIVE) H Urine RBC 15-20 /HPF (0 - 0) H Urine WBC Tntc /HPF (0 - 0) H Urine Squamous Epithelial Cells Occasional /LPF Urine Amorphous Sediment Many /LPF (NONE) H Urine Bacteria Moderate /HPF (NONE) H Microbiology Date/Time Source Procedure Growth Status 03/07/19 09:00 Rectum Received Height (Feet): 3 Height (Inches): 6.00 Weight (Pounds): 115 Medications Current Medications Medications (Trade) Dose Ordered Sig/Jennifer Route PRN Reason Start Time Stop Time Status Last Admin Dose Admin Acetaminophen (Tylenol) 650 mg Q4H PRN ORAL fever 03/07/19 11:30 04/06/19 07:29 Albuterol/ Ipratropium (Albuterol/ Ipratropium) 3 ml Q4H PRN HHN Shortness of Breath 03/07/19 09:00 03/12/19 08:59 Amikacin Protocol (Amikacin pharmacy to dose) 1 ea DAILY PRN MISC AMIKACIN 03/07/19 10:30 04/06/19 10:29 Amikacin Sulfate 350 mg/Sodium Chloride 111.4 ml @ 111.4 mls/ hr ONCE IV 03/07/19 13:00 03/07/19 14:00 Chlorhexidine Gluconate (Rani-Hex 2%) 1 applic DAILY@2000 TOPIC 03/07/19 20:00 04/06/19 19:59 Ertapenem 0.5 gm/ Sodium Chloride 55 ml @ 110 mls/hr Q24H IV 03/07/19 23:45 03/12/19 23:44 Heparin Sodium (Porcine) (Heparin 5000 units/ml) 5,000 units EVERY 12 HOURS SUBQ 03/07/19 09:00 04/06/19 08:59 03/07/19 10:43 Morphine Sulfate (Morphine Sulfate) 2 mg Q4H PRN IVP Severe Pain (Pain Scale 7-10) 03/07/19 09:00 03/14/19 08:59 Norepinephrine Bitartrate 4 mg/ Dextrose 254 ml @ 0 mls/hr Q24H IV 03/08/19 07:30 04/06/19 07:29 03/07/19 10:39 Ondansetron HCl (Zofran) 4 mg Q6H PRN IVP Nausea & Vomiting 03/07/19 09:00 04/06/19 08:59 Pantoprazole (Protonix) 40 mg DAILY IVP 03/07/19 09:00 04/06/19 08:59 03/07/19 10:37 Polyethylene Glycol (Miralax) 17 gm DAILYPRN PRN ORAL Constipation 03/08/19 07:30 04/06/19 07:29 Quetiapine Fumarate (SEROquel) 12.5 mg BID ORAL 03/07/19 09:00 04/06/19 08:59 03/07/19 10:38 Sodium Chloride 1,000 ml @ 100 mls/hr Q10H IVLG 03/07/19 08:45 04/06/19 07:18 03/07/19 08:45 Sodium Chloride 1,000 ml @ 999 mls/hr Q1H1M ONCE IV 03/07/19 10:45 03/07/19 11:45 03/07/19 10:45 Sodium Chloride 1,000 ml @ 999 mls/hr Q1H1M ONCE IV 03/07/19 10:45 03/07/19 11:45 Vancomycin HCl (Vanco rx to dose) 1 ea DAILY PRN MISC VANCOMYCIN 03/07/19 10:30 04/06/19 10:29 Assessment/Plan Assessment/Plan: Abx: IV vancomycin 03/07- ZOsyn 03/07 x1 Ertapenem 03/07- IV Amikacin 03/07- Assessment: Severe Sepsis- likely 2ry to UTI -u/a wbc tnct, nti neg, leuk +3; ucx -Bcx p -CXR: There is volume loss at the left lung base again noted unchanged. Left hemidiaphragm is elevated. Afebrile Leukocytosis JESUS hx of UTI 11/2018, sp Rx --u/a wbc tnct, nit+, leuk +3; ucx >100k P. mirabilis (S Ceftriaxone, Ertapenem, Zosyn) HTN CVA dysphagia s/p GT Dm2 b/l AKA non verbal advanced dementia PVD [place] resident Plan: -Continue empiric IV Vancomycin, AMikacin and Ertapenem #1 pending cultures -will d.c IV Vancomycin if prelim Bcx are negative -8/2 SP Ceftriaxone #3 -12/25 SP IV Vancomycin #3, Cefepime #3 -12/23 SP Flagyl #1 -f/u cx -Monitor CBC/CMP, temperatures Thank you for this consultation. Will continue to follow along with you. Discussed with Deepti Iyer M.D. Mar 07, 2019 12:02
--- NOTE | 2019-03-07 13:16 | NUR ---
NURSE NOTES: Levophed turned off, pt BP 100s/50s. Will continue to monitor.
[2019-03-07 14:06] LABS: APPEARANCE,URINE CLOUDY; BILIRUBIN, URINE NEGATIVE (NEGATIVE); GLUCOSE, URINE (UA) NEGATIVE (NEGATIVE); KETONES,URINE NEGATIVE (NEGATIVE); LEUKOCYTE ESTERASE ,URINE 3+ (NEGATIVE); NITRITE,URINE POSITIVE (NEGATIVE); PH,URINE 7 (4.5-8.0); PROTEIN,URINE 3+ (NEGATIVE); UROBILINOGEN,URINE 1 MG/DL (0.0-1.0)
[2019-03-07 14:22] LABS: COLOR,URINE YELLOW
--- NOTE | 2019-03-07 14:49 | History & Physical ---
History and Physical History & Physicial Yannick Marshall MD Mar 07, 2019 14:49
--- NOTE | 2019-03-07 15:02 | Consultation ---
Consult Note Consult Note i am consulted by Dr Dickson for renal failure and abnormal electrolytes seen in ICU discussed with RN not historian ER: Chief Complaint: Dyspnea/Respdistress Patient was brought in by paramedics with reports of low blood pressure and tachycardia upon arrival the patient is found to be hypotensive and tachycardic patient has multiple comorbidities and Has bilateral [id number] amputations unknown regarding recent fevers There was no reports of vomiting or diarrhea patient himself is nonverbal this does limit the history of present illness significantly No Known Allergies (Unverified , 03/07/19) Hx Hypertension: Yes Hx Diabetes: Yes Hx Cerebrovascular Accident: Yes - cerebral infarction bilateral lE amputee Assessment/Plan Acute Renal Failure- ? Underlying CKD Dehydration Sepsis / UTI Dementia PEG s/p CVA s/p Bilateral AKA Decubiti Hydrate Monitor I&O and renal parameters avoid nephrotoxics albumin bolus BS abd BP check Gennaro Cagle MD Mar 07, 2019 15:02
--- NOTE | 2019-03-07 15:06 | NUR ---
NURSE NOTES: Pt placed on P200 mattress. Urine and lactic acid level sent to lab. Will continue to monitor.
--- NOTE | 2019-03-07 15:13 | NUR ---
*-* NO INSURANCE INFORMATION ON THE BAR UNABLE TO SEND CLINICALS *-*
[2019-03-07] MEDS: NovoLOG Insulin Flexpen SUBQ SCH ×3 (15:15→23:24)
--- NOTE | 2019-03-07 15:26 | NUR ---
Social Work This Sw met with patient who is currently in the ICU. Patient is alert, nonverbal, some confusion. Patient is known to this SW from previous admissions, while patients significant other, Donte Mcarthur ([phone]) is the primary decision maker. Her son, Chepe can also be contacted @ [phone] to locate Donte. Patients sister, Sera Storm is also supportive (has been calling the nurses station for updated reports) and can be located at [phone]. Patient has a POLST stating full code, full treatment. Patient is from [facility] and will transfer back there when medically cleared. SW to follow for any planning or support, as needed. Pending progress at this time.
[2019-03-07] MEDS: D5 1/4NS 1000ml 1,000 ML IV SCH (15:52)
--- NOTE | 2019-03-07 16:53 | NUR ---
CASE MANAGEMENT:REVIEW 68 YR OLD MALE BIBA FROM [facility]; ALOC. SOB SI: SEVERE SEPSIS. DEHYDRATION. HYPERNATREMIA 98.0 123 50 86/44 90% ON RA WBC+13.1 NA+165 IS:IVF 1.5L/NS BOLUS IV ZOSYN IV VANCOMYCIN 1L NS BOLUS URINE CX CXR :TO ICU
--- NOTE | 2019-03-07 18:00 | History and Physical Report ---
DATE OF ADMISSION: 03/07/2019 CHIEF COMPLAINT: Hypotension and tachycardia. HISTORY OF PRESENT ILLNESS: This is a 68-year-old gentleman with past medical history significant for hypertension, advanced dementia, severe peripheral vascular disease, status post bilateral BKA, CVA with dysphagia status post PEG placement, and diabetes type 2, who has presented to the hospital from nursing facility after was noted to be hypotensive and tachycardic. Shortly after initial evaluation in the Emergency, the patient was admitted to the ICU with sepsis, possible with acute kidney injury on chronic renal insufficiency. History is very limited secondary to the patient's status nonverbal. History is mostly taken from the ER chart as well as prior documentation. PAST MEDICAL HISTORY AND PAST SURGICAL HISTORY: As above, history of CVA with right-sided hemiparesis, history of severe peripheral vascular disease, status post BKA, hypertension, diabetes type 2, history of cerebral infarction, dementia, severe peripheral vascular status post bilateral lower extremity , and dysphagia status post PEG. MEDICATIONS: Allopurinol, amino acids, Plavix, Seroquel, and zinc sulfate. ALLERGIES: No known drug allergies. SOCIAL HISTORY: He is a [facility] resident. No smoking, alcohol, or drugs. FAMILY HISTORY: Noncontributory. REVIEW OF SYSTEMS: Very limited secondary to the patient's status. No fever or chills was identified. PHYSICAL EXAMINATION: VITAL SIGNS: On admission from the ER is significant for temperature 98.1, pulse of 122, respirations , and blood pressure 86/44. GENERAL: The patient is awake, opens his eyes, cachectic, malnutrition. HEAD AND NECK: Pupils are equal and reactive to light. Anicteric. Neck was supple. No JVD. LUNGS: Clear. No wheezing or rales. Decreased air in bases. Coarse breath sounds. HEART: S1, S2. Tachycardic. No murmur or gallops. ABDOMEN: Soft, nondistended, and nontender. Positive bowel sounds. G-tube is in place. RECTAL/GENITOURINARY: The patient has a Pelayo catheter. EXTREMITIES: Bilateral AKA was noted with stump intact. NEUROLOGIC: Limited secondary to the patient's status. The patient is moving the left upper extremity. Right upper extremity is flaccid. MUCK FARMER II through XII grossly intact, but it is very hard to follow. Neurologic examination is very limited secondary to the patient's status. LABORATORY DATA: On admission from the ER, WBC of 13, hemoglobin 14, hematocrit 46, and platelets 185,000. Sodium 165, potassium 3.3, chloride 127, bicarb 25, BUN 118, and creatinine 1.6. Glucose is 205. GFR is 52. ProBNP of 2391. Lipase is 85. Urine is +3 protein, +5 blood, positive nitrite, +3 leukocyte, tainted wbc's. ASSESSMENT: 1. Sepsis, septic shock most likely secondary to the urinary tract infection. 2. Acute kidney injury on chronic renal insufficiency due to severe dehydration. 3. Urinary tract infection. 4. Hypertension, presently hypotensive. 5. History of CVA. 6. Dysphagia, status post PEG. 7. Diabetes type 2. 8. Status post bilateral AKA. 9. Advanced dementia. 10. History of stroke with right-sided hemiparesis. PLAN: Admit the patient to the ICU. We will follow up with the cultures. Broad spectrum antibiotics of vancomycin, amikacin, and ertapenem as per Dr. Connolly consultation from [place]. We will follow up with the laboratory prior to weaning off the pressor. Code status at this time is Full Code. Resume [facility] medication, G-tube feeding. Yannick Marshall M.D. DR: ALFREDO JOB#: [id number] CC:
--- NOTE | 2019-03-07 19:05 | NUR ---
HAND-OFF: Report given to Chaka SMITH.
--- NOTE | 2019-03-07 19:13 | NUR ---
NURSE NOTES: Received report SARAH Orlelana. Patient is awake and responsive to verbal and tactile stimuli. Patient denies any pain/discomfort at this time. Patient was nodding head when asked if pt has pain. On simple mask with O2 2L/min and O2 sat 99-100% on the monitor. SR 80s on the monitor. Right subclavian TLC intact, clean and running with D51/4NS 100ml/hr & Levophed 40mcg/min. Pelayo intact and draining with yellow urine. Bilateral AKA noted. kept dry, clean, comfortable and HOB>30. Call light placed in easy reach. Will continue plan of care.
--- NOTE | 2019-03-07 19:22 | Cardiology Progress Note ---
Assessment/Plan Assessment/Plan [id number] abn torp deman related treat for underlyign sepsis ecotrin if no contraindication full note dicated Objective Last 24 Hour Vital Signs Date Time Temp Pulse Resp B/P (MAP) Pulse Ox O2 Delivery O2 Flow Rate FiO2 03/07/19 19:00 78 32 101/60 99 Simple Mask 6.0 03/07/19 18:00 109 31 103/53 98 Simple Mask 6.0 03/07/19 17:00 75 21 100/85 99 Simple Mask 6.0 03/07/19 16:00 Simple Mask 6.0 03/07/19 16:00 84 03/07/19 16:00 6.0 03/07/19 16:00 98.5 84 23 89/49 100 Simple Mask 6.0 03/07/19 15:00 83 11 107/59 98 Simple Mask 6.0 03/07/19 14:43 100/60 03/07/19 14:30 86 27 100/60 98 Simple Mask 6.0 03/07/19 14:00 85 28 88/56 96 Simple Mask 6.0 03/07/19 13:00 111 20 102/57 98 Simple Mask 6.0 03/07/19 12:00 6.0 03/07/19 12:00 90 03/07/19 12:00 98.7 90 23 103/55 99 Simple Mask 6.0 03/07/19 12:00 Simple Mask 6.0 03/07/19 11:00 93 31 102/57 97 Simple Mask 10.0 03/07/19 10:39 84/51 03/07/19 10:00 96 31 77/50 96 Simple Mask 10.0 03/07/19 09:00 102 25 84/51 100 Simple Mask 10.0 03/07/19 08:34 98.5 102 110/70 Nasal Cannula 10.0 03/07/19 08:33 Ambu-Bag 10.0 03/07/19 08:05 97.8 102 29 112/45 100 Simple Mask 10.0 03/07/19 08:01 97.8 102 29 112/45 100 Simple Mask 10.0 03/07/19 07:22 97.8 111 35 110/85 100 Simple Mask 10.0 03/07/19 06:10 123 50 Simple Mask 10.0 03/07/19 06:10 97.4 135 36 86/44 93 Simple Mask 10.0 03/07/19 05:50 98.1 123 50 86/44 (58) 90 Room Air Intake and Output 03/06/19 03/07/19 19:00 07:00 Output Total 200 ml Balance -200 ml Output Urine Total 200 ml Laboratory Tests Test 03/07/19 06:00 03/07/19 06:40 03/07/19 07:08 03/07/19 13:40 White Blood Count 13.1 K/UL (4.8-10.8) H Red Blood Count 5.04 M/UL (4.70-6.10) Hemoglobin 14.2 G/DL (14.2-18.0) Hematocrit 46.7 % (42.0-52.0) Mean Corpuscular Volume 93 FL (80-99) Mean Corpuscular Hemoglobin 28.2 PG (27.0-31.0) Mean Corpuscular Hemoglobin Concent 30.4 G/DL (32.0-36.0) L Red Cell Distribution Width 15.8 % (11.6-14.8) H Platelet Count 185 K/UL (150-450) Mean Platelet Volume 7.2 FL (6.5-10.1) Neutrophils (%) (Auto) 75.7 % (45.0-75.0) H Lymphocytes (%) (Auto) 17.5 % (20.0-45.0) L Monocytes (%) (Auto) 6.5 % (1.0-10.0) Eosinophils (%) (Auto) 0.0 % (0.0-3.0) Basophils (%) (Auto) 0.3 % (0.0-2.0) Sodium Level 165 MMOL/L (136-145) *H Potassium Level 3.3 MMOL/L (3.5-5.1) L Chloride Level 127 MMOL/L (98-107) H Carbon Dioxide Level 25 MMOL/L (21-32) Anion Gap 13 mmol/L (5-15) Blood Urea Nitrogen 118 mg/dL (7-18) H Creatinine 1.6 MG/DL (0.55-1.30) H Estimat Glomerular Filtration Rate 52.0 mL/min (>60) Glucose Level 205 MG/DL (74-106) H Lactic Acid Level 3.00 mmol/L (0.4-2.0) H 3.50 mmol/L (0.66-2.22) H Uric Acid 8.9 MG/DL (2.6-7.2) H Calcium Level 8.7 MG/DL (8.5-10.1) Total Bilirubin 0.5 MG/DL (0.2-1.0) Aspartate Amino Transf (AST/SGOT) 24 U/L (15-37) Alanine Aminotransferase (ALT/SGPT) 28 U/L (12-78) Alkaline Phosphatase 99 U/L (46-116) Total Creatine Kinase 58 U/L (26-308) Creatine Kinase MB 0.5 NG/ML (0.0-3.6) Creatine Kinase MB Relative Index 0.8 Troponin I 0.112 ng/mL (0.000-0.056) Pro-B-Type Natriuretic Peptide 2391 pg/mL (0-125) H Total Protein 8.7 G/DL (6.4-8.2) H Albumin 2.3 G/DL (3.4-5.0) L Globulin 6.4 g/dL Albumin/Globulin Ratio 0.4 (1.0-2.7) L Lipase 85 U/L (73-393) Urine Color Yellow Yellow Urine Appearance Cloudy Cloudy Urine pH 7 (4.5-8.0) 7 (4.5-8.0) Urine Specific [place] 1.010 (1.005-1.035) 1.005 (1.005-1.035) Urine Protein 3+ (NEGATIVE) H 3+ (NEGATIVE) H Urine Glucose (UA) Negative (NEGATIVE) Negative (NEGATIVE) Urine Ketones Negative (NEGATIVE) Negative (NEGATIVE) Urine Blood 5+ (NEGATIVE) H 5+ (NEGATIVE) H Urine Nitrite Negative (NEGATIVE) Positive (NEGATIVE) H Urine Bilirubin Negative (NEGATIVE) Negative (NEGATIVE) Urine Urobilinogen 4 MG/DL (0.0-1.0) H 1 MG/DL (0.0-1.0) H Urine Leukocyte Esterase 3+ (NEGATIVE) H 3+ (NEGATIVE) H Urine RBC 15-20 /HPF (0 - 0) H 5-10 /HPF (0 - 0) H Urine WBC Tntc /HPF (0 - 0) H Tntc /HPF (0 - 0) H Urine Squamous Epithelial Cells Occasional /LPF Occasional /LPF Urine Amorphous Sediment Many /LPF (NONE) H Many /LPF (NONE) H Urine Bacteria Moderate /HPF (NONE) H Many /HPF (NONE) H Urine Eosinophils None seen (NONE SEEN) Urine Osmolality 532 mOsm/kg (429-449) H Urine Random Sodium 38 mmol/L (20-110) Test 03/07/19 14:05 Lactic Acid Level 0.80 mmol/L (0.4-2.0) Microbiology Date/Time Source Procedure Growth Status 03/07/19 09:00 Rectum Received Pradeep Wen MD Mar 07, 2019 19:22
--- NOTE | 2019-03-07 19:23 | NUR ---
NURSE NOTES: Seen by Dr. Wen and assessed patient with new orders.
--- NOTE | 2019-03-07 20:20 | NUR ---
NURSE NOTES: Repositioned patient. Still on levophed 4mcg/min. Keep MAP>60. Will continue plan of care.
[2019-03-07] MEDS: Pantoprazole Inj IVP SCH (20:31)
[2019-03-07] MEDS: Dyna-Hex 2% Top Sol 2oz TOPIC SCH (20:31)
--- NOTE | 2019-03-07 22:00 | NUR ---
NURSE NOTES: Repositioned patient. Oral care provided.
[2019-03-07] MEDS ORDERED: Ertapenem 0.5 GM in NS 55 ML IV SCH (23:45)
[2019-03-07] MEDS ORDERED: Amikacin 0 MG in NS 110 ML IV SCH (23:45)
[2019-03-07] MEDS ORDERED: Ertapenem 1 GM in NS 55 ML IV SCH (23:45)
[2019-03-07] MEDS ORDERED: Vancomycin 1 GM in D5W 275 ML IV SCH ×4 (23:45)
[2019-03-08] VITALS (36 sets, daily range): BP systolic 85–118; BP diastolic 42–82
--- NOTE | 2019-03-08 00:02 | NUR ---
NURSE NOTES: O2 titrated to 6L/min via simple mask.
--- NOTE | 2019-03-08 00:33 | NUR ---
NURSE NOTES: O2 sat 96-98% on the monitor. Will continue plan fo care.
--- NOTE | 2019-03-08 00:45 | NUR ---
NURSE NOTES: Changed right subclavian TLC dressing. No bleeding/redness noted.
[2019-03-08] MEDS: D5 1/4NS 1000ml 1,000 ML IV SCH ×2 (00:48→10:37)
--- NOTE | 2019-03-08 02:02 | NUR ---
NURSE NOTES: Repositioned patient.
--- NOTE | 2019-03-08 03:02 | NUR ---
NURSE NOTES: Bed bath and oral care provided. Still on levophed 4mcg/min and O2 6L/min via simple mask.
--- NOTE | 2019-03-08 05:02 | NUR ---
NURSE NOTES: BP has been stable. Levophed decreased 4mcg/min to 2mcg/min. Will continue plan of care.
--- NOTE | 2019-03-08 05:10 | NUR ---
NURSE NOTES: Changed simple mask 6L/min to N/C 3L/min.
--- NOTE | 2019-03-08 05:45 | Consultation ---
DATE OF CONSULTATION: 03/07/2019 CARDIOLOGY CONSULTATION CONSULTING PHYSICIAN: Pradeep Wen M.D. REFERRING PHYSICIANS: 1. Jaylin Dickson M.D. 2. Yannick Marshall M.D. REASON FOR REFERRAL: Abnormal cardiac enzymes. HISTORY OF PRESENT ILLNESS: This is an elderly gentleman with history of multiple medical problems. The patient was brought in by paramedics because of decreased level of consciousness. It is indicated that the patient normally follows commands and nods head yes or no, but was at this time nonverbal. Fever was 99.1. He had bilateral below-knee amputations. The staff had told the paramedics that he was congested. He was on 2 liters of nasal cannula upon arrival with the paramedics and that was continued throughout the course of transfer. The patient's electrocardiogram shows sinus tachycardia and at the present time he is not really able to communicate to provide any meaningful history. Information is obtained from the patient's chart. 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 The patient has a history of hyponatremia, acute tubular necrosis, peripheral vascular disease, decubitus ulcers, and abnormal liver function tests as well. ALLERGIES: The patient is not known to be allergic to any medications. SOCIAL HISTORY: Does not smoke or drink at the present time. REVIEW OF SYSTEMS: Unable to obtain. PHYSICAL EXAMINATION: GENERAL: Shows to be a middle-aged gentleman, in no respiratory distress. NECK: Supple. LUNGS: Anteriorly clear to auscultation and percussion. CARDIAC: Regular rate and rhythm. No heaves or thrills. ABDOMEN: Soft and nontender. Positive bowel sounds. EXTREMITIES: Bilateral above-knee amputations. LABORATORY VALUES: Electrocardiogram shows sinus tachycardia with nonspecific T-wave changes. Blood tests show white count of 13.1, hemoglobin 14.2, and a platelet count of 185,000. Lactic acid initially 3, subsequently 3.5, and eventually 0.8. Troponin of 0.112. Sodium is 165, potassium 3.3, chloride 127, bicarb of 25, BUN of 118, creatinine of 1.6, and glucose of 205. ProBNP of 2300. Albumin of 2.3. Urinalysis shows too numerous to count wbc's. A chest x-ray that was performed shows right subclavian central venous catheter, volume loss in the left lung base with elevated left hemidiaphragm, and heart size is stable. ASSESSMENT AND PLAN: 1. Hypernatremia. 2. Dehydration. 3. Azotemia. 4. Sinus tachycardia. 5. Septic shock. 6. Renal failure. 7. Bilateral amputation. 8. Dementia. 9. Peripheral vascular disease. 10. Systemic hypertension. PLAN: This patient was seen in cardiac consultation. The patient has mild troponin abnormality. creatinine of 1.6 as well as indeterminate significance. An echocardiogram has been ordered, however, it was a technically difficult study. Grossly, there does not appear to be any significant wall motion abnormalities, however, this is a preliminary report and needs further evaluation and I suspect the cardiac enzymes are probably demand related. I would recommend following the patient's vital signs, blood pressure, and repeat cardiac enzymes. EKG will be also performed. Final echo will be obtained tomorrow morning, and if there is significant rise in the cardiac enzymes, may be beta-blockers can be administered. The patient is apparently on antiplatelet agents at the convalescent facility and those to be continued while here and possibly administration of statins if not on already. Pradeep Wen M.D. DR: VERONICA JOB#: [id number] CC:
[2019-03-08] MEDS: NovoLOG Insulin Flexpen SUBQ SCH ×3 (06:03→17:41)
--- NOTE | 2019-03-08 06:30 | NUR ---
NURSE NOTES: Patient is on room air. O2 Sat 94-96% on the monitor. Held levophed, BP stable. Will continue plan of care.
--- NOTE | 2019-03-08 07:05 | NUR ---
HAND-OFF: Report given to SARAH Cantu. Endorsed plan of care.
--- NOTE | 2019-03-08 07:06 | NUR ---
NURSE NOTES: Received report SARAH Null. Patient is observed laying in bed, awake and responsive to simple verbal commands. Patient denies any pain and/or discomfort at this time. On Room Air SpO2 96%. SR 95 on the scientific process operator. Right subclavian TLC intact, patent and running with D5 1/4 NS @ 100ml/hr & Levophed 2mcg/min. Pelayo intact and draining with yellow urine. Bilateral AKA noted. Bed locked and lowest position, HOB>30. Call light placed in easy reach. Will resume plan of care.
[2019-03-08] MEDS ORDERED: Miralax 17gm pkt ORAL PRN (07:30)
--- NOTE | 2019-03-08 08:26 | Nephrology Progress Note ---
Assessment/Plan Problem List: (1) Renal failure (ARF), acute on chronic (2) Hypernatremia (3) Dehydration Assessment Acute Renal Failure- ? Underlying CKD Dehydration Sepsis / UTI Dementia PEG s/p CVA s/p Bilateral AKA Decubiti Plan today's labs pending Hydrate Monitor I&O and renal parameters avoid nephrotoxics albumin bolus BS abd BP check Subjective ROS Limited/Unobtainable: No Constitutional: Reports: malaise, weakness Objective Objective Last 24 Hour Vital Signs Date Time Temp Pulse Resp B/P (MAP) Pulse Ox O2 Delivery O2 Flow Rate FiO2 03/08/19 07:00 95 32 92/43 97 Room Air 03/08/19 06:30 88 30 110/67 96 Room Air 03/08/19 06:30 110/67 03/08/19 06:00 88 32 98/57 96 Nasal Cannula 3.0 03/08/19 06:00 98/57 03/08/19 05:00 3.0 03/08/19 05:00 101 33 106/63 100 Simple Mask 6.0 03/08/19 05:00 106/63 03/08/19 04:00 97 03/08/19 04:00 6.0 03/08/19 04:00 118/65 03/08/19 04:00 97.6 105 34 118/65 100 Simple Mask 6.0 03/08/19 04:00 Simple Mask 6.0 03/08/19 03:00 115/64 03/08/19 03:00 120 39 115/64 99 Simple Mask 6.0 03/08/19 02:00 84 29 93/42 96 Simple Mask 6.0 03/08/19 02:00 93/42 03/08/19 01:00 80 27 106/67 98 Simple Mask 6.0 03/08/19 01:00 103/67 03/08/19 00:00 81 03/08/19 00:00 97.8 80 27 103/52 98 Simple Mask 6.0 03/08/19 00:00 103/52 03/08/19 00:00 Simple Mask 6.0 03/07/19 23:00 95/52 03/07/19 23:00 81 29 95/52 93 Simple Mask 10.0 03/07/19 22:00 85/50 03/07/19 22:00 77 26 85/50 95 Simple Mask 10.0 03/07/19 21:00 78 27 98/47 95 Simple Mask 6.0 03/07/19 21:00 91/50 03/07/19 20:00 Simple Mask 6.0 03/07/19 20:00 84 03/07/19 20:00 101/60 03/07/19 20:00 98.0 75 24 91/50 96 Simple Mask 6.0 03/07/19 20:00 6.0 03/07/19 19:00 78 32 101/60 99 Simple Mask 6.0 03/07/19 18:00 109 31 103/53 98 Simple Mask 6.0 03/07/19 17:00 75 21 100/85 99 Simple Mask 6.0 03/07/19 16:00 Simple Mask 6.0 03/07/19 16:00 84 03/07/19 16:00 6.0 03/07/19 16:00 98.5 84 23 89/49 100 Simple Mask 6.0 03/07/19 15:00 83 11 107/59 98 Simple Mask 6.0 03/07/19 14:43 100/60 03/07/19 14:30 86 27 100/60 98 Simple Mask 6.0 03/07/19 14:00 85 28 88/56 96 Simple Mask 6.0 03/07/19 13:00 111 20 102/57 98 Simple Mask 6.0 03/07/19 12:00 6.0 03/07/19 12:00 90 03/07/19 12:00 98.7 90 23 103/55 99 Simple Mask 6.0 03/07/19 12:00 Simple Mask 6.0 03/07/19 11:00 93 31 102/57 97 Simple Mask 10.0 03/07/19 10:39 84/51 03/07/19 10:00 96 31 77/50 96 Simple Mask 10.0 03/07/19 09:00 102 25 84/51 100 Simple Mask 10.0 03/07/19 08:34 98.5 102 110/70 Nasal Cannula 10.0 03/07/19 08:33 Ambu-Bag 10.0 Intake and Output 03/07/19 03/08/19 19:00 07:00 Intake Total 808.5 ml 1316.3 ml Output Total 1075 ml 1395 ml Balance -266.5 ml -78.7 ml Intake IV Total 808.5 ml 1316.3 ml Output Urine Total 1075 ml 1395 ml # Bowel Movements 1 2 Laboratory Tests 03/07/19 13:40: Urine Color Yellow, Urine Appearance Cloudy, Urine pH 7, Urine Specific [place] 1.005, Urine Protein 3+H, Urine Glucose (UA) Negative, Urine Ketones Negative, Urine Blood 5+H, Urine Nitrite PositiveH, Urine Bilirubin Negative, Urine Urobilinogen 1H, Urine Leukocyte Esterase 3+H, Urine RBC 5-10H, Urine WBC TntcH , Urine Squamous Epithelial Cells Occasional, Urine Amorphous Sediment ManyH, Urine Bacteria ManyH, Urine Eosinophils None seen, Urine Osmolality 532H, Urine Random Sodium 38 03/07/19 14:05: Lactic Acid Level 0.80 Height (Feet): 3 Height (Inches): 6.00 Weight (Pounds): 109 General Appearance: no apparent distress Objective no change Gennaro Cagle MD Mar 08, 2019 08:26
[2019-03-08] MEDS: Pantoprazole Inj IVP SCH ×2 (08:40→21:30)
[2019-03-08] MEDS: Heparin 5000 units/ml inj SUBQ SCH ×2 (08:44→21:00)
--- NOTE | 2019-03-08 08:51 | Pulmonolgy Critical Care Note ---
Critical Care - Asmt/Plan Assessment/Plan: ASSESSMENT Severe sepsis likely secondary to UTI and PNA Likely PNA Septic shock Elevated troponin, probably demand related JESUS likely 2/2 severe dehydration Dysphagia, feeding by G-tube History of CVA with right-sided hemiparesis Status post bilateral AKA Diabetes mellitus Decubitus ulcer, POA Alzheimer dementia PLAN OF CARE ICU status Levophed, titrate to keep mean arterial BP above 65 O2 titrate to keep pulse ox above 92%, HHN fup with chest x-ray and ABG in am Echo Cardio follow Per cardio elevated troponin probably demand related repeat troponin Start Ecotrin abx as per ID fup with cx, UCX + GNR, get SCX IVF, monitor renal parameters, electrolytes, avoid nephrotoxic Nephro follows chemistry pending for this am DVT , GI prophylaxis BS management with SSI Wound care case discussed and evaluated by supervising physician Critical Care - Objective Last 24 Hour Vital Signs Date Time Temp Pulse Resp B/P (MAP) Pulse Ox O2 Delivery O2 Flow Rate FiO2 03/08/19 07:00 95 32 92/43 97 Room Air 03/08/19 06:30 88 30 110/67 96 Room Air 03/08/19 06:30 110/67 03/08/19 06:00 88 32 98/57 96 Nasal Cannula 3.0 03/08/19 06:00 98/57 03/08/19 05:00 3.0 03/08/19 05:00 101 33 106/63 100 Simple Mask 6.0 03/08/19 05:00 106/63 03/08/19 04:00 97 03/08/19 04:00 6.0 03/08/19 04:00 118/65 03/08/19 04:00 97.6 105 34 118/65 100 Simple Mask 6.0 03/08/19 04:00 Simple Mask 6.0 03/08/19 03:00 115/64 03/08/19 03:00 120 39 115/64 99 Simple Mask 6.0 03/08/19 02:00 84 29 93/42 96 Simple Mask 6.0 03/08/19 02:00 93/42 03/08/19 01:00 80 27 106/67 98 Simple Mask 6.0 03/08/19 01:00 103/67 03/08/19 00:00 81 03/08/19 00:00 97.8 80 27 103/52 98 Simple Mask 6.0 03/08/19 00:00 103/52 03/08/19 00:00 Simple Mask 6.0 03/07/19 23:00 95/52 03/07/19 23:00 81 29 95/52 93 Simple Mask 10.0 03/07/19 22:00 85/50 03/07/19 22:00 77 26 85/50 95 Simple Mask 10.0 03/07/19 21:00 78 27 98/47 95 Simple Mask 6.0 03/07/19 21:00 91/50 03/07/19 20:00 Simple Mask 6.0 03/07/19 20:00 84 03/07/19 20:00 101/60 03/07/19 20:00 98.0 75 24 91/50 96 Simple Mask 6.0 03/07/19 20:00 6.0 03/07/19 19:00 78 32 101/60 99 Simple Mask 6.0 03/07/19 18:00 109 31 103/53 98 Simple Mask 6.0 03/07/19 17:00 75 21 100/85 99 Simple Mask 6.0 03/07/19 16:00 Simple Mask 6.0 03/07/19 16:00 84 03/07/19 16:00 6.0 03/07/19 16:00 98.5 84 23 89/49 100 Simple Mask 6.0 03/07/19 15:00 83 11 107/59 98 Simple Mask 6.0 03/07/19 14:43 100/60 03/07/19 14:30 86 27 100/60 98 Simple Mask 6.0 03/07/19 14:00 85 28 88/56 96 Simple Mask 6.0 03/07/19 13:00 111 20 102/57 98 Simple Mask 6.0 03/07/19 12:00 6.0 03/07/19 12:00 90 03/07/19 12:00 98.7 90 23 103/55 99 Simple Mask 6.0 03/07/19 12:00 Simple Mask 6.0 03/07/19 11:00 93 31 102/57 97 Simple Mask 10.0 03/07/19 10:39 84/51 03/07/19 10:00 96 31 77/50 96 Simple Mask 10.0 03/07/19 09:00 102 25 84/51 100 Simple Mask 10.0 Status: awake, other - bedridden, chronically ill looking male Condition: critical Lungs: rhonchi - scattered left side Heart: HR/BP unstable Abdomen: soft, non-tender, active bowel sounds, other - G tube Extremities: other - R side hemiparesis, bilateral AKA Micro: Microbiology Date/Time Source Procedure Growth Status 03/07/19 13:40 Urine,Clean Catch Urine Culture - Preliminary Gram Negative Alin Resulted 03/07/19 06:40 Urine,Clean Catch Urine Culture - Preliminary Gram Negative Alin Resulted 03/07/19 09:00 Rectum Received Accucheck: 118 Critical Care - Subjective ROS Limited/Unobtainable: Yes Interval Events: leuk resolved, afebrile on Levophed gtt CXR with concern for PNA ABG with hypoxia on RA, now on NC Condition: critical - R jugular, intact EKG Rhythm: Sinus Rhythm Fluids: D51/4 at 100 Drips: Levophed gtt 15 ml/hr I&O: Intake and Output 03/07/19 03/08/19 19:00 07:00 Intake Total 808.5 ml 1316.3 ml Output Total 1075 ml 1395 ml Balance -266.5 ml -78.7 ml Intake IV Total 808.5 ml 1316.3 ml Output Urine Total 1075 ml 1395 ml # Bowel Movements 1 2 CXR: CXR 03/08 1. Mildly worsening patchy consolidation throughout the left upper and lower lungs compared to the prior exam, concerning for pneumonia. 2. Persistent mild elevation of the left hemidiaphragm. 3. Cannot exclude small layering left pleural effusion. Stephanie Jessica NP Mar 08, 2019 08:51
--- NOTE | 2019-03-08 08:55 | Diagnostic Imaging Report ---
EXAM: XR Chest, 1 View CLINICAL HISTORY: DYSPNEA TECHNIQUE: Frontal view of the chest. COMPARISON: Chest x-rays dated 03 07 19 FINDINGS: Limitations: Exam degraded by mild rotation. Lungs: Mildly worsening patchy consolidation throughout the left upper and lower lungs compared to the prior exam. Pleural space: Cannot exclude small layering left effusion. Heart: Unremarkable. No cardiomegaly. Mediastinum: Unremarkable. Bones joints: Mild degenerative changes throughout the visualized spine. Vasculature: Atherosclerotic calcifications are noted within the aortic arch. Tubes, lines and devices: Stable positioning of the right superior and central venous catheter with the tip at the superior vena cava right atrial junction. Telemetry leads overlie the thorax. Upper abdomen: Persistent mild elevation of the left hemidiaphragm. IMPRESSION: 1. Mildly worsening patchy consolidation throughout the left upper and lower lungs compared to the prior exam, concerning for pneumonia. 2. Persistent mild elevation of the left hemidiaphragm. 3. Cannot exclude small layering left pleural effusion.
[2019-03-08 09:34] LABS: BASOPHILS % (AUTO) 0.2 % (0.0-2.0); EOSINOPHILS % (AUTO) 0.1 % (0.0-3.0); HEMATOCRIT 37.7 % (42.0-52.0); HEMOGLOBIN 11.6 G/DL (14.2-18.0); LYMPHOCYTES % (AUTO) 19.7 % (20.0-45.0); MEAN CORPUSCULAR VOLUME 92 FL (80-99); MONOCYTES % (AUTO) 5.1 % (1.0-10.0); PLATELET COUNT 148 K/UL (150-450); RED BLOOD COUNT 4.09 M/UL (4.70-6.10); RED CELL DISTRIBUTION WIDTH 15.3 % (11.6-14.8); WHITE BLOOD COUNT 10.5 K/UL (4.8-10.8)
[2019-03-08 09:45] LABS: CHOLESTEROL 80 MG/DL (< 200); HDL CHOLESTEROL 16 MG/DL (40-60); TRIGLYCERIDES 127 MG/DL (30-150)
[2019-03-08 09:58] LABS: CREATINE KINASE 146 U/L (26-308); GAMMA GLUTAMYL TRANSPEPTIDASE 3 U/L (5-85); PHOSPHORUS 1.5 MG/DL (2.5-4.9)
[2019-03-08 10:10] LABS: ALANINE AMINOTRANSFERASE 27 U/L (12-78); ALBUMIN 2.1 G/DL (3.4-5.0); ALBUMIN/GLOBULIN RATIO 0.5 (1.0-2.7); ALKALINE PHOSPHATASE 67 U/L (46-116); ANION GAP 10 mmol/L (5-15); ASPARTATE AMINO TRANSFERASE 33 U/L (15-37); BILIRUBIN,TOTAL 0.5 MG/DL (0.2-1.0); BLOOD UREA NITROGEN 39 mg/dL (7-18); CARBON DIOXIDE 21 MMOL/L (21-32); CHLORIDE 134 MMOL/L (98-107); CREATININE 0.7 MG/DL (0.55-1.30)
[2019-03-08 10:11] LABS: POTASSIUM 1.9 MMOL/L (3.5-5.1); SODIUM 166 MMOL/L (136-145)
--- NOTE | 2019-03-08 11:15 | NUR ---
NURSE NOTES: Dr Cagle notified of Potassium 1.9 and Sodium 166. New orders received, noted, and carried out.
--- NOTE | 2019-03-08 12:04 | NUR ---
NURSE NOTES: Tylenol 650MG given via Gtube for fever 100.2. Will reassess.
[2019-03-08] MEDS ORDERED: Amikacin 350 MG in NS 110 ML IV SCH (13:00)
[2019-03-08] MEDS ORDERED: Vancomycin 1 GM in NS 275 ML IVPB ONE (14:00)
--- NOTE | 2019-03-08 15:00 | NUR ---
NURSE NOTES: Dr. Sutherland at bedside assessing pt. Updated her with patient's current condition and notified her of Troponin 0.121. No new orders. Pt repositioned. Levophed continues to run at 2mcg/min. No distress noted.
--- NOTE | 2019-03-08 15:47 | NUR ---
CASE MANAGEMENT: REVIEW 03/08/2019 SI: SEVERE SEPSIS. DEHYDRATION. HYPERNATREMIA T 99.1 HR 103 RR 27 B/P 97/53 SATS 99% ON RA NA 166 K 1.9 CL 134 BUN 39 GLU 134 CA 8 TROPONIN 0.121 IS:DEXTROSE IV @ 100 mL/HR ASA PO QD K PHOS IV X1 LEVOPHED PER PARAMETERS ERTAPENEM IV Q24H VANCO IV Q24H KCL IV Q2H INSULIN ASPART SUBQ Q6H :TO ICU
[2019-03-08] MEDS ORDERED: Potassium Phosphate 30 MM in NS 275 ML IV ONE (16:00)
--- NOTE | 2019-03-08 16:39 | Internal Med Progress Note ---
Subjective Date of Service: Mar 08, 2019 Physician Name Darrick Stout Attending Physician Yannick Marshall MD Current Medications Medications (Trade) Dose Ordered Sig/Jennifer Route PRN Reason Start Time Stop Time Status Last Admin Dose Admin Acetaminophen (Tylenol) 650 mg Q4H PRN ORAL fever 03/07/19 11:30 04/06/19 07:29 03/08/19 12:04 Albuterol/ Ipratropium (Albuterol/ Ipratropium) 3 ml Q4H PRN HHN Shortness of Breath 03/07/19 09:00 03/12/19 08:59 Amikacin Protocol (Amikacin pharmacy to dose) 1 ea DAILY PRN MISC AMIKACIN 03/07/19 10:30 04/06/19 10:29 Aspirin (ASA) 81 mg DAILY ORAL 03/09/19 09:00 04/08/19 08:59 Chlorhexidine Gluconate (Rani-Hex 2%) 1 applic DAILY@2000 TOPIC 03/07/19 20:00 04/06/19 19:59 03/07/19 20:31 Dextrose 1,000 ml @ 100 mls/hr Q10H IV 03/08/19 12:00 04/07/19 11:59 03/08/19 11:26 Dextrose (Dextrose 50%) 25 ml Q30M PRN IV Hypoglycemia 03/07/19 15:15 04/06/19 15:14 Dextrose (Dextrose 50%) 50 ml Q30M PRN IV Hypoglycemia 03/07/19 15:15 04/06/19 15:14 Ertapenem 1 gm/ Sodium Chloride 55 ml @ 110 mls/hr Q24H IV 03/08/19 22:00 03/13/19 21:59 Heparin Sodium (Porcine) (Heparin 5000 units/ml) 5,000 units EVERY 12 HOURS SUBQ 03/07/19 09:00 04/06/19 08:59 03/08/19 08:44 Insulin Aspart (NovoLOG) Q6HR SUBQ 03/07/19 15:15 04/06/19 15:14 03/08/19 11:34 Morphine Sulfate (Morphine Sulfate) 2 mg Q4H PRN IVP Severe Pain (Pain Scale 7-10) 03/07/19 09:00 03/14/19 08:59 Norepinephrine Bitartrate 4 mg/ Dextrose 254 ml @ 0 mls/hr Q24H IV 03/07/19 14:30 04/06/19 14:29 03/08/19 10:36 Ondansetron HCl (Zofran) 4 mg Q6H PRN IVP Nausea & Vomiting 03/07/19 09:00 04/06/19 08:59 Pantoprazole (Protonix) 40 mg Q12HR IVP 03/07/19 21:00 04/06/19 08:59 03/08/19 08:40 Polyethylene Glycol (Miralax) 17 gm DAILYPRN PRN ORAL Constipation 03/08/19 07:30 04/06/19 07:29 Potassium Phosphate 30 mm/ Sodium Chloride 285 ml @ 47.5 mls/hr ONCE ONCE IV 03/08/19 16:00 03/08/19 21:59 03/08/19 16:03 Potassium Chloride 100 ml @ 50 mls/hr Q2HR IVPB 03/08/19 12:00 03/08/19 17:59 03/08/19 16:03 Quetiapine Fumarate (SEROquel) 12.5 mg BID ORAL 03/07/19 09:00 04/06/19 08:59 03/08/19 08:40 Vancomycin HCl (Vanco rx to dose) 1 ea DAILY PRN MISC VANCOMYCIN 03/07/19 10:30 04/06/19 10:29 Vancomycin HCl 750 mg/Dextrose 275 ml @ 183.333 mls/hr Q24H IVPB 03/09/19 14:00 03/14/19 13:59 Allergies: Coded Allergies: No Known Allergies (Unverified , 03/07/19) ROS Limited/Unobtainable: Yes Subjective 68 YO M admitted with hypotension. Now sepsis. ICU. Cover for Int Travon-Dr Marshall Objective Last Vital Signs Date Time Temp Pulse Resp B/P (MAP) Pulse Ox O2 Delivery O2 Flow Rate FiO2 03/08/19 16:00 Room Air 03/08/19 15:00 84 32 104/58 96 03/08/19 12:34 99.1 03/08/19 06:00 3.0 Laboratory Tests Test 03/08/19 08:45 03/08/19 09:17 03/08/19 10:00 White Blood Count 10.5 K/UL (4.8-10.8) Red Blood Count 4.09 M/UL (4.70-6.10) L Hemoglobin 11.6 G/DL (14.2-18.0) L Hematocrit 37.7 % (42.0-52.0) L Mean Corpuscular Volume 92 FL (80-99) Mean Corpuscular Hemoglobin 28.3 PG (27.0-31.0) Mean Corpuscular Hemoglobin Concent 30.7 G/DL (32.0-36.0) L Red Cell Distribution Width 15.3 % (11.6-14.8) H Platelet Count 148 K/UL (150-450) L Mean Platelet Volume 9.2 FL (6.5-10.1) Neutrophils (%) (Auto) 75.0 % (45.0-75.0) Lymphocytes (%) (Auto) 19.7 % (20.0-45.0) L Monocytes (%) (Auto) 5.1 % (1.0-10.0) Eosinophils (%) (Auto) 0.1 % (0.0-3.0) Basophils (%) (Auto) 0.2 % (0.0-2.0) Sodium Level 166 MMOL/L (136-145) *H Potassium Level 1.9 MMOL/L (3.5-5.1) *L Chloride Level 134 MMOL/L (98-107) H Carbon Dioxide Level 21 MMOL/L (21-32) Anion Gap 10 mmol/L (5-15) Blood Urea Nitrogen 39 mg/dL (7-18) #H Creatinine 0.7 MG/DL (0.55-1.30) # Estimat Glomerular Filtration Rate > 60 mL/min (>60) Glucose Level 134 MG/DL (74-106) H Hemoglobin A1c 5.3 % (4.3-6.0) Uric Acid 6.5 MG/DL (2.6-7.2) Calcium Level 8.0 MG/DL (8.5-10.1) L Phosphorus Level 1.5 MG/DL (2.5-4.9) L Magnesium Level 2.3 MG/DL (1.8-2.4) Total Bilirubin 0.5 MG/DL (0.2-1.0) Gamma Glutamyl Transpeptidase 3 U/L (5-85) L Aspartate Amino Transf (AST/SGOT) 33 U/L (15-37) Alanine Aminotransferase (ALT/SGPT) 27 U/L (12-78) Alkaline Phosphatase 67 U/L (46-116) Total Creatine Kinase 146 U/L (26-308) Troponin I 0.121 ng/mL (0.000-0.056) C-Reactive Protein, Quantitative 17.2 mg/dL (0.00-0.90) H Pro-B-Type Natriuretic Peptide 1610 pg/mL (0-125) H Total Protein 6.1 G/DL (6.4-8.2) L Albumin 2.1 G/DL (3.4-5.0) L Globulin 4.0 g/dL Albumin/Globulin Ratio 0.5 (1.0-2.7) L Triglycerides Level 127 MG/DL (30-150) Cholesterol Level 80 MG/DL (< 200) LDL Cholesterol 30 mg/dL (<100) HDL Cholesterol 16 MG/DL (40-60) L Cholesterol/HDL Ratio 5.0 (3.3-4.4) H Cortisol AM Sample Pending Random Amikacin Level < 2.5 ug/mL Arterial Blood pH 7.457 (7.350-7.450) Arterial Blood Partial Pressure CO2 28.4 mmHg (35.0-45.0) L Arterial Blood Partial Pressure O2 51.7 mmHg (75.0-100.0) L Arterial Blood HCO3 19.6 mmol/L (22.0-26.0) L Arterial Blood Oxygen Saturation 88.1 % (95-100) *L Arterial Blood Base Excess -3.2 (-2-2) L Sudheer Test Positive Random Vancomycin Level 2.5 ug/mL Microbiology Date/Time Source Procedure Growth Status 03/07/19 13:40 Urine,Clean Catch Urine Culture - Preliminary Gram Negative Alin Resulted 03/07/19 06:40 Urine,Clean Catch Urine Culture - Preliminary Gram Negative Alin Resulted 03/07/19 09:00 Rectum Received Intake and Output 03/07/19 03/08/19 18:59 06:59 Intake Total 693.5 ml 1431.3 ml Output Total 875 ml 1470 ml Balance -181.5 ml -38.7 ml Intake IV Total 693.5 ml 1431.3 ml Output Urine Total 875 ml 1470 ml # Bowel Movements 1 2 Objective PHYSICAL EXAMINATION: GENERAL: The patient is awake, opens his eyes, cachectic, malnutrition. HEAD AND NECK: Pupils are equal and reactive to light. Anicteric. Neck was supple. No JVD. LUNGS: Clear. No wheezing or rales. Decreased air in bases. Coarse breath sounds. HEART: S1, S2. Tachycardic. No murmur or gallops. ABDOMEN: Soft, nondistended, and nontender. Positive bowel sounds. G-tube is in place. RECTAL/GENITOURINARY: The patient has a Pelayo catheter. EXTREMITIES: Bilateral AKA was noted with stump intact. NEUROLOGIC: Limited secondary to the patient's status. The patient is moving the left upper extremity. Right upper extremity is flaccid. UX CONSULTANT II through XII grossly intact, but it is very hard to follow. Neurologic examination is very limited secondary to the patient's status. Assessment/Plan Assessment/Plan ASSESSMENT: 1. Sepsis, septic shock most likely secondary to the urinary tract infection. 2. Acute kidney injury on chronic renal insufficiency due to severe dehydration. 3. Urinary tract infection. 4. Hypertension, presently hypotensive. 5. History of CVA. 6. Dysphagia, status post PEG. 7. Diabetes type 2. 8. Status post bilateral AKA. 9. Advanced dementia. 10. History of stroke with right-sided hemiparesis. PLAN: Admit the patient to the ICU. We will follow up with the cultures. Broad spectrum antibiotics of vancomycin, amikacin, and ertapenem as per Dr. Connolly consultation from [place]. We will follow up with the laboratory prior to weaning off the pressor. Code status at this time is Full Code. Resume fdc medication, G-tube feeding. Darrick Stout MD Mar 08, 2019 16:39
[2019-03-08] MEDS ORDERED: Tubing IV Secondary IV ONE (17:04)
[2019-03-08] MEDS ORDERED: NS 275ml ONE (17:04)
--- NOTE | 2019-03-08 17:10 | Cardiology Report ---
APPROVED REPORT EKG Measurement Heart [id number] P-21 [id number] Atrial flutter with variable AV block Nonspecific ST and T wave abnormality Abnormal ECG
--- NOTE | 2019-03-08 17:17 | Cardiology Report ---
APPROVED REPORT EKG Measurement Heart [id number] [id number] Sinus tachycardia with premature atrial complexes T wave abnormality, consider lateral ischemia Abnormal ECG
--- NOTE | 2019-03-08 17:25 | Infectious Diseases Prog Note ---
Assessment/Plan Assessment/Plan Assessment: Severe Sepsis- likely 2ry to UTI and PNA -03/08 CXR: Mildly worsening patchy consolidation throughout the left upper and lower lungs compared to the prior exam, concerning for pneumonia. Persistent mild elevation of the left hemidiaphragm. Cannot exclude small layering left pleural effusion. -u/a wbc tnct, nti neg, leuk +3; ucx >100k GNR -Bcx p -CXR: There is volume loss at the left lung base again noted unchanged. Left hemidiaphragm is elevated. Low grade fever Leukocytosis, SP JESUS, SP hx of UTI 11/2018, sp Rx --u/a wbc tnct, nit+, leuk +3; ucx >100k P. mirabilis (S Ceftriaxone, Ertapenem, Zosyn) HTN CVA dysphagia s/p GT Dm2 b/l AKA non verbal advanced dementia PVD NH resident Plan: -Continue empiric IV Vancomycin, AMikacin and Ertapenem #2 pending cultures -03/07 SP Zosyn x1 -/ SP Ceftriaxone #3 -12/25 SP IV Vancomycin #3, Cefepime #3 -12/23 SP Flagyl #1 -f/u cx -Monitor CBC/CMP, temperatures Thank you for this consultation. Will continue to follow along with you. Discussed with RN Subjective Allergies: Coded Allergies: No Known Allergies (Unverified , 03/07/19) Objective Vital Signs Last 24 Hour Vital Signs Date Time Temp Pulse Resp B/P (MAP) Pulse Ox O2 Delivery O2 Flow Rate FiO2 03/08/19 17:00 92 40 109/56 96 Room Air 03/08/19 17:00 100/56 03/08/19 16:30 85 29 102/55 96 Room Air 03/08/19 16:00 Room Air 03/08/19 16:00 98.3 82 27 96/45 95 Room Air 03/08/19 15:40 83 03/08/19 15:00 84 32 104/58 96 Room Air 03/08/19 15:00 104/58 03/08/19 14:30 84 33 100/54 99 Room Air 03/08/19 14:00 100/54 03/08/19 14:00 83 32 103/54 100 Room Air 03/08/19 13:30 85 27 91/48 99 Room Air 03/08/19 13:00 97/53 03/08/19 13:00 103 27 97/53 99 Room Air 03/08/19 12:34 99.1 03/08/19 12:00 Room Air 03/08/19 12:00 96/54 03/08/19 12:00 100.2 103 33 96/54 99 Room Air 03/08/19 11:53 102 03/08/19 11:30 102 33 89/51 97 Room Air 03/08/19 11:00 104 35 90/53 98 Room Air 03/08/19 11:00 90/53 03/08/19 11:00 90/53 03/08/19 11:00 90/53 03/08/19 11:00 90/53 03/08/19 11:00 90/53 03/08/19 10:36 94/49 03/08/19 10:00 92/52 03/08/19 10:00 92/52 03/08/19 10:00 92/52 03/08/19 10:00 92/52 03/08/19 10:00 92/52 03/08/19 10:00 92/52 03/08/19 10:00 105 34 94/49 98 Room Air 03/08/19 09:30 104 32 85/48 97 Room Air 03/08/19 09:00 104 34 87/54 96 Room Air 03/08/19 09:00 87/54 03/08/19 09:00 87/54 03/08/19 09:00 87/54 03/08/19 09:00 87/54 03/08/19 09:00 87/54 03/08/19 09:00 87/54 03/08/19 08:30 90 33 110/60 95 Room Air 03/08/19 08:00 Room Air 03/08/19 08:00 105/42 03/08/19 08:00 99.0 87 32 105/42 97 Room Air 03/08/19 07:26 96 03/08/19 07:00 88/48 03/08/19 07:00 95 32 92/43 97 Room Air 03/08/19 06:30 88 30 110/67 96 Room Air 03/08/19 06:30 110/67 03/08/19 06:00 88 32 98/57 96 Nasal Cannula 3.0 03/08/19 06:00 98/57 03/08/19 05:00 3.0 03/08/19 05:00 101 33 106/63 100 Simple Mask 6.0 03/08/19 05:00 106/63 03/08/19 04:00 97 03/08/19 04:00 6.0 03/08/19 04:00 118/65 03/08/19 04:00 97.6 105 34 118/65 100 Simple Mask 6.0 03/08/19 04:00 Simple Mask 6.0 03/08/19 03:00 115/64 03/08/19 03:00 120 39 115/64 99 Simple Mask 6.0 03/08/19 02:00 84 29 93/42 96 Simple Mask 6.0 03/08/19 02:00 93/42 03/08/19 01:00 80 27 106/67 98 Simple Mask 6.0 03/08/19 01:00 103/67 03/08/19 00:00 81 03/08/19 00:00 97.8 80 27 103/52 98 Simple Mask 6.0 03/08/19 00:00 103/52 03/08/19 00:00 Simple Mask 6.0 03/07/19 23:00 95/52 03/07/19 23:00 81 29 95/52 93 Simple Mask 10.0 03/07/19 22:00 85/50 03/07/19 22:00 77 26 85/50 95 Simple Mask 10.0 03/07/19 21:00 78 27 98/47 95 Simple Mask 6.0 03/07/19 21:00 91/50 03/07/19 20:00 Simple Mask 6.0 03/07/19 20:00 84 03/07/19 20:00 101/60 03/07/19 20:00 98.0 75 24 91/50 96 Simple Mask 6.0 03/07/19 20:00 6.0 03/07/19 19:00 78 32 101/60 99 Simple Mask 6.0 03/07/19 18:00 109 31 103/53 98 Simple Mask 6.0 Height (Feet): 3 Height (Inches): 6.00 Weight (Pounds): 109 Objective General Appearance: moderate distress - Appears diaphoretic and is tachycardic Head: normocephalic, atraumatic Eyes: bilateral eye PERRL, bilateral eye EOMI ENT: dry mucus membranes Neck: supple Respiratory: no retraction, no accessory muscle use, crackles - Bilaterally Cardiovascular: tachycardia Gastrointestinal: non tender, soft, other - Feeding tube in place Musculoskeletal: other - Bilateral [id number]-hehf amputations does not follow commands, right upper extremity paralysis Neurologic: other - Patient has eyes open however does not follow commands is not verbal Psychiatric: normal inspection Skin: other - Scars formations bilateral femoral area Microbiology Date/Time Source Procedure Growth Status 03/07/19 13:40 Urine,Clean Catch Urine Culture - Preliminary Gram Negative Alin Resulted 03/07/19 06:40 Urine,Clean Catch Urine Culture - Preliminary Gram Negative Alin Resulted 03/07/19 09:00 Rectum Received Laboratory Tests Test 03/08/19 08:45 03/08/19 09:17 03/08/19 10:00 White Blood Count 10.5 K/UL (4.8-10.8) Red Blood Count 4.09 M/UL (4.70-6.10) L Hemoglobin 11.6 G/DL (14.2-18.0) L Hematocrit 37.7 % (42.0-52.0) L Mean Corpuscular Volume 92 FL (80-99) Mean Corpuscular Hemoglobin 28.3 PG (27.0-31.0) Mean Corpuscular Hemoglobin Concent 30.7 G/DL (32.0-36.0) L Red Cell Distribution Width 15.3 % (11.6-14.8) H Platelet Count 148 K/UL (150-450) L Mean Platelet Volume 9.2 FL (6.5-10.1) Neutrophils (%) (Auto) 75.0 % (45.0-75.0) Lymphocytes (%) (Auto) 19.7 % (20.0-45.0) L Monocytes (%) (Auto) 5.1 % (1.0-10.0) Eosinophils (%) (Auto) 0.1 % (0.0-3.0) Basophils (%) (Auto) 0.2 % (0.0-2.0) Sodium Level 166 MMOL/L (136-145) *H Potassium Level 1.9 MMOL/L (3.5-5.1) *L Chloride Level 134 MMOL/L (98-107) H Carbon Dioxide Level 21 MMOL/L (21-32) Anion Gap 10 mmol/L (5-15) Blood Urea Nitrogen 39 mg/dL (7-18) #H Creatinine 0.7 MG/DL (0.55-1.30) # Estimat Glomerular Filtration Rate > 60 mL/min (>60) Glucose Level 134 MG/DL (74-106) H Hemoglobin A1c 5.3 % (4.3-6.0) Uric Acid 6.5 MG/DL (2.6-7.2) Calcium Level 8.0 MG/DL (8.5-10.1) L Phosphorus Level 1.5 MG/DL (2.5-4.9) L Magnesium Level 2.3 MG/DL (1.8-2.4) Total Bilirubin 0.5 MG/DL (0.2-1.0) Gamma Glutamyl Transpeptidase 3 U/L (5-85) L Aspartate Amino Transf (AST/SGOT) 33 U/L (15-37) Alanine Aminotransferase (ALT/SGPT) 27 U/L (12-78) Alkaline Phosphatase 67 U/L (46-116) Total Creatine Kinase 146 U/L (26-308) Troponin I 0.121 ng/mL (0.000-0.056) C-Reactive Protein, Quantitative 17.2 mg/dL (0.00-0.90) H Pro-B-Type Natriuretic Peptide 1610 pg/mL (0-125) H Total Protein 6.1 G/DL (6.4-8.2) L Albumin 2.1 G/DL (3.4-5.0) L Globulin 4.0 g/dL Albumin/Globulin Ratio 0.5 (1.0-2.7) L Triglycerides Level 127 MG/DL (30-150) Cholesterol Level 80 MG/DL (< 200) LDL Cholesterol 30 mg/dL (<100) HDL Cholesterol 16 MG/DL (40-60) L Cholesterol/HDL Ratio 5.0 (3.3-4.4) H Cortisol AM Sample Pending Random Amikacin Level < 2.5 ug/mL Arterial Blood pH 7.457 (7.350-7.450) Arterial Blood Partial Pressure CO2 28.4 mmHg (35.0-45.0) L Arterial Blood Partial Pressure O2 51.7 mmHg (75.0-100.0) L Arterial Blood HCO3 19.6 mmol/L (22.0-26.0) L Arterial Blood Oxygen Saturation 88.1 % (95-100) *L Arterial Blood Base Excess -3.2 (-2-2) L Sudheer Test Positive Random Vancomycin Level 2.5 ug/mL Current Medications Medications (Trade) Dose Ordered Sig/Jennifer Route PRN Reason Start Time Stop Time Status Last Admin Dose Admin Acetaminophen (Tylenol) 650 mg Q4H PRN ORAL fever 03/07/19 11:30 04/06/19 07:29 03/08/19 12:04 Albuterol/ Ipratropium (Albuterol/ Ipratropium) 3 ml Q4H PRN HHN Shortness of Breath 03/07/19 09:00 03/12/19 08:59 Amikacin Protocol (Amikacin pharmacy to dose) 1 ea DAILY PRN MISC AMIKACIN 03/07/19 10:30 04/06/19 10:29 Aspirin (ASA) 81 mg DAILY ORAL 03/09/19 09:00 04/08/19 08:59 Chlorhexidine Gluconate (Rani-Hex 2%) 1 applic DAILY@2000 TOPIC 03/07/19 20:00 04/06/19 19:59 03/07/19 20:31 Dextrose 1,000 ml @ 100 mls/hr Q10H IV 03/08/19 12:00 04/07/19 11:59 03/08/19 11:26 Dextrose (Dextrose 50%) 25 ml Q30M PRN IV Hypoglycemia 03/07/19 15:15 04/06/19 15:14 Dextrose (Dextrose 50%) 50 ml Q30M PRN IV Hypoglycemia 03/07/19 15:15 04/06/19 15:14 Ertapenem 1 gm/ Sodium Chloride 55 ml @ 110 mls/hr Q24H IV 03/08/19 22:00 03/13/19 21:59 Heparin Sodium (Porcine) (Heparin 5000 units/ml) 5,000 units EVERY 12 HOURS SUBQ 03/07/19 09:00 04/06/19 08:59 03/08/19 08:44 Insulin Aspart (NovoLOG) Q6HR SUBQ 03/07/19 15:15 04/06/19 15:14 03/08/19 11:34 Morphine Sulfate (Morphine Sulfate) 2 mg Q4H PRN IVP Severe Pain (Pain Scale 7-10) 03/07/19 09:00 03/14/19 08:59 Norepinephrine Bitartrate 4 mg/ Dextrose 254 ml @ 0 mls/hr Q24H IV 03/07/19 14:30 04/06/19 14:29 03/08/19 10:36 Ondansetron HCl (Zofran) 4 mg Q6H PRN IVP Nausea & Vomiting 03/07/19 09:00 04/06/19 08:59 Pantoprazole (Protonix) 40 mg Q12HR IVP 03/07/19 21:00 04/06/19 08:59 03/08/19 08:40 Polyethylene Glycol (Miralax) 17 gm DAILYPRN PRN ORAL Constipation 03/08/19 07:30 04/06/19 07:29 Potassium Phosphate 30 mm/ Sodium Chloride 285 ml @ 47.5 mls/hr ONCE ONCE IV 03/08/19 16:00 03/08/19 21:59 03/08/19 16:03 Potassium Chloride 100 ml @ 50 mls/hr Q2HR IVPB 03/08/19 12:00 03/08/19 17:59 03/08/19 16:03 Quetiapine Fumarate (SEROquel) 12.5 mg BID ORAL 03/07/19 09:00 04/06/19 08:59 03/08/19 08:40 Vancomycin HCl (Vanco rx to dose) 1 ea DAILY PRN MISC VANCOMYCIN 03/07/19 10:30 04/06/19 10:29 Vancomycin HCl 750 mg/Dextrose 275 ml @ 183.333 mls/hr Q24H IVPB 03/09/19 14:00 03/14/19 13:59 Deepti Connolly M.D. Mar 08, 2019 17:24
--- NOTE | 2019-03-08 19:10 | NUR ---
HAND-OFF: Report given to SARAH Loyola.
--- NOTE | 2019-03-08 19:30 | NUR ---
NURSE NOTES: Received pt in no acute distress. Calm, asleep but arousable to name. Non verbal. Moves both UE purposefully. No SOB noted. Pt on Room Air saturating 98%. Chest sounds diminished with scattered rhonchi. NSR on the monitor, BP stable. Right subclavian TLC intact; Levophed gtt infuses at 2mcg/min. and main IVF of D5W at 100ml/h. GT intact; remains NPO. FC patent, urine output 40-50ml/h. s/p Bilat BAKA; left stump with pressure ulcer, stage 2, sacral area with stge 2 pressure as well; pt on P-200mattress. Will monitor LOC and vital signs
--- NOTE | 2019-03-08 20:00 | NUR ---
NURSE NOTES: Also received with K phos 30mmol running at 47.5ml/h via right SC. Site intact; no redness, no drainage.
[2019-03-08] MEDS: Dyna-Hex 2% Top Sol 2oz TOPIC SCH (21:30)
[2019-03-08] MEDS: Ertapenem 1 GM in NS 55 ML IV SCH (21:52)
--- NOTE | 2019-03-08 22:00 | NUR ---
NURSE NOTES: Oral care done. Turned/ repositioned. BP stable. Sleeping
--- NOTE | 2019-03-08 22:21 | Cardiology Progress Note ---
Assessment/Plan Assessment/Plan sepsis, secondary to sepsis myocardial ischemia with elevated troponin continue abx and hemodynamic support Subjective Subjective the patient is lethargic, no interacting Objective Last 24 Hour Vital Signs Date Time Temp Pulse Resp B/P (MAP) Pulse Ox O2 Delivery O2 Flow Rate FiO2 03/08/19 20:00 98 03/08/19 20:00 Room Air 03/08/19 20:00 80 27 97/56 98 Room Air 03/08/19 19:30 98.7 84 23 98/58 98 Room Air 03/08/19 19:00 100/55 03/08/19 19:00 83 25 100/55 98 Room Air 03/08/19 18:00 98/54 03/08/19 18:00 87 27 98/54 96 Room Air 03/08/19 17:00 92 40 109/56 96 Room Air 03/08/19 17:00 100/56 03/08/19 16:30 85 29 102/55 96 Room Air 03/08/19 16:00 Room Air 03/08/19 16:00 98.3 82 27 96/45 95 Room Air 03/08/19 15:40 83 03/08/19 15:00 84 32 104/58 96 Room Air 03/08/19 15:00 104/58 03/08/19 14:30 84 33 100/54 99 Room Air 03/08/19 14:00 100/54 03/08/19 14:00 83 32 103/54 100 Room Air 03/08/19 13:30 85 27 91/48 99 Room Air 03/08/19 13:00 97/53 03/08/19 13:00 103 27 97/53 99 Room Air 03/08/19 12:34 99.1 03/08/19 12:00 Room Air 03/08/19 12:00 96/54 03/08/19 12:00 100.2 103 33 96/54 99 Room Air 03/08/19 11:53 102 03/08/19 11:30 102 33 89/51 97 Room Air 03/08/19 11:00 104 35 90/53 98 Room Air 03/08/19 11:00 90/53 03/08/19 11:00 90/53 03/08/19 11:00 90/53 03/08/19 11:00 90/53 03/08/19 11:00 90/53 10/12/19 10:36 94/49 03/08/19 10:00 92/52 03/08/19 10:00 92/52 03/08/19 10:00 92/52 03/08/19 10:00 92/52 03/08/19 10:00 92/52 03/08/19 10:00 92/52 03/08/19 10:00 105 34 94/49 98 Room Air 03/08/19 09:30 104 32 85/48 97 Room Air 03/08/19 09:00 104 34 87/54 96 Room Air 03/08/19 09:00 87/54 03/08/19 09:00 87/54 03/08/19 09:00 87/54 03/08/19 09:00 87/54 03/08/19 09:00 87/54 03/08/19 09:00 87/54 03/08/19 08:30 90 33 110/60 95 Room Air 03/08/19 08:00 Room Air 03/08/19 08:00 105/42 03/08/19 08:00 99.0 87 32 105/42 97 Room Air 03/08/19 07:26 96 03/08/19 07:00 88/48 03/08/19 07:00 95 32 92/43 97 Room Air 03/08/19 06:30 88 30 110/67 96 Room Air 03/08/19 06:30 110/67 03/08/19 06:00 88 32 98/57 96 Nasal Cannula 3.0 03/08/19 06:00 98/57 03/08/19 05:00 3.0 03/08/19 05:00 101 33 106/63 100 Simple Mask 6.0 03/08/19 05:00 106/63 03/08/19 04:00 97 03/08/19 04:00 6.0 03/08/19 04:00 118/65 03/08/19 04:00 97.6 105 34 118/65 100 Simple Mask 6.0 03/08/19 04:00 Simple Mask 6.0 03/08/19 03:00 115/64 03/08/19 03:00 120 39 115/64 99 Simple Mask 6.0 03/08/19 02:00 84 29 93/42 96 Simple Mask 6.0 03/08/19 02:00 93/42 03/08/19 01:00 80 27 106/67 98 Simple Mask 6.0 03/08/19 01:00 103/67 03/08/19 00:00 81 03/08/19 00:00 97.8 80 27 103/52 98 Simple Mask 6.0 03/08/19 00:00 103/52 03/08/19 00:00 Simple Mask 6.0 03/07/19 23:00 95/52 03/07/19 23:00 81 29 95/52 93 Simple Mask 10.0 General Appearance: lethargic, other - ill appearing EENT: PERRL/EOMI Neck: non-tender Rhythm: NSR Cardiovascular: regular rhythm Respiratory/Chest: crackles/rales Abdomen: soft Extremities: other - bilateral amputation Intake and Output 03/07/19 03/08/19 19:00 07:00 Intake Total 808.5 ml 1423.8 ml Output Total 1075 ml 1395 ml Balance -266.5 ml 28.8 ml IV Total 808.5 ml 1423.8 ml Output Urine Total 1075 ml 1395 ml # Bowel Movements 1 2 Laboratory Tests Test 03/08/19 08:45 03/08/19 09:17 03/08/19 10:00 White Blood Count 10.5 K/UL (4.8-10.8) Red Blood Count 4.09 M/UL (4.70-6.10) L Hemoglobin 11.6 G/DL (14.2-18.0) L Hematocrit 37.7 % (42.0-52.0) L Mean Corpuscular Volume 92 FL (80-99) Mean Corpuscular Hemoglobin 28.3 PG (27.0-31.0) Mean Corpuscular Hemoglobin Concent 30.7 G/DL (32.0-36.0) L Red Cell Distribution Width 15.3 % (11.6-14.8) H Platelet Count 148 K/UL (150-450) L Mean Platelet Volume 9.2 FL (6.5-10.1) Neutrophils (%) (Auto) 75.0 % (45.0-75.0) Lymphocytes (%) (Auto) 19.7 % (20.0-45.0) L Monocytes (%) (Auto) 5.1 % (1.0-10.0) Eosinophils (%) (Auto) 0.1 % (0.0-3.0) Basophils (%) (Auto) 0.2 % (0.0-2.0) Sodium Level 166 MMOL/L (136-145) *H Potassium Level 1.9 MMOL/L (3.5-5.1) *L Chloride Level 134 MMOL/L (98-107) H Carbon Dioxide Level 21 MMOL/L (21-32) Anion Gap 10 mmol/L (5-15) Blood Urea Nitrogen 39 mg/dL (7-18) #H Creatinine 0.7 MG/DL (0.55-1.30) # Estimat Glomerular Filtration Rate > 60 mL/min (>60) Glucose Level 134 MG/DL (74-106) H Hemoglobin A1c 5.3 % (4.3-6.0) Uric Acid 6.5 MG/DL (2.6-7.2) Calcium Level 8.0 MG/DL (8.5-10.1) L Phosphorus Level 1.5 MG/DL (2.5-4.9) L Magnesium Level 2.3 MG/DL (1.8-2.4) Total Bilirubin 0.5 MG/DL (0.2-1.0) Gamma Glutamyl Transpeptidase 3 U/L (5-85) L Aspartate Amino Transf (AST/SGOT) 33 U/L (15-37) Alanine Aminotransferase (ALT/SGPT) 27 U/L (12-78) Alkaline Phosphatase 67 U/L (46-116) Total Creatine Kinase 146 U/L (26-308) Troponin I 0.121 ng/mL (0.000-0.056) C-Reactive Protein, Quantitative 17.2 mg/dL (0.00-0.90) H Pro-B-Type Natriuretic Peptide 1610 pg/mL (0-125) H Total Protein 6.1 G/DL (6.4-8.2) L Albumin 2.1 G/DL (3.4-5.0) L Globulin 4.0 g/dL Albumin/Globulin Ratio 0.5 (1.0-2.7) L Triglycerides Level 127 MG/DL (30-150) Cholesterol Level 80 MG/DL (< 200) LDL Cholesterol 30 mg/dL (<100) HDL Cholesterol 16 MG/DL (40-60) L Cholesterol/HDL Ratio 5.0 (3.3-4.4) H Cortisol AM Sample Pending Random Amikacin Level < 2.5 ug/mL Arterial Blood pH 7.457 (7.350-7.450) Arterial Blood Partial Pressure CO2 28.4 mmHg (35.0-45.0) L Arterial Blood Partial Pressure O2 51.7 mmHg (75.0-100.0) L Arterial Blood HCO3 19.6 mmol/L (22.0-26.0) L Arterial Blood Oxygen Saturation 88.1 % (95-100) *L Arterial Blood Base Excess -3.2 (-2-2) L Sudheer Test Positive Random Vancomycin Level 2.5 ug/mL Microbiology Date/Time Source Procedure Growth Status 03/07/19 13:40 Urine,Clean Catch Urine Culture - Preliminary Gram Negative Alin Resulted 03/07/19 06:40 Urine,Clean Catch Urine Culture - Preliminary Gram Negative Alin Resulted 03/07/19 09:00 Rectum Received Anh Sutherland MD Mar 08, 2019 22:21
[2019-03-09] VITALS (52 sets, daily range): BP systolic 75–124; BP diastolic 40–70
--- NOTE | 2019-03-09 | NUR ---
NURSE NOTES: Afebrile. BP stable. Levophed gtt continues at 2mcg/min. No respiratory distress. Asleep.
--- NOTE | 2019-03-09 02:00 | NUR ---
NURSE NOTES: Sleeping, VSS, No distress.
--- NOTE | 2019-03-09 04:00 | NUR ---
NURSE NOTES: Had 1 mod amt of formed stool. Complete bath rendered. Redressed sacral wound and left stump wound.Afebrile. BP stable, 106/60; titrated Levophed gtt down to 1mcg/min. Pt sl tachypneic and with expiratory wheeze. Called RT to give breathing tx and asked to obtain sputum for C&S.
[2019-03-09] MEDS: Albuterol/Ipratropium 3ml neb HHN PRN (04:23)
--- NOTE | 2019-03-09 05:00 | NUR ---
NURSE NOTES: RT unsuccessful in obtaining sputum sample even via NT suctioning. Negative for sputum production
--- NOTE | 2019-03-09 05:42 | NUR ---
NURSE NOTES: Wound dressings to sacral area and left stump changed
[2019-03-09] MEDS: NovoLOG Insulin Flexpen SUBQ SCH ×5 (06:00→23:47)
[2019-03-09 06:15] LABS: BASOPHILS % (AUTO) 0.5 % (0.0-2.0); EOSINOPHILS % (AUTO) 0.3 % (0.0-3.0); HEMATOCRIT 38.2 % (42.0-52.0); HEMOGLOBIN 11.8 G/DL (14.2-18.0); LYMPHOCYTES % (AUTO) 40.4 % (20.0-45.0); MEAN CORPUSCULAR VOLUME 92 FL (80-99); MONOCYTES % (AUTO) 5.3 % (1.0-10.0); NEUTROPHILS % (AUTO) 53.5 % (45.0-75.0); PLATELET COUNT 117 K/UL (150-450); RED BLOOD COUNT 4.14 M/UL (4.70-6.10); RED CELL DISTRIBUTION WIDTH 15.5 % (11.6-14.8); WHITE BLOOD COUNT 7.8 K/UL (4.8-10.8)
[2019-03-09 06:54] LABS: ALANINE AMINOTRANSFERASE 28 U/L (12-78); ALBUMIN 2.5 G/DL (3.4-5.0); ALBUMIN/GLOBULIN RATIO 0.6 (1.0-2.7); ALKALINE PHOSPHATASE 63 U/L (46-116); ANION GAP 11 mmol/L (5-15); ASPARTATE AMINO TRANSFERASE 28 U/L (15-37); BILIRUBIN,TOTAL 0.5 MG/DL (0.2-1.0); BLOOD UREA NITROGEN 16 mg/dL (7-18); CALCIUM 8.6 MG/DL (8.5-10.1); CARBON DIOXIDE 23 MMOL/L (21-32); CHLORIDE 127 MMOL/L (98-107); CREATININE 0.8 MG/DL (0.55-1.30)
--- NOTE | 2019-03-09 06:58 | NUR ---
HAND-OFF: Report given to Alondra SMITH.
[2019-03-09 06:59] LABS: SODIUM 161 MMOL/L (136-145)
[2019-03-09 07:00] LABS: POTASSIUM 2.2 MMOL/L (3.5-5.1)
--- NOTE | 2019-03-09 07:00 | NUR ---
NURSE NOTES: Received report SARAH Loyola. Patient is observed laying in bed, awake and responsive to simple commands; however is not verbal, able to nod his head. Moves Left upper extremity freely, Right side is weak. Patient denies any pain and/or discomfort at this time. On Room Air SpO2 98%. ST 102 on the laboratory monitor. Right subclavian TLC intact, patent and running with D5 1/4 NS @ 100ml/hr. Levophed currently on hold. Pelayo intact and draining with yellow urine. Bilateral AKA noted. Bed locked and lowest position, HOB>30. Pt on P200 mattress. Call light placed in easy reach. Will resume plan of care.
--- NOTE | 2019-03-09 07:10 | Pulmonolgy Critical Care Note ---
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 Diabetes mellitus Decubitus ulcer, POA Alzheimer dementia PLAN OF CARE ICU status Levophed, titrate to keep mean arterial BP above 65 O2 titrate to keep pulse ox above 92%, HHN fup with chest x-ray and ABG in am Echo Cardio follow Per cardio elevated troponin probably demand related repeat troponin Start Ecotrin abx as per ID fup with cx, UCX + Proteus get SCX IVF, monitor renal parameters, electrolytes, avoid nephrotoxic Nephro follows replace K, Mg stable DVT , GI prophylaxis BS management with SSI Wound care case discussed and evaluated by supervising physician Critical Care - Objective Last 24 Hour Vital Signs Date Time Temp Pulse Resp B/P (MAP) Pulse Ox O2 Delivery O2 Flow Rate FiO2 03/09/19 06:30 113 32 97 03/09/19 06:00 108 36 105/57 96 Room Air 03/09/19 06:00 102/52 03/09/19 05:30 110 34 117/70 95 Room Air 03/09/19 05:00 115 32 106/55 95 Room Air 03/09/19 05:00 106/55 03/09/19 04:35 110 30 98 Room Air 21 03/09/19 04:30 109 30 124/57 100 Room Air 03/09/19 04:24 109 30 96 03/09/19 04:00 98.8 101 29 106/60 95 Room Air 03/09/19 04:00 Room Air 03/09/19 04:00 106/60 03/09/19 04:00 102 03/09/19 03:30 107 35 91/40 99 03/09/19 03:00 105 32 118/55 99 Room Air 03/09/19 03:00 118/55 03/09/19 02:30 107 38 106/61 99 Room Air 03/09/19 02:00 104/57 03/09/19 02:00 104 31 104/57 100 Room Air 03/09/19 01:30 102 29 118/47 99 Room Air 03/09/19 01:00 104 28 118/58 97 Room Air 03/09/19 01:00 118/58 03/09/19 00:30 102 35 111/51 99 Room Air 03/09/19 00:00 106/56 03/09/19 00:00 98.8 89 29 106/56 99 Room Air 03/09/19 00:00 Room Air 03/09/19 00:00 90 03/08/19 23:30 83 28 112/55 99 03/08/19 23:00 105 29 108/65 98 03/08/19 23:00 108/65 03/08/19 22:30 102 31 115/67 98 03/08/19 22:00 104 29 103/56 98 Room Air 03/08/19 22:00 103/56 03/08/19 21:30 104 37 105/82 98 Room Air 03/08/19 21:00 112/57 03/08/19 21:00 82 26 112/57 98 Room Air 03/08/19 20:30 85 30 103/58 98 Room Air 03/08/19 20:00 98 03/08/19 20:00 Room Air 03/08/19 20:00 97/56 03/08/19 20:00 80 27 97/56 98 Room Air 03/08/19 19:30 98.7 84 23 98/58 98 Room Air 03/08/19 19:00 100/55 03/08/19 19:00 83 25 100/55 98 Room Air 03/08/19 18:00 98/54 03/08/19 18:00 87 27 98/54 96 Room Air 03/08/19 17:00 92 40 109/56 96 Room Air 03/08/19 17:00 100/56 03/08/19 16:30 85 29 102/55 96 Room Air 03/08/19 16:00 Room Air 03/08/19 16:00 98.3 82 27 96/45 95 Room Air 03/08/19 15:40 83 03/08/19 15:00 84 32 104/58 96 Room Air 03/08/19 15:00 104/58 03/08/19 14:30 84 33 100/54 99 Room Air 03/08/19 14:00 100/54 03/08/19 14:00 83 32 103/54 100 Room Air 10/12/19 13:30 85 27 91/48 99 Room Air 03/08/19 13:00 97/53 03/08/19 13:00 103 27 97/53 99 Room Air 03/08/19 12:34 99.1 03/08/19 12:00 Room Air 03/08/19 12:00 96/54 03/08/19 12:00 100.2 103 33 96/54 99 Room Air 03/08/19 11:53 102 03/08/19 11:30 102 33 89/51 97 Room Air 03/08/19 11:00 104 35 90/53 98 Room Air 03/08/19 11:00 90/53 03/08/19 11:00 90/53 03/08/19 11:00 90/53 03/08/19 11:00 90/53 03/08/19 11:00 90/53 03/08/19 10:36 94/49 03/08/19 10:00 92/52 03/08/19 10:00 92/52 03/08/19 10:00 92/52 03/08/19 10:00 92/52 03/08/19 10:00 92/52 03/08/19 10:00 92/52 03/08/19 10:00 105 34 94/49 98 Room Air 03/08/19 09:30 104 32 85/48 97 Room Air 03/08/19 09:00 104 34 87/54 96 Room Air 03/08/19 09:00 87/54 03/08/19 09:00 87/54 03/08/19 09:00 87/54 03/08/19 09:00 87/54 03/08/19 09:00 87/54 03/08/19 09:00 87/54 03/08/19 08:30 90 33 110/60 95 Room Air 03/08/19 08:00 Room Air 03/08/19 08:00 105/42 03/08/19 08:00 99.0 87 32 105/42 97 Room Air 03/08/19 07:26 96 Objective: Status: awake, bedridden, chronically ill looking male Condition: critical Lungs: scattered rhonchi on the left Heart: HR/BP unstable Abdomen: soft, non-tender, active bowel sounds, G tube Extremities: R side hemiparesis, bilateral AKA Micro: Microbiology Date/Time Source Procedure Growth Status 03/07/19 06:00 Blood Blood Culture - Preliminary NO GROWTH AFTER 24 HOURS Resulted 03/07/19 05:45 Blood Blood Culture - Preliminary NO GROWTH AFTER 24 HOURS Resulted 03/07/19 09:00 Nasal Nares MRSA Culture - Final Staphylococcus Aureus - Mrsa Complete 03/07/19 13:40 Urine,Clean Catch Urine Culture - Final Proteus Mirabilis Complete 03/07/19 06:40 Urine,Clean Catch Urine Culture - Final Proteus Mirabilis Complete 03/07/19 09:00 Rectum VRE Culture - Final NO VANCOMYCIN RESISTANT ENTEROCOCCUS ... Complete 03/07/19 09:00 Rectum - Final NO CARBAPENEM-RESISTANT ENTEROBACTERI... Complete Accucheck: 98 Critical Care - Subjective ROS Limited/Unobtainable: Yes Interval Events: No leukocytosis, no fevers ABG better trying to wean from Levophed troponin trending down, no acute changes on tele Na 161 K 2.2 Condition: critical IV Access: central - R jugular CL intact EKG Rhythm: Sinus Rhythm Sputum Amount: Scant Fluids: D51/4 NS at 100 Drips: Levophed 3.75 ml/hr I&O: Intake and Output 03/08/19 03/09/19 19:00 07:00 Intake Total 1150.56 ml 1321.25 ml Output Total 1065 ml 905 ml Balance 85.56 ml 416.25 ml Intake Oral 0 ml IV Total 1150.56 ml 1321.25 ml Output Urine Total 1065 ml 905 ml # Bowel Movements 2 CXR: CXR 03/08 1. Mildly worsening patchy consolidation throughout the left upper and lower lungs compared to the prior exam, concerning for pneumonia. 2. Persistent mild elevation of the left hemidiaphragm. 3. Cannot exclude small layering left pleural effusion. Stephanie Jessica HEEL CUTTER Mar 09, 2019 07:10
[2019-03-09] MEDS ORDERED: KCl 20mEq 100ml Premix IVPB ONE (08:00)
[2019-03-09] MEDS: Aspirin Baby 81mg ORAL SCH (08:09)
[2019-03-09] MEDS: Pantoprazole Inj IVP SCH ×2 (08:09→20:13)
[2019-03-09] MEDS: Heparin 5000 units/ml inj SUBQ SCH ×2 (08:10→20:13)
--- NOTE | 2019-03-09 08:15 | NUR ---
NURSE NOTES: Levophed turned back on to 1mcg/min d/t B/P in the 70's. Will monitor.
--- NOTE | 2019-03-09 09:00 | NUR ---
NURSE NOTES: Dr Cagle at bedside assessing patient. He was notified of Potassium 2.2 and Sodium 161. New orders received, noted, and carried out.
--- NOTE | 2019-03-09 09:03 | NUR ---
NURSE NOTES: Titrated Levo from 1 mcg to 6 mcg due to SBP 70s due to hypotension. Recheck of BP is now 91/45. Will continue to check BP and titrate if necessary due to hypotension outside protocol.
--- NOTE | 2019-03-09 09:33 | Diagnostic Imaging Report ---
EXAM: XR Chest, 1 View CLINICAL HISTORY: Shortness of breath TECHNIQUE: Frontal view of the chest. COMPARISON: Chest x-ray dated 03 08 19 FINDINGS: Lungs: No significant interval change in the diffuse patchy opacities throughout the left lung. Pleural space: Possible layering left pleural effusion, unchanged. Cannot exclude a tiny left apical pneumothorax. Heart: Unremarkable. No cardiomegaly. Mediastinum: Unremarkable. Bones joints: Unremarkable. Vasculature: Atherosclerotic calcifications are noted within the aortic arch. Tubes, lines and devices: Telemetry leads overlie the thorax. Right subclavian central venous catheter with the tip in the region of the SVC right atrial junction. IMPRESSION: 1. No significant interval change in the diffuse patchy opacities throughout the left lung. 2. Possible layering left pleural effusion, unchanged. 3. Cannot exclude a tiny left apical pneumothorax.
--- NOTE | 2019-03-09 09:41 | Nephrology Progress Note ---
Assessment/Plan Problem List: (1) Renal failure (ARF), acute on chronic (2) Hypernatremia (3) Dehydration (4) Hypokalemia Assessment Acute Renal Failure- ? Underlying CKD Dehydration Sepsis / UTI Dementia PEG s/p CVA s/p Bilateral AKA Decubiti Plan today's labs noted Hydrate + K and Phos supplement IV Monitor I&O and renal parameters avoid nephrotoxics albumin bolus BS abd BP check Subjective ROS Limited/Unobtainable: No Constitutional: Reports: malaise Objective Objective Last 24 Hour Vital Signs Date Time Temp Pulse Resp B/P (MAP) Pulse Ox O2 Delivery O2 Flow Rate FiO2 03/09/19 08:40 100.0 03/09/19 08:00 Room Air 03/09/19 08:00 101.5 104 36 92/48 99 Room Air 03/09/19 07:30 108 36 98/53 97 03/09/19 07:00 110 34 114/69 99 03/09/19 06:30 113 32 97 03/09/19 06:00 108 36 105/57 96 Room Air 03/09/19 06:00 102/52 03/09/19 05:30 110 34 117/70 95 Room Air 03/09/19 05:00 115 32 106/55 95 Room Air 03/09/19 05:00 106/55 03/09/19 04:35 110 30 98 Room Air 21 03/09/19 04:30 109 30 124/57 100 Room Air 03/09/19 04:24 109 30 96 03/09/19 04:00 98.8 101 29 106/60 95 Room Air 03/09/19 04:00 Room Air 03/09/19 04:00 106/60 03/09/19 04:00 102 03/09/19 03:30 107 35 91/40 99 03/09/19 03:00 105 32 118/55 99 Room Air 03/09/19 03:00 118/55 03/09/19 02:30 107 38 106/61 99 Room Air 03/09/19 02:00 104/57 03/09/19 02:00 104 31 104/57 100 Room Air 03/09/19 01:30 102 29 118/47 99 Room Air 03/09/19 01:00 104 28 118/58 97 Room Air 03/09/19 01:00 118/58 03/09/19 00:30 102 35 111/51 99 Room Air 03/09/19 00:00 106/56 03/09/19 00:00 98.8 89 29 106/56 99 Room Air 03/09/19 00:00 Room Air 03/09/19 00:00 90 03/08/19 23:30 83 28 112/55 99 03/08/19 23:00 105 29 108/65 98 03/08/19 23:00 108/65 03/08/19 22:30 102 31 115/67 98 03/08/19 22:00 104 29 103/56 98 Room Air 03/08/19 22:00 103/56 03/08/19 21:30 104 37 105/82 98 Room Air 03/08/19 21:00 112/57 03/08/19 21:00 82 26 112/57 98 Room Air 03/08/19 20:30 85 30 103/58 98 Room Air 03/08/19 20:00 98 03/08/19 20:00 Room Air 03/08/19 20:00 97/56 03/08/19 20:00 80 27 97/56 98 Room Air 03/08/19 19:30 98.7 84 23 98/58 98 Room Air 03/08/19 19:00 100/55 03/08/19 19:00 83 25 100/55 98 Room Air 03/08/19 18:00 98/54 03/08/19 18:00 87 27 98/54 96 Room Air 03/08/19 17:00 92 40 109/56 96 Room Air 03/08/19 17:00 100/56 03/08/19 16:30 85 29 102/55 96 Room Air 03/08/19 16:00 Room Air 03/08/19 16:00 98.3 82 27 96/45 95 Room Air 03/08/19 15:40 83 03/08/19 15:00 84 32 104/58 96 Room Air 03/08/19 15:00 104/58 03/08/19 14:30 84 33 100/54 99 Room Air 03/08/19 14:00 100/54 03/08/19 14:00 83 32 103/54 100 Room Air 03/08/19 13:30 85 27 91/48 99 Room Air 10/12/19 13:00 97/53 03/08/19 13:00 103 27 97/53 99 Room Air 03/08/19 12:00 Room Air 03/08/19 12:00 96/54 03/08/19 12:00 100.2 103 33 96/54 99 Room Air 03/08/19 11:53 102 03/08/19 11:30 102 33 89/51 97 Room Air 03/08/19 11:00 104 35 90/53 98 Room Air 03/08/19 11:00 9053 03/08/19 11:00 90/53 03/08/19 11:00 9053 03/08/19 11:00 9053 03/08/19 11:00 90/53 03/08/19 10:36 94/49 03/08/19 10:00 9252 03/08/19 10:00 9252 03/08/19 10:00 9252 03/08/19 10:00 52 03/08/19 10:00 52 03/08/19 10:00 9252 03/08/19 10:00 105 34 94/49 98 Room Air Intake and Output 03/08/19 03/09/19 19:00 07:00 Intake Total 1150.56 ml 1321.25 ml Output Total 1065 ml 1045 ml Balance 85.56 ml 276.25 ml Intake Oral 0 ml IV Total 1150.56 ml 1321.25 ml Output Urine Total 1065 ml 1045 ml # Bowel Movements 2 Laboratory Tests 03/08/19 10:00: Random Vancomycin Level 2.5 03/09/19 05:15: White Blood Count 7.8, Red Blood Count 4.14L, Hemoglobin 11.8L, Hematocrit 38.2L , Mean Corpuscular Volume 92, Mean Corpuscular Hemoglobin 28.4, Mean Corpuscular Hemoglobin Concent 30.8L, Red Cell Distribution Width 15.5H, Platelet Count 117L, Mean Platelet Volume 8.2, Neutrophils (%) (Auto) 53.5, Lymphocytes (%) (Auto) 40.4, Monocytes (%) (Auto) 5.3, Eosinophils (%) (Auto) 0.3, Basophils (%) (Auto) 0.5, Sodium Level 161*H, Potassium Level 2.2*L, Chloride Level 127H, Carbon Dioxide Level 23, Anion Gap 11, Blood Urea Nitrogen 16, Creatinine 0.8, Estimat Glomerular Filtration Rate > 60, Glucose Level 101, Calcium Level 8.6, Phosphorus Level 2.0L, Magnesium Level 1.8, Total Bilirubin 0.5, Aspartate Amino Transf (AST/SGOT) 28, Alanine Aminotransferase (ALT/SGPT) 28, Alkaline Phosphatase 63, Troponin I 0.071H, C-Reactive Protein, Quantitative 11.9H, Pro-B-Type Natriuretic Peptide 1903H, Total Protein 6.9, Albumin 2.5L, Globulin 4.4, Albumin/Globulin Ratio 0.6L 03/09/19 06:05: Arterial Blood pH 7.470H, Arterial Blood Partial Pressure CO2 25.0L, Arterial Blood Partial Pressure O2 52.6L, Arterial Blood HCO3 17.8*L, Arterial Blood Oxygen Saturation 90.4L, Arterial Blood Base Excess -4.4L, Sudheer Test Positive Height (Feet): 3 Height (Inches): 6.00 Weight (Pounds): 110 General Appearance: no apparent distress Cardiovascular: tachycardia Respiratory/Chest: decreased breath sounds Abdomen: distended Objective no change Gennaro Cagle MD Mar 09, 2019 09:41
[2019-03-09] MEDS ORDERED: Potassium Phosphate 30 MM in NS 275 ML IV SCH (10:00)
--- NOTE | 2019-03-09 10:15 | NUR ---
NURSE NOTES: qc lab technician at bedside performing Ultrasound of the kidneys. Pt tolerating well.
--- NOTE | 2019-03-09 10:45 | NUR ---
NURSE NOTES: Levophed increased to 10mcg/min. B/P: 94/51
--- NOTE | 2019-03-09 11:00 | NUR ---
NURSE NOTES: Levophed titrated back down to 6mcg/min. B/P:114/56
--- NOTE | 2019-03-09 11:55 | Cardiology Report ---
APPROVED REPORT EXAM: Two-dimensional and M-mode echocardiogram with Doppler and color Doppler. INDICATION Left ventricular function M-Mode DIMENSIONS IVSd1.4 (0.7-1.1cm)Left Atrium (MM)2.6 (1.6-4.0cm) LVDd4.4 (3.5-5.6cm)Aortic Root3.7 (2.0-3.7cm) PWd1.9 (0.7-1.1cm)Aortic Cusp Exc.1.5 (1.5-2.0cm) LVDs3.0 (2.5-4.0cm) PWs2.1 cm Technically difficult and limited study due to poor acoustic windows. Study quality precludes accurate assessment of regional wall motion. Normal left ventricular chamber size, systolic function and wall motion. Left ventricular ejection fraction estimated to be grossly normal. Mild left ventricular hypertrophy. No evidence of pericardial effusion. All other cardiac chamber sizes are within normal limits. Focal aortic valve sclerosis with adequate cusp excursion. Thickened mitral valve leaflets with normal excursion. Mild mitral annulus and aortic root calcification. Pulmonic valve not visualized. Normal tricuspid valve structure. Subcostal views not obtainable due to G-Tube. A color flow and spectral Doppler study was performed and revealed: Trace aortic regurgitation. Trace mitral regurgitation. Mitral diastolic velocities suggest mild left ventricular diastolic dysfunction (Grade I). Trace tricuspid regurgitation. Tricuspid systolic velocities suggests peak right ventricular systolic pressure of 19 mmHg.
--- NOTE | 2019-03-09 13:00 | NUR ---
NURSE NOTES: Dr. Sutherland at bedside assessing pt and updated her with patient's current condition. No new orders at this time. Potassium replacement still infusing. Pt repositioned. No distress noted.
--- NOTE | 2019-03-09 13:01 | NUR ---
NURSE NOTES: Dr. Sutherland made aware of Troponin 0.071.
--- NOTE | 2019-03-09 13:21 | NUR ---
CASE MANAGEMENT: REVIEW 03/09/2019 SI: SEVERE SEPSIS. DEHYDRATION. HYPERNATREMIA T 99 HR 100 RR 31 B/P 103/62 SATS 100% ON RA NA 161 K 2.2 CL 127 PHOS 2 ABgs PH 7.470 PCO2 25 PO2 52.6 HCO3 17.8 O2 SAT 90.4 BE -4.4 IS:DEXTROSE IV @ 100 mL/HR ASA PO QD K PHOS IV X1 LEVOPHED PER PARAMETERS ERTAPENEM IV Q24H VANCO IV Q24H KCL IV Q2H INSULIN ASPART SUBQ Q6H :TO ICU
[2019-03-09] MEDS: Amikacin 350 MG in NS 110 ML IV SCH (14:48)
--- NOTE | 2019-03-09 14:49 | NUR ---
NURSE NOTES: Amikacin IVPB administered late d/t potassium replacement IVPB infusing.
--- NOTE | 2019-03-09 15:03 | Internal Med Progress Note ---
Subjective Date of Service: Mar 09, 2019 Physician Name Darrick Stout Attending Physician Yannick Marshall MD Current Medications Medications (Trade) Dose Ordered Sig/Jennifer Route PRN Reason Start Time Stop Time Status Last Admin Dose Admin Acetaminophen (Tylenol) 650 mg Q4H PRN ORAL fever 03/07/19 11:30 04/06/19 07:29 03/09/19 08:10 Albuterol/ Ipratropium (Albuterol/ Ipratropium) 3 ml Q4H PRN HHN Shortness of Breath 03/07/19 09:00 03/12/19 08:59 03/09/19 04:23 Amikacin Protocol (Amikacin pharmacy to dose) 1 ea DAILY PRN MISC AMIKACIN 03/07/19 10:30 04/06/19 10:29 Amikacin Sulfate 350 mg/Sodium Chloride 111.4 ml @ 111.4 mls/ hr Q24H IV 03/09/19 13:00 03/16/19 12:59 03/09/19 14:48 Aspirin (ASA) 81 mg DAILY ORAL 03/09/19 09:00 04/08/19 08:59 03/09/19 08:09 Chlorhexidine Gluconate (Rani-Hex 2%) 1 applic DAILY@2000 TOPIC 03/07/19 20:00 04/06/19 19:59 03/08/19 21:30 Dextrose 1,000 ml @ 100 mls/hr Q10H IV 03/08/19 12:00 04/07/19 11:59 03/09/19 07:53 Dextrose (Dextrose 50%) 25 ml Q30M PRN IV Hypoglycemia 03/07/19 15:15 04/06/19 15:14 Dextrose (Dextrose 50%) 50 ml Q30M PRN IV Hypoglycemia 03/07/19 15:15 04/06/19 15:14 Ertapenem 1 gm/ Sodium Chloride 55 ml @ 110 mls/hr Q24H IV 03/08/19 22:00 03/13/19 21:59 03/08/19 21:52 Heparin Sodium (Porcine) (Heparin 5000 units/ml) 5,000 units EVERY 12 HOURS SUBQ 03/07/19 09:00 04/06/19 08:59 03/08/19 08:44 Insulin Aspart (NovoLOG) Q6HR SUBQ 03/07/19 15:15 04/06/19 15:14 03/09/19 11:55 Morphine Sulfate (Morphine Sulfate) 2 mg Q4H PRN IVP Severe Pain (Pain Scale 7-10) 03/07/19 09:00 03/14/19 08:59 Norepinephrine Bitartrate 4 mg/ Dextrose 254 ml @ 0 mls/hr Q24H IV 03/07/19 14:30 04/06/19 14:29 03/09/19 14:52 Ondansetron HCl (Zofran) 4 mg Q6H PRN IVP Nausea & Vomiting 03/07/19 09:00 04/06/19 08:59 Pantoprazole (Protonix) 40 mg Q12HR IVP 03/07/19 21:00 04/06/19 08:59 03/09/19 08:09 Polyethylene Glycol (Miralax) 17 gm DAILYPRN PRN ORAL Constipation 03/08/19 07:30 04/06/19 07:29 Potassium Phosphate 30 mm/ Sodium Chloride 285 ml @ 47.5 mls/hr ONCE IV 03/09/19 10:00 03/09/19 16:00 03/09/19 09:41 Potassium Chloride 100 ml @ 100 mls/hr Q2H IVPB 03/09/19 11:00 03/09/19 15:59 03/09/19 13:09 Quetiapine Fumarate (SEROquel) 12.5 mg BID ORAL 03/07/19 09:00 04/06/19 08:59 03/09/19 08:09 Vancomycin HCl (Vanco rx to dose) 1 ea DAILY PRN MISC VANCOMYCIN 03/07/19 10:30 04/06/19 10:29 Vancomycin HCl 750 mg/Dextrose 275 ml @ 183.333 mls/hr Q24H IVPB 03/09/19 14:00 03/14/19 13:59 Allergies: Coded Allergies: No Known Allergies (Unverified , 03/07/19) ROS Limited/Unobtainable: Yes Subjective 68 YO M admitted with hypotension. Now sepsis. ICU. Cover for Int Magalys Marshall Objective Last Vital Signs Date Time Temp Pulse Resp B/P (MAP) Pulse Ox O2 Delivery O2 Flow Rate FiO2 03/09/19 14:52 102/55 03/09/19 14:00 102 31 100 Room Air 03/09/19 12:00 99.0 03/09/19 04:35 21 03/08/19 06:00 3.0 Laboratory Tests Test 03/09/19 05:15 03/09/19 06:05 White Blood Count 7.8 K/UL (4.8-10.8) Red Blood Count 4.14 M/UL (4.70-6.10) L Hemoglobin 11.8 G/DL (14.2-18.0) L Hematocrit 38.2 % (42.0-52.0) L Mean Corpuscular Volume 92 FL (80-99) Mean Corpuscular Hemoglobin 28.4 PG (27.0-31.0) Mean Corpuscular Hemoglobin Concent 30.8 G/DL (32.0-36.0) L Red Cell Distribution Width 15.5 % (11.6-14.8) H Platelet Count 117 K/UL (150-450) L Mean Platelet Volume 8.2 FL (6.5-10.1) Neutrophils (%) (Auto) 53.5 % (45.0-75.0) Lymphocytes (%) (Auto) 40.4 % (20.0-45.0) Monocytes (%) (Auto) 5.3 % (1.0-10.0) Eosinophils (%) (Auto) 0.3 % (0.0-3.0) Basophils (%) (Auto) 0.5 % (0.0-2.0) Sodium Level 161 MMOL/L (136-145) *H Potassium Level 2.2 MMOL/L (3.5-5.1) *L Chloride Level 127 MMOL/L (98-107) H Carbon Dioxide Level 23 MMOL/L (21-32) Anion Gap 11 mmol/L (5-15) Blood Urea Nitrogen 16 mg/dL (7-18) Creatinine 0.8 MG/DL (0.55-1.30) Estimat Glomerular Filtration Rate > 60 mL/min (>60) Glucose Level 101 MG/DL (74-106) Calcium Level 8.6 MG/DL (8.5-10.1) Phosphorus Level 2.0 MG/DL (2.5-4.9) L Magnesium Level 1.8 MG/DL (1.8-2.4) Total Bilirubin 0.5 MG/DL (0.2-1.0) Aspartate Amino Transf (AST/SGOT) 28 U/L (15-37) Alanine Aminotransferase (ALT/SGPT) 28 U/L (12-78) Alkaline Phosphatase 63 U/L (46-116) Troponin I 0.071 ng/mL (0.000-0.056) C-Reactive Protein, Quantitative 11.9 mg/dL (0.00-0.90) H Pro-B-Type Natriuretic Peptide 1903 pg/mL (0-125) H Total Protein 6.9 G/DL (6.4-8.2) Albumin 2.5 G/DL (3.4-5.0) L Globulin 4.4 g/dL Albumin/Globulin Ratio 0.6 (1.0-2.7) L Arterial Blood pH 7.470 (7.350-7.450) Arterial Blood Partial Pressure CO2 25.0 mmHg (35.0-45.0) L Arterial Blood Partial Pressure O2 52.6 mmHg (75.0-100.0) L Arterial Blood HCO3 17.8 mmol/L (22.0-26.0) *L Arterial Blood Oxygen Saturation 90.4 % (95-100) L Arterial Blood Base Excess -4.4 (-2-2) L Sudheer Test Positive Microbiology Date/Time Source Procedure Growth Status 03/07/19 06:00 Blood Blood Culture - Preliminary NO GROWTH AFTER 24 HOURS Resulted 03/07/19 05:45 Blood Blood Culture - Preliminary NO GROWTH AFTER 24 HOURS Resulted 03/07/19 09:00 Nasal Nares MRSA Culture - Final Staphylococcus Aureus - Mrsa Complete 03/07/19 13:40 Urine,Clean Catch Urine Culture - Final Proteus Mirabilis Complete 03/07/19 06:40 Urine,Clean Catch Urine Culture - Final Proteus Mirabilis Complete 03/07/19 09:00 Rectum VRE Culture - Final NO VANCOMYCIN RESISTANT ENTEROCOCCUS ... Complete 03/07/19 09:00 Rectum - Final NO CARBAPENEM-RESISTANT ENTEROBACTERI... Complete Intake and Output 03/08/19 03/09/19 18:59 06:59 Intake Total 1250.56 ml 1328.75 ml Output Total 1145 ml 950 ml Balance 105.56 ml 378.75 ml Intake Oral 0 ml IV Total 1250.56 ml 1328.75 ml Output Urine Total 1145 ml 950 ml # Bowel Movements 2 Objective PHYSICAL EXAMINATION: GENERAL: The patient is awake, opens his eyes, cachectic, malnutrition. HEAD AND NECK: Pupils are equal and reactive to light. Anicteric. Neck was supple. No JVD. LUNGS: Clear. No wheezing or rales. Decreased air in bases. Coarse breath sounds. HEART: S1, S2. Tachycardic. No murmur or gallops. ABDOMEN: Soft, nondistended, and nontender. Positive bowel sounds. G-tube is in place. RECTAL/GENITOURINARY: The patient has a Pelayo catheter. EXTREMITIES: Bilateral AKA was noted with stump intact. NEUROLOGIC: Limited secondary to the patient's status. The patient is moving the left upper extremity. Right upper extremity is flaccid. REVOLVING INVENTORY CLERK II through XII grossly intact, but it is very hard to follow. Neurologic examination is very limited secondary to the patient's status. Assessment/Plan Assessment/Plan ASSESSMENT: 1. Sepsis, septic shock most likely secondary to the urinary tract infection. 2. Acute kidney injury on chronic renal insufficiency due to severe dehydration. 3. Urinary tract infection. 4. Hypertension, presently hypotensive. 5. History of CVA. 6. Dysphagia, status post PEG. 7. Diabetes type 2. 8. Status post bilateral AKA. 9. Advanced dementia. 10. History of stroke with right-sided hemiparesis. 11. Hypernatremia/hypokalemia PLAN: 1. Admit the patient to the ICU. 2. Urine culture=Proteus. Continue amikacin, ertapenem and vanco per ID= Dr Connolly Code status at this time is Full Code. Resume chcf medication, G-tube feeding. Darrick Stout MD Mar 09, 2019 15:03
[2019-03-09] MEDS: Vancomycin 750mg/D5W 275ml IVPB SCH ×2 (16:39)
--- NOTE | 2019-03-09 17:00 | NUR ---
NURSE NOTES: Peripheral Edp Equipment Operator unsuccessful in obtaining sputum sample, no sputum production noted.
--- NOTE | 2019-03-09 19:10 | NUR ---
HAND-OFF: Report given to SARAH Garcia.
--- NOTE | 2019-03-09 19:11 | NUR ---
NURSE NOTES: Received endorsement from SARAH Cantu. Patient opens eyes spontaneously. Non verbal. On room air. With GT, on NPO. Right subclavian TLC. Receiving Levophed 6mcg/min, D5 100ml/hr. Bilateral stump kept elevated. Head of bed elevated. Locked and in low position. Call light within reach. Bed alarm on.
--- NOTE | 2019-03-09 20:05 | Cardiology Progress Note ---
Assessment/Plan Assessment/Plan sstill on low dose of norepinephrine, weaning off Subjective Subjective the patient is non verbal and does not have any comments Objective Last 24 Hour Vital Signs Date Time Temp Pulse Resp B/P (MAP) Pulse Ox O2 Delivery O2 Flow Rate FiO2 03/09/19 19:21 101 20 100 Room Air 21 03/09/19 19:00 115/49 03/09/19 19:00 101 31 115/49 97 Room Air 03/09/19 18:30 108 32 114/60 98 Room Air 03/09/19 18:15 108 35 114/60 99 Room Air 03/09/19 18:00 114/60 03/09/19 18:00 104 31 114/60 100 Room Air 03/09/19 17:45 102 36 99/61 99 Room Air 03/09/19 17:30 103 35 99/61 99 Room Air 03/09/19 17:00 103 32 113/60 100 Room Air 03/09/19 17:00 113/60 03/09/19 16:30 102 35 113/60 98 Room Air 03/09/19 16:00 98.7 103 35 113/53 100 Room Air 03/09/19 16:00 113/53 03/09/19 16:00 Room Air 03/09/19 15:37 104 03/09/19 15:30 104 35 111/44 100 Room Air 03/09/19 15:00 102/55 03/09/19 15:00 102 29 107/54 100 Room Air 03/09/19 14:52 102/55 03/09/19 14:30 102 32 107/54 100 Room Air 03/09/19 14:00 102 31 102/55 100 Room Air 03/09/19 13:30 102 32 107/56 100 Room Air 03/09/19 13:00 105/56 03/09/19 13:00 84 34 105/56 100 Room Air 03/09/19 12:30 84 29 111/58 100 Room Air 03/09/19 12:00 Room Air 03/09/19 12:00 99.0 100 31 103/62 100 Room Air 03/09/19 12:00 103/62 03/09/19 11:55 102 03/09/19 11:30 101 29 95/50 99 Room Air 03/09/19 11:15 81 24 114/56 99 Room Air 03/09/19 11:00 83 30 114/56 99 Room Air 03/09/19 11:00 114/56 03/09/19 10:45 94/51 03/09/19 10:00 93 22 99/53 99 Room Air 03/09/19 09:45 99 36 92/54 100 Room Air 03/09/19 09:30 100 31 92/54 100 Room Air 03/09/19 09:15 99 32 102/53 100 Room Air 03/09/19 09:00 100.0 102 32 91/45 96 Room Air 03/09/19 09:00 72/46 03/09/19 08:45 72/46 03/09/19 08:45 103 34 79/48 98 Room Air 03/09/19 08:40 100.0 03/09/19 08:30 104 34 75/45 100 Room Air 03/09/19 08:15 102 33 75/45 100 Room Air 03/09/19 08:00 92/48 03/09/19 08:00 102 03/09/19 08:00 Room Air 03/09/19 08:00 101.5 104 36 92/48 99 Room Air 03/09/19 07:30 108 36 98/53 97 03/09/19 07:00 110 34 114/69 99 03/09/19 06:30 113 32 97 03/09/19 06:00 108 36 105/57 96 Room Air 03/09/19 06:00 102/52 03/09/19 05:30 110 34 117/70 95 Room Air 03/09/19 05:00 115 32 106/55 95 Room Air 03/09/19 05:00 106/55 03/09/19 04:35 110 30 98 Room Air 21 03/09/19 04:30 109 30 124/57 100 Room Air 03/09/19 04:24 109 30 96 03/09/19 04:00 98.8 101 29 106/60 95 Room Air 03/09/19 04:00 Room Air 03/09/19 04:00 106/60 03/09/19 04:00 102 03/09/19 03:30 107 35 91/40 99 03/09/19 03:00 105 32 118/55 99 Room Air 03/09/19 03:00 118/55 03/09/19 02:30 107 38 106/61 99 Room Air 03/09/19 02:00 104/57 03/09/19 02:00 104 31 104/57 100 Room Air 03/09/19 01:30 102 29 118/47 99 Room Air 03/09/19 01:00 104 28 118/58 97 Room Air 03/09/19 01:00 118/58 03/09/19 00:30 102 35 111/51 99 Room Air 03/09/19 00:00 106/56 03/09/19 00:00 98.8 89 29 106/56 99 Room Air 03/09/19 00:00 Room Air 03/09/19 00:00 90 03/08/19 23:30 83 28 112/55 99 03/08/19 23:00 105 29 108/65 98 03/08/19 23:00 108/65 03/08/19 22:30 102 31 115/67 98 03/08/19 22:00 104 29 103/56 98 Room Air 03/08/19 22:00 103/56 03/08/19 21:30 104 37 105/82 98 Room Air 03/08/19 21:00 112/57 03/08/19 21:00 82 26 112/57 98 Room Air 03/08/19 20:30 85 30 103/58 98 Room Air General Appearance: lethargic, other - non verbal EENT: PERRL/EOMI Neck: no JVD Rhythm: NSR Cardiovascular: regular rhythm Respiratory/Chest: rhonchi - bilaterally Abdomen: other - g tube Intake and Output 03/08/19 03/09/19 18:59 06:59 Intake Total 1250.56 ml 1328.75 ml Output Total 1145 ml 950 ml Balance 105.56 ml 378.75 ml Intake Oral 0 ml IV Total 1250.56 ml 1328.75 ml Output Urine Total 1145 ml 950 ml # Bowel Movements 2 Laboratory Tests Test 03/09/19 05:15 03/09/19 06:05 White Blood Count 7.8 K/UL (4.8-10.8) Red Blood Count 4.14 M/UL (4.70-6.10) L Hemoglobin 11.8 G/DL (14.2-18.0) L Hematocrit 38.2 % (42.0-52.0) L Mean Corpuscular Volume 92 FL (80-99) Mean Corpuscular Hemoglobin 28.4 PG (27.0-31.0) Mean Corpuscular Hemoglobin Concent 30.8 G/DL (32.0-36.0) L Red Cell Distribution Width 15.5 % (11.6-14.8) H Platelet Count 117 K/UL (150-450) L Mean Platelet Volume 8.2 FL (6.5-10.1) Neutrophils (%) (Auto) 53.5 % (45.0-75.0) Lymphocytes (%) (Auto) 40.4 % (20.0-45.0) Monocytes (%) (Auto) 5.3 % (1.0-10.0) Eosinophils (%) (Auto) 0.3 % (0.0-3.0) Basophils (%) (Auto) 0.5 % (0.0-2.0) Sodium Level 161 MMOL/L (136-145) *H Potassium Level 2.2 MMOL/L (3.5-5.1) *L Chloride Level 127 MMOL/L (98-107) H Carbon Dioxide Level 23 MMOL/L (21-32) Anion Gap 11 mmol/L (5-15) Blood Urea Nitrogen 16 mg/dL (7-18) Creatinine 0.8 MG/DL (0.55-1.30) Estimat Glomerular Filtration Rate > 60 mL/min (>60) Glucose Level 101 MG/DL (74-106) Calcium Level 8.6 MG/DL (8.5-10.1) Phosphorus Level 2.0 MG/DL (2.5-4.9) L Magnesium Level 1.8 MG/DL (1.8-2.4) Total Bilirubin 0.5 MG/DL (0.2-1.0) Aspartate Amino Transf (AST/SGOT) 28 U/L (15-37) Alanine Aminotransferase (ALT/SGPT) 28 U/L (12-78) Alkaline Phosphatase 63 U/L (46-116) Troponin I 0.071 ng/mL (0.000-0.056) C-Reactive Protein, Quantitative 11.9 mg/dL (0.00-0.90) H Pro-B-Type Natriuretic Peptide 1903 pg/mL (0-125) H Total Protein 6.9 G/DL (6.4-8.2) Albumin 2.5 G/DL (3.4-5.0) L Globulin 4.4 g/dL Albumin/Globulin Ratio 0.6 (1.0-2.7) L Arterial Blood pH 7.470 (7.350-7.450) Arterial Blood Partial Pressure CO2 25.0 mmHg (35.0-45.0) L Arterial Blood Partial Pressure O2 52.6 mmHg (75.0-100.0) L Arterial Blood HCO3 17.8 mmol/L (22.0-26.0) *L Arterial Blood Oxygen Saturation 90.4 % (95-100) L Arterial Blood Base Excess -4.4 (-2-2) L Sudheer Test Positive Microbiology Date/Time Source Procedure Growth Status 03/07/19 06:00 Blood Blood Culture - Preliminary NO GROWTH AFTER 24 HOURS Resulted 03/07/19 05:45 Blood Blood Culture - Preliminary NO GROWTH AFTER 24 HOURS Resulted 03/07/19 09:00 Nasal Nares MRSA Culture - Final Staphylococcus Aureus - Mrsa Complete 03/07/19 13:40 Urine,Clean Catch Urine Culture - Final Proteus Mirabilis Complete 03/07/19 06:40 Urine,Clean Catch Urine Culture - Final Proteus Mirabilis Complete 03/07/19 09:00 Rectum VRE Culture - Final NO VANCOMYCIN RESISTANT ENTEROCOCCUS ... Complete 03/07/19 09:00 Rectum - Final NO CARBAPENEM-RESISTANT ENTEROBACTERI... Complete Anh Sutherland MD Mar 09, 2019 20:05
[2019-03-09] MEDS: Dyna-Hex 2% Top Sol 2oz TOPIC SCH (20:12)
--- NOTE | 2019-03-09 21:00 | NUR ---
NURSE NOTES: Patient asleep. No shortness of breath. No sign of pain or discomfort.
[2019-03-09] MEDS: Ertapenem 1 GM in NS 55 ML IV SCH (21:49)
[2019-03-10] VITALS (69 sets, daily range): BP systolic 75–120; BP diastolic 35–62
--- NOTE | 2019-03-10 | NUR ---
NURSE NOTES: Patient asleep. Controlled Afib on the monitor. Blood sugar checked and insulin given as per sliding scale. Levophed at 2 mcg/min.
[2019-03-10] MEDS: Albuterol/Ipratropium 3ml neb HHN PRN (01:49)
--- NOTE | 2019-03-10 02:00 | NUR ---
NURSE NOTES: Bed bath, oral care, change of linens done. BP has been stable on Levophed 2mcg/min, held at this time. Will continue to monitor.
--- NOTE | 2019-03-10 03:00 | NUR ---
NURSE NOTES: SBP at 70s mmHg. Levophed restarted at 2mcg/min
--- NOTE | 2019-03-10 04:00 | NUR ---
NURSE NOTES: Sputum sample collected and sent to the lab
[2019-03-10 04:55] LABS: BASOPHILS % (AUTO) 0.8 % (0.0-2.0); EOSINOPHILS % (AUTO) 0.8 % (0.0-3.0); HEMATOCRIT 35.5 % (42.0-52.0); HEMOGLOBIN 11.3 G/DL (14.2-18.0); LYMPHOCYTES % (AUTO) 32.8 % (20.0-45.0); MEAN CORPUSCULAR VOLUME 91 FL (80-99); MONOCYTES % (AUTO) 6.6 % (1.0-10.0); PLATELET COUNT 120 K/UL (150-450); RED BLOOD COUNT 3.91 M/UL (4.70-6.10); RED CELL DISTRIBUTION WIDTH 15.1 % (11.6-14.8); WHITE BLOOD COUNT 7.3 K/UL (4.8-10.8)
[2019-03-10 05:28] LABS: ALANINE AMINOTRANSFERASE 21 U/L (12-78); ALBUMIN 2.1 G/DL (3.4-5.0); ALBUMIN/GLOBULIN RATIO 0.5 (1.0-2.7); ALKALINE PHOSPHATASE 58 U/L (46-116); ANION GAP 10 mmol/L (5-15); ASPARTATE AMINO TRANSFERASE 23 U/L (15-37); BILIRUBIN,TOTAL 0.5 MG/DL (0.2-1.0); BLOOD UREA NITROGEN 8 mg/dL (7-18); CALCIUM 8.1 MG/DL (8.5-10.1); CARBON DIOXIDE 20 MMOL/L (21-32); CHLORIDE 120 MMOL/L (98-107); CREATININE 0.6 MG/DL (0.55-1.30); PHOSPHORUS 1.8 MG/DL (2.5-4.9); SODIUM 150 MMOL/L (136-145)
[2019-03-10] MEDS: NovoLOG Insulin Flexpen SUBQ SCH ×3 (06:00→18:01)
--- NOTE | 2019-03-10 06:30 | NUR ---
NURSE NOTES: Blood sugar checked, within normal limit. Patient asleep. On Levophed 2 mcg/min
--- NOTE | 2019-03-10 07:15 | NUR ---
NURSE NOTES: Received pt from SARAH Garcia. Patient is asleep, responds to tactile stimuli/non-verbal. No signs of distress. RA; Spo2 100%; even and unlabored breathing. Course rhonchi heard bilateral b/s. 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 Ax temp 100.4. Right subclavian TLC running levophed at 2mcg/kg/hr and D5W@100ml/hr. Will titrate to meet MAP >65. PEG clamped and NPO maintained. FC draining well to gravity. Bilateral AKA, left stump stage 2 dressing intact. Bed locked, alarmed and in lowest position. Will continue plan of care.
--- NOTE | 2019-03-10 07:17 | NUR ---
HAND-OFF: Report given to Amanda Choi RN.
--- NOTE | 2019-03-10 07:50 | NUR ---
NURSE NOTES: Increased levophed to 4mcg/kg/hr, BP 81/50.
[2019-03-10] MEDS: Pantoprazole Inj IVP SCH ×2 (08:55→21:06)
[2019-03-10] MEDS: Aspirin Baby 81mg ORAL SCH (08:55)
[2019-03-10] MEDS: Heparin 5000 units/ml inj SUBQ SCH ×2 (08:56→21:07)
--- NOTE | 2019-03-10 09:36 | NUR ---
NURSE NOTES: Received orders to add one more KCL [address] Cagle.
--- NOTE | 2019-03-10 10:17 | Nephrology Progress Note ---
Assessment/Plan Problem List: (1) Renal failure (ARF), acute on chronic (2) Hypernatremia (3) Dehydration (4) Hypokalemia Assessment Acute Renal Failure- ? Underlying CKD Dehydration Sepsis / UTI Dementia PEG s/p CVA s/p Bilateral AKA Decubiti Plan today's labs noted Hydrate + K and Phos supplement IV Monitor I&O and renal parameters avoid nephrotoxics albumin bolus BS abd BP check Subjective ROS Limited/Unobtainable: No Constitutional: Reports: malaise, weakness Objective Objective Last 24 Hour Vital Signs Date Time Temp Pulse Resp B/P (MAP) Pulse Ox O2 Delivery O2 Flow Rate FiO2 03/10/19 09:45 112 28 97 Room Air 21 03/10/19 08:00 Room Air 03/10/19 07:22 94/37 03/10/19 06:15 104 37 86/51 97 Room Air 03/10/19 06:00 83/48 03/10/19 06:00 104 37 83/48 97 Room Air 03/10/19 05:45 106 36 84/55 96 Room Air 03/10/19 05:30 110 38 90/47 97 Room Air 03/10/19 05:15 107 36 82/52 97 Room Air 03/10/19 05:00 90/47 03/10/19 05:00 108 36 92/56 97 Room Air 03/10/19 04:30 111 34 95/61 96 Room Air 03/10/19 04:00 98.1 114 38 95/54 96 Room Air 03/10/19 04:00 120 03/10/19 04:00 Room Air 03/10/19 04:00 110/61 03/10/19 03:45 116 41 109/58 95 Room Air 03/10/19 03:30 120 42 93/55 95 Room Air 03/10/19 03:15 116 35 89/54 95 Room Air 03/10/19 03:00 78/47 03/10/19 03:00 121 38 87/51 98 Room Air 03/10/19 02:30 117 38 103/51 97 Room Air 03/10/19 02:15 121 43 100/62 93 Room Air 03/10/19 02:00 100/62 03/10/19 02:00 120 36 107/50 100 Room Air 03/10/19 01:50 110 37 99 Nasal Cannula 2.0 28 108 38 97 03/10/19 01:45 110 37 98/52 100 Room Air 03/10/19 01:30 107 40 96/49 100 Room Air 03/10/19 01:20 110 36 120/62 99 Room Air 03/10/19 01:00 108 33 108/61 100 Room Air 03/10/19 01:00 120/62 03/10/19 00:45 104 32 117/42 99 Room Air 03/10/19 00:30 99 34 105/51 100 Room Air 03/10/19 00:15 102 31 108/47 100 Room Air 03/10/19 00:00 97.9 98 34 97/48 100 Room Air 03/10/19 00:00 108/47 03/10/19 00:00 96 03/10/19 00:00 Room Air 03/09/19 23:00 96 33 108/59 100 Room Air 03/09/19 23:00 108/59 03/09/19 23:00 96 33 108/59 100 Room Air 03/09/19 22:30 95 33 107/51 100 Room Air 03/09/19 22:00 99 37 100/49 99 Room Air 03/09/19 22:00 100/49 03/09/19 22:00 99 37 100/49 99 Room Air 03/09/19 21:30 96 35 102/53 100 Room Air 03/09/19 21:00 97/48 03/09/19 21:00 96 33 97/48 100 Room Air 03/09/19 20:30 99 34 111/52 97 Room Air 03/09/19 20:13 102/50 03/09/19 20:00 98.0 99 31 102/50 100 Room Air 03/09/19 20:00 Room Air 03/09/19 20:00 99 03/09/19 20:00 102/50 03/09/19 19:30 98 29 112/59 97 Room Air 03/09/19 19:21 101 20 100 Room Air 21 03/09/19 19:00 115/49 03/09/19 19:00 101 31 115/49 97 Room Air 03/09/19 18:30 108 32 114/60 98 Room Air 03/09/19 18:15 108 35 114/60 99 Room Air 10/13/19 18:00 114/60 03/09/19 18:00 104 31 114/60 100 Room Air 03/09/19 17:45 102 36 99/61 99 Room Air 03/09/19 17:30 103 35 99/61 99 Room Air 03/09/19 17:00 103 32 113/60 100 Room Air 03/09/19 17:00 113/60 03/09/19 16:30 102 35 113/60 98 Room Air 03/09/19 16:00 98.7 103 35 113/53 100 Room Air 03/09/19 16:00 113/53 03/09/19 16:00 Room Air 03/09/19 15:37 104 03/09/19 15:30 104 35 111/44 100 Room Air 03/09/19 15:00 102/55 03/09/19 15:00 102 29 107/54 100 Room Air 03/09/19 14:52 102/55 03/09/19 14:30 102 32 107/54 100 Room Air 03/09/19 14:00 102 31 102/55 100 Room Air 03/09/19 13:30 102 32 107/56 100 Room Air 03/09/19 13:00 105/56 03/09/19 13:00 84 34 105/56 100 Room Air 03/09/19 12:30 84 29 111/58 100 Room Air 03/09/19 12:00 Room Air 03/09/19 12:00 99.0 100 31 103/62 100 Room Air 03/09/19 12:00 103/62 03/09/19 11:55 102 03/09/19 11:30 101 29 95/50 99 Room Air 03/09/19 11:15 81 24 114/56 99 Room Air 03/09/19 11:00 83 30 114/56 99 Room Air 03/09/19 11:00 114/56 03/09/19 10:45 94/51 Intake and Output 03/09/19 03/10/19 19:00 07:00 Intake Total 2397.65 ml 1265.49 ml Output Total 820 ml 965 ml Balance 1577.65 ml 300.49 ml Intake Oral 0 ml 0 ml Free Water 60 ml IV Total 2337.65 ml 1265.49 ml Output Urine Total 820 ml 965 ml # Bowel Movements 1 1 Laboratory Tests 03/10/19 03:35: White Blood Count 7.3, Red Blood Count 3.91L, Hemoglobin 11.3L, Hematocrit 35.5L , Mean Corpuscular Volume 91, Mean Corpuscular Hemoglobin 28.9, Mean Corpuscular Hemoglobin Concent 31.8L, Red Cell Distribution Width 15.1H, Platelet Count 120L, Mean Platelet Volume 8.0, Neutrophils (%) (Auto) 59.0, Lymphocytes (%) (Auto) 32.8, Monocytes (%) (Auto) 6.6, Eosinophils (%) (Auto) 0.8, Basophils (%) (Auto) 0.8, Sodium Level 150#H, Potassium Level 3.0L, Chloride Level 120H, Carbon Dioxide Level 20L, Anion Gap 10, Blood Urea Nitrogen 8, Creatinine 0.6, Estimat Glomerular Filtration Rate > 60, Glucose Level 125H, Calcium Level 8.1L, Phosphorus Level 1.8L, Magnesium Level 1.4L, Total Bilirubin 0.5, Aspartate Amino Transf (AST/SGOT) 23, Alanine Aminotransferase (ALT/SGPT) 21, Alkaline Phosphatase 58, Troponin I 0.022, C- Reactive Protein, Quantitative 10.9H, Pro-B-Type Natriuretic Peptide 2469H, Total Protein 6.4, Albumin 2.1L, Globulin 4.3, Albumin/Globulin Ratio 0.5L Height (Feet): 3 Height (Inches): 6.00 Weight (Pounds): 115 General Appearance: no apparent distress, lethargic Objective no change Gennaro Cagle MD Mar 10, 2019 10:17
--- NOTE | 2019-03-10 10:45 | NUR ---
NURSE NOTES: Increased levophed to 6mcg/kg/hr, BP 75/46.
--- NOTE | 2019-03-10 10:45 | NUR ---
RD ASSESSMENT & RECOMMENDATIONS SEE CARE ACTIVITY FOR COMPLETE ASSESSMENT DAILY ESTIMATED NEEDS: Needs based on Sepsis, wound/ 51.3 kg 25-35 kcals/kg 1283- 1796 total kcals 1.25-2 g protein/kg 64-103 g total protein 25-30 mL/kg 1927-3289 total fluid mLs NUTRITION DIAGNOSIS: * Increased kcal and pro needs r/t sepsis and wound healing as evidenced by pt w/ elev WBC (13.1-> wnl), BG (205-> 125 101), elev RR(28), elev HR (112), hypotensive, on pressor support, w/ sacral + lt stump wounds (stage 2 per RN). * Swallowing difficulty R/T dysphagia as evidenced by pt is PEG dep. * Altered nutrition related lab values R/T dehydration as evidenced by elev Na (165* -> 150), elev BUN (118 -> wnl). CURRENT TF:NPO ENTERAL NUTRITION RECOMMENDATIONS: Glucerna 1.2 @ 50ml/hr x 24 hrs to provide 1200ml, 1440kcal, 72g prot, 966ml free water * As medically able rec to start GT feeds of Glucerna 1.2 @ 20ml/hr for 6 hrs. * With HD stability, advance as tolerated 10ml/hr q 4-6 hrs to goal * HOB over 30 degrees/ water flush per MD WITHOUT HEMODYNAMIC STABILITY, rec trophic feeding of Glucerna 1.2 @ 15-20ml/hr to maintain gut integrity ADDITIONAL RECOMMENDATIONS: 1) CALIBRATED bedscale wt, weekly wt monitoring ([facility] WT: 113#) 2) Monitor lytes, replete as needed (low K, phos, mag) 3) WOUND CARE: add Vit C 250mg QD, Wally 1pkt BID via PEG : rec wound eval (sacrum + lt stump) 4) Monitor HD stability - on pressor support at this time -> rec trophic feeds without HD stability .
--- NOTE | 2019-03-10 10:51 | Pulmonolgy Critical Care Note ---
Critical Care - Asmt/Plan Problems: (1) Nosocomial pneumonia (2) Severe sepsis (3) Renal failure (ARF), acute on chronic (4) CVA (cerebral vascular accident) (5) S/P AKA (above knee amputation) bilateral (6) Decubitus skin ulcer (7) Pleural effusion on left (8) Alzheimer's dementia (9) Feeding by G-tube Respiratory: monitor respiratory rate, adjust FIO2, CXR Cardiac: continue pressors, stop pressors, continue to monitor HR/BP Renal: F/U I&O, keep IV fluid Infectious Disease: check cultures, continue antibiotics, add antibiotics Gastrointestinal: continue feedings/current rate, abdominal imaging Endocrine: monitor blood sugar, check TSH, oral diabetic meds Hematologic: monitor H/H Neurologic: PRN Ativan, PRN Morphine Affect: PRN ativan Prophylaxis: Protonix, Heparin Disposition: transfer to Time Spent (Minutes): 40 Notes Reviewed: software developer consultant, renal Discussed with: nurses, consultants, caseworker intakehuman resources manager - Objective Last 24 Hour Vital Signs Date Time Temp Pulse Resp B/P (MAP) Pulse Ox O2 Delivery O2 Flow Rate FiO2 03/10/19 09:45 112 28 97 Room Air 21 03/10/19 08:00 Room Air 03/10/19 07:22 94/37 03/10/19 06:15 104 37 86/51 97 Room Air 03/10/19 06:00 83/48 03/10/19 06:00 104 37 83/48 97 Room Air 03/10/19 05:45 106 36 84/55 96 Room Air 03/10/19 05:30 110 38 90/47 97 Room Air 03/10/19 05:15 107 36 82/52 97 Room Air 03/10/19 05:00 90/47 03/10/19 05:00 108 36 92/56 97 Room Air 03/10/19 04:30 111 34 95/61 96 Room Air 03/10/19 04:00 98.1 114 38 95/54 96 Room Air 03/10/19 04:00 120 03/10/19 04:00 Room Air 03/10/19 04:00 110/61 03/10/19 03:45 116 41 109/58 95 Room Air 03/10/19 03:30 120 42 93/55 95 Room Air 03/10/19 03:15 116 35 89/54 95 Room Air 03/10/19 03:00 78/47 03/10/19 03:00 121 38 87/51 98 Room Air 03/10/19 02:30 117 38 103/51 97 Room Air 03/10/19 02:15 121 43 100/62 93 Room Air 03/10/19 02:00 100/62 03/10/19 02:00 120 36 107/50 100 Room Air 03/10/19 01:50 110 37 99 Nasal Cannula 2.0 28 108 38 97 03/10/19 01:45 110 37 98/52 100 Room Air 03/10/19 01:30 107 40 96/49 100 Room Air 03/10/19 01:20 110 36 120/62 99 Room Air 03/10/19 01:00 108 33 108/61 100 Room Air 03/10/19 01:00 120/62 03/10/19 00:45 104 32 117/42 99 Room Air 03/10/19 00:30 99 34 105/51 100 Room Air 03/10/19 00:15 102 31 108/47 100 Room Air 03/10/19 00:00 97.9 98 34 97/48 100 Room Air 03/10/19 00:00 108/47 03/10/19 00:00 96 03/10/19 00:00 Room Air 03/09/19 23:00 96 33 108/59 100 Room Air 03/09/19 23:00 108/59 03/09/19 23:00 96 33 108/59 100 Room Air 03/09/19 22:30 95 33 107/51 100 Room Air 03/09/19 22:00 99 37 100/49 99 Room Air 03/09/19 22:00 100/49 03/09/19 22:00 99 37 100/49 99 Room Air 03/09/19 21:30 96 35 102/53 100 Room Air 03/09/19 21:00 97/48 03/09/19 21:00 96 33 97/48 100 Room Air 03/09/19 20:30 99 34 111/52 97 Room Air 03/09/19 20:13 102/50 03/09/19 20:00 98.0 99 31 102/50 100 Room Air 03/09/19 20:00 Room Air 03/09/19 20:00 99 03/09/19 20:00 102/50 10/13/19 19:30 98 29 112/59 97 Room Air 03/09/19 19:21 101 20 100 Room Air 21 03/09/19 19:00 115/49 03/09/19 19:00 101 31 115/49 97 Room Air 03/09/19 18:30 108 32 114/60 98 Room Air 03/09/19 18:15 108 35 114/60 99 Room Air 03/09/19 18:00 114/60 03/09/19 18:00 104 31 114/60 100 Room Air 03/09/19 17:45 102 36 99/61 99 Room Air 03/09/19 17:30 103 35 99/61 99 Room Air 03/09/19 17:00 103 32 113/60 100 Room Air 03/09/19 17:00 113/60 03/09/19 16:30 102 35 113/60 98 Room Air 03/09/19 16:00 98.7 103 35 113/53 100 Room Air 03/09/19 16:00 113/53 03/09/19 16:00 Room Air 03/09/19 15:37 104 03/09/19 15:30 104 35 111/44 100 Room Air 03/09/19 15:00 102/55 03/09/19 15:00 102 29 107/54 100 Room Air 03/09/19 14:52 102/55 03/09/19 14:30 102 32 107/54 100 Room Air 03/09/19 14:00 102 31 102/55 100 Room Air 03/09/19 13:30 102 32 107/56 100 Room Air 03/09/19 13:00 105/56 03/09/19 13:00 84 34 105/56 100 Room Air 03/09/19 12:30 84 29 111/58 100 Room Air 03/09/19 12:00 Room Air 03/09/19 12:00 99.0 100 31 103/62 100 Room Air 03/09/19 12:00 103/62 03/09/19 11:55 102 03/09/19 11:30 101 29 95/50 99 Room Air 03/09/19 11:15 81 24 114/56 99 Room Air 03/09/19 11:00 83 30 114/56 99 Room Air 03/09/19 11:00 114/56 Status: awake Condition: critical HEENT: normocephalic Neck: full ROM Lungs: chest wall tender Heart: HR/BP stable Abdomen: soft, non-tender, feeding tube Extremities: edema Decubiti: location Micro: Microbiology Date/Time Source Procedure Growth Status 03/07/19 13:40 Urine,Clean Catch Urine Culture - Final Proteus Mirabilis Complete Accucheck: 108 Critical Care - Subjective Interval Events: looks comfortable Condition: critical FI02: 21 Sputum Amount: Small I&O: Intake and Output 03/09/19 03/10/19 19:00 07:00 Intake Total 2397.65 ml 1265.49 ml Output Total 820 ml 965 ml Balance 1577.65 ml 300.49 ml Intake Oral 0 ml 0 ml Free Water 60 ml IV Total 2337.65 ml 1265.49 ml Output Urine Total 820 ml 965 ml # Bowel Movements 1 1 CXR: Left infiltrate and effusion Labs: Laboratory Tests Test 03/10/19 03:35 White Blood Count 7.3 K/UL (4.8-10.8) Red Blood Count 3.91 M/UL (4.70-6.10) L Hemoglobin 11.3 G/DL (14.2-18.0) L Hematocrit 35.5 % (42.0-52.0) L Mean Corpuscular Volume 91 FL (80-99) Mean Corpuscular Hemoglobin 28.9 PG (27.0-31.0) Mean Corpuscular Hemoglobin Concent 31.8 G/DL (32.0-36.0) L Red Cell Distribution Width 15.1 % (11.6-14.8) H Platelet Count 120 K/UL (150-450) L Mean Platelet Volume 8.0 FL (6.5-10.1) Neutrophils (%) (Auto) 59.0 % (45.0-75.0) Lymphocytes (%) (Auto) 32.8 % (20.0-45.0) Monocytes (%) (Auto) 6.6 % (1.0-10.0) Eosinophils (%) (Auto) 0.8 % (0.0-3.0) Basophils (%) (Auto) 0.8 % (0.0-2.0) Sodium Level 150 MMOL/L (136-145) #H Potassium Level 3.0 MMOL/L (3.5-5.1) L Chloride Level 120 MMOL/L (98-107) H Carbon Dioxide Level 20 MMOL/L (21-32) L Anion Gap 10 mmol/L (5-15) Blood Urea Nitrogen 8 mg/dL (7-18) Creatinine 0.6 MG/DL (0.55-1.30) Estimat Glomerular Filtration Rate > 60 mL/min (>60) Glucose Level 125 MG/DL (74-106) H Calcium Level 8.1 MG/DL (8.5-10.1) L Phosphorus Level 1.8 MG/DL (2.5-4.9) L Magnesium Level 1.4 MG/DL (1.8-2.4) L Total Bilirubin 0.5 MG/DL (0.2-1.0) Aspartate Amino Transf (AST/SGOT) 23 U/L (15-37) Alanine Aminotransferase (ALT/SGPT) 21 U/L (12-78) Alkaline Phosphatase 58 U/L (46-116) Troponin I 0.022 ng/mL (0.000-0.056) C-Reactive Protein, Quantitative 10.9 mg/dL (0.00-0.90) H Pro-B-Type Natriuretic Peptide 2469 pg/mL (0-125) H Total Protein 6.4 G/DL (6.4-8.2) Albumin 2.1 G/DL (3.4-5.0) L Globulin 4.3 g/dL Albumin/Globulin Ratio 0.5 (1.0-2.7) L Jaylin Dickson MD Mar 10, 2019 10:51
--- NOTE | 2019-03-10 11:15 | Diagnostic Imaging Report ---
Indication: Shortness of breath Technique: One view of the chest Comparison: 03/09/2019 Findings: Left lung volume loss, left pleural effusion, left lung infiltrates persist, unchanged. Right lung and pleural space remain clear. There is a right subclavian central venous catheter again demonstrated. The heart is upper limits of normal in size. Previously questioned left apical pneumothorax is not currently evident, was probably artifactual due to the inferior border of the third rib. Impression: Unchanged, over one day, findings as above.
--- NOTE | 2019-03-10 11:15 | NUR ---
NURSE NOTES: Increased Levophed to 8mcg/kg/hr, BP 78/45. Rotated BP cuff to left arm, MAP still <65. Received orders for Midodrine 5mg TID per Dr. Dickson. Read back given and verified. Patient condition remains the same since this morning.
--- NOTE | 2019-03-10 11:57 | Infectious Diseases Prog Note ---
Assessment/Plan Assessment/Plan Assessment: Severe Sepsis- likely 2ry to UTI and PNA -03/08 CXR: Mildly worsening patchy consolidation throughout the left upper and lower lungs compared to the prior exam, concerning for pneumonia. Persistent mild elevation of the left hemidiaphragm. Cannot exclude small layering left pleural effusion. -u/a wbc tnct, nti neg, leuk +3; ucx >100k P. mirabilsi (S Zosyn, Ceftriaxone ; R Cipro) -Bcx NTD -sp cx p -CXR: There is volume loss at the left lung base again noted unchanged. Left hemidiaphragm is elevated. Low grade fever Leukocytosis, SP JESUS, SP hx of UTI 11/2018, sp Rx --u/a wbc tnct, nit+, leuk +3; ucx >100k P. mirabilis (S Ceftriaxone, Ertapenem, Zosyn) HTN CVA dysphagia s/p GT Dm2 b/l AKA non verbal advanced dementia PVD NH resident Plan: -Continue empiric IV Vancomycin, AMikacin and Ertapenem #4 pending cultures -03/07 SP Zosyn x1 -/ SP Ceftriaxone #3 -12/25 SP IV Vancomycin #3, Cefepime #3 -12/23 SP Flagyl #1 -f/u cx -Monitor CBC/CMP, temperatures Thank you for this consultation. Will continue to follow along with you. Discussed with RN Subjective Allergies: Coded Allergies: No Known Allergies (Unverified , 03/07/19) Subjective Tm 100.3 no leukcoytosis levophed at 2 bcx NTD Objective Vital Signs Last 24 Hour Vital Signs Date Time Temp Pulse Resp B/P (MAP) Pulse Ox O2 Delivery O2 Flow Rate FiO2 03/10/19 11:00 93 37 78/45 97 Room Air 03/10/19 10:45 94 37 75/46 97 Room Air 03/10/19 10:30 95 37 82/48 97 Room Air 03/10/19 10:15 101 28 101/49 97 Room Air 03/10/19 10:00 103 37 91/48 97 Room Air 03/10/19 09:45 112 28 97 Room Air 21 03/10/19 09:45 106 37 110/51 97 Room Air 03/10/19 09:30 113 37 97/46 95 Room Air 03/10/19 09:15 101 37 110/57 97 Room Air 03/10/19 09:00 104 37 99/48 97 Room Air 03/10/19 08:45 93 37 100/47 97 Room Air 03/10/19 08:30 98 34 102/48 97 Room Air 03/10/19 08:00 Room Air 03/10/19 08:00 101 37 112/48 97 Room Air 03/10/19 07:45 101 37 81/50 97 Room Air 03/10/19 07:30 99.3 102 37 84/43 97 Room Air 03/10/19 07:22 94/37 03/10/19 07:15 104 37 94/37 97 Room Air 03/10/19 07:00 100.3 102 37 84/42 97 Room Air 03/10/19 06:15 104 37 86/51 97 Room Air 03/10/19 06:00 83/48 03/10/19 06:00 104 37 83/48 97 Room Air 03/10/19 05:45 106 36 84/55 96 Room Air 03/10/19 05:30 110 38 90/47 97 Room Air 03/10/19 05:15 107 36 82/52 97 Room Air 03/10/19 05:00 90/47 03/10/19 05:00 108 36 92/56 97 Room Air 03/10/19 04:30 111 34 95/61 96 Room Air 03/10/19 04:00 98.1 114 38 95/54 96 Room Air 03/10/19 04:00 120 03/10/19 04:00 Room Air 03/10/19 04:00 110/61 03/10/19 03:45 116 41 109/58 95 Room Air 03/10/19 03:30 120 42 93/55 95 Room Air 03/10/19 03:15 116 35 89/54 95 Room Air 03/10/19 03:00 78/47 03/10/19 03:00 121 38 87/51 98 Room Air 03/10/19 02:30 117 38 103/51 97 Room Air 03/10/19 02:15 121 43 100/62 93 Room Air 03/10/19 02:00 100/62 03/10/19 02:00 120 36 107/50 100 Room Air 03/10/19 01:50 110 37 99 Nasal Cannula 2.0 28 108 38 97 03/10/19 01:45 110 37 98/52 100 Room Air 03/10/19 01:30 107 40 96/49 100 Room Air 03/10/19 01:20 110 36 120/62 99 Room Air 03/10/19 01:00 108 33 108/61 100 Room Air 03/10/19 01:00 120/62 03/10/19 00:45 104 32 117/42 99 Room Air 03/10/19 00:30 99 34 105/51 100 Room Air 03/10/19 00:15 102 31 108/47 100 Room Air 03/10/19 00:00 97.9 98 34 97/48 100 Room Air 03/10/19 00:00 108/47 03/10/19 00:00 96 03/10/19 00:00 Room Air 03/09/19 23:00 96 33 108/59 100 Room Air 03/09/19 23:00 108/59 03/09/19 23:00 96 33 108/59 100 Room Air 03/09/19 22:30 95 33 107/51 100 Room Air 03/09/19 22:00 99 37 100/49 99 Room Air 03/09/19 22:00 100/49 03/09/19 22:00 99 37 100/49 99 Room Air 03/09/19 21:30 96 35 102/53 100 Room Air 03/09/19 21:00 97/48 03/09/19 21:00 96 33 97/48 100 Room Air 03/09/19 20:30 99 34 111/52 97 Room Air 03/09/19 20:13 102/50 03/09/19 20:00 98.0 99 31 102/50 100 Room Air 03/09/19 20:00 Room Air 03/09/19 20:00 99 03/09/19 20:00 102/50 03/09/19 19:30 98 29 112/59 97 Room Air 03/09/19 19:21 101 20 100 Room Air 21 03/09/19 19:00 115/49 03/09/19 19:00 101 31 115/49 97 Room Air 03/09/19 18:30 108 32 114/60 98 Room Air 03/09/19 18:15 108 35 114/60 99 Room Air 03/09/19 18:00 114/60 03/09/19 18:00 104 31 114/60 100 Room Air 03/09/19 17:45 102 36 99/61 99 Room Air 03/09/19 17:30 103 35 99/61 99 Room Air 03/09/19 17:00 103 32 113/60 100 Room Air 03/09/19 17:00 113/60 03/09/19 16:30 102 35 113/60 98 Room Air 03/09/19 16:00 98.7 103 35 113/53 100 Room Air 03/09/19 16:00 113/53 03/09/19 16:00 Room Air 03/09/19 15:37 104 03/09/19 15:30 104 35 111/44 100 Room Air 03/09/19 15:00 102/55 03/09/19 15:00 102 29 107/54 100 Room Air 03/09/19 14:52 102/55 03/09/19 14:30 102 32 107/54 100 Room Air 03/09/19 14:00 102 31 102/55 100 Room Air 03/09/19 13:30 102 32 107/56 100 Room Air 03/09/19 13:00 105/56 03/09/19 13:00 84 34 105/56 100 Room Air 03/09/19 12:30 84 29 111/58 100 Room Air 03/09/19 12:00 Room Air 03/09/19 12:00 99.0 100 31 103/62 100 Room Air 03/09/19 12:00 103/62 03/09/19 11:55 102 Height (Feet): 3 Height (Inches): 6.00 Weight (Pounds): 115 Objective General Appearance: moderate distress - Appears diaphoretic and is tachycardic Head: normocephalic, atraumatic Eyes: bilateral eye PERRL, bilateral eye EOMI ENT: dry mucus membranes Neck: supple Respiratory: no retraction, no accessory muscle use, crackles - Bilaterally Cardiovascular: tachycardia Gastrointestinal: non tender, soft, other - Feeding tube in place Musculoskeletal: other - Bilateral [id number] amputations does not follow commands, right upper extremity paralysis Neurologic: other - Patient has eyes open however does not follow commands is not verbal Psychiatric: normal inspection Skin: other - Scars formations bilateral femoral area Microbiology Date/Time Source Procedure Growth Status 03/07/19 13:40 Urine,Clean Catch Urine Culture - Final Proteus Mirabilis Complete Laboratory Tests Test 03/10/19 03:35 White Blood Count 7.3 K/UL (4.8-10.8) Red Blood Count 3.91 M/UL (4.70-6.10) L Hemoglobin 11.3 G/DL (14.2-18.0) L Hematocrit 35.5 % (42.0-52.0) L Mean Corpuscular Volume 91 FL (80-99) Mean Corpuscular Hemoglobin 28.9 PG (27.0-31.0) Mean Corpuscular Hemoglobin Concent 31.8 G/DL (32.0-36.0) L Red Cell Distribution Width 15.1 % (11.6-14.8) H Platelet Count 120 K/UL (150-450) L Mean Platelet Volume 8.0 FL (6.5-10.1) Neutrophils (%) (Auto) 59.0 % (45.0-75.0) Lymphocytes (%) (Auto) 32.8 % (20.0-45.0) Monocytes (%) (Auto) 6.6 % (1.0-10.0) Eosinophils (%) (Auto) 0.8 % (0.0-3.0) Basophils (%) (Auto) 0.8 % (0.0-2.0) Sodium Level 150 MMOL/L (136-145) #H Potassium Level 3.0 MMOL/L (3.5-5.1) L Chloride Level 120 MMOL/L (98-107) H Carbon Dioxide Level 20 MMOL/L (21-32) L Anion Gap 10 mmol/L (5-15) Blood Urea Nitrogen 8 mg/dL (7-18) Creatinine 0.6 MG/DL (0.55-1.30) Estimat Glomerular Filtration Rate > 60 mL/min (>60) Glucose Level 125 MG/DL (74-106) H Calcium Level 8.1 MG/DL (8.5-10.1) L Phosphorus Level 1.8 MG/DL (2.5-4.9) L Magnesium Level 1.4 MG/DL (1.8-2.4) L Total Bilirubin 0.5 MG/DL (0.2-1.0) Aspartate Amino Transf (AST/SGOT) 23 U/L (15-37) Alanine Aminotransferase (ALT/SGPT) 21 U/L (12-78) Alkaline Phosphatase 58 U/L (46-116) Troponin I 0.022 ng/mL (0.000-0.056) C-Reactive Protein, Quantitative 10.9 mg/dL (0.00-0.90) H Pro-B-Type Natriuretic Peptide 2469 pg/mL (0-125) H Total Protein 6.4 G/DL (6.4-8.2) Albumin 2.1 G/DL (3.4-5.0) L Globulin 4.3 g/dL Albumin/Globulin Ratio 0.5 (1.0-2.7) L Current Medications Medications (Trade) Dose Ordered Sig/Jennifer Route PRN Reason Start Time Stop Time Status Last Admin Dose Admin Acetaminophen (Tylenol) 650 mg Q4H PRN ORAL fever 03/07/19 11:30 04/06/19 07:29 03/09/19 08:10 Albuterol/ Ipratropium (Albuterol/ Ipratropium) 3 ml Q4H PRN HHN Shortness of Breath 03/07/19 09:00 03/12/19 08:59 03/10/19 01:49 Amikacin Protocol (Amikacin pharmacy to dose) 1 ea DAILY PRN MISC AMIKACIN 03/07/19 10:30 04/06/19 10:29 Amikacin Sulfate 350 mg/Sodium Chloride 111.4 ml @ 111.4 mls/ hr Q24H IV 03/09/19 13:00 03/16/19 12:59 03/09/19 14:48 Aspirin (ASA) 81 mg DAILY ORAL 03/09/19 09:00 04/08/19 08:59 03/10/19 08:55 Chlorhexidine Gluconate (Rani-Hex 2%) 1 applic DAILY@2000 TOPIC 03/07/19 20:00 04/06/19 19:59 03/09/19 20:12 Dextrose 1,000 ml @ 100 mls/hr Q10H IV 03/08/19 12:00 04/07/19 11:59 03/10/19 03:54 Dextrose (Dextrose 50%) 25 ml Q30M PRN IV Hypoglycemia 03/07/19 15:15 04/06/19 15:14 Dextrose (Dextrose 50%) 50 ml Q30M PRN IV Hypoglycemia 03/07/19 15:15 04/06/19 15:14 Ertapenem 1 gm/ Sodium Chloride 55 ml @ 110 mls/hr Q24H IV 03/08/19 22:00 03/13/19 21:59 03/09/19 21:49 Heparin Sodium (Porcine) (Heparin 5000 units/ml) 5,000 units EVERY 12 HOURS SUBQ 03/07/19 09:00 04/06/19 08:59 03/10/19 08:56 Insulin Aspart (NovoLOG) Q6HR SUBQ 03/07/19 15:15 04/06/19 15:14 03/09/19 23:47 Magnesium Sulfate 100 ml @ 100 mls/hr Q1H IVPB 03/10/19 09:30 03/10/19 13:29 03/10/19 11:43 Midodrine (Pro-Amatine) 5 mg THREE TIMES A DAY ORAL 03/10/19 13:00 04/09/19 12:59 Morphine Sulfate (Morphine Sulfate) 2 mg Q4H PRN IVP Severe Pain (Pain Scale 7-10) 03/07/19 09:00 03/14/19 08:59 Norepinephrine Bitartrate 4 mg/ Dextrose 254 ml @ 0 mls/hr Q24H IV 03/09/19 19:30 04/08/19 19:29 03/10/19 07:22 Ondansetron HCl (Zofran) 4 mg Q6H PRN IVP Nausea & Vomiting 03/07/19 09:00 04/06/19 08:59 Pantoprazole (Protonix) 40 mg Q12HR IVP 03/07/19 21:00 04/06/19 08:59 03/10/19 08:55 Polyethylene Glycol (Miralax) 17 gm DAILYPRN PRN ORAL Constipation 03/08/19 07:30 04/06/19 07:29 Potassium Phosphate 30 mm/ Sodium Chloride 285 ml @ 47.5 mls/hr ONCE ONCE IV 03/10/19 14:00 03/10/19 19:59 Potassium Chloride 100 ml @ 50 mls/hr ONCE IVPB 03/10/19 10:00 03/10/19 12:00 03/10/19 10:00 Potassium Chloride 100 ml @ 50 mls/hr ONCE IVPB 03/10/19 12:00 03/10/19 14:00 Quetiapine Fumarate (SEROquel) 12.5 mg BID ORAL 03/07/19 09:00 04/06/19 08:59 03/10/19 08:55 Vancomycin HCl (Vanco rx to dose) 1 ea DAILY PRN MISC VANCOMYCIN 03/07/19 10:30 04/06/19 10:29 Vancomycin HCl 750 mg/Dextrose 275 ml @ 183.333 mls/hr Q24H IVPB 03/09/19 14:00 03/14/19 13:59 03/09/19 16:39 Deepti Connolly M.D. Mar 10, 2019 11:57
--- NOTE | 2019-03-10 12:04 | Diagnostic Imaging Report ---
Indication: Acute kidney injury Technique: Grayscale and duplex images of the kidneys, retroperitoneum, and bladder were obtained. Comparison: none Findings: Right kidney measures 11.6 cm in length. Left kidney measures 9 cm in length. Both kidneys demonstrate normal echogenicity. No hydronephrosis. Numerous echogenic shadowing foci are seen in the left renal sinus. Less numerous echogenic shadowing foci are seen in the right renal sinus. There is questionably a trace right pleural effusion.. Normal inferior vena cava. Bladder is empty, contains a Pelayo catheter. Impression: Bilateral echogenic renal sinus foci, left. The right, likely represent nonobstructive intrarenal calculi Negative for hydronephrosis Empty bladder, containing a Pelayo catheter.
[2019-03-10] MEDS: Amikacin 350 MG in NS 110 ML IV SCH (12:57)
--- NOTE | 2019-03-10 13:35 | NUR ---
NURSE NOTES: Patient received first dose of midodrine. BP 117/60, decreased Levophed to 6mcg/kg/hr. Turned and repositioned. Kept dry and clean.
[2019-03-10] MEDS ORDERED: Potassium Phosphate 30 MM in NS 275 ML IV ONE (14:00)
--- NOTE | 2019-03-10 14:09 | NUR ---
CASE MANAGEMENT:REVIEW 03/10/19 SI: SEPSIS. UTI. PNA 99.2 96 37 90/60 97% ON RA NA+150 K-3.0 PHOS-1.8 MAG-1.4 IS: LEVOPHED GTT IV K-PHOS X1 IV VANCOMYCIN Q24 IV AMIKACIN Q24 IV ERTAPENEM Q24 IVF@100/HR MIDODRINE PO TID : ICU STATUS DCP; FROM [id number]
--- NOTE | 2019-03-10 14:18 | NUR ---
NURSE NOTES:WOUND CARE NOTES:Pt presented on admission with bilat AKA. Wound at head of L AKA stump . Base of wound is leonila -moist with small amt of Biofilm along borders of wound . Smal amt serous exudate noted. No odor noted. Hyperpigmentation from previous wound noted to sacral area. No other skin concerns noted . Recommendations: Apply Moisture Barrier paste to sacrum. Cover with Optifoam drsg. Change every 3 days and prn. Float bilat AKA stumps with pillow. Reposition at least every 2hours or as tolerated. Reposition at least every 2hours or as tolerated.
[2019-03-10] MEDS: Vancomycin 750mg/D5W 275ml IVPB SCH ×2 (14:43)
--- NOTE | 2019-03-10 15:30 | NUR ---
NURSE NOTES: Levophed running at 8mcg/kg/hr to keep SBP >65. Patient is asleep but wakes up upon touch. FC draining well. Tolerating GTF well. Afebrile.
--- NOTE | 2019-03-10 15:58 | NUR ---
*-* INSURANCE *-* ALL CLINICALS AND REVIEWS HAVE BEEN FAXED TO: [employer] PLEASE FAX THE REVIEW / CLINICALS P- [phone] F- [phone]....REVIEW/CLINICALS
--- NOTE | 2019-03-10 17:35 | NUR ---
NURSE NOTES: Dr. Suarez at bedside making rounds. swabbed right knee wound. Specimen sent to lab. Turned and repositioned.
--- NOTE | 2019-03-10 18:01 | Consultation ---
History of Present Illness General Date patient seen: Mar 10, 2019 Time patient seen: 17:53 Chief Complaint: Dyspnea/Respdistress Referring physician: Yessi Reason for Consultation: LLE and sacral ulcers Present Illness HPI Asked to evaluate this 68 yom who was admitted to [facility] with decreased LOC. He comes from a SNF and presented with a sacral ulcer as well as a left aka stump wound. It is unclear how long he has had the wounds. He is non verbal and is not able to give history. Allergies: Coded Allergies: No Known Allergies (Unverified , 03/07/19) Medication History Scheduled Allopurinol* (Allopurinol*), 100 MG GT DAILY Amino Acids/Protein Hydrolys (Pro-Stat Liquid), 30 ML GT TWICE A DAY, (Reported) Clopidogrel Bisulfate* (Plavix*), 75 MG ORAL DAILY, (Reported) Quetiapine Fumarate* (Seroquel*), 12.5 MG ORAL BID Zinc Sulfate (Zinc Sulfate*), 220 MG GT DAILY, (Reported) Scheduled PRN Acetaminophen* (Acetaminophen 325MG Tablet*), 500 MG GT Q4H PRN for Moderate Pain (Pain Scale 4-6), (Reported) Miscellaneous Medications Vit C/Ascorb Sod/Multivit-Min (Emergen-C 500 mg Chewable Tab), 500 MG GT, ( Reported) Patient History Limited by: medical condition History Provided By: Medical Record Healthcare decision maker Resuscitation status Full Code Advanced Directive on File Past Medical/Surgical History Past Medical/Surgical History: (1) UTI (urinary tract infection) (2) Renal failure (ARF), acute on chronic (3) Iron deficiency anemia (4) PVD (peripheral vascular disease) (5) CVA (cerebral vascular accident) Review of Systems Skin: Reports: see HPI Physical Exam General Appearance: thin Lines, tubes and drains: peripheral, gtube, muro cath Skin Exam: other - Sacral ulcer is stage 2 with granular base. Periskin is in good condition. Left aka ulcer is a pressure injury with bone exposed. THis is due to lack of muscle padding. Last 24 Hour Vital Signs Date Time Temp Pulse Resp B/P (MAP) Pulse Ox O2 Delivery O2 Flow Rate FiO2 03/10/19 17:00 88 37 105/35 97 Room Air 03/10/19 16:00 84 03/10/19 16:00 Room Air 03/10/19 16:00 99.1 86 37 97/37 98 Room Air 03/10/19 15:00 97 37 92/35 97 Room Air 03/10/19 15:00 95/47 03/10/19 14:00 84/49 03/10/19 13:00 97 37 80/41 97 Room Air 03/10/19 13:00 109/53 03/10/19 12:45 97 37 109/53 97 Room Air 03/10/19 12:30 97 37 106/45 97 Room Air 03/10/19 12:15 97 37 90/48 97 Room Air 03/10/19 12:00 Room Air 03/10/19 12:00 99.2 96 37 90/60 97 Room Air 03/10/19 12:00 109/39 03/10/19 12:00 99 03/10/19 11:45 98 37 109/39 97 Room Air 03/10/19 11:30 101 37 106/56 97 Room Air 03/10/19 11:15 100 35 91/52 97 Room Air 03/10/19 11:00 93 37 78/45 97 Room Air 03/10/19 11:00 78/45 03/10/19 10:45 94 37 75/46 97 Room Air 03/10/19 10:30 95 37 82/48 97 Room Air 03/10/19 10:15 101 28 101/49 97 Room Air 03/10/19 10:00 103 37 91/48 97 Room Air 03/10/19 10:00 91/48 03/10/19 09:45 112 28 97 Room Air 03/10/19 09:45 106 37 110/51 97 Room Air 03/10/19 09:30 113 37 97/46 95 Room Air 03/10/19 09:15 101 37 110/57 97 Room Air 03/10/19 09:00 110/57 03/10/19 09:00 104 37 99/48 97 Room Air 03/10/19 08:45 93 37 100/47 97 Room Air 03/10/19 08:30 98 34 102/48 97 Room Air 03/10/19 08:00 Room Air 03/10/19 08:00 112/48 03/10/19 08:00 101 37 112/48 97 Room Air 03/10/19 08:00 101 03/10/19 07:45 101 37 81/50 97 Room Air 03/10/19 07:30 99.3 102 37 84/43 97 Room Air 03/10/19 07:22 94/37 03/10/19 07:15 104 37 94/37 97 Room Air 03/10/19 07:00 100.3 102 37 84/42 97 Room Air 03/10/19 06:15 104 37 86/51 97 Room Air 03/10/19 06:00 83/48 03/10/19 06:00 104 37 83/48 97 Room Air 03/10/19 05:45 106 36 84/55 96 Room Air 03/10/19 05:30 110 38 90/47 97 Room Air 03/10/19 05:15 107 36 82/52 97 Room Air 03/10/19 05:00 90/47 03/10/19 05:00 108 36 92/56 97 Room Air 03/10/19 04:30 111 34 95/61 96 Room Air 03/10/19 04:00 98.1 114 38 95/54 96 Room Air 03/10/19 04:00 120 03/10/19 04:00 Room Air 03/10/19 04:00 110/61 03/10/19 03:45 116 41 109/58 95 Room Air 03/10/19 03:30 120 42 93/55 95 Room Air 03/10/19 03:15 116 35 89/54 95 Room Air 03/10/19 03:00 78/47 03/10/19 03:00 121 38 87/51 98 Room Air 03/10/19 02:30 117 38 103/51 97 Room Air 03/10/19 02:15 121 43 100/62 93 Room Air 03/10/19 02:00 100/62 03/10/19 02:00 120 36 107/50 100 Room Air 03/10/19 01:50 110 37 99 Nasal Cannula 2.0 28 108 38 97 03/10/19 01:45 110 37 98/52 100 Room Air 03/10/19 01:30 107 40 96/49 100 Room Air 03/10/19 01:20 110 36 120/62 99 Room Air 03/10/19 01:00 108 33 108/61 100 Room Air 03/10/19 01:00 120/62 03/10/19 00:45 104 32 117/42 99 Room Air 03/10/19 00:30 99 34 105/51 100 Room Air 03/10/19 00:15 102 31 108/47 100 Room Air 03/10/19 00:00 97.9 98 34 97/48 100 Room Air 03/10/19 00:00 108/47 03/10/19 00:00 96 03/10/19 00:00 Room Air 03/09/19 23:00 96 33 108/59 100 Room Air 03/09/19 23:00 108/59 03/09/19 23:00 96 33 108/59 100 Room Air 03/09/19 22:30 95 33 107/51 100 Room Air 03/09/19 22:00 99 37 100/49 99 Room Air 03/09/19 22:00 100/49 03/09/19 22:00 99 37 100/49 99 Room Air 03/09/19 21:30 96 35 102/53 100 Room Air 03/09/19 21:00 97/48 03/09/19 21:00 96 33 97/48 100 Room Air 03/09/19 20:30 99 34 111/52 97 Room Air 03/09/19 20:13 102/50 03/09/19 20:00 98.0 99 31 102/50 100 Room Air 03/09/19 20:00 Room Air 03/09/19 20:00 99 03/09/19 20:00 102/50 03/09/19 19:30 98 29 112/59 97 Room Air 03/09/19 19:21 101 20 100 Room Air 21 03/09/19 19:00 115/49 03/09/19 19:00 101 31 115/49 97 Room Air 03/09/19 18:30 108 32 114/60 98 Room Air 03/09/19 18:15 108 35 114/60 99 Room Air 03/09/19 18:00 114/60 03/09/19 18:00 104 31 114/60 100 Room Air Intake and Output 03/09/19 03/10/19 18:59 06:59 Intake Total 2375.15 ml 1387.99 ml Output Total 940 ml 885 ml Balance 1435.15 ml 502.99 ml Intake Oral 0 ml 0 ml Free Water 60 ml IV Total 2315.15 ml 1387.99 ml Output Urine Total 940 ml 885 ml # Bowel Movements 2 Laboratory Tests Test 03/10/19 03:35 03/10/19 12:00 03/10/19 14:42 White Blood Count 7.3 K/UL (4.8-10.8) Red Blood Count 3.91 M/UL (4.70-6.10) L Hemoglobin 11.3 G/DL (14.2-18.0) L Hematocrit 35.5 % (42.0-52.0) L Mean Corpuscular Volume 91 FL (80-99) Mean Corpuscular Hemoglobin 28.9 PG (27.0-31.0) Mean Corpuscular Hemoglobin Concent 31.8 G/DL (32.0-36.0) L Red Cell Distribution Width 15.1 % (11.6-14.8) H Platelet Count 120 K/UL (150-450) L Mean Platelet Volume 8.0 FL (6.5-10.1) Neutrophils (%) (Auto) 59.0 % (45.0-75.0) Lymphocytes (%) (Auto) 32.8 % (20.0-45.0) Monocytes (%) (Auto) 6.6 % (1.0-10.0) Eosinophils (%) (Auto) 0.8 % (0.0-3.0) Basophils (%) (Auto) 0.8 % (0.0-2.0) Sodium Level 150 MMOL/L (136-145) #H Potassium Level 3.0 MMOL/L (3.5-5.1) L Chloride Level 120 MMOL/L (98-107) H Carbon Dioxide Level 20 MMOL/L (21-32) L Anion Gap 10 mmol/L (5-15) Blood Urea Nitrogen 8 mg/dL (7-18) Creatinine 0.6 MG/DL (0.55-1.30) Estimat Glomerular Filtration Rate > 60 mL/min (>60) Glucose Level 125 MG/DL (74-106) H Calcium Level 8.1 MG/DL (8.5-10.1) L Phosphorus Level 1.8 MG/DL (2.5-4.9) L Magnesium Level 1.4 MG/DL (1.8-2.4) L Total Bilirubin 0.5 MG/DL (0.2-1.0) Aspartate Amino Transf (AST/SGOT) 23 U/L (15-37) Alanine Aminotransferase (ALT/SGPT) 21 U/L (12-78) Alkaline Phosphatase 58 U/L (46-116) Troponin I 0.022 ng/mL (0.000-0.056) C-Reactive Protein, Quantitative 10.9 mg/dL (0.00-0.90) H Pro-B-Type Natriuretic Peptide 2469 pg/mL (0-125) H Total Protein 6.4 G/DL (6.4-8.2) Albumin 2.1 G/DL (3.4-5.0) L Globulin 4.3 g/dL Albumin/Globulin Ratio 0.5 (1.0-2.7) L Amikacin Level Trough < 2.5 ug/mL (4.0-8.0) L Amikacin Level Peak 22.0 ug/mL (25.0-35.0) L Height (Feet): 3 Height (Inches): 6.00 Weight (Pounds): 115 Medications Current Medications Medications (Trade) Dose Ordered Sig/Jennifer Route PRN Reason Start Time Stop Time Status Last Admin Dose Admin Acetaminophen (Tylenol) 650 mg Q4H PRN ORAL fever 03/07/19 11:30 04/06/19 07:29 03/09/19 08:10 Albuterol/ Ipratropium (Albuterol/ Ipratropium) 3 ml Q4H PRN HHN Shortness of Breath 03/07/19 09:00 03/12/19 08:59 03/10/19 01:49 Amikacin Protocol (Amikacin pharmacy to dose) 1 ea DAILY PRN MISC AMIKACIN 03/07/19 10:30 04/06/19 10:29 Amikacin Sulfate 400 mg/Sodium Chloride 111.6 ml @ 111.6 mls/ hr Q24H IV 03/11/19 13:00 03/18/19 12:59 Aspirin (ASA) 81 mg DAILY ORAL 03/09/19 09:00 04/08/19 08:59 03/10/19 08:55 Chlorhexidine Gluconate (Rani-Hex 2%) 1 applic DAILY@2000 TOPIC 03/07/19 20:00 04/06/19 19:59 03/09/19 20:12 Dextrose 1,000 ml @ 100 mls/hr Q10H IV 03/08/19 12:00 04/07/19 11:59 03/10/19 14:00 Dextrose (Dextrose 50%) 25 ml Q30M PRN IV Hypoglycemia 03/07/19 15:15 04/06/19 15:14 Dextrose (Dextrose 50%) 50 ml Q30M PRN IV Hypoglycemia 03/07/19 15:15 04/06/19 15:14 Ertapenem 1 gm/ Sodium Chloride 55 ml @ 110 mls/hr Q24H IV 03/08/19 22:00 03/13/19 21:59 03/09/19 21:49 Heparin Sodium (Porcine) (Heparin 5000 units/ml) 5,000 units EVERY 12 HOURS SUBQ 03/07/19 09:00 04/06/19 08:59 03/10/19 08:56 Insulin Aspart (NovoLOG) Q6HR SUBQ 03/07/19 15:15 04/06/19 15:14 03/10/19 12:19 Midodrine (Pro-Amatine) 5 mg THREE TIMES A DAY ORAL 03/10/19 13:00 04/09/19 12:59 03/10/19 12:57 Morphine Sulfate (Morphine Sulfate) 2 mg Q4H PRN IVP Severe Pain (Pain Scale 7-10) 03/07/19 09:00 03/14/19 08:59 Norepinephrine Bitartrate 4 mg/ Dextrose 254 ml @ 0 mls/hr Q24H IV 03/09/19 19:30 04/08/19 19:29 03/10/19 07:22 Ondansetron HCl (Zofran) 4 mg Q6H PRN IVP Nausea & Vomiting 03/07/19 09:00 04/06/19 08:59 Pantoprazole (Protonix) 40 mg Q12HR IVP 03/07/19 21:00 04/06/19 08:59 03/10/19 08:55 Polyethylene Glycol (Miralax) 17 gm DAILYPRN PRN ORAL Constipation 03/08/19 07:30 04/06/19 07:29 Potassium Phosphate 30 mm/ Sodium Chloride 285 ml @ 47.5 mls/hr ONCE ONCE IV 03/10/19 14:00 03/10/19 19:59 03/10/19 14:43 Quetiapine Fumarate (SEROquel) 12.5 mg BID ORAL 03/07/19 09:00 04/06/19 08:59 03/10/19 08:55 Vancomycin HCl (Vanco rx to dose) 1 ea DAILY PRN MISC VANCOMYCIN 03/07/19 10:30 04/06/19 10:29 Vancomycin HCl 750 mg/Dextrose 275 ml @ 183.333 mls/hr Q24H IVPB 03/09/19 14:00 03/14/19 13:59 03/10/19 14:43 Assessment/Plan Status: stable Assessment/Plan: Patient with stage 2 sacral pressure injury and stage 4 left aka pressure injury. He may have osteomyelitis in the distal femur and cultures done by me. He is currently on multiple IV abx for uti and pneumonia but if left aka wound culture is + would consider treating for 6wks. No need for surgical intervention at this time but ideally if left aka ulcer to have a better chance to heal, he may need his aka to be revised to reduce the tension on the distal skin. Sacral ulcer can be treated with biotane protective dressing and offload the patient. Ashish Suarez MD Mar 10, 2019 18:01
--- NOTE | 2019-03-10 19:12 | Internal Med Progress Note ---
Subjective Date of Service: Mar 10, 2019 Physician Name Darrick Stout Attending Physician Yannick Marshall MD Current Medications Medications (Trade) Dose Ordered Sig/Jennifer Route PRN Reason Start Time Stop Time Status Last Admin Dose Admin Acetaminophen (Tylenol) 650 mg Q4H PRN ORAL fever 03/07/19 11:30 04/06/19 07:29 03/09/19 08:10 Albuterol/ Ipratropium (Albuterol/ Ipratropium) 3 ml Q4H PRN HHN Shortness of Breath 03/07/19 09:00 03/12/19 08:59 03/10/19 01:49 Amikacin Protocol (Amikacin pharmacy to dose) 1 ea DAILY PRN MISC AMIKACIN 03/07/19 10:30 04/06/19 10:29 Amikacin Sulfate 400 mg/Sodium Chloride 111.6 ml @ 111.6 mls/ hr Q24H IV 03/11/19 13:00 03/18/19 12:59 Aspirin (ASA) 81 mg DAILY ORAL 03/09/19 09:00 04/08/19 08:59 03/10/19 08:55 Chlorhexidine Gluconate (Rani-Hex 2%) 1 applic DAILY@2000 TOPIC 03/07/19 20:00 04/06/19 19:59 03/09/19 20:12 Dextrose 1,000 ml @ 100 mls/hr Q10H IV 03/08/19 12:00 04/07/19 11:59 03/10/19 14:00 Dextrose (Dextrose 50%) 25 ml Q30M PRN IV Hypoglycemia 03/07/19 15:15 04/06/19 15:14 Dextrose (Dextrose 50%) 50 ml Q30M PRN IV Hypoglycemia 03/07/19 15:15 04/06/19 15:14 Ertapenem 1 gm/ Sodium Chloride 55 ml @ 110 mls/hr Q24H IV 03/08/19 22:00 03/13/19 21:59 03/09/19 21:49 Heparin Sodium (Porcine) (Heparin 5000 units/ml) 5,000 units EVERY 12 HOURS SUBQ 03/07/19 09:00 04/06/19 08:59 03/10/19 08:56 Insulin Aspart (NovoLOG) Q6HR SUBQ 03/07/19 15:15 04/06/19 15:14 03/10/19 18:01 Midodrine (Pro-Amatine) 5 mg THREE TIMES A DAY ORAL 03/10/19 13:00 04/09/19 12:59 03/10/19 17:59 Morphine Sulfate (Morphine Sulfate) 2 mg Q4H PRN IVP Severe Pain (Pain Scale 7-10) 03/07/19 09:00 03/14/19 08:59 Norepinephrine Bitartrate 4 mg/ Dextrose 254 ml @ 0 mls/hr Q24H IV 03/09/19 19:30 04/08/19 19:29 03/10/19 18:51 Ondansetron HCl (Zofran) 4 mg Q6H PRN IVP Nausea & Vomiting 03/07/19 09:00 04/06/19 08:59 Pantoprazole (Protonix) 40 mg Q12HR IVP 03/07/19 21:00 04/06/19 08:59 03/10/19 08:55 Polyethylene Glycol (Miralax) 17 gm DAILYPRN PRN ORAL Constipation 03/08/19 07:30 04/06/19 07:29 Potassium Phosphate 30 mm/ Sodium Chloride 285 ml @ 47.5 mls/hr ONCE ONCE IV 03/10/19 14:00 03/10/19 19:59 03/10/19 14:43 Quetiapine Fumarate (SEROquel) 12.5 mg BID ORAL 03/07/19 09:00 04/06/19 08:59 03/10/19 17:59 Vancomycin HCl (Vanco rx to dose) 1 ea DAILY PRN MISC VANCOMYCIN 03/07/19 10:30 04/06/19 10:29 Vancomycin HCl 750 mg/Dextrose 275 ml @ 183.333 mls/hr Q24H IVPB 03/09/19 14:00 03/14/19 13:59 03/10/19 14:43 Allergies: Coded Allergies: No Known Allergies (Unverified , 03/07/19) ROS Limited/Unobtainable: No Constitutional: Reports: no symptoms HEENT: Reports: no symptoms Cardiovascular: Reports: no symptoms Respiratory: Reports: no symptoms Gastrointestinal/Abdominal: Reports: no symptoms Genitourinary: Reports: no symptoms Neurologic/Psychiatric: Reports: no symptoms Subjective 68 YO M admitted with hypotension. Now sepsis. ICU. Cover for Int Med-Dr Marshall. Continues on levophed Objective Last Vital Signs Date Time Temp Pulse Resp B/P (MAP) Pulse Ox O2 Delivery O2 Flow Rate FiO2 03/10/19 18:51 93/57 03/10/19 18:30 88 27 100 Room Air 03/10/19 16:00 99.1 03/10/19 09:45 21 03/10/19 01:50 2.0 Laboratory Tests Test 03/10/19 03:35 03/10/19 12:00 03/10/19 14:42 White Blood Count 7.3 K/UL (4.8-10.8) Red Blood Count 3.91 M/UL (4.70-6.10) L Hemoglobin 11.3 G/DL (14.2-18.0) L Hematocrit 35.5 % (42.0-52.0) L Mean Corpuscular Volume 91 FL (80-99) Mean Corpuscular Hemoglobin 28.9 PG (27.0-31.0) Mean Corpuscular Hemoglobin Concent 31.8 G/DL (32.0-36.0) L Red Cell Distribution Width 15.1 % (11.6-14.8) H Platelet Count 120 K/UL (150-450) L Mean Platelet Volume 8.0 FL (6.5-10.1) Neutrophils (%) (Auto) 59.0 % (45.0-75.0) Lymphocytes (%) (Auto) 32.8 % (20.0-45.0) Monocytes (%) (Auto) 6.6 % (1.0-10.0) Eosinophils (%) (Auto) 0.8 % (0.0-3.0) Basophils (%) (Auto) 0.8 % (0.0-2.0) Sodium Level 150 MMOL/L (136-145) #H Potassium Level 3.0 MMOL/L (3.5-5.1) L Chloride Level 120 MMOL/L (98-107) H Carbon Dioxide Level 20 MMOL/L (21-32) L Anion Gap 10 mmol/L (5-15) Blood Urea Nitrogen 8 mg/dL (7-18) Creatinine 0.6 MG/DL (0.55-1.30) Estimat Glomerular Filtration Rate > 60 mL/min (>60) Glucose Level 125 MG/DL (74-106) H Calcium Level 8.1 MG/DL (8.5-10.1) L Phosphorus Level 1.8 MG/DL (2.5-4.9) L Magnesium Level 1.4 MG/DL (1.8-2.4) L Total Bilirubin 0.5 MG/DL (0.2-1.0) Aspartate Amino Transf (AST/SGOT) 23 U/L (15-37) Alanine Aminotransferase (ALT/SGPT) 21 U/L (12-78) Alkaline Phosphatase 58 U/L (46-116) Troponin I 0.022 ng/mL (0.000-0.056) C-Reactive Protein, Quantitative 10.9 mg/dL (0.00-0.90) H Pro-B-Type Natriuretic Peptide 2469 pg/mL (0-125) H Total Protein 6.4 G/DL (6.4-8.2) Albumin 2.1 G/DL (3.4-5.0) L Globulin 4.3 g/dL Albumin/Globulin Ratio 0.5 (1.0-2.7) L Amikacin Level Trough < 2.5 ug/mL (4.0-8.0) L Amikacin Level Peak 22.0 ug/mL (25.0-35.0) L Intake and Output 03/09/19 03/10/19 18:59 06:59 Intake Total 2375.15 ml 1387.99 ml Output Total 940 ml 885 ml Balance 1435.15 ml 502.99 ml Intake Oral 0 ml 0 ml Free Water 60 ml IV Total 2315.15 ml 1387.99 ml Output Urine Total 940 ml 885 ml # Bowel Movements 2 Objective PHYSICAL EXAMINATION: GENERAL: The patient is awake, opens his eyes, cachectic, malnutrition. HEAD AND NECK: Pupils are equal and reactive to light. Anicteric. Neck was supple. No JVD. LUNGS: Clear. No wheezing or rales. Decreased air in bases. Coarse breath sounds. HEART: S1, S2. Tachycardic. No murmur or gallops. ABDOMEN: Soft, nondistended, and nontender. Positive bowel sounds. G-tube is in place. RECTAL/GENITOURINARY: The patient has a Pelayo catheter. EXTREMITIES: Bilateral AKA was noted with stump intact. NEUROLOGIC: Limited secondary to the patient's status. The patient is moving the left upper extremity. Right upper extremity is flaccid. HEEL FORMER II through XII grossly intact, but it is very hard to follow. Neurologic examination is very limited secondary to the patient's status. Assessment/Plan Assessment/Plan ASSESSMENT: 1. Sepsis, septic shock most likely secondary to the urinary tract infection. 2. Acute kidney injury on chronic renal insufficiency due to severe dehydration. 3. Urinary tract infection. 4. Hypertension, presently hypotensive. 5. History of CVA. 6. Dysphagia, status post PEG. 7. Diabetes type 2. 8. Status post bilateral AKA. 9. Advanced dementia. 10. History of stroke with right-sided hemiparesis. 11. Hypernatremia/hypokalemia PLAN: 1. Admit the patient to the ICU. 2. Urine culture=Proteus. Continue amikacin, ertapenem and vanco per ID= Dr Connolly Code status at this time is Full Code. Resume long-term medication, G-tube feeding. Darrick Stout MD Mar 10, 2019 19:12
--- NOTE | 2019-03-10 19:25 | NUR ---
HAND-OFF: Report given to SARAH Cottrell.
--- NOTE | 2019-03-10 19:30 | NUR ---
NURSE NOTES: Received pt awake , followed simple commands with Rt side weaknesses, Pt congested most of the time, suctioned tn secretions lg in amt. 02 sat >92%. Pt on 02 at 2L/nc SR on the monitor with PAcs. Bp labile, On Levophed drip at 8mcg/min at this time with Maintainance IVF at 100 ml/hr infusing to RT Subclavian central line. Site with drsg dry and intact. Diuresing well via muro cath. Pls see I and O. Pt has wound on his left stump and stage 2 sacral area . Covered with optifoam. On p200 mattress. Will continue to monitor.
[2019-03-10] MEDS: Dyna-Hex 2% Top Sol 2oz TOPIC SCH (20:09)
--- NOTE | 2019-03-10 22:00 | NUR ---
NURSE NOTES: Turned to sides and suction tn beige secretions moderate in amt.
[2019-03-10] MEDS: Ertapenem 1 GM in NS 55 ML IV SCH (22:05)
[2019-03-11] VITALS (71 sets, daily range): BP systolic 79–123; BP diastolic 43–61
--- NOTE | 2019-03-11 | NUR ---
NURSE NOTES: Pt had soft brown stool moderate in amt. Cleaned up up pt.
[2019-03-11] MEDS: NovoLOG Insulin Flexpen SUBQ SCH ×5 (00:46→23:55)
--- NOTE | 2019-03-11 02:00 | NUR ---
NURSE NOTES: BP 81/47, increased Levophed drip t0 9mcg/min.
--- NOTE | 2019-03-11 02:42 | NUR ---
NURSE NOTES: Bp 103/49 increased drip to 10mg/min.
--- NOTE | 2019-03-11 04:00 | NUR ---
NURSE NOTES: Pt had lg soft stools, cleaned up pt.
--- NOTE | 2019-03-11 05:30 | NUR ---
NURSE NOTES: Complete bath with bed changed done.
[2019-03-11 05:48] LABS: BASOPHILS % (AUTO) 0.8 % (0.0-2.0); EOSINOPHILS % (AUTO) 0.8 % (0.0-3.0); HEMATOCRIT 31.1 % (42.0-52.0); HEMOGLOBIN 10.5 G/DL (14.2-18.0); LYMPHOCYTES % (AUTO) 35.6 % (20.0-45.0); MEAN CORPUSCULAR VOLUME 90 FL (80-99); MONOCYTES % (AUTO) 6.6 % (1.0-10.0); NEUTROPHILS % (AUTO) 56.2 % (45.0-75.0); PLATELET COUNT 123 K/UL (150-450); RED BLOOD COUNT 3.45 M/UL (4.70-6.10); RED CELL DISTRIBUTION WIDTH 14.8 % (11.6-14.8); WHITE BLOOD COUNT 10.1 K/UL (4.8-10.8)
[2019-03-11 06:14] LABS: ALANINE AMINOTRANSFERASE 20 U/L (12-78); ALBUMIN 1.8 G/DL (3.4-5.0); ALBUMIN/GLOBULIN RATIO 0.4 (1.0-2.7); ALKALINE PHOSPHATASE 61 U/L (46-116); ANION GAP 5 mmol/L (5-15); ASPARTATE AMINO TRANSFERASE 35 U/L (15-37); BILIRUBIN,TOTAL 0.6 MG/DL (0.2-1.0); BLOOD UREA NITROGEN 6 mg/dL (7-18); CALCIUM 7.4 MG/DL (8.5-10.1); CARBON DIOXIDE 23 MMOL/L (21-32); CHLORIDE 113 MMOL/L (98-107); CREATININE 0.5 MG/DL (0.55-1.30); PHOSPHORUS 2.5 MG/DL (2.5-4.9); POTASSIUM 4.4 MMOL/L (3.5-5.1); SODIUM 141 MMOL/L (136-145)
--- NOTE | 2019-03-11 07:24 | NUR ---
HAND-OFF: Report given to Gil SMITH.
--- NOTE | 2019-03-11 07:30 | NUR ---
NURSE NOTES: Received pt from SARAH Cottrell. Patient asleep, easily arousable to voice, able to follow simple commands. No acute distress noted. SR noted on healthcare analyst. VSS, afebrile. Patient on 2L O2 via NC, O2 sat 99%. Breathing even and unlabored. SR noted on healthcare analyst, afebrile. G-tube intact, running glucerna 1.2 at 50ml/hr. HOB kept elevated. Pelayo cath intact, draining yellow urine by gravity. right subclavian TLC intact, dressing i/c/d, running D5W at 100ml/hr, and levophed at 10mcg/kg/hr. Bilateral AKA noted, dressing to left stump intact, clean and dry. Patient on P200. Bed in lowest position, locked, side rails upx3. Bed alarm on. Call light within reach. Will continue to monitor. Addendum: 03/11/19 at 1024 by KIKE LOPEZ RN correction: Levophed running at 10mcg/min
[2019-03-11] MEDS: Pantoprazole Inj IVP SCH ×2 (08:44→21:18)
[2019-03-11] MEDS: Aspirin Baby 81mg ORAL SCH (08:44)
[2019-03-11] MEDS: Heparin 5000 units/ml inj SUBQ SCH ×2 (08:45→21:19)
--- NOTE | 2019-03-11 09:42 | NUR ---
CASE MANAGEMENT:REVIEW 03/11/19 SI: SEPSIS. UTI. PNA 98.6 90 28 99/53 98% ON 2L/NC H/H-10.5/31.1 [id number] IS: LEVOPHED GTT IV K-PHOS X1 IV VANCOMYCIN Q24 IV AMIKACIN Q24 IV ERTAPENEM Q24 IVF@100/HR MIDODRINE PO TID : ICU STATUS [facility]; [facility]
--- NOTE | 2019-03-11 10:00 | NUR ---
NURSE NOTES: Patient seen by Dr. Dickson. updated MD on pt's condition. MD to see the patient.
--- NOTE | 2019-03-11 10:14 | Pulmonolgy Critical Care Note ---
Critical Care - Asmt/Plan Problems: (1) Nosocomial pneumonia (2) Severe sepsis (3) Renal failure (ARF), acute on chronic (4) CVA (cerebral vascular accident) (5) S/P AKA (above knee amputation) bilateral (6) Decubitus skin ulcer (7) Pleural effusion on left (8) Alzheimer's dementia (9) Feeding by G-tube Respiratory: monitor respiratory rate, adjust FIO2, CXR Cardiac: continue to monitor HR/BP Renal: F/U I&O, decrease IV fluid Infectious Disease: check cultures Gastrointestinal: continue feedings/current rate Endocrine: monitor blood sugar, check HgA1C Hematologic: monitor H/H Neurologic: PRN Morphine Prophylaxis: Protonix Disposition: keep in ICU Notes Reviewed: renal Discussed with: consultants, nurse case managementcore manager - Objective Last 24 Hour Vital Signs Date Time Temp Pulse Resp B/P (MAP) Pulse Ox O2 Delivery O2 Flow Rate FiO2 03/11/19 10:00 88 25 98/50 100 Room Air 03/11/19 09:45 89 22 92/59 98 Room Air 03/11/19 09:15 86 33 98/54 99 Room Air 03/11/19 09:00 97/55 03/11/19 09:00 91 30 97/55 98 Room Air 03/11/19 08:47 98/57 03/11/19 08:46 98/57 03/11/19 08:45 85 33 98/57 100 Room Air 03/11/19 08:42 100 Room Air 21 03/11/19 08:42 82 20 100 Room Air 21 03/11/19 08:30 80 30 113/54 100 Room Air 2.0 03/11/19 08:15 95 28 119/57 100 Nasal Cannula 2.0 03/11/19 08:00 99/53 03/11/19 08:00 98.6 90 28 99/53 98 Nasal Cannula 2.0 03/11/19 08:00 Room Air 03/11/19 07:45 81 21 91/53 100 Nasal Cannula 2.0 03/11/19 07:30 87 31 92/58 100 Nasal Cannula 2.0 03/11/19 07:15 83 28 99/56 100 Nasal Cannula 2.0 03/11/19 07:00 83 33 92/58 99 Nasal Cannula 2.0 03/11/19 07:00 92/58 03/11/19 06:00 82 33 99/54 99 Nasal Cannula 03/11/19 05:30 84 33 107/61 99 Nasal Cannula 03/11/19 05:00 96 33 93/61 99 Nasal Cannula 03/11/19 04:30 87 33 93/47 99 Nasal Cannula 03/11/19 04:00 Room Air 03/11/19 04:00 98.6 85 34 96/50 99 Nasal Cannula 03/11/19 04:00 85 03/11/19 03:30 85 32 98/61 99 Nasal Cannula 03/11/19 03:00 86/52 03/11/19 03:00 86 32 86/52 99 Nasal Cannula 03/11/19 02:42 103/49 03/11/19 02:30 84 33 104/50 99 Nasal Cannula 03/11/19 02:00 83 33 81/47 100 Nasal Cannula 03/11/19 02:00 81/47 03/11/19 01:30 81 31 102/53 100 Nasal Cannula 03/11/19 01:00 83 31 91/44 100 Nasal Cannula 03/11/19 01:00 91/48 03/11/19 00:30 82 33 96/45 100 Nasal Cannula 03/11/19 00:00 84 03/11/19 00:00 98.2 82 33 90/49 100 Nasal Cannula 03/11/19 00:00 Room Air 03/10/19 23:30 81 33 90/48 100 Nasal Cannula 03/10/19 23:00 95 33 100/53 99 Nasal Cannula 03/10/19 22:30 83 27 92/45 100 Nasal Cannula 03/10/19 22:00 78 25 96/52 100 Nasal Cannula 03/10/19 21:30 78 25 93/55 100 Nasal Cannula 03/10/19 21:00 81 26 83/48 100 Nasal Cannula 03/10/19 20:30 80 29 85/56 100 Nasal Cannula 03/10/ 20:00 82 03/10/19 20:00 79 30 92/55 100 Nasal Cannula 03/10/ 20:00 Room Air 03/10/19 19:45 79 28 99/54 100 Nasal Cannula 03/10/19 19:30 98.6 88 28 109/52 100 Nasal Cannula 2.0 03/10/19 19:23 100 Nasal Cannula 2.0 28 03/10/19 19:22 124 26 100 Nasal Cannula 2.0 28 03/10/19 19:00 82 27 97/52 100 Room Air 03/10/19 18:51 93/57 03/10/19 18:30 88 27 93/57 100 Room Air 03/10/19 18:00 88 27 103/53 100 Room Air 03/10/19 17:30 88 37 94/50 97 Room Air 03/10/19 17:00 88 37 105/35 97 Room Air 03/10/19 16:30 88 37 100/40 97 Room Air 03/10/19 16:00 84 03/10/19 16:00 Room Air 03/10/19 16:00 99.1 86 37 97/37 98 Room Air 03/10/19 15:30 97 37 89/50 97 Room Air 03/10/19 15:00 97 37 92/35 97 Room Air 03/10/19 15:00 95/47 03/10/19 14:30 97 37 78/48 97 Room Air 03/10/19 14:00 97 37 97/53 97 Room Air 03/10/19 14:00 84/49 03/10/19 13:30 97 37 80/41 97 Room Air 03/10/19 13:00 97 37 80/41 97 Room Air 03/10/19 13:00 109/53 03/10/19 12:45 97 37 109/53 97 Room Air 03/10/19 12:30 97 37 106/45 97 Room Air 03/10/19 12:15 97 37 90/48 97 Room Air 03/10/19 12:00 Room Air 03/10/19 12:00 99.2 96 37 90/60 97 Room Air 03/10/19 12:00 109/39 03/10/19 12:00 99 03/10/19 11:45 98 37 109/39 97 Room Air 03/10/19 11:30 101 37 106/56 97 Room Air 03/10/19 11:15 100 35 91/52 97 Room Air 03/10/19 11:00 93 37 78/45 97 Room Air 03/10/19 11:00 78/45 03/10/19 10:45 94 37 75/46 97 Room Air 03/10/19 10:30 95 37 82/48 97 Room Air 03/10/19 10:15 101 28 101/49 97 Room Air Status: awake Condition: critical HEENT: atraumatic Abdomen: soft, non-tender Extremities: no C/C/E, edema Accucheck: 146 Critical Care - Subjective Condition: critical FI02: 21 Sputum Amount: None Tube Feeding Amount: 50 I&O: Intake and Output 03/10/19 03/11/19 19:00 07:00 Intake Total 2032.06 ml 2237.67 ml Output Total 1760 ml 1350 ml Balance 272.06 ml 887.67 ml Intake Oral 0 ml Free Water 390 ml 130 ml IV Total 1432.06 ml 1607.67 ml Tube Feeding 210 ml 500 ml Output Urine Total 1760 ml 1350 ml # Bowel Movements 4 4 CXR: no change Labs: Laboratory Tests Test 03/10/19 12:00 03/10/19 14:42 03/11/19 04:35 Amikacin Level Trough < 2.5 ug/mL (4.0-8.0) L Amikacin Level Peak 22.0 ug/mL (25.0-35.0) L White Blood Count 10.1 K/UL (4.8-10.8) Red Blood Count 3.45 M/UL (4.70-6.10) L Hemoglobin 10.5 G/DL (14.2-18.0) L Hematocrit 31.1 % (42.0-52.0) L Mean Corpuscular Volume 90 FL (80-99) Mean Corpuscular Hemoglobin 30.3 PG (27.0-31.0) Mean Corpuscular Hemoglobin Concent 33.6 G/DL (32.0-36.0) Red Cell Distribution Width 14.8 % (11.6-14.8) Platelet Count 123 K/UL (150-450) L Mean Platelet Volume 8.8 FL (6.5-10.1) Neutrophils (%) (Auto) 56.2 % (45.0-75.0) Lymphocytes (%) (Auto) 35.6 % (20.0-45.0) Monocytes (%) (Auto) 6.6 % (1.0-10.0) Eosinophils (%) (Auto) 0.8 % (0.0-3.0) Basophils (%) (Auto) 0.8 % (0.0-2.0) Sodium Level 141 MMOL/L (136-145) Potassium Level 4.4 MMOL/L (3.5-5.1) Chloride Level 113 MMOL/L (98-107) H Carbon Dioxide Level 23 MMOL/L (21-32) Anion Gap 5 mmol/L (5-15) Blood Urea Nitrogen 6 mg/dL (7-18) L Creatinine 0.5 MG/DL (0.55-1.30) L Estimat Glomerular Filtration Rate > 60 mL/min (>60) Glucose Level 143 MG/DL (74-106) H Uric Acid 3.3 MG/DL (2.6-7.2) Calcium Level 7.4 MG/DL (8.5-10.1) L Phosphorus Level 2.5 MG/DL (2.5-4.9) Magnesium Level 2.0 MG/DL (1.8-2.4) Total Bilirubin 0.6 MG/DL (0.2-1.0) Aspartate Amino Transf (AST/SGOT) 35 U/L (15-37) Alanine Aminotransferase (ALT/SGPT) 20 U/L (12-78) Alkaline Phosphatase 61 U/L (46-116) Total Protein 5.9 G/DL (6.4-8.2) L Albumin 1.8 G/DL (3.4-5.0) L Globulin 4.1 g/dL Albumin/Globulin Ratio 0.4 (1.0-2.7) L Jaylin Dickson MD Mar 11, 2019 10:14
--- NOTE | 2019-03-11 11:08 | NUR ---
NURSE NOTES: Patient was turned and repositioned q2hr. Oral care and muro care provided. Patient kept clean and dry. Levophed running at 16mcg/min via right subclavian TLC. BP stable at this time.
--- NOTE | 2019-03-11 11:38 | Infectious Diseases Prog Note ---
Assessment/Plan Assessment/Plan Assessment: Severe Sepsis- likely 2ry to UTI and PNA -03/08 CXR: Mildly worsening patchy consolidation throughout the left upper and lower lungs compared to the prior exam, concerning for pneumonia. Persistent mild elevation of the left hemidiaphragm. Cannot exclude small layering left pleural effusion. -u/a wbc tnct, nti neg, leuk +3; ucx >100k P. mirabilsi (S Zosyn, Ceftriaxone ; R Cipro) -Bcx NTD -sp cx p -CXR: There is volume loss at the left lung base again noted unchanged. Left hemidiaphragm is elevated. Low grade fever Leukocytosis, SP JESUS, SP hx of UTI 11/2018, sp Rx --u/a wbc tnct, nit+, leuk +3; ucx >100k P. mirabilis (S Ceftriaxone, Ertapenem, Zosyn) HTN CVA dysphagia s/p GT Dm2 b/l AKA non verbal advanced dementia PVD NH resident Plan: -Continue empiric IV Vancomycin, AMikacin #5 -Switch Ertapenem #5 to Meropenem given worsening hemodynamics -03/07 SP Zosyn x1 -/ SP Ceftriaxone #3 -12/25 SP IV Vancomycin #3, Cefepime #3 -12/23 SP Flagyl #1 -f/u cx (sp cx, Bl) -Monitor CBC/CMP, temperatures -Bcx x2 Thank you for this consultation. Will continue to follow along with you. Discussed with RN Subjective Allergies: Coded Allergies: No Known Allergies (Unverified , 03/07/19) Subjective afebrile >24hrs no leukcoytosis levophed increased to 16 bcx NTD sp cx p Objective Vital Signs Last 24 Hour Vital Signs Date Time Temp Pulse Resp B/P (MAP) Pulse Ox O2 Delivery O2 Flow Rate FiO2 03/11/19 11:00 88 28 107/50 100 Room Air 03/11/19 11:00 107/50 03/11/19 10:55 105/56 03/11/19 10:50 85/47 03/11/19 10:45 88 32 82/50 100 Room Air 03/11/19 10:45 82/50 03/11/19 10:30 87 26 83/47 100 Room Air 03/11/19 10:30 83/47 03/11/19 10:15 89 36 91/50 99 Room Air 03/11/19 10:00 88 25 98/50 100 Room Air 03/11/19 10:00 98/50 03/11/19 09:45 89 22 92/59 98 Room Air 03/11/19 09:15 86 33 98/54 99 Room Air 03/11/19 09:00 97/55 03/11/19 09:00 91 30 97/55 98 Room Air 03/11/19 08:47 98/57 03/11/19 08:46 98/57 03/11/19 08:45 85 33 98/57 100 Room Air 03/11/19 08:42 100 Room Air 21 03/11/19 08:42 82 20 100 Room Air 21 03/11/19 08:30 80 30 113/54 100 Room Air 2.0 03/11/19 08:15 95 28 119/57 100 Nasal Cannula 2.0 03/11/19 08:00 86 03/11/19 08:00 99/53 03/11/19 08:00 98.6 90 28 99/53 98 Nasal Cannula 2.0 03/11/19 08:00 Room Air 03/11/19 07:45 81 21 91/53 100 Nasal Cannula 2.0 03/11/19 07:30 87 31 92/58 100 Nasal Cannula 2.0 03/11/19 07:15 83 28 99/56 100 Nasal Cannula 2.0 03/11/19 07:00 83 33 92/58 99 Nasal Cannula 2.0 03/11/19 07:00 92/58 03/11/19 06:00 82 33 99/54 99 Nasal Cannula 03/11/19 05:30 84 33 107/61 99 Nasal Cannula 03/11/19 05:00 96 33 93/61 99 Nasal Cannula 03/11/19 04:30 87 33 93/47 99 Nasal Cannula 03/11/19 04:00 Room Air 03/11/19 04:00 98.6 85 34 96/50 99 Nasal Cannula 03/11/19 04:00 85 03/11/19 03:30 85 32 98/61 99 Nasal Cannula 03/11/19 03:00 86/52 03/11/19 03:00 86 32 86/52 99 Nasal Cannula 03/11/19 02:42 103/49 03/11/19 02:30 84 33 104/50 99 Nasal Cannula 03/11/19 02:00 83 33 81/47 100 Nasal Cannula 03/11/19 02:00 81/47 03/11/19 01:30 81 31 102/53 100 Nasal Cannula 03/11/19 01:00 83 31 91/44 100 Nasal Cannula 03/11/19 01:00 91/48 03/11/19 00:30 82 33 96/45 100 Nasal Cannula 03/11/19 00:00 84 03/11/19 00:00 98.2 82 33 90/49 100 Nasal Cannula 03/11/19 00:00 Room Air 03/10/19 23:30 81 33 90/48 100 Nasal Cannula 03/10/19 23:00 95 33 100/53 99 Nasal Cannula 03/10/19 22:30 83 27 92/45 100 Nasal Cannula 03/10/19 22:00 78 25 96/52 100 Nasal Cannula 03/10/19 21:30 78 25 93/55 100 Nasal Cannula 03/10/19 21:00 81 26 83/48 100 Nasal Cannula 03/10/19 20:30 80 29 85/56 100 Nasal Cannula 03/10/19 20:00 82 03/10/19 20:00 79 30 92/55 100 Nasal Cannula 03/10/19 20:00 Room Air 03/10/19 19:45 79 28 99/54 100 Nasal Cannula 03/10/19 19:30 98.6 88 28 109/52 100 Nasal Cannula 2.0 03/10/19 19:23 100 Nasal Cannula 2.0 28 03/10/19 19:22 124 26 100 Nasal Cannula 2.0 28 03/10/19 19:00 82 27 97/52 100 Room Air 03/10/19 18:51 93/57 03/10/19 18:30 88 27 93/57 100 Room Air 03/10/19 18:00 88 27 103/53 100 Room Air 03/10/19 17:30 88 37 94/50 97 Room Air 03/10/19 17:00 88 37 105/35 97 Room Air 03/10/19 16:30 88 37 100/40 97 Room Air 03/10/19 16:00 84 03/10/19 16:00 Room Air 03/10/19 16:00 99.1 86 37 97/37 98 Room Air 03/10/19 15:30 97 37 89/50 97 Room Air 03/10/19 15:00 97 37 92/35 97 Room Air 03/10/19 15:00 95/47 03/10/19 14:30 97 37 78/48 97 Room Air 03/10/19 14:00 97 37 97/53 97 Room Air 03/10/19 14:00 84/49 03/10/19 13:30 97 37 80/41 97 Room Air 03/10/19 13:00 97 37 80/41 97 Room Air 03/10/19 13:00 109/53 03/10/19 12:45 97 37 109/53 97 Room Air 03/10/19 12:30 97 37 106/45 97 Room Air 03/10/19 12:15 97 37 90/48 97 Room Air 03/10/19 12:00 Room Air 03/10/19 12:00 99.2 96 37 90/60 97 Room Air 03/10/19 12:00 109/39 03/10/19 12:00 99 03/10/19 11:45 98 37 109/39 97 Room Air Height (Feet): 3 Height (Inches): 6.00 Weight (Pounds): 118 Objective General Appearance: moderate distress - Appears diaphoretic and is tachycardic Head: normocephalic, atraumatic Eyes: bilateral eye PERRL, bilateral eye EOMI ENT: dry mucus membranes Neck: supple Respiratory: no retraction, no accessory muscle use, crackles - Bilaterally Cardiovascular: tachycardia Gastrointestinal: non tender, soft, other - Feeding tube in place Musculoskeletal: other - Bilateral [id number] amputations does not follow commands, right upper extremity paralysis Neurologic: other - Patient has eyes open however does not follow commands is not verbal Psychiatric: normal inspection Skin: other - Scars formations bilateral femoral area Laboratory Tests Test 03/10/19 12:00 03/10/19 14:42 03/11/19 04:35 Amikacin Level Trough < 2.5 ug/mL (4.0-8.0) L Amikacin Level Peak 22.0 ug/mL (25.0-35.0) L White Blood Count 10.1 K/UL (4.8-10.8) Red Blood Count 3.45 M/UL (4.70-6.10) L Hemoglobin 10.5 G/DL (14.2-18.0) L Hematocrit 31.1 % (42.0-52.0) L Mean Corpuscular Volume 90 FL (80-99) Mean Corpuscular Hemoglobin 30.3 PG (27.0-31.0) Mean Corpuscular Hemoglobin Concent 33.6 G/DL (32.0-36.0) Red Cell Distribution Width 14.8 % (11.6-14.8) Platelet Count 123 K/UL (150-450) L Mean Platelet Volume 8.8 FL (6.5-10.1) Neutrophils (%) (Auto) 56.2 % (45.0-75.0) Lymphocytes (%) (Auto) 35.6 % (20.0-45.0) Monocytes (%) (Auto) 6.6 % (1.0-10.0) Eosinophils (%) (Auto) 0.8 % (0.0-3.0) Basophils (%) (Auto) 0.8 % (0.0-2.0) Sodium Level 141 MMOL/L (136-145) Potassium Level 4.4 MMOL/L (3.5-5.1) Chloride Level 113 MMOL/L (98-107) H Carbon Dioxide Level 23 MMOL/L (21-32) Anion Gap 5 mmol/L (5-15) Blood Urea Nitrogen 6 mg/dL (7-18) L Creatinine 0.5 MG/DL (0.55-1.30) L Estimat Glomerular Filtration Rate > 60 mL/min (>60) Glucose Level 143 MG/DL (74-106) H Uric Acid 3.3 MG/DL (2.6-7.2) Calcium Level 7.4 MG/DL (8.5-10.1) L Phosphorus Level 2.5 MG/DL (2.5-4.9) Magnesium Level 2.0 MG/DL (1.8-2.4) Total Bilirubin 0.6 MG/DL (0.2-1.0) Aspartate Amino Transf (AST/SGOT) 35 U/L (15-37) Alanine Aminotransferase (ALT/SGPT) 20 U/L (12-78) Alkaline Phosphatase 61 U/L (46-116) Total Protein 5.9 G/DL (6.4-8.2) L Albumin 1.8 G/DL (3.4-5.0) L Globulin 4.1 g/dL Albumin/Globulin Ratio 0.4 (1.0-2.7) L Current Medications Medications (Trade) Dose Ordered Sig/Jennifer Route PRN Reason Start Time Stop Time Status Last Admin Dose Admin Acetaminophen (Tylenol) 650 mg Q4H PRN ORAL fever 03/07/19 11:30 04/06/19 07:29 03/09/19 08:10 Albuterol/ Ipratropium (Albuterol/ Ipratropium) 3 ml Q4H PRN HHN Shortness of Breath 03/07/19 09:00 03/12/19 08:59 03/10/19 01:49 Amikacin Protocol (Amikacin pharmacy to dose) 1 ea DAILY PRN MISC AMIKACIN 03/07/19 10:30 04/06/19 10:29 Amikacin Sulfate 400 mg/Sodium Chloride 111.6 ml @ 111.6 mls/ hr Q24H IV 03/11/19 13:00 03/18/19 12:59 Aspirin (ASA) 81 mg DAILY ORAL 03/09/19 09:00 04/08/19 08:59 03/11/19 08:44 Chlorhexidine Gluconate (Rani-Hex 2%) 1 applic DAILY@2000 TOPIC 03/07/19 20:00 04/06/19 19:59 03/10/19 20:09 Dextrose (Dextrose 50%) 25 ml Q30M PRN IV Hypoglycemia 03/07/19 15:15 04/06/19 15:14 Dextrose (Dextrose 50%) 50 ml Q30M PRN IV Hypoglycemia 03/07/19 15:15 04/06/19 15:14 Ertapenem 1 gm/ Sodium Chloride 55 ml @ 110 mls/hr Q24H IV 03/08/19 22:00 03/13/19 21:59 03/10/19 22:05 Heparin Sodium (Porcine) (Heparin 5000 units/ml) 5,000 units EVERY 12 HOURS SUBQ 03/07/19 09:00 04/06/19 08:59 03/11/19 08:45 Insulin Aspart (NovoLOG) Q6HR SUBQ 03/07/19 15:15 04/06/19 15:14 03/11/19 05:43 Midodrine (Pro-Amatine) 5 mg THREE TIMES A DAY ORAL 03/10/19 13:00 04/09/19 12:59 03/11/19 08:44 Morphine Sulfate (Morphine Sulfate) 2 mg Q4H PRN IVP Severe Pain (Pain Scale 7-10) 03/07/19 09:00 03/14/19 08:59 Norepinephrine Bitartrate 4 mg/ Dextrose 254 ml @ 0 mls/hr Q24H IV 03/09/19 19:30 04/08/19 19:29 03/11/19 08:47 Ondansetron HCl (Zofran) 4 mg Q6H PRN IVP Nausea & Vomiting 03/07/19 09:00 04/06/19 08:59 Pantoprazole (Protonix) 40 mg Q12HR IVP 03/07/19 21:00 04/06/19 08:59 03/11/19 08:44 Polyethylene Glycol (Miralax) 17 gm DAILYPRN PRN ORAL Constipation 03/08/19 07:30 04/06/19 07:29 Quetiapine Fumarate (SEROquel) 12.5 mg BID ORAL 03/07/19 09:00 04/06/19 08:59 03/11/19 08:45 Sodium Chloride 1,000 ml @ 50 mls/hr Q20H IV 03/11/19 10:15 04/10/19 10:14 03/11/19 10:18 Vancomycin HCl (Vanco rx to dose) 1 ea DAILY PRN MISC VANCOMYCIN 03/07/19 10:30 04/06/19 10:29 Vancomycin HCl 750 mg/Dextrose 275 ml @ 183.333 mls/hr Q24H IVPB 03/09/19 14:00 03/14/19 13:59 03/10/19 14:43 Deepti Connolly M.D. Mar 11, 2019 11:38
--- NOTE | 2019-03-11 12:17 | Cardiology Progress Note ---
Assessment/Plan Assessment/Plan 1. Hypernatremia. 2. Dehydration. 3. Azotemia. 4. Sinus tachycardia. 5. Septic shock. 6. Renal failure. 7. Bilateral amputation. 8. Dementia. 9. Peripheral vascular disease. 10. Systemic hypertension. 11. abn cardiac enzyme demand related 12. hypoalbuminemia 13. hypotension blood cx remain neg na much improved ivf has been decreased some pvc per staff need pressor for hypotension tele reviewed sinus pac pvcs am cortisol has been checked an is fine ekg noted trop trend back to normal Objective Last 24 Hour Vital Signs Date Time Temp Pulse Resp B/P (MAP) Pulse Ox O2 Delivery O2 Flow Rate FiO2 03/11/19 11:30 114/55 03/11/19 11:15 113/58 03/11/19 11:00 88 28 107/50 100 Room Air 03/11/19 11:00 107/50 03/11/19 10:55 105/56 03/11/19 10:50 85/47 03/11/19 10:45 88 32 82/50 100 Room Air 03/11/19 10:45 82/50 03/11/19 10:30 87 26 83/47 100 Room Air 03/11/19 10:30 83/47 03/11/19 10:15 89 36 91/50 99 Room Air 03/11/19 10:00 88 25 98/50 100 Room Air 03/11/19 10:00 98/50 03/11/19 09:45 89 22 92/59 98 Room Air 03/11/19 09:15 86 33 98/54 99 Room Air 03/11/19 09:00 97/55 03/11/19 09:00 91 30 97/55 98 Room Air 03/11/19 08:47 98/57 03/11/19 08:46 98/57 03/11/19 08:45 85 33 98/57 100 Room Air 03/11/19 08:42 100 Room Air 21 03/11/19 08:42 82 20 100 Room Air 21 03/11/19 08:30 80 30 113/54 100 Room Air 2.0 03/11/19 08:15 95 28 119/57 100 Nasal Cannula 2.0 03/11/19 08:00 86 03/11/19 08:00 99/53 03/11/19 08:00 98.6 90 28 99/53 98 Nasal Cannula 2.0 03/11/19 08:00 Room Air 03/11/19 07:45 81 21 91/53 100 Nasal Cannula 2.0 03/11/19 07:30 87 31 92/58 100 Nasal Cannula 2.0 03/11/19 07:15 83 28 99/56 100 Nasal Cannula 2.0 03/11/19 07:00 83 33 92/58 99 Nasal Cannula 2.0 03/11/19 07:00 92/58 03/11/19 06:00 82 33 99/54 99 Nasal Cannula 03/11/19 05:30 84 33 107/61 99 Nasal Cannula 03/11/19 05:00 96 33 93/61 99 Nasal Cannula 03/11/19 04:30 87 33 93/47 99 Nasal Cannula 03/11/19 04:00 Room Air 03/11/19 04:00 98.6 85 34 96/50 99 Nasal Cannula 03/11/19 04:00 85 03/11/19 03:30 85 32 98/61 99 Nasal Cannula 03/11/19 03:00 86/52 03/11/19 03:00 86 32 86/52 99 Nasal Cannula 03/11/19 02:42 103/49 03/11/19 02:30 84 33 104/50 99 Nasal Cannula 03/11/19 02:00 83 33 81/47 100 Nasal Cannula 03/11/19 02:00 81/47 03/11/19 01:30 81 31 102/53 100 Nasal Cannula 03/11/19 01:00 83 31 91/44 100 Nasal Cannula 03/11/19 01:00 91/48 03/11/19 00:30 82 33 96/45 100 Nasal Cannula 03/11/19 00:00 84 03/11/19 00:00 98.2 82 33 90/49 100 Nasal Cannula 03/11/19 00:00 Room Air 03/10/19 23:30 81 33 90/48 100 Nasal Cannula 03/10/19 23:00 95 33 100/53 99 Nasal Cannula 03/10/19 22:30 83 27 92/45 100 Nasal Cannula 03/10/ 22:00 78 25 96/52 100 Nasal Cannula 03/10/ 21:30 78 25 93/55 100 Nasal Cannula 03/10/ 21:00 81 26 83/48 100 Nasal Cannula 03/10/19 20:30 80 29 85/56 100 Nasal Cannula 03/10/19 20:00 82 03/10/19 20:00 79 30 92/55 100 Nasal Cannula 03/10/19 20:00 Room Air 03/10/19 19:45 79 28 99/54 100 Nasal Cannula 03/10/19 19:30 98.6 88 28 109/52 100 Nasal Cannula 2.0 03/10/19 19:23 100 Nasal Cannula 2.0 28 03/10/19 19:22 124 26 100 Nasal Cannula 2.0 28 03/10/19 19:00 82 27 97/52 100 Room Air 03/10/19 18:51 93/57 03/10/19 18:30 88 27 93/57 100 Room Air 03/10/19 18:00 88 27 103/53 100 Room Air 03/10/19 17:30 88 37 94/50 97 Room Air 03/10/19 17:00 88 37 105/35 97 Room Air 03/10/19 16:30 88 37 100/40 97 Room Air 03/10/19 16:00 84 03/10/19 16:00 Room Air 03/10/19 16:00 99.1 86 37 97/37 98 Room Air 03/10/19 15:30 97 37 89/50 97 Room Air 03/10/19 15:00 97 37 92/35 97 Room Air 03/10/19 15:00 95/47 03/10/19 14:30 97 37 78/48 97 Room Air 03/10/19 14:00 97 37 97/53 97 Room Air 03/10/19 14:00 84/49 03/10/19 13:30 97 37 80/41 97 Room Air 03/10/19 13:00 97 37 80/41 97 Room Air 03/10/19 13:00 109/53 03/10/19 12:45 97 37 109/53 97 Room Air 03/10/19 12:30 97 37 106/45 97 Room Air 03/10/19 12:15 97 37 90/48 97 Room Air Intake and Output 03/10/19 03/11/19 19:00 07:00 Intake Total 2032.06 ml 2237.67 ml Output Total 1760 ml 1350 ml Balance 272.06 ml 887.67 ml Intake Oral 0 ml Free Water 390 ml 130 ml IV Total 1432.06 ml 1607.67 ml Tube Feeding 210 ml 500 ml Output Urine Total 1760 ml 1350 ml # Bowel Movements 4 4 Laboratory Tests Test 03/10/19 14:42 03/11/19 04:35 Amikacin Level Peak 22.0 ug/mL (25.0-35.0) L White Blood Count 10.1 K/UL (4.8-10.8) Red Blood Count 3.45 M/UL (4.70-6.10) L Hemoglobin 10.5 G/DL (14.2-18.0) L Hematocrit 31.1 % (42.0-52.0) L Mean Corpuscular Volume 90 FL (80-99) Mean Corpuscular Hemoglobin 30.3 PG (27.0-31.0) Mean Corpuscular Hemoglobin Concent 33.6 G/DL (32.0-36.0) Red Cell Distribution Width 14.8 % (11.6-14.8) Platelet Count 123 K/UL (150-450) L Mean Platelet Volume 8.8 FL (6.5-10.1) Neutrophils (%) (Auto) 56.2 % (45.0-75.0) Lymphocytes (%) (Auto) 35.6 % (20.0-45.0) Monocytes (%) (Auto) 6.6 % (1.0-10.0) Eosinophils (%) (Auto) 0.8 % (0.0-3.0) Basophils (%) (Auto) 0.8 % (0.0-2.0) Sodium Level 141 MMOL/L (136-145) Potassium Level 4.4 MMOL/L (3.5-5.1) Chloride Level 113 MMOL/L (98-107) H Carbon Dioxide Level 23 MMOL/L (21-32) Anion Gap 5 mmol/L (5-15) Blood Urea Nitrogen 6 mg/dL (7-18) L Creatinine 0.5 MG/DL (0.55-1.30) L Estimat Glomerular Filtration Rate > 60 mL/min (>60) Glucose Level 143 MG/DL (74-106) H Uric Acid 3.3 MG/DL (2.6-7.2) Calcium Level 7.4 MG/DL (8.5-10.1) L Phosphorus Level 2.5 MG/DL (2.5-4.9) Magnesium Level 2.0 MG/DL (1.8-2.4) Total Bilirubin 0.6 MG/DL (0.2-1.0) Aspartate Amino Transf (AST/SGOT) 35 U/L (15-37) Alanine Aminotransferase (ALT/SGPT) 20 U/L (12-78) Alkaline Phosphatase 61 U/L (46-116) Total Protein 5.9 G/DL (6.4-8.2) L Albumin 1.8 G/DL (3.4-5.0) L Globulin 4.1 g/dL Albumin/Globulin Ratio 0.4 (1.0-2.7) L Pradeep Wen MD Mar 11, 2019 12:17
--- NOTE | 2019-03-11 12:25 | NUR ---
NURSE NOTES: Patient seen by Dr. Wen. Levophed running at 16mcg/min. Per MD, to titrate levophed by 1mcg/min every 30mins to wean off.
[2019-03-11] MEDS ORDERED: Amikacin 400 MG in NS 110 ML IV SCH (13:00)
--- NOTE | 2019-03-11 13:00 | NUR ---
NURSE NOTES: Decreased levophed to 15mcg/min. BP 104/47, SR noted on monitoring coordinator.
--- NOTE | 2019-03-11 13:25 | NUR ---
NURSE NOTES: Patient had episode of seizure, noted with jerking movement which lasted for 10 seconds. No injuries noted. VSS. BP 100/49, SR noted on cardiac technician. Left a message to Dr. Dickson. side rails are padded. Addendum: 03/11/19 at 1331 by KIKE LOPEZ RN Patient opens eyes spontanouesly, non-verbal, able to follow simple commends. no changes in mental status. On room air, O2 sat 100%.
--- NOTE | 2019-03-11 13:47 | NUR ---
NURSE NOTES: vanco trough 3.0 noted. Okay to give 1400 vanco as scheduled per pharmacist
[2019-03-11] MEDS: Vancomycin 750mg/D5W 275ml IVPB SCH ×2 (14:44)
[2019-03-11] MEDS: Meropenem 1 GM in NS 55 ML IVPB SCH (14:44)
--- NOTE | 2019-03-11 15:40 | NUR ---
NURSE NOTES: Patient asleep, easily arousable. No acute distress noted. Patient was turned and repositioned q2hrs. No BM this shift. Patient kept clean and dry. Levophed running at 10mcg/min. BP 106/58, SR w/ PVCs noted. Patient on room air, O2 sat 97%. wound dressings intact, clean and dry.
[2019-03-11] MEDS ORDERED: Sterile Water Irrig 1000ml IRRIG ONE (16:05)
[2019-03-11] MEDS ORDERED: Tubing IV Secondary IV ONE (16:05)
[2019-03-11] MEDS ORDERED: NS 275ml ONE (16:05)
--- NOTE | 2019-03-11 16:25 | NUR ---
NURSE NOTES: PRN ativan order received for seizure from Dr. Dickson. No more episodes of seizure. Patient resting in bed comfortably. no distress noted.
[2019-03-11] MEDS ORDERED: LORazepam Inj 2mg/ml 1ml IV PRN (16:30)
--- NOTE | 2019-03-11 17:41 | NUR ---
NURSE NOTES: Patient is asleep, Patient on levophed running at 10mcg/min. Tube feeding running at 50ml/hr. Patient tolerating well. HOB kept elevated. On room air. O2 sat 100%. Rhonchi lung sounds upon auscultation in bilateral lungs. Patient was turned and repositioned. Patient kept clean and dry.
--- NOTE | 2019-03-11 18:15 | Internal Med Progress Note ---
Subjective Date of Service: Mar 11, 2019 Physician Name Darrick Stout Attending Physician Yannick Marshall MD Current Medications Medications (Trade) Dose Ordered Sig/Jennifer Route PRN Reason Start Time Stop Time Status Last Admin Dose Admin Acetaminophen (Tylenol) 650 mg Q4H PRN ORAL fever 03/07/19 11:30 04/06/19 07:29 03/09/19 08:10 Albuterol/ Ipratropium (Albuterol/ Ipratropium) 3 ml Q4H PRN HHN Shortness of Breath 03/07/19 09:00 03/12/19 08:59 03/10/19 01:49 Amikacin Protocol (Amikacin pharmacy to dose) 1 ea DAILY PRN MISC AMIKACIN 03/07/19 10:30 04/06/19 10:29 Amikacin Sulfate 400 mg/Sodium Chloride 111.6 ml @ 111.6 mls/ hr Q24H IV 03/11/19 13:00 03/18/19 12:59 03/11/19 13:07 Aspirin (ASA) 81 mg DAILY ORAL 03/09/19 09:00 04/08/19 08:59 03/11/19 08:44 Chlorhexidine Gluconate (Rani-Hex 2%) 1 applic DAILY@2000 TOPIC 03/07/19 20:00 04/06/19 19:59 03/10/19 20:09 Dextrose (Dextrose 50%) 25 ml Q30M PRN IV Hypoglycemia 03/07/19 15:15 04/06/19 15:14 Dextrose (Dextrose 50%) 50 ml Q30M PRN IV Hypoglycemia 03/07/19 15:15 04/06/19 15:14 Heparin Sodium (Porcine) (Heparin 5000 units/ml) 5,000 units EVERY 12 HOURS SUBQ 03/07/19 09:00 04/06/19 08:59 03/11/19 08:45 Insulin Aspart (NovoLOG) Q6HR SUBQ 03/07/19 15:15 04/06/19 15:14 03/11/19 17:26 Lorazepam (Ativan 2mg/ml 1ml) 2 mg Q4H PRN IV For Anxiety/seizure 03/11/19 16:30 03/18/19 16:29 Meropenem 1 gm/ Sodium Chloride 55 ml @ 110 mls/hr Q12HR@0200,1400 IVPB 03/11/19 14:00 03/16/19 13:59 03/11/19 14:44 Midodrine (Pro-Amatine) 5 mg THREE TIMES A DAY ORAL 03/10/19 13:00 04/09/19 12:59 03/11/19 17:24 Morphine Sulfate (Morphine Sulfate) 2 mg Q4H PRN IVP Severe Pain (Pain Scale 7-10) 03/07/19 09:00 03/14/19 08:59 Norepinephrine Bitartrate 4 mg/ Dextrose 254 ml @ 0 mls/hr Q24H IV 03/09/19 19:30 04/08/19 19:29 03/11/19 14:43 Ondansetron HCl (Zofran) 4 mg Q6H PRN IVP Nausea & Vomiting 03/07/19 09:00 04/06/19 08:59 Pantoprazole (Protonix) 40 mg Q12HR IVP 03/07/19 21:00 04/06/19 08:59 03/11/19 08:44 Polyethylene Glycol (Miralax) 17 gm DAILYPRN PRN ORAL Constipation 03/08/19 07:30 04/06/19 07:29 Quetiapine Fumarate (SEROquel) 12.5 mg BID ORAL 03/07/19 09:00 04/06/19 08:59 03/11/19 17:24 Sodium Chloride 1,000 ml @ 50 mls/hr Q20H IV 03/11/19 10:15 04/10/19 10:14 03/11/19 10:18 Vancomycin HCl (Vanco rx to dose) 1 ea DAILY PRN MISC VANCOMYCIN 03/07/19 10:30 04/06/19 10:29 Vancomycin HCl 750 mg/Dextrose 275 ml @ 183.333 mls/hr Q12HR@0200,1400 IVPB 03/11/19 14:00 03/16/19 13:59 03/11/19 14:44 Allergies: Coded Allergies: No Known Allergies (Unverified , 03/07/19) ROS Limited/Unobtainable: Yes Subjective 68 YO M admitted with hypotension. Now sepsis. ICU. Cover for Int Travon-Dr Marshall. Continues on levophed Objective Last Vital Signs Date Time Temp Pulse Resp B/P (MAP) Pulse Ox O2 Delivery O2 Flow Rate FiO2 10/15/19 18:00 91 32 95/49 98 Room Air 03/11/19 12:00 98.6 03/11/19 08:42 21 03/11/19 08:30 2.0 Laboratory Tests Test 03/11/19 04:35 03/11/19 13:10 White Blood Count 10.1 K/UL (4.8-10.8) Red Blood Count 3.45 M/UL (4.70-6.10) L Hemoglobin 10.5 G/DL (14.2-18.0) L Hematocrit 31.1 % (42.0-52.0) L Mean Corpuscular Volume 90 FL (80-99) Mean Corpuscular Hemoglobin 30.3 PG (27.0-31.0) Mean Corpuscular Hemoglobin Concent 33.6 G/DL (32.0-36.0) Red Cell Distribution Width 14.8 % (11.6-14.8) Platelet Count 123 K/UL (150-450) L Mean Platelet Volume 8.8 FL (6.5-10.1) Neutrophils (%) (Auto) 56.2 % (45.0-75.0) Lymphocytes (%) (Auto) 35.6 % (20.0-45.0) Monocytes (%) (Auto) 6.6 % (1.0-10.0) Eosinophils (%) (Auto) 0.8 % (0.0-3.0) Basophils (%) (Auto) 0.8 % (0.0-2.0) Sodium Level 141 MMOL/L (136-145) Potassium Level 4.4 MMOL/L (3.5-5.1) Chloride Level 113 MMOL/L (98-107) H Carbon Dioxide Level 23 MMOL/L (21-32) Anion Gap 5 mmol/L (5-15) Blood Urea Nitrogen 6 mg/dL (7-18) L Creatinine 0.5 MG/DL (0.55-1.30) L Estimat Glomerular Filtration Rate > 60 mL/min (>60) Glucose Level 143 MG/DL (74-106) H Uric Acid 3.3 MG/DL (2.6-7.2) Calcium Level 7.4 MG/DL (8.5-10.1) L Phosphorus Level 2.5 MG/DL (2.5-4.9) Magnesium Level 2.0 MG/DL (1.8-2.4) Total Bilirubin 0.6 MG/DL (0.2-1.0) Aspartate Amino Transf (AST/SGOT) 35 U/L (15-37) Alanine Aminotransferase (ALT/SGPT) 20 U/L (12-78) Alkaline Phosphatase 61 U/L (46-116) Total Protein 5.9 G/DL (6.4-8.2) L Albumin 1.8 G/DL (3.4-5.0) L Globulin 4.1 g/dL Albumin/Globulin Ratio 0.4 (1.0-2.7) L Vancomycin Level Trough 3.0 ug/mL (5.0-12.0) L Microbiology Date/Time Source Procedure Growth Status 03/10/19 04:00 Sputum Induced Gram Stain - Final Resulted 03/10/19 04:00 Sputum Induced Sputum Culture Pending Resulted 03/10/19 18:00 Leg Left Gram Stain - Final Resulted 03/10/19 18:00 Leg Left Wound Culture Pending Resulted Intake and Output 03/10/19 03/11/19 19:00 07:00 Intake Total 2032.06 ml 2237.67 ml Output Total 1760 ml 1350 ml Balance 272.06 ml 887.67 ml Intake Oral 0 ml Free Water 390 ml 130 ml IV Total 1432.06 ml 1607.67 ml Tube Feeding 210 ml 500 ml Output Urine Total 1760 ml 1350 ml # Bowel Movements 4 4 Objective PHYSICAL EXAMINATION: GENERAL: The patient is awake, opens his eyes, cachectic, malnutrition. HEAD AND NECK: Pupils are equal and reactive to light. Anicteric. Neck was supple. No JVD. LUNGS: Clear. No wheezing or rales. Decreased air in bases. Coarse breath sounds. HEART: S1, S2. Tachycardic. No murmur or gallops. ABDOMEN: Soft, nondistended, and nontender. Positive bowel sounds. G-tube is in place. RECTAL/GENITOURINARY: The patient has a Pelayo catheter. EXTREMITIES: Bilateral AKA was noted with stump intact. NEUROLOGIC: Limited secondary to the patient's status. The patient is moving the left upper extremity. Right upper extremity is flaccid. [employer] II through XII grossly intact, but it is very hard to follow. Neurologic examination is very limited secondary to the patient's status. Assessment/Plan Assessment/Plan ASSESSMENT: 1. Sepsis, septic shock most likely secondary to the urinary tract infection. 2. Acute kidney injury on chronic renal insufficiency due to severe dehydration. 3. Urinary tract infection. 4. Hypertension, presently hypotensive. 5. History of CVA. 6. Dysphagia, status post PEG. 7. Diabetes type 2. 8. Status post bilateral AKA. 9. Advanced dementia. 10. History of stroke with right-sided hemiparesis. 11. Hypernatremia/hypokalemia PLAN: 1. Admit the patient to the ICU. 2. Urine culture=Proteus. Continue amikacin, ertapenem and vanco per ID= Dr Connolly Code status at this time is Full Code. Resume longterm medication, G-tube feeding. Darrick Stout MD Mar 11, 2019 18:15
--- NOTE | 2019-03-11 19:26 | NUR ---
HAND-OFF: Report given to SARAH Cottrell.
--- NOTE | 2019-03-11 19:30 | NUR ---
NURSE NOTES: Please see physical assesment,pt is awake followed simple command, on Room air 02 sat >95%, suctioned tk whitish to beige secretions. HOB kept elevated. Watch for any resp. distress.
[2019-03-11] MEDS: Dyna-Hex 2% Top Sol 2oz TOPIC SCH (19:39)
--- NOTE | 2019-03-11 22:00 | NUR ---
NURSE NOTES: Pt had x1 lg bm. cleaned up pt.
--- NOTE | 2019-03-11 23:57 | NUR ---
NURSE NOTES: Accucheck 160 Pt given 3 u Nov ins subcutaneous Rt abdominal side.
[2019-03-12] VITALS (74 sets, daily range): BP systolic 74–128; BP diastolic 33–91
[2019-03-12] MEDS: Meropenem 1 GM in NS 55 ML IVPB SCH ×2 (02:21→14:43)
[2019-03-12] MEDS: Vancomycin 750mg/D5W 275ml IVPB SCH ×4 (02:21→14:44)
[2019-03-12 04:54] LABS: BASOPHILS % (AUTO) 0.3 % (0.0-2.0); EOSINOPHILS % (AUTO) 0.8 % (0.0-3.0); HEMATOCRIT 33.3 % (42.0-52.0); HEMOGLOBIN 10.6 G/DL (14.2-18.0); LYMPHOCYTES % (AUTO) 38.8 % (20.0-45.0); MEAN CORPUSCULAR VOLUME 90 FL (80-99); MONOCYTES % (AUTO) 4.4 % (1.0-10.0); NEUTROPHILS % (AUTO) 55.6 % (45.0-75.0); PLATELET COUNT 139 K/UL (150-450); RED CELL DISTRIBUTION WIDTH 14.3 % (11.6-14.8); WHITE BLOOD COUNT 11.5 K/UL (4.8-10.8)
[2019-03-12 05:18] LABS: INR 1.1 (0.9-1.1)
[2019-03-12 05:34] LABS: ALANINE AMINOTRANSFERASE 16 U/L (12-78); ALBUMIN 1.7 G/DL (3.4-5.0); ALBUMIN/GLOBULIN RATIO 0.4 (1.0-2.7); ALKALINE PHOSPHATASE 80 U/L (46-116); ANION GAP 6 mmol/L (5-15); BILIRUBIN,TOTAL 0.3 MG/DL (0.2-1.0); BLOOD UREA NITROGEN 6 mg/dL (7-18); CALCIUM 7.9 MG/DL (8.5-10.1); CARBON DIOXIDE 24 MMOL/L (21-32); CHLORIDE 115 MMOL/L (98-107); CREATININE 0.6 MG/DL (0.55-1.30); PHOSPHORUS 2.2 MG/DL (2.5-4.9); POTASSIUM 3.8 MMOL/L (3.5-5.1); SODIUM 145 MMOL/L (136-145)
[2019-03-12] MEDS: NovoLOG Insulin Flexpen SUBQ SCH ×4 (05:52→23:51)
[2019-03-12 06:17] LABS: ASPARTATE AMINO TRANSFERASE 18 U/L (15-37)
--- NOTE | 2019-03-12 07:26 | NUR ---
HAND-OFF: Report given to Gil SMITH.
[2019-03-12] MEDS: Aspirin Baby 81mg ORAL SCH (08:34)
[2019-03-12] MEDS: Heparin 5000 units/ml inj SUBQ SCH ×2 (08:35→20:27)
[2019-03-12] MEDS: Pantoprazole Inj IVP SCH ×2 (08:35→20:26)
--- NOTE | 2019-03-12 09:05 | NUR ---
NURSE NOTES: Patient noted with O2 sat 88-90%. Place the patient on 2L O2 via NC. O2 improved to 96% on 2L.
--- NOTE | 2019-03-12 09:40 | NUR ---
NURSE NOTES: Nasotracheal suction provided by RT. Thin moderate amount of white/chris color secretion noted. O2 sat 98% on 2L via NC.
--- NOTE | 2019-03-12 09:45 | NUR ---
NURSE NOTES: Patient seen by Dr. Dickson. MD made aware of tachypnea and moderate to large secretion from nasotracheal secretion. Patient on 2L O2 via NC, levophed running at 12mcg/min.
--- NOTE | 2019-03-12 09:57 | Pulmonolgy Critical Care Note ---
Critical Care - Asmt/Plan Problems: (1) Nosocomial pneumonia (2) Severe sepsis (3) Renal failure (ARF), acute on chronic (4) CVA (cerebral vascular accident) (5) S/P AKA (above knee amputation) bilateral (6) Decubitus skin ulcer (7) Pleural effusion on left (8) Alzheimer's dementia (9) Feeding by G-tube Respiratory: monitor respiratory rate, adjust FIO2 Cardiac: continue pressors, continue to monitor HR/BP Renal: F/U I&O, keep IV fluid Gastrointestinal: continue feedings/current rate Endocrine: monitor blood sugar, check TSH, continue sliding scale insulin Hematologic: monitor H/H, transfuse if hgb<8.5 Neurologic: PRN Morphine, keep patient comfortable Affect: PRN ativan Prophylaxis: Heparin Time Spent (Minutes): 40 Notes Reviewed: cardio, renal Discussed with: nurses, consultants, rehabilitation case coordinatorself storage manager - Objective Last 24 Hour Vital Signs Date Time Temp Pulse Resp B/P (MAP) Pulse Ox O2 Delivery O2 Flow Rate FiO2 03/12/19 09:45 82 25 117/60 96 Nasal Cannula 2.0 03/12/19 09:30 81 28 110/56 97 Nasal Cannula 2.0 03/12/19 09:19 96/52 03/12/19 09:15 84 31 96/52 97 Nasal Cannula 2.0 03/12/19 09:00 82 30 116/59 97 Room Air 03/12/19 09:00 106/59 03/12/19 08:45 83 34 118/56 95 Room Air 03/12/19 08:30 82 29 125/55 98 Room Air 03/12/19 08:30 125/55 03/12/19 08:20 88 34 106/53 99 Room Air 03/12/19 08:15 92 34 78/33 95 Room Air 03/12/19 08:15 78/33 03/12/19 08:11 69 16 100 Room Air 21 03/12/19 08:11 100 Room Air 21 03/12/19 08:00 89 03/12/19 08:00 99.8 85 28 90/52 100 Room Air 03/12/19 08:00 Room Air 03/12/19 08:00 90/52 03/12/19 07:45 84 28 117/53 99 Room Air 03/12/19 07:30 88 25 109/91 96 Room Air 03/12/19 07:30 109/91 03/12/19 07:15 99 27 79/57 97 Room Air 03/12/19 07:15 79/57 03/12/19 07:00 87 25 96/73 96 Room Air 03/12/19 06:30 80 30 102/54 96 Room Air 03/12/19 06:00 82 30 109/54 96 Room Air 03/12/19 06:00 109/54 03/12/19 05:30 83 29 107/56 98 Room Air 03/12/19 05:00 83 27 103/54 99 Room Air 03/12/19 05:00 107/56 03/12/19 04:38 83 03/12/19 04:30 82 27 98/55 98 Room Air 03/12/19 04:00 99.4 80 27 127/51 98 Room Air 03/12/19 04:00 Room Air 03/12/19 03:00 127/55 03/12/19 03:00 77 27 128/55 97 Room Air 03/12/19 02:30 81 27 100/55 97 Room Air 03/12/19 02:00 79 27 93/47 97 Room Air 03/12/19 02:00 105/54 03/12/19 01:30 79 25 125/59 98 Room Air 03/12/19 01:00 77 27 112/51 99 Room Air 03/12/19 00:33 90 03/12/19 00:30 82 28 92/49 97 03/12/19 00:26 Room Air 03/12/19 00:15 81 27 82/48 100 03/12/19 00:00 80 30 111/56 100 03/11/19 23:45 77 26 118/55 100 03/11/19 23:30 78 21 116/54 98 Room Air 03/11/19 23:30 78 21 116/54 98 03/11/19 23:15 81 28 99/54 98 03/11/19 23:15 81 28 99/54 98 03/11/19 23:00 79 30 99/55 100 Room Air 03/11/19 23:00 79 30 99/55 100 03/11/19 22:30 82 30 99/54 99 Room Air 03/11/19 22:00 101/52 03/11/19 22:00 81 32 86/53 100 Room Air 03/11/19 21:30 82 30 98/51 100 Room Air 03/11/19 21:00 80 29 123/56 100 Room Air 03/11/19 20:57 94/54 03/11/19 20:30 83 31 93/49 99 Room Air 03/11/19 20:00 Room Air 03/11/19 20:00 98.6 84 34 85/52 99 Room Air 03/11/19 20:00 87 03/11/19 19:19 83 18 100 Room Air 21 03/11/19 19:19 100 Room Air 21 03/11/19 19:00 99/52 03/11/19 19:00 80 28 99/52 97 Room Air 03/11/19 18:45 100/55 03/11/19 18:45 85 28 100/55 96 Room Air 03/11/19 18:30 82 31 92/55 97 Room Air 03/11/19 18:30 92/55 03/11/19 18:15 87 26 79/49 99 Room Air 03/11/19 18:15 79/49 03/11/19 18:00 91 32 95/49 98 Room Air 03/11/19 18:00 95/49 03/11/19 17:45 83 22 83/49 99 Room Air 03/11/19 17:45 83/49 03/11/19 17:30 97/54 03/11/19 17:30 87 34 97/54 98 Room Air 03/11/19 17:15 84/46 03/11/19 17:15 85 25 84/46 99 Room Air 03/11/19 17:00 93/49 03/11/19 17:00 87 30 93/49 98 Room Air 03/11/19 16:45 89 24 93/46 98 Room Air 03/11/19 16:30 89/50 03/11/19 16:30 82 22 89/50 100 Room Air 03/11/19 16:15 83 22 91/52 99 Room Air 03/11/19 16:00 106/54 03/11/19 16:00 Room Air 03/11/19 16:00 84 24 106/54 99 Room Air 03/11/19 16:00 82 03/11/19 15:45 83 21 106/58 100 Room Air 03/11/19 15:30 110/59 03/11/19 15:30 84 22 110/59 98 Room Air 03/11/19 15:15 81 24 104/49 100 Room Air 03/11/19 15:00 93 34 102/59 95 Room Air 03/11/19 15:00 102/59 03/11/19 14:45 87 35 105/43 100 Room Air 03/11/19 14:43 117/58 03/11/19 14:42 117/58 03/11/19 14:30 87 31 117/58 100 Room Air 03/11/19 14:30 117/58 03/11/19 14:15 87 26 97/55 100 Room Air 03/11/19 14:00 87 29 99/54 100 Room Air 03/11/19 14:00 99/54 03/11/19 13:45 87 32 91/50 96 Room Air 03/11/19 13:30 87 34 98/53 99 Room Air 03/11/19 13:30 98/53 03/11/19 13:15 90 32 100/49 99 Room Air 03/11/19 13:00 88 28 104/47 100 Room Air 03/11/19 13:00 104/47 03/11/19 12:45 84 30 105/55 100 Room Air 03/11/19 12:30 96/52 03/11/19 12:30 90 26 96/52 99 Room Air 03/11/19 12:15 90 32 99/44 98 Room Air 03/11/19 12:00 Room Air 03/11/19 12:00 98.6 83 28 103/51 100 Room Air 03/11/19 12:00 87 03/11/19 12:00 103/51 03/11/19 11:45 82 29 92/50 99 Room Air 03/11/19 11:30 114/55 03/11/19 11:30 76 24 114/55 100 Room Air 03/11/19 11:15 113/58 03/11/19 11:15 87 33 113/58 100 Room Air 03/11/19 11:00 88 28 107/50 100 Room Air 03/11/19 11:00 107/50 03/11/19 10:55 105/56 03/11/19 10:50 85/47 03/11/19 10:45 88 32 82/50 100 Room Air 03/11/19 10:45 82/50 03/11/19 10:30 87 26 83/47 100 Room Air 03/11/19 10:30 83/47 03/11/19 10:15 89 36 91/50 99 Room Air 03/11/19 10:00 88 25 98/50 100 Room Air 03/11/19 10:00 98/50 Status: sedated Condition: critical HEENT: atraumatic, normocephalic Lungs: chest wall tender Heart: HR/BP stable Abdomen: soft, active bowel sounds Extremities: edema Decubiti: location Micro: Microbiology Date/Time Source Procedure Growth Status 03/10/19 04:00 Sputum Induced Gram Stain - Final Resulted 03/10/19 04:00 Sputum Culture - Preliminary Staphylococcus Aureus Ramya Albicans Usual Respiratory Bere Resulted 03/10/19 18:00 Leg Left Gram Stain - Final Resulted 03/10/19 18:00 Leg Left Wound Culture Pending Resulted Accucheck: 111 Critical Care - Subjective ROS Limited/Unobtainable: Yes Interval Events: looks comfortable Condition: critical EKG Rhythm: Sinus Rhythm FI02: 21 Sputum Amount: None Tube Feeding Amount: 50 I&O: Intake and Output 03/11/19 03/12/19 18:59 06:59 Intake Total 2633.137 ml 1833.86 ml Output Total 1645 ml 1710 ml Balance 988.137 ml 123.86 ml Free Water 230 ml 230 ml IV Total 1803.137 ml 1003.86 ml Tube Feeding 600 ml 600 ml Output Urine Total 1645 ml 1710 ml CXR: left effusion Labs: Laboratory Tests Test 03/11/19 13:10 03/12/19 03:10 Vancomycin Level Trough 3.0 ug/mL (5.0-12.0) L White Blood Count 11.5 K/UL (4.8-10.8) H Red Blood Count 3.70 M/UL (4.70-6.10) L Hemoglobin 10.6 G/DL (14.2-18.0) L Hematocrit 33.3 % (42.0-52.0) L Mean Corpuscular Volume 90 FL (80-99) Mean Corpuscular Hemoglobin 28.7 PG (27.0-31.0) Mean Corpuscular Hemoglobin Concent 32.0 G/DL (32.0-36.0) Red Cell Distribution Width 14.3 % (11.6-14.8) Platelet Count 139 K/UL (150-450) L Mean Platelet Volume 7.3 FL (6.5-10.1) Neutrophils (%) (Auto) 55.6 % (45.0-75.0) Lymphocytes (%) (Auto) 38.8 % (20.0-45.0) Monocytes (%) (Auto) 4.4 % (1.0-10.0) Eosinophils (%) (Auto) 0.8 % (0.0-3.0) Basophils (%) (Auto) 0.3 % (0.0-2.0) Prothrombin Time 11.4 SEC (9.30-11.50) Prothromb Time International Ratio 1.1 (0.9-1.1) Activated Partial Thromboplast Time 33 SEC (23-33) Sodium Level 145 MMOL/L (136-145) Potassium Level 3.8 MMOL/L (3.5-5.1) Chloride Level 115 MMOL/L (98-107) H Carbon Dioxide Level 24 MMOL/L (21-32) Anion Gap 6 mmol/L (5-15) Blood Urea Nitrogen 6 mg/dL (7-18) L Creatinine 0.6 MG/DL (0.55-1.30) Estimat Glomerular Filtration Rate > 60 mL/min (>60) Glucose Level 182 MG/DL (74-106) H Calcium Level 7.9 MG/DL (8.5-10.1) L Phosphorus Level 2.2 MG/DL (2.5-4.9) L Magnesium Level 2.0 MG/DL (1.8-2.4) Total Bilirubin 0.3 MG/DL (0.2-1.0) Aspartate Amino Transf (AST/SGOT) 18 U/L (15-37) Alanine Aminotransferase (ALT/SGPT) 16 U/L (12-78) Alkaline Phosphatase 80 U/L (46-116) Total Protein 6.1 G/DL (6.4-8.2) L Albumin 1.7 G/DL (3.4-5.0) L Globulin 4.4 g/dL Albumin/Globulin Ratio 0.4 (1.0-2.7) L Jaylin Dickson MD Mar 12, 2019 09:57
[2019-03-12] MEDS ORDERED: Potassium Phosphate 20 MM in NS 275 ML IV ONE (10:00)
--- NOTE | 2019-03-12 11:43 | Infectious Diseases Prog Note ---
Assessment/Plan Assessment/Plan Assessment: Severe Sepsis- likely 2ry to UTI and PNA -03/08 CXR: Mildly worsening patchy consolidation throughout the left upper and lower lungs compared to the prior exam, concerning for pneumonia. Persistent mild elevation of the left hemidiaphragm. Cannot exclude small layering left pleural effusion. -u/a wbc tnct, nti neg, leuk +3; ucx >100k P. mirabilis (S Zosyn, Ceftriaxone ; R Cipro) -Bcx NTD -sp cx S.aureus -CXR: There is volume loss at the left lung base again noted unchanged. Left hemidiaphragm is elevated. Low grade fever Leukocytosis, SP L stump ulcer -wound cx NTD JESUS, SP hx of UTI 11/2018, sp Rx --u/a wbc tnct, nit+, leuk +3; ucx >100k P. mirabilis (S Ceftriaxone, Ertapenem, Zosyn) HTN CVA dysphagia s/p GT Dm2 b/l AKA non verbal advanced dementia PVD NH resident Plan: -Continue empiric IV Vancomycin #6 pending S.auerus sensi -d/c empiric AMikacin #6 -Continue Meropenem #2 (abx #6) given worsening hemodynamics -03/11 SP Ertapenem #5 -03/07 SP Zosyn x1 -/ SP Ceftriaxone #3 -12/25 SP IV Vancomycin #3, Cefepime #3 -12/23 SP Flagyl #1 -f/u cx (sp cx, Bl) -Monitor CBC/CMP, temperatures -f/u repaet Bcx x2 Thank you for this consultation. Will continue to follow along with you. Discussed with RN Subjective Allergies: Coded Allergies: No Known Allergies (Unverified , 03/07/19) Subjective afebrile >48hrs mild leukcoytosis levophed at 11 bcx NTD Objective Vital Signs Last 24 Hour Vital Signs Date Time Temp Pulse Resp B/P (MAP) Pulse Ox O2 Delivery O2 Flow Rate FiO2 03/12/19 10:45 80 26 112/46 97 Nasal Cannula 2.0 03/12/19 10:30 79 27 102/56 98 Nasal Cannula 2.0 03/12/19 10:30 102/56 03/12/19 10:15 78 25 105/52 98 Nasal Cannula 2.0 03/12/19 10:00 101/43 03/12/19 10:00 86 34 101/43 95 Nasal Cannula 2.0 03/12/19 09:45 82 25 117/60 96 Nasal Cannula 2.0 03/12/19 09:30 110/56 03/12/19 09:30 81 28 110/56 97 Nasal Cannula 2.0 03/12/19 09:19 96/52 03/12/19 09:18 96/52 03/12/19 09:15 84 31 96/52 97 Nasal Cannula 2.0 03/12/19 09:00 82 30 116/59 97 Room Air 03/12/19 09:00 106/59 03/12/19 08:45 83 34 118/56 95 Room Air 03/12/19 08:30 82 29 125/55 98 Room Air 03/12/19 08:30 125/55 03/12/19 08:20 88 34 106/53 99 Room Air 03/12/19 08:15 92 34 78/33 95 Room Air 03/12/19 08:15 78/33 03/12/19 08:11 69 16 100 Room Air 21 03/12/19 08:11 100 Room Air 21 03/12/19 08:00 89 03/12/19 08:00 99.8 85 28 90/52 100 Room Air 03/12/19 08:00 Room Air 03/12/19 08:00 90/52 03/12/19 07:45 84 28 117/53 99 Room Air 03/12/19 07:30 88 25 109/91 96 Room Air 03/12/19 07:30 109/91 03/12/19 07:15 99 27 79/57 97 Room Air 03/12/19 07:15 79/57 03/12/19 07:00 87 25 96/73 96 Room Air 03/12/19 06:30 80 30 102/54 96 Room Air 03/12/19 06:00 82 30 109/54 96 Room Air 03/12/19 06:00 109/54 03/12/19 05:30 83 29 107/56 98 Room Air 03/12/19 05:00 83 27 103/54 99 Room Air 03/12/19 05:00 107/56 03/12/19 04:38 83 03/12/19 04:30 82 27 98/55 98 Room Air 03/12/19 04:00 99.4 80 27 127/51 98 Room Air 03/12/19 04:00 Room Air 03/12/19 03:00 127/55 03/12/19 03:00 77 27 128/55 97 Room Air 03/12/19 02:30 81 27 100/55 97 Room Air 03/12/19 02:00 79 27 93/47 97 Room Air 03/12/19 02:00 105/54 03/12/19 01:30 79 25 125/59 98 Room Air 03/12/19 01:00 77 27 112/51 99 Room Air 03/12/19 00:33 90 03/12/19 00:30 82 28 92/49 97 03/12/19 00:26 Room Air 03/12/19 00:15 81 27 82/48 100 03/12/19 00:00 80 30 111/56 100 03/11/19 23:45 77 26 118/55 100 03/11/19 23:30 78 21 116/54 98 Room Air 03/11/19 23:30 78 21 116/54 98 03/11/19 23:15 81 28 99/54 98 03/11/19 23:15 81 28 99/54 98 03/11/19 23:00 79 30 99/55 100 Room Air 03/11/19 23:00 79 30 99/55 100 03/11/19 22:30 82 30 99/54 99 Room Air 03/11/19 22:00 101/52 03/11/19 22:00 81 32 86/53 100 Room Air 03/11/19 21:30 82 30 98/51 100 Room Air 03/11/19 21:00 80 29 123/56 100 Room Air 03/11/19 20:57 94/54 03/11/19 20:30 83 31 93/49 99 Room Air 03/11/19 20:00 Room Air 03/11/19 20:00 98.6 84 34 85/52 99 Room Air 03/11/19 20:00 87 03/11/19 19:19 83 18 100 Room Air 21 03/11/19 19:19 100 Room Air 21 03/11/19 19:00 99/52 03/11/19 19:00 80 28 99/52 97 Room Air 10/15/19 18:45 100/55 03/11/19 18:45 85 28 100/55 96 Room Air 03/11/19 18:30 82 31 92/55 97 Room Air 03/11/19 18:30 92/55 03/11/19 18:15 87 26 79/49 99 Room Air 03/11/19 18:15 79/49 03/11/19 18:00 91 32 95/49 98 Room Air 03/11/19 18:00 95/49 03/11/19 17:45 83 22 83/49 99 Room Air 03/11/19 17:45 83/49 03/11/19 17:30 97/54 03/11/19 17:30 87 34 97/54 98 Room Air 03/11/19 17:15 84/46 03/11/19 17:15 85 25 84/46 99 Room Air 03/11/19 17:00 93/49 03/11/19 17:00 87 30 93/49 98 Room Air 03/11/19 16:45 89 24 93/46 98 Room Air 03/11/19 16:30 89/50 03/11/19 16:30 82 22 89/50 100 Room Air 03/11/19 16:15 83 22 91/52 99 Room Air 03/11/19 16:00 106/54 03/11/19 16:00 Room Air 03/11/19 16:00 84 24 106/54 99 Room Air 03/11/19 16:00 82 03/11/19 15:45 83 21 106/58 100 Room Air 03/11/19 15:30 110/59 03/11/19 15:30 84 22 110/59 98 Room Air 03/11/19 15:15 81 24 104/49 100 Room Air 03/11/19 15:00 93 34 102/59 95 Room Air 03/11/19 15:00 102/59 03/11/19 14:45 87 35 105/43 100 Room Air 03/11/19 14:43 117/58 03/11/19 14:42 117/58 03/11/19 14:30 87 31 117/58 100 Room Air 03/11/19 14:30 117/58 03/11/19 14:15 87 26 97/55 100 Room Air 03/11/19 14:00 87 29 99/54 100 Room Air 03/11/19 14:00 99/54 03/11/19 13:45 87 32 91/50 96 Room Air 03/11/19 13:30 87 34 98/53 99 Room Air 03/11/19 13:30 98/53 03/11/19 13:15 90 32 100/49 99 Room Air 03/11/19 13:00 88 28 104/47 100 Room Air 03/11/19 13:00 104/47 03/11/19 12:45 84 30 105/55 100 Room Air 03/11/19 12:30 96/52 03/11/19 12:30 90 26 96/52 99 Room Air 03/11/19 12:15 90 32 99/44 98 Room Air 03/11/19 12:00 Room Air 03/11/19 12:00 98.6 83 28 103/51 100 Room Air 03/11/19 12:00 87 03/11/19 12:00 103/51 03/11/19 11:45 82 29 92/50 99 Room Air 03/11/19 11:30 114/55 03/11/19 11:30 76 24 114/55 100 Room Air Height (Feet): 3 Height (Inches): 6.00 Weight (Pounds): 116 Objective General Appearance: moderate distress - Appears diaphoretic and is tachycardic Head: normocephalic, atraumatic Eyes: bilateral eye PERRL, bilateral eye EOMI ENT: dry mucus membranes Neck: supple Respiratory: no retraction, no accessory muscle use, crackles - Bilaterally Cardiovascular: tachycardia Gastrointestinal: non tender, soft, other - Feeding tube in place Musculoskeletal: other - Bilateral [id number] amputations does not follow commands, right upper extremity paralysis Neurologic: other - Patient has eyes open however does not follow commands is not verbal Psychiatric: normal inspection Skin: other - Scars formations bilateral femoral area Microbiology Date/Time Source Procedure Growth Status 03/10/19 04:00 Sputum Induced Gram Stain - Final Resulted 03/10/19 04:00 Sputum Culture - Preliminary Staphylococcus Aureus Ramya Albicans Usual Respiratory Bere Resulted 03/10/19 18:00 Leg Left Gram Stain - Final Resulted 03/10/19 18:00 Leg Left Wound Culture - Preliminary NO GROWTH AFTER 24 HOURS Resulted Laboratory Tests Test 03/11/19 13:10 03/12/19 03:10 Vancomycin Level Trough 3.0 ug/mL (5.0-12.0) L White Blood Count 11.5 K/UL (4.8-10.8) H Red Blood Count 3.70 M/UL (4.70-6.10) L Hemoglobin 10.6 G/DL (14.2-18.0) L Hematocrit 33.3 % (42.0-52.0) L Mean Corpuscular Volume 90 FL (80-99) Mean Corpuscular Hemoglobin 28.7 PG (27.0-31.0) Mean Corpuscular Hemoglobin Concent 32.0 G/DL (32.0-36.0) Red Cell Distribution Width 14.3 % (11.6-14.8) Platelet Count 139 K/UL (150-450) L Mean Platelet Volume 7.3 FL (6.5-10.1) Neutrophils (%) (Auto) 55.6 % (45.0-75.0) Lymphocytes (%) (Auto) 38.8 % (20.0-45.0) Monocytes (%) (Auto) 4.4 % (1.0-10.0) Eosinophils (%) (Auto) 0.8 % (0.0-3.0) Basophils (%) (Auto) 0.3 % (0.0-2.0) Prothrombin Time 11.4 SEC (9.30-11.50) Prothromb Time International Ratio 1.1 (0.9-1.1) Activated Partial Thromboplast Time 33 SEC (23-33) Sodium Level 145 MMOL/L (136-145) Potassium Level 3.8 MMOL/L (3.5-5.1) Chloride Level 115 MMOL/L (98-107) H Carbon Dioxide Level 24 MMOL/L (21-32) Anion Gap 6 mmol/L (5-15) Blood Urea Nitrogen 6 mg/dL (7-18) L Creatinine 0.6 MG/DL (0.55-1.30) Estimat Glomerular Filtration Rate > 60 mL/min (>60) Glucose Level 182 MG/DL (74-106) H Calcium Level 7.9 MG/DL (8.5-10.1) L Phosphorus Level 2.2 MG/DL (2.5-4.9) L Magnesium Level 2.0 MG/DL (1.8-2.4) Total Bilirubin 0.3 MG/DL (0.2-1.0) Aspartate Amino Transf (AST/SGOT) 18 U/L (15-37) Alanine Aminotransferase (ALT/SGPT) 16 U/L (12-78) Alkaline Phosphatase 80 U/L (46-116) Total Protein 6.1 G/DL (6.4-8.2) L Albumin 1.7 G/DL (3.4-5.0) L Globulin 4.4 g/dL Albumin/Globulin Ratio 0.4 (1.0-2.7) L Current Medications Medications (Trade) Dose Ordered Sig/Jennifer Route PRN Reason Start Time Stop Time Status Last Admin Dose Admin Acetaminophen (Tylenol) 650 mg Q4H PRN ORAL fever 03/07/19 11:30 04/06/19 07:29 03/09/19 08:10 Amikacin Protocol (Amikacin pharmacy to dose) 1 ea DAILY PRN MISC AMIKACIN 03/07/19 10:30 04/06/19 10:29 Amikacin Sulfate 400 mg/Sodium Chloride 111.6 ml @ 111.6 mls/ hr Q24H IV 03/11/19 13:00 03/18/19 12:59 03/11/19 13:07 Aspirin (ASA) 81 mg DAILY ORAL 03/09/19 09:00 04/08/19 08:59 03/12/19 08:34 Chlorhexidine Gluconate (Rani-Hex 2%) 1 applic DAILY@2000 TOPIC 03/07/19 20:00 04/06/19 19:59 03/11/19 19:39 Dextrose (Dextrose 50%) 25 ml Q30M PRN IV Hypoglycemia 03/07/19 15:15 04/06/19 15:14 Dextrose (Dextrose 50%) 50 ml Q30M PRN IV Hypoglycemia 03/07/19 15:15 04/06/19 15:14 Heparin Sodium (Porcine) (Heparin 5000 units/ml) 5,000 units EVERY 12 HOURS SUBQ 03/07/19 09:00 04/06/19 08:59 03/12/19 08:35 Insulin Aspart (NovoLOG) Q6HR SUBQ 03/07/19 15:15 04/06/19 15:14 03/12/19 05:52 Lorazepam (Ativan 2mg/ml 1ml) 2 mg Q4H PRN IV For Anxiety/seizure 03/11/19 16:30 03/18/19 16:29 Meropenem 1 gm/ Sodium Chloride 55 ml @ 110 mls/hr Q12HR@0200,1400 IVPB 03/11/19 14:00 03/16/19 13:59 03/12/19 02:21 Midodrine (Pro-Amatine) 5 mg THREE TIMES A DAY ORAL 03/10/19 13:00 04/09/19 12:59 03/12/19 08:35 Morphine Sulfate (Morphine Sulfate) 2 mg Q4H PRN IVP Severe Pain (Pain Scale 7-10) 03/07/19 09:00 03/14/19 08:59 Norepinephrine Bitartrate 4 mg/ Dextrose 254 ml @ 0 mls/hr Q24H IV 03/09/19 19:30 04/08/19 19:29 03/12/19 09:19 Ondansetron HCl (Zofran) 4 mg Q6H PRN IVP Nausea & Vomiting 03/07/19 09:00 04/06/19 08:59 Pantoprazole (Protonix) 40 mg Q12HR IVP 03/07/19 21:00 04/06/19 08:59 03/12/19 08:35 Polyethylene Glycol (Miralax) 17 gm DAILYPRN PRN ORAL Constipation 03/08/19 07:30 04/06/19 07:29 Potassium Phosphate 20 mm/ Sodium Chloride 281.6667 ml @ 46.944 m... ONCE ONCE IV 03/12/19 10:00 03/12/19 15:59 03/12/19 09:14 Quetiapine Fumarate (SEROquel) 12.5 mg BID ORAL 03/07/19 09:00 04/06/19 08:59 03/12/19 08:34 Vancomycin HCl (Vanco rx to dose) 1 ea DAILY PRN MISC VANCOMYCIN 03/07/19 10:30 04/06/19 10:29 Vancomycin HCl 750 mg/Dextrose 275 ml @ 183.333 mls/hr Q12HR@0200,1400 IVPB 03/11/19 14:00 03/16/19 13:59 03/12/19 02:21 Deepti Connolly M.D. Mar 12, 2019 11:43
--- NOTE | 2019-03-12 11:55 | Internal Med Progress Note ---
Subjective Date of Service: Mar 12, 2019 Physician Name Darrick Stout Attending Physician Yannick Marshall MD Current Medications Medications (Trade) Dose Ordered Sig/Jennifer Route PRN Reason Start Time Stop Time Status Last Admin Dose Admin Acetaminophen (Tylenol) 650 mg Q4H PRN ORAL fever 03/07/19 11:30 04/06/19 07:29 03/09/19 08:10 Aspirin (ASA) 81 mg DAILY ORAL 03/09/19 09:00 04/08/19 08:59 03/12/19 08:34 Chlorhexidine Gluconate (Rani-Hex 2%) 1 applic DAILY@2000 TOPIC 03/07/19 20:00 04/06/19 19:59 03/11/19 19:39 Dextrose (Dextrose 50%) 25 ml Q30M PRN IV Hypoglycemia 03/07/19 15:15 04/06/19 15:14 Dextrose (Dextrose 50%) 50 ml Q30M PRN IV Hypoglycemia 03/07/19 15:15 04/06/19 15:14 Heparin Sodium (Porcine) (Heparin 5000 units/ml) 5,000 units EVERY 12 HOURS SUBQ 03/07/19 09:00 04/06/19 08:59 03/12/19 08:35 Insulin Aspart (NovoLOG) Q6HR SUBQ 03/07/19 15:15 04/06/19 15:14 03/12/19 05:52 Lorazepam (Ativan 2mg/ml 1ml) 2 mg Q4H PRN IV For Anxiety/seizure 03/11/19 16:30 03/18/19 16:29 Meropenem 1 gm/ Sodium Chloride 55 ml @ 110 mls/hr Q12HR@0200,1400 IVPB 03/11/19 14:00 03/16/19 13:59 03/12/19 02:21 Midodrine (Pro-Amatine) 5 mg THREE TIMES A DAY ORAL 03/10/19 13:00 04/09/19 12:59 03/12/19 08:35 Morphine Sulfate (Morphine Sulfate) 2 mg Q4H PRN IVP Severe Pain (Pain Scale 7-10) 03/07/19 09:00 03/14/19 08:59 Norepinephrine Bitartrate 4 mg/ Dextrose 254 ml @ 0 mls/hr Q24H IV 03/09/19 19:30 04/08/19 19:29 03/12/19 09:19 Ondansetron HCl (Zofran) 4 mg Q6H PRN IVP Nausea & Vomiting 03/07/19 09:00 04/06/19 08:59 Pantoprazole (Protonix) 40 mg Q12HR IVP 03/07/19 21:00 04/06/19 08:59 03/12/19 08:35 Polyethylene Glycol (Miralax) 17 gm DAILYPRN PRN ORAL Constipation 03/08/19 07:30 04/06/19 07:29 Potassium Phosphate 20 mm/ Sodium Chloride 281.6667 ml @ 46.944 m... ONCE ONCE IV 03/12/19 10:00 03/12/19 15:59 03/12/19 09:14 Quetiapine Fumarate (SEROquel) 12.5 mg BID ORAL 03/07/19 09:00 04/06/19 08:59 03/12/19 08:34 Vancomycin HCl (Vanco rx to dose) 1 ea DAILY PRN MISC VANCOMYCIN 03/07/19 10:30 04/06/19 10:29 Vancomycin HCl 750 mg/Dextrose 275 ml @ 183.333 mls/hr Q12HR@0200,1400 IVPB 03/11/19 14:00 03/16/19 13:59 03/12/19 02:21 Allergies: Coded Allergies: No Known Allergies (Unverified , 03/07/19) ROS Limited/Unobtainable: Yes Subjective 68 YO M admitted with hypotension. Now sepsis. ICU. Cover for Int Med-Dr Marshall. Continues on levophed Objective Last Vital Signs Date Time Temp Pulse Resp B/P (MAP) Pulse Ox O2 Delivery O2 Flow Rate FiO2 03/12/19 10:45 80 26 112/46 97 Nasal Cannula 2.0 03/12/19 08:11 21 03/12/19 08:00 99.8 Laboratory Tests Test 03/11/19 13:10 03/12/19 03:10 Vancomycin Level Trough 3.0 ug/mL (5.0-12.0) L White Blood Count 11.5 K/UL (4.8-10.8) H Red Blood Count 3.70 M/UL (4.70-6.10) L Hemoglobin 10.6 G/DL (14.2-18.0) L Hematocrit 33.3 % (42.0-52.0) L Mean Corpuscular Volume 90 FL (80-99) Mean Corpuscular Hemoglobin 28.7 PG (27.0-31.0) Mean Corpuscular Hemoglobin Concent 32.0 G/DL (32.0-36.0) Red Cell Distribution Width 14.3 % (11.6-14.8) Platelet Count 139 K/UL (150-450) L Mean Platelet Volume 7.3 FL (6.5-10.1) Neutrophils (%) (Auto) 55.6 % (45.0-75.0) Lymphocytes (%) (Auto) 38.8 % (20.0-45.0) Monocytes (%) (Auto) 4.4 % (1.0-10.0) Eosinophils (%) (Auto) 0.8 % (0.0-3.0) Basophils (%) (Auto) 0.3 % (0.0-2.0) Prothrombin Time 11.4 SEC (9.30-11.50) Prothromb Time International Ratio 1.1 (0.9-1.1) Activated Partial Thromboplast Time 33 SEC (23-33) Sodium Level 145 MMOL/L (136-145) Potassium Level 3.8 MMOL/L (3.5-5.1) Chloride Level 115 MMOL/L (98-107) H Carbon Dioxide Level 24 MMOL/L (21-32) Anion Gap 6 mmol/L (5-15) Blood Urea Nitrogen 6 mg/dL (7-18) L Creatinine 0.6 MG/DL (0.55-1.30) Estimat Glomerular Filtration Rate > 60 mL/min (>60) Glucose Level 182 MG/DL (74-106) H Calcium Level 7.9 MG/DL (8.5-10.1) L Phosphorus Level 2.2 MG/DL (2.5-4.9) L Magnesium Level 2.0 MG/DL (1.8-2.4) Total Bilirubin 0.3 MG/DL (0.2-1.0) Aspartate Amino Transf (AST/SGOT) 18 U/L (15-37) Alanine Aminotransferase (ALT/SGPT) 16 U/L (12-78) Alkaline Phosphatase 80 U/L (46-116) Total Protein 6.1 G/DL (6.4-8.2) L Albumin 1.7 G/DL (3.4-5.0) L Globulin 4.4 g/dL Albumin/Globulin Ratio 0.4 (1.0-2.7) L Microbiology Date/Time Source Procedure Growth Status 03/10/19 04:00 Sputum Induced Gram Stain - Final Resulted 03/10/19 04:00 Sputum Culture - Preliminary Staphylococcus Aureus Ramya Albicans Usual Respiratory Bere Resulted 03/10/19 18:00 Leg Left Gram Stain - Final Resulted 03/10/19 18:00 Leg Left Wound Culture - Preliminary NO GROWTH AFTER 24 HOURS Resulted Intake and Output 03/11/19 03/12/19 18:59 06:59 Intake Total 2633.137 ml 1833.86 ml Output Total 1645 ml 1710 ml Balance 988.137 ml 123.86 ml Free Water 230 ml 230 ml IV Total 1803.137 ml 1003.86 ml Tube Feeding 600 ml 600 ml Output Urine Total 1645 ml 1710 ml Objective PHYSICAL EXAMINATION: GENERAL: The patient is awake, opens his eyes, cachectic, malnutrition. HEAD AND NECK: Pupils are equal and reactive to light. Anicteric. Neck was supple. No JVD. LUNGS: Clear. No wheezing or rales. Decreased air in bases. Coarse breath sounds. HEART: S1, S2. Tachycardic. No murmur or gallops. ABDOMEN: Soft, nondistended, and nontender. Positive bowel sounds. G-tube is in place. RECTAL/GENITOURINARY: The patient has a Pelayo catheter. EXTREMITIES: Bilateral AKA was noted with stump intact. NEUROLOGIC: Limited secondary to the patient's status. The patient is moving the left upper extremity. Right upper extremity is flaccid. DATA INTEGRATION DEVELOPER II through XII grossly intact, but it is very hard to follow. Neurologic examination is very limited secondary to the patient's status. Assessment/Plan Assessment/Plan ASSESSMENT: 1. Sepsis, septic shock most likely secondary to the urinary tract infection. 2. Acute kidney injury on chronic renal insufficiency due to severe dehydration. 3. Urinary tract infection. 4. Hypertension, presently hypotensive. 5. History of CVA. 6. Dysphagia, status post PEG. 7. Diabetes type 2. 8. Status post bilateral AKA. 9. Advanced dementia. 10. History of stroke with right-sided hemiparesis. 11. Hypernatremia/hypokalemia PLAN: 1. Admit the patient to the ICU. 2. Urine culture=Proteus. Continue amikacin, meropenem and vanco per ID= Dr Connolly Code status at this time is Full Code. Resume usp medication, G-tube feeding. Darrick Stout MD Mar 12, 2019 11:55
--- NOTE | 2019-03-12 12:00 | NUR ---
NURSE NOTES: Patient asleep, easily arousable. No acute distress noted. Patient was turned and repositioned. Oral care and muro care provided.
--- NOTE | 2019-03-12 14:00 | NUR ---
NURSE NOTES: Patient was turned and repositioned. Patient kept clean and dry. patient resting in bed comfortably.
--- NOTE | 2019-03-12 15:51 | Nephrology Progress Note ---
Assessment/Plan Problem List: (1) Renal failure (ARF), acute on chronic (2) Hypernatremia (3) Dehydration (4) Hypokalemia Assessment Acute Renal Failure- ? Underlying CKD Dehydration Sepsis / UTI Dementia PEG s/p CVA s/p Bilateral AKA Decubiti Plan today's labs noted Hydrate + K and Phos supplement IV Monitor I&O and renal parameters avoid nephrotoxics albumin bolus BS abd BP check Subjective ROS Limited/Unobtainable: No Objective Objective Last 24 Hour Vital Signs Date Time Temp Pulse Resp B/P (MAP) Pulse Ox O2 Delivery O2 Flow Rate FiO2 03/12/19 15:48 116/47 03/12/19 15:30 121/53 03/12/19 15:00 96/46 03/12/19 15:00 81 25 96/46 99 Room Air 03/12/19 14:45 78 26 95/53 100 Room Air 03/12/19 14:30 73 25 120/61 99 Room Air 03/12/19 14:30 120/61 03/12/19 14:15 76 28 126/59 100 Room Air 03/12/19 14:00 79 29 111/62 100 Room Air 03/12/19 14:00 111/62 03/12/19 13:45 81 31 106/65 96 Room Air 03/12/19 13:30 81 28 100/59 97 Room Air 03/12/19 13:15 83 24 98/48 95 Room Air 03/12/19 13:00 92/54 03/12/19 13:00 82 28 92/54 95 Room Air 03/12/19 12:45 86 32 96/50 94 Nasal Cannula 2.0 03/12/19 12:30 82 31 91/49 95 Nasal Cannula 2.0 03/12/19 12:15 81 28 91/53 95 Nasal Cannula 2.0 03/12/19 12:00 98.9 75 21 98/50 95 Nasal Cannula 2.0 03/12/19 12:00 75 03/12/19 12:00 98/50 03/12/19 12:00 Nasal Cannula 2.0 03/12/19 11:30 80 27 94/50 97 Nasal Cannula 2.0 03/12/19 11:00 92/56 03/12/19 11:00 85 32 92/56 98 Nasal Cannula 2.0 03/12/19 10:45 80 26 112/46 97 Nasal Cannula 2.0 03/12/19 10:30 79 27 102/56 98 Nasal Cannula 2.0 03/12/19 10:30 102/56 03/12/19 10:15 78 25 105/52 98 Nasal Cannula 2.0 03/12/19 10:00 101/43 03/12/19 10:00 86 34 101/43 95 Nasal Cannula 2.0 03/12/19 09:45 82 25 117/60 96 Nasal Cannula 2.0 03/12/19 09:30 110/56 03/12/19 09:30 81 28 110/56 97 Nasal Cannula 2.0 03/12/19 09:19 96/52 03/12/19 09:18 96/52 03/12/19 09:15 84 31 96/52 97 Nasal Cannula 2.0 03/12/19 09:00 82 30 116/59 97 Room Air 03/12/19 09:00 106/59 03/12/19 08:45 83 34 118/56 95 Room Air 03/12/19 08:30 82 29 125/55 98 Room Air 03/12/19 08:30 125/55 03/12/19 08:20 88 34 106/53 99 Room Air 03/12/19 08:15 92 34 78/33 95 Room Air 03/12/19 08:15 78/33 03/12/19 08:11 69 16 100 Room Air 21 03/12/19 08:11 100 Room Air 21 03/12/19 08:00 89 03/12/19 08:00 99.8 85 28 90/52 100 Room Air 03/12/19 08:00 Room Air 03/12/19 08:00 90/52 03/12/19 07:45 84 28 117/53 99 Room Air 03/12/19 07:30 88 25 109/91 96 Room Air 03/12/19 07:30 109/91 03/12/19 07:15 99 27 79/57 97 Room Air 03/12/19 07:15 79/57 03/12/19 07:00 87 25 96/73 96 Room Air 03/12/19 06:30 80 30 102/54 96 Room Air 03/12/19 06:00 82 30 109/54 96 Room Air 03/12/19 06:00 109/54 03/12/19 05:30 83 29 107/56 98 Room Air 03/12/19 05:00 83 27 103/54 99 Room Air 03/12/19 05:00 107/56 03/12/19 04:38 83 03/12/19 04:30 82 27 98/55 98 Room Air 03/12/19 04:00 99.4 80 27 127/51 98 Room Air 03/12/19 04:00 Room Air 03/12/19 03:00 127/55 03/12/19 03:00 77 27 128/55 97 Room Air 03/12/19 02:30 81 27 100/55 97 Room Air 03/12/19 02:00 79 27 93/47 97 Room Air 03/12/19 02:00 105/54 03/12/19 01:30 79 25 125/59 98 Room Air 03/12/19 01:00 77 27 112/51 99 Room Air 03/12/19 00:33 90 03/12/19 00:30 82 28 92/49 97 03/12/19 00:26 Room Air 03/12/19 00:15 81 27 82/48 100 03/12/19 00:00 80 30 111/56 100 03/11/19 23:45 77 26 118/55 100 03/11/19 23:30 78 21 116/54 98 Room Air 03/11/19 23:30 78 21 116/54 98 03/11/19 23:15 81 28 99/54 98 03/11/19 23:15 81 28 99/54 98 03/11/19 23:00 79 30 99/55 100 Room Air 03/11/19 23:00 79 30 99/55 100 03/11/19 22:30 82 30 99/54 99 Room Air 03/11/19 22:00 101/52 03/11/19 22:00 81 32 86/53 100 Room Air 03/11/19 21:30 82 30 98/51 100 Room Air 03/11/19 21:00 80 29 123/56 100 Room Air 03/11/19 20:57 94/54 03/11/19 20:30 83 31 93/49 99 Room Air 03/11/19 20:00 Room Air 03/11/19 20:00 98.6 84 34 85/52 99 Room Air 03/11/19 20:00 87 03/11/19 19:19 83 18 100 Room Air 21 03/11/19 19:19 100 Room Air 21 03/11/19 19:00 99/52 03/11/19 19:00 80 28 99/52 97 Room Air 03/11/19 18:45 100/55 03/11/19 18:45 85 28 100/55 96 Room Air 03/11/19 18:30 82 31 92/55 97 Room Air 03/11/19 18:30 92/55 03/11/19 18:15 87 26 79/49 99 Room Air 03/11/19 18:15 79/49 03/11/19 18:00 91 32 95/49 98 Room Air 03/11/19 18:00 95/49 03/11/19 17:45 83 22 83/49 99 Room Air 03/11/19 17:45 83/49 03/11/19 17:30 97/54 03/11/19 17:30 87 34 97/54 98 Room Air 03/11/19 17:15 84/46 03/11/19 17:15 85 25 84/46 99 Room Air 03/11/19 17:00 93/49 03/11/19 17:00 87 30 93/49 98 Room Air 03/11/19 16:45 89 24 93/46 98 Room Air 03/11/19 16:30 89/50 03/11/19 16:30 82 22 89/50 100 Room Air 03/11/19 16:15 83 22 91/52 99 Room Air 03/11/19 16:00 106/54 03/11/19 16:00 Room Air 03/11/19 16:00 84 24 106/54 99 Room Air 03/11/19 16:00 82 Intake and Output 03/11/19 03/12/19 19:00 07:00 Intake Total 2586.467 ml 1860.53 ml Output Total 1645 ml 1700 ml Balance 941.467 ml 160.53 ml Free Water 260 ml 230 ml IV Total 1726.467 ml 1030.53 ml Tube Feeding 600 ml 600 ml Output Urine Total 1645 ml 1700 ml Laboratory Tests 03/12/19 03:10: White Blood Count 11.5H, Red Blood Count 3.70L, Hemoglobin 10.6L, Hematocrit 33.3L, Mean Corpuscular Volume 90, Mean Corpuscular Hemoglobin 28.7, Mean Corpuscular Hemoglobin Concent 32.0, Red Cell Distribution Width 14.3, Platelet Count 139L, Mean Platelet Volume 7.3, Neutrophils (%) (Auto) 55.6, Lymphocytes ( %) (Auto) 38.8, Monocytes (%) (Auto) 4.4, Eosinophils (%) (Auto) 0.8, Basophils (%) (Auto) 0.3, Prothrombin Time 11.4, Prothromb Time International Ratio 1.1, Activated Partial Thromboplast Time 33, Sodium Level 145, Potassium Level 3.8, Chloride Level 115H, Carbon Dioxide Level 24, Anion Gap 6, Blood Urea Nitrogen 6L, Creatinine 0.6, Estimat Glomerular Filtration Rate > 60, Glucose Level 182H , Calcium Level 7.9L, Phosphorus Level 2.2L, Magnesium Level 2.0, Total Bilirubin 0.3, Aspartate Amino Transf (AST/SGOT) 18, Alanine Aminotransferase ( ALT/SGPT) 16, Alkaline Phosphatase 80, Total Protein 6.1L, Albumin 1.7L, Globulin 4.4, Albumin/Globulin Ratio 0.4L Height (Feet): 3 Height (Inches): 6.00 Weight (Pounds): 116 General Appearance: no apparent distress Cardiovascular: normal rate Respiratory/Chest: decreased breath sounds Abdomen: soft Objective no change Gennaro Cagle MD Mar 12, 2019 15:51
--- NOTE | 2019-03-12 16:00 | NUR ---
NURSE NOTES: levophed running at 8mcg/min via right subclavian TLC. BP 99/55. Patient awake. no seizure activity during this shift.
--- NOTE | 2019-03-12 16:46 | NUR ---
CASE MANAGEMENT:REVIEW 03/12/19 SI: SEPSIS. UTI. PNA 98.9 75 28 98/50 95% ON 2L/NC WBC+11.5 H/H+10.6/33.3 IS: LEVOPHED GTT IV VANCOMYCIN Q12 IV MEROPENEM Q12 IV ERTAPENEM Q24 IVF@100/HR MIDODRINE PO TID : ICU STATUS [facility]; [facility]
--- NOTE | 2019-03-12 18:00 | NUR ---
NURSE NOTES: Patient resting in bed. On room air. No acute distress noted. No s/sx of pain at this time. Patient kept clean and dry. Patient tolerating tube feeding. HOB kept elevated.
--- NOTE | 2019-03-12 19:29 | NUR ---
HAND-OFF: Report given to SARAH Null.
--- NOTE | 2019-03-12 19:30 | NUR ---
NURSE NOTES: Received report from SARAH Cordero. Patient asleep and responsive to verbal. Patient denies any pain/discomfort at this time. O2 Sat 99% on room air. Gtube intact and running with glucerna 1.2 @ 50ml/hr. Right subclavian TLC intact, clean and running with levophed 10mcg/min. BP 98/56 on the monitor. Kept dry, clean, comfortable and HOB>30. Call light placed in easy reach. Will continue plan of care.
[2019-03-12] MEDS: Dyna-Hex 2% Top Sol 2oz TOPIC SCH (20:26)
--- NOTE | 2019-03-12 20:30 | NUR ---
NURSE NOTES: Noted BP 89/47. Increased levophed 10mcg/min to 12mcg/min. Will continue to monitor.
--- NOTE | 2019-03-12 20:59 | Cardiology Progress Note ---
Assessment/Plan Assessment/Plan 1. Hypernatremia. 2. Dehydration. 3. Azotemia. 4. Sinus tachycardia. 5. Septic shock. 6. Renal failure. 7. Bilateral amputation. 8. Dementia. 9. Peripheral vascular disease. 10. Systemic hypertension. 11. abn cardiac enzyme demand related 12. hypoalbuminemia 13. hypotension blood cx remain neg na improved need pressor for hypotension tele reviewed sinus pac pvcs am cortisol has been checked an is fine ekg noted trop trend back to normal kristy repbolus with 250 cc ns and try very slo taper off of levophed d/w rn Subjective ROS Limited/Unobtainable: Yes Objective Last 24 Hour Vital Signs Date Time Temp Pulse Resp B/P (MAP) Pulse Ox O2 Delivery O2 Flow Rate FiO2 03/12/19 20:30 89/47 03/12/19 20:30 79 25 89/47 99 Room Air 03/12/19 20:28 74 16 100 Room Air 21 03/12/19 20:28 100 Room Air 21 03/12/19 20:00 75 25 108/45 99 Room Air 03/12/19 20:00 108/45 03/12/19 20:00 Room Air 03/12/19 19:30 79 27 98/55 100 Room Air 03/12/19 19:00 98/50 03/12/19 19:00 74 26 98/50 100 Room Air 03/12/19 18:45 79 29 89/40 100 Room Air 03/12/19 18:30 103/43 03/12/19 18:30 74 25 103/43 100 Room Air 03/12/19 18:24 81 29 92/43 99 Room Air 03/12/19 18:15 79 28 82/38 100 Room Air 03/12/19 18:15 82/38 03/12/19 18:00 80 29 74/42 99 Room Air 03/12/19 18:00 74/42 03/12/19 17:30 84 28 107/44 99 Room Air 03/12/19 17:00 99/42 03/12/19 17:00 82 26 99/42 99 Room Air 03/12/19 16:45 75 26 100/48 100 Room Air 03/12/19 16:30 81 29 105/54 100 Room Air 03/12/19 16:30 105/54 03/12/19 16:15 99.6 80 25 96/47 99 Room Air 03/12/19 16:00 88 29 99/55 98 Room Air 03/12/19 16:00 98 03/12/19 16:00 99/55 03/12/19 16:00 Room Air 03/12/19 15:48 116/47 03/12/19 15:47 116/47 03/12/19 15:45 80 25 116/47 99 Room Air 03/12/19 15:30 81 28 121/53 99 Room Air 03/12/19 15:30 121/53 03/12/19 15:15 79 29 112/58 100 Room Air 03/12/19 15:00 96/46 03/12/19 15:00 81 25 96/46 99 Room Air 03/12/19 14:45 78 26 95/53 100 Room Air 03/12/19 14:30 73 25 120/61 99 Room Air 03/12/19 14:30 120/61 03/12/19 14:15 76 28 126/59 100 Room Air 03/12/19 14:00 79 29 111/62 100 Room Air 03/12/19 14:00 111/62 03/12/19 13:45 81 31 106/65 96 Room Air 03/12/19 13:30 81 28 100/59 97 Room Air 03/12/19 13:15 83 24 98/48 95 Room Air 03/12/19 13:00 92/54 03/12/19 13:00 82 28 92/54 95 Room Air 03/12/19 12:45 86 32 96/50 94 Nasal Cannula 2.0 03/12/19 12:30 82 31 91/49 95 Nasal Cannula 2.0 03/12/19 12:15 81 28 91/53 95 Nasal Cannula 2.0 03/12/19 12:00 98.9 75 21 98/50 95 Nasal Cannula 2.0 03/12/19 12:00 75 03/12/19 12:00 98/50 03/12/19 12:00 Nasal Cannula 2.0 03/12/19 11:30 80 27 94/50 97 Nasal Cannula 2.0 03/12/19 11:00 92/56 03/12/19 11:00 85 32 92/56 98 Nasal Cannula 2.0 03/12/19 10:45 80 26 112/46 97 Nasal Cannula 2.0 03/12/19 10:30 79 27 102/56 98 Nasal Cannula 2.0 03/12/19 10:30 102/56 03/12/19 10:15 78 25 105/52 98 Nasal Cannula 2.0 03/12/19 10:00 101/43 03/12/19 10:00 86 34 101/43 95 Nasal Cannula 2.0 03/12/19 09:45 82 25 117/60 96 Nasal Cannula 2.0 03/12/19 09:30 110/56 03/12/19 09:30 81 28 110/56 97 Nasal Cannula 2.0 03/12/19 09:19 96/52 03/12/19 09:18 96/52 03/12/19 09:15 84 31 96/52 97 Nasal Cannula 2.0 03/12/19 09:00 82 30 116/59 97 Room Air 03/12/19 09:00 106/59 03/12/19 08:45 83 34 118/56 95 Room Air 03/12/19 08:30 82 29 125/55 98 Room Air 03/12/19 08:30 125/55 03/12/19 08:20 88 34 106/53 99 Room Air 03/12/19 08:15 92 34 78/33 95 Room Air 03/12/19 08:15 78/33 03/12/19 08:11 69 16 100 Room Air 21 03/12/19 08:11 100 Room Air 21 03/12/19 08:00 89 03/12/19 08:00 99.8 85 28 90/52 100 Room Air 03/12/19 08:00 Room Air 03/12/19 08:00 90/52 03/12/19 07:45 84 28 117/53 99 Room Air 03/12/19 07:30 88 25 109/91 96 Room Air 03/12/19 07:30 109/91 03/12/19 07:15 99 27 79/57 97 Room Air 03/12/19 07:15 79/57 03/12/19 07:00 87 25 96/73 96 Room Air 03/12/19 06:30 80 30 102/54 96 Room Air 03/12/19 06:00 82 30 109/54 96 Room Air 03/12/19 06:00 109/54 03/12/19 05:30 83 29 107/56 98 Room Air 03/12/19 05:00 83 27 103/54 99 Room Air 03/12/19 05:00 107/56 03/12/19 04:38 83 03/12/19 04:30 82 27 98/55 98 Room Air 03/12/19 04:00 99.4 80 27 127/51 98 Room Air 03/12/19 04:00 Room Air 03/12/19 03:00 127/55 03/12/19 03:00 77 27 128/55 97 Room Air 03/12/19 02:30 81 27 100/55 97 Room Air 03/12/19 02:00 79 27 93/47 97 Room Air 03/12/19 02:00 105/54 03/12/19 01:30 79 25 125/59 98 Room Air 03/12/19 01:00 77 27 112/51 99 Room Air 03/12/19 00:33 90 03/12/19 00:30 82 28 92/49 97 03/12/19 00:26 Room Air 03/12/19 00:15 81 27 82/48 100 03/12/19 00:00 80 30 111/56 100 03/11/19 23:45 77 26 118/55 100 03/11/19 23:30 78 21 116/54 98 Room Air 03/11/19 23:30 78 21 116/54 98 03/11/19 23:15 81 28 99/54 98 03/11/19 23:15 81 28 99/54 98 03/11/19 23:00 79 30 99/55 100 Room Air 03/11/19 23:00 79 30 99/55 100 03/11/19 22:30 82 30 99/54 99 Room Air 03/11/19 22:00 101/52 03/11/19 22:00 81 32 86/53 100 Room Air 03/11/19 21:30 82 30 98/51 100 Room Air 03/11/19 21:00 80 29 123/56 100 Room Air General Appearance: no apparent distress, isolation precautions Neck: supple Cardiovascular: normal rate Respiratory/Chest: lungs clear Abdomen: normal bowel sounds, non tender, soft Extremities: no swelling Intake and Output 03/11/19 03/12/19 19:00 07:00 Intake Total 2586.467 ml 1860.53 ml Output Total 1645 ml 1700 ml Balance 941.467 ml 160.53 ml Free Water 260 ml 230 ml IV Total 1726.467 ml 1030.53 ml Tube Feeding 600 ml 600 ml Output Urine Total 1645 ml 1700 ml Laboratory Tests Test 03/12/19 03:10 White Blood Count 11.5 K/UL (4.8-10.8) H Red Blood Count 3.70 M/UL (4.70-6.10) L Hemoglobin 10.6 G/DL (14.2-18.0) L Hematocrit 33.3 % (42.0-52.0) L Mean Corpuscular Volume 90 FL (80-99) Mean Corpuscular Hemoglobin 28.7 PG (27.0-31.0) Mean Corpuscular Hemoglobin Concent 32.0 G/DL (32.0-36.0) Red Cell Distribution Width 14.3 % (11.6-14.8) Platelet Count 139 K/UL (150-450) L Mean Platelet Volume 7.3 FL (6.5-10.1) Neutrophils (%) (Auto) 55.6 % (45.0-75.0) Lymphocytes (%) (Auto) 38.8 % (20.0-45.0) Monocytes (%) (Auto) 4.4 % (1.0-10.0) Eosinophils (%) (Auto) 0.8 % (0.0-3.0) Basophils (%) (Auto) 0.3 % (0.0-2.0) Prothrombin Time 11.4 SEC (9.30-11.50) Prothromb Time International Ratio 1.1 (0.9-1.1) Activated Partial Thromboplast Time 33 SEC (23-33) Sodium Level 145 MMOL/L (136-145) Potassium Level 3.8 MMOL/L (3.5-5.1) Chloride Level 115 MMOL/L (98-107) H Carbon Dioxide Level 24 MMOL/L (21-32) Anion Gap 6 mmol/L (5-15) Blood Urea Nitrogen 6 mg/dL (7-18) L Creatinine 0.6 MG/DL (0.55-1.30) Estimat Glomerular Filtration Rate > 60 mL/min (>60) Glucose Level 182 MG/DL (74-106) H Calcium Level 7.9 MG/DL (8.5-10.1) L Phosphorus Level 2.2 MG/DL (2.5-4.9) L Magnesium Level 2.0 MG/DL (1.8-2.4) Total Bilirubin 0.3 MG/DL (0.2-1.0) Aspartate Amino Transf (AST/SGOT) 18 U/L (15-37) Alanine Aminotransferase (ALT/SGPT) 16 U/L (12-78) Alkaline Phosphatase 80 U/L (46-116) Total Protein 6.1 G/DL (6.4-8.2) L Albumin 1.7 G/DL (3.4-5.0) L Globulin 4.4 g/dL Albumin/Globulin Ratio 0.4 (1.0-2.7) L Microbiology Date/Time Source Procedure Growth Status 03/10/19 04:00 Sputum Induced Gram Stain - Final Resulted 03/10/19 04:00 Sputum Culture - Preliminary Staphylococcus Aureus Ramya Albicans Usual Respiratory Bere Resulted 03/10/19 18:00 Leg Left Gram Stain - Final Resulted 03/10/19 18:00 Leg Left Wound Culture - Preliminary NO GROWTH AFTER 24 HOURS Resulted Pradeep Wen MD Mar 12, 2019 20:59
--- NOTE | 2019-03-12 21:00 | NUR ---
NURSE NOTES: Seen by Dr. Wen and assessed. Bolus 250ml is ordered and titrate levophed 1ml/q15min to keep SBP>90
--- NOTE | 2019-03-12 22:20 | NUR ---
NURSE NOTES: Repositioned patient. Oral care provided.
[2019-03-13] VITALS (56 sets, daily range): BP systolic 63–112; BP diastolic 41–76
--- NOTE | 2019-03-13 | NUR ---
NURSE NOTES: Repositioned patient. BS checked and insulin given as ordered. Will continue plan of care.
--- NOTE | 2019-03-13 01:00 | NUR ---
NURSE NOTES: Blood collected by Kate from Lab for Vanco trough.
[2019-03-13] MEDS: Meropenem 1 GM in NS 55 ML IVPB SCH ×2 (01:20→15:53)
[2019-03-13] MEDS: Vancomycin 750mg/D5W 275ml IVPB SCH ×2 (02:22)
--- NOTE | 2019-03-13 02:22 | NUR ---
NURSE NOTES: Talked with Makenna/Pharmacy regarding vanco trought 11.5. She said okay to give vanco 750mg. Started vanco 750mg. Will continue plan of care.
--- NOTE | 2019-03-13 03:32 | NUR ---
NURSE NOTES: Bed bath and oral care given.
--- NOTE | 2019-03-13 03:50 | NUR ---
NURSE NOTES: Collected blood by Kate from lab for morning lab.
[2019-03-13 05:15] LABS: BASOPHILS % (AUTO) 0.5 % (0.0-2.0); EOSINOPHILS % (AUTO) 1.3 % (0.0-3.0); HEMATOCRIT 32.3 % (42.0-52.0); HEMOGLOBIN 10.4 G/DL (14.2-18.0); LYMPHOCYTES % (AUTO) 40.2 % (20.0-45.0); MEAN CORPUSCULAR VOLUME 90 FL (80-99); PLATELET COUNT 205 K/UL (150-450); RED BLOOD COUNT 3.58 M/UL (4.70-6.10); RED CELL DISTRIBUTION WIDTH 14.5 % (11.6-14.8)
--- NOTE | 2019-03-13 05:20 | NUR ---
NURSE NOTES: Patient is on levophed 36ml/hr. BP 97/49 on the monitor. Patient awake and responsive to verbal and tactile stimuli. No distress/SOB noted. Will continue plan of care.
[2019-03-13 05:26] LABS: ALANINE AMINOTRANSFERASE 18 U/L (12-78); ALBUMIN 1.6 G/DL (3.4-5.0); ALBUMIN/GLOBULIN RATIO 0.3 (1.0-2.7); ALKALINE PHOSPHATASE 81 U/L (46-116); ANION GAP 9 mmol/L (5-15); ASPARTATE AMINO TRANSFERASE 23 U/L (15-37); BILIRUBIN,TOTAL 0.3 MG/DL (0.2-1.0); BLOOD UREA NITROGEN 8 mg/dL (7-18); CALCIUM 7.8 MG/DL (8.5-10.1); CARBON DIOXIDE 23 MMOL/L (21-32); CHLORIDE 108 MMOL/L (98-107); CREATININE 0.5 MG/DL (0.55-1.30); PHOSPHORUS 2.5 MG/DL (2.5-4.9); POTASSIUM 4.4 MMOL/L (3.5-5.1); SODIUM 140 MMOL/L (136-145)
[2019-03-13] MEDS: NovoLOG Insulin Flexpen SUBQ SCH ×4 (05:30→23:40)
--- NOTE | 2019-03-13 06:02 | NUR ---
NURSE NOTES: Repositioned patient and oral care provided.
--- NOTE | 2019-03-13 07:27 | NUR ---
HAND-OFF: Report given to SARAH Patricia. Endorsed plan of care.
--- NOTE | 2019-03-13 09:30 | NUR ---
CASE MANAGEMENT:REVIEW 03/13/19 SI: SEPSIS. UTI. PNA 99.8 81 30 98/50 99% ON RA WBC+12.0 ESR+100 CA-7.8 ALB-1.6 IS: LEVOPHED GTT IV VANCOMYCIN Q12 IV MEROPENEM Q12 IVF@100/HR MIDODRINE PO TID : ICU STATUS [facility]; [facility]
[2019-03-13] MEDS: Pantoprazole Inj IVP SCH ×2 (09:39→20:46)
[2019-03-13] MEDS: Aspirin Baby 81mg ORAL SCH (09:40)
--- NOTE | 2019-03-13 09:40 | NUR ---
NURSE NOTES: Dr. Dickson at the bedside assessing patient, no verbal orders given at this time after review patients chart, will continue to monitor.
[2019-03-13] MEDS: Heparin 5000 units/ml inj SUBQ SCH ×2 (09:42→20:47)
--- NOTE | 2019-03-13 09:54 | Pulmonolgy Critical Care Note ---
Critical Care - Asmt/Plan Problems: (1) Nosocomial pneumonia (2) Severe sepsis (3) Renal failure (ARF), acute on chronic (4) CVA (cerebral vascular accident) (5) S/P AKA (above knee amputation) bilateral (6) Decubitus skin ulcer (7) Pleural effusion on left (8) Alzheimer's dementia (9) Feeding by G-tube Respiratory: monitor respiratory rate, adjust FIO2, CXR Cardiac: continue pressors, continue to monitor HR/BP Renal: F/U I&O, keep IV fluid Infectious Disease: check cultures, continue antibiotics Gastrointestinal: continue feedings/current rate Endocrine: monitor blood sugar, continue sliding scale insulin Hematologic: monitor H/H, transfuse if hgb<8.5 Neurologic: PRN Ativan, keep patient comfortable Disposition: keep in ICU Notes Reviewed: cardio Discussed with: nurses, consultants, pillowcase turnergarage manager - Objective Last 24 Hour Vital Signs Date Time Temp Pulse Resp B/P (MAP) Pulse Ox O2 Delivery O2 Flow Rate FiO2 03/13/19 08:30 81 30 88/47 100 Room Air 03/13/19 08:00 96 03/13/19 08:00 99.8 81 26 98/50 99 Room Air 03/13/19 07:30 81 28 101/53 100 Room Air 03/13/19 07:03 99 Room Air 21 03/13/19 07:03 91 28 99 Room Air 21 03/13/19 07:00 93 29 85/49 98 Room Air 03/13/19 07:00 85/49 03/13/19 06:45 93/53 03/13/19 06:30 91 29 106/51 99 Room Air 03/13/19 06:15 106/51 03/13/19 06:00 91/51 03/13/19 06:00 82 27 99/47 100 Room Air 03/13/19 05:30 81 29 97/49 99 Room Air 03/13/19 05:23 97/55 03/13/19 05:15 97/49 03/13/19 05:00 92/50 03/13/19 05:00 79 29 92/50 100 Room Air 03/13/19 04:30 81 31 77/46 98 Room Air 03/13/19 04:30 110/51 03/13/19 04:00 98.7 77 30 103/51 100 Room Air 10/17/19 04:00 85 03/13/19 04:00 Room Air 03/13/19 04:00 103/51 03/13/19 03:30 79 34 95/51 98 Room Air 03/13/19 03:30 91/41 03/13/19 03:00 79 27 93/67 99 Room Air 03/13/19 02:30 105/49 03/13/19 02:30 80 27 91/49 99 Room Air 03/13/19 02:00 109/42 03/13/19 02:00 74 29 110/65 99 Room Air 03/13/19 01:45 77 28 106/48 99 Room Air 03/13/19 01:30 81 31 88/46 98 Room Air 03/13/19 01:30 106/48 03/13/19 01:15 88/46 03/13/19 01:15 74 29 90/47 99 Room Air 03/13/19 01:13 73 26 103/48 99 Room Air 03/13/19 01:00 92 30 88/54 98 Room Air 03/13/19 01:00 103/48 03/13/19 00:45 99 30 109/76 99 Room Air 03/13/19 00:30 91 27 96/58 99 Room Air 03/13/19 00:30 109/76 03/13/19 00:15 86 28 103/54 99 Room Air 03/13/19 00:00 79 03/13/19 00:00 103/54 03/13/19 00:00 Room Air 03/13/19 00:00 98.2 88 27 109/53 98 Room Air 03/12/19 23:45 77 28 102/60 100 Room Air 03/12/19 23:45 109/53 03/12/19 23:30 77 27 97/48 100 Room Air 03/12/19 23:30 97/48 03/12/19 23:15 72 26 107/50 100 Room Air 03/12/19 23:04 98/48 03/12/19 23:00 75 30 98/48 100 Room Air 03/12/19 22:30 100/35 03/12/19 22:15 85/45 03/12/19 22:15 80 30 85/45 100 Room Air 03/12/19 22:13 78 29 93/41 100 Room Air 03/12/19 22:00 78/40 03/12/19 22:00 81 33 78/40 99 Room Air 03/12/19 21:45 98/47 03/12/19 21:45 74 27 98/47 100 Room Air 03/12/19 21:30 114/44 03/12/19 21:30 73 25 114/44 100 Room Air 03/12/19 21:00 78 22 90/47 98 Room Air 03/12/19 21:00 90/47 03/12/19 20:30 89/47 03/12/19 20:30 79 25 89/47 99 Room Air 03/12/19 20:28 74 16 100 Room Air 21 03/12/19 20:28 100 Room Air 21 03/12/19 20:00 82 03/12/19 20:00 98.8 75 25 108/45 99 Room Air 03/12/19 20:00 108/45 03/12/19 20:00 Room Air 03/12/19 19:30 79 27 98/55 100 Room Air 03/12/19 19:00 98/50 03/12/19 19:00 74 26 98/50 100 Room Air 03/12/19 18:45 79 29 89/40 100 Room Air 03/12/19 18:30 103/43 03/12/19 18:30 74 25 103/43 100 Room Air 03/12/19 18:24 81 29 92/43 99 Room Air 03/12/19 18:15 79 28 82/38 100 Room Air 03/12/19 18:15 82/38 03/12/19 18:00 80 29 74/42 99 Room Air 03/12/19 18:00 74/42 03/12/19 17:30 84 28 107/44 99 Room Air 03/12/19 17:00 99/42 03/12/19 17:00 82 26 99/42 99 Room Air 03/12/19 16:45 75 26 100/48 100 Room Air 03/12/19 16:30 81 29 105/54 100 Room Air 03/12/19 16:30 105/54 03/12/19 16:15 99.6 80 25 96/47 99 Room Air 03/12/19 16:00 88 29 99/55 98 Room Air 03/12/19 16:00 98 03/12/19 16:00 99/55 03/12/19 16:00 Room Air 03/12/19 15:48 116/47 03/12/19 15:47 116/47 03/12/19 15:45 80 25 116/47 99 Room Air 03/12/19 15:30 81 28 121/53 99 Room Air 03/12/19 15:30 121/53 03/12/19 15:15 79 29 112/58 100 Room Air 03/12/19 15:00 96/46 03/12/19 15:00 81 25 96/46 99 Room Air 03/12/19 14:45 78 26 95/53 100 Room Air 03/12/19 14:30 73 25 120/61 99 Room Air 03/12/19 14:30 120/61 03/12/19 14:15 76 28 126/59 100 Room Air 03/12/19 14:00 79 29 111/62 100 Room Air 03/12/19 14:00 111/62 03/12/19 13:45 81 31 106/65 96 Room Air 03/12/19 13:30 81 28 100/59 97 Room Air 03/12/19 13:15 83 24 98/48 95 Room Air 03/12/19 13:00 92/54 03/12/19 13:00 82 28 92/54 95 Room Air 03/12/19 12:45 86 32 96/50 94 Nasal Cannula 2.0 03/12/19 12:30 82 31 91/49 95 Nasal Cannula 2.0 03/12/19 12:15 81 28 91/53 95 Nasal Cannula 2.0 03/12/19 12:00 98.9 75 21 98/50 95 Nasal Cannula 2.0 03/12/19 12:00 75 03/12/19 12:00 98/50 03/12/19 12:00 Nasal Cannula 2.0 03/12/19 11:30 80 27 94/50 97 Nasal Cannula 2.0 03/12/19 11:00 92/56 03/12/19 11:00 85 32 92/56 98 Nasal Cannula 2.0 03/12/19 10:45 80 26 112/46 97 Nasal Cannula 2.0 03/12/19 10:30 79 27 102/56 98 Nasal Cannula 2.0 03/12/19 10:30 102/56 03/12/19 10:15 78 25 105/52 98 Nasal Cannula 2.0 03/12/19 10:00 101/43 03/12/19 10:00 86 34 101/43 95 Nasal Cannula 2.0 Status: awake Condition: critical, improving HEENT: atraumatic Lungs: clear Heart: HR/BP stable Abdomen: non-tender, feeding tube Extremities: edema Micro: Microbiology Date/Time Source Procedure Growth Status 03/11/19 13:10 Blood Blood Culture - Preliminary NO GROWTH AFTER 24 HOURS Resulted 03/11/19 11:07 Blood Blood Culture - Preliminary NO GROWTH AFTER 24 HOURS Resulted 03/10/19 18:00 Leg Left Gram Stain - Final Resulted 03/10/19 18:00 Leg Left Wound Culture - Preliminary NO GROWTH AFTER 24 HOURS Resulted Accucheck: 118 Critical Care - Subjective ROS Limited/Unobtainable: Yes ICU Day: 6 Condition: critical, improving EKG Rhythm: Sinus Rhythm FI02: 21 Sputum Amount: None Tube Feeding Amount: 50 I&O: Intake and Output 03/12/19 03/13/19 18:59 06:59 Intake Total 2155.100 ml 1131.06 ml Output Total 1660 ml 1900 ml Balance 495.100 ml -768.94 ml Free Water 260 ml IV Total 1295.100 ml 531.06 ml Tube Feeding 600 ml 600 ml Output Urine Total 1660 ml 1900 ml CXR: no change Labs: Laboratory Tests Test 03/13/19 01:00 03/13/19 03:35 Vancomycin Level Trough 11.5 ug/mL (5.0-12.0) White Blood Count 12.0 K/UL (4.8-10.8) H Red Blood Count 3.58 M/UL (4.70-6.10) L Hemoglobin 10.4 G/DL (14.2-18.0) L Hematocrit 32.3 % (42.0-52.0) L Mean Corpuscular Volume 90 FL (80-99) Mean Corpuscular Hemoglobin 28.9 PG (27.0-31.0) Mean Corpuscular Hemoglobin Concent 32.0 G/DL (32.0-36.0) Red Cell Distribution Width 14.5 % (11.6-14.8) Platelet Count 205 K/UL (150-450) Mean Platelet Volume 7.3 FL (6.5-10.1) Neutrophils (%) (Auto) 53.0 % (45.0-75.0) Lymphocytes (%) (Auto) 40.2 % (20.0-45.0) Monocytes (%) (Auto) 5.0 % (1.0-10.0) Eosinophils (%) (Auto) 1.3 % (0.0-3.0) Basophils (%) (Auto) 0.5 % (0.0-2.0) Erythrocyte Sedimentation Rate 100 MM/HR (0-20) H Sodium Level 140 MMOL/L (136-145) Potassium Level 4.4 MMOL/L (3.5-5.1) Chloride Level 108 MMOL/L (98-107) H Carbon Dioxide Level 23 MMOL/L (21-32) Anion Gap 9 mmol/L (5-15) Blood Urea Nitrogen 8 mg/dL (7-18) Creatinine 0.5 MG/DL (0.55-1.30) L Estimat Glomerular Filtration Rate > 60 mL/min (>60) Glucose Level 164 MG/DL (74-106) H Calcium Level 7.8 MG/DL (8.5-10.1) L Phosphorus Level 2.5 MG/DL (2.5-4.9) Magnesium Level 1.9 MG/DL (1.8-2.4) Total Bilirubin 0.3 MG/DL (0.2-1.0) Aspartate Amino Transf (AST/SGOT) 23 U/L (15-37) Alanine Aminotransferase (ALT/SGPT) 18 U/L (12-78) Alkaline Phosphatase 81 U/L (46-116) C-Reactive Protein, Quantitative 7.0 mg/dL (0.00-0.90) H Total Protein 6.2 G/DL (6.4-8.2) L Albumin 1.6 G/DL (3.4-5.0) L Globulin 4.6 g/dL Albumin/Globulin Ratio 0.3 (1.0-2.7) L Jaylin Dickson MD Mar 13, 2019 09:54
[2019-03-13] MEDS ORDERED: Vancomycin 750mg/D5W 275ml IVPB SCH ×2 (10:00)
[2019-03-13] MEDS: Vancomycin 1 GM in NS 275 ML IVPB SCH ×2 (10:43→21:39)
--- NOTE | 2019-03-13 11:33 | NUR ---
NURSE NOTES: Dr. Connolly called to inform of positive blood culture, gram positive cocci in clusters in one bottle, patient Temperature is 99.8 with WBC count of 12.0, currently received one gram of vancomycin, awaiting for call back.
--- NOTE | 2019-03-13 11:42 | Infectious Diseases Prog Note ---
Assessment/Plan Assessment/Plan Assessment: Septic shock- likely 2ry to UTI and PNA Gram positive bacteremia- r/o contaminant vs real -03/08 CXR: Mildly worsening patchy consolidation throughout the left upper and lower lungs compared to the prior exam, concerning for pneumonia. Persistent mild elevation of the left hemidiaphragm. Cannot exclude small layering left pleural effusion. -u/a wbc tnct, nti neg, leuk +3; ucx >100k P. mirabilis (S Zosyn, Ceftriaxone ; R Cipro) -03/07 Bcx Neg; 03/11 05/31 GPC clusters -sp cx MRSA, christine albicans -CXR: There is volume loss at the left lung base again noted unchanged. Left hemidiaphragm is elevated. -2d Echo: no vegetations Low grade fever, SP Leukocytosis, recurrent, increased L stump ulcer -wound cx NTD JESUS, SP hx of UTI 11/2018, sp Rx --u/a wbc tnct, nit+, leuk +3; ucx >100k P. 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 Will continue to follow along with you. Discussed with RN Subjective Allergies: Coded Allergies: No Known Allergies (Unverified , 03/07/19) Subjective afebrile >72hrs mild leukcoytosis incrased levophed at 11 bacteremic Objective Vital Signs Last 24 Hour Vital Signs Date Time Temp Pulse Resp B/P (MAP) Pulse Ox O2 Delivery O2 Flow Rate FiO2 03/13/19 11:00 81 29 98/53 100 Room Air 03/13/19 10:30 79 30 98/50 100 Room Air 03/13/19 10:00 82 29 87/66 99 Room Air 03/13/19 09:30 78 30 93/48 100 Room Air 03/13/19 09:00 81 28 99/60 99 Room Air 03/13/19 08:30 81 30 88/47 100 Room Air 03/13/19 08:00 96 03/13/19 08:00 Room Air 03/13/19 08:00 99.8 81 26 98/50 99 Room Air 03/13/19 07:30 81 28 101/53 100 Room Air 03/13/19 07:03 99 Room Air 21 03/13/19 07:03 91 28 99 Room Air 21 03/13/19 07:00 93 29 85/49 98 Room Air 03/13/19 07:00 85/49 03/13/19 06:45 93/53 03/13/19 06:30 91 29 106/51 99 Room Air 03/13/19 06:15 106/51 03/13/19 06:00 91/51 03/13/19 06:00 82 27 99/47 100 Room Air 03/13/19 05:30 81 29 97/49 99 Room Air 03/13/19 05:23 97/55 03/13/19 05:15 97/49 03/13/19 05:00 92/50 03/13/19 05:00 79 29 92/50 100 Room Air 03/13/19 04:30 81 31 77/46 98 Room Air 03/13/19 04:30 110/51 03/13/19 04:00 98.7 77 30 103/51 100 Room Air 03/13/19 04:00 85 03/13/19 04:00 Room Air 03/13/19 04:00 103/51 03/13/19 03:30 79 34 95/51 98 Room Air 03/13/19 03:30 91/41 03/13/19 03:00 79 27 93/67 99 Room Air 03/13/19 02:30 105/49 03/13/19 02:30 80 27 91/49 99 Room Air 03/13/19 02:00 109/42 03/13/19 02:00 74 29 110/65 99 Room Air 03/13/19 01:45 77 28 106/48 99 Room Air 03/13/19 01:30 81 31 88/46 98 Room Air 03/13/19 01:30 106/48 03/13/19 01:15 88/46 03/13/19 01:15 74 29 90/47 99 Room Air 03/13/19 01:13 73 26 103/48 99 Room Air 03/13/19 01:00 92 30 88/54 98 Room Air 03/13/19 01:00 103/48 03/13/19 00:45 99 30 109/76 99 Room Air 03/13/19 00:30 91 27 96/58 99 Room Air 03/13/19 00:30 109/76 03/13/19 00:15 86 28 103/54 99 Room Air 03/13/19 00:00 79 03/13/19 00:00 103/54 03/13/19 00:00 Room Air 03/13/19 00:00 98.2 88 27 109/53 98 Room Air 03/12/19 23:45 77 28 102/60 100 Room Air 03/12/19 23:45 109/53 03/12/19 23:30 77 27 97/48 100 Room Air 03/12/19 23:30 97/48 03/12/19 23:15 72 26 107/50 100 Room Air 03/12/19 23:04 98/48 03/12/19 23:00 75 30 98/48 100 Room Air 03/12/19 22:30 100/35 03/12/19 22:15 85/45 03/12/19 22:15 80 30 85/45 100 Room Air 03/12/19 22:13 78 29 93/41 100 Room Air 03/12/19 22:00 78/40 03/12/19 22:00 81 33 78/40 99 Room Air 03/12/19 21:45 98/47 03/12/19 21:45 74 27 98/47 100 Room Air 03/12/19 21:30 114/44 03/12/19 21:30 73 25 114/44 100 Room Air 03/12/19 21:00 78 22 90/47 98 Room Air 03/12/19 21:00 90/47 03/12/19 20:30 89/47 03/12/19 20:30 79 25 89/47 99 Room Air 03/12/19 20:28 74 16 100 Room Air 21 03/12/19 20:28 100 Room Air 21 03/12/19 20:00 82 03/12/19 20:00 98.8 75 25 108/45 99 Room Air 03/12/19 20:00 108/45 03/12/19 20:00 Room Air 03/12/19 19:30 79 27 98/55 100 Room Air 03/12/19 19:00 98/50 03/12/19 19:00 74 26 98/50 100 Room Air 03/12/19 18:45 79 29 89/40 100 Room Air 03/12/19 18:30 103/43 03/12/19 18:30 74 25 103/43 100 Room Air 03/12/19 18:24 81 29 92/43 99 Room Air 03/12/19 18:15 79 28 82/38 100 Room Air 03/12/19 18:15 82/38 03/12/19 18:00 80 29 74/42 99 Room Air 03/12/19 18:00 74/42 03/12/19 17:30 84 28 107/44 99 Room Air 03/12/19 17:00 99/42 03/12/19 17:00 82 26 99/42 99 Room Air 03/12/19 16:45 75 26 100/48 100 Room Air 03/12/19 16:30 81 29 105/54 100 Room Air 03/12/19 16:30 105/54 03/12/19 16:15 99.6 80 25 96/47 99 Room Air 03/12/19 16:00 88 29 99/55 98 Room Air 03/12/19 16:00 98 03/12/19 16:00 99/55 03/12/19 16:00 Room Air 03/12/19 15:48 116/47 03/12/19 15:47 116/47 03/12/19 15:45 80 25 116/47 99 Room Air 03/12/19 15:30 81 28 121/53 99 Room Air 03/12/19 15:30 121/53 03/12/19 15:15 79 29 112/58 100 Room Air 03/12/19 15:00 96/46 03/12/19 15:00 81 25 96/46 99 Room Air 03/12/19 14:45 78 26 95/53 100 Room Air 03/12/19 14:30 73 25 120/61 99 Room Air 03/12/19 14:30 120/61 03/12/19 14:15 76 28 126/59 100 Room Air 03/12/19 14:00 79 29 111/62 100 Room Air 03/12/19 14:00 111/62 03/12/19 13:45 81 31 106/65 96 Room Air 03/12/19 13:30 81 28 100/59 97 Room Air 03/12/19 13:15 83 24 98/48 95 Room Air 03/12/19 13:00 92/54 03/12/19 13:00 82 28 92/54 95 Room Air 03/12/19 12:45 86 32 96/50 94 Nasal Cannula 2.0 03/12/19 12:30 82 31 91/49 95 Nasal Cannula 2.0 03/12/19 12:15 81 28 91/53 95 Nasal Cannula 2.0 03/12/19 12:00 98.9 75 21 98/50 95 Nasal Cannula 2.0 03/12/19 12:00 75 03/12/19 12:00 98/50 03/12/19 12:00 Nasal Cannula 2.0 Height (Feet): 3 Height (Inches): 6.00 Weight (Pounds): 117 Objective General Appearance: moderate distress - Appears diaphoretic and is tachycardic Head: normocephalic, atraumatic Eyes: bilateral eye PERRL, bilateral eye EOMI ENT: dry mucus membranes Neck: supple Respiratory: no retraction, no accessory muscle use, crackles - Bilaterally Cardiovascular: tachycardia Gastrointestinal: non tender, soft, other - Feeding tube in place Musculoskeletal: other - Bilateral [id number] amputations does not follow commands, right upper extremity paralysis Neurologic: other - Patient has eyes open however does not follow commands is not verbal Psychiatric: normal inspection Skin: other - Scars formations bilateral femoral area Microbiology Date/Time Source Procedure Growth Status 03/11/19 13:10 Blood Blood Culture - Preliminary NO GROWTH AFTER 24 HOURS Resulted 03/11/19 11:07 Blood Blood Culture - Preliminary Resulted 03/10/19 18:00 Leg Left Gram Stain - Final Resulted 03/10/19 18:00 Leg Left Wound Culture - Preliminary NO GROWTH AFTER 48 HOURS Resulted Laboratory Tests Test 03/13/19 01:00 03/13/19 03:35 Vancomycin Level Trough 11.5 ug/mL (5.0-12.0) White Blood Count 12.0 K/UL (4.8-10.8) H Red Blood Count 3.58 M/UL (4.70-6.10) L Hemoglobin 10.4 G/DL (14.2-18.0) L Hematocrit 32.3 % (42.0-52.0) L Mean Corpuscular Volume 90 FL (80-99) Mean Corpuscular Hemoglobin 28.9 PG (27.0-31.0) Mean Corpuscular Hemoglobin Concent 32.0 G/DL (32.0-36.0) Red Cell Distribution Width 14.5 % (11.6-14.8) Platelet Count 205 K/UL (150-450) Mean Platelet Volume 7.3 FL (6.5-10.1) Neutrophils (%) (Auto) 53.0 % (45.0-75.0) Lymphocytes (%) (Auto) 40.2 % (20.0-45.0) Monocytes (%) (Auto) 5.0 % (1.0-10.0) Eosinophils (%) (Auto) 1.3 % (0.0-3.0) Basophils (%) (Auto) 0.5 % (0.0-2.0) Erythrocyte Sedimentation Rate 100 MM/HR (0-20) H Sodium Level 140 MMOL/L (136-145) Potassium Level 4.4 MMOL/L (3.5-5.1) Chloride Level 108 MMOL/L (98-107) H Carbon Dioxide Level 23 MMOL/L (21-32) Anion Gap 9 mmol/L (5-15) Blood Urea Nitrogen 8 mg/dL (7-18) Creatinine 0.5 MG/DL (0.55-1.30) L Estimat Glomerular Filtration Rate > 60 mL/min (>60) Glucose Level 164 MG/DL (74-106) H Calcium Level 7.8 MG/DL (8.5-10.1) L Phosphorus Level 2.5 MG/DL (2.5-4.9) Magnesium Level 1.9 MG/DL (1.8-2.4) Total Bilirubin 0.3 MG/DL (0.2-1.0) Aspartate Amino Transf (AST/SGOT) 23 U/L (15-37) Alanine Aminotransferase (ALT/SGPT) 18 U/L (12-78) Alkaline Phosphatase 81 U/L (46-116) C-Reactive Protein, Quantitative 7.0 mg/dL (0.00-0.90) H Total Protein 6.2 G/DL (6.4-8.2) L Albumin 1.6 G/DL (3.4-5.0) L Globulin 4.6 g/dL Albumin/Globulin Ratio 0.3 (1.0-2.7) L Current Medications Medications (Trade) Dose Ordered Sig/Jennifer Route PRN Reason Start Time Stop Time Status Last Admin Dose Admin Acetaminophen (Tylenol) 650 mg Q4H PRN ORAL fever 03/07/19 11:30 04/06/19 07:29 03/09/19 08:10 Aspirin (ASA) 81 mg DAILY ORAL 03/09/19 09:00 04/08/19 08:59 03/13/19 09:40 Chlorhexidine Gluconate (Rani-Hex 2%) 1 applic DAILY@2000 TOPIC 03/07/19 20:00 04/06/19 19:59 03/12/19 20:26 Dextrose (Dextrose 50%) 25 ml Q30M PRN IV Hypoglycemia 03/07/19 15:15 04/06/19 15:14 Dextrose (Dextrose 50%) 50 ml Q30M PRN IV Hypoglycemia 03/07/19 15:15 04/06/19 15:14 Heparin Sodium (Porcine) (Heparin 5000 units/ml) 5,000 units EVERY 12 HOURS SUBQ 03/07/19 09:00 04/06/19 08:59 03/13/19 09:42 Insulin Aspart (NovoLOG) Q6HR SUBQ 03/07/19 15:15 04/06/19 15:14 03/13/19 05:30 Lorazepam (Ativan 2mg/ml 1ml) 2 mg Q4H PRN IV For Anxiety/seizure 03/11/19 16:30 03/18/19 16:29 Meropenem 1 gm/ Sodium Chloride 55 ml @ 110 mls/hr Q12HR@0200,1400 IVPB 03/11/19 14:00 03/16/19 13:59 03/13/19 01:20 Midodrine (Pro-Amatine) 5 mg THREE TIMES A DAY ORAL 03/10/19 13:00 04/09/19 12:59 03/13/19 09:40 Morphine Sulfate (Morphine Sulfate) 2 mg Q4H PRN IVP Severe Pain (Pain Scale 7-10) 03/07/19 09:00 03/14/19 08:59 Norepinephrine Bitartrate 4 mg/ Dextrose 254 ml @ 0 mls/hr Q24H IV 03/09/19 19:30 04/08/19 19:29 03/13/19 05:23 Ondansetron HCl (Zofran) 4 mg Q6H PRN IVP Nausea & Vomiting 03/07/19 09:00 04/06/19 08:59 Pantoprazole (Protonix) 40 mg Q12HR IVP 03/07/19 21:00 04/06/19 08:59 03/13/19 09:39 Polyethylene Glycol (Miralax) 17 gm DAILYPRN PRN ORAL Constipation 03/08/19 07:30 04/06/19 07:29 Quetiapine Fumarate (SEROquel) 12.5 mg BID ORAL 03/07/19 09:00 04/06/19 08:59 03/13/19 09:39 Vancomycin HCl (Vanco rx to dose) 1 ea DAILY PRN MISC VANCOMYCIN 03/07/19 10:30 04/06/19 10:29 Vancomycin HCl 1 gm/Sodium Chloride 275 ml @ 183.708 mls/hr Q12H IVPB 03/13/19 10:00 03/18/19 09:59 03/13/19 10:43 Deepti Connolly M.D. Mar 13, 2019 11:42
--- NOTE | 2019-03-13 13:21 | NUR ---
RD ASSESSMENT & RECOMMENDATIONS SEE CARE ACTIVITY FOR COMPLETE ASSESSMENT DAILY ESTIMATED NEEDS: Needs based on Sepsis, wound/ 51.3 kg 25-35 kcals/kg 1283- 1796 total kcals 1.25-2 g protein/kg 64-103 g total protein 25-30 mL/kg 5504-1296 total fluid mLs NUTRITION DIAGNOSIS: * Increased kcal and pro needs r/t sepsis and wound healing as evidenced by pt w/ elev WBC (13.1-> wnl), BG (205-> 114 118 95), elev RR(29), elev HR (112 -> wnl), hypotensive, on pressor support, w/ sacral + lt stump wounds (stage 2 per RN). * Swallowing difficulty R/T dysphagia as evidenced by pt is PEG dep. * Altered nutrition related lab values R/T dehydration as evidenced by elev Na (165* -> wnl), elev BUN (118 -> wnl). CURRENT TF:Glucerna 1.2 @ 50ml/hr x 24 hrs ENTERAL NUTRITION RECOMMENDATIONS: Glucerna 1.2 @ 50ml/hr x 24 hrs to provide 1200ml, 1440kcal, 72g prot, 966ml free water * W/ HD stability, maintain current TF * HOB over 30 degrees/ water flush per MD WITHOUT HEMODYNAMIC STABILITY, rec trophic feeding of Glucerna 1.2 @ 20ml/hr ADDITIONAL RECOMMENDATIONS: 1) CALIBRATED bedscale wt, weekly wt monitoring ([facility] WT: 113#) 2) Monitor lytes, replete as needed 3) WOUND CARE: add Vit C 250mg QD, Wally 1pkt BID via PEG : rec wound eval (sacrum + lt stump) 4) Monitor HD stability - on pressor support at this time -> rec trophic feeds without HD stability .
--- NOTE | 2019-03-13 13:35 | NUR ---
NURSE NOTES: Dr. Connolly updated on patient x-ray and ordered additional on the Left femur Levophed titrated to 35ml/hr with SBP above 90.
--- NOTE | 2019-03-13 15:07 | Nephrology Progress Note ---
Assessment/Plan Problem List: (1) Renal failure (ARF), acute on chronic (2) Hypernatremia (3) Dehydration (4) Hypokalemia Assessment Acute Renal Failure- ? Underlying CKD Dehydration Sepsis / UTI Dementia PEG s/p CVA s/p Bilateral AKA Decubiti Plan today's labs noted Hydrate + K and Phos supplement IV Monitor I&O and renal parameters avoid nephrotoxics albumin bolus BS abd BP check Subjective ROS Limited/Unobtainable: No Constitutional: Reports: malaise, weakness Objective Objective Last 24 Hour Vital Signs Date Time Temp Pulse Resp B/P (MAP) Pulse Ox O2 Delivery O2 Flow Rate FiO2 03/13/19 14:00 77 27 99/53 100 Room Air 03/13/19 13:30 76 28 112/54 100 Room Air 03/13/19 13:01 110/55 03/13/19 13:00 76 28 110/55 100 Room Air 03/13/19 12:30 80 29 106/68 100 Room Air 03/13/19 12:00 99.6 51 30 104/59 100 Room Air 03/13/19 12:00 78 03/13/19 12:00 Room Air 03/13/19 11:30 81 28 103/56 100 Room Air 03/13/19 11:00 81 29 98/53 100 Room Air 03/13/19 10:30 79 30 98/50 100 Room Air 03/13/19 10:00 82 29 87/66 99 Room Air 03/13/19 09:30 78 30 93/48 100 Room Air 03/13/19 09:00 81 28 99/60 99 Room Air 03/13/19 08:30 81 30 88/47 100 Room Air 03/13/19 08:00 96 03/13/19 08:00 Room Air 03/13/19 08:00 99.8 81 26 98/50 99 Room Air 03/13/19 07:30 81 28 101/53 100 Room Air 03/13/19 07:03 99 Room Air 21 03/13/19 07:03 91 28 99 Room Air 03/13/19 07:00 93 29 85/49 98 Room Air 03/13/19 07:00 85/49 03/13/19 06:45 93/53 03/13/19 06:30 91 29 106/51 99 Room Air 03/13/19 06:15 106/51 03/13/19 06:00 91/51 03/13/19 06:00 82 27 99/47 100 Room Air 03/13/19 05:30 81 29 97/49 99 Room Air 03/13/19 05:23 97/55 03/13/19 05:15 97/49 03/13/19 05:00 92/50 03/13/19 05:00 79 29 92/50 100 Room Air 03/13/19 04:30 81 31 77/46 98 Room Air 03/13/19 04:30 110/51 03/13/19 04:00 98.7 77 30 103/51 100 Room Air 03/13/19 04:00 85 03/13/19 04:00 Room Air 03/13/19 04:00 103/51 03/13/19 03:30 79 34 95/51 98 Room Air 03/13/19 03:30 91/41 03/13/19 03:00 79 27 93/67 99 Room Air 03/13/19 02:30 105/49 03/13/19 02:30 80 27 91/49 99 Room Air 03/13/19 02:00 109/42 03/13/19 02:00 74 29 110/65 99 Room Air 03/13/19 01:45 77 28 106/48 99 Room Air 03/13/19 01:30 81 31 88/46 98 Room Air 03/13/19 01:30 106/48 03/13/19 01:15 88/46 03/13/19 01:15 74 29 90/47 99 Room Air 03/13/19 01:13 73 26 103/48 99 Room Air 03/13/19 01:00 92 30 88/54 98 Room Air 03/13/19 01:00 103/48 03/13/19 00:45 99 30 109/76 99 Room Air 03/13/19 00:30 91 27 96/58 99 Room Air 03/13/19 00:30 109/76 03/13/19 00:15 86 28 103/54 99 Room Air 03/13/19 00:00 79 03/13/19 00:00 103/54 03/13/19 00:00 Room Air 03/13/19 00:00 98.2 88 27 109/53 98 Room Air 03/12/19 23:45 77 28 102/60 100 Room Air 03/12/19 23:45 109/53 03/12/19 23:30 77 27 97/48 100 Room Air 03/12/19 23:30 97/48 03/12/19 23:15 72 26 107/50 100 Room Air 03/12/19 23:04 98/48 03/12/19 23:00 75 30 98/48 100 Room Air 03/12/19 22:30 100/35 03/12/19 22:15 85/45 03/12/19 22:15 80 30 85/45 100 Room Air 03/12/19 22:13 78 29 93/41 100 Room Air 03/12/19 22:00 78/40 03/12/19 22:00 81 33 78/40 99 Room Air 03/12/19 21:45 98/47 03/12/19 21:45 74 27 98/47 100 Room Air 03/12/19 21:30 114/44 03/12/19 21:30 73 25 114/44 100 Room Air 03/12/19 21:00 78 22 90/47 98 Room Air 03/12/19 21:00 90/47 03/12/19 20:30 89/47 03/12/19 20:30 79 25 89/47 99 Room Air 03/12/19 20:28 74 16 100 Room Air 21 03/12/19 20:28 100 Room Air 21 03/12/19 20:00 82 03/12/19 20:00 98.8 75 25 108/45 99 Room Air 03/12/19 20:00 108/45 03/12/19 20:00 Room Air 03/12/19 19:30 79 27 98/55 100 Room Air 03/12/19 19:00 98/50 03/12/19 19:00 74 26 98/50 100 Room Air 03/12/19 18:45 79 29 89/40 100 Room Air 03/12/19 18:30 103/43 03/12/19 18:30 74 25 103/43 100 Room Air 03/12/19 18:24 81 29 92/43 99 Room Air 03/12/19 18:15 79 28 82/38 100 Room Air 03/12/19 18:15 82/38 03/12/19 18:00 80 29 74/42 99 Room Air 03/12/19 18:00 74/42 03/12/19 17:30 84 28 107/44 99 Room Air 03/12/19 17:00 99/42 03/12/19 17:00 82 26 99/42 99 Room Air 03/12/19 16:45 75 26 100/48 100 Room Air 03/12/19 16:30 81 29 105/54 100 Room Air 03/12/19 16:30 105/54 03/12/19 16:15 99.6 80 25 96/47 99 Room Air 03/12/19 16:00 88 29 99/55 98 Room Air 03/12/19 16:00 98 03/12/19 16:00 99/55 03/12/19 16:00 Room Air 03/12/19 15:48 116/47 03/12/19 15:47 116/47 03/12/19 15:45 80 25 116/47 99 Room Air 03/12/19 15:30 81 28 121/53 99 Room Air 03/12/19 15:30 121/53 03/12/19 15:15 79 29 112/58 100 Room Air Intake and Output 03/12/19 03/13/19 18:59 06:59 Intake Total 2155.100 ml 1131.06 ml Output Total 1660 ml 1900 ml Balance 495.100 ml -768.94 ml Free Water 260 ml IV Total 1295.100 ml 531.06 ml Tube Feeding 600 ml 600 ml Output Urine Total 1660 ml 1900 ml Laboratory Tests 03/13/19 01:00: Vancomycin Level Trough 11.5 03/13/19 03:35: White Blood Count 12.0H, Red Blood Count 3.58L, Hemoglobin 10.4L, Hematocrit 32.3L, Mean Corpuscular Volume 90, Mean Corpuscular Hemoglobin 28.9, Mean Corpuscular Hemoglobin Concent 32.0, Red Cell Distribution Width 14.5, Platelet Count 205, Mean Platelet Volume 7.3, Neutrophils (%) (Auto) 53.0, Lymphocytes (% ) (Auto) 40.2, Monocytes (%) (Auto) 5.0, Eosinophils (%) (Auto) 1.3, Basophils ( %) (Auto) 0.5, Erythrocyte Sedimentation Rate 100H, Sodium Level 140, Potassium Level 4.4, Chloride Level 108H, Carbon Dioxide Level 23, Anion Gap 9, Blood Urea Nitrogen 8, Creatinine 0.5L, Estimat Glomerular Filtration Rate > 60, Glucose Level 164H, Calcium Level 7.8L, Phosphorus Level 2.5, Magnesium Level 1.9, Total Bilirubin 0.3, Aspartate Amino Transf (AST/SGOT) 23, Alanine Aminotransferase (ALT/SGPT) 18, Alkaline Phosphatase 81, C-Reactive Protein, Quantitative 7.0H, Total Protein 6.2L, Albumin 1.6L, Globulin 4.6, Albumin/ Globulin Ratio 0.3L Height (Feet): 3 Height (Inches): 6.00 Weight (Pounds): 117 General Appearance: no apparent distress Objective no change Gennaro Cagle MD Mar 13, 2019 15:07
[2019-03-13] MEDS ORDERED: NS 275ml ONE (16:05)
--- NOTE | 2019-03-13 16:05 | Diagnostic Imaging Report ---
Indications: Pain, suspected osteomyelitis Technique: Two views of the left humerus Comparison: None Findings: No acute fractures. No dislocations. No osseous erosions. Questionable tiny superficial radiopaque foreign body is seen posteromedially in the mid upper arm soft tissues. No soft tissue gas Impression: No acute bony trauma No plain radiographic findings to suggest acute osteomyelitis. Note, however, limited sensitivity of plain radiographs for such. Consider MRI or nuclear medicine bone scan if there is high clinical suspicion Possible tiny punctate foreign body
--- NOTE | 2019-03-13 16:20 | NUR ---
Social Service Note Patient is resident of [facility] since 12/2016. Patient with a POLST on file however it has not been signed by SYLVESTER Mcarthur or indicating Full code, Full treatment and [facility] artificial nutrition. Advance directives on file indicating Donte Mcarthur as the primary POA [phone] and his niece Luzma Mcarthur as the alternative [phone]. Advance directive completed 11/24/16. Patient's wishes indicated are choice not to prolong life. SW unable to reach Donte to address code status as patient is full code at this time. Will follow up. Patient will require SNF placement upon discharge and is anticipated to return to [facility] upon discharge.
--- NOTE | 2019-03-13 16:48 | NUR ---
NURSE NOTES: NURSE NOTES: Bp dropped below 90 with BP 86/66 on 8.9239mcg/min at 34ml/hr, patient remains awake and watching television with ability to use the remote, Levophed increased to 9.1854mcg/min at rate of 35ml/hr. bp increased to 109/55.
--- NOTE | 2019-03-13 16:50 | NUR ---
*-* INSURANCE *-* ALL CLINICALS HAVE BEEN FAXED TO: [facility] PLEASE FAX THE REVIEW / CLINICALS P- [phone] F- [phone]....REVIEW/CLINICALS
--- NOTE | 2019-03-13 18:06 | Internal Med Progress Note ---
Subjective Date of Service: Mar 13, 2019 Physician Name Darrick Stout Attending Physician Yannick Marshall MD Current Medications Medications (Trade) Dose Ordered Sig/Jennifer Route PRN Reason Start Time Stop Time Status Last Admin Dose Admin Acetaminophen (Tylenol) 650 mg Q4H PRN ORAL fever 03/07/19 11:30 04/06/19 07:29 03/09/19 08:10 Aspirin (ASA) 81 mg DAILY ORAL 03/09/19 09:00 04/08/19 08:59 03/13/19 09:40 Chlorhexidine Gluconate (Rani-Hex 2%) 1 applic DAILY@2000 TOPIC 03/07/19 20:00 04/06/19 19:59 03/12/19 20:26 Dextrose (Dextrose 50%) 25 ml Q30M PRN IV Hypoglycemia 03/07/19 15:15 04/06/19 15:14 Dextrose (Dextrose 50%) 50 ml Q30M PRN IV Hypoglycemia 03/07/19 15:15 04/06/19 15:14 Heparin Sodium (Porcine) (Heparin 5000 units/ml) 5,000 units EVERY 12 HOURS SUBQ 03/07/19 09:00 04/06/19 08:59 03/13/19 09:42 Insulin Aspart (NovoLOG) Q6HR SUBQ 03/07/19 15:15 04/06/19 15:14 03/13/19 12:47 Lorazepam (Ativan 2mg/ml 1ml) 2 mg Q4H PRN IV For Anxiety/seizure 03/11/19 16:30 03/18/19 16:29 Meropenem 1 gm/ Sodium Chloride 55 ml @ 110 mls/hr Q12HR@0200,1400 IVPB 03/11/19 14:00 03/16/19 13:59 03/13/19 15:53 Midodrine (Pro-Amatine) 5 mg THREE TIMES A DAY ORAL 03/10/19 13:00 04/09/19 12:59 03/13/19 12:44 Morphine Sulfate (Morphine Sulfate) 2 mg Q4H PRN IVP Severe Pain (Pain Scale 7-10) 03/07/19 09:00 03/14/19 08:59 Norepinephrine Bitartrate 4 mg/ Dextrose 254 ml @ 0 mls/hr Q24H IV 03/09/19 19:30 04/08/19 19:29 03/13/19 13:01 Ondansetron HCl (Zofran) 4 mg Q6H PRN IVP Nausea & Vomiting 03/07/19 09:00 04/06/19 08:59 Pantoprazole (Protonix) 40 mg Q12HR IVP 03/07/19 21:00 04/06/19 08:59 03/13/19 09:39 Polyethylene Glycol (Miralax) 17 gm DAILYPRN PRN ORAL Constipation 03/08/19 07:30 04/06/19 07:29 Quetiapine Fumarate (SEROquel) 12.5 mg BID ORAL 03/07/19 09:00 04/06/19 08:59 03/13/19 09:39 Vancomycin HCl (Vanco rx to dose) 1 ea DAILY PRN MISC VANCOMYCIN 03/07/19 10:30 04/06/19 10:29 Vancomycin HCl 1 gm/Sodium Chloride 275 ml @ 183.708 mls/hr Q12H IVPB 03/13/19 10:00 03/18/19 09:59 03/13/19 10:43 Allergies: Coded Allergies: No Known Allergies (Unverified , 03/07/19) ROS Limited/Unobtainable: No Constitutional: Reports: no symptoms HEENT: Reports: no symptoms Cardiovascular: Reports: no symptoms Respiratory: Reports: no symptoms Gastrointestinal/Abdominal: Reports: no symptoms Genitourinary: Reports: no symptoms Neurologic/Psychiatric: Reports: no symptoms Subjective 68 YO M admitted with hypotension. Now sepsis. ICU. Cover for Int Travon-Dr Marshall. Continues on levophed Objective Last Vital Signs Date Time Temp Pulse Resp B/P (MAP) Pulse Ox O2 Delivery O2 Flow Rate FiO2 03/13/19 17:00 91 33 98/51 97 Room Air 03/13/19 16:00 99.1 03/13/19 07:03 21 03/12/19 12:45 2.0 Laboratory Tests Test 03/13/19 01:00 03/13/19 03:35 Vancomycin Level Trough 11.5 ug/mL (5.0-12.0) White Blood Count 12.0 K/UL (4.8-10.8) H Red Blood Count 3.58 M/UL (4.70-6.10) L Hemoglobin 10.4 G/DL (14.2-18.0) L Hematocrit 32.3 % (42.0-52.0) L Mean Corpuscular Volume 90 FL (80-99) Mean Corpuscular Hemoglobin 28.9 PG (27.0-31.0) Mean Corpuscular Hemoglobin Concent 32.0 G/DL (32.0-36.0) Red Cell Distribution Width 14.5 % (11.6-14.8) Platelet Count 205 K/UL (150-450) Mean Platelet Volume 7.3 FL (6.5-10.1) Neutrophils (%) (Auto) 53.0 % (45.0-75.0) Lymphocytes (%) (Auto) 40.2 % (20.0-45.0) Monocytes (%) (Auto) 5.0 % (1.0-10.0) Eosinophils (%) (Auto) 1.3 % (0.0-3.0) Basophils (%) (Auto) 0.5 % (0.0-2.0) Erythrocyte Sedimentation Rate 100 MM/HR (0-20) H Sodium Level 140 MMOL/L (136-145) Potassium Level 4.4 MMOL/L (3.5-5.1) Chloride Level 108 MMOL/L (98-107) H Carbon Dioxide Level 23 MMOL/L (21-32) Anion Gap 9 mmol/L (5-15) Blood Urea Nitrogen 8 mg/dL (7-18) Creatinine 0.5 MG/DL (0.55-1.30) L Estimat Glomerular Filtration Rate > 60 mL/min (>60) Glucose Level 164 MG/DL (74-106) H Calcium Level 7.8 MG/DL (8.5-10.1) L Phosphorus Level 2.5 MG/DL (2.5-4.9) Magnesium Level 1.9 MG/DL (1.8-2.4) Total Bilirubin 0.3 MG/DL (0.2-1.0) Aspartate Amino Transf (AST/SGOT) 23 U/L (15-37) Alanine Aminotransferase (ALT/SGPT) 18 U/L (12-78) Alkaline Phosphatase 81 U/L (46-116) C-Reactive Protein, Quantitative 7.0 mg/dL (0.00-0.90) H Total Protein 6.2 G/DL (6.4-8.2) L Albumin 1.6 G/DL (3.4-5.0) L Globulin 4.6 g/dL Albumin/Globulin Ratio 0.3 (1.0-2.7) L Microbiology Date/Time Source Procedure Growth Status 03/11/19 13:10 Blood Blood Culture - Preliminary NO GROWTH AFTER 24 HOURS Resulted 03/11/19 11:07 Blood Blood Culture - Preliminary Resulted Intake and Output 03/12/19 03/13/19 19:00 07:00 Intake Total 2056.050 ml 1120.76 ml Output Total 1670 ml 1910 ml Balance 386.050 ml -789.24 ml Free Water 230 ml IV Total 1226.050 ml 520.76 ml Tube Feeding 600 ml 600 ml Output Urine Total 1670 ml 1910 ml Objective PHYSICAL EXAMINATION: GENERAL: The patient is awake, opens his eyes, cachectic, malnutrition. HEAD AND NECK: Pupils are equal and reactive to light. Anicteric. Neck was supple. No JVD. LUNGS: Clear. No wheezing or rales. Decreased air in bases. Coarse breath sounds. HEART: S1, S2. Tachycardic. No murmur or gallops. ABDOMEN: Soft, nondistended, and nontender. Positive bowel sounds. G-tube is in place. RECTAL/GENITOURINARY: The patient has a Pelayo catheter. EXTREMITIES: Bilateral AKA was noted with stump intact. NEUROLOGIC: Limited secondary to the patient's status. The patient is moving the left upper extremity. Right upper extremity is flaccid. FLEXOGRAPHIC PRESS HELPER II through XII grossly intact, but it is very hard to follow. Neurologic examination is very limited secondary to the patient's status. Assessment/Plan Assessment/Plan ASSESSMENT: 1. Sepsis, septic shock most likely secondary to the urinary tract infection. 2. Acute kidney injury on chronic renal insufficiency due to severe dehydration. 3. Urinary tract infection. 4. Hypertension, presently hypotensive. 5. History of CVA. 6. Dysphagia, status post PEG. 7. Diabetes type 2. 8. Status post bilateral AKA. 9. Advanced dementia. 10. History of stroke with right-sided hemiparesis. 11. Hypernatremia/hypokalemia PLAN: 1. Admit the patient to the ICU. 2. Urine culture=Proteus. Continue meropenem and vanco per ID= Dr Connolly Code status at this time is Full Code. Resume mcfp medication, G-tube feeding. Darrick Stout MD Mar 13, 2019 18:06
--- NOTE | 2019-03-13 19:29 | NUR ---
HAND-OFF: Report given to Peter Peter RN.
[2019-03-13] MEDS: Dyna-Hex 2% Top Sol 2oz TOPIC SCH (19:47)
--- NOTE | 2019-03-13 19:50 | NUR ---
NURSE NOTES: PATIENT AWOKE, ABLE TO EYE CONTACT, NON VERBAL STATUS, RESPIRATION REGULAR ON ROOM AIR, NO SOB AND O2 SATURATION OVER 96% NOTED, ABDOMEN SOFT, NON TENDER, NO BOWEL MOVEMENT STATUS, G TUBE INTACT AND PATENT, ONGOING GLUCERNA 1.2 AT 50ML/HR, NO RESIDUE NOTED, KEPT HOB OVER 30 DEGREES, KEPT ASPIRATION AND SZ PRECAUTION, F/C INTACT AND PATENT, YELLOW URINE OUTED, RIGHT SIDE WEAKNESS, BOTH AKA ELEVATED STUMP, TLC TO RIGHT SC, INTACT AND PATENT, ONGOING LEVOPHED 35ML/HR VIA TLC, ON P 200 BED AND BED ALARM, MADE LOWER BED POSITION, PROVIDED CALL LIGHT WITHIN REACH, WILL CONTINUE TO MONITOR.
--- NOTE | 2019-03-13 20:10 | NUR ---
NURSE NOTES: SEEN THE PATIENT BY DR. DE ANDA.
--- NOTE | 2019-03-13 20:31 | Cardiology Progress Note ---
Assessment/Plan Assessment/Plan 1. Hypernatremia. 2. Dehydration. 3. Azotemia. 4. Sinus tachycardia. 5. Septic shock. 6. Renal failure. 7. Bilateral amputation. 8. Dementia. 9. Peripheral vascular disease. 10. Systemic hypertension. 11. abn cardiac enzyme demand related 12. hypoalbuminemia 13. hypotension blood cx remain neg except one that is positive may be contamintne na improved need pressor for hypotension still but weaning to keep map grater than 60 tele reviewed sinus pac pvcs am cortisol has been checked an is fine seems awake but nto verbal d/w rn tel reviewed Subjective ROS Limited/Unobtainable: Yes Objective Last 24 Hour Vital Signs Date Time Temp Pulse Resp B/P (MAP) Pulse Ox O2 Delivery O2 Flow Rate FiO2 03/13/19 19:00 77 27 105/41 98 Room Air 03/13/19 19:00 105/41 03/13/19 18:45 76 28 95/51 99 Room Air 03/13/19 18:30 88/52 03/13/19 18:30 80 27 85/58 98 Room Air 03/13/19 18:00 88 27 91/47 97 Room Air 03/13/19 18:00 91/47 03/13/19 17:30 85 27 110/58 98 Room Air 03/13/19 17:00 91 33 98/51 97 Room Air 03/13/19 17:00 98/51 03/13/19 16:30 78 25 86/66 97 Room Air 03/13/19 16:30 86/66 03/13/19 16:00 Room Air 03/13/19 16:00 99.1 76 29 97/50 98 Room Air 03/13/19 16:00 95/49 03/13/19 16:00 77 03/13/19 15:30 97/52 03/13/19 15:30 78 28 97/52 97 Room Air 03/13/19 15:00 107/59 03/13/19 15:00 85 29 107/59 97 Room Air 03/13/19 14:30 94 27 94/53 98 Room Air 03/13/19 14:00 77 27 99/53 100 Room Air 03/13/19 14:00 99/53 03/13/19 13:30 76 28 112/54 100 Room Air 03/13/19 13:01 110/55 03/13/19 13:00 76 28 110/55 100 Room Air 03/13/19 12:30 80 29 106/68 100 Room Air 03/13/19 12:00 99.6 51 30 104/59 100 Room Air 03/13/19 12:00 78 03/13/19 12:00 Room Air 03/13/19 12:00 104/59 03/13/19 11:30 81 28 103/56 100 Room Air 03/13/19 11:00 81 29 98/53 100 Room Air 03/13/19 11:00 98/52 03/13/19 10:30 79 30 98/50 100 Room Air 03/13/19 10:00 82 29 87/66 99 Room Air 03/13/19 10:00 87/66 03/13/19 09:30 78 30 93/48 100 Room Air 03/13/19 09:00 99/60 03/13/19 09:00 81 28 99/60 99 Room Air 03/13/19 08:30 81 30 88/47 100 Room Air 03/13/19 08:00 96 03/13/19 08:00 98/50 03/13/19 08:00 Room Air 03/13/19 08:00 99.8 81 26 98/50 99 Room Air 03/13/19 07:30 81 28 101/53 100 Room Air 03/13/19 07:03 99 Room Air 21 03/13/19 07:03 91 28 99 Room Air 21 03/13/19 07:00 93 29 85/49 98 Room Air 03/13/19 07:00 85/49 03/13/19 06:45 93/53 03/13/19 06:30 91 29 106/51 99 Room Air 03/13/19 06:15 106/51 03/13/19 06:00 91/51 03/13/19 06:00 82 27 99/47 100 Room Air 03/13/19 05:30 81 29 97/49 99 Room Air 03/13/19 05:23 97/55 03/13/19 05:15 97/49 03/13/19 05:00 92/50 03/13/19 05:00 79 29 92/50 100 Room Air 03/13/19 04:30 81 31 77/46 98 Room Air 10/17/19 04:30 110/51 03/13/19 04:00 98.7 77 30 103/51 100 Room Air 03/13/19 04:00 85 03/13/19 04:00 Room Air 03/13/19 04:00 103/51 03/13/19 03:30 79 34 95/51 98 Room Air 03/13/19 03:30 91/41 03/13/19 03:00 79 27 93/67 99 Room Air 03/13/19 02:30 105/49 03/13/19 02:30 80 27 91/49 99 Room Air 03/13/19 02:00 109/42 03/13/19 02:00 74 29 110/65 99 Room Air 03/13/19 01:45 77 28 106/48 99 Room Air 03/13/19 01:30 81 31 88/46 98 Room Air 03/13/19 01:30 106/48 03/13/19 01:15 88/46 03/13/19 01:15 74 29 90/47 99 Room Air 03/13/19 01:13 73 26 103/48 99 Room Air 03/13/19 01:00 92 30 88/54 98 Room Air 03/13/19 01:00 103/48 03/13/19 00:45 99 30 109/76 99 Room Air 03/13/19 00:30 91 27 96/58 99 Room Air 03/13/19 00:30 109/76 03/13/19 00:15 86 28 103/54 99 Room Air 03/13/19 00:00 79 03/13/19 00:00 103/54 03/13/19 00:00 Room Air 03/13/19 00:00 98.2 88 27 109/53 98 Room Air 03/12/19 23:45 77 28 102/60 100 Room Air 03/12/19 23:45 109/53 03/12/19 23:30 77 27 97/48 100 Room Air 03/12/19 23:30 97/48 03/12/19 23:15 72 26 107/50 100 Room Air 03/12/19 23:04 98/48 03/12/19 23:00 75 30 98/48 100 Room Air 03/12/19 22:30 100/35 03/12/19 22:15 85/45 03/12/19 22:15 80 30 85/45 100 Room Air 03/12/19 22:13 78 29 93/41 100 Room Air 03/12/19 22:00 78/40 03/12/19 22:00 81 33 78/40 99 Room Air 03/12/19 21:45 98/47 03/12/19 21:45 74 27 98/47 100 Room Air 03/12/19 21:30 114/44 03/12/19 21:30 73 25 114/44 100 Room Air 03/12/19 21:00 78 22 90/47 98 Room Air 03/12/19 21:00 90/47 General Appearance: no apparent distress Cardiovascular: normal rate Respiratory/Chest: rhonchi - bilaterally Abdomen: normal bowel sounds, non tender, soft Extremities: other - amputee Intake and Output 03/12/19 03/13/19 19:00 07:00 Intake Total 2056.050 ml 1120.76 ml Output Total 1670 ml 1910 ml Balance 386.050 ml -789.24 ml Free Water 230 ml IV Total 1226.050 ml 520.76 ml Tube Feeding 600 ml 600 ml Output Urine Total 1670 ml 1910 ml Laboratory Tests Test 03/13/19 01:00 03/13/19 03:35 Vancomycin Level Trough 11.5 ug/mL (5.0-12.0) White Blood Count 12.0 K/UL (4.8-10.8) H Red Blood Count 3.58 M/UL (4.70-6.10) L Hemoglobin 10.4 G/DL (14.2-18.0) L Hematocrit 32.3 % (42.0-52.0) L Mean Corpuscular Volume 90 FL (80-99) Mean Corpuscular Hemoglobin 28.9 PG (27.0-31.0) Mean Corpuscular Hemoglobin Concent 32.0 G/DL (32.0-36.0) Red Cell Distribution Width 14.5 % (11.6-14.8) Platelet Count 205 K/UL (150-450) Mean Platelet Volume 7.3 FL (6.5-10.1) Neutrophils (%) (Auto) 53.0 % (45.0-75.0) Lymphocytes (%) (Auto) 40.2 % (20.0-45.0) Monocytes (%) (Auto) 5.0 % (1.0-10.0) Eosinophils (%) (Auto) 1.3 % (0.0-3.0) Basophils (%) (Auto) 0.5 % (0.0-2.0) Erythrocyte Sedimentation Rate 100 MM/HR (0-20) H Sodium Level 140 MMOL/L (136-145) Potassium Level 4.4 MMOL/L (3.5-5.1) Chloride Level 108 MMOL/L (98-107) H Carbon Dioxide Level 23 MMOL/L (21-32) Anion Gap 9 mmol/L (5-15) Blood Urea Nitrogen 8 mg/dL (7-18) Creatinine 0.5 MG/DL (0.55-1.30) L Estimat Glomerular Filtration Rate > 60 mL/min (>60) Glucose Level 164 MG/DL (74-106) H Calcium Level 7.8 MG/DL (8.5-10.1) L Phosphorus Level 2.5 MG/DL (2.5-4.9) Magnesium Level 1.9 MG/DL (1.8-2.4) Total Bilirubin 0.3 MG/DL (0.2-1.0) Aspartate Amino Transf (AST/SGOT) 23 U/L (15-37) Alanine Aminotransferase (ALT/SGPT) 18 U/L (12-78) Alkaline Phosphatase 81 U/L (46-116) C-Reactive Protein, Quantitative 7.0 mg/dL (0.00-0.90) H Total Protein 6.2 G/DL (6.4-8.2) L Albumin 1.6 G/DL (3.4-5.0) L Globulin 4.6 g/dL Albumin/Globulin Ratio 0.3 (1.0-2.7) L Microbiology Date/Time Source Procedure Growth Status 03/11/19 13:10 Blood Blood Culture - Preliminary NO GROWTH AFTER 24 HOURS Resulted 03/11/19 11:07 Blood Blood Culture - Preliminary Resulted Pradeep Wen MD Mar 13, 2019 20:31
--- NOTE | 2019-03-13 22:10 | NUR ---
NURSE NOTES: CLEANED THE PATIENT DUE TO BOWEL MOVEMENT, NO RESISTANCE TO CARE.
[2019-03-14] VITALS (31 sets, daily range): BP systolic 69–111; BP diastolic 36–56
--- NOTE | 2019-03-14 00:22 | NUR ---
NURSE NOTES: PATIENT CALM, NO PAIN OR DISTRESS NOTED AT THIS TIME.
[2019-03-14] MEDS: Meropenem 1 GM in NS 55 ML IVPB SCH (02:01)
--- NOTE | 2019-03-14 02:21 | NUR ---
NURSE NOTES: NO DISTRESS NOTED, ON LEVOPHED 34ML/HR VIA TLC, TO KEEP MAP >60 ORDER.
--- NOTE | 2019-03-14 04:20 | NUR ---
NURSE NOTES: MORNING CARE WAS DONE, COOPERATIVE TO CARE.
[2019-03-14 05:23] LABS: BASOPHILS % (AUTO) 0.4 % (0.0-2.0); EOSINOPHILS % (AUTO) 1.3 % (0.0-3.0); HEMATOCRIT 33.5 % (42.0-52.0); HEMOGLOBIN 10.8 G/DL (14.2-18.0); LYMPHOCYTES % (AUTO) 42.2 % (20.0-45.0); MEAN CORPUSCULAR VOLUME 90 FL (80-99); MONOCYTES % (AUTO) 5.8 % (1.0-10.0); NEUTROPHILS % (AUTO) 50.3 % (45.0-75.0); PLATELET COUNT 259 K/UL (150-450); RED BLOOD COUNT 3.74 M/UL (4.70-6.10); RED CELL DISTRIBUTION WIDTH 14.4 % (11.6-14.8); WHITE BLOOD COUNT 9.7 K/UL (4.8-10.8)
[2019-03-14 05:37] LABS: ALANINE AMINOTRANSFERASE 20 U/L (12-78); ALBUMIN 1.7 G/DL (3.4-5.0); ALBUMIN/GLOBULIN RATIO 0.4 (1.0-2.7); ALKALINE PHOSPHATASE 95 U/L (46-116); ANION GAP 6 mmol/L (5-15); BILIRUBIN,TOTAL 0.3 MG/DL (0.2-1.0); BLOOD UREA NITROGEN 12 mg/dL (7-18); CALCIUM 7.8 MG/DL (8.5-10.1); CARBON DIOXIDE 26 MMOL/L (21-32); CHLORIDE 107 MMOL/L (98-107); CREATININE 0.5 MG/DL (0.55-1.30); PHOSPHORUS 2.7 MG/DL (2.5-4.9); POTASSIUM 3.8 MMOL/L (3.5-5.1); SODIUM 139 MMOL/L (136-145)
[2019-03-14] MEDS: NovoLOG Insulin Flexpen SUBQ SCH ×2 (05:48→12:00)
[2019-03-14 06:29] LABS: ASPARTATE AMINO TRANSFERASE 25 U/L (15-37)
--- NOTE | 2019-03-14 06:43 | NUR ---
NURSE NOTES: NO ACUTE DISTRESS NOTED AT THIS SHIFT.
--- NOTE | 2019-03-14 07:17 | NUR ---
HAND-OFF: Report given to SARAH OCHOA.
[2019-03-14] MEDS: Pantoprazole Inj IVP SCH (09:12)
[2019-03-14] MEDS: Aspirin Baby 81mg ORAL SCH (09:13)
[2019-03-14] MEDS: Heparin 5000 units/ml inj SUBQ SCH (09:14)
--- NOTE | 2019-03-14 09:45 | NUR ---
NURSE NOTES: Dr. Cagle assessed the patient at the bedside, ordered to change midodrine to 10mg q8hrs.
--- NOTE | 2019-03-14 10:19 | Pulmonolgy Critical Care Note ---
Critical Care - Asmt/Plan Problems: (1) Nosocomial pneumonia (2) Severe sepsis (3) Renal failure (ARF), acute on chronic (4) CVA (cerebral vascular accident) (5) S/P AKA (above knee amputation) bilateral (6) Decubitus skin ulcer (7) Pleural effusion on left (8) Alzheimer's dementia (9) Feeding by G-tube Respiratory: monitor respiratory rate, adjust FIO2, CXR Cardiac: continue pressors Renal: F/U I&O, check electrolytes Infectious Disease: check cultures, continue antibiotics Gastrointestinal: continue feedings/current rate Endocrine: monitor blood sugar Hematologic: monitor H/H, transfuse if hgb<8.5 Neurologic: PRN Ativan, PRN Morphine, keep patient comfortable Affect: PRN ativan Prophylaxis: Heparin Disposition: keep in ICU Time Spent (Minutes): 40 Discussed with: nurses, consultants, nurse case manager, other - director of social media marketing discussing the plan of care with Critical Care - Objective Last 24 Hour Vital Signs Date Time Temp Pulse Resp B/P (MAP) Pulse Ox O2 Delivery O2 Flow Rate FiO2 03/14/19 09:00 94 31 96/54 99 Room Air 03/14/19 08:30 89 30 94/52 99 Room Air 03/14/19 08:00 99.1 88 29 102/53 99 Room Air 03/14/19 08:00 83 03/14/19 07:30 85 28 103/55 99 Room Air 03/14/19 07:00 90 30 97/54 99 Room Air 03/14/19 07:00 97/54 03/14/19 06:30 91 24 84/50 98 Room Air 03/14/19 06:00 96/56 03/14/19 06:00 87 28 96/56 99 Room Air 03/14/19 05:30 86 29 105/56 99 Room Air 03/14/19 05:00 88/53 03/14/19 05:00 92 28 88/53 99 Room Air 03/14/19 04:30 84 28 100/55 99 Room Air 03/14/19 04:02 84/56 03/14/19 04:00 98.8 89 27 84/56 99 Room Air 03/14/19 04:00 84/56 03/14/19 04:00 Room Air 03/14/19 03:30 90 30 84/47 98 Room Air 03:14 92 03/14/19 03:00 103/50 18 03:00 83 28 103/50 97 Room Air 03/14/19 02:30 88 27 97/48 97 Room Air 03/14/19 02:00 83 26 90/48 98 Room Air 03/14/19 02:00 90/48 03/14/19 01:30 85 28 99/51 97 Room Air 03/14/19 01:00 82 28 96/50 99 Room Air 03/14/19 01:00 96/50 03/14/19 00:30 69 23 111/47 96 Room Air 03/14/19 00:00 90/52 03/14/19 00:00 Room Air 03/14/19 00:00 97.8 89 26 90/52 97 Room Air 03/13/19 23:30 86 27 100/48 97 Room Air 03/13/19 23:27 88 03/13/19 23:00 84 29 100/55 97 Room Air 03/13/19 23:00 100/55 03/13/19 22:45 89 27 95/50 97 Room Air 03/13/19 22:30 87 27 108/54 97 Room Air 03/13/19 22:00 89 29 104/50 96 Room Air 03/13/19 22:00 104/50 03/13/19 21:30 87 26 104/52 99 Room Air 03/13/19 21:00 86 29 104/54 98 Room Air 03/13/19 21:00 104/54 03/13/19 20:35 91 28 92/48 98 Room Air 03/13/19 20:34 63/42 03/13/19 20:30 90 27 63/42 98 Room Air 03/13/19 20:00 Room Air 03/13/19 20:00 85/49 03/13/19 20:00 98.7 93 29 85/49 98 Room Air 03/13/ 19:37 88 03/13/19 19:30 78 28 88/44 99 Room Air 17/19 19:00 77 27 105/41 98 Room Air 03/13/19 19:00 105/41 17/19 18:45 76 28 95/51 99 Room Air 17/19 18:30 88/52 10/17/19 18:30 80 27 85/58 98 Room Air 03/13/19 18:00 88 27 91/47 97 Room Air 03/13/19 18:00 91/47 03/13/19 17:30 85 27 110/58 98 Room Air 03/13/19 17:00 91 33 98/51 97 Room Air 03/13/19 17:00 98/51 03/13/19 16:30 78 25 86/66 97 Room Air 03/13/19 16:30 86/66 03/13/19 16:00 Room Air 03/13/19 16:00 99.1 76 29 97/50 98 Room Air 03/13/19 16:00 95/49 03/13/19 16:00 77 03/13/19 15:30 97/52 03/13/19 15:30 78 28 97/52 97 Room Air 03/13/19 15:00 107/59 03/13/19 15:00 85 29 107/59 97 Room Air 03/13/19 14:30 94 27 94/53 98 Room Air 03/13/19 14:00 77 27 99/53 100 Room Air 03/13/19 14:00 99/53 03/13/19 13:30 76 28 112/54 100 Room Air 03/13/19 13:01 110/55 03/13/19 13:00 76 28 110/55 100 Room Air 03/13/19 12:30 80 29 106/68 100 Room Air 03/13/19 12:00 99.6 51 30 104/59 100 Room Air 03/13/19 12:00 78 03/13/19 12:00 Room Air 03/13/19 12:00 104/59 03/13/19 11:30 81 28 103/56 100 Room Air 03/13/19 11:00 81 29 98/53 100 Room Air 03/13/19 11:00 98/52 03/13/19 10:30 79 30 98/50 100 Room Air Status: awake Condition: critical HEENT: atraumatic Neck: full ROM Lungs: clear Heart: HR/BP unstable Abdomen: soft, non-tender Extremities: no C/C/E Micro: Microbiology Date/Time Source Procedure Growth Status 03/11/19 13:10 Blood Blood Culture - Preliminary NO GROWTH AFTER 48 HOURS Resulted 03/11/19 11:07 Blood Blood Culture - Preliminary Resulted Accucheck: 114 Critical Care - Subjective ROS Limited/Unobtainable: Yes Condition: critical EKG Rhythm: Sinus Rhythm FI02: 21 Sputum Amount: None Tube Feeding Amount: 50 I&O: Intake and Output 03/13/19 03/14/19 19:00 07:00 Intake Total 1415.2440 ml 1442 ml Output Total 1550 ml 1790 ml Balance -134.7560 ml -348 ml Free Water 180 ml 100 ml IV Total 585.2440 ml 742 ml Tube Feeding 600 ml 600 ml Other 50 ml Output Urine Total 1550 ml 1790 ml # Bowel Movements 1 CXR: no change Labs: Laboratory Tests Test 03/14/19 04:00 03/14/19 09:05 White Blood Count 9.7 K/UL (4.8-10.8) Red Blood Count 3.74 M/UL (4.70-6.10) L Hemoglobin 10.8 G/DL (14.2-18.0) L Hematocrit 33.5 % (42.0-52.0) L Mean Corpuscular Volume 90 FL (80-99) Mean Corpuscular Hemoglobin 28.8 PG (27.0-31.0) Mean Corpuscular Hemoglobin Concent 32.1 G/DL (32.0-36.0) Red Cell Distribution Width 14.4 % (11.6-14.8) Platelet Count 259 K/UL (150-450) Mean Platelet Volume 6.3 FL (6.5-10.1) L Neutrophils (%) (Auto) 50.3 % (45.0-75.0) Lymphocytes (%) (Auto) 42.2 % (20.0-45.0) Monocytes (%) (Auto) 5.8 % (1.0-10.0) Eosinophils (%) (Auto) 1.3 % (0.0-3.0) Basophils (%) (Auto) 0.4 % (0.0-2.0) Erythrocyte Sedimentation Rate 104 MM/HR (0-20) H Sodium Level 139 MMOL/L (136-145) Potassium Level 3.8 MMOL/L (3.5-5.1) Chloride Level 107 MMOL/L (98-107) Carbon Dioxide Level 26 MMOL/L (21-32) Anion Gap 6 mmol/L (5-15) Blood Urea Nitrogen 12 mg/dL (7-18) Creatinine 0.5 MG/DL (0.55-1.30) L Estimat Glomerular Filtration Rate > 60 mL/min (>60) Glucose Level 113 MG/DL (74-106) H Calcium Level 7.8 MG/DL (8.5-10.1) L Phosphorus Level 2.7 MG/DL (2.5-4.9) Magnesium Level 1.9 MG/DL (1.8-2.4) Total Bilirubin 0.3 MG/DL (0.2-1.0) Aspartate Amino Transf (AST/SGOT) 25 U/L (15-37) Alanine Aminotransferase (ALT/SGPT) 20 U/L (12-78) Alkaline Phosphatase 95 U/L (46-116) C-Reactive Protein, Quantitative 4.6 mg/dL (0.00-0.90) H Total Protein 6.3 G/DL (6.4-8.2) L Albumin 1.7 G/DL (3.4-5.0) L Globulin 4.6 g/dL Albumin/Globulin Ratio 0.4 (1.0-2.7) L Vancomycin Level Trough 17.1 ug/mL (5.0-12.0) H Jaylin Dickson MD Mar 14, 2019 10:19
[2019-03-14] MEDS: Vancomycin 1 GM in NS 275 ML IVPB SCH (10:41)
--- NOTE | 2019-03-14 10:46 | Nephrology Progress Note ---
Assessment/Plan Problem List: (1) Renal failure (ARF), acute on chronic (2) Hypernatremia (3) Dehydration (4) Hypokalemia Assessment Acute Renal Failure- ? Underlying CKD Dehydration Sepsis / UTI Dementia PEG s/p CVA s/p Bilateral AKA Decubiti Plan still on pressors increase Midodrine today's labs noted Hydrate + K and Phos supplement IV Monitor I&O and renal parameters avoid nephrotoxics albumin bolus BS abd BP check Subjective ROS Limited/Unobtainable: No Objective Objective Last 24 Hour Vital Signs Date Time Temp Pulse Resp B/P (MAP) Pulse Ox O2 Delivery O2 Flow Rate FiO2 03/14/19 10:30 93/54 03/14/19 10:00 89 29 91/53 98 Room Air 03/14/19 09:00 94 31 96/54 99 Room Air 03/14/19 09:00 103/56 03/14/19 08:30 89 30 94/52 99 Room Air 03/14/19 08:00 99.1 88 29 102/53 99 Room Air 03/14/19 08:00 83 03/14/19 07:30 85 28 103/55 99 Room Air 03/14/19 07:00 90 30 97/54 99 Room Air 03/14/19 07:00 97/54 03/14/19 06:30 91 24 84/50 98 Room Air 03/14/19 06:00 96/56 03/14/19 06:00 87 28 96/56 99 Room Air 03/14/19 05:30 86 29 105/56 99 Room Air 03/14/19 05:00 88/53 03/14/19 05:00 92 28 88/53 99 Room Air 03/14/19 04:30 84 28 100/55 99 Room Air 03/14/19 04:02 84/56 03/14/19 04:00 98.8 89 27 84/56 99 Room Air 03/14/19 04:00 84/56 03/14/19 04:00 Room Air 03/14/19 03:30 90 30 84/47 98 Room Air 03/14/19 03:14 92 03/14/19 03:00 103/50 03/14/19 03:00 83 28 103/50 97 Room Air 03/14/19 02:30 88 27 97/48 97 Room Air 03/14/19 02:00 83 26 90/48 98 Room Air 03/14/19 02:00 90/48 03/14/19 01:30 85 28 99/51 97 Room Air 03/14/19 01:00 82 28 96/50 99 Room Air 18 01:00 96/50 03/14/19 00:30 69 23 111/47 96 Room Air 03/14/19 00:00 90/52 03/14/19 00:00 Room Air 03/14/19 00:00 97.8 89 26 90/52 97 Room Air 03/13/19 23:30 86 27 100/48 97 Room Air 03/13/19 23:27 88 03/13/19 23:00 84 29 100/55 97 Room Air 03/13/19 23:00 100/55 03/13/19 22:45 89 27 95/50 97 Room Air 03/13/19 22:30 87 27 108/54 97 Room Air 03/13/19 22:00 89 29 104/50 96 Room Air 03/13/19 22:00 104/50 03/13/19 21:30 87 26 104/52 99 Room Air 03/13/19 21:00 86 29 104/54 98 Room Air 03/13/19 21:00 104/54 03/13/19 20:35 91 28 92/48 98 Room Air 03/13/19 20:34 63/42 03/13/ 20:30 90 27 63/42 98 Room Air 03/13/19 20:00 Room Air 03/13/19 20:00 85/49 03/13/19 20:00 98.7 93 29 85/49 98 Room Air 03/13/19 19:37 88 03/13/19 19:30 78 28 88/44 99 Room Air 17/19 19:00 77 27 105/41 98 Room Air 17/19 19:00 105/41 17/19 18:45 76 28 95/51 99 Room Air 17/19 18:30 88/52 17/19 18:30 80 27 85/58 98 Room Air 17/19 18:00 88 27 91/47 97 Room Air 17/19 18:00 91/47 17/19 17:30 85 27 110/58 98 Room Air 10/17/19 17:00 91 33 98/51 97 Room Air 03/13/19 17:00 98/51 03/13/19 16:30 78 25 86/66 97 Room Air 03/13/19 16:30 86/66 03/13/19 16:00 Room Air 03/13/19 16:00 99.1 76 29 97/50 98 Room Air 03/13/19 16:00 95/49 03/13/19 16:00 77 03/13/19 15:30 97/52 03/13/19 15:30 78 28 97/52 97 Room Air 03/13/19 15:00 107/59 03/13/19 15:00 85 29 107/59 97 Room Air 03/13/19 14:30 94 27 94/53 98 Room Air 03/13/19 14:00 77 27 99/53 100 Room Air 03/13/19 14:00 99/53 03/13/19 13:30 76 28 112/54 100 Room Air 03/13/19 13:01 110/55 03/13/19 13:00 76 28 110/55 100 Room Air 03/13/19 12:30 80 29 106/68 100 Room Air 03/13/19 12:00 99.6 51 30 104/59 100 Room Air 03/13/19 12:00 78 03/13/19 12:00 Room Air 03/13/19 12:00 104/59 03/13/19 11:30 81 28 103/56 100 Room Air 03/13/19 11:00 81 29 98/53 100 Room Air 03/13/19 11:00 98/52 Intake and Output 03/13/19 03/14/19 19:00 07:00 Intake Total 1415.2440 ml 1442 ml Output Total 1550 ml 1790 ml Balance -134.7560 ml -348 ml Free Water 180 ml 100 ml IV Total 585.2440 ml 742 ml Tube Feeding 600 ml 600 ml Other 50 ml Output Urine Total 1550 ml 1790 ml # Bowel Movements 1 Laboratory Tests 03/14/19 04:00: White Blood Count 9.7, Red Blood Count 3.74L, Hemoglobin 10.8L, Hematocrit 33.5L , Mean Corpuscular Volume 90, Mean Corpuscular Hemoglobin 28.8, Mean Corpuscular Hemoglobin Concent 32.1, Red Cell Distribution Width 14.4, Platelet Count 259, Mean Platelet Volume 6.3L, Neutrophils (%) (Auto) 50.3, Lymphocytes ( %) (Auto) 42.2, Monocytes (%) (Auto) 5.8, Eosinophils (%) (Auto) 1.3, Basophils (%) (Auto) 0.4, Erythrocyte Sedimentation Rate 104H, Sodium Level 139, Potassium Level 3.8, Chloride Level 107, Carbon Dioxide Level 26, Anion Gap 6, Blood Urea Nitrogen 12, Creatinine 0.5L, Estimat Glomerular Filtration Rate > 60 , Glucose Level 113H, Calcium Level 7.8L, Phosphorus Level 2.7, Magnesium Level 1.9, Total Bilirubin 0.3, Aspartate Amino Transf (AST/SGOT) 25, Alanine Aminotransferase (ALT/SGPT) 20, Alkaline Phosphatase 95, C-Reactive Protein, Quantitative 4.6H, Total Protein 6.3L, Albumin 1.7L, Globulin 4.6, Albumin/ Globulin Ratio 0.4L 03/14/19 09:05: Vancomycin Level Trough 17.1H Height (Feet): 3 Height (Inches): 6.00 Weight (Pounds): 112 General Appearance: no apparent distress Objective no change Gennaro Cagle MD Mar 14, 2019 10:46
--- NOTE | 2019-03-14 10:51 | Diagnostic Imaging Report ---
Indication: Sepsis, question osteomyelitis Technique: XRAY Femur 2v L Comparison: None FINDINGS/IMPRESSION: The patient is status post [id number] amputation on the left. There are multiple surgical clips projecting over the left residual thigh and left inguinal region. Vascular stents also noted in the region of the left iliac vessels. No definite focal osteopenia or bony erosion noted to suggest acute osteomyelitis. Consider more sensitive evaluation with MRI as clinically indicated. Soft tissue swelling with possible ulceration suggested laterally. Correlation with physical exam recommended. No subcutaneous gas identified.
--- NOTE | 2019-03-14 11:31 | NUR ---
NURSE NOTES: Donte Mcarthur number given to Dr. Dickson regarding patient code status, .
[2019-03-14] MEDS ORDERED: Glycopyrrolate 0.2mg/ml 1ml Vial IV PRN ×2 (11:45→17:21)
[2019-03-14] MEDS ORDERED: Morphine Sulfate 10mg/5ml Oral Soln ud ORAL PRN (11:45)
[2019-03-14] MEDS ORDERED: Haloperidol 1mg tab ORAL PRN ×2 (11:45→17:21)
--- NOTE | 2019-03-14 11:45 | NUR ---
SS note Family meeting with Dr Dickson and partner/POA via phone regarding current status, prognosis and plan; partner plan to discuss with patients sister and will contact this SW regarding plans regarding code status. POA/Significant other explains she does not want patient to suffer any more, but wanting his sister to be involved with the decision making as well. SW to follow.
--- NOTE | 2019-03-14 11:47 | General Progress Note ---
Progress Note Progress Note Earlier today, our social insurance analyst talked to Ana Maria, . she talked to patient's sister as well. Both agreed on comfort care and dignified dying. We will stop the levophed drip and if he remains stable he will be hospice care and transferred back to [facility]. Jaylin Dickson MD Mar 14, 2019 11:47
--- NOTE | 2019-03-14 11:55 | NUR ---
NURSE NOTES: Dr. Dickson ordered per telephone to place order for DNR and place patient on comfort care.
--- NOTE | 2019-03-14 12:54 | NUR ---
NURSE NOTES: Dr. Stout called and informed MD that patient made comfort care by Dr. Dickson after he spoke with family. Dr. Stout acknowledged. No further orders made.
[2019-03-14] MEDS ORDERED: Midodrine 10mg tab ORAL SCH (13:00)
--- NOTE | 2019-03-14 13:34 | NUR ---
SS note This Sw followed up with Significant other, Donte @[phone] who explains she wants full code at this time, that she is not ready to make a decision to change patients code status at this time. Dr. Dickson informed.
--- NOTE | 2019-03-14 13:37 | NUR ---
NURSE NOTES: Patient HR is 102-103 with BP at 66/42, saturating at 99% on room air and RR of 20, patient is able to track staff, moans to make some needs known and is able to use left upper arms to gesture, no pain indicated at this time. awakes with light touch or when name is called. Dr. Dickson is reviewing medication list.
--- NOTE | 2019-03-14 13:54 | NUR ---
*-* INSURANCE *-* ALL CLINICALS AND REVIEWS HAVE BEEN FAXED TO: [employer] P: [phone] F: [phone] & [employer] P: [phone] F: [phone] Addendum: 03/17/19 at 0939 by LUIS HILLS CM [employer] P: [phone] F: [phone]
[2019-03-14] MEDS ORDERED: Morphine Sulfate 10mg/ml Inj IVP PRN ×2 (14:15→17:21)
--- NOTE | 2019-03-14 14:43 | NUR ---
NURSE NOTES: Dr. Marshall in facility, saw and assessed patient, aware of patient's order for comfort care. No orders made.
--- NOTE | 2019-03-14 14:52 | Internal Med Progress Note ---
Subjective Physician Name Yannick Marshall Attending Physician Yannick Marshall MD Current Medications Medications (Trade) Dose Ordered Sig/Jennifer Route PRN Reason Start Time Stop Time Status Last Admin Dose Admin Acetaminophen (Tylenol) 650 mg Q4H PRN ORAL fever 03/07/19 11:30 04/06/19 07:29 03/09/19 08:10 Atropine Sulfate (Atropine Opth Tosha) 1 drop Q2H PRN SL excessive secretions 03/14/19 11:45 04/13/19 11:44 Chlorhexidine Gluconate (Rani-Hex 2%) 1 applic DAILY@1999 TOPIC 03/07/19 20:00 04/06/19 19:59 03/13/19 19:47 Glycopyrrolate (Robinul) 0.1 mg Q6H PRN IV excessive secretions 03/14/19 11:45 04/13/19 11:44 Haloperidol (Haldol) 1 mg Q30MIN PRN ORAL Agitation 03/14/19 11:45 04/13/19 11:44 Lorazepam (Ativan 2mg/ml 1ml) 2 mg Q4H PRN IV For Anxiety/seizure 03/11/19 16:30 03/18/19 16:29 Morphine Sulfate (Morphine Sulfate) 10 mg Q4H PRN IVP tachypnea> 20 and dyspnea 03/14/19 14:15 03/21/19 14:14 Ondansetron HCl (Zofran) 4 mg Q6H PRN IVP Nausea & Vomiting 03/07/19 09:00 04/06/19 08:59 Allergies: Coded Allergies: No Known Allergies (Unverified , 03/07/19) Subjective awake, responsive, in ICU, hypotensive Objective Last Vital Signs Date Time Temp Pulse Resp B/P (MAP) Pulse Ox O2 Delivery O2 Flow Rate FiO2 03/14/19 13:00 94 31 69/36 99 Room Air 03/14/19 12:00 99.1 03/13/19 07:03 21 03/12/19 12:45 2.0 Laboratory Tests Test 03/14/19 04:00 03/14/19 09:05 White Blood Count 9.7 K/UL (4.8-10.8) Red Blood Count 3.74 M/UL (4.70-6.10) L Hemoglobin 10.8 G/DL (14.2-18.0) L Hematocrit 33.5 % (42.0-52.0) L Mean Corpuscular Volume 90 FL (80-99) Mean Corpuscular Hemoglobin 28.8 PG (27.0-31.0) Mean Corpuscular Hemoglobin Concent 32.1 G/DL (32.0-36.0) Red Cell Distribution Width 14.4 % (11.6-14.8) Platelet Count 259 K/UL (150-450) Mean Platelet Volume 6.3 FL (6.5-10.1) L Neutrophils (%) (Auto) 50.3 % (45.0-75.0) Lymphocytes (%) (Auto) 42.2 % (20.0-45.0) Monocytes (%) (Auto) 5.8 % (1.0-10.0) Eosinophils (%) (Auto) 1.3 % (0.0-3.0) Basophils (%) (Auto) 0.4 % (0.0-2.0) Erythrocyte Sedimentation Rate 104 MM/HR (0-20) H Sodium Level 139 MMOL/L (136-145) Potassium Level 3.8 MMOL/L (3.5-5.1) Chloride Level 107 MMOL/L (98-107) Carbon Dioxide Level 26 MMOL/L (21-32) Anion Gap 6 mmol/L (5-15) Blood Urea Nitrogen 12 mg/dL (7-18) Creatinine 0.5 MG/DL (0.55-1.30) L Estimat Glomerular Filtration Rate > 60 mL/min (>60) Glucose Level 113 MG/DL (74-106) H Calcium Level 7.8 MG/DL (8.5-10.1) L Phosphorus Level 2.7 MG/DL (2.5-4.9) Magnesium Level 1.9 MG/DL (1.8-2.4) Total Bilirubin 0.3 MG/DL (0.2-1.0) Aspartate Amino Transf (AST/SGOT) 25 U/L (15-37) Alanine Aminotransferase (ALT/SGPT) 20 U/L (12-78) Alkaline Phosphatase 95 U/L (46-116) C-Reactive Protein, Quantitative 4.6 mg/dL (0.00-0.90) H Total Protein 6.3 G/DL (6.4-8.2) L Albumin 1.7 G/DL (3.4-5.0) L Globulin 4.6 g/dL Albumin/Globulin Ratio 0.4 (1.0-2.7) L Vancomycin Level Trough 17.1 ug/mL (5.0-12.0) H Intake and Output 03/13/19 03/14/19 18:59 06:59 Intake Total 1406.4940 ml 1425.5 ml Output Total 1610 ml 1730 ml Balance -203.5060 ml -304.5 ml Free Water 180 ml 100 ml IV Total 576.4940 ml 725.5 ml Tube Feeding 600 ml 600 ml Other 50 ml Output Urine Total 1610 ml 1730 ml # Bowel Movements 1 Objective GENERAL: awake, opens his eyes, cachectic, malnutrition. HEAD AND NECK: Pupils are equal and reactive to light. Anicteric. Neck was supple. No JVD. LUNGS: CTA. No wheezing or rales. Decreased air in bases. CHEST WALL: Right side TLC. HEART: S1, S2. RR. No murmur or gallops. ABDOMEN: Soft, nondistended, and nontender. Positive bowel sounds. G-tube is in place. RECTAL/GENITOURINARY: The patient has a Pelayo catheter. EXTREMITIES: Bilateral AKA was noted with stump intact. NEUROLOGIC: Limited secondary to the patient's status. The patient is moving the left upper extremity. Right upper extremity is flaccid. GENETIC ENGINEER II through XII grossly intact, but it is very hard to follow. Neurologic examination is very limited secondary to the patient's status. Assessment/Plan Assessment/Plan ASSESSMENT: 1. Sepsis, septic shock most likely secondary to the urinary tract infection. 2. Acute kidney injury on chronic renal insufficiency due to severe dehydration. 3. Urinary tract infection. 4. Hypertension, presently hypotensive. 5. History of CVA. 6. Dysphagia, status post PEG. 7. Diabetes type 2. 8. Status post bilateral AKA. 9. Advanced dementia. 10. History of stroke with right-sided hemiparesis. PLAN: In ICU. Follow up with Labs and cultures. Off abx Weaning off the pressor. Code status: DNR G-tube feeding. DC planning to SNF with comfort care. Yannick Marshall MD Mar 14, 2019 14:52
--- NOTE | 2019-03-14 15:50 | Infectious Diseases Prog Note ---
Assessment/Plan Assessment/Plan Assessment: Septic shock- likely 2ry to UTI and PNA Gram positive bacteremia- r/o contaminant vs real -03/08 CXR: Mildly worsening patchy consolidation throughout the left upper and lower lungs compared to the prior exam, concerning for pneumonia. Persistent mild elevation of the left hemidiaphragm. Cannot exclude small layering left pleural effusion. -u/a wbc tnct, nti neg, leuk +3; ucx >100k P. mirabilis (S Zosyn, Ceftriaxone ; R Cipro) -03/07 Bcx Neg; 03/11 05/31 GPC clusters -sp cx MRSA, christine albicans -CXR: There is volume loss at the left lung base again noted unchanged. Left hemidiaphragm is elevated. -2d Echo: no vegetations Low grade fever, SP Leukocytosis, recurrent, increased L stump ulcer -wound cx NTD JESUS, SP hx of UTI 11/2018, sp Rx --u/a wbc tnct, nit+, leuk +3; ucx >100k P. mirabilis (S Ceftriaxone, Ertapenem, Zosyn) HTN CVA dysphagia s/p GT Dm2 b/l AKA non verbal advanced dementia PVD NH resident Plan: -Patient made comfort care, all antibiotics were discontinued -03/14 SP IV Vancomycin #8, Meropenem #4 -03/12 SP IV AMikacin #6 -03/11 SP Ertapenem #5 -03/07 SP Zosyn x1 -/ SP Ceftriaxone #3 -12/25 SP IV Vancomycin #3, Cefepime #3 -12/23 SP Flagyl #1 ID will sign off now. Please call back if needed. Subjective Allergies: Coded Allergies: No Known Allergies (Unverified , 03/07/19) Subjective patient now made comfort care all antibiotics were discontinued Objective Vital Signs Last 24 Hour Vital Signs Date Time Temp Pulse Resp B/P (MAP) Pulse Ox O2 Delivery O2 Flow Rate FiO2 03/14/19 15:00 94 28 72/44 98 Room Air 03/14/19 14:00 95 28 95/48 99 Room Air 03/14/19 13:00 94 31 69/36 99 Room Air 03/14/19 12:30 90 28 90/52 99 Room Air 03/14/19 12:00 99.1 88 30 98/54 99 Room Air 03/14/19 12:00 88 03/14/19 12:00 Room Air 03/14/19 11:30 95/55 03/14/19 11:30 91 25 95/55 98 Room Air 03/14/19 11:00 87 25 95/52 98 Room Air 03/14/19 11:00 91/53 03/14/19 10:30 87 25 93/54 98 Room Air 03/14/19 10:30 93/54 03/14/19 10:00 89 29 91/53 98 Room Air 03/14/19 10:00 96/56 03/14/19 09:30 89 25 102/50 98 Room Air 03/14/19 09:00 94 31 96/54 99 Room Air 03/14/19 09:00 103/56 03/14/19 08:30 89 30 94/52 99 Room Air 03/14/19 08:00 99.1 88 29 102/53 99 Room Air 03/14/19 08:00 98/53 03/14/19 08:00 83 03/14/19 08:00 Room Air 03/14/19 07:30 85 28 103/55 99 Room Air 03/14/19 07:00 90 30 97/54 99 Room Air 03/14/19 07:00 97/54 03/14/19 06:30 91 24 84/50 98 Room Air 03/14/19 06:00 96/56 03/14/19 06:00 87 28 96/56 99 Room Air 03/14/19 05:30 86 29 105/56 99 Room Air 03/14/19 05:00 88/53 03/14/19 05:00 92 28 88/53 99 Room Air 03/14/19 04:30 84 28 100/55 99 Room Air 03/14/19 04:02 84/56 03/14/19 04:00 98.8 89 27 84/56 99 Room Air 03/14/19 04:00 84/56 03/14/19 04:00 Room Air 03/14/19 03:30 90 30 84/47 98 Room Air 18/ 03:14 92 10 03:00 103/50 03/14/ 03:00 83 28 103/50 97 Room Air 03/14/ 02:30 88 27 97/48 97 Room Air 03/14/19 02:00 83 26 90/48 98 Room Air 18 02:00 90/48 03/14/19 01:30 85 28 99/51 97 Room Air 18 01:00 82 28 96/50 99 Room Air 18/ 01:00 96/50 03/14/19 00:30 69 23 111/47 96 Room Air 03/14/19 00:00 90/52 03/14/19 00:00 Room Air 03/14/19 00:00 97.8 89 26 90/52 97 Room Air 03/13/19 23:30 86 27 100/48 97 Room Air 03/13/19 23:27 88 03/13/19 23:00 84 29 100/55 97 Room Air 03/13/19 23:00 100/55 03/13/19 22:45 89 27 95/50 97 Room Air 03/13/19 22:30 87 27 108/54 97 Room Air 03/13/19 22:00 89 29 104/50 96 Room Air 03/13/19 22:00 104/50 03/13/19 21:30 87 26 104/52 99 Room Air 03/13/19 21:00 86 29 104/54 98 Room Air 03/13/19 21:00 104/54 03/13/19 20:35 91 28 92/48 98 Room Air 03/13/19 20:34 63/42 03/13/19 20:30 90 27 63/42 98 Room Air 03/13/19 20:00 Room Air 03/13/19 20:00 85/49 03/13/19 20:00 98.7 93 29 85/49 98 Room Air 03/13/19 19:37 88 03/13/19 19:30 78 28 88/44 99 Room Air 17/19 19:00 77 27 105/41 98 Room Air 17/19 19:00 105/41 17/19 18:45 76 28 95/51 99 Room Air 17/19 18:30 88/52 17/19 18:30 80 27 85/58 98 Room Air 17/19 18:00 88 27 91/47 97 Room Air 17/19 18:00 91/47 17/19 17:30 85 27 110/58 98 Room Air 10/17/19 17:00 91 33 98/51 97 Room Air 03/13/19 17:00 98/51 03/13/19 16:30 78 25 86/66 97 Room Air 03/13/19 16:30 86/66 03/13/19 16:00 Room Air 03/13/19 16:00 99.1 76 29 97/50 98 Room Air 03/13/19 16:00 95/49 03/13/19 16:00 77 Height (Feet): 3 Height (Inches): 6.00 Weight (Pounds): 112 Objective General Appearance: moderate distress - Appears diaphoretic and is tachycardic Head: normocephalic, atraumatic Eyes: bilateral eye PERRL, bilateral eye EOMI ENT: dry mucus membranes Neck: supple Respiratory: no retraction, no accessory muscle use, crackles - Bilaterally Cardiovascular: tachycardia Gastrointestinal: non tender, soft, other - Feeding tube in place Musculoskeletal: other - Bilateral [id number] amputations does not follow commands, right upper extremity paralysis Neurologic: other - Patient has eyes open however does not follow commands is not verbal Psychiatric: normal inspection Skin: other - Scars formations bilateral femoral area Laboratory Tests Test 03/14/19 04:00 03/14/19 09:05 White Blood Count 9.7 K/UL (4.8-10.8) Red Blood Count 3.74 M/UL (4.70-6.10) L Hemoglobin 10.8 G/DL (14.2-18.0) L Hematocrit 33.5 % (42.0-52.0) L Mean Corpuscular Volume 90 FL (80-99) Mean Corpuscular Hemoglobin 28.8 PG (27.0-31.0) Mean Corpuscular Hemoglobin Concent 32.1 G/DL (32.0-36.0) Red Cell Distribution Width 14.4 % (11.6-14.8) Platelet Count 259 K/UL (150-450) Mean Platelet Volume 6.3 FL (6.5-10.1) L Neutrophils (%) (Auto) 50.3 % (45.0-75.0) Lymphocytes (%) (Auto) 42.2 % (20.0-45.0) Monocytes (%) (Auto) 5.8 % (1.0-10.0) Eosinophils (%) (Auto) 1.3 % (0.0-3.0) Basophils (%) (Auto) 0.4 % (0.0-2.0) Erythrocyte Sedimentation Rate 104 MM/HR (0-20) H Sodium Level 139 MMOL/L (136-145) Potassium Level 3.8 MMOL/L (3.5-5.1) Chloride Level 107 MMOL/L (98-107) Carbon Dioxide Level 26 MMOL/L (21-32) Anion Gap 6 mmol/L (5-15) Blood Urea Nitrogen 12 mg/dL (7-18) Creatinine 0.5 MG/DL (0.55-1.30) L Estimat Glomerular Filtration Rate > 60 mL/min (>60) Glucose Level 113 MG/DL (74-106) H Calcium Level 7.8 MG/DL (8.5-10.1) L Phosphorus Level 2.7 MG/DL (2.5-4.9) Magnesium Level 1.9 MG/DL (1.8-2.4) Total Bilirubin 0.3 MG/DL (0.2-1.0) Aspartate Amino Transf (AST/SGOT) 25 U/L (15-37) Alanine Aminotransferase (ALT/SGPT) 20 U/L (12-78) Alkaline Phosphatase 95 U/L (46-116) C-Reactive Protein, Quantitative 4.6 mg/dL (0.00-0.90) H Total Protein 6.3 G/DL (6.4-8.2) L Albumin 1.7 G/DL (3.4-5.0) L Globulin 4.6 g/dL Albumin/Globulin Ratio 0.4 (1.0-2.7) L Vancomycin Level Trough 17.1 ug/mL (5.0-12.0) H Current Medications Medications (Trade) Dose Ordered Sig/Jennifer Route PRN Reason Start Time Stop Time Status Last Admin Dose Admin Acetaminophen (Tylenol) 650 mg Q4H PRN ORAL fever 03/07/19 11:30 04/06/19 07:29 03/09/19 08:10 Atropine Sulfate (Atropine Opth Tosha) 1 drop Q2H PRN SL excessive secretions 03/14/19 11:45 04/13/19 11:44 Chlorhexidine Gluconate (Rani-Hex 2%) 1 applic DAILY@1999 TOPIC 03/07/19 20:00 04/06/19 19:59 03/13/19 19:47 Glycopyrrolate (Robinul) 0.1 mg Q6H PRN IV excessive secretions 03/14/19 11:45 04/13/19 11:44 Haloperidol (Haldol) 1 mg Q30MIN PRN ORAL Agitation 03/14/19 11:45 04/13/19 11:44 Lorazepam (Ativan 2mg/ml 1ml) 2 mg Q4H PRN IV For Anxiety/seizure 03/11/19 16:30 03/18/19 16:29 Morphine Sulfate (Morphine Sulfate) 10 mg Q4H PRN IVP tachypnea> 20 and dyspnea 03/14/19 14:15 03/21/19 14:14 Ondansetron HCl (Zofran) 4 mg Q6H PRN IVP Nausea & Vomiting 03/07/19 09:00 04/06/19 08:59 Deepti Connolly M.D. Mar 14, 2019 15:50
--- NOTE | 2019-03-14 16:43 | NUR ---
CASE MANAGEMENT:REVIEW 03/14/19 SI: SEPSIS. UTI. PNA 98.3 97 28 75/44 98% ON RA ESR+104 IS: IV ROBINUL Q6HRS PRN : ICU STATUS DCP; FROM [facility]
--- NOTE | 2019-03-14 17:00 | NUR ---
TRANSFER TO FLOOR: Patient transferred to [facility]-, per Dr. Dickson. Report given to SARAH Felix. Patient has no belongings or medication while transfering, Next of kin hollie made aware of patient transfer to floor.
--- NOTE | 2019-03-14 17:20 | NUR ---
NURSE NOTES: RECEIVED PATIENT A/A/OX1, OPEN EYES SPONTANEOUSLY. NONVERBAL. RESPOND TO TACTILE STIMULI. NO PERSONAL BELONGINGS NOTED. RIGHT SUBCLAVIAN TLC PATENT AND INTACT. NO ACUTE RESP DISTRESS NOTED. PHOTO TAKEN ON LEFT STUMP WOUND. TREATED. PATIENT ON COMFORT MEASURES ONLY PER MD ORDER. KEEP HOB ELEVATED. CALM AND COMFORTABLE. SIDERAILS ARE UP X3, CALL LIGHT IS WITHIN REACH. BED IS IN THE LOWEST POSITION. WILL CONT TO MONITOR.
[2019-03-14] MEDS ORDERED: LORazepam Inj 2mg/ml 1ml IV PRN (17:21)
--- NOTE | 2019-03-14 19:18 | NUR ---
HAND-OFF: Report given to Ivonne.
--- NOTE | 2019-03-14 19:41 | NUR ---
NURSE NOTES: Pt received in bed able to follow me with his eyes when I speak to him, muro draining, comfort measures, will monitor and keep comfortable.
[2019-03-14] MEDS: Dyna-Hex 2% Top Sol 2oz TOPIC SCH (20:02)
[2019-03-15 06:22] LABS: BASOPHILS % (AUTO) 0.5 % (0.0-2.0); EOSINOPHILS % (AUTO) 0.8 % (0.0-3.0); HEMATOCRIT 31.7 % (42.0-52.0); HEMOGLOBIN 10.2 G/DL (14.2-18.0); LYMPHOCYTES % (AUTO) 45.4 % (20.0-45.0); MEAN CORPUSCULAR VOLUME 90 FL (80-99); MONOCYTES % (AUTO) 6.4 % (1.0-10.0); NEUTROPHILS % (AUTO) 46.9 % (45.0-75.0); PLATELET COUNT 274 K/UL (150-450); RED BLOOD COUNT 3.54 M/UL (4.70-6.10); RED CELL DISTRIBUTION WIDTH 14.4 % (11.6-14.8)
[2019-03-15 06:52] LABS: ALANINE AMINOTRANSFERASE 22 U/L (12-78); ALBUMIN 1.8 G/DL (3.4-5.0); ALBUMIN/GLOBULIN RATIO 0.4 (1.0-2.7); ALKALINE PHOSPHATASE 86 U/L (46-116); ANION GAP 9 mmol/L (5-15); ASPARTATE AMINO TRANSFERASE 23 U/L (15-37); BILIRUBIN,TOTAL 0.4 MG/DL (0.2-1.0); BLOOD UREA NITROGEN 15 mg/dL (7-18); CALCIUM 8.4 MG/DL (8.5-10.1); CARBON DIOXIDE 24 MMOL/L (21-32); CHLORIDE 109 MMOL/L (98-107); CREATININE 0.4 MG/DL (0.55-1.30); PHOSPHORUS 3.3 MG/DL (2.5-4.9); POTASSIUM 3.1 MMOL/L (3.5-5.1); SODIUM 142 MMOL/L (136-145)
--- NOTE | 2019-03-15 07:45 | NUR ---
HAND-OFF: Report given to SARAH Blackburn/Kaylah Blackburn RN.
--- NOTE | 2019-03-15 07:50 | NUR ---
NURSE NOTES: Received report from SARAH Coronado. Pt is awake but nonverbal, able to express pain with thumb or by nodding. No complaints of pain at the moment. Pelayo in place and draining. Bed locked in lowest position with bed alarm on, side rails up, call light within reach.
[2019-03-15 08:00] VITALS: BP 87/55
--- NOTE | 2019-03-15 08:24 | NUR ---
NURSE NOTES: PER TIPPLE ENGINEER'S NOTES, PT'S SIGNIFICANT OTHER HAYDEE WISHES FOR PT TO BE FULL CODE STATUS. RN SPOKE TO DR VARELA AND NEW ORDERS TO CHANGE TO FULL CODE AND RESTART GTUBE FEEDING.
--- NOTE | 2019-03-15 08:43 | Pulmonology Progress Note ---
Assessment/Plan Problems: (1) Nosocomial pneumonia (2) Feeding by G-tube (3) Alzheimer's dementia (4) Decubitus skin ulcer (5) S/P AKA (above knee amputation) bilateral (6) ATN (acute tubular necrosis) (7) Dehydration (8) CVA (cerebral vascular accident) Assessment/Plan continue current treatment Pt's sister wants DNR and pt stated in paper that he doesn't want his life to be prolonged. But pt's intermediate riding instructor initially agreed with comfort care and hospice then changed her mind. aspiration precaution check electrolytes continue wound care. dvt prophylaxis. Subjective ROS Limited/Unobtainable: No Constitutional: Reports: no symptoms HEENT: Repors: no symptoms Respiratory: Reports: no symptoms Allergies: Coded Allergies: No Known Allergies (Unverified , 03/07/19) Objective Last 24 Hour Vital Signs Date Time Temp Pulse Resp B/P (MAP) Pulse Ox O2 Delivery O2 Flow Rate FiO2 03/15/19 08:00 97.2 83 18 87/55 (66) 94 03/14/19 20:00 Room Air 03/14/19 17:16 99.3 101 28 74/44 94 Room Air 03/14/19 16:00 93 03/14/19 16:00 98.3 97 28 75/44 98 Room Air 03/14/19 16:00 Room Air 03/14/19 15:00 94 28 72/44 98 Room Air 03/14/19 14:00 95 28 95/48 99 Room Air 03/14/19 13:00 94 31 69/36 99 Room Air 03/14/19 12:30 90 28 90/52 99 Room Air 03/14/19 12:00 99.1 88 30 98/54 99 Room Air 03/14/19 12:00 88 03/14/19 12:00 Room Air 03/14/19 11:30 95/55 03/14/19 11:30 91 25 95/55 98 Room Air 03/14/19 11:00 87 25 95/52 98 Room Air 03/14/19 11:00 91/53 03/14/19 10:30 87 25 93/54 98 Room Air 03/14/19 10:30 93/54 03/14/19 10:00 89 29 91/53 98 Room Air 03/14/19 10:00 96/56 03/14/19 09:30 89 25 102/50 98 Room Air 03/14/19 09:00 94 31 96/54 99 Room Air 03/14/19 09:00 103/56 Intake and Output 03/14/19 03/15/19 19:00 07:00 Intake Total 940.5 ml Output Total 1035 ml Balance -94.5 ml Free Water 100 ml IV Total 390.5 ml Tube Feeding 400 ml Other 50 ml Output Urine Total 1035 ml General Appearance: WD/WN HEENT: normocephalic, atraumatic Respiratory/Chest: chest wall non-tender, lungs clear Cardiovascular: normal peripheral pulses, normal rate Abdomen: normal bowel sounds, no organomegaly Extremities: no cyanosis Skin: no rash Microbiology Date/Time Source Procedure Growth Status 03/13/19 13:00 Blood Blood Culture - Preliminary NO GROWTH AFTER 24 HOURS Resulted 03/13/19 12:40 Blood Blood Culture - Preliminary NO GROWTH AFTER 24 HOURS Resulted Laboratory Tests 03/14/19 09:05: Vancomycin Level Trough 17.1H 03/15/19 05:30: White Blood Count 9.0, Red Blood Count 3.54L, Hemoglobin 10.2L, Hematocrit 31.7L , Mean Corpuscular Volume 90, Mean Corpuscular Hemoglobin 28.7, Mean Corpuscular Hemoglobin Concent 32.0, Red Cell Distribution Width 14.4, Platelet Count 274, Mean Platelet Volume 5.9L, Neutrophils (%) (Auto) 46.9, Lymphocytes ( %) (Auto) 45.4H, Monocytes (%) (Auto) 6.4, Eosinophils (%) (Auto) 0.8, Basophils (%) (Auto) 0.5, Sodium Level 142, Potassium Level 3.1L, Chloride Level 109H, Carbon Dioxide Level 24, Anion Gap 9, Blood Urea Nitrogen 15, Creatinine 0.4L, Estimat Glomerular Filtration Rate > 60, Glucose Level 74, Calcium Level 8.4L, Phosphorus Level 3.3, Magnesium Level 2.2, Total Bilirubin 0.4, Aspartate Amino Transf (AST/SGOT) 23, Alanine Aminotransferase (ALT/SGPT) 22, Alkaline Phosphatase 86, Total Protein 6.5, Albumin 1.8L, Globulin 4.7, Albumin/Globulin Ratio 0.4L Current Medications Medications (Trade) Dose Ordered Sig/Jennifer Route PRN Reason Start Time Stop Time Status Last Admin Dose Admin Acetaminophen (Tylenol) 650 mg Q4H PRN ORAL fever 03/14/19 17:20 04/13/19 17:19 Atropine Sulfate (Atropine Opth Tosha) 1 drop Q2H PRN SL excessive secretions 03/14/19 17:30 04/13/19 17:29 Chlorhexidine Gluconate (Rani-Hex 2%) 1 applic DAILY@2000 TOPIC 03/14/19 20:00 04/06/19 19:59 03/14/19 20:02 Glycopyrrolate (Robinul) 0.1 mg Q6H PRN IV excessive secretions 03/14/19 17:21 04/13/19 17:20 Haloperidol (Haldol) 1 mg Q30M PRN ORAL Agitation 03/14/19 17:21 04/13/19 17:20 Lorazepam (Ativan 2mg/ml 1ml) 2 mg Q4H PRN IV For Anxiety/seizure 03/14/19 17:21 03/21/19 17:20 Morphine Sulfate (Morphine Sulfate) 10 mg Q4H PRN IVP tachypnea> 20 and dyspnea 03/14/19 17:21 03/21/19 17:20 Ondansetron HCl (Zofran) 4 mg Q6H PRN IVP Nausea & Vomiting 03/14/19 17:21 04/13/19 17:20 Jaylin Dickson MD Mar 15, 2019 08:43
--- NOTE | 2019-03-15 09:19 | NUR ---
NURSE NOTES: RN MADE DR VARELA AWARE OF BP 87/55, PULSE 83 WITH RECOMMENDATION FOR IV FLUIDS OR BOLUS FLUIDS. PER DR VARELA, NO NEW ORDERS FOR FLUIDS, JUST RESUME TUBE FEEDING. CRN MADE AWARE. PT IN NO APPARENT DISTRESS AT THIS TIME, NO SOB, DENIES PAIN. WILL CONTINUE TO MONITOR.
--- NOTE | 2019-03-15 11:30 | NUR ---
NURSE NOTES: RN made Dr. Dickson aware about pt's K+ 3.1. Received order for KCl 40 mEq GT x 1. RN will follow.
[2019-03-15 11:49] VITALS: BP 89/56
--- NOTE | 2019-03-15 13:37 | Internal Med Progress Note ---
Subjective Date of Service: Mar 15, 2019 Physician Name Darrick Stout Attending Physician Yannick Marshall MD Current Medications Medications (Trade) Dose Ordered Sig/Jennifer Route PRN Reason Start Time Stop Time Status Last Admin Dose Admin Acetaminophen (Tylenol) 650 mg Q4H PRN ORAL fever 03/14/19 17:20 04/13/19 17:19 Atropine Sulfate (Atropine Opth Tosha) 1 drop Q2H PRN SL excessive secretions 03/14/19 17:30 04/13/19 17:29 Chlorhexidine Gluconate (Rani-Hex 2%) 1 applic DAILY@1999 TOPIC 03/14/19 20:00 04/06/19 19:59 03/14/19 20:02 Glycopyrrolate (Robinul) 0.1 mg Q6H PRN IV excessive secretions 03/14/19 17:21 04/13/19 17:20 Haloperidol (Haldol) 1 mg Q30M PRN ORAL Agitation 03/14/19 17:21 04/13/19 17:20 Lorazepam (Ativan 2mg/ml 1ml) 2 mg Q4H PRN IV For Anxiety/seizure 03/14/19 17:21 03/21/19 17:20 Morphine Sulfate (Morphine Sulfate) 10 mg Q4H PRN IVP tachypnea> 20 and dyspnea 03/14/19 17:21 03/21/19 17:20 Ondansetron HCl (Zofran) 4 mg Q6H PRN IVP Nausea & Vomiting 03/14/19 17:21 04/13/19 17:20 Potassium Chloride (K-Dur) 40 meq ONCE GT 03/15/19 12:00 03/15/19 14:00 03/15/19 12:43 Allergies: Coded Allergies: No Known Allergies (Unverified , 03/07/19) ROS Limited/Unobtainable: Yes Subjective 68 YO M admitted with hypotension. Now sepsis. Cover for Int Med-Dr Marshall. Comfort care Objective Last Vital Signs Date Time Temp Pulse Resp B/P (MAP) Pulse Ox O2 Delivery O2 Flow Rate FiO2 03/15/19 11:49 96.4 93 16 89/56 (67) 93 03/14/19 20:00 Room Air 03/13/19 07:03 21 03/12/19 12:45 2.0 Laboratory Tests Test 03/15/19 05:30 White Blood Count 9.0 K/UL (4.8-10.8) Red Blood Count 3.54 M/UL (4.70-6.10) L Hemoglobin 10.2 G/DL (14.2-18.0) L Hematocrit 31.7 % (42.0-52.0) L Mean Corpuscular Volume 90 FL (80-99) Mean Corpuscular Hemoglobin 28.7 PG (27.0-31.0) Mean Corpuscular Hemoglobin Concent 32.0 G/DL (32.0-36.0) Red Cell Distribution Width 14.4 % (11.6-14.8) Platelet Count 274 K/UL (150-450) Mean Platelet Volume 5.9 FL (6.5-10.1) L Neutrophils (%) (Auto) 46.9 % (45.0-75.0) Lymphocytes (%) (Auto) 45.4 % (20.0-45.0) H Monocytes (%) (Auto) 6.4 % (1.0-10.0) Eosinophils (%) (Auto) 0.8 % (0.0-3.0) Basophils (%) (Auto) 0.5 % (0.0-2.0) Sodium Level 142 MMOL/L (136-145) Potassium Level 3.1 MMOL/L (3.5-5.1) L Chloride Level 109 MMOL/L (98-107) H Carbon Dioxide Level 24 MMOL/L (21-32) Anion Gap 9 mmol/L (5-15) Blood Urea Nitrogen 15 mg/dL (7-18) Creatinine 0.4 MG/DL (0.55-1.30) L Estimat Glomerular Filtration Rate > 60 mL/min (>60) Glucose Level 74 MG/DL (74-106) Calcium Level 8.4 MG/DL (8.5-10.1) L Phosphorus Level 3.3 MG/DL (2.5-4.9) Magnesium Level 2.2 MG/DL (1.8-2.4) Total Bilirubin 0.4 MG/DL (0.2-1.0) Aspartate Amino Transf (AST/SGOT) 23 U/L (15-37) Alanine Aminotransferase (ALT/SGPT) 22 U/L (12-78) Alkaline Phosphatase 86 U/L (46-116) Total Protein 6.5 G/DL (6.4-8.2) Albumin 1.8 G/DL (3.4-5.0) L Globulin 4.7 g/dL Albumin/Globulin Ratio 0.4 (1.0-2.7) L Microbiology Date/Time Source Procedure Growth Status 03/13/19 13:00 Blood Blood Culture - Preliminary NO GROWTH AFTER 24 HOURS Resulted 03/13/19 12:40 Blood Blood Culture - Preliminary NO GROWTH AFTER 24 HOURS Resulted Intake and Output 03/14/19 03/15/19 18:59 06:59 Intake Total 1024.5 ml Output Total 1195 ml Balance -170.5 ml Free Water 100 ml IV Total 424.5 ml Tube Feeding 450 ml Other 50 ml Output Urine Total 1195 ml Objective PHYSICAL EXAMINATION: GENERAL: The patient is awake, opens his eyes, cachectic, malnutrition. HEAD AND NECK: Pupils are equal and reactive to light. Anicteric. Neck was supple. No JVD. LUNGS: Clear. No wheezing or rales. Decreased air in bases. Coarse breath sounds. HEART: S1, S2. Tachycardic. No murmur or gallops. ABDOMEN: Soft, nondistended, and nontender. Positive bowel sounds. G-tube is in place. RECTAL/GENITOURINARY: The patient has a Pelayo catheter. EXTREMITIES: Bilateral AKA was noted with stump intact. NEUROLOGIC: Limited secondary to the patient's status. The patient is moving the left upper extremity. Right upper extremity is flaccid. INSTRUMENTAL MUSICIAN II through XII grossly intact, but it is very hard to follow. Neurologic examination is very limited secondary to the patient's status. Assessment/Plan Assessment/Plan ASSESSMENT: 1. Sepsis, septic shock most likely secondary to the urinary tract infection. 2. Acute kidney injury on chronic renal insufficiency due to severe dehydration. 3. Urinary tract infection. 4. Hypertension, presently hypotensive. 5. History of CVA. 6. Dysphagia, status post PEG. 7. Diabetes type 2. 8. Status post bilateral AKA. 9. Advanced dementia. 10. History of stroke with right-sided hemiparesis. 11. Hypernatremia/hypokalemia PLAN: 1. Comfort care 2. Urine culture=Proteus. Continue meropenem and vanco per ID= Dr Connolly Code status at this time is Full Code. Resume skilled nursing medication, G-tube feeding. Darrick Stout MD Mar 15, 2019 13:37
--- NOTE | 2019-03-15 15:47 | Nephrology Progress Note ---
Assessment/Plan Problem List: (1) Renal failure (ARF), acute on chronic (2) Hypernatremia (3) Dehydration (4) Hypokalemia Assessment Acute Renal Failure- ? Underlying CKD Dehydration Sepsis / UTI Dementia PEG s/p CVA s/p Bilateral AKA Decubiti Plan Hypotensive- in med surg . will clarify if patient DNR and comfort care as it appears full code aty this time Subjective ROS Limited/Unobtainable: No Constitutional: Reports: malaise, weakness Objective Objective Last 24 Hour Vital Signs Date Time Temp Pulse Resp B/P (MAP) Pulse Ox O2 Delivery O2 Flow Rate FiO2 03/15/19 11:49 96.4 93 16 89/56 (67) 93 03/15/19 09:00 Room Air 03/15/19 08:00 97.2 83 18 87/55 (66) 94 03/14/19 20:00 Room Air 03/14/19 17:16 99.3 101 28 74/44 94 Room Air 03/14/19 16:00 93 03/14/19 16:00 98.3 97 28 75/44 98 Room Air 03/14/19 16:00 Room Air Intake and Output 03/14/19 03/15/19 19:00 07:00 Intake Total 940.5 ml Output Total 1035 ml Balance -94.5 ml Free Water 100 ml IV Total 390.5 ml Tube Feeding 400 ml Other 50 ml Output Urine Total 1035 ml Current Medications Medications (Trade) Dose Ordered Sig/Jennifer Route PRN Reason Start Time Stop Time Status Last Admin Dose Admin Acetaminophen (Tylenol) 650 mg Q4H PRN ORAL fever 03/14/19 17:20 04/13/19 17:19 Atropine Sulfate (Atropine Opth Tosha) 1 drop Q2H PRN SL excessive secretions 03/14/19 17:30 04/13/19 17:29 Chlorhexidine Gluconate (Rani-Hex 2%) 1 applic DAILY@2000 TOPIC 03/14/19 20:00 04/06/19 19:59 03/14/19 20:02 Glycopyrrolate (Robinul) 0.1 mg Q6H PRN IV excessive secretions 03/14/19 17:21 04/13/19 17:20 Haloperidol (Haldol) 1 mg Q30M PRN ORAL Agitation 03/14/19 17:21 04/13/19 17:20 Lorazepam (Ativan 2mg/ml 1ml) 2 mg Q4H PRN IV For Anxiety/seizure 03/14/19 17:21 03/21/19 17:20 Morphine Sulfate (Morphine Sulfate) 10 mg Q4H PRN IVP tachypnea> 20 and dyspnea 03/14/19 17:21 03/21/19 17:20 Ondansetron HCl (Zofran) 4 mg Q6H PRN IVP Nausea & Vomiting 03/14/19 17:21 04/13/19 17:20 Laboratory Tests 03/15/19 05:30: White Blood Count 9.0, Red Blood Count 3.54L, Hemoglobin 10.2L, Hematocrit 31.7L , Mean Corpuscular Volume 90, Mean Corpuscular Hemoglobin 28.7, Mean Corpuscular Hemoglobin Concent 32.0, Red Cell Distribution Width 14.4, Platelet Count 274, Mean Platelet Volume 5.9L, Neutrophils (%) (Auto) 46.9, Lymphocytes ( %) (Auto) 45.4H, Monocytes (%) (Auto) 6.4, Eosinophils (%) (Auto) 0.8, Basophils (%) (Auto) 0.5, Sodium Level 142, Potassium Level 3.1L, Chloride Level 109H, Carbon Dioxide Level 24, Anion Gap 9, Blood Urea Nitrogen 15, Creatinine 0.4L, Estimat Glomerular Filtration Rate > 60, Glucose Level 74, Calcium Level 8.4L, Phosphorus Level 3.3, Magnesium Level 2.2, Total Bilirubin 0.4, Aspartate Amino Transf (AST/SGOT) 23, Alanine Aminotransferase (ALT/SGPT) 22, Alkaline Phosphatase 86, Total Protein 6.5, Albumin 1.8L, Globulin 4.7, Albumin/Globulin Ratio 0.4L Height (Feet): 3 Height (Inches): 6.00 Weight (Pounds): 142 General Appearance: no apparent distress, lethargic Objective no change Gennaro Cagle MD Mar 15, 2019 15:47
[2019-03-15 16:00] VITALS: BP 84/55
[2019-03-15] MEDS ORDERED: D5W 275ml ONE (16:56)
[2019-03-15] MEDS ORDERED: Tubing IV Secondary IV ONE (16:56)
[2019-03-15] MEDS ORDERED: NS 275ml ONE (16:56)
--- NOTE | 2019-03-15 19:13 | NUR ---
HAND-OFF: Report given to April STRATTON RN.
--- NOTE | 2019-03-15 19:15 | NUR ---
NURSE NOTES: Pt received in bed awake, following me when I spoke to him but nonverbal, gtube feeding running at 30cc/hr will increase later, muro catheter in place draining yellow urine, endorsed to me that pt is full code, will continue to monitor and keep head of bed elevated.
[2019-03-15 20:00] VITALS: BP 78/49
[2019-03-15] MEDS: Dyna-Hex 2% Top Sol 2oz TOPIC SCH (20:17)
--- NOTE | 2019-03-15 22:22 | NUR ---
NURSE NOTES: Left message for Dr. Connolly regarding pt is now full code and no longer comfort measures and the antibiotics were all discontinued.
[2019-03-16] VITALS: BP 88/57
[2019-03-16] MEDS ORDERED: Vancomycin 1gm vial IVPB ONE (00:11)
[2019-03-16] MEDS: Meropenem 1 GM in NS 55 ML IVPB SCH ×3 (00:37→21:10)
[2019-03-16] MEDS: Vancomycin 1 GM in D5W 275 ML IVPB SCH ×2 (01:36→14:41)
[2019-03-16] MEDS ORDERED: Vancomycin 500 MG in D5W 110 ML IV SCH (02:00)
[2019-03-16 04:00] VITALS: BP 93/56
--- NOTE | 2019-03-16 07:25 | NUR ---
HAND-OFF: Report given to SARAH Ortiz.
--- NOTE | 2019-03-16 07:58 | NUR ---
NURSE NOTES Patient awake and alert,respirations unlabored.Patient respond by giving the thumbs up when asking questions.G-tube feedings in progress as ordered.No residual noted at this time.Pelayo catheter is in place and draining clear yellow urine.Dressing to left stump in place.HOB is elevated.Bed alarm is on,call light within reach.
[2019-03-16 08:00] VITALS: BP 94/54
[2019-03-16 12:00] VITALS: BP 84/51
--- NOTE | 2019-03-16 12:20 | Infectious Diseases Prog Note ---
Assessment/Plan Assessment/Plan Assessment: Septic shock, SP- likely 2ry to UTI and PNA Gram positive bacteremia- r/o contaminant vs real -03/08 CXR: Mildly worsening patchy consolidation throughout the left upper and lower lungs compared to the prior exam, concerning for pneumonia. Persistent mild elevation of the left hemidiaphragm. Cannot exclude small layering left pleural effusion. -u/a wbc tnct, nti neg, leuk +3; ucx >100k P. mirabilis (S Zosyn, Ceftriaxone ; R Cipro) -03/07 Bcx Neg; 03/11 05/31 S. epi; 03/13 BCx NTD -sp cx MRSA, christine albicans -CXR: There is volume loss at the left lung base again noted unchanged. Left hemidiaphragm is elevated. -2d Echo: no vegetations Low grade fever, SP Leukocytosis, recurrent, increased L stump ulcer -wound cx Neg -femur xray: The patient is status post [id number] amputation on the left. No definite focal osteopenia or bony erosion noted to suggest acute osteomyelitis. JESUS, SP hx of UTI 11/2018, sp Rx --u/a wbc tnct, nit+, leuk +3; ucx >100k P. mirabilis (S Ceftriaxone, Ertapenem, Zosyn) HTN CVA dysphagia s/p GT Dm2 b/l AKA non verbal advanced dementia PVD [place] resident Plan: -Resumed IV Vancomycin #1 (abx d #9) and Meropenem #1 (abx d #5) given change of goals of care back to full code as per request of patient's significant other -03/14 SP IV Vancomycin #8, Meropenem #4 -03/12 SP IV AMikacin #6 -03/11 SP Ertapenem #5 -03/07 SP Zosyn x1 -/ SP Ceftriaxone #3 -12/25 SP IV Vancomycin #3, Cefepime #3 -12/23 SP Flagyl #1 -f/u cx (Bl) -wound care per hospital protocol -goals of care to be defined Thank you for this consultation. Will continue to follow along with you. Discussed with RN Subjective Allergies: Coded Allergies: No Known Allergies (Unverified , 03/07/19) Subjective comfort care was cancelled and now patient full code per patient's partner request afebrile no leukocytosis antibiotics resumed Objective Vital Signs Last 24 Hour Vital Signs Date Time Temp Pulse Resp B/P (MAP) Pulse Ox O2 Delivery O2 Flow Rate FiO2 03/16/19 09:00 Room Air 03/16/19 08:00 97.9 85 20 94/54 (67) 97 03/16/19 04:00 97.6 85 18 93/56 (68) 95 03/16/19 00:00 97.9 101 20 88/57 (67) 95 03/15/19 21:00 Room Air 03/15/19 20:00 97.2 95 18 78/49 (59) 93 03/15/19 16:00 98.0 85 17 84/55 (65) 98 Height (Feet): 3 Height (Inches): 6.00 Weight (Pounds): 146 Objective General Appearance: moderate distress - Appears diaphoretic and is tachycardic Head: normocephalic, atraumatic Eyes: bilateral eye PERRL, bilateral eye EOMI ENT: dry mucus membranes Neck: supple Respiratory: no retraction, no accessory muscle use, crackles - Bilaterally Cardiovascular: tachycardia Gastrointestinal: non tender, soft, other - Feeding tube in place Musculoskeletal: other - Bilateral [id number] amputations does not follow commands, right upper extremity paralysis Neurologic: other - Patient has eyes open however does not follow commands is not verbal Psychiatric: normal inspection Skin: other - Scars formations bilateral femoral area Microbiology Date/Time Source Procedure Growth Status 03/13/19 13:00 Blood Blood Culture - Preliminary NO GROWTH AFTER 48 HOURS Resulted 03/13/19 12:40 Blood Blood Culture - Preliminary NO GROWTH AFTER 48 HOURS Resulted Current Medications Medications (Trade) Dose Ordered Sig/Jennifer Route PRN Reason Start Time Stop Time Status Last Admin Dose Admin Acetaminophen (Tylenol) 650 mg Q4H PRN ORAL fever 03/14/19 17:20 04/13/19 17:19 Atropine Sulfate (Atropine Opth Tosha) 1 drop Q2H PRN SL excessive secretions 03/14/19 17:30 04/13/19 17:29 Chlorhexidine Gluconate (Rani-Hex 2%) 1 applic DAILY@2000 TOPIC 03/14/19 20:00 04/06/19 19:59 03/15/19 20:17 Glycopyrrolate (Robinul) 0.1 mg Q6H PRN IV excessive secretions 03/14/19 17:21 04/13/19 17:20 Haloperidol (Haldol) 1 mg Q30M PRN ORAL Agitation 03/14/19 17:21 04/13/19 17:20 Lorazepam (Ativan 2mg/ml 1ml) 2 mg Q4H PRN IV For Anxiety/seizure 03/14/19 17:21 03/21/19 17:20 Meropenem 1 gm/ Sodium Chloride 55 ml @ 110 mls/hr Q12HR IVPB 03/16/19 00:00 03/21/19 00:00 03/16/19 09:06 Morphine Sulfate (Morphine Sulfate) 10 mg Q4H PRN IVP tachypnea> 20 and dyspnea 03/14/19 17:21 03/21/19 17:20 Ondansetron HCl (Zofran) 4 mg Q6H PRN IVP Nausea & Vomiting 03/14/19 17:21 04/13/19 17:20 Vancomycin HCl 1 gm/Dextrose 275 ml @ 184 mls/hr Q12H IVPB 03/16/19 02:00 03/21/19 01:59 03/16/19 01:36 Deepti Connolly M.D. Mar 16, 2019 12:20
--- NOTE | 2019-03-16 12:37 | Nephrology Progress Note ---
Assessment/Plan Problem List: (1) Renal failure (ARF), acute on chronic (2) Hypernatremia (3) Dehydration (4) Hypokalemia Assessment Acute Renal Failure- ? Underlying CKD Dehydration Sepsis / UTI Dementia PEG s/p CVA s/p Bilateral AKA Decubiti Plan Hypotensive- in med surg . will clarify if patient DNR and comfort care as it appears full code aty this time meanwhile feeding is resumed Abx resumed will start Midodrin again Subjective ROS Limited/Unobtainable: No Constitutional: Reports: malaise Objective Objective Last 24 Hour Vital Signs Date Time Temp Pulse Resp B/P (MAP) Pulse Ox O2 Delivery O2 Flow Rate FiO2 03/16/19 12:00 98.2 89 18 84/51 (62) 95 03/16/19 09:00 Room Air 03/16/19 08:00 97.9 85 20 94/54 (67) 97 03/16/19 04:00 97.6 85 18 93/56 (68) 95 03/16/19 00:00 97.9 101 20 88/57 (67) 95 03/15/19 21:00 Room Air 03/15/19 20:00 97.2 95 18 78/49 (59) 93 03/15/19 16:00 98.0 85 17 84/55 (65) 98 Intake and Output 03/15/19 03/16/19 19:00 07:00 Intake Total 390 ml 478 ml Balance 390 ml 478 ml Free Water 200 ml IV Total 478 ml Tube Feeding 190 ml Height (Feet): 3 Height (Inches): 6.00 Weight (Pounds): 146 General Appearance: no apparent distress Objective no change Gennaro Cagle MD Mar 16, 2019 12:37
--- NOTE | 2019-03-16 14:25 | Internal Med Progress Note ---
Subjective Date of Service: Mar 16, 2019 Physician Name Darrick Stout Attending Physician Yannick Marshall MD Current Medications Medications (Trade) Dose Ordered Sig/Jennifer Route PRN Reason Start Time Stop Time Status Last Admin Dose Admin Acetaminophen (Tylenol) 650 mg Q4H PRN ORAL fever 03/14/19 17:20 04/13/19 17:19 Atropine Sulfate (Atropine Opth Tosha) 1 drop Q2H PRN SL excessive secretions 03/14/19 17:30 04/13/19 17:29 Chlorhexidine Gluconate (Rani-Hex 2%) 1 applic DAILY@2000 TOPIC 03/14/19 20:00 04/06/19 19:59 03/15/19 20:17 Glycopyrrolate (Robinul) 0.1 mg Q6H PRN IV excessive secretions 03/14/19 17:21 04/13/19 17:20 Haloperidol (Haldol) 1 mg Q30M PRN ORAL Agitation 03/14/19 17:21 04/13/19 17:20 Lorazepam (Ativan 2mg/ml 1ml) 2 mg Q4H PRN IV For Anxiety/seizure 03/14/19 17:21 03/21/19 17:20 Meropenem 1 gm/ Sodium Chloride 55 ml @ 110 mls/hr Q12HR IVPB 03/16/19 00:00 03/21/19 00:00 03/16/19 09:06 Midodrine (Pro-Amatine) 2.5 mg Q6HR GT 03/16/19 12:45 04/15/19 12:44 03/16/19 13:14 Morphine Sulfate (Morphine Sulfate) 10 mg Q4H PRN IVP tachypnea> 20 and dyspnea 03/14/19 17:21 03/21/19 17:20 Ondansetron HCl (Zofran) 4 mg Q6H PRN IVP Nausea & Vomiting 03/14/19 17:21 04/13/19 17:20 Vancomycin HCl (Vanco rx to dose) 1 ea DAILY PRN MISC Per rx protocol 03/16/19 12:45 04/15/19 12:44 Vancomycin HCl 1 gm/Dextrose 275 ml @ 184 mls/hr Q12H IVPB 03/16/19 02:00 03/21/19 01:59 03/16/19 01:36 Allergies: Coded Allergies: No Known Allergies (Unverified , 03/07/19) ROS Limited/Unobtainable: Yes Subjective 68 YO M admitted with hypotension. Now sepsis. Cover for [facility]-Dr Marshall. Now full code. Objective Last Vital Signs Date Time Temp Pulse Resp B/P (MAP) Pulse Ox O2 Delivery O2 Flow Rate FiO2 03/16/19 12:00 98.2 89 18 84/51 (62) 95 03/16/19 09:00 Room Air 03/13/19 07:03 21 03/12/19 12:45 2.0 Intake and Output 03/15/19 03/16/19 19:00 07:00 Intake Total 390 ml 478 ml Balance 390 ml 478 ml Free Water 200 ml IV Total 478 ml Tube Feeding 190 ml Objective PHYSICAL EXAMINATION: GENERAL: The patient is awake, opens his eyes, cachectic, malnutrition. HEAD AND NECK: Pupils are equal and reactive to light. Anicteric. Neck was supple. No JVD. LUNGS: Clear. No wheezing or rales. Decreased air in bases. Coarse breath sounds. HEART: S1, S2. Tachycardic. No murmur or gallops. ABDOMEN: Soft, nondistended, and nontender. Positive bowel sounds. G-tube is in place. RECTAL/GENITOURINARY: The patient has a Pelayo catheter. EXTREMITIES: Bilateral AKA was noted with stump intact. NEUROLOGIC: Limited secondary to the patient's status. The patient is moving the left upper extremity. Right upper extremity is flaccid. FEED MILL LAB TECHNICIAN II through XII grossly intact, but it is very hard to follow. Neurologic examination is very limited secondary to the patient's status. Assessment/Plan Assessment/Plan ASSESSMENT: 1. Sepsis, septic shock most likely secondary to the urinary tract infection. 2. Acute kidney injury on chronic renal insufficiency due to severe dehydration. 3. Urinary tract infection. 4. Hypertension, presently hypotensive. 5. History of CVA. 6. Dysphagia, status post PEG. 7. Diabetes type 2. 8. Status post bilateral AKA. 9. Advanced dementia. 10. History of stroke with right-sided hemiparesis. 11. Hypernatremia/hypokalemia PLAN: 1. Code status at this time is Full Code 2. Urine culture=Proteus. Continue meropenem and vanco per ID= Dr Connolly 3. restart midodrine per nephrology=Darrick Lozano MD Mar 16, 2019 14:25
[2019-03-16 16:00] VITALS: BP 87/53
--- NOTE | 2019-03-16 16:26 | Pulmonology Progress Note ---
Assessment/Plan Problems: (1) Acute encephalopathy (2) Severe sepsis (3) Nosocomial pneumonia (4) Decubitus skin ulcer (5) CVA (cerebral vascular accident) (6) Feeding by G-tube (7) Alzheimer's dementia (8) S/P AKA (above knee amputation) bilateral Assessment/Plan improving vital signs are stable tolerating feeding f/u cultures continue abx dvt prophylaxis Subjective ROS Limited/Unobtainable: Yes Constitutional: Reports: no symptoms HEENT: Repors: no symptoms Allergies: Coded Allergies: No Known Allergies (Unverified , 03/07/19) Objective Last 24 Hour Vital Signs Date Time Temp Pulse Resp B/P (MAP) Pulse Ox O2 Delivery O2 Flow Rate FiO2 03/16/19 12:00 98.2 89 18 84/51 (62) 95 03/16/19 09:00 Room Air 03/16/19 08:00 97.9 85 20 94/54 (67) 97 03/16/19 04:00 97.6 85 18 93/56 (68) 95 03/16/19 00:00 97.9 101 20 88/57 (67) 95 03/15/19 21:00 Room Air 03/15/19 20:00 97.2 95 18 78/49 (59) 93 Intake and Output 03/15/19 03/16/19 19:00 07:00 Intake Total 390 ml 478 ml Balance 390 ml 478 ml Free Water 200 ml IV Total 478 ml Tube Feeding 190 ml General Appearance: WD/WN HEENT: normocephalic, atraumatic Respiratory/Chest: chest wall non-tender, normal breath sounds Cardiovascular: normal peripheral pulses, normal rate Abdomen: normal bowel sounds, soft, non tender Neurologic/Psychiatric: rivet spinner II-XII grossly normal Lymphatic: no neck adenopathy Current Medications Medications (Trade) Dose Ordered Sig/Jennifer Route PRN Reason Start Time Stop Time Status Last Admin Dose Admin Acetaminophen (Tylenol) 650 mg Q4H PRN ORAL fever 03/14/19 17:20 04/13/19 17:19 Atropine Sulfate (Atropine Opth Tosha) 1 drop Q2H PRN SL excessive secretions 03/14/19 17:30 04/13/19 17:29 Chlorhexidine Gluconate (Rani-Hex 2%) 1 applic DAILY@1999 TOPIC 03/14/19 20:00 04/06/19 19:59 03/15/19 20:17 Glycopyrrolate (Robinul) 0.1 mg Q6H PRN IV excessive secretions 03/14/19 17:21 04/13/19 17:20 Haloperidol (Haldol) 1 mg Q30M PRN ORAL Agitation 03/14/19 17:21 04/13/19 17:20 Lorazepam (Ativan 2mg/ml 1ml) 2 mg Q4H PRN IV For Anxiety/seizure 03/14/19 17:21 03/21/19 17:20 Meropenem 1 gm/ Sodium Chloride 55 ml @ 110 mls/hr Q12HR IVPB 03/16/19 00:00 03/21/19 00:00 03/16/19 09:06 Midodrine (Pro-Amatine) 2.5 mg Q6HR GT 03/16/19 12:45 04/15/19 12:44 03/16/19 13:14 Morphine Sulfate (Morphine Sulfate) 10 mg Q4H PRN IVP tachypnea> 20 and dyspnea 03/14/19 17:21 03/21/19 17:20 Ondansetron HCl (Zofran) 4 mg Q6H PRN IVP Nausea & Vomiting 03/14/19 17:21 04/13/19 17:20 Vancomycin HCl (Vanco rx to dose) 1 ea DAILY PRN MISC Per rx protocol 03/16/19 12:45 04/15/19 12:44 Vancomycin HCl 1 gm/Dextrose 275 ml @ 184 mls/hr Q12H IVPB 03/16/19 02:00 03/21/19 01:59 03/16/19 14:41 Jaylin Dickson MD Mar 16, 2019 16:26
--- NOTE | 2019-03-16 19:24 | NUR ---
NURSE NOTES: patient continues to tolerate G-tube feedings.patient has BM today,skin care given,position for comfort.muro catheter remains in place and secured.
[2019-03-16 20:00] VITALS: BP 94/56
--- NOTE | 2019-03-16 20:00 | NUR ---
HAND-OFF: Report given to Ivonne SMITH.
[2019-03-16] MEDS: Dyna-Hex 2% Top Sol 2oz TOPIC SCH (21:09)
[2019-03-17] VITALS: BP 86/57
[2019-03-17] MEDS: Vancomycin 1 GM in D5W 275 ML IVPB SCH ×2 (02:14→13:50)
[2019-03-17 04:00] VITALS: BP 97/57
[2019-03-17 05:34] LABS: BASOPHILS % (AUTO) 0.3 % (0.0-2.0); EOSINOPHILS % (AUTO) 0.6 % (0.0-3.0); HEMATOCRIT 31.1 % (42.0-52.0); HEMOGLOBIN 9.9 G/DL (14.2-18.0); LYMPHOCYTES % (AUTO) 40.4 % (20.0-45.0); MEAN CORPUSCULAR VOLUME 90 FL (80-99); NEUTROPHILS % (AUTO) 49.7 % (45.0-75.0); PLATELET COUNT 344 K/UL (150-450); RED BLOOD COUNT 3.47 M/UL (4.70-6.10); RED CELL DISTRIBUTION WIDTH 14.2 % (11.6-14.8); WHITE BLOOD COUNT 7.1 K/UL (4.8-10.8)
[2019-03-17 06:06] LABS: ALANINE AMINOTRANSFERASE 21 U/L (12-78); ALBUMIN 1.8 G/DL (3.4-5.0); ALBUMIN/GLOBULIN RATIO 0.4 (1.0-2.7); ALKALINE PHOSPHATASE 103 U/L (46-116); ANION GAP 4 mmol/L (5-15); ASPARTATE AMINO TRANSFERASE 22 U/L (15-37); BILIRUBIN,TOTAL 0.3 MG/DL (0.2-1.0); BLOOD UREA NITROGEN 11 mg/dL (7-18); CARBON DIOXIDE 27 MMOL/L (21-32); CHLORIDE 107 MMOL/L (98-107); CREATININE 0.4 MG/DL (0.55-1.30); PHOSPHORUS 2.4 MG/DL (2.5-4.9); SODIUM 138 MMOL/L (136-145)
--- NOTE | 2019-03-17 07:23 | NUR ---
HAND-OFF: Report given to SARAH Salter.
--- NOTE | 2019-03-17 07:30 | NUR ---
NURSE NOTES: Received patient asleep on bed. No SOB or cardiac distress. With TLC on right subclavian intact and patent, dressing intact. With Gtube intact and patent, with ongoing feeding. Gt dressing intact. Pelayo catheter intact and draining well. HOB elevated. Bed locked in lowest position. Call light within reach. Will continue plan of care.
[2019-03-17 08:00] VITALS: BP 85/50
[2019-03-17] MEDS: Meropenem 1 GM in NS 55 ML IVPB SCH ×2 (10:20→20:16)
--- NOTE | 2019-03-17 11:52 | NUR ---
CASE MANAGEMENT:REVIEW 03/14/19 SI: SEPSIS. UTI. PNA 97.7 81 18 85/50 95% ON RA H/H-9.9/31.1 IS: IV VANCOMYCIN Q12 IV MEROPENEM Q12 MIDODRINE GT Q6HRS : TELEMETRY STATUS DCP; FROM [facility]: UNABLE TO TRANSPORT WITH SBP LESS THAN 100
[2019-03-17 12:00] VITALS: BP 101/52
--- NOTE | 2019-03-17 12:56 | Infectious Diseases Prog Note ---
Assessment/Plan Assessment/Plan Assessment: Septic shock, SP- likely 2ry to UTI and PNA Gram positive bacteremia- r/o contaminant vs real -03/08 CXR: Mildly worsening patchy consolidation throughout the left upper and lower lungs compared to the prior exam, concerning for pneumonia. Persistent mild elevation of the left hemidiaphragm. Cannot exclude small layering left pleural effusion. -u/a wbc tnct, nti neg, leuk +3; ucx >100k P. mirabilis (S Zosyn, Ceftriaxone ; R Cipro) -03/07 Bcx Neg; 03/11 05/31 S. epi; 03/13 BCx NTD -sp cx MRSA, christine albicans -CXR: There is volume loss at the left lung base again noted unchanged. Left hemidiaphragm is elevated. -2d Echo: no vegetations Low grade fever, SP Leukocytosis, recurrent, increased- resolved L stump ulcer -wound cx Neg -femur xray: The patient is status post [id number] amputation on the left. No definite focal osteopenia or bony erosion noted to suggest acute osteomyelitis. JESUS, SP hx of UTI 11/2018, sp Rx --u/a wbc tnct, nit+, leuk +3; ucx >100k P. mirabilis (S Ceftriaxone, Ertapenem, Zosyn) HTN CVA dysphagia s/p GT Dm2 b/l AKA non verbal advanced dementia PVD [place] resident Plan: -Resumed IV Vancomycin #2 (abx d #10) and Meropenem #2 (abx d #6) given change of goals of care back to full code as per request of patient's significant other -03/14 SP IV Vancomycin #8, Meropenem #4 -03/12 SP IV AMikacin #6 -03/11 SP Ertapenem #5 -03/07 SP Zosyn x1 -/ SP Ceftriaxone #3 -12/25 SP IV Vancomycin #3, Cefepime #3 -12/23 SP Flagyl #1 -f/u cx (Bl) -wound care per hospital protocol -goals of care to be defined Thank you for this consultation. Will continue to follow along with you. Discussed with RN Subjective Allergies: Coded Allergies: No Known Allergies (Unverified , 03/07/19) Subjective afebrile no leukocytosis Objective Vital Signs Last 24 Hour Vital Signs Date Time Temp Pulse Resp B/P (MAP) Pulse Ox O2 Delivery O2 Flow Rate FiO2 03/17/19 12:00 98.0 86 19 101/52 (68) 95 03/17/19 09:00 Room Air 03/17/19 08:00 97.7 81 18 85/50 (62) 95 03/17/19 04:00 97.4 79 20 97/57 (70) 98 03/17/19 00:00 98.2 91 20 86/57 (67) 96 03/16/19 21:00 Room Air 03/16/19 20:00 98.0 101 19 94/56 (69) 97 03/16/19 16:00 98.9 99 19 87/53 (64) 100 Height (Feet): 3 Height (Inches): 6.00 Weight (Pounds): 142 Objective General Appearance: moderate distress - Appears diaphoretic and is tachycardic Head: normocephalic, atraumatic Eyes: bilateral eye PERRL, bilateral eye EOMI ENT: dry mucus membranes Neck: supple Respiratory: no retraction, no accessory muscle use, crackles - Bilaterally Cardiovascular: tachycardia Gastrointestinal: non tender, soft, other - Feeding tube in place Musculoskeletal: other - Bilateral [id number] amputations does not follow commands, right upper extremity paralysis Neurologic: other - Patient has eyes open however does not follow commands is not verbal Psychiatric: normal inspection Skin: other - Scars formations bilateral femoral area Laboratory Tests Test 03/17/19 05:00 White Blood Count 7.1 K/UL (4.8-10.8) Red Blood Count 3.47 M/UL (4.70-6.10) L Hemoglobin 9.9 G/DL (14.2-18.0) L Hematocrit 31.1 % (42.0-52.0) L Mean Corpuscular Volume 90 FL (80-99) Mean Corpuscular Hemoglobin 28.5 PG (27.0-31.0) Mean Corpuscular Hemoglobin Concent 31.9 G/DL (32.0-36.0) L Red Cell Distribution Width 14.2 % (11.6-14.8) Platelet Count 344 K/UL (150-450) Mean Platelet Volume 5.3 FL (6.5-10.1) L Neutrophils (%) (Auto) 49.7 % (45.0-75.0) Lymphocytes (%) (Auto) 40.4 % (20.0-45.0) Monocytes (%) (Auto) 9.0 % (1.0-10.0) Eosinophils (%) (Auto) 0.6 % (0.0-3.0) Basophils (%) (Auto) 0.3 % (0.0-2.0) Sodium Level 138 MMOL/L (136-145) Potassium Level 4.0 MMOL/L (3.5-5.1) Chloride Level 107 MMOL/L (98-107) Carbon Dioxide Level 27 MMOL/L (21-32) Anion Gap 4 mmol/L (5-15) L Blood Urea Nitrogen 11 mg/dL (7-18) Creatinine 0.4 MG/DL (0.55-1.30) L Estimat Glomerular Filtration Rate > 60 mL/min (>60) Glucose Level 93 MG/DL (74-106) Calcium Level 8.0 MG/DL (8.5-10.1) L Phosphorus Level 2.4 MG/DL (2.5-4.9) L Magnesium Level 1.9 MG/DL (1.8-2.4) Total Bilirubin 0.3 MG/DL (0.2-1.0) Aspartate Amino Transf (AST/SGOT) 22 U/L (15-37) Alanine Aminotransferase (ALT/SGPT) 21 U/L (12-78) Alkaline Phosphatase 103 U/L (46-116) C-Reactive Protein, Quantitative 1.2 mg/dL (0.00-0.90) H Pro-B-Type Natriuretic Peptide 658 pg/mL (0-125) H Total Protein 6.4 G/DL (6.4-8.2) Albumin 1.8 G/DL (3.4-5.0) L Globulin 4.6 g/dL Albumin/Globulin Ratio 0.4 (1.0-2.7) L Current Medications Medications (Trade) Dose Ordered Sig/Jennifer Route PRN Reason Start Time Stop Time Status Last Admin Dose Admin Acetaminophen (Tylenol) 650 mg Q4H PRN ORAL fever 03/14/19 17:20 04/13/19 17:19 Atropine Sulfate (Atropine Opth Tosha) 1 drop Q2H PRN SL excessive secretions 03/14/19 17:30 04/13/19 17:29 Chlorhexidine Gluconate (Rani-Hex 2%) 1 applic DAILY@2000 TOPIC 03/14/19 20:00 04/06/19 19:59 03/16/19 21:09 Glycopyrrolate (Robinul) 0.1 mg Q6H PRN IV excessive secretions 03/14/19 17:21 04/13/19 17:20 Haloperidol (Haldol) 1 mg Q30M PRN ORAL Agitation 03/14/19 17:21 04/13/19 17:20 Lorazepam (Ativan 2mg/ml 1ml) 2 mg Q4H PRN IV For Anxiety/seizure 03/14/19 17:21 03/21/19 17:20 Meropenem 1 gm/ Sodium Chloride 55 ml @ 110 mls/hr Q12HR IVPB 03/16/19 00:00 03/21/19 00:00 03/17/19 10:20 Midodrine (Pro-Amatine) 2.5 mg Q6HR GT 03/16/19 12:45 04/15/19 12:44 03/17/19 12:15 Morphine Sulfate (Morphine Sulfate) 10 mg Q4H PRN IVP tachypnea> 20 and dyspnea 03/14/19 17:21 03/21/19 17:20 Ondansetron HCl (Zofran) 4 mg Q6H PRN IVP Nausea & Vomiting 03/14/19 17:21 04/13/19 17:20 Vancomycin HCl (Vanco rx to dose) 1 ea DAILY PRN MISC Per rx protocol 03/16/19 12:45 04/15/19 12:44 Vancomycin HCl 1 gm/Dextrose 275 ml @ 184 mls/hr Q12H IVPB 03/16/19 02:00 03/21/19 01:59 03/17/19 02:14 Deepti Connolly M.D. Mar 17, 2019 12:56
--- NOTE | 2019-03-17 14:29 | NUR ---
RD ASSESSMENT & RECOMMENDATIONS SEE CARE ACTIVITY FOR COMPLETE ASSESSMENT DAILY ESTIMATED NEEDS: Needs based on Sepsis, wound/ 51.3 kg 25-35 kcals/kg 1283- 1796 total kcals 1.25-2 g protein/kg 64-103 g total protein 25-30 mL/kg 4901-6419 total fluid mLs NUTRITION DIAGNOSIS: * Increased kcal and pro needs r/t sepsis and wound healing as evidenced by pt w/ elev WBC (13.1-> wnl), BG (205-> 93, 74), elev RR(29-> wnl), elev HR (112 -> wnl), hypotensive, off pressor support, w/ sacral + lt stump wounds (stage 2 per RN). * Swallowing difficulty R/T dysphagia as evidenced by pt is PEG dep. * Altered nutrition related lab values R/T dehydration as evidenced by elev Na (165* -> wnl), elev BUN (118 -> wnl). CURRENT TF:Glucerna 1.2 @ 50ml/hr x 24 hrs ENTERAL NUTRITION RECOMMENDATIONS: Glucerna 1.2 @ 50ml/hr x 24 hrs to provide 1200ml, 1440kcal, 72g prot, 966ml free water * Maintain currrent TF * HOB over 30 degrees/ water flush per MD ADDITIONAL RECOMMENDATIONS: 1) CALIBRATED bedscale wt, weekly wt monitoring ([facility] WT: 113#) 2) Monitor lytes, replete as needed (phos 2.4) 3) WOUND CARE: Vit C 250mg QD, Wally 1pkt BID via PEG 4) Monitor POC: full code again (was made DNR/DNI on 03/13, now full code) 5) Monitor BGs, need to resume NISS . .
--- NOTE | 2019-03-17 14:40 | Nephrology Progress Note ---
Assessment/Plan Problem List: (1) Renal failure (ARF), acute on chronic (2) Hypernatremia (3) Dehydration (4) Hypokalemia Assessment Acute Renal Failure- ? Underlying CKD Dehydration Sepsis / UTI Dementia PEG s/p CVA s/p Bilateral AKA Decubiti Plan Phos via Gt Hypotensive- in med surg . full code again meanwhile feeding is resumed Abx resumed will start Midodrin again and adjust the dose Subjective ROS Limited/Unobtainable: No Constitutional: Reports: malaise, weakness Objective Objective Last 24 Hour Vital Signs Date Time Temp Pulse Resp B/P (MAP) Pulse Ox O2 Delivery O2 Flow Rate FiO2 03/17/19 12:00 98.0 86 19 101/52 (68) 95 03/17/19 09:00 Room Air 03/17/19 08:00 97.7 81 18 85/50 (62) 95 03/17/19 04:00 97.4 79 20 97/57 (70) 98 03/17/19 00:00 98.2 91 20 86/57 (67) 96 03/16/19 21:00 Room Air 03/16/19 20:00 98.0 101 19 94/56 (69) 97 03/16/19 16:00 98.9 99 19 87/53 (64) 100 Intake and Output 03/16/19 03/17/19 19:00 07:00 Intake Total 650 ml 860 ml Output Total 575 ml Balance 650 ml 285 ml Free Water 200 ml IV Total 110 ml Tube Feeding 650 ml 550 ml Output Urine Total 575 ml # Bowel Movements 2 Laboratory Tests 03/17/19 05:00: White Blood Count 7.1, Red Blood Count 3.47L, Hemoglobin 9.9L, Hematocrit 31.1L , Mean Corpuscular Volume 90, Mean Corpuscular Hemoglobin 28.5, Mean Corpuscular Hemoglobin Concent 31.9L, Red Cell Distribution Width 14.2, Platelet Count 344, Mean Platelet Volume 5.3L, Neutrophils (%) (Auto) 49.7, Lymphocytes (%) (Auto) 40.4, Monocytes (%) (Auto) 9.0, Eosinophils (%) (Auto) 0.6, Basophils (%) (Auto) 0.3, Sodium Level 138, Potassium Level 4.0, Chloride Level 107, Carbon Dioxide Level 27, Anion Gap 4L, Blood Urea Nitrogen 11, Creatinine 0.4L, Estimat Glomerular Filtration Rate > 60, Glucose Level 93, Calcium Level 8.0L, Phosphorus Level 2.4L, Magnesium Level 1.9, Total Bilirubin 0.3, Aspartate Amino Transf (AST/SGOT) 22, Alanine Aminotransferase (ALT/SGPT) 21, Alkaline Phosphatase 103, C-Reactive Protein, Quantitative 1.2H, Pro-B-Type Natriuretic Peptide 658H, Total Protein 6.4, Albumin 1.8L, Globulin 4.6, Albumin /Globulin Ratio 0.4L 03/17/19 13:05: Vancomycin Level Trough 17.8H Height (Feet): 3 Height (Inches): 6.00 Weight (Pounds): 142 General Appearance: no apparent distress Objective no change Gennaro Cagle MD Mar 17, 2019 14:40
[2019-03-17] MEDS ORDERED: Phospha 250 Neutral tab GT SCH (14:45)
--- NOTE | 2019-03-17 15:00 | NUR ---
NURSE NOTES: Patient with complaints of abdominal pain, tylenol given but unrelieved, Dr. Marshall aware. Dr. Dickson ordered [place] 5/325mg PO Q6 hours PRN.
--- NOTE | 2019-03-17 15:21 | NUR ---
*-* INSURANCE *-* ALL CLINICALS AND REVIEWS HAVE BEEN FAXED TO: [employer] P: [phone] F: [phone] & [employer] P: [phone] F: [phone]
[2019-03-17 16:00] VITALS: BP 92/57
[2019-03-17] MEDS ORDERED: HYDROcodone/Acetamin 5/325 tab ORAL PRN (16:00)
--- NOTE | 2019-03-17 17:09 | Diagnostic Imaging Report ---
Indication: Cough Technique: One view of the chest Comparison: 03/10/2019 Findings: There is persistent elevation left hemidiaphragm and left basilar atelectatic change. Right subclavian central venous catheter is again demonstrated. There is increased interstitial disease in the right lung. There is slightly increased interstitial prominence in the left upper lobe, but overall decreased hazy opacity. Impression: Increased interstitial congestion, since prior exam of 03/10/2019 however, there is decreased left upper lung hazy opacity Other findings are stable
--- NOTE | 2019-03-17 18:53 | Internal Med Progress Note ---
Subjective Date of Service: Mar 17, 2019 Physician Name Darrick Stout Attending Physician Yannick Marshall MD Current Medications Medications (Trade) Dose Ordered Sig/Jennifer Route PRN Reason Start Time Stop Time Status Last Admin Dose Admin Acetaminophen (Tylenol) 650 mg Q4H PRN ORAL fever 03/14/19 17:20 04/13/19 17:19 03/17/19 14:21 Acetaminophen/ Hydrocodone Bitart ([place] 5/325) 1 tab Q6H PRN ORAL Pain 4-10 03/17/19 16:00 03/24/19 15:59 Atropine Sulfate (Atropine Opth Tosha) 1 drop Q2H PRN SL excessive secretions 03/14/19 17:30 04/13/19 17:29 Chlorhexidine Gluconate (Rani-Hex 2%) 1 applic DAILY@2000 TOPIC 03/14/19 20:00 04/06/19 19:59 03/16/19 21:09 Glycopyrrolate (Robinul) 0.1 mg Q6H PRN IV excessive secretions 03/14/19 17:21 04/13/19 17:20 Haloperidol (Haldol) 1 mg Q30M PRN ORAL Agitation 03/14/19 17:21 04/13/19 17:20 Lorazepam (Ativan 2mg/ml 1ml) 2 mg Q4H PRN IV For Anxiety/seizure 03/14/19 17:21 03/21/19 17:20 Meropenem 1 gm/ Sodium Chloride 55 ml @ 110 mls/hr Q12HR IVPB 03/16/19 00:00 03/21/19 00:00 03/17/19 10:20 Midodrine (Pro-Amatine) 5 mg Q6HR GT 03/17/19 18:00 04/15/19 12:44 03/17/19 17:55 Morphine Sulfate (Morphine Sulfate) 10 mg Q4H PRN IVP tachypnea> 20 and dyspnea 03/14/19 17:21 03/21/19 17:20 Ondansetron HCl (Zofran) 4 mg Q6H PRN IVP Nausea & Vomiting 03/14/19 17:21 04/13/19 17:20 Vancomycin HCl (Vanco rx to dose) 1 ea DAILY PRN MISC Per rx protocol 03/16/19 12:45 04/15/19 12:44 Vancomycin HCl 1 gm/Dextrose 275 ml @ 184 mls/hr Q12H IVPB 03/16/19 02:00 03/21/19 01:59 03/17/19 13:50 Allergies: Coded Allergies: No Known Allergies (Unverified , 03/07/19) ROS Limited/Unobtainable: No Constitutional: Reports: no symptoms HEENT: Reports: no symptoms Cardiovascular: Reports: no symptoms Respiratory: Reports: no symptoms Gastrointestinal/Abdominal: Reports: no symptoms Genitourinary: Reports: no symptoms Neurologic/Psychiatric: Reports: no symptoms Subjective 68 YO M admitted with hypotension. Now sepsis. Cover for Int Med-Dr Marshall. Now full code. Objective Last Vital Signs Date Time Temp Pulse Resp B/P (MAP) Pulse Ox O2 Delivery O2 Flow Rate FiO2 03/17/19 16:00 98.0 88 18 92/57 (69) 99 03/17/19 09:00 Room Air 03/13/19 07:03 21 03/12/19 12:45 2.0 Laboratory Tests Test 03/17/19 05:00 03/17/19 13:05 White Blood Count 7.1 K/UL (4.8-10.8) Red Blood Count 3.47 M/UL (4.70-6.10) L Hemoglobin 9.9 G/DL (14.2-18.0) L Hematocrit 31.1 % (42.0-52.0) L Mean Corpuscular Volume 90 FL (80-99) Mean Corpuscular Hemoglobin 28.5 PG (27.0-31.0) Mean Corpuscular Hemoglobin Concent 31.9 G/DL (32.0-36.0) L Red Cell Distribution Width 14.2 % (11.6-14.8) Platelet Count 344 K/UL (150-450) Mean Platelet Volume 5.3 FL (6.5-10.1) L Neutrophils (%) (Auto) 49.7 % (45.0-75.0) Lymphocytes (%) (Auto) 40.4 % (20.0-45.0) Monocytes (%) (Auto) 9.0 % (1.0-10.0) Eosinophils (%) (Auto) 0.6 % (0.0-3.0) Basophils (%) (Auto) 0.3 % (0.0-2.0) Sodium Level 138 MMOL/L (136-145) Potassium Level 4.0 MMOL/L (3.5-5.1) Chloride Level 107 MMOL/L (98-107) Carbon Dioxide Level 27 MMOL/L (21-32) Anion Gap 4 mmol/L (5-15) L Blood Urea Nitrogen 11 mg/dL (7-18) Creatinine 0.4 MG/DL (0.55-1.30) L Estimat Glomerular Filtration Rate > 60 mL/min (>60) Glucose Level 93 MG/DL (74-106) Calcium Level 8.0 MG/DL (8.5-10.1) L Phosphorus Level 2.4 MG/DL (2.5-4.9) L Magnesium Level 1.9 MG/DL (1.8-2.4) Total Bilirubin 0.3 MG/DL (0.2-1.0) Aspartate Amino Transf (AST/SGOT) 22 U/L (15-37) Alanine Aminotransferase (ALT/SGPT) 21 U/L (12-78) Alkaline Phosphatase 103 U/L (46-116) C-Reactive Protein, Quantitative 1.2 mg/dL (0.00-0.90) H Pro-B-Type Natriuretic Peptide 658 pg/mL (0-125) H Total Protein 6.4 G/DL (6.4-8.2) Albumin 1.8 G/DL (3.4-5.0) L Globulin 4.6 g/dL Albumin/Globulin Ratio 0.4 (1.0-2.7) L Vancomycin Level Trough 17.8 ug/mL (5.0-12.0) H Intake and Output 03/16/19 03/17/19 19:00 07:00 Intake Total 650 ml 910 ml Output Total 575 ml Balance 650 ml 335 ml Free Water 200 ml IV Total 110 ml Tube Feeding 650 ml 600 ml Output Urine Total 575 ml # Bowel Movements 2 Objective PHYSICAL EXAMINATION: GENERAL: The patient is awake, opens his eyes, cachectic, malnutrition. HEAD AND NECK: Pupils are equal and reactive to light. Anicteric. Neck was supple. No JVD. LUNGS: Clear. No wheezing or rales. Decreased air in bases. Coarse breath sounds. HEART: S1, S2. Tachycardic. No murmur or gallops. ABDOMEN: Soft, nondistended, and nontender. Positive bowel sounds. G-tube is in place. RECTAL/GENITOURINARY: The patient has a Pelayo catheter. EXTREMITIES: Bilateral AKA was noted with stump intact. NEUROLOGIC: Limited secondary to the patient's status. The patient is moving the left upper extremity. Right upper extremity is flaccid. FARM WORKER II through XII grossly intact, but it is very hard to follow. Neurologic examination is very limited secondary to the patient's status. Assessment/Plan Assessment/Plan ASSESSMENT: 1. Sepsis, septic shock most likely secondary to the urinary tract infection. 2. Acute kidney injury on chronic renal insufficiency due to severe dehydration. 3. Urinary tract infection. 4. Hypertension, presently hypotensive. 5. History of CVA. 6. Dysphagia, status post PEG. 7. Diabetes type 2. 8. Status post bilateral AKA. 9. Advanced dementia. 10. History of stroke with right-sided hemiparesis. 11. Hypernatremia/hypokalemia PLAN: 1. Code status at this time is Full Code 2. Urine culture=Proteus. Continue meropenem and vanco per ID= Dr Connolly 3. restart midodrine per nephrology=Darrick Lozano MD Mar 17, 2019 18:53
--- NOTE | 2019-03-17 19:00 | NUR ---
NURSE NOTES: Received a report from SARAH Salter. Pt is in stable condition. On room air. No pain/discomfort noted. HOB elevated. GT feeding is running. PICC line 3 lumen on R subclavian, is patent and intact. Pelayo catheter is draining. Bed in lowest position. Bed alarm is on. Call light within reach. Will continue to monitor.
--- NOTE | 2019-03-17 19:49 | NUR ---
HAND-OFF: Report given to Macie.
[2019-03-17 20:00] VITALS: BP 84/52
[2019-03-17] MEDS: Dyna-Hex 2% Top Sol 2oz TOPIC SCH (20:16)
[2019-03-18] VITALS: BP 87/53
[2019-03-18] MEDS: Vancomycin 1 GM in D5W 275 ML IVPB SCH ×2 (02:10→13:09)
[2019-03-18 04:00] VITALS: BP 98/62
--- NOTE | 2019-03-18 07:00 | NUR ---
HAND-OFF: Report given to SARAH Braswell.
--- NOTE | 2019-03-18 07:22 | NUR ---
NURSE NOTES: Patient awake, non-verbal; on room air, no sing of distress and shortness of breath; Tube feeding Glucerna 1.2 running at 50cc, no residual; Pelayo in place, drains yellow urine; PICC line on the Right-Subclavian triple lumen TKO, dressing for PICC line dry and intact; side rails padded for seizure percussion, head of the bed elevated, breaks engaged, bed at lowest position; bed alarm on; will keep monitoring patient's blood pressure;
[2019-03-18 07:35] LABS: BASOPHILS % (AUTO) 0.5 % (0.0-2.0); EOSINOPHILS % (AUTO) 0.7 % (0.0-3.0); HEMATOCRIT 32.7 % (42.0-52.0); HEMOGLOBIN 10.4 G/DL (14.2-18.0); LYMPHOCYTES % (AUTO) 43.2 % (20.0-45.0); MEAN CORPUSCULAR VOLUME 90 FL (80-99); MONOCYTES % (AUTO) 5.3 % (1.0-10.0); NEUTROPHILS % (AUTO) 50.2 % (45.0-75.0); PLATELET COUNT 366 K/UL (150-450); RED BLOOD COUNT 3.65 M/UL (4.70-6.10); RED CELL DISTRIBUTION WIDTH 14.7 % (11.6-14.8); WHITE BLOOD COUNT 6.6 K/UL (4.8-10.8)
[2019-03-18 07:57] LABS: ANION GAP 6 mmol/L (5-15); BLOOD UREA NITROGEN 10 mg/dL (7-18); CALCIUM 8.6 MG/DL (8.5-10.1); CARBON DIOXIDE 28 MMOL/L (21-32); CHLORIDE 105 MMOL/L (98-107); CREATININE 0.4 MG/DL (0.55-1.30); POTASSIUM 3.8 MMOL/L (3.5-5.1); SODIUM 139 MMOL/L (136-145)
[2019-03-18 08:00] VITALS: BP 101/60
[2019-03-18] MEDS: Meropenem 1 GM in NS 55 ML IVPB SCH ×2 (08:24→21:46)
--- NOTE | 2019-03-18 11:35 | NUR ---
*-* INSURANCE *-* ALL CLINICALS AND REVIEWS HAVE BEEN FAXED TO: [employer] P: [phone] F: [phone] & [employer] P: [phone] F: [phone]
[2019-03-18 12:00] VITALS: BP 99/63
--- NOTE | 2019-03-18 12:14 | Pulmonology Progress Note ---
Assessment/Plan Problems: (1) Acute encephalopathy (2) Severe sepsis (3) Nosocomial pneumonia (4) Decubitus skin ulcer (5) CVA (cerebral vascular accident) (6) Feeding by G-tube (7) Alzheimer's dementia (8) S/P AKA (above knee amputation) bilateral Assessment/Plan no new complains improving vital signs are stable tolerating feeding f/u cultures continue abx dvt prophylaxis Subjective ROS Limited/Unobtainable: No Interval Events: late ntoe Allergies: Coded Allergies: No Known Allergies (Unverified , 03/07/19) Objective Last 24 Hour Vital Signs Date Time Temp Pulse Resp B/P (MAP) Pulse Ox O2 Delivery O2 Flow Rate FiO2 03/18/19 09:00 Room Air 03/18/19 08:00 97.0 73 17 101/60 (74) 97 03/18/19 04:00 96.8 71 16 98/62 (74) 95 03/18/19 00:00 96.4 76 18 87/53 (64) 96 03/17/19 21:00 Room Air 03/17/19 20:00 96.3 71 18 84/52 (63) 96 03/17/19 16:00 98.0 88 18 92/57 (69) 99 Intake and Output 03/17/19 03/18/19 19:00 07:00 Intake Total 1130 ml 1080 ml Output Total 700 ml Balance 430 ml 1080 ml Free Water 200 ml 200 ml IV Total 330 ml 330 ml Tube Feeding 600 ml 550 ml Output Urine Total 700 ml # Bowel Movements 1 General Appearance: WD/WN, no acute distress HEENT: normocephalic, atraumatic Respiratory/Chest: chest wall non-tender, lungs clear Cardiovascular: normal peripheral pulses, normal rate Abdomen: normal bowel sounds, soft, non tender Genitourinary: normal external genitalia Extremities: no cyanosis Neurologic/Psychiatric: counter manager II-XII grossly normal Laboratory Tests 03/17/19 13:05: Vancomycin Level Trough 17.8H 03/18/19 05:15: White Blood Count 6.6, Red Blood Count 3.65L, Hemoglobin 10.4L, Hematocrit 32.7L , Mean Corpuscular Volume 90, Mean Corpuscular Hemoglobin 28.5, Mean Corpuscular Hemoglobin Concent 31.8L, Red Cell Distribution Width 14.7, Platelet Count 366, Mean Platelet Volume 5.0L, Neutrophils (%) (Auto) 50.2, Lymphocytes (%) (Auto) 43.2, Monocytes (%) (Auto) 5.3, Eosinophils (%) (Auto) 0.7, Basophils (%) (Auto) 0.5, Sodium Level 139, Potassium Level 3.8, Chloride Level 105, Carbon Dioxide Level 28, Anion Gap 6, Blood Urea Nitrogen 10, Creatinine 0.4L, Estimat Glomerular Filtration Rate > 60, Glucose Level 89, Calcium Level 8.6 Current Medications Medications (Trade) Dose Ordered Sig/Jennifer Route PRN Reason Start Time Stop Time Status Last Admin Dose Admin Acetaminophen (Tylenol) 650 mg Q4H PRN ORAL fever 03/14/19 17:20 04/13/19 17:19 03/17/19 14:21 Acetaminophen/ Hydrocodone Bitart ([place] 5/325) 1 tab Q6H PRN ORAL Pain 4-10 03/17/19 16:00 03/24/19 15:59 Atropine Sulfate (Atropine Opth Tosha) 1 drop Q2H PRN SL excessive secretions 03/14/19 17:30 04/13/19 17:29 Chlorhexidine Gluconate (Rani-Hex 2%) 1 applic DAILY@2000 TOPIC 03/14/19 20:00 04/06/19 19:59 03/17/19 20:16 Glycopyrrolate (Robinul) 0.1 mg Q6H PRN IV excessive secretions 03/14/19 17:21 04/13/19 17:20 Haloperidol (Haldol) 1 mg Q30M PRN ORAL Agitation 03/14/19 17:21 04/13/19 17:20 Lorazepam (Ativan 2mg/ml 1ml) 2 mg Q4H PRN IV For Anxiety/seizure 03/14/19 17:21 03/21/19 17:20 Meropenem 1 gm/ Sodium Chloride 55 ml @ 110 mls/hr Q12HR IVPB 03/16/19 00:00 03/21/19 00:00 03/18/19 08:24 Midodrine (Pro-Amatine) 5 mg Q6HR GT 03/17/19 18:00 04/15/19 12:44 03/18/19 05:39 Morphine Sulfate (Morphine Sulfate) 10 mg Q4H PRN IVP tachypnea> 20 and dyspnea 03/14/19 17:21 03/21/19 17:20 Ondansetron HCl (Zofran) 4 mg Q6H PRN IVP Nausea & Vomiting 03/14/19 17:21 04/13/19 17:20 Vancomycin HCl (Vanco rx to dose) 1 ea DAILY PRN MISC Per rx protocol 03/16/19 12:45 04/15/19 12:44 Vancomycin HCl 1 gm/Dextrose 275 ml @ 184 mls/hr Q12H IVPB 03/16/19 02:00 03/21/19 01:59 03/18/19 02:10 Jaylin Dickson MD Mar 18, 2019 12:14
--- NOTE | 2019-03-18 12:15 | Pulmonology Progress Note ---
Assessment/Plan Problems: (1) Acute encephalopathy (2) Severe sepsis (3) Nosocomial pneumonia (4) Decubitus skin ulcer (5) CVA (cerebral vascular accident) (6) Feeding by G-tube (7) Alzheimer's dementia (8) S/P AKA (above knee amputation) bilateral Assessment/Plan no new complains improving vital signs are stable tolerating feeding f/u cultures continue abx dvt prophylaxis Subjective ROS Limited/Unobtainable: No Constitutional: Reports: no symptoms HEENT: Repors: no symptoms Respiratory: Reports: no symptoms Allergies: Coded Allergies: No Known Allergies (Unverified , 03/07/19) Objective Last 24 Hour Vital Signs Date Time Temp Pulse Resp B/P (MAP) Pulse Ox O2 Delivery O2 Flow Rate FiO2 03/18/19 09:00 Room Air 03/18/19 08:00 97.0 73 17 101/60 (74) 97 03/18/19 04:00 96.8 71 16 98/62 (74) 95 03/18/19 00:00 96.4 76 18 87/53 (64) 96 03/17/19 21:00 Room Air 03/17/19 20:00 96.3 71 18 84/52 (63) 96 03/17/19 16:00 98.0 88 18 92/57 (69) 99 Intake and Output 03/17/19 03/18/19 19:00 07:00 Intake Total 1130 ml 1080 ml Output Total 700 ml Balance 430 ml 1080 ml Free Water 200 ml 200 ml IV Total 330 ml 330 ml Tube Feeding 600 ml 550 ml Output Urine Total 700 ml # Bowel Movements 1 General Appearance: WD/WN HEENT: normocephalic, atraumatic Respiratory/Chest: chest wall non-tender, lungs clear Cardiovascular: normal peripheral pulses, normal rate Abdomen: soft, non tender, no organomegaly, no scars Extremities: no cyanosis Skin: no rash, no lesions Lymphatic: no neck adenopathy Laboratory Tests 03/17/19 13:05: Vancomycin Level Trough 17.8H 03/18/19 05:15: White Blood Count 6.6, Red Blood Count 3.65L, Hemoglobin 10.4L, Hematocrit 32.7L , Mean Corpuscular Volume 90, Mean Corpuscular Hemoglobin 28.5, Mean Corpuscular Hemoglobin Concent 31.8L, Red Cell Distribution Width 14.7, Platelet Count 366, Mean Platelet Volume 5.0L, Neutrophils (%) (Auto) 50.2, Lymphocytes (%) (Auto) 43.2, Monocytes (%) (Auto) 5.3, Eosinophils (%) (Auto) 0.7, Basophils (%) (Auto) 0.5, Sodium Level 139, Potassium Level 3.8, Chloride Level 105, Carbon Dioxide Level 28, Anion Gap 6, Blood Urea Nitrogen 10, Creatinine 0.4L, Estimat Glomerular Filtration Rate > 60, Glucose Level 89, Calcium Level 8.6 Current Medications Medications (Trade) Dose Ordered Sig/Jennifer Route PRN Reason Start Time Stop Time Status Last Admin Dose Admin Acetaminophen (Tylenol) 650 mg Q4H PRN ORAL fever 03/14/19 17:20 04/13/19 17:19 03/17/19 14:21 Acetaminophen/ Hydrocodone Bitart ([place] 5/325) 1 tab Q6H PRN ORAL Pain 4-10 03/17/19 16:00 03/24/19 15:59 Atropine Sulfate (Atropine Opth Tosha) 1 drop Q2H PRN SL excessive secretions 03/14/19 17:30 04/13/19 17:29 Chlorhexidine Gluconate (Rani-Hex 2%) 1 applic DAILY@2000 TOPIC 03/14/19 20:00 04/06/19 19:59 03/17/19 20:16 Glycopyrrolate (Robinul) 0.1 mg Q6H PRN IV excessive secretions 03/14/19 17:21 04/13/19 17:20 Haloperidol (Haldol) 1 mg Q30M PRN ORAL Agitation 03/14/19 17:21 04/13/19 17:20 Lorazepam (Ativan 2mg/ml 1ml) 2 mg Q4H PRN IV For Anxiety/seizure 03/14/19 17:21 03/21/19 17:20 Meropenem 1 gm/ Sodium Chloride 55 ml @ 110 mls/hr Q12HR IVPB 03/16/19 00:00 03/21/19 00:00 03/18/19 08:24 Midodrine (Pro-Amatine) 5 mg Q6HR GT 03/17/19 18:00 04/15/19 12:44 03/18/19 05:39 Morphine Sulfate (Morphine Sulfate) 10 mg Q4H PRN IVP tachypnea> 20 and dyspnea 03/14/19 17:21 03/21/19 17:20 Ondansetron HCl (Zofran) 4 mg Q6H PRN IVP Nausea & Vomiting 03/14/19 17:21 04/13/19 17:20 Vancomycin HCl (Vanco rx to dose) 1 ea DAILY PRN MISC Per rx protocol 03/16/19 12:45 04/15/19 12:44 Vancomycin HCl 1 gm/Dextrose 275 ml @ 184 mls/hr Q12H IVPB 03/16/19 02:00 03/21/19 01:59 03/18/19 02:10 Jaylin Dickson MD Mar 18, 2019 12:15
--- NOTE | 2019-03-18 12:37 | Infectious Diseases Prog Note ---
Assessment/Plan Assessment/Plan Assessment: Septic shock, SP- likely 2ry to UTI and PNA Gram positive bacteremia- r/o contaminant vs real -03/17 CXR: Increased interstitial congestion, since prior exam of 2018 however, there is decreased left upper lung hazy opacityOther findings are stable -03/08 CXR: Mildly worsening patchy consolidation throughout the left upper and lower lungs compared to the prior exam, concerning for pneumonia. Persistent mild elevation of the left hemidiaphragm. Cannot exclude small layering left pleural effusion. -u/a wbc tnct, nti neg, leuk +3; ucx >100k P. mirabilis (S Zosyn, Ceftriaxone ; R Cipro) -03/07 Bcx Neg; 03/11 05/31 S. epi; 03/13 BCx NTD -sp cx MRSA, christine albicans -CXR: There is volume loss at the left lung base again noted unchanged. Left hemidiaphragm is elevated. -2d Echo: no vegetations Low grade fever, SP Leukocytosis, recurrent, increased- resolved L stump ulcer -wound cx Neg -femur xray: The patient is status post [id number] amputation on the left. No definite focal osteopenia or bony erosion noted to suggest acute osteomyelitis. JESUS, SP hx of UTI 11/2018, sp Rx --u/a wbc tnct, nit+, leuk +3; ucx >100k P. mirabilis (S Ceftriaxone, Ertapenem, Zosyn) HTN CVA dysphagia s/p GT Dm2 b/l AKA non verbal advanced dementia PVD ND resident Plan: -Resumed IV Vancomycin #3 (abx d #04/10) for MRSA PNA -Continue Meropenem #3 (abx d #12/01) for UTI -03/14 SP IV Vancomycin #8, Meropenem #4 -03/12 SP IV AMikacin #6 -03/11 SP Ertapenem #5 -03/07 SP Zosyn x1 -/ SP Ceftriaxone #3 -12/25 SP IV Vancomycin #3, Cefepime #3 -12/23 SP Flagyl #1 -f/u cx (Bl) -wound care per hospital protocol -goals of care to be defined Thank you for this consultation. Will continue to follow along with you. Discussed with RN Subjective Allergies: Coded Allergies: No Known Allergies (Unverified , 03/07/19) Subjective afebrile no leukocytosis Bcx NTD Objective Vital Signs Last 24 Hour Vital Signs Date Time Temp Pulse Resp B/P (MAP) Pulse Ox O2 Delivery O2 Flow Rate FiO2 03/18/19 09:00 Room Air 03/18/19 08:00 97.0 73 17 101/60 (74) 97 03/18/19 04:00 96.8 71 16 98/62 (74) 95 03/18/19 00:00 96.4 76 18 87/53 (64) 96 03/17/19 21:00 Room Air 03/17/19 20:00 96.3 71 18 84/52 (63) 96 03/17/19 16:00 98.0 88 18 92/57 (69) 99 Height (Feet): 3 Height (Inches): 6.00 Weight (Pounds): 141 Objective General Appearance: moderate distress - Appears diaphoretic and is tachycardic Head: normocephalic, atraumatic Eyes: bilateral eye PERRL, bilateral eye EOMI ENT: dry mucus membranes Neck: supple Respiratory: no retraction, no accessory muscle use, crackles - Bilaterally Cardiovascular: tachycardia Gastrointestinal: non tender, soft, other - Feeding tube in place Musculoskeletal: other - Bilateral [id number] amputations does not follow commands, right upper extremity paralysis Neurologic: other - Patient has eyes open however does not follow commands is not verbal Psychiatric: normal inspection Skin: other - Scars formations bilateral femoral area Laboratory Tests Test 03/17/19 13:05 03/18/19 05:15 Vancomycin Level Trough 17.8 ug/mL (5.0-12.0) H White Blood Count 6.6 K/UL (4.8-10.8) Red Blood Count 3.65 M/UL (4.70-6.10) L Hemoglobin 10.4 G/DL (14.2-18.0) L Hematocrit 32.7 % (42.0-52.0) L Mean Corpuscular Volume 90 FL (80-99) Mean Corpuscular Hemoglobin 28.5 PG (27.0-31.0) Mean Corpuscular Hemoglobin Concent 31.8 G/DL (32.0-36.0) L Red Cell Distribution Width 14.7 % (11.6-14.8) Platelet Count 366 K/UL (150-450) Mean Platelet Volume 5.0 FL (6.5-10.1) L Neutrophils (%) (Auto) 50.2 % (45.0-75.0) Lymphocytes (%) (Auto) 43.2 % (20.0-45.0) Monocytes (%) (Auto) 5.3 % (1.0-10.0) Eosinophils (%) (Auto) 0.7 % (0.0-3.0) Basophils (%) (Auto) 0.5 % (0.0-2.0) Sodium Level 139 MMOL/L (136-145) Potassium Level 3.8 MMOL/L (3.5-5.1) Chloride Level 105 MMOL/L (98-107) Carbon Dioxide Level 28 MMOL/L (21-32) Anion Gap 6 mmol/L (5-15) Blood Urea Nitrogen 10 mg/dL (7-18) Creatinine 0.4 MG/DL (0.55-1.30) L Estimat Glomerular Filtration Rate > 60 mL/min (>60) Glucose Level 89 MG/DL (74-106) Calcium Level 8.6 MG/DL (8.5-10.1) Current Medications Medications (Trade) Dose Ordered Sig/Jennifer Route PRN Reason Start Time Stop Time Status Last Admin Dose Admin Acetaminophen (Tylenol) 650 mg Q4H PRN ORAL fever 03/14/19 17:20 04/13/19 17:19 03/17/19 14:21 Acetaminophen/ Hydrocodone Bitart ([place] 5/325) 1 tab Q6H PRN ORAL Pain 4-10 03/17/19 16:00 03/24/19 15:59 Atropine Sulfate (Atropine Opth Tosha) 1 drop Q2H PRN SL excessive secretions 03/14/19 17:30 04/13/19 17:29 Chlorhexidine Gluconate (Rani-Hex 2%) 1 applic DAILY@2000 TOPIC 03/14/19 20:00 04/06/19 19:59 03/17/19 20:16 Glycopyrrolate (Robinul) 0.1 mg Q6H PRN IV excessive secretions 03/14/19 17:21 04/13/19 17:20 Haloperidol (Haldol) 1 mg Q30M PRN ORAL Agitation 03/14/19 17:21 04/13/19 17:20 Lorazepam (Ativan 2mg/ml 1ml) 2 mg Q4H PRN IV For Anxiety/seizure 03/14/19 17:21 03/21/19 17:20 Meropenem 1 gm/ Sodium Chloride 55 ml @ 110 mls/hr Q12HR IVPB 03/16/19 00:00 03/21/19 00:00 03/18/19 08:24 Midodrine (Pro-Amatine) 5 mg Q6HR GT 03/17/19 18:00 04/15/19 12:44 03/18/19 05:39 Morphine Sulfate (Morphine Sulfate) 10 mg Q4H PRN IVP tachypnea> 20 and dyspnea 03/14/19 17:21 03/21/19 17:20 Ondansetron HCl (Zofran) 4 mg Q6H PRN IVP Nausea & Vomiting 03/14/19 17:21 04/13/19 17:20 Vancomycin HCl (Vanco rx to dose) 1 ea DAILY PRN MISC Per rx protocol 03/16/19 12:45 04/15/19 12:44 Vancomycin HCl 1 gm/Dextrose 275 ml @ 184 mls/hr Q12H IVPB 03/16/19 02:00 03/21/19 01:59 03/18/19 02:10 Deepti Connolly M.D. Mar 18, 2019 12:37
--- NOTE | 2019-03-18 12:45 | Nephrology Progress Note ---
Assessment/Plan Problem List: (1) Renal failure (ARF), acute on chronic (2) Hypernatremia (3) Dehydration (4) Hypokalemia Assessment Acute Renal Failure- ? Underlying CKD Dehydration Sepsis / UTI Dementia PEG s/p CVA s/p Bilateral AKA Decubiti Plan Phos via GT given once Hypotensive- in med surg . full code again meanwhile feeding is resumed Abx resumed On Midodrin again and adjust the dose Subjective ROS Limited/Unobtainable: No Constitutional: Reports: malaise Objective Objective Last 24 Hour Vital Signs Date Time Temp Pulse Resp B/P (MAP) Pulse Ox O2 Delivery O2 Flow Rate FiO2 03/18/19 09:00 Room Air 03/18/19 08:00 97.0 73 17 101/60 (74) 97 03/18/19 04:00 96.8 71 16 98/62 (74) 95 03/18/19 00:00 96.4 76 18 87/53 (64) 96 03/17/19 21:00 Room Air 03/17/19 20:00 96.3 71 18 84/52 (63) 96 03/17/19 16:00 98.0 88 18 92/57 (69) 99 Intake and Output 03/17/19 03/18/19 19:00 07:00 Intake Total 1130 ml 1080 ml Output Total 700 ml Balance 430 ml 1080 ml Free Water 200 ml 200 ml IV Total 330 ml 330 ml Tube Feeding 600 ml 550 ml Output Urine Total 700 ml # Bowel Movements 1 Laboratory Tests 03/17/19 13:05: Vancomycin Level Trough 17.8H 03/18/19 05:15: White Blood Count 6.6, Red Blood Count 3.65L, Hemoglobin 10.4L, Hematocrit 32.7L , Mean Corpuscular Volume 90, Mean Corpuscular Hemoglobin 28.5, Mean Corpuscular Hemoglobin Concent 31.8L, Red Cell Distribution Width 14.7, Platelet Count 366, Mean Platelet Volume 5.0L, Neutrophils (%) (Auto) 50.2, Lymphocytes (%) (Auto) 43.2, Monocytes (%) (Auto) 5.3, Eosinophils (%) (Auto) 0.7, Basophils (%) (Auto) 0.5, Sodium Level 139, Potassium Level 3.8, Chloride Level 105, Carbon Dioxide Level 28, Anion Gap 6, Blood Urea Nitrogen 10, Creatinine 0.4L, Estimat Glomerular Filtration Rate > 60, Glucose Level 89, Calcium Level 8.6 Height (Feet): 3 Height (Inches): 6.00 Weight (Pounds): 141 General Appearance: no apparent distress Cardiovascular: normal rate Respiratory/Chest: decreased breath sounds Abdomen: distended Objective no change Gennaro Cagle MD Mar 18, 2019 12:45
[2019-03-18] MEDS ORDERED: MERREM1 GM IV (13:05)
[2019-03-18] MEDS ORDERED: VANCOMYCIN1 GM/2002 IV (13:05)
--- NOTE | 2019-03-18 13:14 | NUR ---
DISCHARGE PLANNING FAXED CLINICALS TO [facility] AWAIT ROOM NUMBER
[2019-03-18 16:00] VITALS: BP 93/54
--- NOTE | 2019-03-18 16:23 | NUR ---
DISCHARGE PLANNING DISCHARGE ORDER NOTED Patient has been accepted to; [facility] [address] [place] [address] Bed: 53-C Skilled [phone] for Nurse to Nurse report [facility] ETA for transportation: 17:30
--- NOTE | 2019-03-18 17:01 | Internal Med Progress Note ---
Subjective Date of Service: Mar 18, 2019 Physician Name Darrick Stout Attending Physician Yannick Marshall MD Current Medications Medications (Trade) Dose Ordered Sig/Jennifer Route PRN Reason Start Time Stop Time Status Last Admin Dose Admin Acetaminophen (Tylenol) 650 mg Q4H PRN ORAL fever 03/14/19 17:20 04/13/19 17:19 03/17/19 14:21 Acetaminophen/ Hydrocodone Bitart ([place] 5/325) 1 tab Q6H PRN ORAL Pain 4-10 03/17/19 16:00 03/24/19 15:59 Atropine Sulfate (Atropine Opth Tosha) 1 drop Q2H PRN SL excessive secretions 03/14/19 17:30 04/13/19 17:29 Chlorhexidine Gluconate (Rani-Hex 2%) 1 applic DAILY@2000 TOPIC 03/14/19 20:00 04/06/19 19:59 03/17/19 20:16 Glycopyrrolate (Robinul) 0.1 mg Q6H PRN IV excessive secretions 03/14/19 17:21 04/13/19 17:20 Haloperidol (Haldol) 1 mg Q30M PRN ORAL Agitation 03/14/19 17:21 04/13/19 17:20 Lorazepam (Ativan 2mg/ml 1ml) 2 mg Q4H PRN IV For Anxiety/seizure 03/14/19 17:21 03/21/19 17:20 Meropenem 1 gm/ Sodium Chloride 55 ml @ 110 mls/hr Q12HR IVPB 03/16/19 00:00 03/21/19 00:00 03/18/19 08:24 Midodrine (Pro-Amatine) 5 mg Q6HR GT 03/17/19 18:00 04/15/19 12:44 03/18/19 13:09 Morphine Sulfate (Morphine Sulfate) 10 mg Q4H PRN IVP tachypnea> 20 and dyspnea 03/14/19 17:21 03/21/19 17:20 Ondansetron HCl (Zofran) 4 mg Q6H PRN IVP Nausea & Vomiting 03/14/19 17:21 04/13/19 17:20 Vancomycin HCl (Vanco rx to dose) 1 ea DAILY PRN MISC Per rx protocol 03/16/19 12:45 04/15/19 12:44 Vancomycin HCl 1 gm/Dextrose 275 ml @ 184 mls/hr Q12H IVPB 03/16/19 02:00 03/21/19 01:59 03/18/19 13:09 Allergies: Coded Allergies: No Known Allergies (Unverified , 03/07/19) ROS Limited/Unobtainable: No Constitutional: Reports: no symptoms HEENT: Reports: no symptoms Cardiovascular: Reports: no symptoms Respiratory: Reports: no symptoms Gastrointestinal/Abdominal: Reports: no symptoms Genitourinary: Reports: no symptoms Neurologic/Psychiatric: Reports: no symptoms Subjective 68 YO M admitted with hypotension. Now sepsis. Cover for Int Med-Dr Marshall. Now full code. Objective Last Vital Signs Date Time Temp Pulse Resp B/P (MAP) Pulse Ox O2 Delivery O2 Flow Rate FiO2 03/18/19 16:00 97.2 92 18 93/54 (67) 98 03/18/19 09:00 Room Air 03/13/19 07:03 21 03/12/19 12:45 2.0 Laboratory Tests Test 03/18/19 05:15 White Blood Count 6.6 K/UL (4.8-10.8) Red Blood Count 3.65 M/UL (4.70-6.10) L Hemoglobin 10.4 G/DL (14.2-18.0) L Hematocrit 32.7 % (42.0-52.0) L Mean Corpuscular Volume 90 FL (80-99) Mean Corpuscular Hemoglobin 28.5 PG (27.0-31.0) Mean Corpuscular Hemoglobin Concent 31.8 G/DL (32.0-36.0) L Red Cell Distribution Width 14.7 % (11.6-14.8) Platelet Count 366 K/UL (150-450) Mean Platelet Volume 5.0 FL (6.5-10.1) L Neutrophils (%) (Auto) 50.2 % (45.0-75.0) Lymphocytes (%) (Auto) 43.2 % (20.0-45.0) Monocytes (%) (Auto) 5.3 % (1.0-10.0) Eosinophils (%) (Auto) 0.7 % (0.0-3.0) Basophils (%) (Auto) 0.5 % (0.0-2.0) Sodium Level 139 MMOL/L (136-145) Potassium Level 3.8 MMOL/L (3.5-5.1) Chloride Level 105 MMOL/L (98-107) Carbon Dioxide Level 28 MMOL/L (21-32) Anion Gap 6 mmol/L (5-15) Blood Urea Nitrogen 10 mg/dL (7-18) Creatinine 0.4 MG/DL (0.55-1.30) L Estimat Glomerular Filtration Rate > 60 mL/min (>60) Glucose Level 89 MG/DL (74-106) Calcium Level 8.6 MG/DL (8.5-10.1) Intake and Output 03/17/19 03/18/19 19:00 07:00 Intake Total 1130 ml 1080 ml Output Total 700 ml Balance 430 ml 1080 ml Free Water 200 ml 200 ml IV Total 330 ml 330 ml Tube Feeding 600 ml 550 ml Output Urine Total 700 ml # Bowel Movements 1 Objective PHYSICAL EXAMINATION: GENERAL: The patient is awake, opens his eyes, cachectic, malnutrition. HEAD AND NECK: Pupils are equal and reactive to light. Anicteric. Neck was supple. No JVD. LUNGS: Clear. No wheezing or rales. Decreased air in bases. Coarse breath sounds. HEART: S1, S2. Tachycardic. No murmur or gallops. ABDOMEN: Soft, nondistended, and nontender. Positive bowel sounds. G-tube is in place. RECTAL/GENITOURINARY: The patient has a Pelayo catheter. EXTREMITIES: Bilateral AKA was noted with stump intact. NEUROLOGIC: Limited secondary to the patient's status. The patient is moving the left upper extremity. Right upper extremity is flaccid. [employer] II through XII grossly intact, but it is very hard to follow. Neurologic examination is very limited secondary to the patient's status. Assessment/Plan Assessment/Plan ASSESSMENT: 1. Sepsis, septic shock most likely secondary to the urinary tract infection. 2. Acute kidney injury on chronic renal insufficiency due to severe dehydration. 3. Urinary tract infection. 4. Hypertension, presently hypotensive. 5. History of CVA. 6. Dysphagia, status post PEG. 7. Diabetes type 2. 8. Status post bilateral AKA. 9. Advanced dementia. 10. History of stroke with right-sided hemiparesis. 11. Hypernatremia/hypokalemia PLAN: 1. Code status at this time is Full Code 2. Urine culture=Proteus. Continue meropenem and vanco per ID= Dr Connolly 3. restart midodrine per nephrology=Dr newell 4. Discharge to [facility] Darrick Stout MD Mar 18, 2019 17:01
--- NOTE | 2019-03-18 18:25 | NUR ---
NURSE NOTES: Report given to SARAH Edwards at [facility]; Wound care provided and pictures uploaded on patient's file; Dressing for G-Tube feeding changed; I received order from MD Dickson to keep the Pelayo upon discharge: I received order from MD Connolly to keep the Right Subclavian IV access upon discharge;
--- NOTE | 2019-03-18 18:49 | NUR ---
NURSE NOTES: Charge nurseEleazar received a call from [facility]; Allison from [facility] inform the charge nurse that there is gonna be a 45 minutes to one our delay on picking up the patient.
[2019-03-18] MEDS: Dyna-Hex 2% Top Sol 2oz TOPIC SCH (20:00)
--- NOTE | 2019-03-18 20:16 | NUR ---
NURSE NOTES: RECEIVED PT FROM SARAH MERIDA. PT IS AWAKE, AAOX1, ON ROOM AIR, NO ACUTE DISTRESS NOTED. GARG IS NOTED INTACT AND PATENT. DRAINING YELLOW URINE. IV IS INTACT AND PATENT, DRESSING CHANGED 03/18/19. WOUND DRESSING ON SACRAL AND LEFT STUMP ARE DRY AND INTACT. G-TUBE IS INTACT AND PATENT, NO RESIDUALS, FLUSHING WELL. PT IS CURRENTLY WAITING FOR AMBULANCE TO ARRIVE TO TRANSFER TO [facility]. BED IS LOCKED AND LOW, BED ALARMS ACTIVE, SIDE RAILS UP X2, AND CALL LIGHT IS WITHIN REACH.
--- NOTE | 2019-03-18 23:00 | NUR ---
NURSE NOTES: PATIENT WAS SAFELY DISCHARGED WITH EMS. NO BELONGINGS. PT DISCHARGED WITH GARG AND IV. PATIENT IS IN STABLE CONDITION.
[2019-03-18] MEDS ORDERED: NS 500ML ONE (23:25)
--- NOTE | 2019-03-19 10:00 | Discharge Summary ---
Discharge Summary Discharge Summary _ DATE OF ADMISSION: 03/07/2019 DATE OF DISCHARGE: 03/18/2019 DISCHARGED BY: Dr. Marshall REASON FOR ADMISSION: 68 years old male with past medical history significant for hypertension, severe peripheral vascular disease, status post bilateral BKA, CVA with a dysphagia and PEG placement, diabetes mellitus type 2, severe advanced dementia , resident of [facility] facility was brought to emergency room for evaluation due to hypotension and tachycardia. Shortly after initial evaluation she was found to be septic with possible acute kidney injury and history was very limited secondary to patient started being nonverbal. In emergency department patient required placement of central line to start pressor EKG revealed sinus tachycardia no acute ischemic changes. Chest x-ray demonstrated placement of right subclavian line no pneumothorax. Volume loss in the left lung base noted. Laboratory work-up revealed leukocytosis with WBC 13.1, stable hemoglobin hematocrit. Lactic acid 3.0. Sodium 165. Potassium 3.3. BUN 118, hepatic creatinine 1.6. Glucose 205. Troponin 0 0.112. proBNP 2391. Albumin 2.3. Stable LFT and lipase. Uric acid 8.9. Patient admitted to ICU for further management. Septic work-up initiated patient started on fluid resuscitation culture and started on broad- spectrum antibiotics. EKG revealed irregular region likely multifocal atrial tachycardia. CONSULTANTS: costuming supervisor Dr. Wen pulmonary /hospitalist Dr. Dickson cashier and salesperson Dr. Cagle plastic surgeon Dr. Jean lund [facility]: Patient admitted to ICU. Patient started on Levophed drip . Hemodynamic status was closely monitored. Levophed was titrated to keep mean arterial blood pressure above 65. Patient started on broad-spectrum antibiotic as per ID specialist recommendation. Supplemental oxygen provided as needed to keep pulse oximetry above 92%. Pulmonary toilet via bronchodilator therapy provided. Strict aspiration precaution maintained. G-tube feeding restarted. SNF medication resumed. Echocardiogram demonstrated preserved ejection fraction with no evidence of wall motion abnormality. Mild left ventricular hypertrophy. No evidence of pericardial effusion. Right ventricular systolic pressure of 19. Serial troponin were closely monitored, initially minimally elevated with no peak , no leola. EKG and telemetry revealed no acute ischemic changes. Per costuming supervisor, abnormal cardiac enzymes were likely demand related due to sepsis and acute renal failure. Last troponin negative. Blood cultures were negative. Urine culture revealed Proteus. Sputum culture revealed MRSA and Ramya. Repeated blood culture showed Staph epidermidis on 03/11 1 out of 2 and repeated blood culture on 03/13 were negative. Antibiotic regimen was further optimized as per ID specialist recommendation. Patient will need to continue antibiotic at the facility to complete the course as per ID specialist recommendation. Blood culture with gram-positive bacteremia was possibly contamination versus real. Wound culture of left AKA decubitus ulcer was negative. X-ray of the left femur reveal no definite focal osteopenia or bony erosion suggestive of acute osteomyelitis. Plastic surgeon seen and evaluated patient for stage II sacral decubitus ulcer and stage IV left AKA pressure injury. Surgeon recommended treatment for osteomyelitis only if wound culture from pressure injury ulcer left AKA would back positive . Wound culture was negative, as mentioned above. Per surgeon no need for surgical intervention at this time. Wound care provided as per surgical recommendation, continue with wound care at the facility. Patient may need to have revision of left BKA to reduce the tension on the distal skin in the future, as per plastic surgeon. Housekeeping Aid closely followed. Patient was hydrated. Renal ultrasound revealed bilateral echogenic renal sinus foci on the left ; the right likely represent nonobstructive intrarenal calculi. No evidence of hydronephrosis. Renal parameters and electrolytes were closely monitored. Electrolytes corrected as needed. After patient was weaned off Levophed, blood pressure was supported with midodrine. With IV hydration, hypernatremia resolved: sodium from 165 down to 139. Potassium 3.8. All electrolytes stable. Renal parameters improved as well : creatinine from 1.6 on admission down to 0.4 and BUN from 118 down to 10. Acute kidney injury was likely due to dehydration as well as underlying sepsis. Strict aspiration precaution maintained. G-tube feeding continued. Patient was able to tolerate tube feeding. Blood sugar was closely monitored and remained stable. Hemoglobin A1c at goal. Supportive care provided. Bowel regimen instituted. Pain management was addressed as needed. Patient was ready for transfer back to [facility] facility for continuation of care. FINAL DIAGNOSES: Severe sepsis , likely secondary to UTI and pneumonia Septic shock -resolved Proteus UTI MRSA Pneumonia Abnormal cardiac enzyme, demand related Acute kidney injury, likely secondary to severe dehydration - resolved Hypernatremia- resolved Hypokalemia -resolved Dysphagia, feeding by G-tube History of CVA with right-sided hemiparesis Peripheral vascular disease, status post bilateral AKA Diabetes mellitus Advanced dementia Hypotension Stage 4 L AKA decub ulcer, POA Stage 2 sacral decubitus ulcer, POA DISCHARGE MEDICATIONS: See Medication Reconciliation list. DISCHARGE INSTRUCTIONS: Patient was discharged to the [facility] facility. Follow up with medical doctor at the facility. Stephanie Jessica NP Mar 19, 2019 10:00
--- NOTE | 2019-03-19 10:35 | NUR ---
*-* INSURANCE *-* DISCHARGE SUMMARY HAS BEEN FAXED TO: [employer] P: [phone] F: [phone] & [employer] P: [phone] F: [phone]
== END 2019-03-18 23:26 | DRG 871 ==
LOC: EDUNIT# 05:45 → EDBD 05:45 → EMR 06:00 → EDBEDREQ 07:12 → ICU 07:20 → 4E 03-14 17:39
PROC: 05H533Z Insertion of Infusion Device into Right Subclavian Vein, Percutaneous Approach (ICD-10-PCS; principal; 2019-03-07)
DX: A41.9 Sepsis, unspecified organism (principal); L89.894 Pressure ulcer of other site, stage 4; R65.21 Severe sepsis with septic shock; J15.212 Pneumonia due to Methicillin resistant Staphylococcus aureus; N17.9 Acute kidney failure, unspecified; N39.0 Urinary tract infection, site not specified; I69.351 Hemiplegia and hemiparesis following cerebral infarction affecting right dominant side; Z43.1 Encounter for attention to gastrostomy; E87.0 Hyperosmolality and hypernatremia; G93.40 Encephalopathy, unspecified; R13.10 Dysphagia, unspecified; Z89.612 Acquired absence of left leg above knee; Z89.611 Acquired absence of right leg above knee; E86.0 Dehydration; I12.9 Hypertensive chronic kidney disease with stage 1 through stage 4 chronic kidney disease, or unspecified chronic kidney disease; E11.22 Type 2 diabetes mellitus with diabetic chronic kidney disease; Y95 Nosocomial condition; N18.9 Chronic kidney disease, unspecified; B96.4 Proteus (mirabilis) (morganii) as the cause of diseases classified elsewhere; R74.8 Abnormal levels of other serum enzymes; I73.9 Peripheral vascular disease, unspecified; L89.152 Pressure ulcer of sacral region, stage 2; Z79.02 Long term (current) use of antithrombotics/antiplatelets; G30.9 Alzheimer's disease, unspecified; F02.80 Dementia in other diseases classified elsewhere, unspecified severity, without behavioral disturbance, psychotic disturbance, mood disturbance, and anxiety; E87.6 Hypokalemia; E88.09 Other disorders of plasma-protein metabolism, not elsewhere classified
CPT/HCPCS: 36415; 36600; 71045; 76770; 80048; 80053; 80061; 80150; 80202; 81001; 81003; 82533; 82550; 82553; 82803; 82962; 82977; 83036; 83605; 83690; 83735; 83880; 83935; 84100; 84300; 84484; 84550; 85025; 85610; 85651; 85730; 86140; 87040; 87070; 87081; 87086; 87181; 87205; 89050; 93005; 93306; 94640; 94664; 96361; 96365; 96367; 99291; C9399; J1815; J7030; J7620; J8499

== ENCOUNTER 2020-05-24 16:13 | Inpatient (IN) | payer OTHER, MEDICAID ==
[2020-05-24] VITALS (8 sets, daily range): BP systolic 75–99; BP diastolic 50–65
[~2020-05-24] VITALS: Ht 121.9 cm; Wt 45.4 kg
[~2020-05-24 16:13] MED LIST changes: +MERREM1 GM IV; +VANCOMYCIN1 GM/2002 IV
--- NOTE | 2020-05-24 16:20 | Emergency Room Report ---
History of Present Illness General Chief Complaint: Upper Respiratory Illness Source: Patient, EMS (Allan Paul MD) Present Illness HPI Disclaimer: Please note that this report is being documented using DRAGON technology. This can lead to erroneous entry secondary to incorrect interpretation by the dictating instrument. HPI: 69-year-old male with history of CVA, nonverbal but can make needs known, G-tube dependent feeding, hypertension, hyperlipidemia, CHF, oxygen dependent on 3 L baseline presents for evaluation of cough and congestion. Symptoms began this morning. Denies chest pain or pressure. Denies pain of any kind. No fevers reported. Tested negative by rapid testing for COVID-19 earlier today. Patient was saturating 90% on his baseline 3 L and improved to 98% on 4 L nasal cannula. Patient is DNR/DNI and comfort measures only. Sent over for evaluation of cough. PMH: CVA, G-tube dependent, hypertension, hyperlipidemia PSH: G-tube Allergies: Reviewed Social Hx: Reviewed (Allan Paul MD) Allergies: Coded Allergies: No Known Allergies (Unverified , 03/07/19) COVID-19 Screening Contact w/high risk pt: No Experienced COVID-19 symptoms?: Yes COVID-19 Testing performed INSPECTOR PLUMBING: No COVID-19 Screening: Negative COVID-19 COVID-19 Testing Source: 05/24/20 (Allan Paul MD) Nursing Documentation-PMH Hx Hypertension: Yes Hx Diabetes: Yes Hx Cancer: No Hx Cerebrovascular Accident: Yes - cerebral infarction Hx Dementia: Yes (Allan Paul MD) Review of Systems All Other Systems: negative except mentioned in HPI (Allan Paul MD) Physical Exam Vital Signs Date Time Temp Pulse Resp B/P (MAP) Pulse Ox O2 Delivery O2 Flow Rate FiO2 05/24/20 16:10 99.7 90 18 90/58 (69) 98 Nasal Cannula 4.0 General: Awake and alert, no acute distress HEENT: NC/AT. EOMI. Cardiovascular: RRR. S1 and S2 normal. No murmur appreciated Resp: 4 L nasal cannula. Normal work of breathing. Intermittent wet sounding cough. No wheezing. Abdomen: Abdomen is soft, nondistended. Nontender. G-tube in place without signs of surrounding infection Skin: Intact. No abrasions, laceration or rash over the exposed skin MSK: Normal tone and bulk. Moving all extremities. No obvious deformity. Neuro: Awake and alert. Nonverbal but can make needs known and signals through hand gestures. (Allan Paul MD) Procedures Critical Care Time Critical Care Time Total critical care time: Approximately 31 minutes Due to a high probability of clinically significant, life threatening deterioration, the patient required the highest level of preparedness to intervene emergently and I personally spent this critical care time directly and personally managing the patient. This critical care time included obtaining a history, examining the patient, pulse oximetry, ordering and reviewing studies, ordering treatments, evaluating response to treatment and updating management plan as needed, frequent reassessment and discussion with other providers as well as arranging for ultimate disposition. This critical to care time was performed to assess and manage the high probability of life-threatening deterioration that could result in multiorgan failure. This critical care time is separate from the separately billable procedures and treating other patients. (Allan Paul MD) Medical Decision Making Diagnostic Impression: Primary Impression: Hypernatremia Additional Impressions: Dehydration SVT (supraventricular tachycardia) ER Course Is a 69-year-old male presenting for evaluation of cough and congestion. He is DNR/DNI with comfort focused treatment according to POLST form. Saturating within normal limits now on 2 L nasal cannula. No obvious infiltrate on x-ray. EKG is nonischemic. Labs show hypernatremia hyperchloremia with normal renal function. Patient receiving IV fluids. His PMD, Dr. Marshall, will admit the patient. 2000 Patient went into a brief episode of SVT with rate in the 170s. Pressures were borderline. He continues to receive IV fluids. The patient declined rate controlling medications or cardioversion. Appeared to understand the risks of prolonged SVT. Again he is comfort measures according to POLST form. Patient was placed in Trendelenburg and attempted vagal maneuvers which converted him back to sinus rhythm. Admitting team notified. Laboratory Tests Test 05/24/20 16:50 White Blood Count 14.2 K/UL (4.8-10.8) H Red Blood Count 3.69 M/UL (4.70-6.10) L Hemoglobin 10.9 G/DL (14.2-18.0) L Hematocrit 32.6 % (42.0-52.0) L Mean Corpuscular Volume 88 FL (80-99) Mean Corpuscular Hemoglobin 29.5 PG (27.0-31.0) Mean Corpuscular Hemoglobin Concent 33.4 G/DL (32.0-36.0) Red Cell Distribution Width 18.2 % (11.6-14.8) H Platelet Count 183 K/UL (150-450) Mean Platelet Volume 8.7 FL (6.5-10.1) Neutrophils (%) (Auto) 74.1 % (45.0-75.0) Lymphocytes (%) (Auto) 21.2 % (20.0-45.0) Monocytes (%) (Auto) 4.2 % (1.0-10.0) Eosinophils (%) (Auto) 0.3 % (0.0-3.0) Basophils (%) (Auto) 0.2 % (0.0-2.0) Sodium Level 153 MMOL/L (136-145) H Potassium Level 3.2 MMOL/L (3.5-5.1) L Chloride Level 120 MMOL/L (98-107) H Carbon Dioxide Level 26 MMOL/L (21-32) Anion Gap 7 mmol/L (5-15) Blood Urea Nitrogen 44 mg/dL (7-18) H Creatinine 0.9 MG/DL (0.55-1.30) Estimated Glomerular Filtration Rate > 60 mL/min (>60) Glucose Level 131 MG/DL (74-106) H Calcium Level 8.3 MG/DL (8.5-10.1) L Total Bilirubin 0.6 MG/DL (0.2-1.0) Aspartate Amino Transferase (AST) 17 U/L (15-37) Alanine Aminotransferase (ALT) 15 U/L (12-78) Alkaline Phosphatase 83 U/L (46-116) Troponin I 0.026 ng/mL (0.000-0.056) Pro-B-Type Natriuretic Peptide 2602 pg/mL (0-125) H Total Protein 7.6 G/DL (6.4-8.2) Albumin 1.4 G/DL (3.4-5.0) L Globulin 6.2 g/dL Albumin/Globulin Ratio 0.2 (1.0-2.7) L (Allan Paul MD) ER Course Patient once again went into SVT with a heart rate of around 170 bpm. Blood pressure remained stable with a MAP of around 65. I had a detailed discussion with the patient who was agreeable to medical treatment with adenosine. However he once again refused electrical cardioversion. Adenosine 6 mg was given with resolution of his SVT, however it then occurred once again. He was given another 6 mg of adenosine with resolution of his SVT. He remained in normal sinus rhythm after the second dose. EKG: NSR, rate 106 bpm, intervals WNL. No ectopy. Nonspecific ST and T wave depressions in V4 through V6 Rhythm strip: patient monitored for arrhythmias - no malignant dysrhythmias, runs of PVCs, nor pauses noted Total critical care time: Approximately 30 minutes Due to a high probability of clinically significant, life threatening deterioration, the patient required the highest level of preparedness to intervene emergently and I personally spent this critical care time directly and personally managing the patient. This critical care time included obtaining a history, examining the patient, pulse oximetry, ordering and reviewing studies, ordering treatments, evaluating response to treatment and updating management plan as needed, frequent reassessment and discussion with other providers as well as arranging for ultimate disposition. This critical to care time was performed to assess and manage the high probability of life-threatening deterioration that could result in multiorgan failure. This critical care time is separate from the separately billable procedures and treating other patients. (Maynor Bishop M.D.) EKG Diagnostic Results Troponin ordered: Yes When was troponin ordered?: May 24, 2020 EKG Time: 17:00 Rate: tachycardiac Other Impression Sinus tachycardia with PACs. Normal intervals. QTc 453 ms. (Allan Paul MD) Rhythm Strip Diag. Results Rhythm Strip Time: 17:00 EP Interpretation: yes Rate: 115 Rhythm: NSR, no PVC's, no ectopy (Allan Paul MD) Chest X-Ray Diagnostic Results Chest X-Ray Diagnostic Results : Chest X-Ray Ordered: Yes # of Views/Limited/Complete: 1 View Indication: Other - Cough EP Interpretation: Yes Interpretation: no effusion, no pneumothorax, other - Right hemidiaphragm elevation with gas filled loops of bowel. Surgical clips right axilla (Allan Paul MD) Last Vital Signs Date Time Temp Pulse Resp B/P (MAP) Pulse Ox O2 Delivery O2 Flow Rate FiO2 12/28/20 16:10 99.7 90 18 90/58 (69) 98 Nasal Cannula 4.0 (Allan Paul MD) Disposition: ADMITTED INPATIENT Condition: Stable Allan Paul MD May 24, 2020 16:20 Maynor Bishop M.D. May 25, 2020 00:56
[2020-05-24 17:09] LABS: BASOPHILS % (AUTO) 0.2 % (0.0-2.0); EOSINOPHILS % (AUTO) 0.3 % (0.0-3.0); HEMATOCRIT 32.6 % (42.0-52.0); HEMOGLOBIN 10.9 G/DL (14.2-18.0); LYMPHOCYTES % (AUTO) 21.2 % (20.0-45.0); MEAN CORPUSCULAR VOLUME 88 FL (80-99); MONOCYTES % (AUTO) 4.2 % (1.0-10.0); NEUTROPHILS % (AUTO) 74.1 % (45.0-75.0); PLATELET COUNT 183 K/UL (150-450); RED BLOOD COUNT 3.69 M/UL (4.70-6.10); RED CELL DISTRIBUTION WIDTH 18.2 % (11.6-14.8); WHITE BLOOD COUNT 14.2 K/UL (4.8-10.8)
--- NOTE | 2020-05-24 17:13 | Diagnostic Imaging Report ---
Indication: Cough Technique: One view of the chest Comparison: 03/17/2019 Findings: Previously demonstrated central venous catheter is no longer evident. There is persistent elevation left hemidiaphragm and left basilar atelectasis. The lungs and pleural spaces are otherwise clear. The heart size is normal. Surgical clips are seen in the right axilla Impression: No definite acute process Elevated left hemidiaphragm with considerable left basilar atelectasis
[2020-05-24 17:26] LABS: ANION GAP 7 mmol/L (5-15); BLOOD UREA NITROGEN 44 mg/dL (7-18); CALCIUM 8.3 MG/DL (8.5-10.1); CARBON DIOXIDE 26 MMOL/L (21-32); CHLORIDE 120 MMOL/L (98-107); CREATININE 0.9 MG/DL (0.55-1.30); POTASSIUM 3.2 MMOL/L (3.5-5.1); SODIUM 153 MMOL/L (136-145)
[2020-05-24 17:37] LABS: ALANINE AMINOTRANSFERASE 15 U/L (12-78); ALBUMIN 1.4 G/DL (3.4-5.0); ALBUMIN/GLOBULIN RATIO 0.2 (1.0-2.7); ALKALINE PHOSPHATASE 83 U/L (46-116); ASPARTATE AMINO TRANSFERASE 17 U/L (15-37); BILIRUBIN,TOTAL 0.6 MG/DL (0.2-1.0)
[2020-05-24] MEDS ORDERED: Ketorolac 30mg Inj IV ONE (20:45)
[2020-05-24 21:20] LABS: PHOSPHORUS 3.1 MG/DL (2.5-4.9)
[2020-05-24] MEDS ORDERED: dilTIAZem HCl 60mg tab ORAL ONE (21:30)
[2020-05-24] MEDS ORDERED: Miralax 17gm pkt GT PRN (21:30)
[2020-05-24] MEDS ORDERED: Albuterol/Ipratropium 3ml neb HHN PRN (21:30)
[2020-05-24] MEDS ORDERED: Acetaminophen 650mg/20.3ml GT PRN (22:00)
[2020-05-24] MEDS: Piperacillin/Tazobactam 3.375 GM in NS 110 ML IVPB SCH (23:31)
[2020-05-25] VITALS (15 sets, daily range): BP systolic 64–105; BP diastolic 44–59
[2020-05-25] MEDS ORDERED: Adenosine 6mg/2ml Inj ONE
[2020-05-25] MEDS ORDERED: Adenosine 6mg/2ml Inj IVP ONE ×2 (01:00)
[2020-05-25] MEDS ORDERED: Vancomycin 1 GM in D5W 275 ML IVPB SCH (03:00)
[2020-05-25 05:22] LABS: ALBUMIN 1.2 G/DL (3.4-5.0); ANION GAP 9 mmol/L (5-15); BLOOD UREA NITROGEN 45 mg/dL (7-18); CALCIUM 7.3 MG/DL (8.5-10.1); CARBON DIOXIDE 23 MMOL/L (21-32); CHLORIDE 122 MMOL/L (98-107); CREATININE 0.8 MG/DL (0.55-1.30); PHOSPHORUS 3.1 MG/DL (2.5-4.9); POTASSIUM 2.8 MMOL/L (3.5-5.1); SODIUM 154 MMOL/L (136-145)
[2020-05-25 05:26] LABS: BASOPHILS % (AUTO) 0.6 % (0.0-2.0); EOSINOPHILS % (AUTO) 0.1 % (0.0-3.0); HEMATOCRIT 32.6 % (42.0-52.0); HEMOGLOBIN 10.5 G/DL (14.2-18.0); LYMPHOCYTES % (AUTO) 15.4 % (20.0-45.0); MEAN CORPUSCULAR VOLUME 90 FL (80-99); MONOCYTES % (AUTO) 2.7 % (1.0-10.0); NEUTROPHILS % (AUTO) 81.3 % (45.0-75.0); PLATELET COUNT 174 K/UL (150-450); RED BLOOD COUNT 3.62 M/UL (4.70-6.10); RED CELL DISTRIBUTION WIDTH 17.9 % (11.6-14.8); WHITE BLOOD COUNT 9.7 K/UL (4.8-10.8)
[2020-05-25] MEDS: Piperacillin/Tazobactam 3.375 GM in NS 110 ML IVPB SCH ×3 (05:43→22:35)
[2020-05-25] MEDS: Pantoprazole Inj IV SCH (09:16)
[2020-05-25] MEDS: Allopurinol 100mg Tab GT SCH (09:16)
[2020-05-25] MEDS: Heparin 5000 units/ml inj SUBQ SCH ×2 (09:17→21:44)
[2020-05-25] MEDS: D5 1/2NS w/KCl 20mEq 1,000 ML IV SCH (22:34)
[2020-05-26] VITALS: BP 86/54
[2020-05-26 04:00] VITALS: BP 85/56
[2020-05-26] MEDS: Piperacillin/Tazobactam 3.375 GM in NS 110 ML IVPB SCH ×3 (05:32→21:30)
[2020-05-26 08:00] VITALS: BP 88/53
[2020-05-26] MEDS: Allopurinol 100mg Tab GT SCH (08:09)
[2020-05-26] MEDS: Pantoprazole Inj IV SCH ×2 (08:10→21:30)
[2020-05-26] MEDS: Heparin 5000 units/ml inj SUBQ SCH ×2 (08:11→21:28)
[2020-05-26 08:27] LABS: BASOPHILS % (AUTO) 0.2 % (0.0-2.0); EOSINOPHILS % (AUTO) 0.2 % (0.0-3.0); HEMATOCRIT 30.7 % (42.0-52.0); HEMOGLOBIN 9.8 G/DL (14.2-18.0); LYMPHOCYTES % (AUTO) 15.8 % (20.0-45.0); MEAN CORPUSCULAR VOLUME 89 FL (80-99); MONOCYTES % (AUTO) 3.2 % (1.0-10.0); NEUTROPHILS % (AUTO) 80.7 % (45.0-75.0); PLATELET COUNT 204 K/UL (150-450); RED BLOOD COUNT 3.45 M/UL (4.70-6.10); RED CELL DISTRIBUTION WIDTH 18.3 % (11.6-14.8); WHITE BLOOD COUNT 11.7 K/UL (4.8-10.8)
[2020-05-26 08:48] LABS: ALANINE AMINOTRANSFERASE 7 U/L (12-78); ALBUMIN 1.1 G/DL (3.4-5.0); ALBUMIN/GLOBULIN RATIO 0.2 (1.0-2.7); ALKALINE PHOSPHATASE 52 U/L (46-116); ANION GAP 9 mmol/L (5-15); ASPARTATE AMINO TRANSFERASE 24 U/L (15-37); BILIRUBIN,TOTAL 0.6 MG/DL (0.2-1.0); BLOOD UREA NITROGEN 34 mg/dL (7-18); CALCIUM 7.5 MG/DL (8.5-10.1); CARBON DIOXIDE 19 MMOL/L (21-32); CHLORIDE 122 MMOL/L (98-107); CREATININE 0.8 MG/DL (0.55-1.30); PHOSPHORUS 3.6 MG/DL (2.5-4.9); SODIUM 150 MMOL/L (136-145)
--- NOTE | 2020-05-26 09:31 | Consultation ---
History of Present Illness General Date patient seen: May 26, 2020 Chief Complaint: Upper Respiratory Illness Present Illness HPI 69-year-old male with history of CVA, nonverbal, G-tube, , hypertension, CHF, oxygen dependent on 3 L baseline presents for evaluation of cough and conges tion. Symptoms began on day of admission. Denies chest pain or pressure. Patient was saturating 90% on his baseline 3 L and improved to 98% on 4 L nasal cannula. He was found to be dehydrated. He is admitted for further work up. Allergies: Coded Allergies: No Known Allergies (Unverified , 03/07/19) Medication History Scheduled Allopurinol* (Allopurinol*), 100 MG GT DAILY Amino Acids/Protein Hydrolys (Pro-Stat Liquid), 30 ML GT TWICE A DAY, (Reported) Clopidogrel Bisulfate* (Plavix*), 75 MG ORAL DAILY, (Reported) Meropenem (Merrem), 1 GM IV EVERY 12 HOURS Quetiapine Fumarate* (Seroquel*), 12.5 MG ORAL BID Vancomycin/Water For Inj (Peg) (Vancomycin 1 Gram/200 ml Bag), 1 GM IV DAILY Zinc Sulfate (Zinc Sulfate*), 220 MG GT DAILY, (Reported) Scheduled PRN Acetaminophen* (Acetaminophen 325MG Tablet*), 500 MG GT Q4H PRN for Moderate Pain (Pain Scale 4-6), (Reported) Miscellaneous Medications Vit C/Ascorb Sod/Multivit-Min (Emergen-C 500 mg Chewable Tab), 500 MG GT, (Reported) Patient History Healthcare decision maker Resuscitation status Advanced Directive on File Past Medical/Surgical History Past Medical/Surgical History: (1) CVA (cerebral vascular accident) (2) Feeding by G-tube (3) Alzheimer's dementia (4) PVD (peripheral vascular disease) (5) S/P AKA (above knee amputation) bilateral Review of Systems All Other Systems: negative except mentioned in HPI Physical Exam General Appearance: WD/WN, no apparent distress Lines, tubes and drains: peripheral HEENT: normocephalic, atraumatic Neck: non-tender, normal alignment, supple Respiratory/Chest: chest wall non-tender, rhonchi - left, rhonchi - right Breasts: no masses Genitourinary/Rectal: normal genital exam Extremities: normal range of motion Last 24 Hour Vital Signs Date Time Temp Pulse Resp B/P (MAP) Pulse Ox O2 Delivery O2 Flow Rate FiO2 05/26/20 04:00 97.3 94 20 85/56 (66) 95 05/26/20 04:00 90 05/26/20 00:00 92 05/26/20 00:00 97.3 99 86/54 (65) 05/25/20 21:17 Nasal Cannula 3.0 05/25/20 20:15 97.9 102 23 109/79 97 Nasal Cannula 3.0 05/25/20 18:00 98.0 101 25 79/44 97 Nasal Cannula 5.0 05/25/20 16:00 102 25 74/52 99 Nasal Cannula 5.0 05/25/20 14:00 97.9 111 25 82/49 97 Nasal Cannula 5.0 05/25/20 12:00 97.5 102 26 77/51 98 Nasal Cannula 5.0 05/25/20 10:00 97.9 107 29 79/47 97 Nasal Cannula 5.0 Intake and Output 05/25/20 05/26/20 19:00 07:00 Intake Total 0 ml Output Total 200 ml Balance -200 ml Intake IV Total 0 ml Output Urine Total 200 ml # Bowel Movements 1 Laboratory Tests Test 05/26/20 08:21 White Blood Count 11.7 K/UL (4.8-10.8) H Red Blood Count 3.45 M/UL (4.70-6.10) L Hemoglobin 9.8 G/DL (14.2-18.0) L Hematocrit 30.7 % (42.0-52.0) L Mean Corpuscular Volume 89 FL (80-99) Mean Corpuscular Hemoglobin 28.4 PG (27.0-31.0) Mean Corpuscular Hemoglobin Concent 31.9 G/DL (32.0-36.0) L Red Cell Distribution Width 18.3 % (11.6-14.8) H Platelet Count 204 K/UL (150-450) Mean Platelet Volume 7.4 FL (6.5-10.1) Neutrophils (%) (Auto) 80.7 % (45.0-75.0) H Lymphocytes (%) (Auto) 15.8 % (20.0-45.0) L Monocytes (%) (Auto) 3.2 % (1.0-10.0) Eosinophils (%) (Auto) 0.2 % (0.0-3.0) Basophils (%) (Auto) 0.2 % (0.0-2.0) Sodium Level 150 MMOL/L (136-145) H Potassium Level 3.0 MMOL/L (3.5-5.1) L Chloride Level 122 MMOL/L (98-107) H Carbon Dioxide Level 19 MMOL/L (21-32) L Anion Gap 9 mmol/L (5-15) Blood Urea Nitrogen 34 mg/dL (7-18) H Creatinine 0.8 MG/DL (0.55-1.30) Estimat Glomerular Filtration Rate > 60 mL/min (>60) Glucose Level 89 MG/DL (74-106) Calcium Level 7.5 MG/DL (8.5-10.1) L Phosphorus Level 3.6 MG/DL (2.5-4.9) Magnesium Level 2.1 MG/DL (1.8-2.4) Total Bilirubin 0.6 MG/DL (0.2-1.0) Aspartate Amino Transf (AST/SGOT) 24 U/L (15-37) Alanine Aminotransferase (ALT/SGPT) 7 U/L (12-78) L Alkaline Phosphatase 52 U/L (46-116) Total Protein 6.2 G/DL (6.4-8.2) L Albumin 1.1 G/DL (3.4-5.0) L Globulin 5.1 g/dL Albumin/Globulin Ratio 0.2 (1.0-2.7) L Random Vancomycin Level 6.1 ug/mL Height (Feet): 4 Height (Inches): 0.00 Weight (Pounds): 100 Medications Current Medications Medications (Trade) Dose Ordered Sig/Jennifer Route PRN Reason Start Time Stop Time Status Last Admin Dose Admin Acetaminophen (Tylenol) 650 mg Q4H PRN GT Temp >100.5 05/24/20 22:00 06/23/20 21:59 Albuterol/ Ipratropium (Albuterol/ Ipratropium) 3 ml EVERY 4 HOURS PRN HHN Shortness of Breath 05/24/20 21:30 05/29/20 21:29 Allopurinol (Zyloprim) 100 mg DAILY GT 05/25/20 09:00 06/24/20 08:59 05/26/20 08:09 Clopidogrel Bisulfate (Plavix) 75 mg DAILY GT 05/25/20 09:00 06/24/20 08:59 05/26/20 08:10 Dextrose (Dextrose 50%) 25 ml Q30M PRN IV Hypoglycemia 05/24/20 21:30 08/22/20 21:29 Dextrose (Dextrose 50%) 50 ml Q30M PRN IV Hypoglycemia 05/24/20 21:30 08/22/20 21:29 Dextrose/ Electrolytes 1,000 ml @ 75 mls/hr [id number] IV 05/25/20 22:30 06/24/20 22:29 05/25/20 22:34 Heparin Sodium (Porcine) (Heparin 5000 units/ml) 5,000 units EVERY 12 HOURS SUBQ 05/25/20 09:00 07/09/20 08:59 05/26/20 08:11 Ondansetron HCl (Zofran) 4 mg Q6H PRN IVP Nausea & Vomiting 05/24/20 21:30 06/23/20 21:29 Pantoprazole (Protonix) 40 mg DAILY IV 05/25/20 09:00 06/24/20 08:59 05/26/20 08:10 Piperacillin Sod/ Tazobactam Sod 3.375 gm/Sodium Chloride 110 ml @ 27.5 mls/hr EVERY 8 HOURS IVPB 05/25/20 14:00 06/01/20 13:59 05/26/20 05:32 Polyethylene Glycol (Miralax) 17 gm DAILYPRN PRN GT Constipation 05/24/20 21:30 06/23/20 21:29 Quetiapine Fumarate (SEROqueL) 12.5 mg BID GT 05/25/20 09:00 07/09/20 08:59 05/26/20 08:09 Temazepam (Restoril) 15 mg HSPRN PRN GT Insomnia 05/25/20 02:30 05/31/20 21:29 Vancomycin HCl (Vanco pharmacy to dose) 1 ea DAILY PRN MISC Per rx protocol 05/25/20 02:15 06/24/20 02:14 Vancomycin HCl 1 gm/Dextrose 275 ml @ 183.708 mls/hr Q24H IVPB 05/26/20 11:00 05/31/20 10:59 Assessment/Plan Problem List: (1) Dehydration ICD Codes: E86.0 - Dehydration SNOMED: 59599977 (2) Hypernatremia ICD Codes: E87.0 - Hyperosmolality and hypernatremia (3) Decubitus skin ulcer ICD Codes: L89.90 - Pressure ulcer of unspecified site, unspecified stage SNOMED: 187990248 (4) Iron deficiency anemia ICD Codes: D50.9 - Iron deficiency anemia, unspecified SNOMED: 30849872 (5) S/P AKA (above knee amputation) bilateral ICD Codes: Z89.611 - Acquired absence of right leg above knee; Z89.612 - Acquired absence of left leg above knee SNOMED: 79804011, 789294596 (6) CVA (cerebral vascular accident) ICD Codes: I63.9 - Cerebral infarction, unspecified SNOMED: 075439580 (7) Feeding by G-tube ICD Codes: Z93.1 - Gastrostomy status SNOMED: 732101908, 978525020, 570450192 (8) Alzheimer's dementia ICD Codes: G30.9 - Alzheimer's disease, unspecified; F02.80 - Dementia in other diseases classified elsewhere without behavioral disturbance SNOMED: 51778246 Assessment/Plan: renal w/u IV fluids check electrolytes resume Gtube feeding halfway meds reviewed dvt prophylaxis Jaylin Dickson MD May 26, 2020 09:31
[2020-05-26 09:55] LABS: CREATINE KINASE 88 U/L (26-308)
[2020-05-26] MEDS: Vancomycin 1gm in D5W 275ml IVPB SCH (10:42)
[2020-05-26 10:57] LABS: APPEARANCE,URINE SLIGHTLY CLOUDY; BILIRUBIN, URINE NEGATIVE (NEGATIVE); GLUCOSE, URINE (UA) NEGATIVE (NEGATIVE); KETONES,URINE 1+ (NEGATIVE); LEUKOCYTE ESTERASE ,URINE 3+ (NEGATIVE); NITRITE,URINE POSITIVE (NEGATIVE); PH,URINE 5 (4.5-8.0); PROTEIN,URINE 2+ (NEGATIVE); UROBILINOGEN,URINE 1 MG/DL (0.0-1.0)
[2020-05-26 11:26] LABS: COLOR,URINE YELLOW
--- NOTE | 2020-05-26 11:29 | Consultation ---
History of Present Illness General Date patient seen: May 26, 2020 Time patient seen: 11:26 Chief Complaint: Upper Respiratory Illness Referring physician: PCP Reason for Consultation: Pneumonia Present Illness HPI 69yo M from SNF who p/w cough and congestion, ID c/s given r/o pna. Pt is nonverbal from SNF with G-tube, HTN, HLD, h/o CVA. On 3L NC at baseline. Had rapid COVID testing at SNF on day of admission neg. Patient was saturating 90% on his baseline 3 L and improved to 98% on 4 L nasal cannula. In house, pt has been AF, HDS on 3L NC satting 94% Had initial leukocytosis to 14 which is now improving. NAD in bed, not interactive POLST states "comfort focused measures" Allergies: Coded Allergies: No Known Allergies (Unverified , 03/07/19) Medication History Scheduled Allopurinol* (Allopurinol*), 100 MG GT DAILY Amino Acids/Protein Hydrolys (Pro-Stat Liquid), 30 ML GT TWICE A DAY, (Reported) Clopidogrel Bisulfate* (Plavix*), 75 MG ORAL DAILY, (Reported) Meropenem (Merrem), 1 GM IV EVERY 12 HOURS Quetiapine Fumarate* (Seroquel*), 12.5 MG ORAL BID Vancomycin/Water For Inj (Peg) (Vancomycin 1 Gram/200 ml Bag), 1 GM IV DAILY Zinc Sulfate (Zinc Sulfate*), 220 MG GT DAILY, (Reported) Scheduled PRN Acetaminophen* (Acetaminophen 325MG Tablet*), 500 MG GT Q4H PRN for Moderate Pain (Pain Scale 4-6), (Reported) Miscellaneous Medications Vit C/Ascorb Sod/Multivit-Min (Emergen-C 500 mg Chewable Tab), 500 MG GT, (R eported) Patient History Limited by: medical condition Healthcare decision maker Resuscitation status Advanced Directive on File Review of Systems ROS Narrative Unable to assess 2/2 pt condition Physical Exam Physical Exam Narrative Gen: NAD HEENT: NCAT Pulm: BL chest rise on NC Abd: Soft, NTND, PEG Ext: No c/c/e. S/p BL AKA Neuro: Awake, not interactive Last 24 Hour Vital Signs Date Time Temp Pulse Resp B/P (MAP) Pulse Ox O2 Delivery O2 Flow Rate FiO2 05/26/20 09:00 Nasal Cannula 3.0 05/26/20 08:00 96.5 102 20 88/53 (65) 94 05/26/20 08:00 93 05/26/20 04:00 97.3 94 20 85/56 (66) 95 05/26/20 04:00 90 05/26/20 00:00 92 05/26/20 00:00 97.3 99 86/54 (65) 05/25/20 21:17 Nasal Cannula 3.0 05/25/20 20:15 97.9 102 23 109/79 97 Nasal Cannula 3.0 05/25/20 18:00 98.0 101 25 79/44 97 Nasal Cannula 5.0 05/25/20 16:00 102 25 74/52 99 Nasal Cannula 5.0 05/25/20 14:00 97.9 111 25 82/49 97 Nasal Cannula 5.0 05/25/20 12:00 97.5 102 26 77/51 98 Nasal Cannula 5.0 Intake and Output 05/25/20 05/26/20 19:00 07:00 Intake Total 0 ml Output Total 200 ml Balance -200 ml Intake IV Total 0 ml Output Urine Total 200 ml # Bowel Movements 1 Laboratory Tests Test 05/26/20 08:21 05/26/20 10:40 White Blood Count 11.7 K/UL (4.8-10.8) H Red Blood Count 3.45 M/UL (4.70-6.10) L Hemoglobin 9.8 G/DL (14.2-18.0) L Hematocrit 30.7 % (42.0-52.0) L Mean Corpuscular Volume 89 FL (80-99) Mean Corpuscular Hemoglobin 28.4 PG (27.0-31.0) Mean Corpuscular Hemoglobin Concent 31.9 G/DL (32.0-36.0) L Red Cell Distribution Width 18.3 % (11.6-14.8) H Platelet Count 204 K/UL (150-450) Mean Platelet Volume 7.4 FL (6.5-10.1) Neutrophils (%) (Auto) 80.7 % (45.0-75.0) H Lymphocytes (%) (Auto) 15.8 % (20.0-45.0) L Monocytes (%) (Auto) 3.2 % (1.0-10.0) Eosinophils (%) (Auto) 0.2 % (0.0-3.0) Basophils (%) (Auto) 0.2 % (0.0-2.0) Sodium Level 150 MMOL/L (136-145) H Potassium Level 3.0 MMOL/L (3.5-5.1) L Chloride Level 122 MMOL/L (98-107) H Carbon Dioxide Level 19 MMOL/L (21-32) L Anion Gap 9 mmol/L (5-15) Blood Urea Nitrogen 34 mg/dL (7-18) H Creatinine 0.8 MG/DL (0.55-1.30) Estimat Glomerular Filtration Rate > 60 mL/min (>60) Glucose Level 89 MG/DL (74-106) Uric Acid 3.9 MG/DL (2.6-7.2) Calcium Level 7.5 MG/DL (8.5-10.1) L Phosphorus Level 3.6 MG/DL (2.5-4.9) Magnesium Level 2.1 MG/DL (1.8-2.4) Total Bilirubin 0.6 MG/DL (0.2-1.0) Aspartate Amino Transf (AST/SGOT) 24 U/L (15-37) Alanine Aminotransferase (ALT/SGPT) 7 U/L (12-78) L Alkaline Phosphatase 52 U/L (46-116) Total Creatine Kinase 88 U/L (26-308) Total Protein 6.2 G/DL (6.4-8.2) L Albumin 1.1 G/DL (3.4-5.0) L Globulin 5.1 g/dL Albumin/Globulin Ratio 0.2 (1.0-2.7) L Random Vancomycin Level 6.1 ug/mL Urine Color Pending Urine Appearance Pending Urine pH Pending Urine Specific [place] Pending Urine Protein Pending Urine Glucose (UA) Pending Urine Ketones Pending Urine Blood Pending Urine Nitrite Pending Urine Bilirubin Pending Urine Urobilinogen Pending Urine Leukocyte Esterase Pending Urine RBC Pending Urine WBC Pending Urine Squamous Epithelial Cells Pending Urine Bacteria Pending Urine Eosinophils Pending Urine Random Sodium 25 mmol/L (20-110) Urine Potassium Timed 30 mmol/L (12-62) Height (Feet): 4 Height (Inches): 0.00 Weight (Pounds): 100 Medications Current Medications Medications (Trade) Dose Ordered Sig/Jennifer Route PRN Reason Start Time Stop Time Status Last Admin Dose Admin Acetaminophen (Tylenol) 650 mg Q4H PRN GT Temp >100.5 05/24/20 22:00 06/23/20 21:59 Albuterol/ Ipratropium (Albuterol/ Ipratropium) 3 ml EVERY 4 HOURS PRN HHN Shortness of Breath 05/24/20 21:30 05/29/20 21:29 Allopurinol (Zyloprim) 100 mg DAILY GT 05/25/20 09:00 06/24/20 08:59 05/26/20 08:09 Clopidogrel Bisulfate (Plavix) 75 mg DAILY GT 05/25/20 09:00 06/24/20 08:59 05/26/20 08:10 Dextrose (Dextrose 50%) 25 ml Q30M PRN IV Hypoglycemia 05/24/20 21:30 08/22/20 21:29 Dextrose (Dextrose 50%) 50 ml Q30M PRN IV Hypoglycemia 05/24/20 21:30 08/22/20 21:29 Dextrose/ Electrolytes 1,000 ml @ 75 mls/hr [id number] IV 05/25/20 22:30 06/24/20 22:29 05/25/20 22:34 Heparin Sodium (Porcine) (Heparin 5000 units/ml) 5,000 units EVERY 12 HOURS SUBQ 05/25/20 09:00 07/09/20 08:59 05/26/20 08:11 Ondansetron HCl (Zofran) 4 mg Q6H PRN IVP Nausea & Vomiting 05/24/20 21:30 06/23/20 21:29 Pantoprazole (Protonix) 40 mg DAILY IV 05/25/20 09:00 06/24/20 08:59 05/26/20 08:10 Piperacillin Sod/ Tazobactam Sod 3.375 gm/Sodium Chloride 110 ml @ 27.5 mls/hr EVERY 8 HOURS IVPB 05/25/20 14:00 06/01/20 13:59 05/26/20 05:32 Polyethylene Glycol (Miralax) 17 gm DAILYPRN PRN GT Constipation 05/24/20 21:30 06/23/20 21:29 Quetiapine Fumarate (SEROqueL) 12.5 mg BID GT 05/25/20 09:00 07/09/20 08:59 05/26/20 08:09 Temazepam (Restoril) 15 mg HSPRN PRN GT Insomnia 05/25/20 02:30 05/31/20 21:29 Vancomycin HCl (Vanco pharmacy to dose) 1 ea DAILY PRN MISC Per rx protocol 05/25/20 02:15 06/24/20 02:14 Vancomycin HCl 1 gm/Dextrose 275 ml @ 183.708 mls/hr Q24H IVPB 05/26/20 11:00 05/31/20 10:59 05/26/20 10:42 Assessment/Plan Assessment/Plan: 69yo M with: R/o pna R/o COVID Cough, congestion Afebrile Leukocytosis to 14, improving Lymphopenia 05/24 Resp cx p CXR: No acute process 05/26 UA p Cr 0.8 HTN HLD H/o CVA Non-verbal PEG Plan: Per POLST, pt would like comfort focused measures only - recommend stopping IV abx and focusing on pain relief and end of life care per POLST. Cont empiric vanco/Zosyn #2 for now if pursuing full care COVID PCR / rapid test if pursuing full care F/u MRSA nares, UA F/u resp cx Monitor CBC/CMP Monitor resp status Monitor temp curve, hemodynamics D/w RN Thank you for this consult. [facility] will continue to follow. Abi Hernandez M.D. May 26, 2020 11:29
--- NOTE | 2020-05-26 11:52 | Consultation ---
Consult Note Consult Note I am asked to evaluate the patient at the request of Dr. Marshall for fluid and electrolyte management Chief Complaint: Upper Respiratory Illness HPI: 69-year-old male with history of CVA, nonverbal but can make needs known, G-tube dependent feeding, hypertension, hyperlipidemia, CHF, oxygen dependent on 3 L baseline presents for evaluation of cough and congestion. Symptoms began this morning. Denies chest pain or pressure. Denies pain of any kind. No fevers reported. Tested negative by rapid testing for COVID-19 earlier today. Patient was saturating 90% on his baseline 3 L and improved to 98% on 4 L nasal cannula. Patient is DNR/DNI and comfort measures only. Sent over for evaluation of cough. 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 S/p BL AKA Neuro: Awake, not interactive IMAGING: A chest x-ray revealed left basilar atelectasis consistent with pneumonia. LABORATORY STUDIES: WBC 14.2, hemoglobin 10.9, hematocrit 32.6, platelets 183,000. Sodium 153, potassium 3.2, chloride 120, CO2 26, BUN 24, creatinine 0.9. Glucose 131. COVID-19 was reported as negative. . . Assessment/Plan Dehydration, hypernatremia Hypoalbuminemia Anemia UTI History of CVA Status post PEG Dementia Peripheral vascular disease Previous AKA Slow hydrate with free water Potassium supplement Antibiotics Avoid nephrotoxic's Monitor renal parameters and electrolytes Per orders Gennaro Cagle MD May 26, 2020 11:52
[2020-05-26] MEDS: D5 1/2NS w/KCl 20mEq 1,000 ML IV SCH (11:56)
[2020-05-26 12:00] VITALS: BP 88/51
--- NOTE | 2020-05-26 15:18 | Cardiac Electrophysiology PN ---
Subjective Subjective [id number] Objective Last 24 Hour Vital Signs Date Time Temp Pulse Resp B/P (MAP) Pulse Ox O2 Delivery O2 Flow Rate FiO2 05/26/20 12:00 97.9 103 26 88/51 (63) 98 05/26/20 12:00 98 05/26/20 09:00 Nasal Cannula 3.0 05/26/20 08:00 96.5 102 20 88/53 (65) 94 05/26/20 08:00 93 05/26/20 04:00 97.3 94 20 85/56 (66) 95 05/26/20 04:00 90 05/26/20 00:00 92 05/26/20 00:00 97.3 99 86/54 (65) 05/25/20 21:17 Nasal Cannula 3.0 05/25/20 20:15 97.9 102 23 109/79 97 Nasal Cannula 3.0 05/25/20 18:00 98.0 101 25 79/44 97 Nasal Cannula 5.0 05/25/20 16:00 102 25 74/52 99 Nasal Cannula 5.0 Intake and Output 05/25/20 05/26/20 19:00 07:00 Intake Total 0 ml Output Total 200 ml Balance -200 ml Intake IV Total 0 ml Output Urine Total 200 ml # Bowel Movements 1 Laboratory Tests Test 05/26/20 08:21 05/26/20 10:40 White Blood Count 11.7 K/UL (4.8-10.8) H Red Blood Count 3.45 M/UL (4.70-6.10) L Hemoglobin 9.8 G/DL (14.2-18.0) L Hematocrit 30.7 % (42.0-52.0) L Mean Corpuscular Volume 89 FL (80-99) Mean Corpuscular Hemoglobin 28.4 PG (27.0-31.0) Mean Corpuscular Hemoglobin Concent 31.9 G/DL (32.0-36.0) L Red Cell Distribution Width 18.3 % (11.6-14.8) H Platelet Count 204 K/UL (150-450) Mean Platelet Volume 7.4 FL (6.5-10.1) Neutrophils (%) (Auto) 80.7 % (45.0-75.0) H Lymphocytes (%) (Auto) 15.8 % (20.0-45.0) L Monocytes (%) (Auto) 3.2 % (1.0-10.0) Eosinophils (%) (Auto) 0.2 % (0.0-3.0) Basophils (%) (Auto) 0.2 % (0.0-2.0) Sodium Level 150 MMOL/L (136-145) H Potassium Level 3.0 MMOL/L (3.5-5.1) L Chloride Level 122 MMOL/L (98-107) H Carbon Dioxide Level 19 MMOL/L (21-32) L Anion Gap 9 mmol/L (5-15) Blood Urea Nitrogen 34 mg/dL (7-18) H Creatinine 0.8 MG/DL (0.55-1.30) Estimat Glomerular Filtration Rate > 60 mL/min (>60) Glucose Level 89 MG/DL (74-106) Uric Acid 3.9 MG/DL (2.6-7.2) Calcium Level 7.5 MG/DL (8.5-10.1) L Phosphorus Level 3.6 MG/DL (2.5-4.9) Magnesium Level 2.1 MG/DL (1.8-2.4) Total Bilirubin 0.6 MG/DL (0.2-1.0) Aspartate Amino Transf (AST/SGOT) 24 U/L (15-37) Alanine Aminotransferase (ALT/SGPT) 7 U/L (12-78) L Alkaline Phosphatase 52 U/L (46-116) Total Creatine Kinase 88 U/L (26-308) Total Protein 6.2 G/DL (6.4-8.2) L Albumin 1.1 G/DL (3.4-5.0) L Globulin 5.1 g/dL Albumin/Globulin Ratio 0.2 (1.0-2.7) L Random Vancomycin Level 6.1 ug/mL Urine Color Yellow Urine Appearance Slightly cloudy Urine pH 5 (4.5-8.0) Urine Specific [place] 1.015 (1.005-1.035) Urine Protein 2+ (NEGATIVE) H Urine Glucose (UA) Negative (NEGATIVE) Urine Ketones 1+ (NEGATIVE) H Urine Blood 5+ (NEGATIVE) H Urine Nitrite Positive (NEGATIVE) H Urine Bilirubin Negative (NEGATIVE) Urine Urobilinogen 1 MG/DL (0.0-1.0) H Urine Leukocyte Esterase 3+ (NEGATIVE) H Urine RBC 5-10 /HPF (0 - 0) H Urine WBC 60-80 /HPF (0 - 0) H Urine Squamous Epithelial Cells Occasional /LPF Urine Bacteria Few /HPF (NONE) Urine Eosinophils None seen (NONE SEEN) Urine Random Sodium 25 mmol/L (20-110) Urine Potassium Timed 30 mmol/L (12-62) Duong Chavez MD May 26, 2020 15:18
[2020-05-26 16:00] VITALS: BP 98/57
--- NOTE | 2020-05-26 17:15 | Consultation ---
DATE OF CONSULTATION: 05/26/2020 CARDIOLOGY CONSULTATION CONSULTING PHYSICIAN: Duong Chavez MD REFERRING PHYSICIAN: Yannick Marshall MD REASON FOR CONSULTATION: Hypotension. HISTORY OF PRESENT ILLNESS: Patient is a 69-year-old gentleman with history of hypertension and CVA who is nonverbal and status post G-tube placement and is oxygen dependent on 3 L at baseline, who was brought to the emergency room for cough and congestion that started on the day of admission. Patient was saturating 90% on his baseline 3 L that improved to 98% on 4 L nasal cannula. Patient is DNR/DNI. Patient is not on any blood pressure medication on admission, status post bilateral [id number] amputation. REVIEW OF SYSTEMS: Cannot be obtained. PAST MEDICAL HISTORY: As mentioned above. FAMILY HISTORY: Noncontributory. SOCIAL HISTORY: No history of smoking or drinking or using alcohol. PHYSICAL EXAMINATION: VITAL SIGNS: Show blood pressure of 85/51, pulse of 103, respirations 18, temperature 98. HEAD AND NECK: Showed no JVD. LUNGS: Coarse rhonchi. CARDIOVASCULAR: Shows regular S1 and S2 with no gallop or murmur. ABDOMEN: Soft. EXTREMITIES: Status post bilateral above-knee amputation. LABORATORY AND DIAGNOSTIC DATA: His labs show white count 11.7, hemoglobin , hematocrit 30, and platelet count is 204. Sodium is 150, potassium , BUN of 34, creatinine of 0.8. Initial BUN was 44. Initial sodium was 153. BNP is 2600. ASSESSMENT AND PLAN: 1. Hypotension. Blood pressure improved with IV fluids. Sodium was high, likely dehydrated. Start the patient also on midodrine 5 mg 3 times daily. EKG showed lateral ischemia. 2. Dysphagia, status post PEG placement. 3. Respiratory failure, on 3 liters nasal cannula. 4. CVA. 5. Nonverbal status. 6. DNR/DNI. 7. Hypokalemia. Potassium was replaced. Thank you very much for allowing me to participate in the care of this patient. Please do not hesitate to contact me for any questions regarding my evaluation. Duong Chavez M.D. DR: MICHAEL JOB#: [id number] CC:
--- NOTE | 2020-05-26 17:18 | History & Physical ---
History and Physical History & Physicial Dictated for Int Med-DR Marshall no. [id number]. Darrick Stout MD May 26, 2020 17:18
[2020-05-26 20:00] VITALS: BP 85/54
--- NOTE | 2020-05-26 20:45 | History and Physical Report ---
DATE OF ADMISSION: 05/24/2020 CHIEF COMPLAINT: The patient is a 69-year-old male, who presents with a chief complaint of cough and congestion. HISTORY OF PRESENT ILLNESS: The patient is a resident of [facility]. According to staff at rehab of [facility], the patient began to experience cough and congestion two days prior to admission. The patient was transferred to [facility] emergency room for evaluation. The patient is admitted with cough and congestion to rule out COVID-19 pneumonia. REVIEW OF SYSTEMS: Unable to assess secondary to the patient's mental status. PAST MEDICAL HISTORY: Significant for: 1. Cerebrovascular accident. 2. Right-sided hemiparesis. 3. Peripheral vascular disease, status post [id number]-[id number] amputation. 4. Hypertension. 5. Diabetes type 2. 6. Dementia. 7. Dysphagia, status post PEG placement. PAST SURGICAL HISTORY: Significant for: 1. Ktbdy-ssf-algl amputation. 2. PEG placement. CURRENT MEDICATIONS: 1. Allopurinol 100 mg per G-tube daily. 2. Plavix 75 mg per G-tube daily. 3. Seroquel 12.5 mg per G-tube twice daily. 4. Vitamin C 500 mg per G-tube daily. 5. Zinc sulfate 220 mg per G-tube daily. ALLERGIES: No known drug allergies. SOCIAL HISTORY: The patient is single and is a resident of [facility]. The patient denies tobacco or alcohol use. PHYSICAL EXAMINATION: VITAL SIGNS: Temperature 99.7, respirations 18, pulse 98, blood pressure 90/58. Pulse oximetry 98% on 4 liters nasal cannula. GENERAL: The patient is a well-developed and well-nourished male, in no apparent distress. HEENT: Eyes, pupils are equal responsive to light and accommodation. Extraocular movements are intact. NECK: Supple without lymphadenopathy. CHEST: Lungs are clear to auscultation bilaterally without wheezes or rales. CARDIOVASCULAR: Regular rhythm and rate. S1, S2 normal without murmurs, rubs, or gallops. ABDOMEN: Soft, nontender, and nondistended. Positive bowel sounds. No evidence of hepatosplenomegaly. Currently, no rebound or guarding noted. EXTREMITIES: Negative for clubbing, cyanosis, or edema. RECTAL/GENITAL: Not performed. NEUROLOGIC: Cranial nerves II through XII are grossly intact without focal deficits. IMAGING: A chest x-ray revealed left basilar atelectasis consistent with pneumonia. LABORATORY STUDIES: WBC 14.2, hemoglobin 10.9, hematocrit 32.6, platelets 183,000. Sodium 153, potassium 3.2, chloride 120, CO2 26, BUN 24, creatinine 0.9. Glucose 131. COVID-19 was reported as negative. ASSESSMENT: This is a 69-year-old male with: 1. Respiratory failure. 2. Left lower lobe pneumonia. 3. Cerebrovascular disease, status post cerebrovascular accident. 4. Hypertension. 5. Hypercholesterolemia. 6. Congestive heart failure. 7. Dysphagia. 8. Dkuar-udj-fyxr amputation. TREATMENT: 1. Respiratory failure/left lower lobe pneumonia. Pulmonary consultation has been obtained with Dr. Jaylin Dickson. The patient has been placed empirically on intravenous Zosyn and vancomycin. The patient is currently tolerating nasal cannula at 4 to 5 liters of oxygen. We will follow recommendations of Pulmonary. 2. Cerebrovascular disease, status post cerebrovascular accident. 3. Right-sided hemiparesis. 4. History of peripheral vascular disease, status post xvgag-xri-jlom amputation. 5. Hypertension. 6. Diabetes type 2. 7. Alzheimer's dementia. 8. Dysphagia, status post PEG placement. 9. Congestive heart failure. Darrick Stout M.D. DR: TIMOTHY JOB#: [id number] CC:
[2020-05-27] VITALS: BP 83/50
[2020-05-27 04:00] VITALS: BP 98/57
[2020-05-27 06:00] VITALS: BP 98/57
[2020-05-27] MEDS: Piperacillin/Tazobactam 3.375 GM in NS 110 ML IVPB SCH ×2 (06:08→14:02)
[2020-05-27 07:34] LABS: INR 1.1 (0.9-1.1)
[2020-05-27 08:00] VITALS: BP 100/60
[2020-05-27 08:02] LABS: HEMATOCRIT 33.7 % (42.0-52.0); HEMOGLOBIN 9.8 G/DL (14.2-18.0); MEAN CORPUSCULAR VOLUME 98 FL (80-99); PLATELET COUNT 245 K/UL (150-450); RED BLOOD COUNT 3.44 M/UL (4.70-6.10); RED CELL DISTRIBUTION WIDTH 17.3 % (11.6-14.8); WHITE BLOOD COUNT 8.4 K/UL (4.8-10.8)
[2020-05-27 08:17] LABS: ALANINE AMINOTRANSFERASE 18 U/L (12-78); ALBUMIN 1.2 G/DL (3.4-5.0); ALBUMIN/GLOBULIN RATIO 0.2 (1.0-2.7); ALKALINE PHOSPHATASE 60 U/L (46-116); ANION GAP 9 mmol/L (5-15); ASPARTATE AMINO TRANSFERASE 31 U/L (15-37); BILIRUBIN,TOTAL 0.5 MG/DL (0.2-1.0); BLOOD UREA NITROGEN 22 mg/dL (7-18); CALCIUM 7.5 MG/DL (8.5-10.1); CARBON DIOXIDE 21 MMOL/L (21-32); CHLORIDE 117 MMOL/L (98-107); CREATININE 0.8 MG/DL (0.55-1.30); LACTATE DEHYDROGENASE 154 U/L (81-234); PHOSPHORUS 2.3 MG/DL (2.5-4.9); POTASSIUM 3.4 MMOL/L (3.5-5.1); SODIUM 147 MMOL/L (136-145)
[2020-05-27] MEDS: Heparin 5000 units/ml inj SUBQ SCH (08:25)
[2020-05-27] MEDS: Pantoprazole Inj IV SCH (08:26)
--- NOTE | 2020-05-27 08:45 | Infectious Diseases Prog Note ---
Assessment/Plan 69yo M with: R/o pna R/o COVID Cough, congestion Afebrile Leukocytosis to 14, improving Lymphopenia 05/24 Resp cx p CXR: No acute process 05/26 UA +, UCx p COVID rapid test neg, PCR p Cr 0.8 HTN HLD H/o CVA Non-verbal PEG Plan: Per [facility], pt would like comfort focused measures only - recommend stopping IV abx and focusing on pain relief and end of life care per [facility]. Cont empiric vanco/Zosyn #3 for now if pursuing full care F/u COVID PCR F/u UCx F/u MRSA nares F/u resp cx Monitor CBC/CMP Monitor resp status Monitor temp curve, hemodynamics D/w RN Thank you for this consult. [facility] will continue to follow. Subjective Allergies: Coded Allergies: No Known Allergies (Unverified , 03/07/19) AF WBC improving to 8 COVID rapid testing neg NAD in bed on 3L NC Objective Last 24 Hour Vital Signs Date Time Temp Pulse Resp B/P (MAP) Pulse Ox O2 Delivery O2 Flow Rate FiO2 05/27/20 04:00 103 05/27/20 04:00 97.8 102 24 98/57 (71) 97 05/27/20 00:00 86 05/27/20 00:00 97.8 93 24 83/50 (61) 95 05/26/20 21:00 Nasal Cannula 3.0 05/26/20 20:00 97.9 90 24 85/54 (64) 98 05/26/20 20:00 86 05/26/20 16:00 97.9 103 24 98/57 (71) 99 05/26/20 16:00 102 05/26/20 12:00 97.9 103 26 88/51 (63) 98 05/26/20 12:00 98 05/26/20 09:00 Nasal Cannula 3.0 Height (Feet): 4 Height (Inches): 0.00 Weight (Pounds): 100 Gen: NAD HEENT: NCAT Pulm: BL chest rise Abd: Non-distended Ext: No c/c/e. S/p BLE AKA Skin: No visible rashes Neuro: Awake Microbiology Date/Time Source Procedure Growth Status 05/26/20 14:43 Rectum Received 05/26/20 14:30 Nasopharynx SARS-CoV-2 RdRp Gene Assay - Final Complete Laboratory Tests Test 05/26/20 10:40 05/27/20 06:00 05/27/20 06:35 Urine Color Yellow Urine Appearance Slightly cloudy Urine pH 5 (4.5-8.0) Urine Specific [place] 1.015 (1.005-1.035) Urine Protein 2+ (NEGATIVE) H Urine Glucose (UA) Negative (NEGATIVE) Urine Ketones 1+ (NEGATIVE) H Urine Blood 5+ (NEGATIVE) H Urine Nitrite Positive (NEGATIVE) H Urine Bilirubin Negative (NEGATIVE) Urine Urobilinogen 1 MG/DL (0.0-1.0) H Urine Leukocyte Esterase 3+ (NEGATIVE) H Urine RBC 5-10 /HPF (0 - 0) H Urine WBC 60-80 /HPF (0 - 0) H Urine Squamous Epithelial Cells Occasional /LPF Urine Bacteria Few /HPF (NONE) Urine Eosinophils None seen (NONE SEEN) Urine Random Sodium 25 mmol/L (20-110) Urine Potassium Timed 30 mmol/L (12-62) Troponin I 0.043 ng/mL (0.000-0.056) White Blood Count 8.4 K/UL (4.8-10.8) Red Blood Count 3.44 M/UL (4.70-6.10) L Hemoglobin 9.8 G/DL (14.2-18.0) L Hematocrit 33.7 % (42.0-52.0) L Mean Corpuscular Volume 98 FL (80-99) # Mean Corpuscular Hemoglobin 28.6 PG (27.0-31.0) Mean Corpuscular Hemoglobin Concent 29.2 G/DL (32.0-36.0) L Red Cell Distribution Width 17.3 % (11.6-14.8) H Platelet Count 245 K/UL (150-450) Mean Platelet Volume 7.8 FL (6.5-10.1) Neutrophils (%) (Auto) % (45.0-75.0) Lymphocytes (%) (Auto) % (20.0-45.0) Monocytes (%) (Auto) % (1.0-10.0) Eosinophils (%) (Auto) % (0.0-3.0) Basophils (%) (Auto) % (0.0-2.0) Neutrophils % (Manual) Pending Lymphocytes % (Manual) Pending Platelet Estimate Pending Platelet Morphology Pending Erythrocyte Sedimentation Rate Pending Reticulocyte Count Pending Prothrombin Time 11.6 SEC (9.30-11.50) H Prothromb Time International Ratio 1.1 (0.9-1.1) Activated Partial Thromboplast Time 33 SEC (23-33) Sodium Level 147 MMOL/L (136-145) H Potassium Level 3.4 MMOL/L (3.5-5.1) L Chloride Level 117 MMOL/L (98-107) H Carbon Dioxide Level 21 MMOL/L (21-32) Anion Gap 9 mmol/L (5-15) Blood Urea Nitrogen 22 mg/dL (7-18) H Creatinine 0.8 MG/DL (0.55-1.30) Estimat Glomerular Filtration Rate > 60 mL/min (>60) Glucose Level 106 MG/DL (74-106) Hemoglobin A1c Pending Uric Acid 2.9 MG/DL (2.6-7.2) Calcium Level 7.5 MG/DL (8.5-10.1) L Phosphorus Level 2.3 MG/DL (2.5-4.9) L Magnesium Level 2.0 MG/DL (1.8-2.4) Iron Level Pending Unsaturated Iron Binding Pending Total Bilirubin 0.5 MG/DL (0.2-1.0) Aspartate Amino Transf (AST/SGOT) 31 U/L (15-37) Alanine Aminotransferase (ALT/SGPT) 18 U/L (12-78) Alkaline Phosphatase 60 U/L (46-116) Lactate Dehydrogenase 154 U/L (81-234) C-Reactive Protein, Quantitative 11.9 mg/dL (0.00-0.90) H Pro-B-Type Natriuretic Peptide Pending Total Protein 6.7 G/DL (6.4-8.2) Albumin 1.2 G/DL (3.4-5.0) L Globulin 5.5 g/dL Albumin/Globulin Ratio 0.2 (1.0-2.7) L Carcinoembryonic Antigen Pending Vitamin B12 Level Pending Folate Pending Current Medications Medications (Trade) Dose Ordered Sig/Jennifer Route PRN Reason Start Time Stop Time Status Last Admin Dose Admin Acetaminophen (Tylenol) 650 mg Q4H PRN GT Temp >100.5 05/24/20 22:00 06/23/20 21:59 Albuterol/ Ipratropium (Albuterol/ Ipratropium) 3 ml EVERY 4 HOURS PRN HHN Shortness of Breath 05/24/20 21:30 05/29/20 21:29 Clopidogrel Bisulfate (Plavix) 75 mg DAILY GT 05/25/20 09:00 06/24/20 08:59 05/27/20 08:26 Dextrose (Dextrose 50%) 25 ml Q30M PRN IV Hypoglycemia 05/24/20 21:30 08/22/20 21:29 Dextrose (Dextrose 50%) 50 ml Q30M PRN IV Hypoglycemia 05/24/20 21:30 08/22/20 21:29 Heparin Sodium (Porcine) (Heparin 5000 units/ml) 5,000 units EVERY 12 HOURS SUBQ 05/25/20 09:00 07/09/20 08:59 05/27/20 08:25 Midodrine (Pro-Amatine) 5 mg TID GT 05/26/20 14:15 08/24/20 14:14 05/27/20 08:26 Ondansetron HCl (Zofran) 4 mg Q6H PRN IVP Nausea & Vomiting 05/24/20 21:30 06/23/20 21:29 Pantoprazole (Protonix) 40 mg Q12HR IV 05/26/20 21:00 06/24/20 08:59 05/27/20 08:26 Piperacillin Sod/ Tazobactam Sod 3.375 gm/Sodium Chloride 110 ml @ 27.5 mls/hr EVERY 8 HOURS IVPB 05/25/20 14:00 06/01/20 13:59 05/27/20 06:08 Polyethylene Glycol (Miralax) 17 gm DAILYPRN PRN GT Constipation 05/24/20 21:30 06/23/20 21:29 Potassium Chloride 30 meq/ Dextrose 1,015 ml @ 50 mls/hr [id number] IV 05/26/20 14:00 06/25/20 13:59 05/26/20 14:23 Quetiapine Fumarate (SEROqueL) 12.5 mg BID GT 05/25/20 09:00 07/09/20 08:59 05/27/20 08:26 Temazepam (Restoril) 15 mg HSPRN PRN GT Insomnia 05/25/20 02:30 05/31/20 21:29 Vancomycin HCl (Vanco pharmacy to dose) 1 ea DAILY PRN MISC Per rx protocol 05/25/20 02:15 06/24/20 02:14 Vancomycin HCl 1 gm/Dextrose 275 ml @ 183.708 mls/hr Q24H IVPB 05/26/20 11:00 05/31/20 10:59 05/26/20 10:42 Abi Hernandez M.D. May 27, 2020 08:45
[2020-05-27 09:01] LABS: % IRON SATURATION 38 % (15-50); IRON 35 ug/dL (50-175); TOTAL IRON BINDING CAPACITY 92 ug/dL (250-450)
--- NOTE | 2020-05-27 09:42 | CDS Physician Query ---
Clarification is required for compliance, coding accuracy, and to reflect severity of illness for this patient Dear Dr. Darrick Stout Date: 05/27/2020 CDS name: Mony Wagner Clinical Documentation states: HNP - 69-year-old male with: 1. Respiratory failure. 2. Left lower lobe pneumonia. Vitals/labs on admission: WBC 14.2, Temp 99.7, HR 119, RR 35 According to the clinical indications above, please indicate below the condition PHYSICIAN RESPONSE: [] Sepsis [X] SIRS [] SIRS with organ dysfunction [] Septic Shock [] Not applicable [] Other: Present on Admission: X Yes No Clinically Undetermined Physician signature Date Please also document in your Progress Notes and/or Discharge Summary and indicate if the condition was present on admission. MTDD
[2020-05-27] MEDS: Vancomycin 1gm in D5W 275ml IVPB SCH (10:39)
[2020-05-27 12:00] VITALS: BP 99/59
--- NOTE | 2020-05-27 13:14 | Nephrology Progress Note ---
Assessment/Plan Problem List: (1) Hypernatremia (2) Hypokalemia (3) Dehydration (4) CVA (cerebral vascular accident) (5) Feeding by G-tube (6) Alzheimer's dementia (7) PVD (peripheral vascular disease) Assessment Dehydration, hypernatremia Hypoalbuminemia Anemia UTI History of CVA Status post PEG Dementia Peripheral vascular disease Previous AKA Plan May 27: Potassium and phosphorus supplement IV. Albumin bolus. Continue p er consultants. Previously: Slow hydrate with free water Potassium supplement Antibiotics Avoid nephrotoxic's Monitor renal parameters and electrolytes Per orders Subjective ROS Limited/Unobtainable: No Constitutional: Reports: malaise Objective Objective Last 24 Hour Vital Signs Date Time Temp Pulse Resp B/P (MAP) Pulse Ox O2 Delivery O2 Flow Rate FiO2 05/27/20 09:00 Nasal Cannula 3.0 05/27/20 08:00 97.9 93 22 100/60 (73) 96 05/27/20 08:00 91 05/27/20 04:00 103 05/27/20 04:00 97.8 102 24 98/57 (71) 97 05/27/20 00:00 86 05/27/20 00:00 97.8 93 24 83/50 (61) 95 05/26/20 21:00 Nasal Cannula 3.0 05/26/20 20:00 97.9 90 24 85/54 (64) 98 05/26/20 20:00 86 05/26/20 16:00 97.9 103 24 98/57 (71) 99 05/26/20 16:00 102 Intake and Output 05/26/20 05/27/20 19:00 07:00 Intake Total 330 ml Output Total 475 ml 400 ml Balance -475 ml -70 ml Tube Feeding 330 ml Output Urine Total 475 ml 400 ml # Voids 1 # Bowel Movements 2 Current Medications Medications (Trade) Dose Ordered Sig/Jennifer Route PRN Reason Start Time Stop Time Status Last Admin Dose Admin Acetaminophen (Tylenol) 650 mg Q4H PRN GT Temp >100.5 05/24/20 22:00 06/23/20 21:59 Albuterol/ Ipratropium (Albuterol/ Ipratropium) 3 ml EVERY 4 HOURS PRN HHN Shortness of Breath 05/24/20 21:30 05/29/20 21:29 Clopidogrel Bisulfate (Plavix) 75 mg DAILY GT 05/25/20 09:00 06/24/20 08:59 05/27/20 08:26 Dextrose (Dextrose 50%) 25 ml Q30M PRN IV Hypoglycemia 05/24/20 21:30 08/22/20 21:29 Dextrose (Dextrose 50%) 50 ml Q30M PRN IV Hypoglycemia 05/24/20 21:30 08/22/20 21:29 Heparin Sodium (Porcine) (Heparin 5000 units/ml) 5,000 units EVERY 12 HOURS SUBQ 05/25/20 09:00 07/09/20 08:59 05/27/20 08:25 Midodrine (Pro-Amatine) 5 mg TID GT 05/26/20 14:15 08/24/20 14:14 05/27/20 12:26 Ondansetron HCl (Zofran) 4 mg Q6H PRN IVP Nausea & Vomiting 05/24/20 21:30 06/23/20 21:29 Pantoprazole (Protonix) 40 mg Q12HR IV 05/26/20 21:00 06/24/20 08:59 05/27/20 08:26 Piperacillin Sod/ Tazobactam Sod 3.375 gm/Sodium Chloride 110 ml @ 27.5 mls/hr EVERY 8 HOURS IVPB 05/25/20 14:00 06/01/20 13:59 05/27/20 06:08 Polyethylene Glycol (Miralax) 17 gm DAILYPRN PRN GT Constipation 05/24/20 21:30 06/23/20 21:29 Potassium Chloride 30 meq/ Dextrose 1,015 ml @ 50 mls/hr [id number] IV 05/26/20 14:00 06/25/20 13:59 05/27/20 10:39 Quetiapine Fumarate (SEROqueL) 12.5 mg BID GT 05/25/20 09:00 07/09/20 08:59 05/27/20 08:26 Temazepam (Restoril) 15 mg HSPRN PRN GT Insomnia 05/25/20 02:30 05/31/20 21:29 Vancomycin HCl (Vanco pharmacy to dose) 1 ea DAILY PRN MISC Per rx protocol 05/25/20 02:15 06/24/20 02:14 Vancomycin HCl 1 gm/Dextrose 275 ml @ 183.708 mls/hr Q24H IVPB 05/26/20 11:00 05/31/20 10:59 05/27/20 10:39 Laboratory Tests 05/27/20 06:00: Troponin I 0.043 05/27/20 06:35: White Blood Count 8.4, Red Blood Count 3.44L, Hemoglobin 9.8L, Hematocrit 33.7L, Mean Corpuscular Volume 98#, Mean Corpuscular Hemoglobin 28.6, Mean Corpuscular Hemoglobin Concent 29.2L, Red Cell Distribution Width 17.3H, Platelet Count 245, Mean Platelet Volume 7.8, Neutrophils (%) (Auto) , Lymphocytes (%) (Auto) , Monocytes (%) (Auto) , Eosinophils (%) (Auto) , Basophils (%) (Auto) , Neutrophils % (Manual) [Pending], Lymphocytes % (Manual) [Pending], Platelet Estimate [Pending], Platelet Morphology [Pending], Erythrocyte Sedimentation Rate 105H, Reticulocyte Count [Pending], Prothrombin Time 11.6H, Prothromb Time International Ratio 1.1, Activated Partial Thromboplast Time 33, Sodium Level 147H, Potassium Level 3.4L, Chloride Level 117H, Carbon Dioxide Level 21, Anion Gap 9, Blood Urea Nitrogen 22H, Creatinine 0.8, Estimat Glomerular Filtration Rate > 60, Glucose Level 106, Hemoglobin A1c 5.1, Uric Acid 2.9, Calcium Level 7.5L, Phosphorus Level 2.3L, Magnesium Level 2.0, Iron Level 35L, Total Iron Binding Capacity 92L, Percent Iron Saturation 38, Unsaturated Iron Binding 57L, Total Bilirubin 0.5, Aspartate Amino Transf (AST/SGOT) 31, Alanine Aminotransferase (ALT/SGPT) 18, Alkaline Phosphatase 60, Lactate Dehydrogenase 154, C-Reactive Protein, Quantitative 11.9H, Pro-B-Type Natriuretic Peptide 2225H, Total Protein 6.7, Albumin 1.2L, Globulin 5.5, Albumin/Globulin Ratio 0.2L, Carcinoembryonic Antigen [Pending], Vitamin B12 Level 418, Folate 18.6 Height (Feet): 4 Height (Inches): 0.00 Weight (Pounds): 100 General Appearance: no apparent distress Cardiovascular: tachycardia Respiratory/Chest: decreased breath sounds Abdomen: distended Fouladian,Gennaro MD May 27, 2020 13:13
--- NOTE | 2020-05-27 13:59 | Consultation ---
History of Present Illness General Date patient seen: May 27, 2020 Reason for Hospitalization: Upper Respiratory Illness Present Illness HPI this is a pleasant 69-year-old male well known to me with history of CVA, nonverbal but can make needs known, G-tube dependent feeding, hypertension, hyperlipidemia, CHF, oxygen dependent on 3 L baseline presents for evaluation of cough and congestion. Symptoms began this morning. Denies chest pain or pressure. Denies pain of any kind. No fevers reported. Tested negative by rapid testing for COVID-19 earlier today. Patient was saturating 90% on his baseline 3 L and improved to 98% on 4 L nasal cannula. Patient is DNR/DNI and comfort measures only. Sent over for evaluation of cough. has chronic wounds, abnormal labs, and tube concerns. surgery called to evaluate and assist with care. Allergies: Coded Allergies: No Known Allergies (Unverified , 03/07/19) COVID-19 Screening Contact w/high risk pt: No Experienced COVID-19 symptoms?: No Coronavirus symptoms experienc: Cough Medication History Scheduled Allopurinol* (Allopurinol*), 100 MG GT DAILY Amino Acids/Protein Hydrolys (Pro-Stat Liquid), 30 ML GT TWICE A DAY, (Reported) Clopidogrel Bisulfate* (Plavix*), 75 MG ORAL DAILY, (Reported) Meropenem (Merrem), 1 GM IV EVERY 12 HOURS Quetiapine Fumarate* (Seroquel*), 12.5 MG ORAL BID Vancomycin/Water For Inj (Peg) (Vancomycin 1 Gram/200 ml Bag), 1 GM IV DAILY Zinc Sulfate (Zinc Sulfate*), 220 MG GT DAILY, (Reported) Scheduled PRN Acetaminophen* (Acetaminophen 325MG Tablet*), 500 MG GT Q4H PRN for Moderate Pain (Pain Scale 4-6), (Reported) Miscellaneous Medications Vit C/Ascorb Sod/Multivit-Min (Emergen-C 500 mg Chewable Tab), 500 MG GT, (Reported) Patient History Limited by: medical condition History Provided By: Medical Record, PMD Healthcare decision maker Resuscitation status Advanced Directive on File Past Medical/Surgical History Past Medical/Surgical History: (1) CVA (cerebral vascular accident) (2) Feeding by G-tube (3) Alzheimer's dementia (4) Hypernatremia (5) ATN (acute tubular necrosis) (6) PVD (peripheral vascular disease) (7) Dehydration (8) Hypernatremia (9) Iron deficiency anemia (10) Decubitus skin ulcer (11) Renal failure (ARF), acute on chronic (12) Sepsis (13) UTI (urinary tract infection) (14) Severe sepsis (15) Hypokalemia (16) Nosocomial pneumonia (17) Pleural effusion on left (18) Acute encephalopathy (19) SVT (supraventricular tachycardia) Review of Systems Review of Symptoms General ROS: no weight loss or fever Psychological ROS: no depression or mood changes, no memory loss Ophthalmic ROS: no visual changes or eye irritation ENT ROS: no nasal congestion, hearing loss, dizziness Allergy and Immunology ROS: no allergic symptoms or urticaria Hematological and Lymphatic ROS: no swollen glands, unusual bleeding or bruising Endocrine ROS: no polyuria, polydipsia, weight changes, temperature intolerance Respiratory ROS: no cough, shortness of breath, or wheezing Cardiovascular ROS: no chest pain or dyspnea on exertion Gastrointestinal ROS: denies abdominal pain, bright red blood in stool. Musculoskeletal ROS: no myalgias or arthralgias Neurological ROS: no TIA or stroke symptoms Dermatological ROS: no new or changing skin lesions, rashes or pruritis limited Physical Exam Physical Exam General appearance: alert, no distress, appears stated age Head: Normocephalic, without obvious abnormality, atraumatic Eyes: conjunctivae/corneas clear. PERRL, EOM's intact. Fundi benign Throat: Lips, mucosa, and tongue normal. Teeth and gums normal Neck: supple, symmetrical, trachea midline, no adenopathy, thyroid: not enlarged, symmetric, no tenderness/mass/nodules, no carotid bruit and no JVD Lungs: clear to auscultation bilaterally Heart: regular rate and rhythm, S1, S2 normal, no murmur, click, rub or gallop Abdomen: soft, non-tender. Bowel sounds normal. No masses, no organomegaly tf tube oozing Extremities: extremities normal, atraumatic, no cyanosis or edema Pulses: 2+ and symmetric Skin: Skin see below Neurologic: Grossly normal Last 24 Hour Vital Signs Date Time Temp Pulse Resp B/P (MAP) Pulse Ox O2 Delivery O2 Flow Rate FiO2 05/27/20 09:00 Nasal Cannula 3.0 05/27/20 08:00 97.9 93 22 100/60 (73) 96 05/27/20 08:00 91 05/27/20 04:00 103 05/27/20 04:00 97.8 102 24 98/57 (71) 97 05/27/20 00:00 86 05/27/20 00:00 97.8 93 24 83/50 (61) 95 05/26/20 21:00 Nasal Cannula 3.0 05/26/20 20:00 97.9 90 24 85/54 (64) 98 05/26/20 20:00 86 05/26/20 16:00 97.9 103 24 98/57 (71) 99 05/26/20 16:00 102 Intake and Output 05/26/20 05/27/20 19:00 07:00 Intake Total 330 ml Output Total 475 ml 400 ml Balance -475 ml -70 ml Tube Feeding 330 ml Output Urine Total 475 ml 400 ml # Voids 1 # Bowel Movements 2 Laboratory Tests Test 05/27/20 06:00 05/27/20 06:35 Troponin I 0.043 ng/mL (0.000-0.056) White Blood Count 8.4 K/UL (4.8-10.8) Red Blood Count 3.44 M/UL (4.70-6.10) L Hemoglobin 9.8 G/DL (14.2-18.0) L Hematocrit 33.7 % (42.0-52.0) L Mean Corpuscular Volume 98 FL (80-99) # Mean Corpuscular Hemoglobin 28.6 PG (27.0-31.0) Mean Corpuscular Hemoglobin Concent 29.2 G/DL (32.0-36.0) L Red Cell Distribution Width 17.3 % (11.6-14.8) H Platelet Count 245 K/UL (150-450) Mean Platelet Volume 7.8 FL (6.5-10.1) Neutrophils (%) (Auto) % (45.0-75.0) Lymphocytes (%) (Auto) % (20.0-45.0) Monocytes (%) (Auto) % (1.0-10.0) Eosinophils (%) (Auto) % (0.0-3.0) Basophils (%) (Auto) % (0.0-2.0) Differential Total Cells Counted 100 Neutrophils % (Manual) 81 % (45-75) H Lymphocytes % (Manual) 13 % (20-45) L Monocytes % (Manual) 5 % (1-10) Eosinophils % (Manual) 1 % (0-3) Basophils % (Manual) 0 % (0-2) Band Neutrophils 0 % (0-8) Platelet Estimate Adequate Platelet Morphology Normal Polychromasia 1+ Hypochromasia 1+ Anisocytosis 1+ Erythrocyte Sedimentation Rate 105 MM/HR (0-20) H Reticulocyte Count Pending Prothrombin Time 11.6 SEC (9.30-11.50) H Prothromb Time International Ratio 1.1 (0.9-1.1) Activated Partial Thromboplast Time 33 SEC (23-33) Sodium Level 147 MMOL/L (136-145) H Potassium Level 3.4 MMOL/L (3.5-5.1) L Chloride Level 117 MMOL/L (98-107) H Carbon Dioxide Level 21 MMOL/L (21-32) Anion Gap 9 mmol/L (5-15) Blood Urea Nitrogen 22 mg/dL (7-18) H Creatinine 0.8 MG/DL (0.55-1.30) Estimat Glomerular Filtration Rate > 60 mL/min (>60) Glucose Level 106 MG/DL (74-106) Hemoglobin A1c 5.1 % (4.3-6.0) Uric Acid 2.9 MG/DL (2.6-7.2) Calcium Level 7.5 MG/DL (8.5-10.1) L Phosphorus Level 2.3 MG/DL (2.5-4.9) L Magnesium Level 2.0 MG/DL (1.8-2.4) Iron Level 35 ug/dL (50-175) L Total Iron Binding Capacity 92 ug/dL (250-450) L Percent Iron Saturation 38 % (15-50) Unsaturated Iron Binding 57 ug/dL (112-346) L Total Bilirubin 0.5 MG/DL (0.2-1.0) Aspartate Amino Transf (AST/SGOT) 31 U/L (15-37) Alanine Aminotransferase (ALT/SGPT) 18 U/L (12-78) Alkaline Phosphatase 60 U/L (46-116) Lactate Dehydrogenase 154 U/L (81-234) C-Reactive Protein, Quantitative 11.9 mg/dL (0.00-0.90) H Pro-B-Type Natriuretic Peptide 2225 pg/mL (0-125) H Total Protein 6.7 G/DL (6.4-8.2) Albumin 1.2 G/DL (3.4-5.0) L Globulin 5.5 g/dL Albumin/Globulin Ratio 0.2 (1.0-2.7) L Carcinoembryonic Antigen Pending Vitamin B12 Level 418 PG/ML (193-986) Folate 18.6 NG/ML (8.6-58.9) Microbiology Date/Time Source Procedure Growth Status 05/26/20 14:43 Rectum Received 05/26/20 14:30 Nasopharynx SARS-CoV-2 RdRp Gene Assay - Final Complete Height (Feet): 4 Height (Inches): 0.00 Weight (Pounds): 100 Medications Current Medications Medications (Trade) Dose Ordered Sig/Jennifer Route PRN Reason Start Time Stop Time Status Last Admin Dose Admin Acetaminophen (Tylenol) 650 mg Q4H PRN GT Temp >100.5 05/24/20 22:00 06/23/20 21:59 Albumin Human 50 ml @ 100 mls/hr ONCE ONCE IV 05/27/20 13:30 05/27/20 13:59 Albuterol/ Ipratropium (Albuterol/ Ipratropium) 3 ml EVERY 4 HOURS PRN HHN Shortness of Breath 05/24/20 21:30 05/29/20 21:29 Clopidogrel Bisulfate (Plavix) 75 mg DAILY GT 05/25/20 09:00 06/24/20 08:59 05/27/20 08:26 Dextrose (Dextrose 50%) 25 ml Q30M PRN IV Hypoglycemia 05/24/20 21:30 08/22/20 21:29 Dextrose (Dextrose 50%) 50 ml Q30M PRN IV Hypoglycemia 05/24/20 21:30 08/22/20 21:29 Heparin Sodium (Porcine) (Heparin 5000 units/ml) 5,000 units EVERY 12 HOURS SUBQ 05/25/20 09:00 07/09/20 08:59 05/27/20 08:25 Midodrine (Pro-Amatine) 5 mg TID GT 05/26/20 14:15 08/24/20 14:14 05/27/20 12:26 Ondansetron HCl (Zofran) 4 mg Q6H PRN IVP Nausea & Vomiting 05/24/20 21:30 06/23/20 21:29 Pantoprazole (Protonix) 40 mg Q12HR IV 05/26/20 21:00 06/24/20 08:59 05/27/20 08:26 Piperacillin Sod/ Tazobactam Sod 3.375 gm/Sodium Chloride 110 ml @ 27.5 mls/hr EVERY 8 HOURS IVPB 05/25/20 14:00 06/01/20 13:59 05/27/20 06:08 Polyethylene Glycol (Miralax) 17 gm DAILYPRN PRN GT Constipation 05/24/20 21:30 06/23/20 21:29 Potassium Chloride 30 meq/ Dextrose 1,015 ml @ 50 mls/hr [id number] IV 05/26/20 14:00 06/25/20 13:59 05/27/20 10:39 Potassium Phosphate 20 mm/ Sodium Chloride 281.6667 ml @ 46.944 m... ONCE ONCE IV 05/27/20 15:00 05/27/20 20:59 Quetiapine Fumarate (SEROqueL) 12.5 mg BID GT 05/25/20 09:00 07/09/20 08:59 05/27/20 08:26 Temazepam (Restoril) 15 mg HSPRN PRN GT Insomnia 05/25/20 02:30 05/31/20 21:29 Vancomycin HCl (Vanco pharmacy to dose) 1 ea DAILY PRN MISC Per rx protocol 05/25/20 02:15 06/24/20 02:14 Vancomycin HCl 1 gm/Dextrose 275 ml @ 183.708 mls/hr Q24H IVPB 05/26/20 11:00 05/31/20 10:59 05/27/20 10:39 Assessment/Plan Problem List: (1) CVA (cerebral vascular accident) ICD Codes: I63.9 - Cerebral infarction, unspecified SNOMED: 063718848 (2) Feeding by G-tube Assessment & Plan: DAILY ESTIMATED NEEDS: Needs based on Wasting, wt loss, wound/ 45.4kg 35-40 kcals/kg 0946-3991 total kcals 1.25-2 g protein/kg 57-91 g total protein 25-30 mL/kg 8426-9959 total fluid mLs NUTRITION DIAGNOSIS: * Increased kcal and pro needs r/t wound healing, suspected wt loss as evidenced by full thickness wound @ head of LT AKA, suspected wt loss of 13lbs/11.5% in ~14 months, noted w/ severe wasting around clavicle area * Swallowing difficulty R/T dysphagia as evidenced by pt is PEG dep. CURRENT TF:Jevity 1.2 @ 30ml/hr x 24 hrs ENTERAL NUTRITION RECOMMENDATIONS: Glucerna 1.2 @ 60ml/hr x 24 hrs to provide 1440ml, 1728kcal, 86g prot, 1159ml free water * Rec carb controlled TF: h/o DM, on carb controlled TF [employer]PER[employer]OR * Rec Glucerna 1.2 @ goal rate of 60ml/hr x 24 hrs to meet 100% est kcal/prot needs * HOB over 30 degrees/ water flush 100ml q 6hrs without IVF ADDITIONAL RECOMMENDATIONS: 1) Daily calibrated bedscale wt, monitor trend (h/o Wt loss) 2) WOUND CARE: Vit C 500mg QD, ZNSO4 220mg QD x 10 days TF rec @ goal provide 100% RDI Add Wally BID via GT 3) Monitor BGs, need for NISS- h/o DM 4) Monitor lytes, replete as needed (low K) ICD Codes: Z93.1 - Gastrostomy status SNOMED: 415931891, 932267505, 220647043 (3) Alzheimer's dementia ICD Codes: G30.9 - Alzheimer's disease, unspecified; F02.80 - Dementia in other diseases classified elsewhere without behavioral disturbance SNOMED: 77559298 (4) Hypernatremia ICD Codes: E87.0 - Hyperosmolality and hypernatremia (5) ATN (acute tubular necrosis) ICD Codes: N17.0 - Acute kidney failure with tubular necrosis SNOMED: 26008222 (6) PVD (peripheral vascular disease) ICD Codes: I73.9 - Peripheral vascular disease, unspecified SNOMED: 740074703 (7) Dehydration ICD Codes: E86.0 - Dehydration SNOMED: 68061174 (8) Hypernatremia ICD Codes: E87.0 - Hyperosmolality and hypernatremia (9) Iron deficiency anemia ICD Codes: D50.9 - Iron deficiency anemia, unspecified SNOMED: 48537817 (10) Decubitus skin ulcer Assessment & Plan: Pt is emaciated. Hyperpigmented Sacral scar noted. Surrounding maroon discoloration. Bony protrusion of Sacrococcygeal prominence. 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 Thick callused skin with with surrounding moist leonila borders that are hypergranular. No erythema or elevation in skin temp periwound. No exudate noted. Tx. Plan: Cover Sacrum , Bilat Hips with Optifoam drsgs. Change every 3 days and prn. Cover L AKA with Optifoam drsg. Change every 3 days and prn. Reposition at least every 2hours or as tolerated. nutritional optimization monitor tube ICD Codes: L89.90 - Pressure ulcer of unspecified site, unspecified stage SNOMED: 202578227 (11) Renal failure (ARF), acute on chronic ICD Codes: N17.9 - Acute kidney failure, unspecified; N18.9 - Chronic kidney disease, unspecified SNOMED: 267930804 (12) Sepsis ICD Codes: A41.9 - Sepsis, unspecified organism SNOMED: 01159075 (13) UTI (urinary tract infection) ICD Codes: N39.0 - Urinary tract infection, site not specified SNOMED: 62733586 (14) Severe sepsis ICD Codes: A41.9 - Sepsis, unspecified organism; R65.20 - Severe sepsis without septic shock SNOMED: 73407956 (15) Hypokalemia ICD Codes: E87.6 - Hypokalemia SNOMED: 28094105 (16) Nosocomial pneumonia ICD Codes: J18.9 - Pneumonia, unspecified organism; Y95 - Nosocomial condition SNOMED: 588653570 (17) Pleural effusion on left ICD Codes: J90 - Pleural effusion, not elsewhere classified SNOMED: 35225846 (18) Acute encephalopathy ICD Codes: G93.40 - Encephalopathy, unspecified SNOMED: 54128603, 805866462 (19) SVT (supraventricular tachycardia) ICD Codes: I47.1 - Supraventricular tachycardia SNOMED: 8023272 Emiliano Martinez May 27, 2020 13:59
[2020-05-27] MEDS ORDERED: Potassium Phosphate 20 MM in NS 275 ML IV ONE (15:00)
[2020-05-27 16:00] VITALS: BP 108/60
--- NOTE | 2020-05-27 19:30 | Internal Med Progress Note ---
Subjective Date of Service: May 27, 2020 Physician Name Darrick Stout Attending Physician Yannick Marshall MD Current Medications Medications (Trade) Dose Ordered Sig/Jennifer Route PRN Reason Start Time Stop Time Status Last Admin Dose Admin Acetaminophen (Tylenol) 650 mg Q4H PRN GT Temp >100.5 05/24/20 22:00 06/23/20 21:59 Albuterol/ Ipratropium (Albuterol/ Ipratropium) 3 ml EVERY 4 HOURS PRN HHN Shortness of Breath 05/24/20 21:30 05/29/20 21:29 Clopidogrel Bisulfate (Plavix) 75 mg DAILY GT 05/25/20 09:00 06/24/20 08:59 05/27/20 08:26 Dextrose (Dextrose 50%) 25 ml Q30M PRN IV Hypoglycemia 05/24/20 21:30 08/22/20 21:29 Dextrose (Dextrose 50%) 50 ml Q30M PRN IV Hypoglycemia 05/24/20 21:30 08/22/20 21:29 Heparin Sodium (Porcine) (Heparin 5000 units/ml) 5,000 units EVERY 12 HOURS SUBQ 05/25/20 09:00 07/09/20 08:59 05/27/20 08:25 Midodrine (Pro-Amatine) 5 mg TID GT 05/26/20 14:15 08/24/20 14:14 05/27/20 18:11 Ondansetron HCl (Zofran) 4 mg Q6H PRN IVP Nausea & Vomiting 05/24/20 21:30 06/23/20 21:29 Pantoprazole (Protonix) 40 mg Q12HR IV 05/26/20 21:00 06/24/20 08:59 05/27/20 08:26 Piperacillin Sod/ Tazobactam Sod 3.375 gm/Sodium Chloride 110 ml @ 27.5 mls/hr EVERY 8 HOURS IVPB 05/25/20 14:00 06/01/20 13:59 05/27/20 14:02 Polyethylene Glycol (Miralax) 17 gm DAILYPRN PRN GT Constipation 05/24/20 21:30 06/23/20 21:29 Potassium Chloride 30 meq/ Dextrose 1,015 ml @ 50 mls/hr [id number] IV 05/26/20 14:00 06/25/20 13:59 05/27/20 10:39 Potassium Phosphate 20 mm/ Sodium Chloride 281.6667 ml @ 46.944 m... ONCE ONCE IV 05/27/20 15:00 05/27/20 20:59 05/27/20 15:19 Quetiapine Fumarate (SEROqueL) 12.5 mg BID GT 05/25/20 09:00 07/09/20 08:59 05/27/20 18:11 Temazepam (Restoril) 15 mg HSPRN PRN GT Insomnia 05/25/20 02:30 05/31/20 21:29 Vancomycin HCl (Vanco pharmacy to dose) 1 ea DAILY PRN MISC Per rx protocol 05/25/20 02:15 06/24/20 02:14 Vancomycin HCl 1 gm/Dextrose 275 ml @ 183.708 mls/hr Q24H IVPB 05/26/20 11:00 05/31/20 10:59 05/27/20 10:39 Allergies: Coded Allergies: No Known Allergies (Unverified , 03/07/19) ROS Limited/Unobtainable: Yes Subjective 69 YO M admitted with dyspnea. Now LLL pneumonia. Cover for Int med-DR Marshall Objective Last Vital Signs Date Time Temp Pulse Resp B/P (MAP) Pulse Ox O2 Delivery O2 Flow Rate FiO2 05/27/20 16:00 83 05/27/20 16:00 97.9 22 108/60 (76) 96 05/27/20 09:00 Nasal Cannula 3.0 Laboratory Tests Test 05/27/20 06:00 05/27/20 06:35 Troponin I 0.043 ng/mL (0.000-0.056) White Blood Count 8.4 K/UL (4.8-10.8) Red Blood Count 3.44 M/UL (4.70-6.10) L Hemoglobin 9.8 G/DL (14.2-18.0) L Hematocrit 33.7 % (42.0-52.0) L Mean Corpuscular Volume 98 FL (80-99) # Mean Corpuscular Hemoglobin 28.6 PG (27.0-31.0) Mean Corpuscular Hemoglobin Concent 29.2 G/DL (32.0-36.0) L Red Cell Distribution Width 17.3 % (11.6-14.8) H Platelet Count 245 K/UL (150-450) Mean Platelet Volume 7.8 FL (6.5-10.1) Neutrophils (%) (Auto) % (45.0-75.0) Lymphocytes (%) (Auto) % (20.0-45.0) Monocytes (%) (Auto) % (1.0-10.0) Eosinophils (%) (Auto) % (0.0-3.0) Basophils (%) (Auto) % (0.0-2.0) Differential Total Cells Counted 100 Neutrophils % (Manual) 81 % (45-75) H Lymphocytes % (Manual) 13 % (20-45) L Monocytes % (Manual) 5 % (1-10) Eosinophils % (Manual) 1 % (0-3) Basophils % (Manual) 0 % (0-2) Band Neutrophils 0 % (0-8) Platelet Estimate Adequate Platelet Morphology Normal Polychromasia Hypochromasia 1+ Anisocytosis 1+ Erythrocyte Sedimentation Rate 105 MM/HR (0-20) H Reticulocyte Count 0.4 % (0.5-2.0) L Prothrombin Time 11.6 SEC (9.30-11.50) H Prothromb Time International Ratio 1.1 (0.9-1.1) Activated Partial Thromboplast Time 33 SEC (23-33) Sodium Level 147 MMOL/L (136-145) H Potassium Level 3.4 MMOL/L (3.5-5.1) L Chloride Level 117 MMOL/L (98-107) H Carbon Dioxide Level 21 MMOL/L (21-32) Anion Gap 9 mmol/L (5-15) Blood Urea Nitrogen 22 mg/dL (7-18) H Creatinine 0.8 MG/DL (0.55-1.30) Estimat Glomerular Filtration Rate > 60 mL/min (>60) Glucose Level 106 MG/DL (74-106) Hemoglobin A1c 5.1 % (4.3-6.0) Uric Acid 2.9 MG/DL (2.6-7.2) Calcium Level 7.5 MG/DL (8.5-10.1) L Phosphorus Level 2.3 MG/DL (2.5-4.9) L Magnesium Level 2.0 MG/DL (1.8-2.4) Iron Level 35 ug/dL (50-175) L Total Iron Binding Capacity 92 ug/dL (250-450) L Percent Iron Saturation 38 % (15-50) Unsaturated Iron Binding 57 ug/dL (112-346) L Total Bilirubin 0.5 MG/DL (0.2-1.0) Aspartate Amino Transf (AST/SGOT) 31 U/L (15-37) Alanine Aminotransferase (ALT/SGPT) 18 U/L (12-78) Alkaline Phosphatase 60 U/L (46-116) Lactate Dehydrogenase 154 U/L (81-234) C-Reactive Protein, Quantitative 11.9 mg/dL (0.00-0.90) H Pro-B-Type Natriuretic Peptide 2225 pg/mL (0-125) H Total Protein 6.7 G/DL (6.4-8.2) Albumin 1.2 G/DL (3.4-5.0) L Globulin 5.5 g/dL Albumin/Globulin Ratio 0.2 (1.0-2.7) L Carcinoembryonic Antigen Pending Vitamin B12 Level 418 PG/ML (193-986) Folate 18.6 NG/ML (8.6-58.9) Microbiology Date/Time Source Procedure Growth Status 05/26/20 14:43 Rectum Received 05/26/20 14:30 Nasopharynx SARS-CoV-2 RdRp Gene Assay - Final Complete 05/26/20 10:40 Urine,Clean Catch Urine Culture - Preliminary NO GROWTH Resulted Intake and Output 05/26/20 05/27/20 19:00 07:00 Intake Total 330 ml Output Total 475 ml 400 ml Balance -475 ml -70 ml Tube Feeding 330 ml Output Urine Total 475 ml 400 ml # Voids 1 # Bowel Movements 2 Objective PHYSICAL EXAMINATION: GENERAL: The patient is a well-developed and well-nourished male, in no apparent distress. HEENT: Eyes, pupils are equal responsive to light and accommodation. Extraocular movements are intact. NECK: Supple without lymphadenopathy. CHEST: Lungs are clear to auscultation bilaterally without wheezes or rales. CARDIOVASCULAR: Regular rhythm and rate. S1, S2 normal without murmurs, rubs, or gallops. ABDOMEN: Soft, nontender, and nondistended. Positive bowel sounds. No evidence of hepatosplenomegaly. Currently, no rebound or guarding noted. EXTREMITIES: Negative for clubbing, cyanosis, or edema. RECTAL/GENITAL: Not performed. NEUROLOGIC: Cranial nerves II through XII are grossly intact without focal deficits. Assessment/Plan Assessment/Plan ASSESSMENT: This is a 69-year-old male with: 1. Respiratory failure. 2. Left lower lobe pneumonia. 3. Cerebrovascular disease, status post cerebrovascular accident. 4. Hypertension. 5. Hypercholesterolemia. 6. Congestive heart failure. 7. Dysphagia. 8. [id number] amputation. TREATMENT: 1. Respiratory failure/left lower lobe pneumonia. Pulmonary consultation has been obtained with Dr. Jaylin Dickson. The patient has been placed empirically on intravenous Zosyn and vancomycin. The patient is currently tolerating nasal cannula at 4 to 5 liters of oxygen. We will follow recommendations of Pulmonary. 2. Cerebrovascular disease, status post cerebrovascular accident. 3. Right-sided hemiparesis. 4. History of peripheral vascular disease, status post [id number] amputation. 5. Hypertension. 6. Diabetes type 2. 7. Alzheimer's dementia. 8. Dysphagia, status post PEG placement. 9. Congestive heart failure. Darrick Stout MD May 27, 2020 19:30
--- NOTE | 2020-05-27 19:55 | Cardiac Electrophysiology PN ---
Assessment/Plan Assessment/Plan 1. Hypotension. Blood pressure improved with IV fluids. Sodium was high, likely dehydrated. Start the patient also on midodrine 5 mg 3 times daily. EKG showed lateral ischemia. 2. Dysphagia, status post PEG placement. 3. Respiratory failure, on 3 liters nasal cannula. 4. CVA. 5. Nonverbal status. 6. DNR/DNI. 7. Hypokalemia. Potassium was replaced. Subjective Subjective DC to [facility] pending today Objective Last 24 Hour Vital Signs Date Time Temp Pulse Resp B/P (MAP) Pulse Ox O2 Delivery O2 Flow Rate FiO2 05/27/20 16:00 83 05/27/20 16:00 97.9 85 22 108/60 (76) 96 05/27/20 12:00 93 05/27/20 12:00 97.7 93 20 99/59 (72) 97 05/27/20 09:00 Nasal Cannula 3.0 05/27/20 08:00 97.9 93 22 100/60 (73) 96 05/27/20 08:00 91 05/27/20 04:00 103 05/27/20 04:00 97.8 102 24 98/57 (71) 97 05/27/20 00:00 86 05/27/20 00:00 97.8 93 24 83/50 (61) 95 05/26/20 21:00 Nasal Cannula 3.0 05/26/20 20:00 97.9 90 24 85/54 (64) 98 05/26/20 20:00 86 Intake and Output 05/26/20 05/27/20 19:00 07:00 Intake Total 330 ml Output Total 475 ml 400 ml Balance -475 ml -70 ml Tube Feeding 330 ml Output Urine Total 475 ml 400 ml # Voids 1 # Bowel Movements 2 Laboratory Tests Test 05/27/20 06:00 05/27/20 06:35 Troponin I 0.043 ng/mL (0.000-0.056) White Blood Count 8.4 K/UL (4.8-10.8) Red Blood Count 3.44 M/UL (4.70-6.10) L Hemoglobin 9.8 G/DL (14.2-18.0) L Hematocrit 33.7 % (42.0-52.0) L Mean Corpuscular Volume 98 FL (80-99) # Mean Corpuscular Hemoglobin 28.6 PG (27.0-31.0) Mean Corpuscular Hemoglobin Concent 29.2 G/DL (32.0-36.0) L Red Cell Distribution Width 17.3 % (11.6-14.8) H Platelet Count 245 K/UL (150-450) Mean Platelet Volume 7.8 FL (6.5-10.1) Neutrophils (%) (Auto) % (45.0-75.0) Lymphocytes (%) (Auto) % (20.0-45.0) Monocytes (%) (Auto) % (1.0-10.0) Eosinophils (%) (Auto) % (0.0-3.0) Basophils (%) (Auto) % (0.0-2.0) Differential Total Cells Counted 100 Neutrophils % (Manual) 81 % (45-75) H Lymphocytes % (Manual) 13 % (20-45) L Monocytes % (Manual) 5 % (1-10) Eosinophils % (Manual) 1 % (0-3) Basophils % (Manual) 0 % (0-2) Band Neutrophils 0 % (0-8) Platelet Estimate Adequate Platelet Morphology Normal Polychromasia Hypochromasia 1+ Anisocytosis 1+ Erythrocyte Sedimentation Rate 105 MM/HR (0-20) H Reticulocyte Count 0.4 % (0.5-2.0) L Prothrombin Time 11.6 SEC (9.30-11.50) H Prothromb Time International Ratio 1.1 (0.9-1.1) Activated Partial Thromboplast Time 33 SEC (23-33) Sodium Level 147 MMOL/L (136-145) H Potassium Level 3.4 MMOL/L (3.5-5.1) L Chloride Level 117 MMOL/L (98-107) H Carbon Dioxide Level 21 MMOL/L (21-32) Anion Gap 9 mmol/L (5-15) Blood Urea Nitrogen 22 mg/dL (7-18) H Creatinine 0.8 MG/DL (0.55-1.30) Estimat Glomerular Filtration Rate > 60 mL/min (>60) Glucose Level 106 MG/DL (74-106) Hemoglobin A1c 5.1 % (4.3-6.0) Uric Acid 2.9 MG/DL (2.6-7.2) Calcium Level 7.5 MG/DL (8.5-10.1) L Phosphorus Level 2.3 MG/DL (2.5-4.9) L Magnesium Level 2.0 MG/DL (1.8-2.4) Iron Level 35 ug/dL (50-175) L Total Iron Binding Capacity 92 ug/dL (250-450) L Percent Iron Saturation 38 % (15-50) Unsaturated Iron Binding 57 ug/dL (112-346) L Total Bilirubin 0.5 MG/DL (0.2-1.0) Aspartate Amino Transf (AST/SGOT) 31 U/L (15-37) Alanine Aminotransferase (ALT/SGPT) 18 U/L (12-78) Alkaline Phosphatase 60 U/L (46-116) Lactate Dehydrogenase 154 U/L (81-234) C-Reactive Protein, Quantitative 11.9 mg/dL (0.00-0.90) H Pro-B-Type Natriuretic Peptide 2225 pg/mL (0-125) H Total Protein 6.7 G/DL (6.4-8.2) Albumin 1.2 G/DL (3.4-5.0) L Globulin 5.5 g/dL Albumin/Globulin Ratio 0.2 (1.0-2.7) L Carcinoembryonic Antigen Pending Vitamin B12 Level 418 PG/ML (193-986) Folate 18.6 NG/ML (8.6-58.9) Microbiology Date/Time Source Procedure Growth Status 05/26/20 14:43 Rectum Received 05/26/20 14:30 Nasopharynx SARS-CoV-2 RdRp Gene Assay - Final Complete 05/26/20 10:40 Urine,Clean Catch Urine Culture - Preliminary NO GROWTH Resulted Objective HEAD AND NECK: Showed no JVD. LUNGS: Coarse rhonchi. CARDIOVASCULAR: Shows regular S1 and S2 with no gallop or murmur. ABDOMEN: Soft. EXTREMITIES: Status post bilateral above-knee amputation. Duong Chavez MD May 27, 2020 19:55
[2020-05-27] MEDS ORDERED: Tubing IV Secondary IV ONE (20:44)
--- NOTE | 2020-05-30 08:30 | Discharge Summary ---
Discharge Summary Discharge Summary _ Discharge summary DATE OF ADMISSION: 05/24/2020 DATE OF DISCHARGE: [] 10/26/2019 Dr. Sanders DISCHARGED BY: REASON FOR ADMISSION: [] 69 years old male, resident of [facility] facility, with past medical history of CVA, dysphagia, G-tube feeding, hypertension, hyperlipidemia, CHF, chronic oxygen dependence at baseline of 3 L, presented for evaluation of cough and congestion. Patient is a DNR/DNI status. Symptoms started that morning prior to presentation to ED. He denied chest pain or chest pressure he tested negative by rapid COVID-19 earlier the same day. Patient was saturated to 90% on 3 L of oxygen via nasal cannula and improved to 98% on 4 L. Patient had low- grade fever 99.7 and low blood pressure 90/58. Laboratory work-up revealed leukocytosis WBC 14.2, globin 10.9 hematocrit 32.6 platelet count 183. Sodium 153 potassium 3.2. BUN 44, creatinine 0.9. Stable LFT troponin 0 0.026 proBNP 07/03/2001 albumin 1.4 EKG revealed sinus tachycardia with PAC. Chest x-ray revealed no definite acute process. Elevated left left hemidiaphragm with considerable left basilar atelectasis. Urinalysis revealed pyuria in emergency department patient received IV fluids admitted for further management. CONSULTANTS: teacher vocational training Dr. Juarez neurologist pulmonary Is on IV ID specialist Dr. Kidd GI specialist soldering machine operator Dr. Cagle oil lease buyer/oncologist surgery psychiatrist HOSPITAL COURSE: [] Patient admitted and started on IV hydration renal parameters electrolytes were closely monitored electrolytes corrected as needed nephrotoxic's were avoided renal work-up initiated. Albumin boluses provided. Patient resume G- tube feeding strict aspiration precaution maintain Repeated rapid COVID-19 and Covid by PCR were both negative. Urine culture revealed gram-negative rods. Patient had leukocytosis no leukocytosis resolved along with fevers. Patient provided with empiric antibiotics while in the hospital. Supplemental oxygen provided and titrated to keep pulse oximetry above 92% prior to discharge pulse oximetry stable on 3 L of oxygen via nasal cannula. Hemoglobin hematocrit were closely monitored with goal to keep hemoglobin above 7 hemoglobin hematocrit remained at baseline prior to discharge hemoglobin 9.8 hematocrit 33.7. DVT and GI prophylaxis provided. SNF medication continued. Initial hypotension improved with IV hydration. Patient was dehydrated. Patient also started on midodrine .EKG showed lateral lateral ischemia. Echocardiogram demonstrated normal left ventricular chamber size, systolic function and wall motion. Ejection fraction estimated to be 50 to 55%. Volumes were closely monitored. Blood pressure improved with IV hydration and midodrine , prior to discharge blood pressure 108/60 supportive care provided patient clinically stabilized and was ready for discharge repeated troponin was negative CEA noted to be elevated 31.4 Surgeon followed with no further pursue given DNR/DNI status Surgeon followed surgeon seen and evaluated patient wound care provided per surgeon recommendation for multiply for wound care present on admission patient is a bilateral AKA. Continue wound care at the facility Proposed patient repair comfort focused measures only with end-of-life care and pain management. ID specialist recommended to stop antibiotics upon discharge antibiotic stopped upon discharge leukocytosis resolved no fever sodium down so dium trending down BUN from 44 down to 22 FINAL DIAGNOSES: Possible pneumonia UTI Hypernatremia Hypokalemia Dehydration Hypotension Dysphagia, feeding by G-tube Alzheimer dementia Cerebrovascular disease, history of CVA Hypertension Hypercholesterolemia Congestive heart failure Anemia Hypoalbuminemia PVD with bilateral AKA Decubitus skin ulcer , present on admission c Chronic respiratory failure with oxygen dependency DISCHARGE MEDICATIONS: See Medication Reconciliation list. DISCHARGE INSTRUCTIONS: Patient was discharged to the [facility] facility. Follow up with medical doctor at the facility. I have been assigned to dictate discharge summary for this account. I was not involved in the patient's management. Stephanie Jessica NP May 30, 2020 08:30
== END 2020-05-27 20:45 | DRG 194 ==
LOC: EDBD 16:13 → EMR 17:06 → OBSVTOIN 18:50 → 2E 18:50 → EDBEDREQ 18:54 → EDBEDREQSVC 19:43 → EDBEDREQ 19:43
DX: J18.9 Pneumonia, unspecified organism (principal); E87.0 Hyperosmolality and hypernatremia; I69.351 Hemiplegia and hemiparesis following cerebral infarction affecting right dominant side; Z43.1 Encounter for attention to gastrostomy; N39.0 Urinary tract infection, site not specified; J96.10 Chronic respiratory failure, unspecified whether with hypoxia or hypercapnia; R65.10 Systemic inflammatory response syndrome (SIRS) of non-infectious origin without acute organ dysfunction; E86.0 Dehydration; Z51.5 Encounter for palliative care; G30.9 Alzheimer's disease, unspecified; F02.80 Dementia in other diseases classified elsewhere, unspecified severity, without behavioral disturbance, psychotic disturbance, mood disturbance, and anxiety; L89.151 Pressure ulcer of sacral region, stage 1; I11.0 Hypertensive heart disease with heart failure; I50.9 Heart failure, unspecified; E11.9 Type 2 diabetes mellitus without complications; Z79.02 Long term (current) use of antithrombotics/antiplatelets; R13.10 Dysphagia, unspecified; Z66 Do not resuscitate; E87.6 Hypokalemia; I95.9 Hypotension, unspecified; E78.00 Pure hypercholesterolemia, unspecified; Z89.612 Acquired absence of left leg above knee; Z89.611 Acquired absence of right leg above knee; D50.9 Iron deficiency anemia, unspecified
CPT/HCPCS: 36415; 71045; 80053; 80069; 80202; 81001; 82378; 82550; 82607; 82746; 83036; 83540; 83550; 83615; 83735; 83880; 84100; 84133; 84300; 84484; 84550; 85007; 85025; 85044; 85060; 85610; 85651; 85730; 86140; 87081; 87086; 89050; 93005; 93306; 96361; 96374; 99291; J7030; J8499; U0002